=== PATIENT | male | born 1955 | race Caucasian/White ===

== ENCOUNTER 2017-01-26 15:15 | Inpatient (IN) ==
[2017-01-26] MEDS ORDERED: methylPREDNISolone 125 MG/2 ML VIAL IVP ONE (15:26)
[2017-01-26] MEDS ORDERED: Albuterol 2.5 MG/3 ML NEBULIZER IH ONE (15:26)
[2017-01-26] MEDS ORDERED: Vancomycin 1,000 MG in D5% in Water 250 ML IVPB ONE (15:39)
[2017-01-26] MEDS ORDERED: Cefepime HCl 2,000 MG in D5% in Water (Mini-Bag+) 100 ML IVPB ONE (15:39)
[2017-01-26 15:43] LABS: Basophils % 0.4 %; Hematocrit 33.3 % (37.5-50.1); Hemoglobin 10.7 g/dL (12.9-16.9); Immature Granulocytes % 3.5 % (0-4); Lymphocytes # 0.5 K/mcL (0.6-4.6); Lymphocytes % 6.2 %; Mean Corpuscular HGB Conc 32.1 g/dL (31.6-35.5); Mean Corpuscular Hemoglobin 31.8 pg (28.0-33.3); Mean Corpuscular Volume 99.1 fL (83.0-100.0); Mean Platelet Volume 9.4 fL (9.4-12.4); Monocytes # 0.5 K/mcL (0.0-1.3); Monocytes % 6.3 %; Neutrophils # 6.8 K/mcL (1.6-8.9); Nucleated Red Blood Cells 0.7 /100 WBC (0); Platelet Count 349 K/mcL (140-400); Red Blood Count 3.36 M/mcL (4.19-5.50); Segmented Neutrophils % 83.6 %
[2017-01-26 15:55] LABS: Calcium 8.7 mg/dL (8.6-10.8); Potassium 2.9 mEq/L (3.5-4.5)
[2017-01-26 16:42] LABS: VBG HCO3 36.1 mEq/L (21-27); VBG PH 7.41 pH Units (7.32-7.42)
[2017-01-26] MEDS ORDERED: Albuterol 2.5 MG/3 ML NEBULIZER IH PRN (21:30)
[2017-01-26] MEDS ORDERED: *HR* OxyCODONE Immed Rel 5 MG TABLET PO PRN (21:30)
[2017-01-26] MEDS ORDERED: *HR* Dextrose 50 % in Water (Syg) 50 ML SYRINGE IVP PRN (21:30)
[2017-01-26] MEDS ORDERED: Acetaminophen 325 MG TABLET PO PRN (21:30)
[2017-01-26] MEDS ORDERED: Dextrose Gel 15 GM PO PRN ×2 (21:30)
[2017-01-26] MEDS ORDERED: Ondansetron 4 MG/2 ML VIAL IVP PRN (21:30)
[2017-01-26] MEDS ORDERED: *HR* Morphine 2 MG/ML SYRINGE IVP PRN (21:30)
[2017-01-26] MEDS ORDERED: Naloxone 0.4 MG/ML INJ IVP PRN (21:30)
[2017-01-26] MEDS ORDERED: D5% in Water 1,000 ML IVC PRN (21:30)
[2017-01-26] MEDS ORDERED: Magic Mouthwash 10 ML UD Cup PO PRN (21:43)
[2017-01-26] MEDS ORDERED: NON-FORMULARY MEDICATION 1 EACH EACH (Oxygen [Oxygen] 3 L) SCH (21:45)
[2017-01-26] MEDS ORDERED: Potassium Chloride 20 MEQ, Lidocaine 1% 2 ML in D5% in Water 250 ML IVPB ONE (21:46)
[2017-01-26] MEDS ORDERED: Bumetanide 1 MG/4 ML VIAL IVP STA (21:50)
[2017-01-26] MEDS ORDERED: metOLazone 5 MG TABLET PO STA (21:50)
--- NOTE | 2017-01-26 21:55 | Internal Med History&Physical ---
Date of Encounter: 01/26/17 Time of Encounter: 21:00 Assessment and Plan (1) Acute and chronic respiratory failure ([id number]) Status: Acute . Qualifiers: Respiratory failure complication: hypoxia and hypercapnia Qualified Code(s) : J96.21 - Acute and chronic respiratory failure with hypoxia; J96.22 - Acute and chronic respiratory failure with hypercapnia (2) Acute exacerbation of chronic obstructive airways disease Status: Acute . (3) ESRD on hemodialysis Status: Chronic . (4) Elevated troponin Status: Acute . (5) HCAP (healthcare-associated pneumonia) Status: Acute . (6) History of coronary artery bypass graft Status: Chronic . (7) Lung cancer Status: Inactive . Qualifiers: Laterality: unspecified laterality Lung location: unspecified part of lung Qualified Code(s): C34.90 - Malignant neoplasm of unspecified part of unspecified bronchus or lung (8) CAD (coronary artery disease) Status: Chronic . Qualifiers: Coronary Disease-Associated Artery/Lesion type: bypass graft [place] vs. transplanted heart: [place] heart Associated angina: with unspecified angina Qualified Code(s): I25.709 - Atherosclerosis of coronary artery bypass graft(s) , unspecified, with unspecified angina pectoris (9) Diabetes mellitus, type 2 Status: Chronic . Qualifiers: Diabetes mellitus complication status: with unspecified complications Diabetes mellitus terminal operator insulin use: without terminal operator use Qualified Code( s): E11.8 - Type 2 diabetes mellitus with unspecified complications (10) HLD (hyperlipidemia) Status: Chronic . Qualifiers: Hyperlipidemia type: mixed hyperlipidemia Qualified Code(s): E78.2 - Mixed hyperlipidemia (11) HTN (hypertension) Status: Chronic . 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 (13) Post-radiation pneumonitis Status: Acute . Internal Medicine - H&P: HPI Chief complaint: Difficulty breathing Admitted From: Emergency Dept Plans for Post Hospital Care: Home History of present illness: Mr. Guardado is a 61 year old male admitted to [facility] emergency department when he presented with complaints of difficulty breathing. 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 The patient was sent to the ED for evaluation by his consult and oncology as he was undergoing evaluation for his ongoing cancer therapy. Because of his dyspnea and his generalized malaise and concerned for possible pneumonia. Patient had been undergoing outpatient management for community acquired infection without success since 01/20. Findings in the ED: Temperature 97. Pulse 70-107. Respirations 16-20. BP 145-167/82-99. O2 saturation by pulse oximetry 94-96% on 2 L per nasal cannula. WBC 8.1 hemoglobin 10.7 platelets 349,000. Differential normal. Metabolic panel normal except potassium 2.9 chloride 97. BUN 20 creatinine 1.62. GFR 44. Troponin 0.14 BNP 4784. Lactic acid 1.4. Venous blood gas pH 7.41 PCO2 57 PO2 22 bicarbonate 36. Chest x-ray noted unchanged ill-defined opacity in the right suprahilar region. Consistent with previously seen malignancy. Interstitial pulmonary edema. Suspected bilateral perihilar alveolar edema. Trace pericardial effusions. Mild cardiomegaly suggesting congestive heart failure. CT chest without contrast findings new centrilobular nodular opacities. Posterior certainly in the lingula concerning for infectious process. Decreased size of right perihilar mass. Adjacent airspace opacities in the right upper lobe. Decreased from prior exam. May represent resolving postobstructive pneumonia. Mild right perihilar groundglass opacities. Most prominent along the lung bases. Nonspecific. Postradiation pneumonitis. Asymmetric pulmonary edema or atypical infection. Small right pleural effusion. Mild mediastinal lymphadenopathy. Moderate to severe emphysema. Coronary atherosclerosis. Preliminary impression suggest acute on chronic hypoxic hypercapnic respiratory failure. Presentation is multifactorial. Patient presents in the setting of volume overload in a hemodialysis dependent end-stage renal disease. Demand ischemia with troponin elevation is noted. Modest metabolic and electrolyte derangements are apparent. Findings are suggestive of upper and lower respiratory tract infection without remedy. Tympanic inflammatory response syndrome criteria present at admission. The patient is acutely ill. Findings are suggestive of sepsis etiology/source to be clarified. Workup and treatments will proceed comprehensively. The patient was visited and interviewed and examined. Cumulative laboratory and radiographic data base will be considered and discussed. Pertinent ancillary medical records including ECW and PCI documentation when available was reviewed and considered. Given the patient's presenting concerns, past medical history, clinical findings and symptoms, he is admitted at this time will undergo further evaluation and disposition. Orders were written as per Computerized physician us customs and border officer system.......................................................................... .................... Consultative opinion will be sought as clinical circumstances justify. Initial consultation submitted to nephrology and dialysis team facilitate hemodialysis scheduling and disposition Pain management needs will be addressed. Laboratory/ radiographic data base will be updated as appropriate. Studies include: Cultures of blood urine sputum, UA, UDS, pt/inr, aptt, ddimer, cardiac injury panel, BNP, metabolic and hematologic panel, magnesium, phosphorus, ionized calcium, thyroid panel, lipid profile, A1c, C-peptide, CRP, sedimentation rate, respiratory infection profile, respiratory virus panel, blood gas, MRSAnasal swab, lactic acid, serologies, etc. Precautions: Aspiration, fall, delirium protocol/surveillance initiated. Telemetry with continuous hemodynamic monitoring and pulse oximetry initiated. Empiric antibiotic coverage (HCAP): Intravenous vancomycin, cefepime and Levaquin pending culture data. Special studies: CT/CTA chest, chest x-ray, telemetry, EKG. Pulmonary toilet: Incentive spirometry, aerosol bronchodilator, mucolytic, antitussive, supplemental oxygen. Corticosteroid therapy. CPAP/BiPAP supplemental oxygen delivery. Aerosol Mucomyst therapy. Fluid and electrolyte repletion efforts will proceed. Careful attention to fluid balance and renal recovery will be emphasized. Avoidance of nephrotoxic exposure and adverse drug drug interaction in the setting of impaired renal function will be monitored closely. Acute coronary syndrome protocol/surveillance initiated. Acute heart failure protocols/surveillance initiated. 1500-1800mls total fluid restriction per 234hrs. Gentle diuresis. Initiation of preload and afterload reduction therapies. Correction of metabolic and acid-base deficits and electrolyte repletion. DVT and PUD prophylaxis initiated: PPI therapy, intermittent pneumatic cuffs. Subcutaneous heparin. Early ambulation will be encouraged. Immunization updates recommended. Influenza and pneumococcal vaccinations as part of ongoing preventative healthcare recommendations strongly recommended. Smoking cessation counseling briefly addressed. Patient is a former smoker. Advanced care directive discussion briefly addressed. Patient does not declare any healthcare restrictions at this time. Cardiovascular risk appraisal and cardiovascular risk reduction efforts will be emphasized. Physical /occupational therapy may be counseled to evaluate patient's functional capacity and progressive mobility if circumstances justify. Sliding scale insulin coverage, ADA/RENAL dietary restraint and schedule an as- needed basis fingerstick glucose assessments were initiated. Nutrition/ diabetes education counseling may be considered as circumstances justify. Outpatient medication schedules will be reviewed, confirmed and facilitated as appropriate. Reconciliation of home treatments including adjustments, substitutions and reintroduction into the treatment regimen will address necessary maintenance therapies for chronic pre-existing medical conditions. Plan of care has been reviewed and discussed in detail with the patient. Questions addressed. Hospital course dictated by clinical findings, treatment response and potential consultative interventions. Patient is a risk for further acute clinical decline due to his presenting chief complaints and co-morbidities. Condition is serious. Prognosis is guarded. CODE STATUS is full. Past Med Surg Social Fam HX - Past Medical History Source: old records reviewed Medical history: arthritis, cancer, CHF, coronary artery disease, diabetes, dialysis, GERD, hyperlipidemia, hypertension, myocardial infarction, peripheral artery disease, renal disease Psychiatric history: anxiety, depression - Past Surgical History Surgical History: angioplasty/stent, carotid endarterectomy, coronary bypass ( CABG), orthopedic, other, other - Social History Smoking Status: Former smoker Smokeless Tobacco Status: No Alcohol use: none Drug use: none - Family History Brother Adopted: No Family Member Ethnicity: Non- Living Status: Hx Family Cardiac Disorders: Yes Hx Family Respiratory Disorders: Yes (dad black lung) Hx Family Cancer: Yes (mother) Hx Family GI Disorders: No Hx Family Endocrine Disorder: Yes (sister) Hx Family Neuromuscular Disorders: No Hx Family Neurologic Disorders: No Hx Family HEENT Disorders: No Hx Family Autoimmune Disorders: No Mother Adopted: No Living Status: Hx Family Cardiac Disorders: No Hx Family Respiratory Disorders: No Hx Family Cancer: Yes Hx Family GI Disorders: No Hx Family Endocrine Disorder: No Hx Family Neuromuscular Disorders: No Hx Family Neurologic Disorders: No Hx Family HEENT Disorders: No Hx Family Autoimmune Disorders: No Father Adopted: No Family Member Ethnicity: Non- Living Status: Hx Family Cardiac Disorders: No Hx Family Respiratory Disorders: Yes Hx Family Cancer: No Hx Family GI Disorders: No Hx Family Endocrine Disorder: No Hx Family Neuromuscular Disorders: No Hx Family Neurologic Disorders: No Hx Family HEENT Disorders: No Hx Family Autoimmune Disorders: No Internal Medicine - H&P: Meds Atorvastatin [Lipitor] 40 mg PO HS #30 tablet 07/03/15 [Rx] Famotidine [Pepcid] 10 mg PO BID #60 tablet 07/03/15 [Rx] Albuterol Sulfate [Albuterol Inhaler] 2 puff IH Q4HR 07/29/15 [History] Budesonide/Formoterol 160/4.5 [Symbicort] 2 puff IH BIDR 07/29/15 [History] Gabapentin [Neurontin] 100 mg PO TID 07/29/15 [History] Glimepiride [Amaryl] 2 mg PO DAILY 07/29/15 [History] Calcium Acetate [Phos-LO] 667 mg PO TIDWM #90 capsule 10/02/15 [Rx] Carvedilol [Coreg] 25 mg PO BID #60 tablet 10/02/15 [Rx] Furosemide [Lasix] 40 mg PO DAILY 08/31/16 [History] Oxygen 3 l .ROUTE AD 08/31/16 [History] Albuterol Neb [Proventil Neb] 2.5 mg IH Q4HR PRN #30 vial.neb 09/03/16 [Rx] Multivitamin [Multivitamins] 1 cap PO DAILY 11/03/16 [History] Magic Mouthwash [Magic Mouthwash BLM] 10 ml PO QID PRN #240 ml 12/18/16 [Rx] Chlorpromazine HCl 25 mg PO Q8HR PRN #14 tablet 01/18/17 [Rx] Oxycodone HCl [Roxicodone 30 MG Immed Release] 30 mg PO Q6HR PRN #90 tab [Rx] Sucralfate [Carafate] 1 gm PO QIDAC #120 tablet 01/24/17 [Rx] Blood Sugar Diagnostic [Glucose Test Strip] 1 each ACHS #100 strip 01/30/17 [ Rx] Lancets [Accu-Chek Safe-T-Pro] 1 each ACHS #100 each 01/30/17 [Rx] Levofloxacin [Levaquin] 750 mg PO Q48H #3 tablet 01/30/17 [Rx] Oseltamivir Phosphate [Tamiflu] 30 mg PO BID #6 capsule 01/30/17 [Rx] PredniSONE 40 mg PO DAILY #10 tablet 01/30/17 [Rx] Umeclidinium [place] [Incruse Ellipta] 62.5 mcg IH DAILY #1 blst.w.dev 01/30/17 [Rx] Allergies codeine Allergy (Verified 01/20/17 23:57) Itching pollen extracts Allergy (Verified 01/20/17 23:57) Itching shellfish derived Adverse Reaction (Verified 01/20/17 23:57) Nausea IVP DYE Allergy (Intermediate, Uncoded 01/20/17 23:57) Vomiting All Systems PM: A 10-system review of systems was performed and is negative for pertinent findings except as documented above in the HPI. Allergies Allergy/AdvReac Type Severity Reaction Status Date / Time codeine Allergy Itching Verified 01/20/17 23:57 pollen extracts Allergy Itching Verified 01/20/17 23:57 shellfish derived AdvReac Nausea Verified 01/20/17 23:57 IVP DYE Allergy Intermediate Vomiting Uncoded 01/20/17 23:57 Patient Problems (Last Updated 01/26/17 @ 21:59 by Yariel Gary MD) Acute and chronic respiratory failure (yriua-[id number]-lqxufsm) (Acute Medical) J96.20 Acute exacerbation of chronic obstructive airways disease (Acute Medical) J44.1 Elevated troponin (Acute Medical) R79.89 HCAP (healthcare-associated pneumonia) (Acute Medical) J18.9 Post-radiation pneumonitis (Acute Medical) J70.0 CAD (coronary artery disease) (Chronic Medical) I25.10 Diabetes mellitus, type 2 (Chronic Medical) E11.9 ESRD on hemodialysis (Chronic Medical) N18.6, Z99.2 HLD (hyperlipidemia) (Chronic Medical) E78.5 HTN (hypertension) (Chronic Medical) I10 History of coronary artery bypass graft (Chronic Surgical) Z95.1 Lung cancer (Chronic Medical) C34.90 Systolic heart failure secondary to coronary artery disease (Chronic Medical) I50.20, I25.10 Acute bronchitis (Acute Medical) J20.9 Rpezh-or-qbqwtiw kidney injury (Acute Medical) N17.9, N18.9 CKD (chronic kidney disease) (Acute Medical) N18.9 COPD exacerbation (Acute Medical) J44.1 Chronic renal disease (Acute Medical) N18.9 Community acquired pneumonia (Acute Medical) J18.9 DVT prophylaxis (Acute Medical) [id number] Dyspnea (Acute Medical) R06.00 Dyspnea (Acute Medical) R06.00 Elevated troponin (Acute Medical) R79.89 Hemoptysis (Acute Medical) R04.2 Hyperphosphatemia (Acute Medical) E83.39 Hypocalciuria (Acute Medical) E83.59 Hypomagnesemia (Acute Medical) E83.42 Hyponatremia (Acute Medical) E87.1 Hypoxia (Acute Medical) R09.02 Leukocytosis (Acute Medical) D72.829 NSTEMI (non-ST elevated myocardial infarction) (Acute Medical) I21.4 NSTEMI (non-ST elevated myocardial infarction) (Acute Medical) I21.4 Normocytic anemia (Acute Medical) D64.9 Pedal edema (Acute Medical) R60.0 Pneumonia (Acute Medical) J18.9 Pneumonia (Acute Medical) J18.9 Pneumonia due to Gram-negative bacteria (Acute Medical) J15.6 Renal failure (Acute Medical) N19 Right middle lobe pneumonia (Acute Medical) J18.9 Sepsis (Acute Medical) A41.9 Superficial injury of penis without infection (Acute Medical) S30.93XA Upper respiratory infection (Acute Medical) J06.9 Anemia (Chronic Medical) D64.9 Anemia in CKD (chronic kidney disease) (Chronic Medical) N18.9, D63.1 CHF (congestive heart failure) (Chronic Medical) I50.9 COPD (chronic obstructive pulmonary disease) (Chronic Medical) J44.9 Constipation (Chronic Medical) K59.00 Diabetes mellitus (Chronic Medical) E11.9 ESRD (end stage renal disease) (Chronic Medical) N18.6 ESRD (end stage renal disease) on dialysis (Chronic Medical) N18.6, Z99.2 GERD (gastroesophageal reflux disease) (Chronic Medical) K21.9 Mitral valve insufficiency (Chronic Medical) I34.0 Non-insulin dependent type 2 diabetes mellitus (Chronic Medical) E11.9 Solitary kidney (Chronic Medical) Q60.0 Tobacco abuse (Chronic Medical) Z72.0 Type 2 diabetes mellitus (Chronic Medical) E11.9 Acute exacerbation of chronic obstructive pulmonary disease (COPD) (Resolved Medical) J44.1 Acute kidney injury superimposed on chronic kidney disease (Resolved Medical) S37.009A, N18.9 DVT prophylaxis (Resolved Medical) [id number] Pneumonia (Resolved Medical) J18.9 Tachycardia (Resolved Medical) R00.0 CKD (chronic kidney disease) stage 4, GFR 15-29 ml/min (Inactive Medical) CKD (chronic kidney disease), stage IV (Inactive Medical) Chronic kidney disease (Inactive Medical) N18.9 Chronic renal failure (Inactive Medical) N18.9 Congestive heart failure (Inactive Medical) Diarrhea (Inactive Medical) R19.7 Dog bite (Inactive Medical) Epistaxis (Inactive Medical) R04.0 Epistaxis (Inactive Medical) R04.0 Epistaxis (Inactive Medical) R04.0 Epistaxis, recurrent (Inactive Medical) R04.0 Hemoptysis (Inactive Medical) R04.2 Hemoptysis (Inactive Medical) R04.2 Hypoglycemia (Inactive Medical) E16.2 Hypokalemia due to loss of potassium (Inactive Medical) E87.6 Intractable hiccups (Inactive Medical) R06.6 Laceration (Inactive Medical) Laceration of penis (Inactive Medical) Pneumonia (Inactive Medical) J18.9 Skin tear (Inactive Medical) Squamous cell lung cancer (Inactive Medical) C34.90 - Constitutional Constitutional: as per HPI, fatigue, malaise, weakness, no chills, no fever(s), no night sweats - EENT Eyes: as per HPI, no change in vision, no discharge, no pain, no photophobia Ears: as per HPI, no ear discharge, no ear pain, no tinnitus Nose, mouth and throat: as per HPI, no dysphagia, no nasal discharge, no neck pain, no sore throat - Cardiovascular Cardiovascular ROS IM: as per HPI, dyspnea, dyspnea on exertion, other, no chest pain, no diaphoresis, no lightheadedness, no palpitations, no syncope - Respiratory Respiratory: as per HPI, cough, dyspnea, dyspnea on exertion, wheezing, chest congestion, no excessive phlegm production - Gastrointestinal Gastrointestinal: as per HPI, no abdominal pain, no diarrhea, no hematemesis, no hematochezia, no melena, no nausea, no vomiting - Genitourinary Genitourinary ROS male: as per HPI, other - Musculoskeletal Musculoskeletal ROS IM: as per HPI, no numbness, no tingling - Integumentary Integumentary IM: as per HPI, no rash, no unusual bruising - Neurological Neurological ROS: as per HPI, no confusion, no convulsions, no focal weakness, no numbness, no tingling, no tremor(s) - Psychiatric Psychiatric: as per HPI - Endocrine Endocrine IM: as per HPI - Hematologic/Lymphatic Hematologic/Lymphatic: as per HPI, no easy bruising - Allergic/Immunologic Allergic/Immunologic: as per HPI - Constitutional Vitals: Temp Pulse Resp BP Pulse Ox 98.2 F 107 18 167/99 99 01/26/17 21:23 01/26/17 21:23 01/26/17 21:23 01/26/17 21:23 01/26/17 21:23 Vital Signs Temp Pulse Resp BP Pulse Ox 01/26/17 21:23 98.2 F 107 18 167/99 99 01/26/17 19:00 18 144/82 01/26/17 18:31 112 16 155/98 97 01/26/17 15:40 95 01/26/17 15:16 97.5 F L 70 16 145/82 94 Intake and Output 01/26/17 01/26/17 01/26/17 07:59 15:59 23:59 Intake Total 250 / 250 Balance 250 / 250 Intake: IV Fluids 250 / 250 Vancocin 1,000 MG In 250 / 250 Dextrose 5% 250 ML @ 167 mls/hr IVPB ONCE ONE Rx#: [id number] Other: Weight 65.317 kg 63.503 kg Patient Weight 01/26/17 23:59 Weight 63.503 kg General appearance: Present: cachectic, disheveled, mild distress, A&O X 3, answers questions appropriately - Head Head exam: Present: atraumatic, normocephalic - Eye Eye exam: Present: EOMI, PERRL, conjuntiva pink, sclera anicteric Pupils: Present: normal accommodation, PERRL - ENT ENT exam: Present: mucous membranes moist, normal oropharynx - Neck Neck exam general surgery: Present: supple, trachea midline. Absent: lymphadenopathy - Respiratory Respiratory exam: Present: decreased breath sounds, rhonchi, wheezes. Absent: accessory muscle use, CTAB, rales - Cardiovascular Cardiovascular exam: Present: distant heart sounds, RRR, +S1, +S2. Absent: diastolic murmur, gallop, rubs, systolic murmur - GI/Abdominal GI/Abdominal exam: Present: normal bowel sounds, soft, no peritoneal signs. Absent: distended, tenderness - Extremities Exam Extremities exam: Present: full ROM, warm, radial pulses palpable and symetrical. Absent: calf tenderness, cyanotic, pedal edema - Neurological Exam Neurological exam: Present: alert, CN II-XII intact, oriented X3, no focal deficits. Absent: pronater drift, facial droop, speech deficit - Psychiatric Psychiatric exam: Present: normal affect, normal mood - Skin Skin exam: Present: dry, intact Internal Med - H&P Results - Labs CBC & Chem 7: 01/30/17 06:43 01/30/17 06:43 Labs: Short CBC 01/26/17 Range/Units 15:33 WBC 8.1 D (4.3-11.1) K/mcL Hgb 10.7 L D (12.9-16.9) g/dL Hct 33.3 L (37.5-50.1) % Plt Count 349 D (140-400) K/mcL Neutrophils # 6.8 (1.6-8.9) K/mcL BMP 01/26/17 Range/Units 15:33 Sodium 139 (136-145) mEq/L Potassium 2.9 L (3.5-4.5) mEq/L Chloride 97 L (98-109) mEq/L Carbon Dioxide 29 (19-29) mEq/L BUN 20 (8-26) mg/dL Creatinine 1.62 H (0.72-1.25) mg/dL Glucose 77 (70-99) mg/dL Calcium 8.7 (8.6-10.8) mg/dL Cardiac Enzymes 01/26/17 Range/Units 15:33 Troponin I 0.14 H* (0-0.03) ng/mL Abnormal lab results RBC 3.36 M/mcL (4.19-5.50) L 01/26/17 15:33 Hgb 10.7 g/dL (12.9-16.9) L D 01/26/17 15:33 Hct 33.3 % (37.5-50.1) L 01/26/17 15:33 RDW 19.0 % (11.5-14.5) H 01/26/17 15:33 Lymphocytes # 0.5 K/mcL (0.6-4.6) L 01/26/17 15:33 Nucleated RBCs/100 WBC 0.7 /100 WBC (0) H 01/26/17 15:33 VBG pCO2 57 mmHg (41-51) H 01/26/17 16:26 VBG pO2 22 mmHg (25-40) L 01/26/17 16:26 VBG HCO3 36.1 mEq/L (21-27) H 01/26/17 16:26 Potassium 2.9 mEq/L (3.5-4.5) L 01/26/17 15:33 Chloride 97 mEq/L (98-109) L 01/26/17 15:33 Creatinine 1.62 mg/dL (0.72-1.25) H 01/26/17 15:33 Est GFR ( Amer) 53 (> 60) L 01/26/17 15:33 Est GFR (Non-Af Amer) 44 (> 60) L 01/26/17 15:33 Troponin I 0.14 ng/mL (0-0.03) H* 01/26/17 15:33 B-Natriuretic Peptide 4784 pg/mL (0-100) H 01/26/17 15:33 Laboratory Last Values WBC 8.1 K/mcL (4.3-11.1) D 01/26/17 15:33 RBC 3.36 M/mcL (4.19-5.50) L 01/26/17 15:33 Hgb 10.7 g/dL (12.9-16.9) L D 01/26/17 15:33 Hct 33.3 % (37.5-50.1) L 01/26/17 15:33 MCV 99.1 fL (83.0-100.0) 01/26/17 15:33 MCH 31.8 pg (28.0-33.3) 01/26/17 15:33 MCHC 32.1 g/dL (31.6-35.5) 01/26/17 15:33 RDW 19.0 % (11.5-14.5) H 01/26/17 15:33 Plt Count 349 K/mcL (140-400) D 01/26/17 15:33 MPV 9.4 fL (9.4-12.4) 01/26/17 15: Immature Gran % 3.5 % (0-4) 01/26/17 15:33 Seg Neutrophils % 83.6 % 01/26/17 15:33 Lymphocytes % 6.2 % 01/26/17 15:33 Monocytes % 6.3 % 01/26/17 15:33 Eosinophils % 0.0 % 01/26/17 15: Basophils % 0.4 % 01/26/17 15:33 Neutrophils # 6.8 K/mcL (1.6-8.9) 01/26/17 15: Lymphocytes # 0.5 K/mcL (0.6-4.6) L 01/26/17 15: Monocytes # 0.5 K/mcL (0.0-1.3) 01/26/17 15: Eosinophils # 0.0 K/mcL (0.0-0.6) 01/26/17 15: Basophils # 0.0 K/mcL (0.0-0.2) 01/26/17 15:33 Nucleated RBCs/100 WBC 0.7 /100 WBC (0) H 01/26/17 15:33 VBG pH 7.41 pH Units (7.32-7.42) 01/26/17 16:26 VBG pCO2 57 mmHg (41-51) H 01/26/17 16:26 VBG pO2 22 mmHg (25-40) L 01/26/17 16:26 VBG HCO3 36.1 mEq/L (21-27) H 01/26/17 16:26 Sodium 139 mEq/L (136-145) 01/26/17 15:33 Potassium 2.9 mEq/L (3.5-4.5) L 01/26/17 15:33 Chloride 97 mEq/L (98-109) L 01/26/17 15:33 Carbon Dioxide 29 mEq/L (19-29) 01/26/17 15:33 BUN 20 mg/dL (8-26) 01/26/17 15:33 Creatinine 1.62 mg/dL (0.72-1.25) H 01/26/17 15:33 Est GFR ( Amer) 53 (> 60) L 01/26/17 15:33 Est GFR (Non-Af Amer) 44 (> 60) L 01/26/17 15:33 BUN/Creatinine Ratio 12 (6-26) 01/26/17 15:33 Glucose 77 mg/dL (70-99) 01/26/17 15:33 Calculated Osmolality 289 (280-300) 01/26/17 15:33 Lactic Acid 1.4 mmol/L (0.5-2.2) 01/26/17 15:33 Calcium 8.7 mg/dL (8.6-10.8) 01/26/17 15:33 Magnesium 2.0 mg/dL (1.6-2.6) 01/26/17 15:33 Troponin I 0.14 ng/mL (0-0.03) H* 01/26/17 15:33 B-Natriuretic Peptide 4784 pg/mL (0-100) H 01/26/17 15:33 - Impressions Chest X-Ray 01/26/17 15:35 IMPRESSION: 1. Unchanged ill-defined opacity in the right suprahilar region consistent with previously seen malignancy. 2. Interstitial pulmonary edema, suspected bilateral perihilar alveolar edema, trace pericardial effusions, and mild cardiomegaly, suggesting congestive heart failure. D/ / Sabas Mg MD / Sabas Mg MD Interpreting Provider: Sabas Mg MD Chest CT 01/26/17 15:40 IMPRESSION: New centrilobular nodular opacities posteriorly in the lingula, concerning for an infectious process. Decreased size of right perihilar mass. Adjacent airspace opacities in the right upper lobe are also decreased from the prior exam, and may represent resolving postobstructive pneumonia. Mild right perihilar ground-glass opacities, most prominently along the lung bases. They are nonspecific and could be related to postradiation pneumonitis, asymmetric pulmonary edema, or atypical infection. Small right pleural effusion, new from prior exam. Mild mediastinal lymphadenopathy, slightly decreased from prior exam. Moderate to severe emphysema. Coronary atherosclerosis. D/ / 01/26/2017 17:56:57 Baldo Kearney MD / rupal Interpreting Provider: Baldo Kearney MD - Attending Attestation Allergies codeine Allergy (Verified 01/20/17 23:57) Itching pollen extracts Allergy (Verified 01/20/17 23:57) Itching shellfish derived Adverse Reaction (Verified 01/20/17 23:57) Nausea IVP DYE Allergy (Intermediate, Uncoded 01/20/17 23:57) Vomiting Home Medications Medication Instructions Recorded Confirmed Type Albuterol Sulfate [Albuterol 2 puff IH Q4HR 07/29/15 01/26/17 History Inhaler] Budesonide/Formoterol 160/4.5 2 puff IH BIDR 07/29/15 01/26/17 History [Symbicort] Gabapentin [Neurontin] 100 mg PO TID 07/29/15 01/26/17 History Glimepiride [Amaryl] 2 mg PO DAILY 07/29/15 01/26/17 History Furosemide [Lasix] 40 mg PO DAILY 08/31/16 01/26/17 History Oxygen 3 l .ROUTE AD 08/31/16 01/26/17 History Multivitamin [Multivitamins] 1 cap PO DAILY 11/03/16 01/26/17 History Tiotropium [Spiriva] 18 mcg IH DAILY 01/26/17 01/26/17 History I & O 01/23/17 01/24/17 01/25/17 01/26/17 23:59 23:59 23:59 23:59 Intake Total 250 / 250 Balance 250 / 250 Weight 63.503 kg Intake: IV Fluids 250 / 250 Vancocin 1,000 MG In 250 / 250 Dextrose 5% 250 ML @ 167 mls/hr IVPB ONCE ONE Rx#: [id number] Medications Acetaminophen (Tylenol) 650 mg PO Q6HR PRN PRN Reason: Mild Pain (1-3) Stop: 07/28/17 21:31 Albuterol Sulfate (Proventil Neb) 2.5 mg IH Q2H PRN PRN Reason: Shortness Of Breath/Wheezing Stop: 07/28/17 21:31 Albuterol/Ipratropium (Duoneb) 3 ml IH QIDR LIDA Stop: 07/28/17 23:01 Atorvastatin Calcium (Lipitor) 40 mg PO HS LIDA Stop: 07/29/17 21:01 Bumetanide (Bumex) 1 mg IVP ONCE STA Stop: 01/26/17 21:51 Calcium Acetate (Phos-Lo) 667 mg PO TIDWM LIDA Stop: 07/29/17 08:01 Carvedilol (Coreg) 25 mg PO BID LIDA PRN Reason: Protocol Stop: 07/29/17 09:01 Dextrose/Water (Dextrose 50% (Syg)) 25 ml IVP AD PRN PRN Reason: Hypoglycemia Stop: 07/28/17 21:31 Docusate Sodium (Colace) 100 mg PO BID LIDA Stop: 07/29/17 09:01 Famotidine (Pepcid) 10 mg PO BID LIDA PRN Reason: Protocol Stop: 07/29/17 09:01 Furosemide (Lasix) 40 mg PO DAILY [facility] Stop: 07/29/17 09:01 Gabapentin (Neurontin) 100 mg PO TID LIDA Stop: 07/29/17 09:01 Glucagon (Glucagen) 1 mg IM ONCE PRN PRN Reason: Hypoglycemia Stop: 07/28/17 21:31 Glucose (Gluctose) 15 gm PO ONCE PRN PRN Reason: Hypoglycemia Stop: 07/28/17 21:31 Glucose (Gluctose) 30 gm PO ONCE PRN PRN Reason: Hypoglycemia Stop: 07/28/17 21:31 Cefepime HCl 2,000 mg/ (Dextrose) 100 mls @ 200 mls/hr IVPB Q12HR [facility] Stop: 07/29/17 06:01 Levofloxacin/Dextrose (Levaquin 750mg/150 Ml) 750 mg in 150 mls @ 100 mls/hr IVPB DAILY [facility] PRN Reason: Protocol Stop: 07/29/17 09:01 Vancomycin HCl 1,000 mg/ (Dextrose) 250 mls @ 167 mls/hr IVPB RPHPROT LIDA PRN Reason: Protocol Stop: 07/28/17 22:01 Dextrose (Dextrose 5%) 1,000 mls @ 100 mls/hr IVC .Q10H PRN PRN Reason: HYPOGLYCEMIA Stop: 07/28/17 21:31 Potassium Chloride 20 meq/ (Lidocaine 2 ml/ Dextrose) 262 mls @ 131 mls/hr IVPB ONCE ONE Stop: 01/26/17 23:45 Insulin Detemir (Levemir) 10 unit 0.15 unit/kg (10 unit) SQ HS LIDA Stop: 07/29/17 21:01 Insulin Human Lispro (Humalog) 0 units SQ TIDAC LIDA PRN Reason: Protocol Stop: 07/29/17 07:31 Insulin Human Lispro (Humalog) 0 units SQ HS LIDA PRN Reason: Protocol Stop: 07/29/17 21:01 Metolazone (Zaroxolyn) 5 mg PO ONCE STA Stop: 01/26/17 21:51 Morphine Sulfate (Morphine Sulfate) 2 mg IVP Q2H PRN PRN Reason: Severe Pain (7-10) Stop: 07/28/17 21:31 Naloxone HCl (Narcan) 0.4 mg IVP Q2MIN PRN PRN Reason: Opioid Reversal Stop: 07/28/17 21:31 Non-Formulary Medication (Magic Mouthwash [Magic Mouthwash Blm]) 10 ml PO QID PRN PRN Reason: Mouth Sore Pain Non-Formulary Medication (Oxycodone Hcl [Roxicodone 30 Mg Immed Release]) 30 mg PO Q6HR PRN PRN Reason: Pain Non-Formulary Medication (Oxygen [Oxygen]) 3 l .ROUTE AD [facility] Stop: 07/28/17 21:46 Ondansetron HCl (Zofran) 4 mg IVP Q8HR PRN PRN Reason: Nausea And Vomiting Stop: 07/28/17 21:31 Prednisone (Prednisone) 40 mg PO DAILY [facility] Stop: 07/29/17 09:01 Sucralfate (Carafate) 1 gm PO QIDAC [facility] Stop: 07/28/17 22:01 Discontinued Medications Albuterol Sulfate (Proventil Neb) 2.5 mg IH ONCE ONE Stop: 01/26/17 15:27 Last Admin: 01/26/17 16:10 Dose: 2.5 mg Famotidine (Pepcid) 20 mg PO BID [facility] Stop: 07/29/17 09:01 Cefepime HCl 2,000 mg/ (Dextrose) 100 mls @ 200 mls/hr IVPB ONCE ONE Stop: 01/26/17 16:08 Last Admin: 01/26/17 18:29 Dose: 200 mls/hr Vancomycin HCl 1,000 mg/ (Dextrose) 250 mls @ 167 mls/hr IVPB ONCE ONE PRN Reason: Protocol Stop: 01/26/17 17:08 Last Infusion: 01/26/17 18:17 Dose: 0 mls/hr Methylprednisolone (Solu-Medrol) 125 mg IVP ONCE ONE Stop: 01/26/17 15:27 Last Admin: 01/26/17 16:35 Dose: 125 mg Oxycodone HCl (Roxicodone) 10 mg PO Q6HR PRN PRN Reason: Moderate Pain (4-6) Stop: 07/28/17 21:31 Potassium Chloride (Potassium Chloride) 20 meq PO ONCE ONE Stop: 01/26/17 16:18 Last Admin: 01/26/17 16:34 Dose: 20 meq Nursing Notes 01/26/17 18:20 Transport Report by Louise Dunn Date: 01/26/17 Transport Method: Stretcher codeine Allergy (Verified 01/20/17 23:57) Itching pollen extracts Allergy (Verified 01/20/17 23:57) Itching shellfish derived Adverse Reaction (Verified 01/20/17 23:57) Nausea IVP DYE Allergy (Intermediate, Uncoded 01/20/17 23:57) Vomiting Resuscitation Status 01/26/17 15:35 ECG 12 lead ECG [ECG] Stat Mode Of Transportation: Stretcher Reason For Exam: dyspnea Exam Performed At:: [facility] Oxygen: 3 Mental Status: Fall Risk: Isolation: Nurse Required for Transport: No ___ Yes Limb Restrictions: No ___ Yes Behavioral issue/Risk for Elopement: No ___ Yes Telemetry Room Notification: Destination: MRI XRAY STRESS ULTRASOUND CT DIALYSIS ENDO OTHER: Depart Time: Nurse: Transporter: Arrive Time: Received by: ___ Return Time: Nurse: Transporter: ] Initialized on 01/26/17 18:20 - END OF NOTE 01/26/17 15:43 Transport Report by Helen Alves Date: 01/26/17 Transport Method: Stretcher codeine Allergy (Verified 01/20/17 23:57) Itching pollen extracts Allergy (Verified 01/20/17 23:57) Itching shellfish derived Adverse Reaction (Verified 01/20/17 23:57) Nausea IVP DYE Allergy (Intermediate, Uncoded 01/20/17 23:57) Vomiting Resuscitation Status 01/26/17 15:35 XR chest 1V portable [XR] Stat Mode Of Transportation: Stretcher Reason For Exam: dyspnea Exam Performed At:: [facility] Additional Notes/Special Instructions: 26...[facility] ECG 12 lead ECG [ECG] Stat Mode Of Transportation: Stretcher Reason For Exam: dyspnea Exam Performed At:: [facility] 01/26/17 15:40 CT chest w/o contrast [CT chest wo con] [CT] Stat Mode Of Transportation: Stretcher Reason For Exam: dyspnea Order Doctor: Yeyo Garcia Exam Performed At:: [facility] Allergic to Contrast: No Oxygen: 3 Mental Status: Fall Risk: Isolation: Nurse Required for Transport: No ___ Yes Limb Restrictions: No ___ Yes Behavioral issue/Risk for Elopement: No ___ Yes Telemetry Room Notification: Destination: MRI XRAY STRESS ULTRASOUND CT DIALYSIS ENDO OTHER: Depart Time: Nurse: Transporter: Arrive Time: Received by: ___ Return Time: Nurse: Transporter: ] Initialized on 01/26/17 15:43 - END OF NOTE Orders 01/26/17 15:26 Albuterol Neb [Proventil Neb] 2.5 mg IH ONCE ONE MethylPREDNISolone [Solu-MEDROL] 125 mg IVP ONCE ONE 01/26/17 15:33 B-Type Natriuretic Peptide Stat Comment: Specimen: Send someone from the department to collect Basic Metabolic Panel Stat Comment: Specimen: Send someone from the department to collect Complete Blood Count [HEME] Stat Comment: Specimen: Send someone from the department to collect Culture,Blood [BC] Stat Comment: AGNES Source: Peripheral Venipuncture Quantity: 2 Specimen: Send someone from the department to collect Specimen Description: Lactic Acid ([facility] Only) Stat Comment: Specimen: Send someone from the department to collect Magnesium Stat Troponin I Stat Comment: Specimen: Send someone from the department to collect 01/26/17 15:35 12 lead ECG assessment [RC] NOW Cardiac monitoring [RC] .ONCE Saline lock [RC] .ONCE Supplemental oxygen titration [RC] .ONCE Physician Instructions: Vital Signs Assessment [RC] PROTOCOL XR chest 1V portable [XR] Stat Mode Of Transportation: Stretcher Reason For Exam: dyspnea Exam Performed At:: [facility] Additional Notes/Special Instructions: 26...[facility] ECG 12 lead ECG [ECG] Stat Mode Of Transportation: Stretcher Reason For Exam: dyspnea Exam Performed At:: [facility] 01/26/17 15:38 Culture,Sputum with Gram Stain [RM] Stat Comment: [facility] Source: Sputum Specimen: Send someone from the department to collect Specimen Description: 01/26/17 15:39 Cefepime HCl [Maxipime] 2,000 mg D5% in Water (Mini-Bag+) [Dextrose 5% ( Minibag+) 100 ML] 100 ml IVPB ONCE Vancomycin [Vancocin] 1,000 mg D5% in Water [Dextrose 5%] 250 ml IVPB ONCE 01/26/17 15:40 CT chest w/o contrast [CT chest wo con] [CT] Stat Mode Of Transportation: Stretcher Reason For Exam: dyspnea Order Doctor: Yeyo Garcia Exam Performed At:: [facility] Allergic to Contrast: No 01/26/17 16:17 Potassium Chloride 20 meq PO ONCE ONE 01/26/17 16:26 Culture,Blood,Additional [BC] Stat Comment: [facility] Source: Peripheral Venipuncture Quantity: 1 Specimen: Send someone from the department to collect Specimen Description: VBG [Venous Blood Gas] Stat Comment: Specimen: Send someone from the department to collect 01/26/17 18:[address] Stat Comment: Reason for Visit: pneumonia 01/26/17 21:14 Consult to Nutrition [CONS] Routine Comment: Consulting Provider: NUTRITION Reason for Dietary Consult: MST Score 01/26/17 21:26 Apply anti-embolic stockings [RC] .NOW Aspiration precautions [RC] .CONTINUOUS Falls precautions (Kory-Cartagena [RC] ONCE Incentive Spirometry [RC] .6 TIMES PER HR WHILE AWAKE Drug Screen, Urine [UCHEM] Stat Comment: Specimen: Pre-Collection Label Viral Culture,Respiratory [] Stat Comment: [facility] Source: Nasopharyngeal Specimen: Send someone from the department to collect Specimen Description: 01/26/17 21:30 Glucose, blood poc measurement [RC] ACHS Vital Signs Assessment [RC] Q4H Consult to Dry Wall Sprayer [CONS] Routine Comment: Arterial Blood Gas Stat Comment: Specimen: Send someone from the department to collect Legionella Antigen [] Stat Comment: [facility] Source: Urine,Clean Catch Specimen: Send someone from the department to collect Specimen Description: S. Pneumoniae Antigen [] Stat Comment: [facility] Source: Urine,Clean Catch Specimen: Send someone from the department to collect Specimen Description: Acetaminophen [Tylenol] 650 mg PO Q6HR PRN Albuterol Neb [Proventil Neb] 2.5 mg IH Q2H PRN D5% in Water [Dextrose 5%] 1,000 ml IVC 100 mls/hr Dextrose 50 % in Water (Syg) [Dextrose 50% (Syg)] 25 ml IVP AD PRN Dextrose Gel [Gluctose] 15 gm PO ONCE PRN Dextrose Gel [Gluctose] 30 gm PO ONCE PRN Glucagon, Human Recombinant [GlucaGen] 1 mg IM ONCE PRN Morphine [Morphine Sulfate] 2 mg IVP Q2H PRN Naloxone [Narcan] 0.4 mg IVP Q2MIN PRN Ondansetron [Zofran] 4 mg IVP Q8HR PRN OxyCODONE Immed Rel [Roxicodone] 10 mg PO Q6HR PRN Resuscitation Status: Active [RES] Routine Comment: Resuscitation Status: Full Code 01/26/17 21:31 COPD Discharge Checklist [RC] .atdischarge Cardiac monitoring [RC] .ONCE Head of bed elevation [RC] .ONCE Hypoglycemia Treatment Orders [RC] .once Notify provider [RC] once Physician Instructions: Peripheral IV [RC] CONT Consult to Nurse Navigator [CONS] Routine Comment: 01/26/17 21:32 Placement to Observation Routine Physician Instructions: Reason for Visit: Difficulty breathing Is VTE Prophylaxis Indicated?: Yes 01/26/17 21:33 Bed rest [RC] .CONT Physician Instructions: Bed rest w/bathroom privileges [RC] .PRN Cardiac Monitoring Med/Surg [RC] .CONT Telemetry Reason: Acute Heart Failure Continuous pulse oximetry [RC] CONT Comment: Measure intake and output [RC] QSHIFT Measure weight [RC] DAILY Oxygen via nasal cannula Nasal Cannula 2 lpm Comment: Titrate O2 to main O2 sat greater than: 92% RT has an order or consult [RC] NOW 01/26/17 21:41 Hgb A1C Routine Comment: Specimen: Send someone from the department to collect 01/26/17 21:43 Magic Mouthwash [Magic Mouthwash BLM] 10 ml PO QID PRN How will this medication be supplied?: Pharmacy to Subsitute Oxycodone HCl [Roxicodone 30 MG Immed Release] 30 mg PO Q6HR PRN How will this medication be supplied?: Pharmacy to Subsitute 01/26/17 21:45 Troponin I Q6H Comment: Specimen: Send someone from the department to collect Oxygen [Oxygen] 3 l .ROUTE AD How will this medication be supplied?: Pharmacy to Subsitute 01/26/17 21:46 Potassium Chloride [KCl] 20 meq Lidocaine 1% [Xylocaine] 2 ml D5% in Water [ Dextrose 5%] 250 ml IVPB ONCE 01/26/17 21:50 Bumetanide [Bumex] 1 mg IVP ONCE STA Metolazone [Zaroxolyn] 5 mg PO ONCE STA 01/26/17 22:00 Consult to Dialysis [CONS] ONCE Sucralfate [Carafate] 1 gm PO QIDAC Vancomycin [Vancocin (wt based)] 1,000 mg D5% in Water [Dextrose 5%] 250 ml IVPB RPHPROT 01/26/17 23:00 Ipratropium/Albuterol Neb [Duoneb] 3 ml IH QIDR 01/26/17 Breakfast Diabetic Diet Diet Modifications: 01/27/17 03:45 Troponin I Q6H Comment: Specimen: Send someone from the department to collect 01/27/17 04:00 Activated Partial Thrombo Time [COAG] AM 0400 Comment: Specimen: Send someone from the department to collect B-Type Natriuretic Peptide AM 0400 Comment: Specimen: Send someone from the department to collect C-Reactive Protein AM 0400 Comment: Specimen: Send someone from the department to collect Complete Blood Count [HEME] AM 0400 Comment: Specimen: Send someone from the department to collect Comprehensive Metabolic Panel AM 0400 Comment: Specimen: Send someone from the department to collect Erythrocyte Sedimentation Rate [HEME] AM 0400 Comment: Specimen: Send someone from the department to collect Lipid Panel AM 0400 Comment: Specimen: Send someone from the department to collect Magnesium AM 0400 Comment: Specimen: Send someone from the department to collect Phosphorous AM 0400 Comment: Specimen: Send someone from the department to collect Prothrombin Time INR [COAG] AM 0400 Comment: Specimen: Send someone from the department to collect Respiratory Infection Panel [MOLMIC] AM 0400 Specimen: Send someone from the department to collect 01/27/17 06:00 Cefepime HCl [Maxipime] 2,000 mg D5% in Water (Mini-Bag+) [Dextrose 5% ( Minibag+) 100 ML] 100 ml IVPB Q12HR 01/27/17 07:30 Insulin LISPRO [HumaLOG] See Protocol SQ TIDAC 01/27/17 08:00 Calcium Acetate [Phos-LO] 667 mg PO TIDWM 01/27/17 09:00 Carvedilol [Coreg] 25 mg PO BID Docusate [Colace] 100 mg PO BID Famotidine [Pepcid] 10 mg PO BID Famotidine [Pepcid] 20 mg PO BID Furosemide [Lasix] 40 mg PO DAILY Gabapentin [Neurontin] 100 mg PO TID Levofloxacin 750 MG/150 ML [Levaquin 750mg/150 mL] 750 mg in 150 ml IVPB DAILY PredniSONE 40 mg PO DAILY 01/27/17 09:45 Troponin I Q6H Comment: Specimen: Send someone from the department to collect 01/27/17 21:00 Atorvastatin [Lipitor] 40 mg PO HS Insulin DETEMIR [Levemir] 10 unit SQ HS Insulin LISPRO [HumaLOG] See Protocol SQ HS 01/27/17 Breakfast Renal Diet Diet Modifications: Vital Signs Temp Pulse Resp BP Pulse Ox 01/26/17 21:23 98.2 F 107 18 167/99 99 01/26/17 19:00 18 144/82 01/26/17 18:31 112 16 155/98 97 01/26/17 15:40 95 01/26/17 15:16 97.5 F L 70 16 145/82 94 Laboratory Results 01/26/17 01/26/17 01/26/17 Range/Units 15:33 15:33 15:33 WBC 8.1 D (4.3-11.1) K/mcL RBC 3.36 L (4.19-5.50) M/mcL Hgb 10.7 L D (12.9-16.9) g/dL Hct 33.3 L (37.5-50.1) % MCV 99.1 (83.0-100.0) fL MCH 31.8 (28.0-33.3) pg MCHC 32.1 (31.6-35.5) g/dL RDW 19.0 H (11.5-14.5) % Plt Count 349 D (140-400) K/mcL MPV 9.4 (9.4-12.4) fL Immature Gran % 3.5 (0-4) % Seg Neutrophils % 83.6 % Lymphocytes % 6.2 % Monocytes % 6.3 % Eosinophils % 0.0 % Basophils % 0.4 % Neutrophils # 6.8 (1.6-8.9) K/mcL Lymphocytes # 0.5 L (0.6-4.6) K/mcL Monocytes # 0.5 (0.0-1.3) K/mcL Eosinophils # 0.0 (0.0-0.6) K/mcL Basophils # 0.0 (0.0-0.2) K/mcL Nucleated RBCs/100 WBC 0.7 H (0) /100 WBC VBG pH (7.32-7.42) pH Units VBG pCO2 (41-51) mmHg VBG pO2 (25-40) mmHg VBG HCO3 (21-27) mEq/L Sodium 139 (136-145) mEq/L Potassium 2.9 L (3.5-4.5) mEq/L Chloride 97 L (98-109) mEq/L Carbon Dioxide 29 (19-29) mEq/L BUN 20 (8-26) mg/dL Creatinine 1.62 H (0.72-1.25) mg/dL Est GFR ( Amer) 53 L (> 60) Est GFR (Non-Af Amer) 44 L (> 60) BUN/Creatinine Ratio 12 (6-26) Glucose 77 (70-99) mg/dL Calculated Osmolality 289 (280-300) Lactic Acid (0.5-2.2) mmol/L Calcium 8.7 (8.6-10.8) mg/dL Magnesium 2.0 (1.6-2.6) mg/dL Troponin I 0.14 H* (0-0.03) ng/mL B-Natriuretic Peptide (0-100) pg/mL 01/26/17 01/26/17 01/26/17 Range/Units 15:33 15:33 16:26 WBC (4.3-11.1) K/mcL RBC (4.19-5.50) M/mcL Hgb (12.9-16.9) g/dL Hct (37.5-50.1) % MCV (83.0-100.0) fL MCH (28.0-33.3) pg MCHC (31.6-35.5) g/dL RDW (11.5-14.5) % Plt Count (140-400) K/mcL MPV (9.4-12.4) fL Immature Gran % (0-4) % Seg Neutrophils % % Lymphocytes % % Monocytes % % Eosinophils % % Basophils % % Neutrophils # (1.6-8.9) K/mcL Lymphocytes # (0.6-4.6) K/mcL Monocytes # (0.0-1.3) K/mcL Eosinophils # (0.0-0.6) K/mcL Basophils # (0.0-0.2) K/mcL Nucleated RBCs/100 WBC (0) /100 WBC VBG pH 7.41 (7.32-7.42) pH Units VBG pCO2 57 H (41-51) mmHg VBG pO2 22 L (25-40) mmHg VBG HCO3 36.1 H (21-27) mEq/L Sodium (136-145) mEq/L Potassium (3.5-4.5) mEq/L Chloride (98-109) mEq/L Carbon Dioxide (19-29) mEq/L BUN (8-26) mg/dL Creatinine (0.72-1.25) mg/dL Est GFR ( Amer) (> 60) Est GFR (Non-Af Amer) (> 60) BUN/Creatinine Ratio (6-26) Glucose (70-99) mg/dL Calculated Osmolality (280-300) Lactic Acid 1.4 (0.5-2.2) mmol/L Calcium (8.6-10.8) mg/dL Magnesium (1.6-2.6) mg/dL Troponin I (0-0.03) ng/mL B-Natriuretic Peptide 4784 H (0-100) pg/mL Assessments/Treatments 12 lead ECG assessment Start: 01/26/17 15: 15 Freq: Status: Active Document 01/26/17 15:37 NNN (Rec: 01/26/17 15:39 NNN [id number]) EKG Time EKG Completed 15:28 EKG performed by Kirsty JOHNSON EKG shown to and signed by Dr. Garcia Cardiac monitoring Start: 01/26/17 15: 15 Freq: Status: Active Document 01/26/17 15:37 NNN (Rec: 01/26/17 15:39 NNN [id number]) Cardiac Monitoring Heart Rate 92 Monitoring Method Telemetry Rhythm Sinus Rhythm Monitor Number [id number] Strip placed in Chart No Monitor History Reviewed Yes Memory Cleared Yes Critical Value Reporting Start: 01/26/17 16: 08 Freq: Status: Active Document 01/26/17 16:08 NNN (Rec: 01/26/17 16:08 NNN [id number]) Critical Values Reporting Test(s) and Results trop 0.14 Time Results Received 16:06 Lab Results Repeated Back Yes Provider Notified Yes Time Provider Contacted 16:[address] Garcia Time Provider Responded 16:06 Number of Attempts to Reach Provider 1 New Orders Received No ED Discharge Assessment Start: 01/26/17 15: 15 Freq: Status: Active Document 01/26/17 19:00 NNN (Rec: 01/26/17 19:02 NNN [id number]) ED Discharge Assessment ED Discharge Disposition Admitted ED Condition on Discharge Fair Med Rec/Patient Pharmacy Completed? Yes: med rec tech Admitted to 2A Bed assigned 2A33 Transported by manufacturing process technician Transported with oxygen Report given to Nurse Care transferred to (name/credentials) Audrey TEE Pain Scale 0 Pain Scale Used Standard (1-10) Blood Pressure 144/82 Heart rate 111 Respiratory Rate 18 Oxygen Delivery Nasal Cannula Oxygen Saturation 95 Critical Care Minutes 0 ED Pain Assessment Start: 01/26/17 15: 15 Freq: Status: Complete Document 01/26/17 15:37 NNN (Rec: 01/26/17 15:39 NNN [id number]) Pain Assessment Pain Present Reports No Pain ED Shortness of Breath Assessment Start: 01/26/17 15: 15 Freq: Status: Complete Document 01/26/17 15:37 NNN (Rec: 01/26/17 15:39 NNN [id number]) Shortness of Breath Sepsis Infection Criteria Present none Sepsis SIRS Criteria RR > 20 rpm Sepsis Screen No Definite Risk Sepsis Action Taken no action required Symptoms/Complaint Shortness of Breath Cough Onset 2 days Duration Constant Severity Mild Context Unknown Known History COPD Improves With Nothing Worsens With Nothing Associated Symptoms Cough Sputum Production Treatment Prior to Arrival None Respiratory Depth Normal Effort Normal for Patient Spontaneous Non-Labored Cough Description Involuntary Productive Frequency Intermittent Level Of Consciousness Awake Alert Appropriate Follows Commands Patient Orientation Person Place Time Patient Behavior Appropriate Cooperative Ability to Follow Directions Excellent Impaired Cognition No Skin Temperature Warm Skin Moisture Dry Skin Turgor Normal Initial Patient Assessment Start: 01/26/17 20: 51 Freq: .ONCE Status: Active Document 01/26/17 21:09 [id number] (Rec: 01/26/17 21:14 [id number]) General Questions Date of Arrival on Unit 01/26/17 Time of Arrival on Unit 19:40 Admitted From Emergency Dept Chief Complaint SOB Onset of Chief Complaint 01/25/17 History Provided By Patient Orientation To Call Light Bed Phone TV Bathroom Smoking Policy Visiting Hours Procedures ID Bracelet On Emergency Contact Name Radha Guardado Relationship to Patient Emergency Contact Bands applied ID band Patient Health Portal Patient was provided information on Yes accessing patient portal Patient Requests Portal Enrollment No Reason No Portal Enrollment Patient Declines Malnutrition Screening Tool (MST) Have You Recently Lost Weight Without Yes Trying If Yes, How Much Weight Have You Lost 2-13 Pounds Have You Been Eating Poorly Because of a Yes Decreased Appetite MST Score 2 Advance Directives Advance Directives No Advance Directives Information Provided No Reason Not Provided Patient declined Patient Rights Copy of Rights Given and Verbalizes Yes Understanding Tobacco Free [place]: Copy of S Yes Statement Given and Patient Verbalizes Understanding Communication Ability Primary Language Uzbek Preferred Language Uzbek Drapery Supervisor Required No Ability to Follow Directions Good Able to Read Yes Able to Write Yes Communication Tools None Caregiver Communication Skills No Impairment Impairment Learning Preferences Demonstration Discussion Hearing Ability Normal Visual Assistive Devices Glasses Pain Assessment Do You Have Any Ongoing (Chronic) Pain Yes Problems What treatment or medications are you oxycodone 30 receiving for pain management Educated on Pain Scale Yes Past Medical History Medical history arthritis cancer CHF coronary artery disease diabetes dialysis GERD hyperlipidemia hypertension myocardial infarction peripheral artery disease renal disease Additional surgical history nephrectomy Psychiatric history anxiety depression Smoking Status Former smoker Smokeless Tobacco Status No Alcohol use none Drug use none Occupational status retired Current living situation With Family Activity level Independent ambulation Recent Out of Country Travel Within the No Last 8 Weeks Exposure or Possible Exposure to Illness No During Travel Psychosocial Over Age 75 and Lives Alone or Over Age No 80 Developmentally Disabled or History of No Mental Health Problems Responsible for Care of Others Yes Financial Concerns Yes Suspected Abuse or Neglect No Functional Assessment Employment Status Retired Community Services Used Prior to Oxygen Therapy Admission Eating (Feeding) Ability Independent Bathing Ability Independent Upper Body Dressing Ability Independent Lower Body Dressing Ability Independent Ambulation Ability Independent Toileting Ability Independent Bladder Continent Bowel Continent Measure weight Start: 01/26/17 20: 51 Freq: Status: Active Document 01/26/17 21:23 BAW (Rec: 01/26/17 21:26 [facility] [id number]) Height and Weight Height 1.7 m Weight 63.503 kg Weight Measurement Method Built in [facility] Body Mass Index (BMI) 21.86 BMI Classification Normal Med Rec Tech Start: 01/26/17 19: 31 Freq: Status: Active Document 01/26/17 19:31 MRB (Rec: 01/26/17 19:31 [id number] [id number]) Pharmacy Med Rec Tech Home Medicatons Reconciled? Yes Was this to catch up from previous day No Does patient take 10 or more medications Yes ? Does patient request medication Yes education Do home meds include Coumadin, Xarelto, No Pradaxa, Eliquis Added Patient Preferred Pharmacy Yes Verified Allergies Yes Would Patient Like to use [facility] No Patient Pharmacy Patient Belongings Start: 01/26/17 20: 51 Freq: .ONCE Status: Active Document 01/26/17 21:09 [id number] (Rec: 01/26/17 21:14 [id number]) Patient Belongings Belongings With Patient on Admission Yes At Bedside Patient Belongings Baseball Cap Cell Phone Pants Shirt Shoes Patient Rounding Start: 01/26/17 20: 51 Freq: Q1H Status: Active Document 01/26/17 21:23 BAW (Rec: 01/26/17 21:26 BAW [id number]) Hourly Rounding Hourly Rounding Checked for Patient Positioning Patient Personal Items Placed Within Reach Hourly Rounding Completed Yes Patient Awake Is family present? No Equipment in Use Specialty Bed Safety Call Light Within Reach Bed Position Low Fall Precautions Phone Within Reach Side Rails Up X1 Are the Floors Free From Trip Hazards? Yes Is the Room Free From Clutter? 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 No Date of Insertion 01/26/17 Time of Insertion 15:39 Reason for IV Insertion Provide Access for IV Medication(s) IV Catheter Type Peripheral IV Gauge (gauge) 20 Site Observation Patent Dressing Applied Transparent Dressing Patient Tolerance Tolerated Well Supplemental oxygen titration Start: 01/26/17 15: 35 Freq: .ONCE Status: Complete Document 01/26/17 15:40 NNN (Rec: 01/26/17 15:41 NNN [id number]) Oxygen Adminstration Oxygen Saturation 95 Oxygen Delivery Method Nasal Cannula Flow Rate 3 Thrombosis Risk Factor Assessment Start: 01/26/17 20: 51 Freq: .ONCE Status: Active Document 01/26/17 21:09 [id number] (Rec: 01/26/17 21:14 [id number] [facility] [id number] Thrombosis Risk Factor Assessment Each Factor Represents 1 point Age 41 - 59 years Serious lung disease including pneumonia (< 1 month) Other Risk Factors No Total Risk Factor Score 2 Risk Level Moderate Risk Triage Start: 01/26/17 15: 15 Freq: Status: Complete Document 01/26/17 15:16 JBF (Rec: 01/26/17 15:18 JBF [id number]) Triage Chief Complaint triage ED Shortness of Breath/Dyspnea Patient Stated Complaint SOB/holding fluid HERMAN 3 Onset (ago) hour(s) Description of Symptoms started feeling bad last night , went to diaylsis and is still feeling bad. General Appearance alert Work Related Injury? No Mode of arrival wheelchair Source patient Limitations no limitations Ebola Risk: Travel/Contact With Anyone No From Affected Area/s Has Patient Experienced Ebola Symptoms No Temperature (97.6 F-99.6 F) 97.5 F L Temperature Source Oral Pulse Rate 70 Respiratory Rate 16 Blood Pressure 145/82 O2 Sat by Pulse Oximetry 94 Oxygen Delivery Nasal Cannula Height 1.7 m Weight 65.317 kg Weight Measurement Method Stated by Patient Pain Scale 4 Pain Scale Used Standard (1-10) Medical history arthritis cancer CHF coronary artery disease diabetes dialysis GERD hyperlipidemia hypertension myocardial infarction peripheral artery disease renal disease Male surgical history other Additional surgical history PMH nephrectomy Psychiatric history anxiety depression Smoking Status Former smoker Smokeless Tobacco Status No Alcohol Use none Drug Use none Patient resides with/at Spouse Safety Concerns Feels Safe At This Time Do you currently feel hopless, have No thoughts of self harm, or thoughts of harming others History of fall in last 14 days? No Coma Scale Eye Opening Spontaneous Coma Scale Motor Response Obeys Commands Coma Scale Verbal Response Oriented Coma Scale Total 15 Brother Adopted No Family Member Ethnicity Non- Family Member Living Status Hx Family Cardiac Disorders Yes Hx Family Respiratory Disorders Yes: dad black lung Hx Family Cancer Yes: mother Hx Family GI Disease No Hx Family Endocrine Disorder Yes: sister Hx Family Neuromuscular Dysfunction No Hx Family Neurologic Problems No Hx Family HEENT Problems No Hx Family Autoimmune Disease Problems No Father Adopted No Family Member Ethnicity Non- Family Member Living Status Hx Family Cardiac Disorders No Hx Family Respiratory Disorders Yes Hx Family Cancer No Hx Family GI Disease No Hx Family Endocrine Disorder No Hx Family Neuromuscular Dysfunction No Hx Family Neurologic Problems No Hx Family HEENT Problems No Hx Family Autoimmune Disease Problems No Mother Adopted No Family Member Living Status Hx Family Cardiac Disorders No Hx Family Respiratory Disorders No Hx Family Cancer Yes Hx Family GI Disease No Hx Family Endocrine Disorder No Hx Family Neuromuscular Dysfunction No Hx Family Neurologic Problems No Hx Family HEENT Problems No Hx Family Autoimmune Disease Problems No Vital Signs Assessment Start: 01/26/17 15: 35 Freq: PROTOCOL Status: Active Document 01/26/17 18:31 NNN (Rec: 01/26/17 18:32 NNN [id number]) ED Vital Signs Pain Reported No Pain Reported Pain Scale 0 Blood Pressure 155/98 Pulse Rate 112 Respiratory Rate 16 Pulse Oximetry 97 Oxygen Delivery Nasal Cannula Oxygen Flow Rate (LPM) 3 Vital Signs Assessment Start: 01/26/17 20: 51 Freq: Q4H Status: Active Document 01/26/17 21:23 BAW (Rec: 01/26/17 21:26 BAW [id number]) Vital Signs with MEWS Temperature (97.6 F-99.6 F) 98.2 F Temperature Source Oral Pulse Rate 107 Respiratory Rate 18 Pulse Oximetry 99 Oxygen Delivery Nasal Cannula Blood Pressure 167/99 Blood Pressure Location Left Arm Source Automatic Cuff Position Supine Neuro Status *recalled from last Alert documentation MEWS Score 2 Discharge Information ED Provider: Yeyo Garcia Status: Departed Time Seen by Provider: Condition: Triaged At: Emergency Discharge Date/Time: 01/26/17 19:50 Emergency Discharge Disposition: Admitted As Inpatient Clinical Impression Emergency Discharge Comment: Admit Intervention Last Done ED Shortness of Breath Assessment 01/26/17 15:37 Query Result Sepsis Infection Criteria Present none Sepsis SIRS Criteria RR > 20 rpm Sepsis Screen No Definite Risk Sepsis Action Taken no action required Shortness Of Breath Symptoms/Complaint Shortness of Breath Cough Shortness Of Breath Onset 2 days Shortness Of Breath Duration Constant Shortness Of Breath Severity Mild Shortness Of Breath Context Unknown Shortness Of Breath Known History COPD Shortness Of Breath Improves With Nothing Shortness Of Breath Worsens With Nothing Shortness Of Breath Associated Symptoms Cough Sputum Production Shortness Of Breath Treatments Prior to None Arrival Respiratory Depth Normal Respiratory Effort Normal for Patient Spontaneous Non-Labored Cough Description Involuntary Productive Cough Frequency Intermittent Level Of Consciousness Awake Alert Appropriate Follows Commands Patient Orientation Person Place Time Patient Behavior Appropriate Cooperative Ability to Follow Directions Excellent Impaired Cognition No Skin Temperature Warm Skin Moisture Dry Skin Turgor Normal ED Discharge Assessment 01/26/17 19:00 Query Result ED Discharge Disposition Admitted ED Condition on Discharge Fair Med Rec/Patient Phamracy completed? Yes: med rec tech ED Admit to 2A Bed assigned 2A33 Transported by manufacturing process technician Transported with oxygen Report given to Nurse Care transferred to Audrey RN Severity scale (1-10) 0 Pain Scale Used Standard (1-10) Blood Pressure 144/82 Heart rate 111 Respiratory Rate 18 Oxygen Delivery Nasal Cannula Pulse Oximetry Reading 95 Critical Care Minutes 0 Observation Discharge Date/Time: Observation Discharge Disposition: Observation Discharge Comment: Instructions: Stand-Alone Forms: ED Satisfaction Letter Prescriptions: Visit Report - Forms: - Referrals: NO,PCP (Primary Care Provider) Radiology Results Chest X-Ray 01/26/17 15:35 IMPRESSION: 1. Unchanged ill-defined opacity in the right suprahilar region consistent with previously seen malignancy. 2. Interstitial pulmonary edema, suspected bilateral perihilar alveolar edema, trace pericardial effusions, and mild cardiomegaly, suggesting congestive heart failure. D/ / Sabas Mg MD / Sabas Mg MD Interpreting Provider: Sabas Mg MD Chest CT 01/26/17 15:40 IMPRESSION: New centrilobular nodular opacities posteriorly in the lingula, concerning for an infectious process. Decreased size of right perihilar mass. Adjacent airspace opacities in the right upper lobe are also decreased from the prior exam, and may represent resolving postobstructive pneumonia. Mild right perihilar ground-glass opacities, most prominently along the lung bases. They are nonspecific and could be related to postradiation pneumonitis, asymmetric pulmonary edema, or atypical infection. Small right pleural effusion, new from prior exam. Mild mediastinal lymphadenopathy, slightly decreased from prior exam. Moderate to severe emphysema. Coronary atherosclerosis. D/ / 01/26/2017 17:56:57 Baldo Kearney MD / rupal Interpreting Provider: Baldo Kaerney MD
[2017-01-26] MEDS ORDERED: Vancomycin 1,000 MG in D5% in Water 250 ML IVPB SCH (22:00)
[2017-01-26] MEDS: Ipratropium/Albuterol Neb 3 ML IH SCH (22:49)
[2017-01-26 23:17] LABS: Hemoglobin A1C 5.5 %
[2017-01-26] MEDS: *HR* OxyCODONE Immed Rel 15 MG TABLET PO PRN (23:38)
[2017-01-26] MEDS: Sucralfate 1 GM TABLET PO SCH (23:39)
--- NOTE | 2017-01-27 00:14 | Emergency Department Note ---
Disposition Clinical Impression: Wheezing, Pneumonia Disposition: Admitted As Inpatient General Adult HPI - General Chief complaint: ED Shortness of Breath/Dyspnea Stated complaint: SOB Source: patient Limitations: no limitations Nursing Notes Reviewed: Yes Vital Signs Reviewed: Yes - History of Present Illness HPI Narrative: 61-year-old male who was diagnosed with lung cancer. Was sent from the oncology center with concern for dyspnea, possible pneumonia. He is a dialysis patient. He was dialyzed today. Apparently he said pneumonia, pneumonia has been treated on an outpatient basis but today he became more dyspneic. There is question will hypoxia. On arrival he was mildly tachycardic, hypoxic. He had minimal amount of bronchospasm on arrival. He denies small pieces, fever. He is currently being treated for lung cancer. Pain Scale: 0 - Related Data Home Medications Medication Instructions Recorded Confirmed Albuterol Sulfate [Albuterol 2 puff IH Q4HR 07/29/15 01/26/17 Inhaler] Budesonide/Formoterol 160/4.5 2 puff IH BIDR 07/29/15 01/26/17 [Symbicort] Gabapentin [Neurontin] 100 mg PO TID 07/29/15 01/26/17 Glimepiride [Amaryl] 2 mg PO DAILY 07/29/15 01/26/17 Furosemide [Lasix] 40 mg PO DAILY 08/31/16 01/26/17 Oxygen 3 l .ROUTE AD 08/31/16 01/26/17 Multivitamin [Multivitamins] 1 cap PO DAILY 11/03/16 01/26/17 Tiotropium [Spiriva] 18 mcg IH DAILY 01/26/17 01/26/17 Previous Rx's Medication Instructions Recorded Atorvastatin [Lipitor] 40 mg PO HS #30 tablet 07/03/15 Famotidine [Pepcid] 10 mg PO BID #60 tablet 07/03/15 Calcium Acetate [Phos-LO] 667 mg PO TIDWM #90 capsule 10/02/15 Carvedilol [Coreg] 25 mg PO BID #60 tablet 10/02/15 Albuterol Neb [Proventil Neb] 2.5 mg IH Q4HR PRN #30 vial.neb 09/03/16 Magic Mouthwash [Magic Mouthwash 10 ml PO QID PRN #240 ml 12/18/16 BLM] Chlorpromazine HCl 25 mg PO Q8HR PRN #14 tablet 01/18/17 Oxycodone HCl [Roxicodone 30 MG 30 mg PO Q6HR PRN #90 tab 01/22/17 Immed Release] Levofloxacin [Levaquin] 250 mg PO DAILY #10 tablet 01/23/17 Sucralfate [Carafate] 1 gm PO QIDAC #120 tablet 01/24/17 Allergies Allergy/AdvReac Type Severity Reaction Status Date / Time codeine Allergy Itching Verified 01/20/17 23:57 pollen extracts Allergy Itching Verified 01/20/17 23:57 shellfish derived AdvReac Nausea Verified 01/20/17 23:57 IVP DYE Allergy Intermediate Vomiting Uncoded 01/20/17 23:57 All systems ED: reviewed and negative except as stated. Past Medical History - Past Medical History Medical history: Reports: arthritis, cancer, CHF, coronary artery disease, diabetes, dialysis, GERD, hyperlipidemia, hypertension, myocardial infarction, peripheral artery disease, renal disease Surgical history: Reports: angioplasty/stent, carotid endarterectomy, coronary bypass (CABG), orthopedic, other, other Psychiatric history: Reports: anxiety, depression - Social History Smoking Status: Former smoker Smokeless Tobacco Status: No Alcohol use: Reports: none Drug use: Reports: none Physical Exam Dyspnea, tachypnea, rhonchi bilaterally with minimal wheezing apically - General Limitations: no limitations General appearance: alert - Eye Eye exam: Present: normal appearance - ENT ENT exam: normal exam, normal oropharynx - Neck Neck exam: Present: normal inspection, full ROM - Chest Chest inspection: Present: normal inspection - Respiratory Respiratory exam: Present: wheezes, accessory muscle use, other - Cardiovascular Cardiovascular exam: Present: tachycardia - Abdominal Exam Abdominal exam: Present: soft, Non-Tender - Extremities Exam Extremities exam: Present: normal inspection, full ROM - Expanded Lower Extremity Exam Hip/Pelvis exam: Present: normal inspection, full ROM Upper leg exam: Present: normal inspection, full ROM Knee exam: Present: normal inspection, full ROM Lower leg exam: Present: normal inspection, full ROM Ankle exam: Present: normal inspection, full ROM Foot/toe exam: Present: normal inspection, full ROM Neurovascular/Tendon exam: Present: normal capillary refill Gait: observed and normal - Back Exam Back exam: Present: normal inspection, full ROM - Neurological Exam Neurological exam: Present: alert, oriented X3, CN II-XII intact - Psychiatric Psychiatric exam: Present: normal affect, normal mood - Skin Skin exam: Present: warm, dry Course Vital Signs Temperature 97.5 F L 01/26/17 15:16 Pulse Rate 70 01/26/17 15:16 Respiratory Rate 16 01/26/17 15:16 Blood Pressure 145/82 01/26/17 15:16 O2 Sat by Pulse Oximetry 94 01/26/17 15:16 Temperature 98.2 F 01/26/17 21:23 Pulse Rate 107 01/26/17 21:23 Respiratory Rate 20 01/26/17 22:49 Blood Pressure 167/99 01/26/17 21:23 O2 Sat by Pulse Oximetry 96 01/26/17 22:49 Oxygen Delivery Oxygen Delivery Nasal Cannula Medical Decision Making - MDM Narrative Medical decision making narrative: Previously found pneumonia has improved. This is thought to be postobstructive in origin. There is areas of new possible infectious etiology. Given his tachycardia as well as tachypnea I did obtain blood cultures. I do not administer a 30 mL per kilo fluid bolus as the patient has underlying renal dysfunction, end-stage renal disease. He was given bronchodilators, steroids, broad-spectrum antibiotic therapy with vancomycin and cefepime covered possible Hcap infection. Pending cultures obtained. Lactate was actually normal. Respiratory status improved during departmental course. We will admit to the hospitalist team for treatment of pneumonia. - Medical Records Medical records reviewed: Yes I reviewed the patient's medical records. - Lab Data Lab results reviewed: Yes I reviewed the patient's lab results. Result diagrams: 01/26/17 15:33 01/26/17 15:33 Lab Results 01/26/17 01/26/17 01/26/17 Range/Units 15:33 15:33 15:33 WBC 8.1 D (4.3-11.1) K/mcL RBC 3.36 L (4.19-5.50) M/mcL Hgb 10.7 L D (12.9-16.9) g/dL Hct 33.3 L (37.5-50.1) % MCV 99.1 (83.0-100.0) fL MCH 31.8 (28.0-33.3) pg MCHC 32.1 (31.6-35.5) g/dL RDW 19.0 H (11.5-14.5) % Plt Count 349 D (140-400) K/mcL MPV 9.4 (9.4-12.4) fL Immature Gran % 3.5 (0-4) % Seg Neutrophils % 83.6 % Lymphocytes % 6.2 % Monocytes % 6.3 % Eosinophils % 0.0 % Basophils % 0.4 % Neutrophils # 6.8 (1.6-8.9) K/mcL Lymphocytes # 0.5 L (0.6-4.6) K/mcL Monocytes # 0.5 (0.0-1.3) K/mcL Eosinophils # 0.0 (0.0-0.6) K/mcL Basophils # 0.0 (0.0-0.2) K/mcL Nucleated RBCs/100 WBC 0.7 H (0) /100 WBC VBG pH (7.32-7.42) pH Units VBG pCO2 (41-51) mmHg VBG pO2 (25-40) mmHg VBG HCO3 (21-27) mEq/L Sodium 139 (136-145) mEq/L Potassium 2.9 L (3.5-4.5) mEq/L Chloride 97 L (98-109) mEq/L Carbon Dioxide 29 (19-29) mEq/L BUN 20 (8-26) mg/dL Creatinine 1.62 H (0.72-1.25) mg/dL Est GFR ( Amer) 53 L (> 60) Est GFR (Non-Af Amer) 44 L (> 60) BUN/Creatinine Ratio 12 (6-26) Glucose 77 (70-99) mg/dL Calculated Osmolality 289 (280-300) Lactic Acid (0.5-2.2) mmol/L Calcium 8.7 (8.6-10.8) mg/dL Magnesium 2.0 (1.6-2.6) mg/dL Troponin I 0.14 H* (0-0.03) ng/mL B-Natriuretic Peptide (0-100) pg/mL 01/26/17 01/26/17 01/26/17 Range/Units 15:33 15:33 16:26 WBC (4.3-11.1) K/mcL RBC (4.19-5.50) M/mcL Hgb (12.9-16.9) g/dL Hct (37.5-50.1) % MCV (83.0-100.0) fL MCH (28.0-33.3) pg MCHC (31.6-35.5) g/dL RDW (11.5-14.5) % Plt Count (140-400) K/mcL MPV (9.4-12.4) fL Immature Gran % (0-4) % Seg Neutrophils % % Lymphocytes % % Monocytes % % Eosinophils % % Basophils % % Neutrophils # (1.6-8.9) K/mcL Lymphocytes # (0.6-4.6) K/mcL Monocytes # (0.0-1.3) K/mcL Eosinophils # (0.0-0.6) K/mcL Basophils # (0.0-0.2) K/mcL Nucleated RBCs/100 WBC (0) /100 WBC VBG pH 7.41 (7.32-7.42) pH Units VBG pCO2 57 H (41-51) mmHg VBG pO2 22 L (25-40) mmHg VBG HCO3 36.1 H (21-27) mEq/L Sodium (136-145) mEq/L Potassium (3.5-4.5) mEq/L Chloride (98-109) mEq/L Carbon Dioxide (19-29) mEq/L BUN (8-26) mg/dL Creatinine (0.72-1.25) mg/dL Est GFR ( Amer) (> 60) Est GFR (Non-Af Amer) (> 60) BUN/Creatinine Ratio (6-26) Glucose (70-99) mg/dL Calculated Osmolality (280-300) Lactic Acid 1.4 (0.5-2.2) mmol/L Calcium (8.6-10.8) mg/dL Magnesium (1.6-2.6) mg/dL Troponin I (0-0.03) ng/mL B-Natriuretic Peptide 4784 H (0-100) pg/mL - Radiology Data Radiology results reviewed: Yes I reviewed the patient's radiology results. Critical Care Time Total Critical Care Time: 31 Attestation: A total of 31 minutes was performed actively resuscitating this gentleman with respiratory failure. He required multiple treatments and was found of pneumonia. He was admitted to the hospitalist team. Critical care time was excluding billable procedures.
[2017-01-27] MEDS: Ipratropium/Albuterol Neb 3 ML IH SCH ×4 (04:44→22:51)
[2017-01-27] MEDS ORDERED: Cefepime HCl 2,000 MG in D5% in Water (Mini-Bag+) 100 ML IVPB SCH (06:00)
[2017-01-27 06:20] LABS: Basophils % 0.2 %; Hematocrit 30.4 % (37.5-50.1); Hemoglobin 9.6 g/dL (12.9-16.9); Immature Granulocytes % 2.4 % (0-4); Lymphocytes # 0.4 K/mcL (0.6-4.6); Lymphocytes % 7.5 %; Mean Corpuscular HGB Conc 31.6 g/dL (31.6-35.5); Mean Corpuscular Hemoglobin 31.5 pg (28.0-33.3); Mean Corpuscular Volume 99.7 fL (83.0-100.0); Mean Platelet Volume 10.3 fL (9.4-12.4); Monocytes # 0.3 K/mcL (0.0-1.3); Monocytes % 4.6 %; Platelet Count 307 K/mcL (140-400); Red Blood Count 3.05 M/mcL (4.19-5.50); Segmented Neutrophils % 85.3 %
[2017-01-27 06:27] LABS: INR 1.2; Prothrombin Time 13.2 Seconds (9.4-12.1)
[2017-01-27 06:30] LABS: Activated Partial Thrombo Time 27.2 Seconds (26.0-36.0)
[2017-01-27] MEDS ORDERED: Vancomycin 1,250 MG in D5% in Water 250 ML IVPB SCH (06:30)
[2017-01-27 06:42] LABS: Albumin 2.5 g/dL (3.5-5.0); Albumin/Globulin Ratio 0.6 (1.1-2.2); Bilirubin,Total 0.5 mg/dL (0.2-1.2); Calcium 8.4 mg/dL (8.6-10.8); Chol/HDL Ratio 4.5 (0-4.9); Magnesium 1.9 mg/dL (1.6-2.6); Phosphorous 4.3 mg/dL (2.3-4.7); Total Protein 6.5 g/dL (6.0-8.3)
[2017-01-27 06:43] LABS: Potassium 4.8 mEq/L (3.5-4.5)
[2017-01-27] MEDS: predniSONE 20 MG TABLET PO SCH (08:53)
[2017-01-27] MEDS: Calcium Acetate 667 MG CAPSULE PO SCH ×3 (08:53→17:16)
[2017-01-27] MEDS: Furosemide 40 MG TABLET PO SCH (08:53)
[2017-01-27] MEDS: Sucralfate 1 GM TABLET PO SCH ×4 (08:53→20:39)
[2017-01-27] MEDS: Gabapentin 100 MG CAPSULE PO SCH ×3 (08:53→20:39)
[2017-01-27] MEDS: Famotidine 20 MG TABLET PO SCH ×2 (08:53→20:39)
[2017-01-27] MEDS: *HR* OxyCODONE Immed Rel 15 MG TABLET PO PRN ×3 (08:58→20:40)
[2017-01-27] MEDS: Insulin LISPRO 300 UNITS/3 ML VIAL SQ SCH ×3 (08:59→17:18)
[2017-01-27] MEDS ORDERED: Levofloxacin 750 MG/150 ML 750 MG/150 ML BAG IVPB SCH (09:00)
[2017-01-27] MEDS ORDERED: Famotidine 20 MG TABLET PO SCH (09:00)
[2017-01-27 10:18] LABS: Hepatitis B Surface Antigen Nonreactive (Nonreactive)
[2017-01-27 13:31] LABS: Adenovirus Not Detected (Not Detect); Bordetella Pertussis Not Detected (Not Detect); Chlamydophila pneumoniae Not Detected (Not Detect); Coronavirus 229E ***DETECTED*** (Not Detect); Coronavirus HKU1 Not Detected (Not Detect); Coronavirus NL63 Not Detected (Not Detect); Coronavirus OC43 Not Detected (Not Detect); Human Metapneumovirus ***DETECTED*** (Not Detect); Human Rhinovirus/Enterovirus Not Detected (Not Detect); Influenza A Subtype 2009 H1 Not Detected (Not Detect); Influenza A Untypeable Not Detected (Not Detect); Influenza B Not Detected (Not Detect); Mycoplasma pneumoniae Not Detected (Not Detect); Parainfluenza Virus 1 Not Detected (Not Detect); Parainfluenza Virus 2 Not Detected (Not Detect); Parainfluenza Virus 3 Not Detected (Not Detect); Parainfluenza Virus 4 Not Detected (Not Detect); Respiratory Syncytial Virus Not Detected (Not Detect)
[2017-01-27 14:30] LABS: Amphetamine Screen,Urine Negative ng/mL (Cutoff=1000); Barbiturate Screen,Urine Negative ng/mL (Cutoff=200); Benzodiazepines Screen,Urine Negative ng/mL (Cutoff=200); Cannabinoid Screen,Urine Negative ng/mL (Cutoff = 50); Cocaine Screen,Urine Negative ng/mL (Cutoff= 300); Opiate Screen,Urine Positive ng/mL (Cutoff=300); Phencyclidine Screen,Urine Negative ng/mL (Cutoff=25)
[2017-01-27] MEDS: Oseltamivir Phosphate 30 MG CAPSULE PO SCH ×2 (15:10→20:39)
--- NOTE | 2017-01-27 15:35 | Internal Med Progress Note ---
Date of Encounter: 01/27/17 Time of Encounter: 15:33 - Assessment and plan (1) Pneumonia Current Visit: No Status: Resolved Assessment and plan: started on IV zosyn and vanco. resp panel positive for coronavirus, influenza and metapneumovirus. CT chest shows new centrilobular nodular posteriorly in the lingula concerning for pneumonia. will treat as pneumonia and reassess clinically, currently on cefepime, vanco and levo given risk for pseudomonas and MRSA given recent chemo and radiation. will follow sputum cx results, de- escalate when able. Qualifiers: Pneumonia type: due to unspecified organism Laterality: right Lung location: upper lobe of lung Qualified Code(s): J18.1 - Lobar pneumonia, unspecified organism (2) History of coronary artery bypass graft Current Visit: Yes Status: Chronic (3) HTN (hypertension) Current Visit: Yes Status: Chronic Qualifiers: Hypertension type: renovascular hypertension Qualified Code(s): I15.0 - Renovascular hypertension (4) HLD (hyperlipidemia) Current Visit: Yes Status: Chronic Qualifiers: Hyperlipidemia type: mixed hyperlipidemia Qualified Code(s): E78.2 - Mixed hyperlipidemia (5) Diabetes mellitus Current Visit: No Status: Chronic Qualifiers: Diabetes mellitus type: type 2 Diabetes mellitus complication status: with kidney complications Diabetes mellitus complication detail: with chronic kidney disease Diabetes mellitus ad terminal makeup operator insulin use: without ad terminal makeup operator use Chronic kidney disease stage: stage 4 (severe) Qualified Code(s): E11.22 - Type 2 diabetes mellitus with diabetic chronic kidney disease; N18.4 - Chronic kidney disease, stage 4 (severe) (6) Elevated troponin Current Visit: Yes Status: Acute Assessment and plan: s/p [facility] in 2014, has severe three-vessel coronary artery disease with well- developed collaterals. Left ventricular is normal as mildly abnormal contractility LVEF 45%. Status post CABG 1of 3 patent bypass grafts. he denies any chest pain or sob at this time on trend, he always has elevated trop. possible demand ischemia 2/2 pneumonia and OMKAR> will monitor. (7) Iaegf-pw-zrewtyu kidney injury Current Visit: No Status: Acute Assessment and plan: has OMKAR on CKD. his baseline creatinine is variable. avoid nephrotoxins. will monitor (8) Lung cancer Current Visit: Yes Status: Acute Assessment and plan: lung cancer s/p recent chemo and radiation. CT chest shows shrinking of the lung mass. will f/u as OP with cancer center. Qualifiers: Laterality: right Lung location: hilum of lung Qualified Code(s): C34.01 - Malignant neoplasm of right main bronchus - Time Spent With Patient 25 - 35 minutes - Subjective Interval history: seen at the bedside, reports that he feels much better admitted for pneumonia. h/o lung cancer s/p chemo and radiation. - Constitutional Vitals: Temp Pulse Resp BP Pulse Ox 97.6 F 92 16 135/81 98 01/27/17 15:07 01/27/17 15:07 01/27/17 15:07 01/27/17 15:07 01/27/17 15:07 General appearance: Present: cachectic, disheveled, A&O X 3, no acute distress, answers questions appropriately Exam: - Head Head exam: Present: atraumatic, normocephalic - Eye Eye exam: Present: EOMI, PERRL, conjuntiva pink, sclera anicteric Pupils: Present: normal accommodation, PERRL - ENT ENT exam: Present: mucous membranes moist, normal oropharynx - Neck Neck exam general surgery: Present: supple, trachea midline. Absent: lymphadenopathy - Respiratory Respiratory exam: Present: decreased breath sounds, no wheezing Absent: accessory muscle use, CTAB, rales - Cardiovascular Cardiovascular exam: Present: distant heart sounds, RRR, +S1, +S2. Absent: diastolic murmur, gallop, rubs, systolic murmur - GI/Abdominal GI/Abdominal exam: Present: normal bowel sounds, soft, no peritoneal signs. Absent: distended, tenderness - Extremities Exam Extremities exam: Present: full ROM, warm, radial pulses palpable and symetrical. Absent: calf tenderness, cyanotic, pedal edema - Neurological Exam Neurological exam: Present: alert, CN II-XII intact, oriented X3, no focal deficits. Absent: pronater drift, facial droop, speech deficit - Psychiatric Psychiatric exam: Present: normal affect, normal mood - Skin Skin exam: Present: dry, intact Internal Medicine: Result - Labs CBC & Chem 7: 01/27/17 05:10 01/27/17 05:10 Labs: Short CBC 01/27/17 Range/Units 05:10 WBC 5.9 (4.3-11.1) K/mcL Hgb 9.6 L (12.9-16.9) g/dL Hct 30.4 L (37.5-50.1) % Plt Count 307 (140-400) K/mcL Neutrophils # 5.0 (1.6-8.9) K/mcL BMP 01/27/17 05:10 Sodium 134 L Potassium 4.8 H D Chloride 97 L Carbon Dioxide 21 BUN 39 H D Creatinine 2.55 H D Glucose 274 H Calcium 8.4 L Cardiac Enzymes 01/26/17 01/27/17 01/27/17 Range/Units 22:04 05:10 09:31 Troponin I 0.28 H* 0.36 H* 0.92 H* (0-0.03) ng/mL Liver Function 01/27/17 Range/Units 05:10 Total Bilirubin 0.5 (0.2-1.2) mg/dL AST 27 (5-34) Units/L ALT 23 (0-55) Units/L Alkaline Phosphatase 104 (38-126) Units/L Albumin 2.5 L (3.5-5.0) g/dL - ABG Interpretation ABG results: PT/INR, D-dimer PT 13.2 Seconds (9.4-12.1) H 01/27/17 05:10 - VTE Documentation of Mechanical Device: Graduated compression elastic hosiery Consult Discharge Plan - Plan Referrals: NO,PCP [Primary Care Provider] -
[2017-01-27] MEDS: Cefepime HCl 1,000 MG in D5% in Water (Mini-Bag+) 100 ML IVPB SCH (17:17)
[2017-01-28] MEDS: Melatonin 3 MG TABLET PO PRN ×2 (01:10→21:53)
[2017-01-28] MEDS: Insulin LISPRO 300 UNITS/3 ML VIAL SQ SCH ×5 (01:19→21:52)
[2017-01-28] MEDS: Insulin DETEMIR 100 UNIT/ML X5UNITS SQ SCH ×2 (01:20→21:53)
[2017-01-28] MEDS: Ipratropium/Albuterol Neb 3 ML IH SCH ×4 (04:37→23:15)
[2017-01-28] MEDS: *HR* OxyCODONE Immed Rel 15 MG TABLET PO PRN ×3 (04:42→19:22)
[2017-01-28] MEDS: Cefepime HCl 1,000 MG in D5% in Water (Mini-Bag+) 100 ML IVPB SCH (07:22)
[2017-01-28] MEDS: Sucralfate 1 GM TABLET PO SCH ×4 (07:23→21:53)
[2017-01-28] MEDS: Famotidine 20 MG TABLET PO SCH ×2 (08:22→21:53)
[2017-01-28] MEDS: Calcium Acetate 667 MG CAPSULE PO SCH ×3 (08:22→16:31)
[2017-01-28] MEDS: Furosemide 40 MG TABLET PO SCH (08:23)
[2017-01-28] MEDS: predniSONE 20 MG TABLET PO SCH (08:23)
[2017-01-28] MEDS: Gabapentin 100 MG CAPSULE PO SCH ×3 (08:23→21:54)
[2017-01-28] MEDS: Oseltamivir Phosphate 30 MG CAPSULE PO SCH ×2 (08:23→21:54)
[2017-01-28 08:41] LABS: Basophils % 0.1 %; Hematocrit 30.5 % (37.5-50.1); Hemoglobin 9.9 g/dL (12.9-16.9); Immature Granulocytes % 2.1 % (0-4); Lymphocytes # 0.4 K/mcL (0.6-4.6); Lymphocytes % 5.8 %; Mean Corpuscular HGB Conc 32.5 g/dL (31.6-35.5); Mean Corpuscular Hemoglobin 31.4 pg (28.0-33.3); Mean Corpuscular Volume 96.8 fL (83.0-100.0); Mean Platelet Volume 10.2 fL (9.4-12.4); Monocytes # 0.5 K/mcL (0.0-1.3); Monocytes % 6.2 %; Neutrophils # 6.6 K/mcL (1.6-8.9); Platelet Count 259 K/mcL (140-400); Red Blood Count 3.15 M/mcL (4.19-5.50); Red Cell Distribution Width 18.5 % (11.5-14.5); Segmented Neutrophils % 85.8 %
[2017-01-28 08:56] LABS: Calcium 9.1 mg/dL (8.6-10.8)
[2017-01-28 08:57] LABS: Potassium 3.6 mEq/L (3.5-4.5)
[2017-01-28] MEDS ORDERED: Vancomycin 1,000 MG in D5% in Water 250 ML IVPB SCH (09:00)
[2017-01-28] MEDS ORDERED: Aminoglycoside Consult 1 EACH MC ONE (10:00)
--- NOTE | 2017-01-28 10:04 | Electrocardiograph Report ---
[place] [id number] Test Date: 2017-01-26 Pat Name: Dario Guardado Department: 103 Room: 2A Gender: M Manager Utilities: JACIEL : 1955 Requested By: Yeyo Garcia Order Number: [id number] Reading MD: Bonifacio Esteban MD Measurements Intervals [place] Rate: 99 P: 70 ID: 145 QRS: 41 QRSD: 145 T: 42 QT: 418 QTc: 475 Interpretive Statements SINUS RHYTHM WITH OCCASIONAL SUPRAVENTRICULAR PREMATURE COMPLEXES INTRAVENTRICULAR CONDUCTION DELAY LEFT VENTRICULAR HYPERTROPHY WITH STRAIN PATTERN Electronically Signed On 01-28-2017 10:02:37 EDT by Bonifacio Esteban MD
[2017-01-28] MEDS: Nicotine 14 MG PATCH.TD24 TD SCH (12:07)
--- NOTE | 2017-01-28 12:40 | Internal Med Progress Note ---
Date of Encounter: 01/28/17 Time of Encounter: 12:21 - Assessment and plan (1) Pneumonia Current Visit: No Status: Resolved Assessment and plan: started on IV cefepime and vanco and levoflox. resp panel positive for coronavirus, influenza and metapneumovirus. CT chest shows new centrilobular nodular posteriorly in the lingula concerning for pneumonia. blood cx prelim negative, sputum for strep and Legionella antigen is negative. will stop vanco as the kidney fxn is worsening. will also stop cefepime and continue levoflox. Qualifiers: Pneumonia type: due to unspecified organism Laterality: right Lung location: upper lobe of lung Qualified Code(s): J18.1 - Lobar pneumonia, unspecified organism (2) History of coronary artery bypass graft Current Visit: Yes Status: Chronic (3) HTN (hypertension) Current Visit: Yes Status: Chronic Qualifiers: Hypertension type: renovascular hypertension Qualified Code(s): I15.0 - Renovascular hypertension (4) HLD (hyperlipidemia) Current Visit: Yes Status: Chronic Qualifiers: Hyperlipidemia type: mixed hyperlipidemia Qualified Code(s): E78.2 - Mixed hyperlipidemia (5) Diabetes mellitus Current Visit: No Status: Chronic Qualifiers: Diabetes mellitus type: type 2 Diabetes mellitus complication status: with kidney complications Diabetes mellitus complication detail: with chronic kidney disease Diabetes mellitus mcc insulin use: without mcc use Chronic kidney disease stage: stage 4 (severe) Qualified Code(s): E11.22 - Type 2 diabetes mellitus with diabetic chronic kidney disease; N18.4 - Chronic kidney disease, stage 4 (severe) (6) Elevated troponin Current Visit: Yes Status: Acute Assessment and plan: s/p [facility] in 2014, has severe three-vessel coronary artery disease with well- developed collaterals. Left ventricle is normal as mildly abnormal contractility LVEF 45%. Status post CABG 1of 3 patent bypass grafts. he denies any chest pain or sob at this time on trend, he always has elevated trop. possible demand ischemia 2/2 pneumonia and OMKAR> will monitor. (7) [id number]-fhdhjtg kidney injury Current Visit: No Status: Acute Assessment and plan: has OMKAR on CKD. his baseline creatinine is variable, but has been worsening now. will stop the vancomycin avoid nephrotoxins. will monitor (8) Lung cancer Current Visit: Yes Status: Acute Assessment and plan: lung cancer s/p recent chemo and radiation. CT chest shows shrinking of the lung mass. will f/u as OP with cancer center. Qualifiers: Laterality: right Lung location: hilum of lung Qualified Code(s): C34.01 - Malignant neoplasm of right main bronchus - Time Spent With Patient 25 - 35 minutes - Subjective Interval history: seen at the bedside, reports that he feels much better, admitted for pneumonia. h/o lung cancer s/p chemo and radiation. - Constitutional Vitals: Temp Pulse Resp BP Pulse Ox 97.7 F 89 20 133/80 97 01/28/17 11:16 01/28/17 11:16 01/28/17 11:16 01/28/17 07:04 01/28/17 11:16 General appearance: Present: cachectic, disheveled, A&O X 3, no acute distress, answers questions appropriately Exam: - Head Head exam: Present: atraumatic, normocephalic - Eye Eye exam: Present: EOMI, PERRL, conjuntiva pink, sclera anicteric Pupils: Present: normal accommodation, PERRL - ENT ENT exam: Present: mucous membranes moist, normal oropharynx - Neck Neck exam general surgery: Present: supple, trachea midline. Absent: lymphadenopathy - Respiratory Respiratory exam: Present: decreased breath sounds, no wheezing Absent: accessory muscle use, CTAB, rales - Cardiovascular Cardiovascular exam: Present: distant heart sounds, RRR, +S1, +S2. Absent: diastolic murmur, gallop, rubs, systolic murmur - GI/Abdominal GI/Abdominal exam: Present: normal bowel sounds, soft, no peritoneal signs. Absent: distended, tenderness - Extremities Exam Extremities exam: Present: full ROM, warm, radial pulses palpable and symetrical. Absent: calf tenderness, cyanotic, pedal edema - Neurological Exam Neurological exam: Present: alert, CN II-XII intact, oriented X3, no focal deficits. Absent: pronater drift, facial droop, speech deficit - Psychiatric Psychiatric exam: Present: normal affect, normal mood - Skin Skin exam: Present: dry, intact Internal Medicine: Result - Labs CBC & Chem 7: 01/28/17 08:21 01/28/17 08:21 Labs: Short CBC 01/28/17 Range/Units 08:21 WBC 7.6 (4.3-11.1) K/mcL Hgb 9.9 L (12.9-16.9) g/dL Hct 30.5 L (37.5-50.1) % Plt Count 259 (140-400) K/mcL Neutrophils # 6.6 (1.6-8.9) K/mcL BMP 01/28/17 08:21 Sodium 135 L Potassium 3.6 D Chloride 95 L Carbon Dioxide 27 BUN 66 H D Creatinine 3.16 H Glucose 145 H Calcium 9.1 - ABG Interpretation ABG results: PT/INR, D-dimer PT 13.2 Seconds (9.4-12.1) H 01/27/17 05:10 - VTE Documentation of Mechanical Device: Graduated compression elastic hosiery Consult Discharge Plan - Plan Referrals: NO,PCP [Primary Care Provider] -
[2017-01-28] MEDS: chlorproMAZINE 25 MG TABLET PO PRN (16:37)
[2017-01-29] MEDS: *HR* OxyCODONE Immed Rel 15 MG TABLET PO PRN ×3 (04:02→21:12)
[2017-01-29] MEDS: Ipratropium/Albuterol Neb 3 ML IH SCH ×4 (05:08→22:30)
[2017-01-29] MEDS: Nicotine 14 MG PATCH.TD24 TD SCH (06:29)
[2017-01-29] MEDS: Sucralfate 1 GM TABLET PO SCH ×4 (06:29→21:11)
[2017-01-29] MEDS: Gabapentin 100 MG CAPSULE PO SCH ×3 (06:29→21:11)
[2017-01-29] MEDS: Famotidine 20 MG TABLET PO SCH ×2 (06:30→21:11)
[2017-01-29] MEDS: predniSONE 20 MG TABLET PO SCH (06:30)
[2017-01-29] MEDS: Oseltamivir Phosphate 30 MG CAPSULE PO SCH ×2 (06:30→21:11)
[2017-01-29] MEDS: chlorproMAZINE 25 MG TABLET PO PRN (06:33)
[2017-01-29] MEDS: Calcium Acetate 667 MG CAPSULE PO SCH ×3 (07:29→17:17)
[2017-01-29] MEDS: Insulin LISPRO 300 UNITS/3 ML VIAL SQ SCH ×5 (07:30→21:16)
[2017-01-29] MEDS ORDERED: Vancomycin 750 MG in D5% in Water 250 ML IVPB SCH (08:00)
[2017-01-29 08:13] LABS: Basophils % 0.1 %; Eosinophils % 0.1 %; Hematocrit 32.4 % (37.5-50.1); Hemoglobin 10.7 g/dL (12.9-16.9); Immature Granulocytes % 1.1 % (0-4); Lymphocytes # 0.7 K/mcL (0.6-4.6); Mean Corpuscular Hemoglobin 31.9 pg (28.0-33.3); Mean Corpuscular Volume 96.7 fL (83.0-100.0); Mean Platelet Volume 10.4 fL (9.4-12.4); Monocytes # 0.7 K/mcL (0.0-1.3); Neutrophils # 9.9 K/mcL (1.6-8.9); Platelet Count 309 K/mcL (140-400); Red Blood Count 3.35 M/mcL (4.19-5.50); Red Cell Distribution Width 18.6 % (11.5-14.5); Segmented Neutrophils % 86.7 %
[2017-01-29 08:40] LABS: Calcium 9.3 mg/dL (8.6-10.8); Potassium 3.9 mEq/L (3.5-4.5)
[2017-01-29] MEDS ORDERED: Levofloxacin 750 MG/150 ML 750 MG/150 ML BAG IVPB SCH (09:00)
[2017-01-29] MEDS ORDERED: 0.9 % Sodium Chloride 250 ML IVC PRN (11:03)
[2017-01-29] MEDS ORDERED: Lidocaine -MPF 1% 2 ML VIAL INFILT ONE (11:27)
[2017-01-29 11:35] LABS: Hepatitis B Surface Antibody 1.57 mIU/mL
[2017-01-29] MEDS ORDERED: Sennosides/Docusate Sodium TABLET PO PRN (11:49)
--- NOTE | 2017-01-29 12:15 | Nephrology Consult Note ---
Date of Encounter: 01/29/17 Time of Encounter: 11:00 Assessment and Plan (1) ESRD (end stage renal disease) on dialysis Current Visit: Yes Status: Acute HD started for 3 hrs with UF goal of 2-3kg as tolerated 3k bath ordered Lidocaine for AV access cannulation ordered Next HD for sunday if still hospitalized (2) Lung cancer Current Visit: Yes Status: Acute Per oncology team Qualifiers: Laterality: right Lung location: hilum of lung Qualified Code(s): C34.01 - Malignant neoplasm of right main bronchus (3) Pneumonia Current Visit: Yes Status: Acute Supportive. Abx discontinued per primary team Qualifiers: Pneumonia type: due to unspecified organism Qualified Code(s): J18.9 - Pneumonia, unspecified organism History of Present Illness - Reason for Consult Consult date: 01/29/17 end stage renal disease Requesting physician: Tiff Quintanilla - History of Present Illness 61 yo male with PMH of HTN, CAD, COPD with lung cancer undergoing treatment and ESRD on HD admitted for SOB and was diagnosed with pneumonia with resp panel positive for several viruses. Last HD prior to admission was sunday. He seen and examined at HD units reporting feeling better with his SOB. No chest pain. No fevers or chills. No other complaints. Past Med Surg Social Fam HX - Past Medical History Medical history: arthritis, cancer, CHF, coronary artery disease, diabetes, dialysis, GERD, hyperlipidemia, hypertension, myocardial infarction, peripheral artery disease, renal disease Psychiatric history: anxiety, depression - Past Surgical History Surgical History: angioplasty/stent, carotid endarterectomy, coronary bypass ( CABG), orthopedic, other, other - Social History Smoking Status: Former smoker Smokeless Tobacco Status: No Alcohol use: none Drug use: none - Family History Brother Adopted: No Family Member Ethnicity: Non- Living Status: Hx Family Cardiac Disorders: Yes Hx Family Respiratory Disorders: Yes (dad black lung) Hx Family Cancer: Yes (mother) Hx Family GI Disorders: No Hx Family Endocrine Disorder: Yes (sister) Hx Family Neuromuscular Disorders: No Hx Family Neurologic Disorders: No Hx Family HEENT Disorders: No Hx Family Autoimmune Disorders: No Mother Adopted: No Living Status: Hx Family Cardiac Disorders: No Hx Family Respiratory Disorders: No Hx Family Cancer: Yes Hx Family GI Disorders: No Hx Family Endocrine Disorder: No Hx Family Neuromuscular Disorders: No Hx Family Neurologic Disorders: No Hx Family HEENT Disorders: No Hx Family Autoimmune Disorders: No Father Adopted: No Family Member Ethnicity: Non- Living Status: Hx Family Cardiac Disorders: No Hx Family Respiratory Disorders: Yes Hx Family Cancer: No Hx Family GI Disorders: No Hx Family Endocrine Disorder: No Hx Family Neuromuscular Disorders: No Hx Family Neurologic Disorders: No Hx Family HEENT Disorders: No Hx Family Autoimmune Disorders: No Medications and Allergies Atorvastatin [Lipitor] 40 mg PO HS #30 tablet 07/03/15 [Rx] Famotidine [Pepcid] 10 mg PO BID #60 tablet 07/03/15 [Rx] Albuterol Sulfate [Albuterol Inhaler] 2 puff IH Q4HR 07/29/15 [History] Budesonide/Formoterol 160/4.5 [Symbicort] 2 puff IH BIDR 07/29/15 [History] Gabapentin [Neurontin] 100 mg PO TID 07/29/15 [History] Glimepiride [Amaryl] 2 mg PO DAILY 07/29/15 [History] Calcium Acetate [Phos-LO] 667 mg PO TIDWM #90 capsule 10/02/15 [Rx] Carvedilol [Coreg] 25 mg PO BID #60 tablet 10/02/15 [Rx] Furosemide [Lasix] 40 mg PO DAILY 08/31/16 [History] Oxygen 3 l .ROUTE AD 08/31/16 [History] Albuterol Neb [Proventil Neb] 2.5 mg IH Q4HR PRN #30 vial.neb 09/03/16 [Rx] Multivitamin [Multivitamins] 1 cap PO DAILY 11/03/16 [History] Magic Mouthwash [Magic Mouthwash BLM] 10 ml PO QID PRN #240 ml 12/18/16 [Rx] Chlorpromazine HCl 25 mg PO Q8HR PRN #14 tablet 01/18/17 [Rx] Oxycodone HCl [Roxicodone 30 MG Immed Release] 30 mg PO Q6HR PRN #90 tab [Rx] Levofloxacin [Levaquin] 250 mg PO DAILY #10 tablet 01/23/17 [Rx] Sucralfate [Carafate] 1 gm PO QIDAC #120 tablet 01/24/17 [Rx] Tiotropium [Spiriva] 18 mcg IH DAILY 01/26/17 [History] Allergies codeine Allergy (Verified 01/20/17 23:57) Itching pollen extracts Allergy (Verified 01/20/17 23:57) Itching shellfish derived Adverse Reaction (Verified 01/20/17 23:57) Nausea IVP DYE Allergy (Intermediate, Uncoded 01/20/17 23:57) Vomiting Review of Systems All Systems: reviewed and no additional remarkable complaints except as stated ( ten systems reviewed) Exam - Vital Signs Vital signs: Initial Vital Signs Temp Pulse Resp BP Pulse Ox 97.5 F L 70 16 145/82 94 01/26/17 15:16 01/26/17 15:16 01/26/17 15:16 01/26/17 15:16 01/26/17 15:16 Vital Signs - Last 8 Hours Temp Pulse Resp BP Pulse Ox 01/29/17 08:08 97.4 F L 95 18 126/78 100 01/29/17 07:36 99 01/29/17 05:08 18 99 Intake and Output 01/28/17 01/29/17 01/29/17 23:59 07:59 15:59 Intake Total 240 / 240 700 / 700 360 / 360 Output Total 1250 / 1250 725 / 725 Balance -1010 / -1010 -25 / -25 360 / 360 Intake: Oral 240 / 240 700 / 700 360 / 360 Output: Urine 1250 / 1250 725 / 725 Other: Meal Dinner Breakfast Percent of Meal Consumed 45% 100% Weight 61.87 kg Blood Glucose* 206 181 Patient Weight 01/29/17 23:59 Weight 61.87 kg - General Appearance General appearance: chronically ill (NAD) EENT: ATNC, mucous membranes moist Neck: no JVD, supple Additional Comments: Good areation ant bilat Cardiology: no edema, normal S1, normal S2 - Dialysis Access Dialysis Vascular Access: Arteriovenous Fistula thrill: Yes bruit: Yes Gastrointestinal: no tenderness, no guarding Integumentary: warm and dry Neurologic: no focal deficit Musculoskeletal: no deformities Psychiatric: mood/affect appropriate Results - Lab Results 01/29/17 08:06 01/29/17 08:06 Most recent lab results Calcium 9.3 mg/dL (8.6-10.8) 01/29/17 08:06 Phosphorus 4.3 mg/dL (2.3-4.7) 01/27/17 05:10 Magnesium 1.9 mg/dL (1.6-2.6) 01/27/17 05:10 Consult Discharge Plan - Plan Referrals: Jeromy Wall MD [Partnered Physician] - 02/06/17 3:00 pm (Please follow up as schedule...)
--- NOTE | 2017-01-29 14:01 | Internal Med Progress Note ---
Date of Encounter: 01/29/17 Time of Encounter: 13:59 - Assessment and plan (1) Pneumonia Current Visit: No Status: Resolved Assessment and plan: clinically better resp panel positive for coronavirus, influenza and metapneumovirus. CT chest shows new centrilobular nodular posteriorly in the lingula concerning for pneumonia. blood cx prelim negative, sputum for strep and Legionella antigen is negative. continue levoflox. Qualifiers: Pneumonia type: due to unspecified organism Laterality: right Lung location: upper lobe of lung Qualified Code(s): J18.1 - Lobar pneumonia, unspecified organism (2) History of coronary artery bypass graft Current Visit: Yes Status: Chronic (3) HTN (hypertension) Current Visit: Yes Status: Chronic Qualifiers: Hypertension type: renovascular hypertension Qualified Code(s): I15.0 - Renovascular hypertension (4) HLD (hyperlipidemia) Current Visit: Yes Status: Chronic Qualifiers: Hyperlipidemia type: mixed hyperlipidemia Qualified Code(s): E78.2 - Mixed hyperlipidemia (5) Diabetes mellitus Current Visit: No Status: Chronic Qualifiers: Diabetes mellitus type: type 2 Diabetes mellitus complication status: with kidney complications Diabetes mellitus complication detail: with chronic kidney disease Diabetes mellitus cigarette packer insulin use: without jail use Chronic kidney disease stage: stage 4 (severe) Qualified Code(s): E11.22 - Type 2 diabetes mellitus with diabetic chronic kidney disease; N18.4 - Chronic kidney disease, stage 4 (severe) (6) Elevated troponin Current Visit: Yes Status: Acute Assessment and plan: s/p [facility] in 2014, has severe three-vessel coronary artery disease with well- developed collaterals. Left ventricle is normal as mildly abnormal contractility LVEF 45%. Status post CABG 1of 3 patent bypass grafts. he denies any chest pain or sob at this time on trend, he always has elevated trop. possible demand ischemia 2/2 pneumonia and OMKAR> will monitor. (7) Lung cancer Current Visit: Yes Status: Acute Assessment and plan: lung cancer s/p recent chemo and radiation. CT chest shows shrinking of the lung mass. will f/u as OP with cancer center. Qualifiers: Laterality: right Lung location: hilum of lung Qualified Code(s): C34.01 - Malignant neoplasm of right main bronchus (8) ESRD (end stage renal disease) on dialysis Current Visit: Yes Status: Acute Assessment and plan: planned for HD today, renal on board - Time Spent With Patient 25 - 35 minutes - Subjective Interval history: seen at the bedside, reports that he feels much better,but says he is not back to his baseline, admitted for pneumonia. h/o lung cancer s/p chemo and radiation. planned for HD today. - Constitutional Vitals: Temp Pulse Resp BP Pulse Ox 97.4 F L 95 18 95/59 100 01/29/17 08:08 01/29/17 08:08 01/29/17 08:08 01/29/17 13:40 01/29/17 08:08 General appearance: Present: cachectic, disheveled, A&O X 3, no acute distress, answers questions appropriately Exam: - Head Head exam: Present: atraumatic, normocephalic - Eye Eye exam: Present: EOMI, PERRL, conjuntiva pink, sclera anicteric Pupils: Present: normal accommodation, PERRL - ENT ENT exam: Present: mucous membranes moist, normal oropharynx - Neck Neck exam general surgery: Present: supple, trachea midline. Absent: lymphadenopathy - Respiratory Respiratory exam: Present: decreased breath sounds, no wheezing Absent: accessory muscle use, CTAB, rales - Cardiovascular Cardiovascular exam: Present: distant heart sounds, RRR, +S1, +S2. Absent: diastolic murmur, gallop, rubs, systolic murmur - GI/Abdominal GI/Abdominal exam: Present: normal bowel sounds, soft, no peritoneal signs. Absent: distended, tenderness - Extremities Exam Extremities exam: Present: full ROM, warm, radial pulses palpable and symetrical. Absent: calf tenderness, cyanotic, pedal edema - Neurological Exam Neurological exam: Present: alert, CN II-XII intact, oriented X3, no focal deficits. Absent: pronater drift, facial droop, speech deficit Internal Medicine: Result - Labs CBC & Chem 7: 01/29/17 08:06 01/29/17 08:06 Labs: Short CBC 01/29/17 Range/Units 08:06 WBC 11.4 H (4.3-11.1) K/mcL Hgb 10.7 L (12.9-16.9) g/dL Hct 32.4 L (37.5-50.1) % Plt Count 309 (140-400) K/mcL Neutrophils # 9.9 H (1.6-8.9) K/mcL BMP 01/29/17 08:06 Sodium 131 L Potassium 3.9 Chloride 92 L Carbon Dioxide 25 BUN 84 H D Creatinine 3.32 H Glucose 136 H Calcium 9.3 - ABG Interpretation ABG results: PT/INR, D-dimer PT 13.2 Seconds (9.4-12.1) H 01/27/17 05:10 - VTE Documentation of Mechanical Device: Graduated compression elastic hosiery Consult Discharge Plan - Plan Referrals: Jeromy Wall MD [Partnered Physician] - 02/06/17 3:00 pm (Please follow up as schedule...)
[2017-01-29] MEDS ORDERED: 0.9 % Sodium Chloride 2,000 ML ONE (14:49)
[2017-01-29] MEDS: Furosemide 40 MG TABLET PO SCH (16:01)
[2017-01-29] MEDS: *HR* Heparin 5,000 UNIT/ML VIAL SQ SCH (17:17)
[2017-01-29] MEDS: Melatonin 3 MG TABLET PO PRN (21:11)
[2017-01-29] MEDS: Insulin DETEMIR 100 UNIT/ML X5UNITS SQ SCH (21:18)
[2017-01-30] MEDS: Ipratropium/Albuterol Neb 3 ML IH SCH ×2 (04:18→10:35)
[2017-01-30] MEDS: *HR* OxyCODONE Immed Rel 15 MG TABLET PO PRN ×2 (06:13→11:56)
[2017-01-30] MEDS: *HR* Heparin 5,000 UNIT/ML VIAL SQ SCH (06:14)
[2017-01-30 07:03] LABS: Basophils % 0.2 %; Eosinophils % 0.3 %; Hematocrit 33.6 % (37.5-50.1); Hemoglobin 10.5 g/dL (12.9-16.9); Immature Granulocytes % 2.5 % (0-4); Lymphocytes # 0.7 K/mcL (0.6-4.6); Lymphocytes % 7.5 %; Mean Corpuscular HGB Conc 31.3 g/dL (31.6-35.5); Mean Corpuscular Hemoglobin 31.7 pg (28.0-33.3); Mean Corpuscular Volume 101.5 fL (83.0-100.0); Monocytes # 0.9 K/mcL (0.0-1.3); Monocytes % 9.8 %; Neutrophils # 7.7 K/mcL (1.6-8.9); Nucleated Red Blood Cells 0.2 /100 WBC (0); Platelet Count 244 K/mcL (140-400); Red Blood Count 3.31 M/mcL (4.19-5.50); Segmented Neutrophils % 79.7 %
[2017-01-30 07:28] LABS: Calcium 9.1 mg/dL (8.6-10.8)
[2017-01-30 07:56] LABS: Anisocytosis 1+ (Not Present); Poikilocytosis 1+ (Not Present); Polychromasia 1+ (Not Present)
[2017-01-30 07:57] LABS: Platelet Estimate Normal (Normal)
[2017-01-30 08:04] VITALS: BP 111/64
[2017-01-30] MEDS: Calcium Acetate 667 MG CAPSULE PO SCH ×2 (08:32→11:56)
[2017-01-30] MEDS: Gabapentin 100 MG CAPSULE PO SCH (08:33)
[2017-01-30] MEDS: Oseltamivir Phosphate 30 MG CAPSULE PO SCH (08:33)
[2017-01-30] MEDS: Sucralfate 1 GM TABLET PO SCH ×2 (08:33→11:55)
[2017-01-30] MEDS: Furosemide 40 MG TABLET PO SCH (08:33)
[2017-01-30] MEDS: Famotidine 20 MG TABLET PO SCH (08:33)
[2017-01-30] MEDS: Nicotine 14 MG PATCH.TD24 TD SCH (08:34)
[2017-01-30] MEDS: predniSONE 20 MG TABLET PO SCH (08:34)
[2017-01-30] MEDS: Insulin LISPRO 300 UNITS/3 ML VIAL SQ SCH ×2 (08:36→12:31)
--- NOTE | 2017-01-30 10:09 | Discharge Summary ---
Date of Encounter: 01/30/17 Time of Encounter: 10:07 - Discharge Diagnosis (1) Viral pneumonia Priority: Primary Status: Acute (2) Acute exacerbation of chronic obstructive airways disease Priority: Primary Status: Acute (3) Community acquired pneumonia Priority: Primary Status: Acute (4) HTN (hypertension) Priority: Secondary Status: Chronic Qualifiers: Hypertension type: essential hypertension Qualified Code(s): I10 - Essential (primary) hypertension (5) HLD (hyperlipidemia) Priority: Secondary Status: Chronic Qualifiers: Hyperlipidemia type: mixed hyperlipidemia Qualified Code(s): E78.2 - Mixed hyperlipidemia (6) Diabetes mellitus Priority: Secondary Status: Chronic Qualifiers: Diabetes mellitus type: type 2 Diabetes mellitus complication status: with kidney complications Diabetes mellitus complication detail: with chronic kidney disease Diabetes mellitus machine long goods helper insulin use: without group home use Chronic kidney disease stage: on chronic dialysis Qualified Code(s): E11.22 - Type 2 diabetes mellitus with diabetic chronic kidney disease; N18.6 - End stage renal disease; Z99.2 - Dependence on renal dialysis (7) Elevated troponin Priority: Primary Status: Acute (8) ESRD (end stage renal disease) on dialysis Priority: Secondary Status: Chronic (9) CAD (coronary artery disease) Priority: Secondary Status: Chronic Qualifiers: Coronary Disease-Associated Artery/Lesion type: bypass graft [place] vs. transplanted heart: [place] heart Associated angina: with unspecified angina Qualified Code(s): I25.709 - Atherosclerosis of coronary artery bypass graft(s) , unspecified, with unspecified angina pectoris (10) Lung cancer Priority: Secondary Status: Chronic Qualifiers: Laterality: right Lung location: hilum of lung Qualified Code(s): C34.01 - Malignant neoplasm of right main bronchus - Discharge Medications Prescriptions: Blood Sugar Diagnostic [Glucose Test Strip] 1 each ACHS #100 strip Lancets [Accu-Chek Safe-T-Pro] 1 each ACHS #100 each Levofloxacin [Levaquin] 750 mg PO Q48H #3 tablet Oseltamivir Phosphate [Tamiflu] 30 mg PO BID #6 capsule PredniSONE 40 mg PO DAILY #10 tablet Umeclidinium [place] [Incruse Ellipta] 62.5 mcg IH DAILY #1 blst.w.dev Home Medications: Atorvastatin [Lipitor] 40 mg PO HS #30 tablet 07/03/15 [Rx] Famotidine [Pepcid] 10 mg PO BID #60 tablet 07/03/15 [Rx] Albuterol Sulfate [Albuterol Inhaler] 2 puff IH Q4HR 07/29/15 [History] Budesonide/Formoterol 160/4.5 [Symbicort] 2 puff IH BIDR 07/29/15 [History] Gabapentin [Neurontin] 100 mg PO TID 07/29/15 [History] Glimepiride [Amaryl] 2 mg PO DAILY 07/29/15 [History] Calcium Acetate [Phos-LO] 667 mg PO TIDWM #90 capsule 10/02/15 [Rx] Carvedilol [Coreg] 25 mg PO BID #60 tablet 10/02/15 [Rx] Furosemide [Lasix] 40 mg PO DAILY 08/31/16 [History] Oxygen 3 l .ROUTE AD 08/31/16 [History] Albuterol Neb [Proventil Neb] 2.5 mg IH Q4HR PRN #30 vial.neb 09/03/16 [Rx] Multivitamin [Multivitamins] 1 cap PO DAILY 11/03/16 [History] Magic Mouthwash [Magic Mouthwash BLM] 10 ml PO QID PRN #240 ml 12/18/16 [Rx] Chlorpromazine HCl 25 mg PO Q8HR PRN #14 tablet 01/18/17 [Rx] Oxycodone HCl [Roxicodone 30 MG Immed Release] 30 mg PO Q6HR PRN #90 tab [Rx] Sucralfate [Carafate] 1 gm PO QIDAC #120 tablet 01/24/17 [Rx] Blood Sugar Diagnostic [Glucose Test Strip] 1 each ACHS #100 strip 01/30/17 [ Rx] Lancets [Accu-Chek Safe-T-Pro] 1 each ACHS #100 each 01/30/17 [Rx] Levofloxacin [Levaquin] 750 mg PO Q48H #3 tablet 01/30/17 [Rx] Oseltamivir Phosphate [Tamiflu] 30 mg PO BID #6 capsule 01/30/17 [Rx] PredniSONE 40 mg PO DAILY #10 tablet 01/30/17 [Rx] Umeclidinium [place] [Incruse Ellipta] 62.5 mcg IH DAILY #1 blst.w.dev 01/30/17 [Rx] Allergies/Adverse Reactions: Allergies codeine Allergy (Verified 01/20/17 23:57) Itching pollen extracts Allergy (Verified 01/20/17 23:57) Itching shellfish derived Adverse Reaction (Verified 01/20/17 23:57) Nausea IVP DYE Allergy (Intermediate, Uncoded 01/20/17 23:57) Vomiting Date of admission: 01/27/17 16:30 Primary care physician: PCP NO Consults: 01/29/17 08:37 Consult to Nephrology [CONS] Routine Consulting Provider: Kidney Leslie/TAN/ANA LILIA/FRANK Reason for Consult: please evaluate for maintenance HD. Thank you Call Completed: No Discharging clinician: Marilou Paredes Anticipated date of discharge: 01/30/17 - Patient Status Disposition: Home, Self-Care Condition: Fair Functional capacity at discharge: independent ambulation Overall status at discharge: patient is progressing back to baseline - Discharge Instructions Instructions: Acute Respiratory Distress Syndrome (DC), Diabetes Mellitus Type 2 in Adults (DC), Influenza (DC), Chronic Obstructive Pulmonary Disease (DC) Follow Up With: Jeromy Wall MD [Partnered Physician] - 02/06/17 3:00 pm (Please follow up as schedule...) Forms: ED Satisfaction Letter Additional Instructions: F/up with HD 3 times/week- MWF F/up with Oncology as scheduled - Diet and Activity Activity: resume usual activities as tolerated, wear oxygen at all times Diet: diabetic diet, low fat, low cholesterol, low salt diet, other (renal diet) Hospital course: Mr. Guardado is a 61 year old male with multiple medical problems, admitted with worsening shortness of breath and hypoxemia. He was noted to have possible pneumonia and was started on broad-spectrum IV antibiotics given his immunocompromise due to underlying malignancy and chemotherapy. Blood cultures remain negative. Urine for Legionella and strep anymore antigen negative. Viral serology was positive for influenza, metapneumovirus, coronavirus. Nephrology was consulted and patient received regular hemodialysis sessions while in the hospital. Patient's breathing status gradually improved and he is currently tolerating oral diet and is alert and oriented. He is medically stable for discharge. - Time Spent with Patient Total time spent providing and/or coordinating discharge services: Greater than 30 minutes (50 min) - Constitutional Vitals: Temp Pulse Resp BP Pulse Ox 97.8 F 97 16 111/64 100 01/30/17 08:03 01/30/17 08:03 01/30/17 08:03 01/30/17 08:03 01/30/17 08:43 General appearance: Present: cachectic, A&O X 3, answers questions appropriately - Respiratory Respiratory exam: Present: CTAB (B/L coarse breath sounds). Absent: accessory muscle use, rales, rhonchi, wheezes - Cardiovascular Cardiovascular exam: Present: RRR, +S1, +S2. Absent: diastolic murmur, gallop, rubs, systolic murmur - VTE Documentation of Mechanical Device: Graduated compression elastic hosiery
--- NOTE | 2017-01-30 15:30 | Physician Discharge Referral ---
Home Health/Hosp Referral Info Transfer to: Home Health Attending Provider: Marilou Paredes Provider in Charge Post Discharge: PCP - Diagnosis (1) Viral pneumonia Priority: Primary Status: Acute (2) Acute exacerbation of chronic obstructive airways disease Priority: Primary Status: Acute (3) Community acquired pneumonia Priority: Primary Status: Acute (4) HTN (hypertension) Priority: Secondary Status: Chronic (5) HLD (hyperlipidemia) Priority: Secondary Status: Chronic (6) Diabetes mellitus Priority: Secondary Status: Chronic (7) Elevated troponin Priority: Primary Status: Acute (8) ESRD (end stage renal disease) on dialysis Priority: Secondary Status: Chronic (9) CAD (coronary artery disease) Priority: Secondary Status: Chronic (10) Lung cancer Priority: Secondary Status: Chronic - Respiratory Orders Oxygen / L per min (2) Smoking Cessation: Smoking cessation has been advised. For more information, call the [place] Tobacco Quit Line at 7-108-YKVG-NOW. - Diet/Nutrition Diet/Nutrition Orders: No Added Salt (LUIS), Renal, Cardiac, No Concentrated Sweets (diabetic) - Activity Activity Orders: Ambulate - Services Needed Following services are medically necessary services: Nursing, Physical Therapy, Occupational Therapy - Transfer Medications Prescriptions: Blood Sugar Diagnostic [Glucose Test Strip] 1 each ACHS #100 strip Lancets [Accu-Chek Safe-T-Pro] 1 each ACHS #100 each Levofloxacin [Levaquin] 750 mg PO Q48H #3 tablet Oseltamivir Phosphate [Tamiflu] 30 mg PO BID #6 capsule PredniSONE 40 mg PO DAILY #10 tablet Umeclidinium [place] [Incruse Ellipta] 62.5 mcg IH DAILY #1 blst.w.dev Home Medications: Atorvastatin [Lipitor] 40 mg PO HS #30 tablet 07/03/15 [Rx] Famotidine [Pepcid] 10 mg PO BID #60 tablet 07/03/15 [Rx] Albuterol Sulfate [Albuterol Inhaler] 2 puff IH Q4HR 07/29/15 [History] Budesonide/Formoterol 160/4.5 [Symbicort] 2 puff IH BIDR 07/29/15 [History] Gabapentin [Neurontin] 100 mg PO TID 07/29/15 [History] Glimepiride [Amaryl] 2 mg PO DAILY 07/29/15 [History] Calcium Acetate [Phos-LO] 667 mg PO TIDWM #90 capsule 10/02/15 [Rx] Carvedilol [Coreg] 25 mg PO BID #60 tablet 10/02/15 [Rx] Furosemide [Lasix] 40 mg PO DAILY 08/31/16 [History] Oxygen 3 l .ROUTE AD 08/31/16 [History] Albuterol Neb [Proventil Neb] 2.5 mg IH Q4HR PRN #30 vial.neb 09/03/16 [Rx] Multivitamin [Multivitamins] 1 cap PO DAILY 11/03/16 [History] Magic Mouthwash [Magic Mouthwash BLM] 10 ml PO QID PRN #240 ml 12/18/16 [Rx] Chlorpromazine HCl 25 mg PO Q8HR PRN #14 tablet 01/18/17 [Rx] Oxycodone HCl [Roxicodone 30 MG Immed Release] 30 mg PO Q6HR PRN #90 tab [Rx] Sucralfate [Carafate] 1 gm PO QIDAC #120 tablet 01/24/17 [Rx] Blood Sugar Diagnostic [Glucose Test Strip] 1 each ACHS #100 strip 01/30/17 [ Rx] Lancets [Accu-Chek Safe-T-Pro] 1 each ACHS #100 each 01/30/17 [Rx] Levofloxacin [Levaquin] 750 mg PO Q48H #3 tablet 01/30/17 [Rx] Oseltamivir Phosphate [Tamiflu] 30 mg PO BID #6 capsule 01/30/17 [Rx] PredniSONE 40 mg PO DAILY #10 tablet 01/30/17 [Rx] Umeclidinium [place] [Incruse Ellipta] 62.5 mcg IH DAILY #1 blst.w.dev 01/30/17 [Rx] Allergies/Adverse Reactions: Allergies codeine Allergy (Verified 01/20/17 23:57) Itching pollen extracts Allergy (Verified 01/20/17 23:57) Itching shellfish derived Adverse Reaction (Verified 01/20/17 23:57) Nausea IVP DYE Allergy (Intermediate, Uncoded 01/20/17 23:57) Vomiting Certification: Further, I certify that my clinical findings support that this patient is homebound (i.e. absences from home require considerable and taxing effort and are for medical reasons or islam services or infrequently or short duration when for other reasons) because: Homebound Reason: Leaving home requires considerable and taxing effort due to condition Attestation: My signature below is to certify that this patient is under my care and that I, or nurse practitioner, or a physician's assistant spa director working with me, has a face-to -face encounter with this patient.
[2017-01-31] MEDS ORDERED: levoFLOXacin 500 MG TABLET PO SCH (07:00)
== END 2017-01-30 13:45 | disposition home or self-care (01) | DRG 193 ==
LOC: EMEROO 15:15 → 2ANU 15:15 → SUATTDRO 01-27 16:30
PROVIDERS: ADMIT Internal Medicine; ATTEND Internal Medicine

== ENCOUNTER 2017-02-06 11:48 | Observation (INO) ==
--- NOTE | 2017-02-06 13:21 | Emergency Department Note ---
Disposition Clinical Impression: Elevated troponin, Weakness Disposition: Admitted As Inpatient Condition: Good Time of Disposition: 13:51 SOB HPI - General Chief Complaint: ED Shortness of Breath/Dyspnea Stated Complaint: GENARO / Elevated HR From [facility] Time Seen by Provider: 02/06/17 11:57 Source: patient, family Limitations: no limitations Nursing Notes Reviewed: Yes Vital Signs Reviewed: Yes - History of Present Illness 61-year-old male presents with concerns of difficulty in breathing and tachycardia. Patient states that symptoms have been present for the past 24-48 hours. Patient is a poor historian and is unable to give a history case and presentation. Patient denies recent nausea, vomiting, diarrhea. He does report decreased by mouth intake due to a lack of appetite. Patient denies chest pain, diaphoresis, rash or fever. Patient is a dialysis patient with sessions on Sunday, Sunday, Sunday. He denies missing any of his dialysis sessions within the past week. - Related Data Home Medications Medication Instructions Recorded Confirmed Albuterol Sulfate [Albuterol 2 puff IH Q4HR 07/29/15 02/06/17 Inhaler] Budesonide/Formoterol 160/4.5 2 puff IH BIDR 07/29/15 02/06/17 [Symbicort] Gabapentin [Neurontin] 100 mg PO TID 07/29/15 02/06/17 Glimepiride [Amaryl] 2 mg PO DAILY 07/29/15 02/06/17 Furosemide [Lasix] 40 mg PO DAILY 08/31/16 02/06/17 Oxygen 3 l .ROUTE AD 08/31/16 02/06/17 Multivitamin [Multivitamins] 1 cap PO DAILY 11/03/16 02/06/17 Previous Rx's Medication Instructions Recorded Famotidine [Pepcid] 10 mg PO BID #60 tablet 07/03/15 Calcium Acetate [Phos-LO] 667 mg PO TIDWM #90 capsule 10/02/15 Carvedilol [Coreg] 25 mg PO BID #60 tablet 10/02/15 Albuterol Neb [Proventil Neb] 2.5 mg IH Q4HR PRN #30 vial.neb 09/03/16 Magic Mouthwash [Magic Mouthwash 10 ml PO QID PRN #240 ml 12/18/16 BLM] Chlorpromazine HCl 25 mg PO Q8HR PRN #14 tablet 01/18/17 Oxycodone HCl [Roxicodone 30 MG 30 mg PO Q6HR PRN #90 tab 01/22/17 Immed Release] Sucralfate [Carafate] 1 gm PO QIDAC #120 tablet 01/24/17 Blood Sugar Diagnostic [Glucose 1 each ACHS #100 strip 01/30/17 Test Strip] Umeclidinium [place] [Incruse 62.5 mcg IH DAILY #1 blst.w.dev 01/30/17 Ellipta] Allergies Allergy/AdvReac Type Severity Reaction Status Date / Time pollen extracts Allergy Itching Verified 02/06/17 11:54 shellfish derived AdvReac Nausea Verified 02/06/17 11:54 IVP DYE Allergy Intermediate Vomiting Uncoded 01/20/17 23:57 All systems ED: reviewed and negative except as stated. Constitutional: Reports: weakness. Denies: fever, chills Cardiovascular: Reports: palpitations, dyspnea on exertion. Denies: chest pain , orthopnea Respiratory: Reports: dyspnea. Denies: cough, wheezes, hemoptysis, stridor Gastrointestinal: Denies: abdominal pain, nausea, vomiting, diarrhea Musculoskeletal: Denies: back pain Integumentary: Denies: rash Neurological: Denies: headache, weakness, numbness, paresthesias Past Medical History - Past Medical History Attestation: Yes The following information was validated with the patient. Source: patient Medical history: Reports: arthritis, cancer, CHF, coronary artery disease, diabetes, dialysis, GERD, hyperlipidemia, hypertension, myocardial infarction, peripheral artery disease, renal disease Surgical history: Reports: angioplasty/stent, carotid endarterectomy, coronary bypass (CABG), orthopedic, other, other Psychiatric history: Reports: anxiety, depression - Social History Smoking Status: Former smoker Smokeless Tobacco Status: No Alcohol use: Reports: none Drug use: Reports: none Physical Exam General: Alert and in no acute distress Skin: Warm, dry, intact Head: Normocephalic and atraumatic Neck: Supple, trachea midline and no tenderness Cardiovascular: Tachycardia, no murmur, normal perfusion Respiratory: CTAB, no wheezing, cough, or respiratory distress Musculoskeletal: Normal strength, no tenderness, swelling or deformity GI: Soft, nontender, nondistended. Bowel sounds present Neuro: A&O to person, place, time and situation. No focal deficits noted on exam Psychiatric: cooperative and appropriate mood and affect. - General Limitations: no limitations General appearance: alert Course Vital Signs Temperature 97.6 F 02/06/17 11:49 Pulse Rate 105 02/06/17 11:49 Respiratory Rate 18 02/06/17 11:49 Blood Pressure 130/73 02/06/17 11:49 O2 Sat by Pulse Oximetry 97 02/06/17 11:49 Temperature 97.7 F 02/06/17 16:12 Pulse Rate 107 02/06/17 16:12 Respiratory Rate 18 02/06/17 16:12 Blood Pressure 144/87 02/06/17 16:12 O2 Sat by Pulse Oximetry 99 02/06/17 16:12 Oxygen Delivery Oxygen Delivery Nasal Cannula Shortness of Breath/Dyspnea - [facility] Narrative Medical decision making narrative: Patient has an elevated troponin of 0.24. Patient had a elevation of troponin last week however he does go to dialysis which should help that returned to a normal level. In combination with the patient's weakness he will be admitted to the hospital for further care and evaluation of elevated troponin and weakness to rule out ACS. Patient given aspirin in the emergency department. - Medical Records Medical records reviewed: Yes I reviewed the patient's medical records. - Lab Data Lab results reviewed: Yes I reviewed the patient's lab results. Result diagrams: 02/06/17 13:14 02/06/17 13:14 Lab Results 02/06/17 02/06/17 02/06/17 Range/Units 13:14 13:14 13:14 WBC 6.9 (4.3-11.1) K/mcL RBC 2.75 L (4.19-5.50) M/mcL Hgb 8.9 L (12.9-16.9) g/dL Hct 27.4 L (37.5-50.1) % MCV 99.6 (83.0-100.0) fL MCH 32.4 (28.0-33.3) pg MCHC 32.5 (31.6-35.5) g/dL RDW 18.6 H (11.5-14.5) % Plt Count 160 (140-400) K/mcL MPV 10.1 (9.4-12.4) fL Immature Gran % 0.7 (0-4) % Seg Neutrophils % 91.1 % Lymphocytes % 3.9 % Monocytes % 4.2 % Eosinophils % 0.0 % Basophils % 0.1 % Neutrophils # 6.3 (1.6-8.9) K/mcL Lymphocytes # 0.3 L (0.6-4.6) K/mcL Monocytes # 0.3 (0.0-1.3) K/mcL Eosinophils # 0.0 (0.0-0.6) K/mcL Basophils # 0.0 (0.0-0.2) K/mcL Sodium 138 (136-145) mEq/L Potassium 4.4 (3.5-4.5) mEq/L Chloride 99 (98-109) mEq/L Carbon Dioxide 27 (19-29) mEq/L BUN 44 H (8-26) mg/dL Creatinine 2.59 H (0.72-1.25) mg/dL Est GFR ( Amer) 31 L (> 60) Est GFR (Non-Af Amer) 26 L (> 60) BUN/Creatinine Ratio 17 (6-26) Glucose 76 (70-99) mg/dL Calculated Osmolality 296 (280-300) Calcium 8.7 (8.6-10.8) mg/dL Troponin I 0.24 H* (0-0.03) ng/mL B-Natriuretic Peptide (0-100) pg/mL 02/06/17 Range/Units 13:14 WBC (4.3-11.1) K/mcL RBC (4.19-5.50) M/mcL Hgb (12.9-16.9) g/dL Hct (37.5-50.1) % MCV (83.0-100.0) fL MCH (28.0-33.3) pg MCHC (31.6-35.5) g/dL RDW (11.5-14.5) % Plt Count (140-400) K/mcL MPV (9.4-12.4) fL Immature Gran % (0-4) % Seg Neutrophils % % Lymphocytes % % Monocytes % % Eosinophils % % Basophils % % Neutrophils # (1.6-8.9) K/mcL Lymphocytes # (0.6-4.6) K/mcL Monocytes # (0.0-1.3) K/mcL Eosinophils # (0.0-0.6) K/mcL Basophils # (0.0-0.2) K/mcL Sodium (136-145) mEq/L Potassium (3.5-4.5) mEq/L Chloride (98-109) mEq/L Carbon Dioxide (19-29) mEq/L BUN (8-26) mg/dL Creatinine (0.72-1.25) mg/dL Est GFR ( Amer) (> 60) Est GFR (Non-Af Amer) (> 60) BUN/Creatinine Ratio (6-26) Glucose (70-99) mg/dL Calculated Osmolality (280-300) Calcium (8.6-10.8) mg/dL Troponin I (0-0.03) ng/mL B-Natriuretic Peptide 2668 H (0-100) pg/mL - Radiology Data Radiology results reviewed: Yes I reviewed the patient's radiology results. - EKG Data EKG attestation: Yes I reviewed and interpreted this EKG. EKG results narrative: ECG - interpreted by ED physician. Rate 104 sinus tachycardia, no STEMI, WA, QT intervals, and QRS within normal limits
[2017-02-06 13:32] LABS: Basophils % 0.1 %; Hematocrit 27.4 % (37.5-50.1); Hemoglobin 8.9 g/dL (12.9-16.9); Immature Granulocytes % 0.7 % (0-4); Lymphocytes # 0.3 K/mcL (0.6-4.6); Lymphocytes % 3.9 %; Mean Corpuscular HGB Conc 32.5 g/dL (31.6-35.5); Mean Corpuscular Hemoglobin 32.4 pg (28.0-33.3); Mean Corpuscular Volume 99.6 fL (83.0-100.0); Mean Platelet Volume 10.1 fL (9.4-12.4); Monocytes # 0.3 K/mcL (0.0-1.3); Monocytes % 4.2 %; Neutrophils # 6.3 K/mcL (1.6-8.9); Platelet Count 160 K/mcL (140-400); Red Blood Count 2.75 M/mcL (4.19-5.50); Red Cell Distribution Width 18.6 % (11.5-14.5); Segmented Neutrophils % 91.1 %
[2017-02-06 13:41] LABS: Calcium 8.7 mg/dL (8.6-10.8); Potassium 4.4 mEq/L (3.5-4.5)
[2017-02-06] MEDS ORDERED: Aspirin 81 MG TAB.CHEW PO ONE (13:51)
[2017-02-06] MEDS ORDERED: 0.9 % Sodium Chloride 500 ML IVC ONE (14:14)
--- NOTE | 2017-02-06 16:24 | Internal Med History&Physical ---
Date of Encounter: 02/06/17 Time of Encounter: 16:21 Assessment and Plan (1) Elevated troponin Current visit: No Status: Acute Troponin eelvation, chronic, downtrending from prioir admission. No chest pain. (2) ESRD (end stage renal disease) on dialysis Current visit: No Status: Acute HD MWF, as per nephro, no need for emergent HD at this point. (3) CHF (congestive heart failure) Current visit: No Status: Chronic EF 45 %,resume home meds. Qualifiers: Congestive heart failure type: systolic Congestive heart failure chronicity : chronic Qualified Code(s): I50.22 - Chronic systolic (congestive) heart failure (4) Lung cancer Current visit: No Status: Chronic Treatment as per oncology. Qualifiers: Laterality: right Lung location: hilum of lung Qualified Code(s): C34.01 - Malignant neoplasm of right main bronchus (5) DVT prophylaxis Current visit: No Status: Acute Heparin sq. (6) Generalized weakness Current visit: Yes Status: Acute PT OT eval. Internal Medicine - H&P: HPI Chief complaint: tahycardia, low bp Admitted From: Emergency Dept Plans for Post Hospital Care: Home History of present illness: Mr. 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 The patient was sent to the ED for evaluation by his oncologist as he was undergoing evaluation for his ongoing cancer therapy. The patient was found to be tachycardic and hypotensive. He denies chest pain, fever, chills, changes in his chronic cough, diarrhea, skin rash, loss of consciousness. In the emergency department he was found to have elevated troponins, I reviewed his medical records, he has always had elevated troponins. He denies chest pain. The patient was seen and examined when he was already in the inpatient unit. He states that his breathing is essentially his baseline. He does not seem to be fluid overloaded. He had an echo done last year with an ejection fraction of 45% with Severe Pulmonary hypertension. His blood pressure in the inpatient unit is 145/89, his heart rate 105/m. Past Med Surg Social Fam HX - Past Medical History Medical history: arthritis, cancer, CHF, coronary artery disease, diabetes, dialysis, GERD, hyperlipidemia, hypertension, myocardial infarction, peripheral artery disease, renal disease Psychiatric history: anxiety, depression - Past Surgical History Surgical History: angioplasty/stent, carotid endarterectomy, coronary bypass ( CABG), orthopedic, other, other - Social History Smoking Status: Former smoker Smokeless Tobacco Status: No Alcohol use: none Drug use: none - Family History Brother Adopted: No Family Member Ethnicity: Non- Living Status: Hx Family Cardiac Disorders: Yes Hx Family Respiratory Disorders: Yes (dad black lung) Hx Family Cancer: Yes (mother) Hx Family GI Disorders: No Hx Family Endocrine Disorder: Yes (sister) Hx Family Neuromuscular Disorders: No Hx Family Neurologic Disorders: No Hx Family HEENT Disorders: No Hx Family Autoimmune Disorders: No Mother Adopted: No Living Status: Hx Family Cardiac Disorders: No Hx Family Respiratory Disorders: No Hx Family Cancer: Yes Hx Family GI Disorders: No Hx Family Endocrine Disorder: No Hx Family Neuromuscular Disorders: No Hx Family Neurologic Disorders: No Hx Family HEENT Disorders: No Hx Family Autoimmune Disorders: No Father Adopted: No Family Member Ethnicity: Non- Living Status: Hx Family Cardiac Disorders: No Hx Family Respiratory Disorders: Yes Hx Family Cancer: No Hx Family GI Disorders: No Hx Family Endocrine Disorder: No Hx Family Neuromuscular Disorders: No Hx Family Neurologic Disorders: No Hx Family HEENT Disorders: No Hx Family Autoimmune Disorders: No Internal Medicine - H&P: Meds Famotidine [Pepcid] 10 mg PO BID #60 tablet 07/03/15 [Rx] Albuterol Sulfate [Albuterol Inhaler] 2 puff IH Q4HR 07/29/15 [History] Budesonide/Formoterol 160/4.5 [Symbicort] 2 puff IH BIDR 07/29/15 [History] Gabapentin [Neurontin] 100 mg PO TID 07/29/15 [History] Glimepiride [Amaryl] 2 mg PO DAILY 07/29/15 [History] Calcium Acetate [Phos-LO] 667 mg PO TIDWM #90 capsule 10/02/15 [Rx] Carvedilol [Coreg] 25 mg PO BID #60 tablet 10/02/15 [Rx] Furosemide [Lasix] 40 mg PO DAILY 08/31/16 [History] Oxygen 3 l .ROUTE AD 08/31/16 [History] Albuterol Neb [Proventil Neb] 2.5 mg IH Q4HR PRN #30 vial.neb 09/03/16 [Rx] Multivitamin [Multivitamins] 1 cap PO DAILY 11/03/16 [History] Magic Mouthwash [Magic Mouthwash BLM] 10 ml PO QID PRN #240 ml 12/18/16 [Rx] Chlorpromazine HCl 25 mg PO Q8HR PRN #14 tablet 01/18/17 [Rx] Oxycodone HCl [Roxicodone 30 MG Immed Release] 30 mg PO Q6HR PRN #90 tab [Rx] Sucralfate [Carafate] 1 gm PO QIDAC #120 tablet 01/24/17 [Rx] Blood Sugar Diagnostic [Glucose Test Strip] 1 each ACHS #100 strip 01/30/17 [ Rx] Umeclidinium [place] [Incruse Ellipta] 62.5 mcg IH DAILY #1 blst.w.dev 01/30/17 [Rx] Allergies pollen extracts Allergy (Verified 02/06/17 11:54) Itching shellfish derived Adverse Reaction (Verified 02/06/17 11:54) Nausea IVP DYE Allergy (Intermediate, Uncoded 01/20/17 23:57) Vomiting All Systems PM: A 10-system review of systems was performed and is negative for pertinent findings except as documented above in the HPI. - Constitutional Constitutional: as per HPI, no chills, no fever(s), no night sweats - EENT Eyes: as per HPI, no change in vision, no discharge, no pain, no photophobia Ears: as per HPI, no ear discharge, no ear pain, no tinnitus Nose, mouth and throat: as per HPI, no dysphagia, no nasal discharge, no neck pain, no sore throat - Breasts Breasts: as per HPI - Cardiovascular Cardiovascular ROS IM: as per HPI, dyspnea, dyspnea on exertion, no chest pain, no diaphoresis, no lightheadedness, no palpitations, no syncope - Respiratory Respiratory: as per HPI, cough, dyspnea, dyspnea on exertion, no wheezing, no excessive phlegm production - Gastrointestinal Gastrointestinal: as per HPI, no abdominal pain, no diarrhea, no hematemesis, no hematochezia, no melena, no nausea, no vomiting - Genitourinary Genitourinary ROS male: as per HPI - Musculoskeletal Musculoskeletal ROS IM: as per HPI, no numbness, no tingling - Integumentary Integumentary IM: as per HPI, no rash, no unusual bruising - Neurological Neurological ROS: as per HPI, no confusion, no convulsions, no focal weakness, no numbness, no tingling, no tremor(s) - Psychiatric Psychiatric: as per HPI - Endocrine Endocrine IM: as per HPI - Hematologic/Lymphatic Hematologic/Lymphatic: as per HPI, no easy bruising - Allergic/Immunologic Allergic/Immunologic: as per HPI - Constitutional Vitals: Temp Pulse Resp BP Pulse Ox 97.7 F 107 18 144/87 99 02/06/17 16:12 02/06/17 16:12 02/06/17 16:12 02/06/17 16:12 02/06/17 16:12 General appearance: Present: A&O X 3, pleasant - Head Head exam: Present: atraumatic, normocephalic - Eye Eye exam: Present: PERRL, conjuntiva pink, sclera anicteric Pupils: Present: PERRL - Neck Neck exam general surgery: Present: supple, trachea midline. Absent: lymphadenopathy - Respiratory Respiratory exam: Present: decreased breath sounds. Absent: accessory muscle use, rales, rhonchi, wheezes - Cardiovascular Cardiovascular exam: Present: RRR, +S1, +S2. Absent: diastolic murmur, gallop, rubs, systolic murmur - GI/Abdominal GI/Abdominal exam: Present: normal bowel sounds, soft, no peritoneal signs. Absent: distended, tenderness - Extremities Exam Extremities exam: Present: warm, radial pulses palpable and symetrical. Absent : calf tenderness, cyanotic, pedal edema - Neurological Exam Neurological exam: Present: CN II-XII intact, oriented X3, no focal deficits. Absent: pronater drift, facial droop, speech deficit - Skin Skin exam: Present: dry, intact Internal Med - H&P Results - Labs CBC & Chem 7: 02/06/17 13:14 02/06/17 13:14
[2017-02-06] MEDS ORDERED: Ondansetron 4 MG/2 ML VIAL IVP PRN (16:30)
[2017-02-06] MEDS ORDERED: Acetaminophen 325 MG TABLET PO PRN (16:30)
[2017-02-06] MEDS ORDERED: Naloxone 0.4 MG/ML INJ IVP PRN (16:30)
[2017-02-06] MEDS ORDERED: Albuterol 2.5 MG/3 ML NEBULIZER IH PRN (16:33)
[2017-02-06] MEDS ORDERED: OXYCODONE HCL 30 MG PO PRN (16:33)
[2017-02-06] MEDS ORDERED: *HR* OxyCODONE Immed Rel 15 MG TABLET PO PRN (16:48)
[2017-02-06] MEDS: Calcium Acetate 667 MG CAPSULE PO SCH (17:19)
[2017-02-06] MEDS: *HR* Heparin 5,000 UNIT/ML VIAL SQ SCH (17:20)
[2017-02-06] MEDS: *HR* OxyCODONE Immed Rel 15 MG TABLET PO PRN ×2 (17:23→23:49)
--- NOTE | 2017-02-06 19:15 | Electrocardiograph Report ---
[place] [id number] Test Date: 2017-02-06 Pat Name: Dario Guardado Department: 103 Room: 2A Gender: M Open Winder: : 1955 Requested By: Jacob Rdz Order Number: [id number] Reading MD: Sabine Gonzalez Measurements Intervals [place] Rate: 104 P: -64 MD: 145 QRS: 65 QRSD: 99 T: 87 QT: 358 QTc: 419 Interpretive Statements ATRIAL TACHYCARDIA ST DEVIATION AND MODERATE T-WAVE ABNORMALITY, CONSIDER LATERAL ISCHEMIA Electronically Signed On 02-06-2017 19:13:47 EDT by Sabine Gonzalez
[2017-02-06] MEDS: Budesonide/Formoterol 160/4.5 MDI IH SCH (19:59)
[2017-02-06] MEDS: Magic Mouthwash 10 ML UD Cup PO SCH (23:49)
[2017-02-07 04:50] LABS: Basophils % 0.1 %; Eosinophils % 0.3 %; Hematocrit 28.3 % (37.5-50.1); Immature Granulocytes % 0.7 % (0-4); Lymphocytes # 0.4 K/mcL (0.6-4.6); Lymphocytes % 6.4 %; Mean Corpuscular HGB Conc 31.8 g/dL (31.6-35.5); Mean Corpuscular Hemoglobin 32.3 pg (28.0-33.3); Mean Corpuscular Volume 101.4 fL (83.0-100.0); Mean Platelet Volume 11.2 fL (9.4-12.4); Monocytes # 0.4 K/mcL (0.0-1.3); Neutrophils # 5.8 K/mcL (1.6-8.9); Platelet Count 159 K/mcL (140-400); Red Blood Count 2.79 M/mcL (4.19-5.50); Red Cell Distribution Width 18.3 % (11.5-14.5); Segmented Neutrophils % 86.5 %
[2017-02-07 05:10] LABS: Calcium 8.7 mg/dL (8.6-10.8); Potassium 4.7 mEq/L (3.5-4.5)
[2017-02-07] MEDS: *HR* Heparin 5,000 UNIT/ML VIAL SQ SCH ×2 (05:56→18:11)
[2017-02-07] MEDS: *HR* OxyCODONE Immed Rel 15 MG TABLET PO PRN ×2 (06:00→17:42)
[2017-02-07] MEDS: Calcium Acetate 667 MG CAPSULE PO SCH ×3 (07:21→17:42)
[2017-02-07] MEDS: Magic Mouthwash 10 ML UD Cup PO SCH ×3 (07:22→17:43)
[2017-02-07] MEDS: Budesonide/Formoterol 160/4.5 MDI IH SCH ×2 (07:36→20:13)
[2017-02-07] MEDS ORDERED: 0.9 % Sodium Chloride 250 ML IVC PRN (10:15)
[2017-02-07] MEDS ORDERED: 0.9 % Sodium Chloride 1,000 ML PRIME SCH (10:15)
--- NOTE | 2017-02-07 10:28 | Internal Med Progress Note ---
<Josh Rochessaram Mcclure - Last Filed: 02/07/17 10:52> Date of Encounter: 02/07/17 Time of Encounter: 10:25 - Assessment and plan (1) Tachycardia Current Visit: No Status: Acute Assessment and plan: Patient presented with to [facility] with tachycardia with hypotension (2) Elevated troponin Current Visit: Yes Status: Chronic Assessment and plan: Chronic troponin elevation in the setting of ESRD on dialysis and chronic respiratory failure Troponin trending down from previous hospitalization Plan for HD today (3) Generalized weakness Current Visit: Yes Status: Acute Assessment and plan: PT/OT eval Patient with Lung cancer, chronic respiratory failure (4) ESRD (end stage renal disease) on dialysis Current Visit: No Status: Chronic Assessment and plan: HD today Following with nephrology (5) CHF (congestive heart failure) Current Visit: No Status: Chronic Assessment and plan: ECHO demonstrated LVEF 45% Continue home medications Qualifiers: Congestive heart failure type: systolic Congestive heart failure chronicity : chronic Qualified Code(s): I50.22 - Chronic systolic (congestive) heart failure (6) Lung cancer Current Visit: No Status: Chronic Assessment and plan: Patient continues to complain of shortness of breath He has COPD and chronic respiratory failure at baseline Patient has known history of Squamous cell carcinoma of the lung and follows with oncology He is requiring 2L O2 during this hospital stay, however he uses 3L O2 at home Scheduled nebs, O2 supplementation, symbicort Qualifiers: Laterality: right Lung location: hilum of lung Qualified Code(s): C34.01 - Malignant neoplasm of right main bronchus (7) DVT prophylaxis Current Visit: No Status: Acute Assessment and plan: Heparin SQ - Time Spent With Patient 25 - 35 minutes (25 minutes including time with patient and coordinating care) - Subjective Interval history: Patient states that dyspnea is greater than his baseline. He is currently using 2L O2, but requires 3L O2 at home. Patient admits racing heart today. Denies chest pain, palpitations, pain with deep inspiration, peripheral edema. Denies abdominal pain, constipation, diarrhea. - Constitutional Vitals: Temp Pulse Resp BP Pulse Ox 98.2 F 105 18 134/83 100 02/07/17 07:05 02/07/17 07:05 02/07/17 07:05 02/07/17 07:05 02/07/17 07:27 General appearance: Present: A&O X 3, pleasant - Head Head exam: Present: atraumatic, normocephalic - Eye Eye exam: Present: PERRL, conjuntiva pink, sclera anicteric Pupils: Present: PERRL - Neck Neck exam general surgery: Present: supple, trachea midline. Absent: lymphadenopathy - Respiratory Respiratory exam: Present: decreased breath sounds, prolonged expiratory phase, respiratory distress (mild. patient exhales with pursed lips after minimal activity), wheezes (Diffuse wheezing in all lung hirsch). Absent: accessory muscle use, rales, rhonchi - Cardiovascular Cardiovascular exam: Present: +S2, systolic murmur (6/6 blowing holosysolic murmur at apex), tachycardia. Absent: diastolic murmur, gallop, rubs - GI/Abdominal GI/Abdominal exam: Present: normal bowel sounds, soft, no peritoneal signs. Absent: distended, tenderness - Extremities Exam Extremities exam: Present: warm, radial pulses palpable and symetrical. Absent : calf tenderness, cyanotic, pedal edema - Neurological Exam Neurological exam: Present: CN II-XII intact, oriented X3, no focal deficits. Absent: pronater drift, facial droop, speech deficit - Skin Skin exam: Present: dry, intact Internal Medicine: Result - Labs CBC & Chem 7: 02/07/17 03:54 02/07/17 03:54 Labs: Short CBC 02/07/17 Range/Units 03:54 WBC 6.7 (4.3-11.1) K/mcL Hgb 9.0 L (12.9-16.9) g/dL Hct 28.3 L (37.5-50.1) % Plt Count 159 (140-400) K/mcL Neutrophils # 5.8 (1.6-8.9) K/mcL BMP 02/07/17 03:54 Sodium 136 Potassium 4.7 H Chloride 99 Carbon Dioxide 24 BUN 51 H Creatinine 3.03 H Glucose 78 Calcium 8.7 - EKG Interpretation EKG Interpreted by Myself: Yes (tachycardia, T wave inversions in V5, V6) Rate: tachycardia - VTE Documentation of Mechanical Device: Graduated compression elastic hosiery Consult Discharge Plan - Plan Referrals: Jeromy Wall MD [Primary Care Provider] - <Ever Davidson - Last Filed: 02/07/17 18:15> Date of Encounter: 02/07/17 - Assessment and plan (1) Elevated troponin Current Visit: No Status: Acute (2) ESRD (end stage renal disease) on dialysis Current Visit: No Status: Chronic (3) CHF (congestive heart failure) Current Visit: No Status: Chronic Qualifiers: Congestive heart failure type: systolic Congestive heart failure chronicity : chronic Qualified Code(s): I50.22 - Chronic systolic (congestive) heart failure (4) Lung cancer Current Visit: No Status: Chronic Qualifiers: Laterality: right Lung location: hilum of lung Qualified Code(s): C34.01 - Malignant neoplasm of right main bronchus (5) DVT prophylaxis Current Visit: No Status: Acute (6) Generalized weakness Current Visit: Yes Status: Acute - Constitutional Vitals: Temp Pulse Resp BP Pulse Ox 97.6 F 98 18 122/70 96 02/07/17 11:32 02/07/17 11:32 02/07/17 11:32 02/07/17 11:32 02/07/17 11:32 Internal Medicine: Result - Labs CBC & Chem 7: 02/07/17 03:54 02/07/17 03:54 Labs: Short CBC 02/07/17 Range/Units 03:54 WBC 6.7 (4.3-11.1) K/mcL Hgb 9.0 L (12.9-16.9) g/dL Hct 28.3 L (37.5-50.1) % Plt Count 159 (140-400) K/mcL Neutrophils # 5.8 (1.6-8.9) K/mcL BMP 02/07/17 03:54 Sodium 136 Potassium 4.7 H Chloride 99 Carbon Dioxide 24 BUN 51 H Creatinine 3.03 H Glucose 78 Calcium 8.7 - Attending Attestation I examined this patient and my medical decision-making was reviewed with the KEG HEADER/PA/Advanced Practice Nurse/Resident Physician. I agree with the documented findings, disposition and treatment plan as described except to the extent set forth below. Follow PT OT eval, might need placement.
--- NOTE | 2017-02-07 10:59 | Nephrology Consult Note ---
Date of Encounter: 02/07/17 Time of Encounter: 10:59 Assessment and Plan (1) ESRD (end stage renal disease) on dialysis Current Visit: No Status: Chronic Will continue dialysis on a MWF schedule. Adjust medication for renal function. Renal diet. (2) Anemia in CKD (chronic kidney disease) Current Visit: No Status: Chronic Hemoglobin stable. Monitor for bleeding. (3) Tachycardia Current Visit: No Status: Acute Heart rate back to his normal per patient. Defer to primary team. Patient denies new chest pain or pressure at the time of my evaluation. He had dyspnea upon admission, but states this is improved. (4) Lung cancer Current Visit: No Status: Chronic per primary team. Qualifiers: Laterality: right Lung location: hilum of lung Qualified Code(s): C34.01 - Malignant neoplasm of right main bronchus History of Present Illness - Reason for Consult Consult date: 02/07/17 end stage renal disease - Chief Complaint ESRD - History of Present Illness Mr. Guardado is a 61 yo man with ESRD who is followed by Dr. Francois at the [facility] dialysis unit where he receives dialysis M, W, F. He presents for the evaluation of tachycardia and hypotension found during a visit with his oncologist. He is better at the time of my evaluation and is anticipating dialysis. He denies new chest pain and reports his breathing is at baseline. Past Med Surg Social Fam HX - Past Medical History Medical history: arthritis, cancer, CHF, coronary artery disease, diabetes, dialysis, GERD, hyperlipidemia, hypertension, myocardial infarction, peripheral artery disease, renal disease Psychiatric history: anxiety, depression - Past Surgical History Surgical History: angioplasty/stent, carotid endarterectomy, coronary bypass ( CABG), orthopedic, other, other - Social History Smoking Status: Former smoker Smokeless Tobacco Status: No Alcohol use: none Drug use: none - Family History Brother Adopted: No Family Member Ethnicity: Non- Living Status: Hx Family Cardiac Disorders: Yes Hx Family Respiratory Disorders: Yes (dad black lung) Hx Family Cancer: Yes (mother) Hx Family GI Disorders: No Hx Family Endocrine Disorder: Yes (sister) Hx Family Neuromuscular Disorders: No Hx Family Neurologic Disorders: No Hx Family HEENT Disorders: No Hx Family Autoimmune Disorders: No Mother Adopted: No Living Status: Hx Family Cardiac Disorders: No Hx Family Respiratory Disorders: No Hx Family Cancer: Yes Hx Family GI Disorders: No Hx Family Endocrine Disorder: No Hx Family Neuromuscular Disorders: No Hx Family Neurologic Disorders: No Hx Family HEENT Disorders: No Hx Family Autoimmune Disorders: No Father Adopted: No Family Member Ethnicity: Non- Living Status: Hx Family Cardiac Disorders: No Hx Family Respiratory Disorders: Yes Hx Family Cancer: No Hx Family GI Disorders: No Hx Family Endocrine Disorder: No Hx Family Neuromuscular Disorders: No Hx Family Neurologic Disorders: No Hx Family HEENT Disorders: No Hx Family Autoimmune Disorders: No Medications and Allergies Famotidine [Pepcid] 10 mg PO BID #60 tablet 07/03/15 [Rx] Albuterol Sulfate [Albuterol Inhaler] 2 puff IH Q4HR 07/29/15 [History] Budesonide/Formoterol 160/4.5 [Symbicort] 2 puff IH BIDR 07/29/15 [History] Gabapentin [Neurontin] 100 mg PO TID 07/29/15 [History] Glimepiride [Amaryl] 2 mg PO DAILY 07/29/15 [History] Calcium Acetate [Phos-LO] 667 mg PO TIDWM #90 capsule 10/02/15 [Rx] Carvedilol [Coreg] 25 mg PO BID #60 tablet 10/02/15 [Rx] Furosemide [Lasix] 40 mg PO DAILY 08/31/16 [History] Oxygen 3 l .ROUTE AD 08/31/16 [History] Albuterol Neb [Proventil Neb] 2.5 mg IH Q4HR PRN #30 vial.neb 09/03/16 [Rx] Multivitamin [Multivitamins] 1 cap PO DAILY 11/03/16 [History] Magic Mouthwash [Magic Mouthwash BLM] 10 ml PO QID PRN #240 ml 12/18/16 [Rx] Chlorpromazine HCl 25 mg PO Q8HR PRN #14 tablet 01/18/17 [Rx] Oxycodone HCl [Roxicodone 30 MG Immed Release] 30 mg PO Q6HR PRN #90 tab [Rx] Sucralfate [Carafate] 1 gm PO QIDAC #120 tablet 01/24/17 [Rx] Blood Sugar Diagnostic [Glucose Test Strip] 1 each ACHS #100 strip 01/30/17 [ Rx] Umeclidinium [place] [Incruse Ellipta] 62.5 mcg IH DAILY #1 blst.w.dev 01/30/17 [Rx] Allergies pollen extracts Allergy (Verified 02/06/17 11:54) Itching shellfish derived Adverse Reaction (Verified 02/06/17 11:54) Nausea IVP DYE Allergy (Intermediate, Uncoded 01/20/17 23:57) Vomiting Review of Systems All Systems: reviewed and no additional remarkable complaints except as stated ( as documented in the HPI) Exam - Vital Signs Vital signs: Initial Vital Signs Temp Pulse Resp BP Pulse Ox 97.6 F 105 18 130/73 97 02/06/17 11:49 02/06/17 11:49 02/06/17 11:49 02/06/17 11:49 02/06/17 11:49 Vital Signs - Last 8 Hours Temp Pulse Resp BP Pulse Ox 02/07/17 07:27 100 02/07/17 07:05 98.2 F 105 18 134/83 100 02/07/17 05:11 97.6 F 106 18 121/71 100 Intake and Output 02/06/17 02/07/17 02/07/17 23:59 07:59 15:59 Intake Total 0 / 0 120 / 120 Output Total 450 / 450 Balance 0 / 0 -330 / -330 Intake: Oral 0 / 0 120 / 120 Output: Urine 450 / 450 Other: Meal Breakfast Weight 62.505 kg Blood Glucose* 189 76 110 Patient Weight 02/07/17 23:59 Weight 62.505 kg - General Appearance General appearance: well-developed, well-nourished, chronically ill EENT: ATNC Neck: supple Additional Comments: bilateral rhonchi right>left. No wheezing scattered mild rales. Cardiology: no edema, regular rhythm Additional Comments: rapid rate - Dialysis Access Dialysis Vascular Access: Arteriovenous Fistula (right forearm) thrill: Yes bruit: Yes Gastrointestinal: normoactive bowel sounds, no tenderness Integumentary: warm and dry Neurologic: alert and oriented x3 Musculoskeletal: no erythema Psychiatric: mood/affect appropriate Results - Lab Results 02/07/17 03:54 02/07/17 03:54 Most recent lab results Calcium 8.7 mg/dL (8.6-10.8) 02/07/17 03:54 Consult Discharge Plan - Plan Referrals: Duke,Jeromy D, MD [Primary Care Provider] -
[2017-02-07] MEDS: Albuterol 2.5 MG/3 ML NEBULIZER IH SCH ×3 (11:07→20:13)
[2017-02-07] MEDS: Gabapentin 100 MG CAPSULE PO SCH ×2 (17:42→22:30)
[2017-02-07] MEDS: Sucralfate 1 GM TABLET PO SCH ×2 (18:10→22:33)
[2017-02-07] MEDS: Famotidine 20 MG TABLET PO SCH (22:30)
[2017-02-08] MEDS: Albuterol 2.5 MG/3 ML NEBULIZER IH SCH ×4 (00:05→11:17)
[2017-02-08] MEDS: *HR* OxyCODONE Immed Rel 15 MG TABLET PO PRN ×3 (00:13→12:29)
[2017-02-08] MEDS: *HR* Heparin 5,000 UNIT/ML VIAL SQ SCH (05:05)
[2017-02-08 06:35] LABS: Eosinophils % 0.7 %; Hematocrit 25.9 % (37.5-50.1); Hemoglobin 8.2 g/dL (12.9-16.9); Immature Granulocytes % 0.6 % (0-4); Lymphocytes # 0.4 K/mcL (0.6-4.6); Lymphocytes % 6.5 %; Mean Corpuscular HGB Conc 31.7 g/dL (31.6-35.5); Mean Corpuscular Volume 101.2 fL (83.0-100.0); Monocytes # 0.3 K/mcL (0.0-1.3); Monocytes % 5.9 %; Neutrophils # 4.7 K/mcL (1.6-8.9); Platelet Count 133 K/mcL (140-400); Red Blood Count 2.56 M/mcL (4.19-5.50); Red Cell Distribution Width 18.1 % (11.5-14.5); Segmented Neutrophils % 86.3 %
[2017-02-08 06:48] LABS: Calcium 8.3 mg/dL (8.6-10.8)
[2017-02-08 06:49] LABS: Potassium 3.6 mEq/L (3.5-4.5)
[2017-02-08] MEDS: Budesonide/Formoterol 160/4.5 MDI IH SCH (07:34)
[2017-02-08] MEDS: Sucralfate 1 GM TABLET PO SCH ×2 (07:39→12:03)
[2017-02-08] MEDS: Famotidine 20 MG TABLET PO SCH (07:39)
[2017-02-08] MEDS: Gabapentin 100 MG CAPSULE PO SCH (07:39)
[2017-02-08] MEDS: Calcium Acetate 667 MG CAPSULE PO SCH ×2 (07:39→12:03)
[2017-02-08] MEDS: Magic Mouthwash 10 ML UD Cup PO SCH ×2 (07:39→12:03)
--- NOTE | 2017-02-08 09:30 | Nephrology Progress Note ---
Date of Encounter: 02/08/17 Time of Encounter: 09:28 - Assessment and Plan (1) ESRD (end stage renal disease) on dialysis Current Visit: No Status: Chronic Plan for HD tomorrow Continue renal diet Continue strict I/Os Avoid nephrotoxins if possible (2) Tachycardia Current Visit: No Status: Acute Heart rate WNL at this time per primary team (3) Anemia in CKD (chronic kidney disease) Current Visit: No Status: Chronic Hgb down to 8.3 Goal hgb 10-11 Transfuse per parameters (4) Lung cancer Current Visit: No Status: Chronic per oncology/primary team Qualifiers: Laterality: right Lung location: hilum of lung Qualified Code(s): C34.01 - Malignant neoplasm of right main bronchus Subjective Principal diagnosis: ESRD on dialysis; tachycardia; lung cancer Interval history: Patient seen and examined. Sleeping at time of exam Objective - Vital Signs Vital signs: Vital Signs Temp Pulse Resp BP Pulse Ox 02/08/17 07:33 16 99 02/08/17 07:22 97.9 F 92 16 122/71 100 02/08/17 04:20 97.9 F 88 18 138/59 91 02/08/17 04:04 18 97 02/08/17 00:05 18 99 02/08/17 00:00 98.5 F 89 16 95/59 100 02/07/17 22:40 99 02/07/17 20:13 18 99 02/07/17 20:00 98.1 F 91 17 105/57 100 02/07/17 18:25 97.9 F 18 127/67 02/07/17 18:15 128/71 02/07/17 18:00 125/75 02/07/17 17:30 134/77 02/07/17 17:00 138/69 02/07/17 16:30 115/63 02/07/17 16:00 124/67 02/07/17 15:30 126/63 02/07/17 15:00 122/67 02/07/17 14:45 97.9 F 18 117/65 02/07/17 11:32 97.6 F 98 18 122/70 96 02/07/17 11:07 18 96 Intake and Output 02/07/17 02/08/17 02/08/17 23:59 07:59 15:59 Intake Total 200 / 200 420 / 420 Output Total 3600 / 3600 0 / 0 Balance -3400 / -3400 420 / 420 Intake: Oral 200 / 200 420 / 420 Output: Urine 0 / 0 0 / 0 Total Dialysis Output 3600 / 3600 Other: Blood Glucose* 204 84 Hemodialysis Net Fluid 3000 Removed (mL) - General Appearance General appearance: Present: well-developed EENT: Present: ATNC Neck: Present: supple Respiratory: Present: wheezing (right lung), course breath sounds (right lung) Cardiology: Present: no edema, normal S1, normal S2 Dialysis Vascular Access: Arteriovenous Fistula Gastrointestinal: Present: no tenderness, no guarding Integumentary: Present: warm and dry - Lab 02/08/17 06:06 02/08/17 06:06 Most recent lab results Calcium 8.3 mg/dL (8.6-10.8) L 02/08/17 06:06 - VTE Documentation of Mechanical Device: Graduated compression elastic hosiery Consult Discharge Plan - Plan Referrals: Jeromy Wall MD [Primary Care Provider] -
[2017-02-08 11:55] VITALS: BP 108/65
--- NOTE | 2017-02-08 13:42 | Discharge Summary ---
<MelchorTamara Morris Kami - Last Filed: 02/08/17 13:14> Date of Encounter: 02/08/17 Time of Encounter: 11:30 - Discharge Diagnosis (1) Tachycardia Priority: Primary Status: Acute Comments: -Upon arrival to the ED he was tachycardic at 105 - During the course of his admission, he remained slightly tachycardic (low 100s ) and was treated with Coreg 25mg PO BID. -For the past 24 hours, his pulse has been in the mid/low 90s (2) Elevated troponin Priority: Secondary Status: Chronic Comments: -It appears that he has a history of elevated troponins in the setting of ESRD on dialysis and chronic respiratory failure. - This elevated troponin of 0.24 was decreased since his prior admission on listed below: - 01/26: 0.28 -01/27: 0.36, 0.92 (3) Generalized weakness Priority: Secondary Status: Resolved Comments: - PT/OT consults were placed, however, consultation was unable to be completed due to his dialysis on Sunday. (4) ESRD (end stage renal disease) on dialysis Priority: Secondary Status: Chronic Comments: - Dialysis MWF, received dialysis here on Sunday. (5) CHF (congestive heart failure) Priority: Secondary Status: Chronic Qualifiers: Congestive heart failure type: systolic Congestive heart failure chronicity : chronic Qualified Code(s): I50.22 - Chronic systolic (congestive) heart failure (6) Lung cancer Priority: Secondary Status: Chronic Qualifiers: Laterality: right Lung location: hilum of lung Qualified Code(s): C34.01 - Malignant neoplasm of right main bronchus (7) DVT prophylaxis Priority: Secondary Status: Acute - Discharge Medications Prescriptions: Albuterol Neb [Proventil Neb] 2.5 mg IH Q4HR 30 Days Home Medications: Famotidine [Pepcid] 10 mg PO BID #60 tablet 07/03/15 [Rx] Albuterol Sulfate [Albuterol Inhaler] 2 puff IH Q4HR 07/29/15 [History] Budesonide/Formoterol 160/4.5 [Symbicort] 2 puff IH BIDR 07/29/15 [History] Gabapentin [Neurontin] 100 mg PO TID 07/29/15 [History] Glimepiride [Amaryl] 2 mg PO DAILY 07/29/15 [History] Calcium Acetate [Phos-LO] 667 mg PO TIDWM #90 capsule 10/02/15 [Rx] Carvedilol [Coreg] 25 mg PO BID #60 tablet 10/02/15 [Rx] Furosemide [Lasix] 40 mg PO DAILY 08/31/16 [History] Oxygen 3 l .ROUTE AD 08/31/16 [History] Albuterol Neb [Proventil Neb] 2.5 mg IH Q4HR PRN #30 vial.neb 09/03/16 [Rx] Multivitamin [Multivitamins] 1 cap PO DAILY 11/03/16 [History] Magic Mouthwash [Magic Mouthwash BLM] 10 ml PO QID PRN #240 ml 12/18/16 [Rx] Chlorpromazine HCl 25 mg PO Q8HR PRN #14 tablet 01/18/17 [Rx] Oxycodone HCl [Roxicodone 30 MG Immed Release] 30 mg PO Q6HR PRN #90 tab [Rx] Sucralfate [Carafate] 1 gm PO QIDAC #120 tablet 01/24/17 [Rx] Blood Sugar Diagnostic [Glucose Test Strip] 1 each ACHS #100 strip 01/30/17 [ Rx] Umeclidinium [place] [Incruse Ellipta] 62.5 mcg IH DAILY #1 blst.w.dev 01/30/17 [Rx] Albuterol Neb [Proventil Neb] 2.5 mg IH Q4HR 30 Days 02/08/17 [Rx] Allergies/Adverse Reactions: Allergies pollen extracts Allergy (Verified 02/06/17 11:54) Itching shellfish derived Adverse Reaction (Verified 02/06/17 11:54) Nausea IVP DYE Allergy (Intermediate, Uncoded 01/20/17 23:57) Vomiting Procedures/tests Complete & Pending: Procedures Performed prior 72 hours Category Date Time Status EKG [ECG 12 lead ECG] [ECG] Routine Y 02/07/17 10:06 Ordered Chest X-Ray 02/06/17 12:49 IMPRESSION: Improvement of mild interstitial opacities seen on prior examination suggesting improving pulmonary edema or atypical pneumonia. No acute focal process. D/ / Deion Velasco MD / Deion Velasco MD Interpreting Provider: Deion Velasco MD Date of admission: 02/06/17 14:23 Primary care physician: Jeromy Wall MD Consults: 02/06/17 16:32 Consult to Occupational Therapy [CONS] Routine Comment: Evaluate, develop and implement POC Consult to Physical Therapy [CONS] Routine Comment: Evaluate, develop and implement POC Consult to Toe Trimmer [CONS] Routine Reason for SW Consult: d/c planning 02/07/17 07:00 Consult to Nephrology [CONS] Routine Consulting Provider: Kidney Leslie/TAN/ANA LILIA/FRANK Reason for Consult: Continuity of HD Call Completed: No 02/07/17 10:30 Consult to Dialysis [CONS] ONCE Discharging clinician: Ever Davidson - Patient Status Disposition: Home Health Service Condition: Good Overall status at discharge: patient is progressing back to baseline - Discharge Instructions Instructions: Albuterol (By breathing), Chronic Obstructive Pulmonary Disease ( DC), Pneumonia (DC) Follow Up With: Jeromy Wall MD [Primary Care Provider] - 02/15/17 3:00 pm - Diet and Activity Activity: increase activity as tolerated Diet: advance to your usual diet Hospital course: Mr. Guardado is a 61 year old male admitted to [facility] on 02/06/2017 from his oncologist, Dr. Calero, with a PMHx of active squamous cell carcinoma of his right lung, COPD (on home 3L O2), CAD s/p CABG (2007), ischemic cariomyopathy, DMII, ESRD (Dialysis MWF), HTN, HLD and PAD. While undergoing evaluation at his oncologist, he was found to be hypotensive, tachycardic and dyspneic. He states that he was tachycardic (~120s) the day prior after his dialysis. He also admitted to generalized weakness of several days upon arrival. He denied any chest pain and any signs or symptoms of DVT/PE. Of note, he had been recently admitted to [facility] from 01/27-01/30 for worsening dyspnea and treated for possible pneumonia with Levaquin. During that admission and was found to be positive for Influenza A (not treated with Tamiflu). Upon arrival to the ED, he was tachycardic at 105, had a blood pressure of 130/ 73 and SpO2 of 97% (RA). Lab studies would reveal a chronically elevated troponin of 0.24, downtrending from his previous admission. EKG showed sinus tachycardia, without evidence ischemia when compared to previous EKG. He was admitted for generalized weakness and acute coronary syndrome rule out. During the course of his admission, he remained slightly tachycardic (low 100s) treated with Coreg 25mg PO BID. He was also treated with Symbicort and Proventil nebulizer throughout the course of his admission for his dyspnea. He received dialysis on Sunday. For the past 24 hours, his pulse has been in the mid/low 90s with blood pressures around 120-130/70-80. His breathing has much improved and is medically stable for discharge today. He is being discharged to home with Albuterol Nebulizers to use every 4 hours as needed. - Time Spent with Patient Total time spent providing and/or coordinating discharge services: - Constitutional Vitals: Temp Pulse Resp BP Pulse Ox 98.1 F 91 18 108/65 100 02/08/17 11:55 02/08/17 11:55 02/08/17 11:55 02/08/17 11:55 02/08/17 11:55 General appearance: Present: A&O X 3, pleasant - Head Head exam: Present: atraumatic, normal inspection, normocephalic - Eye Eye exam: Present: EOMI, PERRL - Neck Neck exam general surgery: Present: full ROM, trachea midline. Absent: lymphadenopathy, thyromegaly - Respiratory Respiratory exam: Present: prolonged expiratory phase, wheezes (bilaterally, worse at lung bases). Absent: chest wall tenderness, rales, respiratory distress, rhonchi, tachypnea - Cardiovascular Cardiovascular exam: Present: RRR, +S2, systolic murmur (systolic blowing murmur , most pronounced at the apex with radiation into the left axilla). Absent: diastolic murmur, irregular rhythm, rubs, tachycardia - GI/Abdominal GI/Abdominal exam: Present: normal bowel sounds, soft. Absent: tenderness, no peritoneal signs - Neurological Exam Neurological exam: Present: CN II-XII intact, oriented X3. Absent: facial droop , speech deficit - Skin Skin exam: Present: normal color. Absent: cyanosis Additional comments: Midline scar from previous lumbar spine surgery noted. - VTE Documentation of Mechanical Device: Graduated compression elastic hosiery <Ever Davidson - Last Filed: 02/08/17 18:04> Date of Encounter: 02/08/17 - Discharge Diagnosis (1) Elevated troponin Status: Acute (2) ESRD (end stage renal disease) on dialysis Status: Chronic (3) CHF (congestive heart failure) Status: Chronic Qualifiers: Congestive heart failure type: systolic Congestive heart failure chronicity : chronic Qualified Code(s): I50.22 - Chronic systolic (congestive) heart failure (4) Lung cancer Status: Chronic Qualifiers: Laterality: right Lung location: hilum of lung Qualified Code(s): C34.01 - Malignant neoplasm of right main bronchus (5) DVT prophylaxis Status: Acute (6) Generalized weakness Status: Resolved Procedures/tests Complete & Pending: Procedures Performed prior 72 hours Category Date Time Status EKG [ECG 12 lead ECG] [ECG] Routine Y 02/07/17 10:06 Ordered Date of admission: 02/06/17 14:23 Primary care physician: Jeromy Wall MD Consults: 02/06/17 16:32 Consult to Occupational Therapy [CONS] Routine Comment: Evaluate, develop and implement POC Consult to Physical Therapy [CONS] Routine Comment: Evaluate, develop and implement POC Consult to Toe Trimmer [CONS] Routine Reason for SW Consult: d/c planning 02/07/17 07:00 Consult to Nephrology [CONS] Routine Consulting Provider: Kidney Leslie/TAN/ANA LILIA/FRANK Reason for Consult: Continuity of HD Call Completed: No 02/07/17 10:30 Consult to Dialysis [CONS] ONCE Hospital course: Mr. Guardado is a 61 year old male - Time Spent with Patient Total time spent providing and/or coordinating discharge services: - Constitutional Vitals: Temp Pulse Resp BP Pulse Ox 98.1 F 91 18 108/65 100 02/08/17 11:55 02/08/17 11:55 02/08/17 11:55 02/08/17 11:55 02/08/17 11:55 - Attending Attestation I examined this patient and my medical decision-making was reviewed with the COCOA ROASTER/PA/Advanced Practice Nurse/Resident Physician. I agree with the documented findings, disposition and treatment plan as described except to the extent set forth below. Stable, patient at his baseline. D/W patient will discharge him today. PT tonio noted.
--- NOTE | 2017-02-08 14:03 | Physician Discharge Referral ---
Home Health/Hosp Referral Info Transfer to: Home Health Attending Provider: Ever Davidson MD Provider in Charge Post Discharge: PCP - Diagnosis (1) Tachycardia Priority: Primary Status: Acute (2) Elevated troponin Priority: Secondary Status: Chronic (3) Generalized weakness Priority: Secondary Status: Resolved (4) ESRD (end stage renal disease) on dialysis Priority: Secondary Status: Chronic (5) CHF (congestive heart failure) Priority: Secondary Status: Chronic (6) Lung cancer Priority: Secondary Status: Chronic (7) DVT prophylaxis Priority: Secondary Status: Acute - Respiratory Orders Oxygen / L per min (3L/min titrate to O2 sat greater than 95%) Smoking Cessation: Smoking cessation has been advised. For more information, call the [facility] [employer] Quit Line at 4-284-WBJG-NOW. - Diet/Nutrition Diet/Nutrition Orders: Regular - Activity Activity Orders: Up ad adiel - Services Needed Following services are medically necessary services: Nursing, Home Health Aide, Physical Therapy, Occupational Therapy - Transfer Medications Prescriptions: Albuterol Neb [Proventil Neb] 2.5 mg IH Q4HR 30 Days Home Medications: Famotidine [Pepcid] 10 mg PO BID #60 tablet 07/03/15 [Rx] Albuterol Sulfate [Albuterol Inhaler] 2 puff IH Q4HR 07/29/15 [History] Budesonide/Formoterol 160/4.5 [Symbicort] 2 puff IH BIDR 07/29/15 [History] Gabapentin [Neurontin] 100 mg PO TID 07/29/15 [History] Glimepiride [Amaryl] 2 mg PO DAILY 07/29/15 [History] Calcium Acetate [Phos-LO] 667 mg PO TIDWM #90 capsule 10/02/15 [Rx] Carvedilol [Coreg] 25 mg PO BID #60 tablet 10/02/15 [Rx] Furosemide [Lasix] 40 mg PO DAILY 08/31/16 [History] Oxygen 3 l .ROUTE AD 08/31/16 [History] Albuterol Neb [Proventil Neb] 2.5 mg IH Q4HR PRN #30 vial.neb 09/03/16 [Rx] Multivitamin [Multivitamins] 1 cap PO DAILY 11/03/16 [History] Magic Mouthwash [Magic Mouthwash BLM] 10 ml PO QID PRN #240 ml 02/20/17 [Rx] Chlorpromazine HCl 25 mg PO Q8HR PRN #14 tablet 01/18/17 [Rx] Oxycodone HCl [Roxicodone 30 MG Immed Release] 30 mg PO Q6HR PRN #90 tab [Rx] Sucralfate [Carafate] 1 gm PO QIDAC #120 tablet 01/24/17 [Rx] Blood Sugar Diagnostic [Glucose Test Strip] 1 each ACHS #100 strip 01/30/17 [ Rx] Umeclidinium [place] [Incruse Ellipta] 62.5 mcg IH DAILY #1 blst.w.dev 01/30/17 [Rx] Albuterol Neb [Proventil Neb] 2.5 mg IH Q4HR 30 Days 02/08/17 [Rx] Allergies/Adverse Reactions: Allergies pollen extracts Allergy (Verified 02/06/17 11:54) Itching shellfish derived Adverse Reaction (Verified 02/06/17 11:54) Nausea IVP DYE Allergy (Intermediate, Uncoded 01/20/17 23:57) Vomiting Certification: Further, I certify that my clinical findings support that this patient is homebound (i.e. absences from home require considerable and taxing effort and are for medical reasons or mormonism services or infrequently or short duration when for other reasons) because: Homebound Reason: Leaving home requires considerable and taxing effort due to condition Attestation: My signature below is to certify that this patient is under my care and that I, or nurse practitioner, or a physician's food trades assistants working with me, has a face-to -face encounter with this patient.
== END 2017-02-08 14:25 | disposition home health service (06) ==
LOC: 2ANU 11:48 → EMEROO 11:48 → 2ANU 15:55
PROVIDERS: ADMIT Internal Medicine Endocrinology, Diabetes & Metabolism; ATTEND Internal Medicine

== ENCOUNTER 2017-05-18 10:52 | Inpatient (IN) ==
--- NOTE | 2017-05-18 11:16 | Emergency Department Note ---
Disposition Clinical Impression: Shortness of breath Pneumonia Qualifiers: Pneumonia type: due to unspecified organism Laterality: bilateral Lung location : unspecified part of lung Qualified Code(s): J18.9 - Pneumonia, unspecified organism Pulmonary edema Qualifiers: Chronicity: acute Qualified Code(s): J81.0 - Acute pulmonary edema Acute on chronic renal failure Qualifiers: Acute renal failure type: unspecified Chronic kidney disease stage: on chronic dialysis Qualified Code(s): N17.9 - Acute kidney failure, unspecified; N18.9 - Chronic kidney disease, unspecified; Z99.2 - Dependence on renal dialysis Disposition: Admitted As Inpatient Condition: Undetermined Time of Disposition: 12:35 SOB HPI - General Chief Complaint: ED Shortness of Breath/Dyspnea Stated Complaint: short of breath Time Seen by Provider: 05/18/17 11:04 Source: patient, EMS Mode of arrival: EMS Limitations: no limitations Nursing Notes Reviewed: Yes Vital Signs Reviewed: Yes - History of Present Illness Patient is a 61-year-old male that presents the emergency department via EMS for shortness of breath. Patient states that he was at dialysis and came increase in the short of breath while in the waiting room. EMS states that he was 88% on room air when they arrived and they placed him on 2 L of oxygen with an albuterol nebulizer and his sats came up to 100%. Patient states that he has recently had a diagnosis of pneumonia. He says that he was put on Levaquin for about the past week. States he is still coughing up some brown stuff. Patient states he has had a fever with the shortness of breath. Patient denies any chest pain or hemoptysis. Patient normally dialyzes Sunday and Sunday. He was not able to start nor complete dialysis today the last complete dialysis session was on Sunday. - Related Data Home Medications Medication Instructions Recorded Confirmed Albuterol Sulfate [Albuterol 2 puff IH Q4HR 07/29/15 05/18/17 Inhaler] Budesonide/Formoterol 160/4.5 2 puff IH BIDR 07/29/15 05/18/17 [Symbicort] Gabapentin [Neurontin] 100 mg PO TID 07/29/15 05/18/17 Glimepiride [Amaryl] 2 mg PO DAILY 07/29/15 05/18/17 Furosemide [Lasix] 40 mg PO DAILY 08/31/16 05/18/17 Oxygen 2 l NS AD 08/31/16 05/18/17 Multivitamin [Multivitamins] 1 cap PO DAILY 11/03/16 05/18/17 levoFLOXacin [Levaquin] 250 mg PO Q48H 05/18/17 05/18/17 Previous Rx's Medication Instructions Recorded Famotidine [Pepcid] 10 mg PO BID #60 tablet 07/03/15 Calcium Acetate [Phos-LO] 667 mg PO TIDWM #90 capsule 10/02/15 Carvedilol [Coreg] 25 mg PO BID #60 tablet 10/02/15 Albuterol Neb [Proventil Neb] 2.5 mg IH Q4HR PRN #30 vial.neb 09/03/16 Magic Mouthwash [Magic Mouthwash 10 ml PO QID PRN #240 ml 12/18/16 BLM] Umeclidinium [place] [Incruse 62.5 mcg IH DAILY #1 blst.w.dev 01/30/17 Ellipta] Ondansetron [Zofran ODT] 8 mg SL Q4HR PRN #60 tab.rapdis 02/28/17 Docusate [Colace] 100 mg PO DAILY #20 capsule 03/02/17 Polyethylene Glycol 3350 [MiraLAX 1 scoop PO DAILY #510 gm 03/02/17 Powder Bulk 17.9 Oz] Dexamethasone 1 mg PO DAILY #14 tab 04/12/17 Megestrol Acetate [Megace] 800 mg PO DAILY #400 mls 04/12/17 Oxycodone HCl [Roxicodone 30 MG 30 mg PO Q6HR PRN #90 tab 05/14/17 Immed Release] Allergies Allergy/AdvReac Type Severity Reaction Status Date / Time pollen extracts Allergy Itching Verified 05/18/17 12:12 shellfish derived AdvReac Nausea Verified 05/18/17 12:12 IVP DYE Allergy Intermediate Vomiting Uncoded 01/20/17 23:57 All systems ED: reviewed and negative except as stated. Constitutional: Reports: fever Respiratory: Reports: dyspnea Past Medical History - Past Medical History Source: patient Medical history: Reports: arthritis, cancer, CHF, coronary artery disease, diabetes, dialysis, GERD, hyperlipidemia, hypertension, myocardial infarction, peripheral artery disease, renal disease, other Surgical history: Reports: angioplasty/stent, carotid endarterectomy, coronary bypass (CABG), orthopedic, other, other Psychiatric history: Reports: anxiety, depression - Social History Smoking Status: Former smoker Smokeless Tobacco Status: No (does not smoke) Alcohol use: Reports: none Drug use: Reports: none Physical Exam - General Limitations: no limitations General appearance: alert, in no apparent distress - Head Head exam: atraumatic, normocephalic - Neck Neck exam: Present: normal inspection, full ROM, trachea midline - Respiratory Respiratory exam: Present: wheezes (Bilateral wheezes), other. Absent: normal lung sounds bilaterally - Cardiovascular Cardiovascular exam: Present: normal rhythm, tachycardia, normal heart sounds, + S1, +S2 - Abdominal Exam Abdominal exam: Present: soft, Non-Tender, normal bowel sounds - Expanded Lower Extremity Exam Lower leg exam: Present: normal inspection, full ROM, swelling (Mild swelling) - Neurological Exam Neurological exam: Present: alert, oriented X3 - Psychiatric Psychiatric exam: Present: normal affect, normal mood - Skin Skin exam: Present: warm, dry, intact Course Vital Signs Temperature 97.6 F 05/18/17 10:53 Pulse Rate 135 05/18/17 10:53 Respiratory Rate 22 05/18/17 10:53 Blood Pressure 179/92 05/18/17 10:53 O2 Sat by Pulse Oximetry 100 05/18/17 10:53 Temperature 97.6 F 05/18/17 10:53 Pulse Rate 133 05/18/17 11:42 Respiratory Rate 20 05/18/17 12:13 Blood Pressure 139/62 05/18/17 11:42 O2 Sat by Pulse Oximetry 97 05/18/17 12:13 Oxygen Delivery Oxygen Delivery Nasal Cannula Shortness of Breath/Dyspnea - [facility] Narrative Medical decision making narrative: Patient is a 61-year-old male that presents to the emergency department via EMS for shortness of breath. Patient has known history of COPD and lung cancer. Due to the patient not being able to dialyze this morning and his current symptoms the patient will likely be admitted to the hospital. We have ordered imaging as well as laboratory tests. We will also give him a DuoNeb to help relieve his wrist breath. Patient's x-ray showed bilateral infiltrates. With the imaging findings patient's symptoms we will treat him with vancomycin and Zosyn and levofloxacin and admit the patient to the hospital. Patient had elevated troponin of 0.07 but upon reviewing the patient's previous laboratory results this is his baseline. When treating this to the patient's renal function and having to be on dialysis. Patient also has a BNP 2270. I spoke with Dr. Lyons and he has accepted him to his service. I also talked with Dr. Rubio the salesperson new cars and she will set up dialysis as an inpatient. - Medical Records Medical records reviewed: Yes I reviewed the patient's medical records. - Lab Data Lab results reviewed: Yes I reviewed the patient's lab results. Result diagrams: 05/18/17 11:28 05/18/17 11:28 Lab Results 05/18/17 05/18/17 05/18/17 Range/Units 11:28 11:28 11:28 WBC 10.6 (4.3-11.1) K/mcL RBC 3.08 L (4.19-5.50) M/mcL Hgb 8.5 L (12.9-16.9) g/dL Hct 28.6 L (37.5-50.1) % MCV 92.9 (83.0-100.0) fL MCH 27.6 L (28.0-33.3) pg MCHC 29.7 L (31.6-35.5) g/dL RDW 18.0 H (11.5-14.5) % Plt Count 275 (140-400) K/mcL MPV 9.6 (9.4-12.4) fL Immature Gran % 0.5 (0-4) % Seg Neutrophils % 85.9 % Lymphocytes % 6.9 % Monocytes % 5.3 % Eosinophils % 1.1 % Basophils % 0.3 % Neutrophils # 9.1 H (1.6-8.9) K/mcL Lymphocytes # 0.7 (0.6-4.6) K/mcL Monocytes # 0.6 (0.0-1.3) K/mcL Eosinophils # 0.1 (0.0-0.6) K/mcL Basophils # 0.0 (0.0-0.2) K/mcL Sodium 137 (136-145) mEq/L Potassium 3.6 (3.5-4.5) mEq/L Chloride 102 (98-109) mEq/L Carbon Dioxide 25 (19-29) mEq/L BUN 39 H (8-26) mg/dL Creatinine 3.65 H (0.72-1.25) mg/dL Est GFR ( Amer) 21 L (> 60) Est GFR (Non-Af Amer) 17 L (> 60) BUN/Creatinine Ratio 11 (6-26) Glucose 145 H (70-99) mg/dL Calculated Osmolality 296 (280-300) Lactic Acid (0.5-2.2) mmol/L Calcium 9.1 (8.6-10.8) mg/dL Troponin I 0.07 H* (0-0.03) ng/mL B-Natriuretic Peptide (0-100) pg/mL 05/18/17 05/18/17 Range/Units 11:28 12:05 WBC (4.3-11.1) K/mcL RBC (4.19-5.50) M/mcL Hgb (12.9-16.9) g/dL Hct (37.5-50.1) % MCV (83.0-100.0) fL MCH (28.0-33.3) pg MCHC (31.6-35.5) g/dL RDW (11.5-14.5) % Plt Count (140-400) K/mcL MPV (9.4-12.4) fL Immature Gran % (0-4) % Seg Neutrophils % % Lymphocytes % % Monocytes % % Eosinophils % % Basophils % % Neutrophils # (1.6-8.9) K/mcL Lymphocytes # (0.6-4.6) K/mcL Monocytes # (0.0-1.3) K/mcL Eosinophils # (0.0-0.6) K/mcL Basophils # (0.0-0.2) K/mcL Sodium (136-145) mEq/L Potassium (3.5-4.5) mEq/L Chloride (98-109) mEq/L Carbon Dioxide (19-29) mEq/L BUN (8-26) mg/dL Creatinine (0.72-1.25) mg/dL Est GFR ( Amer) (> 60) Est GFR (Non-Af Amer) (> 60) BUN/Creatinine Ratio (6-26) Glucose (70-99) mg/dL Calculated Osmolality (280-300) Lactic Acid 0.8 (0.5-2.2) mmol/L Calcium (8.6-10.8) mg/dL Troponin I (0-0.03) ng/mL B-Natriuretic Peptide 2270 H (0-100) pg/mL - Radiology Data Radiology results reviewed: Yes I reviewed the patient's radiology results. Chest X-Ray 05/18/17 11:10 IMPRESSION: 1. Bilateral interstitial lung infiltrates, likely related to pulmonary edema and less likely pneumonia. D/ / Adiel Cheng MD / Adiel Cheng MD Interpreting Provider: Adiel Cheng MD - EKG Data EKG attestation: Yes I reviewed and interpreted this EKG. EKG results narrative: EKG shows sinus tachycardia at a rate of 123 , VA interval 146, QRS duration 102 , QTC 397 with a normal axis. EKG was compared to previous on 02/06/17 there are no acute changes noted Attestation Statement - Attestation Attestation: I examined this patient and my medical decision-making was reviewed with the Resident Physician. I agree with the documented findings, disposition and treatment plan as described except to the extent set forth below. Patient emergency department with a chief complaint shortness of breath. Patient was sent from dialysis. He complained in the waiting room so they sent him here. He did not complete his dialysis. Does have a cough productive of sputum. He is recently been on Levaquin. On exam he is in no acute distress. He has diffuse rales, and wheezes worse on the right. Afebrile. Plan. Cardiac workup. He has bilateral infiltrates on his chest x-ray. Appears to be edema. It is asymmetric in the upper lobes. I believe he has an infiltrate on the right. Starting him on antibiotic. Will admit.
[2017-05-18 11:44] LABS: Basophils % 0.3 %; Eosinophils # 0.1 K/mcL (0.0-0.6); Eosinophils % 1.1 %; Hematocrit 28.6 % (37.5-50.1); Hemoglobin 8.5 g/dL (12.9-16.9); Immature Granulocytes % 0.5 % (0-4); Lymphocytes # 0.7 K/mcL (0.6-4.6); Lymphocytes % 6.9 %; Mean Corpuscular HGB Conc 29.7 g/dL (31.6-35.5); Mean Corpuscular Hemoglobin 27.6 pg (28.0-33.3); Mean Corpuscular Volume 92.9 fL (83.0-100.0); Mean Platelet Volume 9.6 fL (9.4-12.4); Monocytes # 0.6 K/mcL (0.0-1.3); Monocytes % 5.3 %; Neutrophils # 9.1 K/mcL (1.6-8.9); Platelet Count 275 K/mcL (140-400); Red Blood Count 3.08 M/mcL (4.19-5.50); Segmented Neutrophils % 85.9 %
[2017-05-18 11:58] LABS: Calcium 9.1 mg/dL (8.6-10.8); Potassium 3.6 mEq/L (3.5-4.5)
[2017-05-18] MEDS ORDERED: Ipratropium/Albuterol Neb 3 ML IH ONE (11:58)
[2017-05-18] MEDS ORDERED: Piperacillin/Tazobactam 3.375 GM in D5% in Water (Mini-Bag+) 100 ML IVPB ONE (12:01)
[2017-05-18] MEDS ORDERED: Levofloxacin 500 MG/100 ML 500 MG/100 ML BAG IVPB ONE (12:01)
[2017-05-18] MEDS ORDERED: Vancomycin (wt based) 1,000 MG VIAL IVPB ONE (12:01)
[2017-05-18] MEDS ORDERED: Vancomycin 750 MG in D5% in Water 250 ML IVPB ONE (12:11)
[2017-05-18] MEDS ORDERED: D5% in Water 1,000 ML IVC ONE (12:57)
--- NOTE | 2017-05-18 14:12 | Nephrology Consult Note ---
Date of Encounter: 05/18/17 Time of Encounter: 14:08 Assessment and Plan (1) End stage chronic kidney disease Current Visit: Yes Status: Chronic patient will undergo dialysis today. will improve volume overload. (2) Shortness of breath Current Visit: Yes Status: Acute tachycardic tacypneic cxr shows pulmonary edema and infiltrates outpatient treated with levaquin for pneumonia requiring 2L O2 likely septic ultrafiltration with goal of 3kg. plans as per primary. History of Present Illness - Reason for Consult Consult date: 05/18/17 end stage renal disease - Chief Complaint sob - History of Present Illness 61 M with PMH of lung cancer, COPD, recurrent PNAs and ESRD on HD M-W-F presenting to ED after being sent from dialysis unit where he initially presented for his routine HD. He was unable to have HD done as he became SOB. Per EMS, he was found to be hypoxic SPO2 88% put on 2L. He is followed by Dr. Veras. He is tachycardic, and tachypenic on presentation. CXR shows pulmonary edema and possible infiltrates. Pt seen and examined on arrival on the floor still somewhat SOB but able to speak in sentences. He denies any chest pain or diaphoresis. No fevers/ chills. Past Med Surg Social Fam HX - Past Medical History Medical history: arthritis, cancer, CHF, coronary artery disease, diabetes, dialysis, GERD, hyperlipidemia, hypertension, myocardial infarction, peripheral artery disease, renal disease, other Psychiatric history: anxiety, depression - Past Surgical History Surgical History: angioplasty/stent, carotid endarterectomy, coronary bypass ( CABG), orthopedic, other, other - Social History Smoking Status: Former smoker Smokeless Tobacco Status: No (does not smoke) Alcohol use: none Drug use: none - Family History Brother Adopted: No Family Member Ethnicity: Non- Living Status: Hx Family Cardiac Disorders: Yes Hx Family Respiratory Disorders: Yes (dad black lung) Hx Family Cancer: Yes (mother) Hx Family GI Disorders: No Hx Family Endocrine Disorder: Yes (sister) Hx Family Neuromuscular Disorders: No Hx Family Neurologic Disorders: No Hx Family HEENT Disorders: No Hx Family Autoimmune Disorders: No Mother Adopted: No Living Status: Hx Family Cardiac Disorders: No Hx Family Respiratory Disorders: No Hx Family Cancer: Yes Hx Family GI Disorders: No Hx Family Endocrine Disorder: No Hx Family Neuromuscular Disorders: No Hx Family Neurologic Disorders: No Hx Family HEENT Disorders: No Hx Family Autoimmune Disorders: No Father Adopted: No Family Member Ethnicity: Non- Living Status: Hx Family Cardiac Disorders: No Hx Family Respiratory Disorders: Yes Hx Family Cancer: No Hx Family GI Disorders: No Hx Family Endocrine Disorder: No Hx Family Neuromuscular Disorders: No Hx Family Neurologic Disorders: No Hx Family HEENT Disorders: No Hx Family Autoimmune Disorders: No Sister Race: Family Member Ethnicity: Non- Living Status: Still Living Hx Family Cardiac Disorders: Yes (HD) Hx Family Respiratory Disorders: Yes (COPD) Hx Family Endocrine Disorder: Yes (Thyroid disease) Medications and Allergies Famotidine [Pepcid] 10 mg PO BID #60 tablet 07/03/15 [Rx] Albuterol Sulfate [Albuterol Inhaler] 2 puff IH Q4HR 07/29/15 [History] Budesonide/Formoterol 160/4.5 [Symbicort] 2 puff IH BIDR 07/29/15 [History] Gabapentin [Neurontin] 100 mg PO TID 07/29/15 [History] Glimepiride [Amaryl] 2 mg PO DAILY 07/29/15 [History] Calcium Acetate [Phos-LO] 667 mg PO TIDWM #90 capsule 10/02/15 [Rx] Carvedilol [Coreg] 25 mg PO BID #60 tablet 10/02/15 [Rx] Furosemide [Lasix] 40 mg PO DAILY 08/31/16 [History] Oxygen 2 l NS AD 08/31/16 [History] Albuterol Neb [Proventil Neb] 2.5 mg IH Q4HR PRN #30 vial.neb 09/03/16 [Rx] Multivitamin [Multivitamins] 1 cap PO DAILY 11/03/16 [History] Magic Mouthwash [Magic Mouthwash BLM] 10 ml PO QID PRN #240 ml 12/18/16 [Rx] Umeclidinium [place] [Incruse Ellipta] 62.5 mcg IH DAILY #1 blst.w.dev 01/30/17 [Rx] Ondansetron [Zofran ODT] 8 mg SL Q4HR PRN #60 tab.rapdis 02/28/17 [Rx] Docusate [Colace] 100 mg PO DAILY #20 capsule 03/02/17 [Rx] Polyethylene Glycol 3350 [MiraLAX Powder Bulk 17.9 Oz] 1 scoop PO DAILY #510 gm 03/02/17 [Rx] Dexamethasone 1 mg PO DAILY #14 tab 04/12/17 [Rx] Megestrol Acetate [Megace] 800 mg PO DAILY #400 mls 04/12/17 [Rx] Oxycodone HCl [Roxicodone 30 MG Immed Release] 30 mg PO Q6HR PRN #90 tab [Rx] levoFLOXacin [Levaquin] 250 mg PO Q48H 05/18/17 [History] Allergies pollen extracts Allergy (Verified 05/18/17 12:12) Itching shellfish derived Adverse Reaction (Verified 05/18/17 12:12) Nausea IVP DYE Allergy (Intermediate, Uncoded 01/20/17 23:57) Vomiting Review of Systems All Systems: reviewed and no additional remarkable complaints except as stated Exam - Vital Signs Vital signs: Initial Vital Signs Temp Pulse Resp BP Pulse Ox 97.6 F 135 22 179/92 100 05/18/17 10:53 05/18/17 10:53 05/18/17 10:53 05/18/17 10:53 05/18/17 10:53 Vital Signs - Last 8 Hours Resp BP 05/18/17 13:41 20 123/69 - General Appearance General appearance: chronically ill, frail EENT: PERRL Neck: no JVD, supple Additional Comments: coarse breath sounds anteriorly Cardiology: no edema, rapid rhythm (sinus tachycardia) Gastrointestinal: normoactive bowel sounds, no tenderness, no guarding Integumentary: no rash, warm and dry Neurologic: alert and oriented x3 Musculoskeletal: no deformities, no erythema, no cyanosis Psychiatric: mood/affect appropriate, cooperative Results - Lab Results 05/18/17 11:28 05/18/17 11:28 Most recent lab results Calcium 9.1 mg/dL (8.6-10.8) 05/18/17 11:28 Consult Discharge Plan - Plan Referrals: Jeromy Wall MD [Primary Care Provider] -
[2017-05-18] MEDS ORDERED: *HR* Morphine 2 MG/ML SYRINGE IVP PRN (14:34)
[2017-05-18] MEDS ORDERED: Ondansetron 4 MG/2 ML VIAL IVP PRN (14:34)
[2017-05-18] MEDS ORDERED: *HR* HYDROcodone/Acet 5/325 mg TABLET PO PRN (14:34)
[2017-05-18] MEDS ORDERED: Acetaminophen 325 MG TABLET PO PRN (14:34)
[2017-05-18] MEDS ORDERED: Naloxone 0.4 MG/ML INJ IVP PRN (14:34)
[2017-05-18] MEDS ORDERED: *HR* Dextrose 50 % in Water (Syg) 50 ML SYRINGE IVP PRN (14:39)
[2017-05-18] MEDS ORDERED: Dextrose Gel 15 GM PO PRN ×2 (14:39)
[2017-05-18] MEDS ORDERED: D5% in Water 1,000 ML IVC PRN (14:39)
[2017-05-18] MEDS ORDERED: Magic Mouthwash 10 ML UD Cup PO PRN (14:46)
--- NOTE | 2017-05-18 14:57 | Internal Med History&Physical ---
<EnriquetaisrealrossyMilind stallings - Last Filed: 05/18/17 15:44> Date of Encounter: 05/18/17 Time of Encounter: 13:45 Assessment and Plan (1) Sepsis Current visit: Yes Status: Acute Patient presents with sepsis symptoms on admission to ED: HR is currently 127- 129, RR is 22, troponin was 0.07, lactic acid was 0.8, and patient has suspected infection related to symptoms and CXR so he meets sepsis criteria. Patient placed on continuous cardiac telemetry, supplemental O2 titration if SPO2 less than 92% as well as continuous SPO2 monitoring, timed lactic acids, CT of chest without contrast, continuation of IV antibiotics (vancomycin and pharmacy dosed, Zosyn 3.375 gm Q8, and Levaquin 750 mg Q24), sputum culture ordered. Follow-up labs ordered. Patient placed as falls precautions/up with assist/bed rest with bathroom privileges with assist only due to SOB. Patient to be monitored closely for signs of increased cardiac and/or respiratory distress. Qualifiers: Sepsis type: sepsis due to unspecified organism Qualified Code(s): A41.9 - Sepsis, unspecified organism (2) Pneumonia Current visit: Yes Status: Acute Patient presents with suspected pneumonia based on CXR today and history of previous pneumonia diagnosis and treatment with PO levaquin. Patient reports he doesn't feel that the levaquin was working. IV antibiotics ordered (vancomycin with pharmacy dosing, Zosyn 3.375 GM every 8, and Levaquin 750 MG daily). Sputum culture ordered as well as follow-up labs. Supplemental O2 and SpO2 monitoring ordered. Will monitor patient and vital signs. Qualifiers: Pneumonia type: due to unspecified organism Laterality: bilateral Lung location: unspecified part of lung Qualified Code(s): J18.9 - Pneumonia, unspecified organism (3) Shortness of breath Current visit: Yes Status: Acute Patient presents with SOB related to acute exacerbation of COPD and in conjunction with suspected pneumonia. Supplemental O2 with titration if SpO2 < 92% as well as continuous SpO2 monitoring. DuoNebs ordered Q4. (4) Acute exacerbation of chronic obstructive airways disease Current visit: Yes Status: Acute Patient presents with acute exacerbation of COPD in conjunction with suspected pneumonia. Supplemental O2 with titration if SpO2 < 92% as well as continuous SpO2 monitoring. DuoNebs ordered Q4. (5) Elevated troponin Current visit: Yes Status: Acute Patient presents with troponin level of 0.07 on first blood draw. Will trend tropnins x2. Patient placed on continuous cardiac telemetry and will be monitored closely. (6) End stage chronic kidney disease Current visit: Yes Status: Chronic Patient presents with chronic end stage renal disease requiring dialysis. Patient was supposed to be dialyzed today but became SOB prior to having his dialysis and came to ED. Nephrology consult placed to determine patient's dialysis while inpatient. Renal diet ordered with 1.5L daily fluid restriction. Monitor I&O and daily weight. (7) Diabetes mellitus Current visit: Yes Status: Chronic Patient presents with history of diabetes controlled with oral hyperglycemics. We will hold patient's oral medications and order low-dose correction insulin sliding scale and hypoglycemic protocol. Blood glucose monitoring before meals at bedtime. A1c ordered. Qualifiers: Diabetes mellitus type: type 2 Diabetes mellitus complication status: with kidney complications Diabetes mellitus complication detail: with chronic kidney disease Diabetes mellitus fdc insulin use: without moth exterminator use Chronic kidney disease stage: on chronic dialysis Qualified Code(s): E11.22 - Type 2 diabetes mellitus with diabetic chronic kidney disease; N18.6 - End stage renal disease; Z99.2 - Dependence on renal dialysis (8) GERD (gastroesophageal reflux disease) Current visit: Yes Status: Chronic Patient presents with chronic history of gastroesophageal reflux disease. PO Protonix 40 mg daily ordered as well as IV Zofran PRN. Qualifiers: Esophagitis presence: without esophagitis Qualified Code(s): K21.9 - Gastro -esophageal reflux disease without esophagitis (9) HLD (hyperlipidemia) Current visit: Yes Status: Chronic Patient presents with history of hyperlipidemia. Patient does not currently take a statin. Lipid panel ordered. Will consider adding Lipitor daily based in Lipid panel results. Qualifiers: Hyperlipidemia type: mixed hyperlipidemia Qualified Code(s): E78.2 - Mixed hyperlipidemia (10) HTN (hypertension) Current visit: Yes Status: Chronic Patient presents with history of chronic HTN. Will continue patient's Coreg once he is dialyzed due to his reporting that if he takes it prior to dialysis he becomes hypotensive. Qualifiers: Hypertension type: essential hypertension Qualified Code(s): I10 - Essential (primary) hypertension (11) DVT prophylaxis Current visit: Yes Status: Acute Patient was placed on DVT prophylaxis due to current admission protocol and bedrest status. Bilateral SCDs ordered for patient's LEs. Internal Medicine - H&P: HPI Chief complaint: SOB/Dyspnea Admitted From: Emergency Dept Plans for Post Hospital Care: Home History of present illness: Mr. Guardado is a 61 year old male who presents from the ED with chief complaint of shortness of breath and dyspnea for the past two weeks that he states became progressively worse. Patient reports that he was diagnosed with pneumonia within the past two weeks and placed on PO levaquin which he states he feels is not working. He reports he only has a few doses left to take. He states that he had a fever of 100.5 as well as chills, but denies vomiting, weakness, dizziness , pre-syncope, syncope, headache, or abdominal pain. CXR today shows bilateral interstitial lung infiltrates likely related to pulmonary edema and less likely pneumonia. Patient's medical history includes arthritis, cancer, CHF, CAD, diabetes controlled with oral hyperglycemics, CKG requiring dialysis, GERD, HLD , HTN, MD, and PAD. Patient was former smoker reporting he smoked 1/2-2 packs per day but quit one year ago. Patient denies any history of DVTs or PEs. Patient's HR is currently 127-129, RR is 22, troponin was 0.07, lactic acid was 0.8, and patient has suspected infection related to symptoms and CXR so he meets sepsis criteria. Patient placed on continuous cardiac telemetry, supplemental O2 titration if SPO2 less than 92% as well as continuous SPO2 monitoring, timed lactic acids, CT of chest without contrast, continuation of IV antibiotics (vancomycin and pharmacy dosed, Zosyn 3.375 gm Q8, and Levaquin 750 mg Q24), sputum culture ordered. Patient is due for dialysis today, so consult placed for nephrology to set up patient's dialysis. Patient placed on renal diet with fluid restriction of 1.5L daily. Will continue patient's lasix daily PO. PO Protonix 40 mg ordered for patient's GERD. Follow-up labs ordered and troponins to be trended. Patient is at high risk for infection and sepsis and will be placed as inpatient status. Patient to be monitored closely for signs of increased cardiac and/or respiratory distress. Time spent with patient > 40 minutes. Past Med Surg Social Fam HX - Past Medical History Source: patient Medical history: arthritis, cancer, CHF, coronary artery disease, diabetes, dialysis, GERD, hyperlipidemia, hypertension, myocardial infarction, peripheral artery disease, renal disease, other Psychiatric history: anxiety, depression - Past Surgical History Surgical History: angioplasty/stent, carotid endarterectomy (Bilateral), coronary bypass (CABG) (x6), orthopedic, other, other - Social History Smoking Status: Former smoker Packs per day: 1 1/2 - 2 PPD, reports quitting 1 year ago Smokeless Tobacco Status: No (does not smoke) Alcohol use: none Drug use: none Current living situation: Home Activity Level: Independent ambulation Recent Out of Country Travel Within the Last 8 Weeks: No Exposure or Possible Exposure to Illness During Travel: No - Family History Brother Adopted: No Race: Family Member Ethnicity: Non- Living Status: Still Living Hx Family Cardiac Disorders: Yes (HD) Mother Adopted: No Race: Family Member Ethnicity: Non- Living Status: Age at : 54 Cause of : Lung cancer Hx Family Cardiac Disorders: Yes (HTN) Hx Family Respiratory Disorders: Yes (Lung cancer) Hx Family Cancer: Yes (Lung) Hx Family Endocrine Disorder: Yes (Thyroid disease) Father Adopted: No Race: Family Member Ethnicity: Non- Living Status: Age at : 79 Cause of : Black lung Hx Family Cardiac Disorders: Yes (HD) Hx Family Respiratory Disorders: Yes (Black lung) Sister Race: Family Member Ethnicity: Non- Living Status: Still Living Hx Family Cardiac Disorders: Yes (HD) Hx Family Respiratory Disorders: Yes (COPD) Hx Family Endocrine Disorder: Yes (Thyroid disease) Internal Medicine - H&P: Meds Famotidine [Pepcid] 10 mg PO BID #60 tablet 07/03/15 [Rx] Albuterol Sulfate [Albuterol Inhaler] 2 puff IH Q4HR 07/29/15 [History] Budesonide/Formoterol 160/4.5 [Symbicort] 2 puff IH BIDR 07/29/15 [History] Gabapentin [Neurontin] 100 mg PO TID 07/29/15 [History] Glimepiride [Amaryl] 2 mg PO DAILY 07/29/15 [History] Calcium Acetate [Phos-LO] 667 mg PO TIDWM #90 capsule 10/02/15 [Rx] Carvedilol [Coreg] 25 mg PO BID #60 tablet 10/02/15 [Rx] Furosemide [Lasix] 40 mg PO DAILY 08/31/16 [History] Oxygen 2 l NS AD 08/31/16 [History] Albuterol Neb [Proventil Neb] 2.5 mg IH Q4HR PRN #30 vial.neb 09/03/16 [Rx] Multivitamin [Multivitamins] 1 cap PO DAILY 11/03/16 [History] Magic Mouthwash [Magic Mouthwash BLM] 10 ml PO QID PRN #240 ml 12/18/16 [Rx] Umeclidinium [place] [Incruse Ellipta] 62.5 mcg IH DAILY #1 blst.w.dev 01/30/17 [Rx] Ondansetron [Zofran ODT] 8 mg SL Q4HR PRN #60 tab.rapdis 02/28/17 [Rx] Docusate [Colace] 100 mg PO DAILY #20 capsule 03/02/17 [Rx] Polyethylene Glycol 3350 [MiraLAX Powder Bulk 17.9 Oz] 1 scoop PO DAILY #510 gm 03/02/17 [Rx] Dexamethasone 1 mg PO DAILY #14 tab 04/12/17 [Rx] Megestrol Acetate [Megace] 800 mg PO DAILY #400 mls 04/12/17 [Rx] Oxycodone HCl [Roxicodone 30 MG Immed Release] 30 mg PO Q6HR PRN #90 tab [Rx] levoFLOXacin [Levaquin] 250 mg PO Q48H 05/18/17 [History] Allergies pollen extracts Allergy (Verified 05/18/17 12:12) Itching shellfish derived Adverse Reaction (Verified 05/18/17 12:12) Nausea IVP DYE Allergy (Intermediate, Uncoded 01/20/17 23:57) Vomiting All Systems PM: A 10-system review of systems was performed and is negative for pertinent findings except as documented above in the HPI. - Constitutional Constitutional: as per HPI, chills, fever(s), no night sweats - EENT Eyes: no change in vision, no discharge, no pain, no photophobia Ears: no ear discharge, no ear pain, no tinnitus Nose, mouth and throat: no dysphagia, no nasal discharge, no neck pain, no sore throat - Breasts Breasts: as per HPI - Cardiovascular Cardiovascular ROS IM: as per HPI, dyspnea - Respiratory Respiratory: as per HPI, dyspnea - Gastrointestinal Gastrointestinal: as per HPI, nausea, no abdominal pain, no diarrhea, no hematemesis, no hematochezia, no melena, no vomiting - Genitourinary Genitourinary ROS male: as per HPI - Musculoskeletal Musculoskeletal ROS IM: no numbness, no tingling - Integumentary Integumentary IM: no rash, no unusual bruising - Neurological Neurological ROS: no confusion, no convulsions, no focal weakness, no numbness, no tingling, no tremor(s) - Psychiatric Psychiatric: as per HPI - Endocrine Endocrine IM: as per HPI - Hematologic/Lymphatic Hematologic/Lymphatic: no easy bruising - Allergic/Immunologic Allergic/Immunologic: as per HPI - Constitutional Vitals: Temp Pulse Resp BP Pulse Ox 97.8 F 127 18 146/87 96 05/18/17 13:55 05/18/17 13:55 05/18/17 13:55 05/18/17 13:55 05/18/17 13:55 Internal Med - H&P Results - Labs CBC & Chem 7: 05/18/17 11:28 05/18/17 11:28 - EKG Data EKG shows normal: sinus rhythm Rate: tachycardia - EKG Data Prior EKG available for review: yes EKG comments: 05/18/17 15:18 EKG dated 02/06/17 shows atrial tachycardia with ST deviation and moderate T- wave abnormality. Consider lateral ischemia. EKG dated 05/18/17 shows sinus tachycardia with incomplete right bundle branch block, minimal voltage criteria for LVH (consider normal variant), Minimal ST depression. - Diagnostic Studies Chest x-ray Additional comments: Impressions Chest X-Ray 05/18/17 11:10 IMPRESSION: 1. Bilateral interstitial lung infiltrates, likely related to pulmonary edema and less likely pneumonia. D/ / Adiel Cheng MD / Adiel Cheng MD Interpreting Provider: Adiel Cheng MD <Alexander Lopez - Last Filed: 05/18/17 15:46> Date of Encounter: 05/18/17 Internal Medicine - H&P: HPI History of present illness: Mr. Guardado is a 61 year old male All Systems PM: A 10-system review of systems was performed and is negative for pertinent findings except as documented above in the HPI. - Constitutional Vitals: Temp Pulse Resp BP Pulse Ox 97.8 F 127 18 146/87 96 05/18/17 13:55 05/18/17 13:55 05/18/17 13:55 05/18/17 13:55 05/18/17 13:55 Internal Med - H&P Results - Labs CBC & Chem 7: 05/18/17 11:28 05/18/17 11:28 - Attending Attestation I have independently seen, and examined this patient. I reviewed electronic medical record. I have discussed the plan of care with the patient and EXPLOSIVES DETONATOR 61-year-old male with past medical history of coronary artery disease status post CABG, end-stage renal disease on hemodialysis 3 times a week, squamous cell lung cancer, diabetes mellitus, depression and anxiety, peripheral artery disease. Patient presented to the ER with complaints of shortness of breath during hemodialysis today. 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 He reports he continues to have shortness of breath and cough productive of brownish phlegm. He denies fever or chills. He denies ankle swelling, orthopnea or PND. He has no abdominal or genitourinary symptoms. On examination he is afebrile but tachycardic heart rate in the 120s not in any form of distress, able to speak full sentences. Chest exam is significant for bilateral diffuse transmitted breath sounds. No significant crackles or rhonchi heard. Abdomen is benign and no pedal edema on lower extremities. Labs and imaging reviewed hemoglobin and creatinine at baseline, BNP elevated creatinine 2000 chronic lactate is normal elevated troponin is chronic. Chest x -ray shows bilateral interstitial infiltrates which could be pulmonary edema or pneumonia. Patient will be admitted and managed for sepsis (he meets sepsis criteria with tachycardia, tachypnea, and the suspected source. In reviewing dual Pseudomonas coverage and vancomycin, obtain chest CT due to history of malignancy and radiation therapy, send sputum culture, and follow blood culture. Continue home medications. 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
[2017-05-18] MEDS ORDERED: Vancomycin 750 MG in D5% in Water 250 ML IVPB SCH (15:00)
[2017-05-18] MEDS: Ipratropium/Albuterol Neb 3 ML IH SCH ×3 (15:38→23:12)
[2017-05-18 16:00] LABS: Hepatitis B Surface Antibody 11.28 mIU/mL; Hepatitis B Surface Antigen Nonreactive (Nonreactive)
--- NOTE | 2017-05-18 16:00 | Electrocardiograph Report ---
[place] [id number] Test Date: 2017-05-18 Pat Name: Dario Guardado Department: [id number] Room: 2A Gender: M [employer] Supervisor: ODETTE : 1955 Requested By: Barbara See Order Number: [id number] Reading MD: Ligia Grant Measurements Intervals [place] Rate: 123 P: 56 IN: 146 QRS: 57 QRSD: 102 T: 58 QT: 324 QTc: 397 Interpretive Statements SINUS TACHYCARDIA INCOMPLETE RIGHT BUNDLE BRANCH BLOCK MINIMAL VOLTAGE CRITERIA FOR LVH MINIMAL ST DEPRESSION ABNORMAL RHYTHM ECG Electronically Signed On 05-18-2017 15:58:47 EDT by Ligia Grant
[2017-05-18] MEDS: *HR* OxyCODONE Immed Rel 15 MG TABLET PO PRN ×2 (16:15→22:32)
[2017-05-18] MEDS: Gabapentin 100 MG CAPSULE PO SCH ×2 (16:15→21:16)
[2017-05-18] MEDS ORDERED: 0.9 % Sodium Chloride 250 ML IVC PRN (16:38)
[2017-05-18] MEDS ORDERED: 0.9 % Sodium Chloride 1,000 ML PRIME SCH (16:45)
[2017-05-18] MEDS: Insulin LISPRO 300 UNITS/3 ML VIAL SQ SCH ×2 (18:20→22:33)
[2017-05-18] MEDS: Calcium Acetate 667 MG CAPSULE PO SCH (18:21)
[2017-05-19] MEDS ORDERED: Mag Hydrox/Al Hydrox/Simeth 30 ML UDC PO PRN (00:04)
[2017-05-19] MEDS: Piperacillin/Tazobactam 3.375 GM in D5% in Water (Mini-Bag+) 100 ML IVPB SCH ×4 (00:06→23:49)
[2017-05-19 01:37] LABS: Basophils % 0.3 %; Eosinophils # 0.2 K/mcL (0.0-0.6); Eosinophils % 1.7 %; Hematocrit 29.3 % (37.5-50.1); Hemoglobin 8.8 g/dL (12.9-16.9); Immature Granulocytes % 0.5 % (0-4); Lymphocytes # 0.6 K/mcL (0.6-4.6); Mean Corpuscular Hemoglobin 28.2 pg (28.0-33.3); Mean Corpuscular Volume 93.9 fL (83.0-100.0); Mean Platelet Volume 11.4 fL (9.4-12.4); Monocytes # 0.6 K/mcL (0.0-1.3); Monocytes % 6.2 %; Neutrophils # 7.5 K/mcL (1.6-8.9); Platelet Count 218 K/mcL (140-400); Red Blood Count 3.12 M/mcL (4.19-5.50); Red Cell Distribution Width 18.3 % (11.5-14.5); Segmented Neutrophils % 84.3 %
[2017-05-19 01:47] LABS: INR 1.5; Prothrombin Time 16.4 Seconds (9.4-12.1)
[2017-05-19 01:49] LABS: Activated Partial Thrombo Time 29.3 Seconds (26.0-36.0)
[2017-05-19 01:54] LABS: Hemoglobin A1C 4.8 %
[2017-05-19 02:26] LABS: Calcium 9.6 mg/dL (8.6-10.8); Chol/HDL Ratio 2.6 (0-4.9); Magnesium 1.9 mg/dL (1.6-2.6)
[2017-05-19 02:29] LABS: Potassium 4.7 mEq/L (3.5-4.5)
[2017-05-19] MEDS: Ipratropium/Albuterol Neb 3 ML IH SCH ×6 (04:11→23:27)
[2017-05-19] MEDS: *HR* OxyCODONE Immed Rel 15 MG TABLET PO PRN ×3 (05:31→17:45)
[2017-05-19] MEDS: Insulin LISPRO 300 UNITS/3 ML VIAL SQ SCH ×4 (08:47→21:29)
[2017-05-19] MEDS: Megestrol Acetate 400 MG/10 ML UDC PO SCH (08:47)
[2017-05-19] MEDS: Multivit/Ca/Min/Fe/FA 1 TAB TABLET PO SCH (08:47)
[2017-05-19] MEDS: Gabapentin 100 MG CAPSULE PO SCH ×3 (08:47→21:29)
[2017-05-19] MEDS: Calcium Acetate 667 MG CAPSULE PO SCH ×3 (08:47→16:51)
[2017-05-19] MEDS ORDERED: Levalbuterol Neb 1.25 MG/3 ML IH PRN (08:48)
[2017-05-19] MEDS ORDERED: Furosemide 40 MG TABLET PO SCH (09:00)
[2017-05-19] MEDS ORDERED: Polyethylene Glycol 3350 255 GM POWDER PO SCH (09:00)
--- NOTE | 2017-05-19 09:21 | Internal Med Progress Note ---
Date of Encounter: 05/19/17 Time of Encounter: 09:19 - Assessment and plan (1) COPD exacerbation Current Visit: No Status: Acute Assessment and plan: Acute COPD exacerbation secondary to sepsis due to healthcare associated pneumonia present upon admission/possible right lung postobstructive pneumonia related to malignancy Currently hypotensive Continue Levaquin and Zosyn day 2 May discontinue vancomycin if blood pressure improves Stop Lasix, start IV fluids Discontinue dexamethasone, start Solu-Medrol, continue oxygen therapy (2) Lung cancer Current Visit: No Status: Chronic Assessment and plan: 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 Qualifiers: Laterality: right Lung location: hilum of lung Qualified Code(s): C34.01 - Malignant neoplasm of right main bronchus (3) ESRD (end stage renal disease) on dialysis Current Visit: No Status: Chronic Assessment and plan: Continue hemodialysis (4) Elevated troponin Current Visit: No Status: Chronic Assessment and plan: The patient has chronically elevated troponins likely related to end-stage renal disease, no active typical chest pain (5) Pneumonia Current Visit: Yes Status: Acute Qualifiers: Pneumonia type: due to unspecified organism Laterality: bilateral Lung location: unspecified part of lung Qualified Code(s): J18.9 - Pneumonia, unspecified organism (6) Type 2 diabetes mellitus Current Visit: No Status: Chronic Assessment and plan: Continue insulin sliding scale Qualifiers: Diabetes mellitus complication status: with circulatory complication Diabetes mellitus complication detail: with other circulatory complications Qualified Code(s): E11.59 - Type 2 diabetes mellitus with other circulatory complications - Subjective Interval history: The patient is feeling less short of breath but is still bringing up yellowish phlegm. Complains of right pleuritic-type of pain, had fevers at home, denies any abdominal pain, no diarrhea - Constitutional Vitals: Temp Pulse Resp BP Pulse Ox 98.7 F 90 18 74/56 97 05/19/17 07:54 05/19/17 07:54 05/19/17 07:54 05/19/17 08:54 05/19/17 07:54 General appearance: Present: A&O X 3 - Head Head exam: Present: atraumatic, normocephalic - Eye Eye exam: Present: PERRL, conjuntiva pink, sclera anicteric Pupils: Present: PERRL - Neck Neck exam general surgery: Present: supple, trachea midline. Absent: lymphadenopathy - Respiratory Respiratory exam: Present: CTAB, rales, wheezes (Diffuse wheezing and crackles mostly on the right upper lung field). Absent: accessory muscle use, rhonchi - Cardiovascular Cardiovascular exam: Present: RRR, +S1, +S2. Absent: diastolic murmur, gallop, rubs, systolic murmur - GI/Abdominal GI/Abdominal exam: Present: normal bowel sounds, soft, no peritoneal signs. Absent: distended, tenderness - Extremities Exam Extremities exam: Present: warm, radial pulses palpable and symetrical. Absent : calf tenderness, cyanotic, pedal edema - Neurological Exam Neurological exam: Present: CN II-XII intact, oriented X3, no focal deficits. Absent: pronater drift, facial droop, speech deficit - Skin Skin exam: Present: dry, intact Additional comments: Right upper extremity AV fistula with good thrill Internal Medicine: Result - Labs CBC & Chem 7: 05/19/17 00:49 05/19/17 00:49 Labs: Short CBC 05/19/17 Range/Units 00:49 WBC 8.9 (4.3-11.1) K/mcL Hgb 8.8 L (12.9-16.9) g/dL Hct 29.3 L (37.5-50.1) % Plt Count 218 (140-400) K/mcL Neutrophils # 7.5 (1.6-8.9) K/mcL BMP 05/19/17 00:49 Sodium 139 Potassium 4.7 H D Chloride 100 Carbon Dioxide 26 BUN 19 D Creatinine 2.49 H Glucose 51 L Calcium 9.6 Cardiac Enzymes 05/19/17 Range/Units 00:49 Troponin I 0.21 H* (0-0.03) ng/mL - ABG Interpretation ABG results: PT/INR, D-dimer PT 16.4 Seconds (9.4-12.1) H 05/19/17 00:49 - Impressions Impressions Chest CT 05/18/17 15:30 IMPRESSION: 1. Persistent right perihilar opacity, likely the site of the patient's primary tumor, with interval progression of reticulonodular and ground-glass opacity throughout the right upper lobe, which while could represent postobstructive pneumonia, is concerning for lymphangitic spread of tumor. 2. New 10 mm subpleural nodule within the anterior right upper lobe is concerning for intra pulmonary metastatic disease. 3. New small bilateral pleural effusions, right greater than left, with new reticulonodular ground-glass opacity throughout the right middle lobe and right lower lobe, which while could represent a combination of pulmonary edema and superimposed pneumonia, the possibility of lymphangitic spread of tumor is raised. 4. Stable mild mediastinal lymphadenopathy. RECOMMENDATIONS: Suggest appropriate clinical treatment, and continued chest CT imaging follow-up as per oncologic protocol. D/ / 05/18/2017 16:16:15 Jessee Rockwell MD / bcarter Interpreting Provider: Jessee Rockwell MD Consult Discharge Plan - Plan Referrals: Jeromy Wall MD [Primary Care Provider] -
[2017-05-19] MEDS ORDERED: 0.9 % Sodium Chloride 1,000 ML IVC SCH (09:30)
--- NOTE | 2017-05-19 13:17 | Nephrology Progress Note ---
Date of Encounter: 05/19/17 Time of Encounter: 11:00 - Assessment and Plan (1) End stage chronic kidney disease Current Visit: Yes Status: Chronic s/p HD yesterday with none planned till sunday Careful and gentle volume repletion while hypotensive advised (2) Acute exacerbation of chronic obstructive airways disease Current Visit: Yes Status: Acute steroids, abx and nebs per primary team (3) Anemia Current Visit: No Status: Chronic Hgb low but stable at 8.8, will monitor no aranesp for now given lung cancer history Qualifiers: Other causes of anemia: chronic disease, kidney Qualified Code(s): N18.9 - Chronic kidney disease, unspecified; D63.1 - Anemia in chronic kidney disease Subjective Interval history: Pt seen and examined receiving neb treatment with no SOB at present. s/p HD yesterday with goal UF of 2-3kg which he tolerated but having hypotensive episodes today with IVF started by primary team. Objective - Vital Signs Vital signs: Vital Signs Temp Pulse Resp BP Pulse Ox 05/19/17 11:08 97.8 F 83 15 72/52 95 05/19/17 09:57 72/58 05/19/17 08:55 97 05/19/17 08:54 74/56 05/19/17 08:17 74/52 05/19/17 07:54 98.7 F 90 18 76/38 97 05/19/17 04:11 16 96 05/19/17 03:25 98 F 100 18 90/65 93 05/18/17 23:12 18 98 05/18/17 21:53 98.3 F 130 24 101/62 99 05/18/17 20:40 98.5 F 18 132/72 05/18/17 20:30 116/52 05/18/17 20:15 119/47 05/18/17 20:00 109/61 05/18/17 19:45 108/64 05/18/17 19:30 117/57 05/18/17 19:15 123/74 05/18/17 19:00 123/67 05/18/17 18:45 131/70 05/18/17 18:30 120/59 05/18/17 18:15 123/81 05/18/17 18:00 148/79 05/18/17 17:45 143/75 05/18/17 17:30 98.5 F 20 133/78 05/18/17 16:18 97.7 F 127 20 126/80 98 05/18/17 15:38 16 97 Intake and Output 05/18/17 05/19/17 05/19/17 23:59 07:59 15:59 Intake Total 600 / 600 100 / 100 290 / 290 Output Total 3950 / 3950 300 / 300 0 / 0 Balance -3350 / -3350 -200 / -200 290 / 290 Intake: IV Fluids 100 / 100 Zosyn 3.375 GM In 100 / 100 Dextrose 5% (Minibag+) 100 ML 100 ML @ 25 mls/hr IVPB Q8H [facility] Rx#: [id number] Oral 0 / 0 290 / 290 Intake, Rinseback and 600 / 600 Flushes Output: Urine 350 / 350 300 / 300 0 / 0 Total Dialysis (HD) 3600 / 3600 Output Other: Meal Breakfast Percent of Meal Consumed 100% Weight 64.4 kg Blood Glucose* 190 123 176 Hemodialysis Net Fluid 3000 Removed (mL) Patient Weight 05/19/17 23:59 Weight 64.4 kg - General Appearance General appearance: Present: chronically ill (NAD) EENT: Present: ATNC, mucous membranes moist Neck: Present: no JVD, supple Respiratory: Present: course breath sounds Cardiology: Present: no edema, normal S1, normal S2 Dialysis Vascular Access: Arteriovenous Fistula thrill: Yes bruit: Yes Gastrointestinal: Present: no tenderness, no guarding Integumentary: Present: warm and dry Neurologic: Present: no focal deficit Musculoskeletal: Present: no deformities Psychiatric: Present: mood/affect appropriate, cooperative - Lab 05/19/17 00:49 05/19/17 00:49 Most recent lab results Calcium 9.6 mg/dL (8.6-10.8) 05/19/17 00:49 Magnesium 1.9 mg/dL (1.6-2.6) 05/19/17 00:49 Consult Discharge Plan - Plan Referrals: Jeromy Wall MD [Primary Care Provider] -
[2017-05-19] MEDS ORDERED: Levofloxacin 500 MG/100 ML 500 MG/100 ML BAG IVPB SCH (15:00)
[2017-05-19] MEDS: MethylPREDNISolone 40 MG/ML VIAL IVP SCH (15:21)
[2017-05-19] MEDS ORDERED: Vancomycin 500 MG in D5% in Water (Mini-Bag+) 100 ML IVPB ONE (18:00)
[2017-05-19] MEDS: Furosemide 40 MG TABLET PO SCH (18:59)
[2017-05-20] MEDS: MethylPREDNISolone 40 MG/ML VIAL IVP SCH ×3 (00:39→16:05)
[2017-05-20 01:23] LABS: Hematocrit 24.8 % (37.5-50.1); Hemoglobin 7.6 g/dL (12.9-16.9); Mean Corpuscular HGB Conc 30.6 g/dL (31.6-35.5); Mean Corpuscular Volume 91.5 fL (83.0-100.0); Mean Platelet Volume 9.8 fL (9.4-12.4); Platelet Count 252 K/mcL (140-400); Red Blood Count 2.71 M/mcL (4.19-5.50); Red Cell Distribution Width 17.8 % (11.5-14.5)
[2017-05-20 01:36] LABS: Calcium 9.2 mg/dL (8.6-10.8); Potassium 5.2 mEq/L (3.5-4.5)
[2017-05-20] MEDS: Ipratropium/Albuterol Neb 3 ML IH SCH ×6 (04:08→23:37)
[2017-05-20] MEDS: Calcium Acetate 667 MG CAPSULE PO SCH ×3 (07:26→16:51)
[2017-05-20] MEDS: Piperacillin/Tazobactam 3.375 GM in D5% in Water (Mini-Bag+) 100 ML IVPB SCH (07:26)
[2017-05-20] MEDS: *HR* OxyCODONE Immed Rel 15 MG TABLET PO PRN ×3 (07:26→20:15)
[2017-05-20] MEDS: Insulin LISPRO 300 UNITS/3 ML VIAL SQ SCH ×3 (07:46→16:51)
[2017-05-20] MEDS: Gabapentin 100 MG CAPSULE PO SCH ×3 (09:12→20:15)
[2017-05-20] MEDS: Megestrol Acetate 400 MG/10 ML UDC PO SCH (09:13)
[2017-05-20] MEDS: Multivit/Ca/Min/Fe/FA 1 TAB TABLET PO SCH (09:13)
[2017-05-20] MEDS: Furosemide 40 MG TABLET PO SCH (09:13)
--- NOTE | 2017-05-20 09:34 | Internal Med Progress Note ---
Date of Encounter: 05/20/17 Time of Encounter: 09:31 - Assessment and plan (1) COPD exacerbation Current Visit: No Status: Acute Assessment and plan: Acute COPD exacerbation secondary to sepsis due to possible right lung postobstructive pneumonia related to malignancy/possible gram-negative pneumonia Unlikely healthcare associated pneumonia Hypotension has improved considerably Continue Levaquin day 3 Discontinue Zosyn and vancomycin at day 3 May resume Lasix, discontinue IV fluids Discontinued dexamethasone, continue Solu-Medrol, continue oxygen therapy (2) Lung cancer Current Visit: No Status: Chronic Assessment and plan: 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 Qualifiers: Laterality: right Lung location: hilum of lung Qualified Code(s): C34.01 - Malignant neoplasm of right main bronchus (3) ESRD (end stage renal disease) on dialysis Current Visit: No Status: Chronic Assessment and plan: Continue hemodialysis (4) Elevated troponin Current Visit: No Status: Chronic Assessment and plan: The patient has chronically elevated troponins likely related to end-stage renal disease, no active typical chest pain (5) Pneumonia Current Visit: Yes Status: Acute Qualifiers: Pneumonia type: due to unspecified organism Laterality: bilateral Lung location: unspecified part of lung Qualified Code(s): J18.9 - Pneumonia, unspecified organism (6) Type 2 diabetes mellitus Current Visit: No Status: Chronic Assessment and plan: Continue insulin sliding scale Qualifiers: Diabetes mellitus complication status: with circulatory complication Diabetes mellitus complication detail: with other circulatory complications Qualified Code(s): E11.59 - Type 2 diabetes mellitus with other circulatory complications (7) Hyperkalemia Current Visit: Yes Status: Acute Assessment and plan: Give Kayexalate (8) Anemia Current Visit: No Status: Chronic Assessment and plan: Likely secondary to end-stage renal disease/chronic No evidence of bleeding, the patient has not had any bowel movements Order Hemoccult, continue omeprazole, monitor CBC Qualifiers: Other causes of anemia: chronic disease, other Qualified Code(s): D63.8 - Anemia in other chronic diseases classified elsewhere - Subjective Interval history: The patient is feeling a little better, less short of breath, bringing up less yellowish phlegm. Complains of right pleuritic-type of pain at times only, had fevers at home, denies any abdominal pain, no diarrhea - Constitutional Vitals: Temp Pulse Resp BP Pulse Ox 97.7 F 97 19 107/60 96 05/20/17 07:17 05/20/17 07:17 05/20/17 08:04 05/20/17 07:17 05/20/17 08:04 General appearance: Present: A&O X 3 Exam: - Head Head exam: Present: atraumatic, normocephalic - Eye Eye exam: Present: PERRL, conjuntiva pink, sclera anicteric Pupils: Present: PERRL - Neck Neck exam general surgery: Present: supple, trachea midline. Absent: lymphadenopathy - Respiratory Respiratory exam: Present: CTAB, rales, wheezes (Diffuse wheezing and crackles mostly on the right upper lung field). Absent: accessory muscle use, rhonchi - Cardiovascular Cardiovascular exam: Present: RRR, +S1, +S2. Absent: diastolic murmur, gallop, rubs, systolic murmur - GI/Abdominal GI/Abdominal exam: Present: normal bowel sounds, soft, no peritoneal signs. Absent: distended, tenderness - Extremities Exam Extremities exam: Present: warm, radial pulses palpable and symetrical. Absent : calf tenderness, cyanotic, pedal edema - Neurological Exam Neurological exam: Present: CN II-XII intact, oriented X3, no focal deficits. Absent: pronater drift, facial droop, speech deficit - Skin Skin exam: Present: dry, intact Additional comments: Right upper extremity AV fistula with good thrill Internal Medicine: Result - Labs CBC & Chem 7: 05/20/17 01:13 05/20/17 01:13 Labs: Short CBC 05/20/17 Range/Units 01:13 WBC 6.2 (4.3-11.1) K/mcL Hgb 7.6 L (12.9-16.9) g/dL Hct 24.8 L (37.5-50.1) % Plt Count 252 (140-400) K/mcL BMP 05/20/17 01:13 Sodium 132 L D Potassium 5.2 H Chloride 96 L Carbon Dioxide 28 BUN 54 H D Creatinine 4.69 H D Glucose 297 H Calcium 9.2 - ABG Interpretation ABG results: PT/INR, D-dimer PT 16.4 Seconds (9.4-12.1) H 05/19/17 00:49 - Impressions Impressions Chest CT 05/18/17 15:30 IMPRESSION: 1. Persistent right perihilar opacity, likely the site of the patient's primary tumor, with interval progression of reticulonodular and ground-glass opacity throughout the right upper lobe, which while could represent postobstructive pneumonia, is concerning for lymphangitic spread of tumor. 2. New 10 mm subpleural nodule within the anterior right upper lobe is concerning for intrapulmonary metastatic disease. 3. New small bilateral pleural effusions, right greater than left, with new reticulonodular and ground-glass opacity throughout the right middle lobe and right lower lobe, which while could represent a combination of pulmonary edema and superimposed pneumonia, the possibility of lymphangitic spread of tumor is raised. 4. Stable mild mediastinal lymphadenopathy. RECOMMENDATIONS: Suggest appropriate clinical treatment, and continued chest CT imaging follow-up as per oncologic protocol. D/ / 05/18/2017 16:16:15 Jessee Rockwell MD / lindsay Interpreting Provider: Jessee Rockwell MD Consult Discharge Plan - Plan Referrals: Jeromy Wall MD [Primary Care Provider] -
[2017-05-20] MEDS ORDERED: Levofloxacin 500 MG/100 ML 500 MG/100 ML BAG IVPB SCH (12:00)
--- NOTE | 2017-05-20 14:53 | Nephrology Progress Note ---
Date of Encounter: 05/20/17 Time of Encounter: 13:00 - Assessment and Plan (1) End stage chronic kidney disease Current Visit: Yes Status: Chronic s/p HD sunday with next HD in the am now off IVF and positive 1.2liters afterwards, will monitor (2) Acute exacerbation of chronic obstructive airways disease Current Visit: Yes Status: Acute steroids, abx and nebs per primary team (3) Anemia Current Visit: No Status: Chronic Hgb trending down, may need transfusion during HD tomorrow if lower no aranesp for now given lung cancer history Qualifiers: Other causes of anemia: chronic disease, other Qualified Code(s): D63.8 - Anemia in other chronic diseases classified elsewhere Subjective Interval history: Pt seen and examined feeling a little better but still with SOB Objective - Vital Signs Vital signs: Vital Signs Temp Pulse Resp BP Pulse Ox 05/20/17 11:45 19 99 05/20/17 11:38 97.6 F 105 15 120/71 98 05/20/17 09:56 122/56 05/20/17 08:04 19 96 05/20/17 07:33 98 05/20/17 07:17 97.7 F 97 20 107/60 98 05/20/17 04:08 16 98 05/20/17 03:22 97.8 F 90 16 96/55 98 05/19/17 23:42 98.1 F 101 16 93/57 96 05/19/17 23:27 18 99 05/19/17 20:08 18 97 05/19/17 19:37 97.7 F 97 18 117/68 97 05/19/17 18:25 118/82 05/19/17 16:21 24 100 05/19/17 15:45 97.4 F L 87 15 92/51 98 Intake and Output 05/19/17 05/20/17 05/20/17 23:59 07:59 15:59 Intake Total 720 / 720 100 / 100 720 / 720 Output Total 120 / 120 175 / 175 Balance 600 / 600 -75 / -75 720 / 720 Intake: IV Fluids 600 / 600 100 / 100 0.9 % Sodium Chloride 1, 500 / 500 000 ML @ 75 mls/hr IVC . [id number] [facility] Rx#: [id number] Zosyn 3.375 GM In 100 / 100 100 / 100 Dextrose 5% (Minibag+) 100 ML 100 ML @ 25 mls/hr IVPB Q8H [facility] Rx#: [id number] Oral 120 / 120 0 / 0 720 / 720 Output: Urine 120 / 120 175 / 175 Other: Meal Dinner Lunch Percent of Meal Consumed 100% 100% Stool Size Large Stool Consistency formed Stool Color Black # Bowel Movements 1 Weight 65.6 kg Blood Glucose* 221 264 148 Patient Weight 05/20/17 23:59 Weight 65.6 kg - Lab 05/20/17 01:13 05/20/17 01:13 Most recent lab results Calcium 9.2 mg/dL (8.6-10.8) 05/20/17 01:13 Magnesium 1.9 mg/dL (1.6-2.6) 05/19/17 00:49 Consult Discharge Plan - Plan Referrals: Jeromy Wall MD [Primary Care Provider] -
[2017-05-21] MEDS: Insulin LISPRO 300 UNITS/3 ML VIAL SQ SCH ×5 (00:15→21:08)
[2017-05-21] MEDS: MethylPREDNISolone 40 MG/ML VIAL IVP SCH ×4 (00:18→23:50)
[2017-05-21] MEDS: Ipratropium/Albuterol Neb 3 ML IH SCH ×6 (04:16→23:07)
[2017-05-21 04:40] LABS: Hematocrit 25.7 % (37.5-50.1); Hemoglobin 7.6 g/dL (12.9-16.9); Mean Corpuscular HGB Conc 29.6 g/dL (31.6-35.5); Mean Corpuscular Hemoglobin 27.3 pg (28.0-33.3); Mean Corpuscular Volume 92.4 fL (83.0-100.0); Mean Platelet Volume 10.1 fL (9.4-12.4); Platelet Count 278 K/mcL (140-400); Red Blood Count 2.78 M/mcL (4.19-5.50); Red Cell Distribution Width 17.9 % (11.5-14.5)
[2017-05-21 04:53] LABS: Calcium 9.2 mg/dL (8.6-10.8)
[2017-05-21 05:29] LABS: Potassium 4.7 mEq/L (3.5-4.5)
[2017-05-21] MEDS ORDERED: *HR* Morphine 2 MG/ML SYRINGE IVP PRN ×2 (07:41→14:24)
[2017-05-21] MEDS: Calcium Acetate 667 MG CAPSULE PO SCH ×3 (08:47→16:56)
[2017-05-21] MEDS: Megestrol Acetate 400 MG/10 ML UDC PO SCH (08:53)
[2017-05-21] MEDS: Furosemide 40 MG TABLET PO SCH (08:53)
[2017-05-21] MEDS: Multivit/Ca/Min/Fe/FA 1 TAB TABLET PO SCH (08:54)
[2017-05-21] MEDS: Gabapentin 100 MG CAPSULE PO SCH ×3 (08:54→21:08)
[2017-05-21] MEDS ORDERED: 0.9 % Sodium Chloride 250 ML IVC PRN (09:32)
[2017-05-21] MEDS ORDERED: Aminoglycoside Consult 1 EACH MC ONE (09:45)
--- NOTE | 2017-05-21 09:54 | Internal Med Progress Note ---
<Nando Sumner - Last Filed: 05/21/17 09:51> Date of Encounter: 05/21/17 Time of Encounter: 09:30 - Assessment and plan (1) Acute exacerbation of chronic obstructive airways disease Current Visit: Yes Status: Acute Assessment and plan: Acute COPD exacerbation secondary to sepsis due to possible right lung postobstructive pneumonia related to malignancy/possible gram-negative pneumonia Unlikely healthcare associated pneumonia Hypotension has improved considerably Continue Levaquin day 3 Discontinue Zosyn and vancomycin at day 3 May resume Lasix, discontinue IV fluids Discontinued dexamethasone, continue Solu-Medrol, continue oxygen therapy (2) Aspiration into airway Current Visit: Yes Status: Acute Assessment and plan: Patient coughed up several blueberries this morning. He stated that he ate the blueberries on . -Pulmonology has been consulted. -Patient may need bronchoscopy. (3) Anemia Current Visit: No Status: Chronic Assessment and plan: Likely secondary to end-stage renal disease/chronic. -No evidence of bleeding, the patient has not had any bowel movements. -Order Hemoccult, continue omeprazole, monitor CBC. 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 He states that this morning, he coughed up several blueberries that he had eaten last . Several whole blueberries are examined in a cup at bedside. Patient denies having any issues swallowing, abdominal pain, distention, GI distress, or tenderness to palpation in his abdomen. Patient states that his cough and shortness of breath has improved since he first arrived in the hospital. The only complaint that he has this morning is feeling somewhat fatigued. Patient denies having any productive cough, shortness of breath at the moment, fever, chills, nausea, or vomiting. He has no other complaints at this time. - Constitutional Vitals: Temp Pulse Resp BP Pulse Ox 98.0 F 110 18 110/66 98 05/21/17 06:57 05/21/17 06:57 05/21/17 06:57 05/21/17 06:57 05/21/17 08:59 General appearance: Present: A&O X 3 - Head Head exam: Present: atraumatic, normocephalic - Neck Neck exam general surgery: Present: supple, trachea midline - Respiratory Respiratory exam: Present: rales, rhonchi, wheezes. Absent: accessory muscle use, CTAB Additional comments: Expiratory wheezes are heard bilaterally. - Cardiovascular Cardiovascular exam: Present: +S1, +S2, tachycardia. Absent: diastolic murmur, gallop, rubs, systolic murmur Additional comments: Patient was tachycardic this morning. Heart rate was 110. - GI/Abdominal GI/Abdominal exam: Present: normal bowel sounds, soft, no peritoneal signs. Absent: distended, tenderness - Extremities Exam Extremities exam: Present: warm, radial pulses palpable and symetrical. Absent : calf tenderness, cyanotic, pedal edema - Skin Skin exam: Present: dry, intact Internal Medicine: Result - Labs CBC & Chem 7: 05/21/17 04:10 05/21/17 04:10 Labs: Short CBC 05/21/17 Range/Units 04:10 WBC 11.5 H D (4.3-11.1) K/mcL Hgb 7.6 L (12.9-16.9) g/dL Hct 25.7 L (37.5-50.1) % Plt Count 278 (140-400) K/mcL BMP 05/21/17 04:10 Sodium 138 Potassium 4.7 H Chloride 99 Carbon Dioxide 24 BUN 83 H D Creatinine 5.82 H Glucose 200 H Calcium 9.2 - ABG Interpretation ABG results: PT/INR, D-dimer PT 16.4 Seconds (9.4-12.1) H 05/19/17 00:49 - Impressions Impressions Chest X-Ray 05/20/17 23:41 IMPRESSION: Progressive airspace disease in the mid right lung could represent pneumonia or aspiration. D/ / Didier Carvajal MD / Didier Carvajal MD Interpreting Provider: Didier Carvajal MD - VTE Documentation of Mechanical Device: Intermittent pneumatic compression device Consult Discharge Plan - Plan Referrals: Jeromy Wall MD [Primary Care Provider] - (Web requested 05-19-17) <Chente Burton H - Last Filed: 05/21/17 10:10> Date of Encounter: 05/21/17 - Assessment and plan (1) COPD exacerbation Current Visit: No Status: Acute (2) Lung cancer Current Visit: No Status: Chronic Qualifiers: Laterality: right Lung location: hilum of lung Qualified Code(s): C34.01 - Malignant neoplasm of right main bronchus (3) ESRD (end stage renal disease) on dialysis Current Visit: No Status: Chronic (4) Elevated troponin Current Visit: No Status: Chronic (5) Pneumonia Current Visit: Yes Status: Acute Qualifiers: Pneumonia type: due to unspecified organism Laterality: bilateral Lung location: unspecified part of lung Qualified Code(s): J18.9 - Pneumonia, unspecified organism (6) Type 2 diabetes mellitus Current Visit: No Status: Chronic Qualifiers: Diabetes mellitus complication status: with circulatory complication Diabetes mellitus complication detail: with other circulatory complications Qualified Code(s): E11.59 - Type 2 diabetes mellitus with other circulatory complications (7) Hyperkalemia Current Visit: Yes Status: Acute (8) Anemia Current Visit: No Status: Chronic Qualifiers: Other causes of anemia: chronic disease, other Qualified Code(s): D63.8 - Anemia in other chronic diseases classified elsewhere - Constitutional Vitals: Temp Pulse Resp BP Pulse Ox 98.0 F 110 18 110/66 98 05/21/17 06:57 05/21/17 06:57 05/21/17 06:57 05/21/17 06:57 05/21/17 08:59 Internal Medicine: Result - Labs CBC & Chem 7: 05/21/17 04:10 05/21/17 04:10 Labs: Short CBC 05/21/17 Range/Units 04:10 WBC 11.5 H D (4.3-11.1) K/mcL Hgb 7.6 L (12.9-16.9) g/dL Hct 25.7 L (37.5-50.1) % Plt Count 278 (140-400) K/mcL BMP 05/21/17 04:10 Sodium 138 Potassium 4.7 H Chloride 99 Carbon Dioxide 24 BUN 83 H D Creatinine 5.82 H Glucose 200 H Calcium 9.2 - ABG Interpretation ABG results: PT/INR, D-dimer PT 16.4 Seconds (9.4-12.1) H 05/19/17 00:49 - Impressions Impressions Chest X-Ray 05/20/17 23:41 IMPRESSION: Progressive airspace disease in the mid right lung could represent pneumonia or aspiration. D/ / Didier Carvajal MD / Didier Carvajal MD Interpreting Provider: Didier Carvajal MD - Attending Attestation The patient had a CT scan already, and otherwise has not needed a bronchoscopy will be performed later today by Dr. Perla I examined this patient and my medical decision-making was reviewed with the Resident Physician. I agree with the documented findings, disposition and treatment plan as described except to the extent set forth below.
--- NOTE | 2017-05-21 11:07 | Pulmonology Consult Note ---
Date of Encounter: 05/21/17 Time of Encounter: 11:07 Assessment and Plan (1) Aspiration of food Current Visit: Yes Status: Acute This is a 61-year-old gentleman with past medical history of lung cancer status post debulking for an endobronchial lesion with history of recurrent pneumonia. Appears to have presented with acute pneumonia and has been treated with antimicrobial therapy noted to have expectoration of food including blueberries which may have been aspirated in the previous 48-72 hours. Although no clear indication on CT imaging that there is endobronchial obstruction I think it would be prudent to proceed with bronchoscopy to verify that there is no further residual obstructing organic matter that could be removed. In addition this will allow us to perform bronchoalveolar lavage in the right upper lobe and to further characterize airway anatomy which may have both prognostic as well as potential therapeutic implications down the line I agree with the use of empiric steroids I do not feel that the degree of COPD exacerbation warrant IV formulation and patient should be transitioned to by mouth prednisone 40 mg to complete at least 5 days Continue bronchodilators every 4-6 hours Agree with empiric antimicrobial coverage although Levaquin is not an ideal agent for aspiration pneumonia would considered transitioning to UniSyn or Zosyn or possibly even oral Augmentin to complete 7 days based upon clinical course CT scan is notable for possible worsening of underlying squamous cell carcinoma differential including lymphangitic spread versus pulmonary edema versus pneumonia. Patient is end-stage renal dialysis patient and will need dialysis visit feel overall a bit volume overloaded given he had fluids over the last 48 hours I will defer the management of his underlying heart failure due to [facility] however I have rechecked troponin as it was elevated but never trended to make sure that the troponin actually during trended down and that this was more relationship of stress ischemia as opposed to true obstructing coronary lesion which is seemingly less likely and patient has not been complaining of any chest pain I would continue chemical DVT prophylaxis to prevent DVTs A bronchoscopy is recommended. The procedure , risks, benefits, complications, and expected outcomes have been reviewed. Benefits of diagnosis, as well as risks to include bleeding, infection, pneumothorax which may require surgical intervention, and in a small population. The patient is aware that sometimes test is nondiagnostic. Discussed with patient and agrees to proceed. Qualifiers: Encounter type: initial encounter Qualified Code(s): T17.890A - Other foreign object in other parts of respiratory tract causing asphyxiation, initial encounter (2) Acute exacerbation of chronic obstructive airways disease Current Visit: Yes Status: Acute (3) Pulmonary edema Current Visit: Yes Status: Acute Qualifiers: Chronicity: chronic Qualified Code(s): J81.1 - Chronic pulmonary edema (4) Systolic heart failure secondary to coronary artery disease Current Visit: No Status: Chronic (5) DVT prophylaxis Current Visit: No Status: Resolved History of Present Illness Consult date: 05/21/17 Requesting physician: Chente Burton Reason for consult: pneumonia Chief complaint: Shortness of breath. History of present illness: Mr. Guardado is a very pleasant 61-year-old gentleman with a past medical history of heart failure with reduced ejection fraction former smoker with COPD peripheral vascular disease history of coronary artery disease, ESRD and squamous cell carcinoma diagnosed of this year status post endobronchial debulking of the right upper lobe for recurrent pneumonia (postobstructive). He is undergoing concurrent, and it grindstone based chemotherapy and radiation therapy. He presented with worsening shortness of breath tachycardia and increased oxygen requirement with CT scan notable for possible right upper lobe pneumonia versus lymphangitic spread of carcinoma.Begin the patient he states that he was eating blueberries and had choked on the blueberries and had swallowed inappropriately U as noted to ask a cough some of these blueberries up over the last 24 hours and there is sitting in a specimen cup next to the bed. He has been treated with antimicrobials including Levaquin and he has been given IV formulation of steroid. Currently saturating in the 90s with baseline oxygen requirement of 2-3 L. Past Med Surg Social Fam HX - Past Medical History Medical history: arthritis, cancer, CHF, coronary artery disease, diabetes, dialysis, GERD, hyperlipidemia, hypertension, myocardial infarction, peripheral artery disease, renal disease, other Psychiatric history: anxiety, depression - Past Surgical History Surgical History: angioplasty/stent, carotid endarterectomy, coronary bypass ( CABG), orthopedic, other, other - Social History Smoking Status: Former smoker Packs per day: 1 1/2 - 2 PPD, reports quitting 1 year ago Smokeless Tobacco Status: No (does not smoke) Alcohol use: none Drug use: none - Family History Brother Adopted: No Race: Family Member Ethnicity: Non- Living Status: Hx Family Cardiac Disorders: Yes Hx Family Respiratory Disorders: Yes (dad black lung) Hx Family Cancer: Yes (mother) Hx Family GI Disorders: No Hx Family Endocrine Disorder: Yes (sister) Hx Family Neuromuscular Disorders: No Hx Family Neurologic Disorders: No Hx Family HEENT Disorders: No Hx Family Autoimmune Disorders: No Sister Race: Family Member Ethnicity: Non- Living Status: Still Living Hx Family Cardiac Disorders: Yes (HD) Hx Family Respiratory Disorders: Yes (COPD) Hx Family Endocrine Disorder: Yes (Thyroid disease) Mother Adopted: No Race: Family Member Ethnicity: Non- Living Status: Age at : 54 Cause of : Lung cancer Hx Family Cardiac Disorders: No Hx Family Respiratory Disorders: No Hx Family Cancer: Yes Hx Family GI Disorders: No Hx Family Endocrine Disorder: No Hx Family Neuromuscular Disorders: No Hx Family Neurologic Disorders: No Hx Family HEENT Disorders: No Hx Family Autoimmune Disorders: No Father Adopted: No Race: Family Member Ethnicity: Non- Living Status: Age at : 79 Cause of : Black lung Hx Family Cardiac Disorders: No Hx Family Respiratory Disorders: Yes Hx Family Cancer: No Hx Family GI Disorders: No Hx Family Endocrine Disorder: No Hx Family Neuromuscular Disorders: No Hx Family Neurologic Disorders: No Hx Family HEENT Disorders: No Hx Family Autoimmune Disorders: No Medications and Allergies Famotidine [Pepcid] 10 mg PO BID #60 tablet 07/03/15 [Rx] Albuterol Sulfate [Albuterol Inhaler] 2 puff IH Q4HR 07/29/15 [History] Budesonide/Formoterol 160/4.5 [Symbicort] 2 puff IH BIDR 07/29/15 [History] Gabapentin [Neurontin] 100 mg PO TID 07/29/15 [History] Glimepiride [Amaryl] 2 mg PO DAILY 07/29/15 [History] Calcium Acetate [Phos-LO] 667 mg PO TIDWM #90 capsule 10/02/15 [Rx] Carvedilol [Coreg] 25 mg PO BID #60 tablet 10/02/15 [Rx] Furosemide [Lasix] 40 mg PO DAILY 08/31/16 [History] Oxygen 2 l NS AD 08/31/16 [History] Albuterol Neb [Proventil Neb] 2.5 mg IH Q4HR PRN #30 vial.neb 09/03/16 [Rx] Multivitamin [Multivitamins] 1 cap PO DAILY 11/03/16 [History] Magic Mouthwash [Magic Mouthwash BLM] 10 ml PO QID PRN #240 ml 12/18/16 [Rx] Umeclidinium [place] [Incruse Ellipta] 62.5 mcg IH DAILY #1 blst.w.dev 01/30/17 [Rx] Ondansetron [Zofran ODT] 8 mg SL Q4HR PRN #60 tab.rapdis 02/28/17 [Rx] Docusate [Colace] 100 mg PO DAILY #20 capsule 03/02/17 [Rx] Polyethylene Glycol 3350 [MiraLAX Powder Bulk 17.9 Oz] 1 scoop PO DAILY #510 gm 03/02/17 [Rx] Dexamethasone 1 mg PO DAILY #14 tab 04/12/17 [Rx] Megestrol Acetate [Megace] 800 mg PO DAILY #400 mls 04/12/17 [Rx] Oxycodone HCl [Roxicodone 30 MG Immed Release] 30 mg PO Q6HR PRN #90 tab [Rx] levoFLOXacin [Levaquin] 250 mg PO Q48H 05/18/17 [History] Allergies pollen extracts Allergy (Verified 05/18/17 12:12) Itching shellfish derived Adverse Reaction (Verified 05/18/17 12:12) Nausea IVP DYE Allergy (Intermediate, Uncoded 01/20/17 23:57) Vomiting All Systems: A 10-system review of systems was performed and is negative for pertinent findings except as documented above in the HPI. Physical Examination Vital Signs: Vital Signs, Last 4 Hours Temp Pulse Resp BP Pulse Ox 05/21/17 10:47 97.8 F 113 18 120/73 98 05/21/17 08:59 98 05/21/17 08:27 20 96 General appearance: no acute distress Eyes: nonicteric ENT: oropharynx moist Neck: supple, no lymphadenopathy Effort: normal Auscultation: bilateral: diminished breath sounds, wheezes (Faint expiratory wheeze), rales Cardiovascular: regular rate and rhythm Gastrointestinal: normoactive bowel sounds, soft, non-tender Extremities: no edema, pink and warm, no ischemia or petechiae normal mental status, non-focal exam mood appropriate Results - Laboratory Findings CBC and BMP: 05/21/17 04:10 05/21/17 04:10 PT/INR, D-dimer PT 16.4 Seconds (9.4-12.1) H 05/19/17 00:49 Abnormal lab findings: Abnormal lab results WBC 11.5 K/mcL (4.3-11.1) H D 05/21/17 04:10 RBC 2.78 M/mcL (4.19-5.50) L 05/21/17 04:10 Hgb 7.6 g/dL (12.9-16.9) L 05/21/17 04:10 Hct 25.7 % (37.5-50.1) L 05/21/17 04:10 MCH 27.3 pg (28.0-33.3) L 05/21/17 04:10 MCHC 29.6 g/dL (31.6-35.5) L 05/21/17 04:10 RDW 17.9 % (11.5-14.5) H 05/21/17 04:10 PT 16.4 Seconds (9.4-12.1) H 05/19/17 00:49 Potassium 4.7 mEq/L (3.5-4.5) H 05/21/17 04:10 BUN 83 mg/dL (8-26) H D 05/21/17 04:10 Creatinine 5.82 mg/dL (0.72-1.25) H 05/21/17 04:10 Est GFR ( Amer) 12 (> 60) L 05/21/17 04:10 Est GFR (Non-Af Amer) 10 (> 60) L 05/21/17 04:10 Glucose 200 mg/dL (70-99) H 05/21/17 04:10 POC Glucose 154 (58-89) H 05/21/17 07:01 Calculated Osmolality 317 (280-300) H 05/21/17 04:10 Troponin I 0.21 ng/mL (0-0.03) H* 05/19/17 00:49 B-Natriuretic Peptide 2270 pg/mL (0-100) H 05/18/17 11:28 Stool Occult Blood Positive (Negative) A 05/20/17 11:35 Vancomycin Trough 7.5 mcg/mL (10-20) L 05/19/17 15:09 - Diagnostic Findings Chest x-ray: report reviewed, image reviewed CT scan - chest: report reviewed, image reviewed - Clinical Findings Intake & Output: Intake & Output 05/20/17 05/21/17 05/21/17 23:59 07:59 15:59 Intake Total 740 / 740 0 / 0 Output Total 0 / 0 Balance 740 / 740 0 / 0 Weight 66.8 kg Consult Discharge Plan - Plan Referrals: Jeromy Wall MD [Primary Care Provider] - 05/29/17 2:00 pm (Web requested )
[2017-05-21] MEDS ORDERED: *HR* Midazolam HCl 5 MG/5 ML VIAL IVP ONE (11:22)
[2017-05-21] MEDS ORDERED: *HR* FentaNYL (PF) 100 MCG/2 ML VIAL ONE (11:23)
[2017-05-21] MEDS ORDERED: *HR* Midazolam HCl 5 MG/5 ML VIAL IVP PRN (11:25)
[2017-05-21] MEDS ORDERED: *HR* EPINEPHrine 1 MG/10 ML SYRINGE INTRATRACH PRN (11:25)
[2017-05-21] MEDS ORDERED: Tetracaine/Benzocaine/Butamben 200MG/SPRAY (100SPY/BOT) MM ONE (11:25)
--- NOTE | 2017-05-21 11:25 | Pre-Sedation Evaluation ---
Pre-sedation evaluation - Pre-sedation checklist Date of procedure: 05/21/17 Procedure: Bronchoscopy Recent Vitals: Last Vital Signs Temp 97.8 F 05/21/17 10:47 Pulse 113 05/21/17 10:47 Resp 18 05/21/17 10:47 BP 120/73 05/21/17 10:47 Pulse Ox 98 05/21/17 10:47 H&P (including ROS) documented in medical record: Yes Previous reaction to sedatives/anesthetics: No Dietary Status: NPO after Midnight Airway Assessment: Patient can open mouth completely, TMJ function normal Dentition: poor dentition, dentures removed Possible difficult airway: No ASA Classification *see protocol: CLASS IV-Severe systemic disease/constant threat to pt's life Plan of Care: Pt appropriate candidate for procedure/moderate/conscious sedation , Risks/benefits of procedure/sedation discussed w/ patient/family
[2017-05-21] MEDS ORDERED: 0.9 % Sodium Chloride 1,000 ML IVC SCH (11:30)
[2017-05-21] MEDS: *HR* FentaNYL (PF) 100 MCG/2 ML VIAL IVP PRN ×2 (11:45→11:48)
[2017-05-21] MEDS ORDERED: *HR* Labetalol 20 MG/4 ML SYRINGE IVP ONE ×2 (11:52→11:55)
--- NOTE | 2017-05-21 13:06 | Electrocardiograph Report ---
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
--- NOTE | 2017-05-21 13:52 | Nephrology Progress Note ---
Date of Encounter: 05/21/17 Time of Encounter: 13:51 - Assessment and Plan (1) End stage chronic kidney disease Current Visit: Yes Status: Chronic Plan will be to start regular dialysis schedule MWF Fluid balance +: on IVF Dialysis today monitor strict I/O high risk for fluid overload and worsening respiratory failure. (2) Acute exacerbation of chronic obstructive airways disease Current Visit: Yes Status: Acute ON abx. steroids, bronchodialators found to have aspirated blue berries: will undergo bronchoscopy. management as per primary (3) Anemia Current Visit: Yes Status: Chronic hgb stable. seen to have large black stool. recommend work up for GI bleed. Qualifiers: Other causes of anemia: chronic disease, other Qualified Code(s): D63.8 - Anemia in other chronic diseases classified elsewhere Subjective Principal diagnosis: Acute on chornic COPD Interval history: Patient coughed up blue berries he had eaten last week. Will under go bronchoscopy today. Denies N/V/D. Resume regular dialysis schedule today. Objective - Vital Signs Vital signs: Vital Signs Temp Pulse Resp BP Pulse Ox 05/21/17 12:05 101 20 123/77 96 05/21/17 11:50 125 24 160/96 99 05/21/17 11:45 125 24 160/96 99 05/21/17 11:30 97.8 F 122 20 155/93 97 05/21/17 10:47 97.8 F 113 18 120/73 98 05/21/17 08:59 98 05/21/17 08:27 20 96 05/21/17 06:57 98.0 F 110 18 110/66 94 05/21/17 04:43 98 F 103 18 102/59 98 05/21/17 04:16 18 95 05/20/17 23:17 20 98 05/20/17 23:12 98.2 F 109 16 101/62 93 05/20/17 19:45 18 98 05/20/17 19:43 97.9 F 111 18 116/67 96 05/20/17 16:21 19 97 05/20/17 16:12 97.9 F 100 16 97/54 97 Intake and Output 05/20/17 05/21/17 05/21/17 23:59 07:59 15:59 Intake Total 740 / 740 200 / 200 Output Total 0 / 0 Balance 740 / 740 200 / 200 Intake: IV Fluids 200 / 200 0.9 % Sodium Chloride 1, 200 / 200 000 ML @ 50 mls/hr IVC . Q20H [facility] Rx#:[id number] Oral 500 / 500 0 / 0 Free Water 240 / 240 Output: Urine 0 / 0 Other: Meal Dinner NPO Percent of Meal Consumed 100% 0% Weight 66.8 kg Blood Glucose* 130 154 156 Patient Weight 05/21/17 23:59 Weight 66.8 kg - General Appearance General appearance: Present: chronically ill, frail EENT: Present: mucous membranes moist Neck: Present: no JVD, supple Respiratory: Present: course breath sounds Additional Comments: tachypenic, Cardiology: Present: no edema, rapid rhythm, normal S1, normal S2 Additional Comments: mild edema b/l LE Gastrointestinal: Present: normoactive bowel sounds, no tenderness Integumentary: Present: no rash, warm and dry Neurologic: Present: no focal deficit, alert and oriented x3 Musculoskeletal: Present: no deformities, no erythema, no cyanosis, no clubbing Psychiatric: Present: mood/affect appropriate, cooperative - Lab 05/21/17 04:10 05/21/17 04:10 Most recent lab results Calcium 9.2 mg/dL (8.6-10.8) 05/21/17 04:10 Magnesium 1.9 mg/dL (1.6-2.6) 05/19/17 00:49 - VTE Documentation of Mechanical Device: Intermittent pneumatic compression device Consult Discharge Plan - Plan Referrals: Jeromy Wall MD [Primary Care Provider] - 05/29/17 2:00 pm (Web requested )
[2017-05-21] MEDS ORDERED: Albuterol 2.5 MG/3 ML NEBULIZER IH PRN (14:23)
[2017-05-21] MEDS: *HR* OxyCODONE Immed Rel 15 MG TABLET PO PRN ×2 (14:45→21:08)
[2017-05-21] MEDS: Ampicillin/Sulbactam 1,500 MG in 0.9 % Sodium Chloride Mini Bag 100 ML IVPB SCH (15:09)
[2017-05-21] MEDS: Pantoprazole 40 MG VIAL IVP SCH (16:57)
--- NOTE | 2017-05-21 18:04 | Gastroenterology Consult Note ---
Date of Encounter: 05/21/17 Time of Encounter: 18:00 - Assessment and plan (1) Anemia Current Visit: Yes Status: Chronic Assessment and plan: Patient with anemia and slight drop in his hemoglobin from 8.5-7.6 in the last 3 -4 days since the admission. No overt GI bleeding and rectal examination is negative for any black stool. Patient does has mild tachycardia but the tachycardia is multifactorial including pulmonary/cardiovascular. This follow recommended we just watch patient hemoglobin and there is no acute indication to do an EGD especially because of his underlying respiratory status. If he continues to drop his hemoglobin or has overt GI bleeding then will consider doing scopes Qualifiers: Anemia type: due to chronic kidney disease Chronic kidney disease stage: on chronic dialysis Qualified Code(s): N18.6 - End stage renal disease; D63.1 - Anemia in chronic kidney disease; Z99.2 - Dependence on renal dialysis - Time Spent With Patient Total time spent is greater than 50% in coordination of care (as documented) at patient's floor/unit and/or counseling patient: GI History of Present Illness - Data of Consult Consult date: 05/21/17 Requesting Physician: Chente Burton - Consult Narrative Reason for consult: Tacycardia and anemia History of present illness: Mr. Guardado is a 61 year old male with multiple medical problems including end- stage renal disease on hemodialysis who was admitted because of shortness of breath and is currently being treated for COPD exacerbation along with CHF. Asked to see the patient because of him being anemic with a hemoglobin down to 7.6 from 8.5 since admission and with a questionable dark-colored stool. PerThe patient stool is dark yellow in color. Denies any blood in his stool. No abdominal pain. Per The patient his last colonoscopy was couple of years ago. Pt also with past medical history of lung cancer status post debulking for an endobronchial lesion with history of recurrent pneumonia. Had a bronchoscopy done by pulmonary today because of the concern the patient may have aspirated some food but apparently the bronchoscopy was unremarkable. Past Med Surg Social Fam HX - Past Medical History Medical history: arthritis, cancer, CHF, coronary artery disease, diabetes, dialysis, GERD, hyperlipidemia, hypertension, myocardial infarction, peripheral artery disease, renal disease, other Psychiatric history: anxiety, depression - Past Surgical History Surgical History: angioplasty/stent, carotid endarterectomy, coronary bypass ( CABG), orthopedic, other, other - Social History Smoking Status: Former smoker Packs per day: 1 1/2 - 2 PPD, reports quitting 1 year ago Smokeless Tobacco Status: No (does not smoke) Alcohol use: none Drug use: none - Family History Brother Adopted: No Race: Family Member Ethnicity: Non- Living Status: Hx Family Cardiac Disorders: Yes Hx Family Respiratory Disorders: Yes (dad black lung) Hx Family Cancer: Yes (mother) Hx Family GI Disorders: No Hx Family Endocrine Disorder: Yes (sister) Hx Family Neuromuscular Disorders: No Hx Family Neurologic Disorders: No Hx Family HEENT Disorders: No Hx Family Autoimmune Disorders: No Sister Race: Family Member Ethnicity: Non- Living Status: Still Living Hx Family Cardiac Disorders: Yes (HD) Hx Family Respiratory Disorders: Yes (COPD) Hx Family Endocrine Disorder: Yes (Thyroid disease) Mother Adopted: No Race: Family Member Ethnicity: Non- Living Status: Age at : 54 Cause of : Lung cancer Hx Family Cardiac Disorders: No Hx Family Respiratory Disorders: No Hx Family Cancer: Yes Hx Family GI Disorders: No Hx Family Endocrine Disorder: No Hx Family Neuromuscular Disorders: No Hx Family Neurologic Disorders: No Hx Family HEENT Disorders: No Hx Family Autoimmune Disorders: No Father Adopted: No Race: Family Member Ethnicity: Non- Living Status: Age at : 79 Cause of : Black lung Hx Family Cardiac Disorders: No Hx Family Respiratory Disorders: Yes Hx Family Cancer: No Hx Family GI Disorders: No Hx Family Endocrine Disorder: No Hx Family Neuromuscular Disorders: No Hx Family Neurologic Disorders: No Hx Family HEENT Disorders: No Hx Family Autoimmune Disorders: No Review of Systems: GI: as per [facility] EYES: denies yellow discoloration ENT: denies pain with swallowing or difficulty swallowing CARDIO: denies chest pain, palpitations RESP: has shortness of breath but per the patient it is due to the fluid and once he has a dialysis then this will get better : denies change in color of urine NEURO: denies any weakness MS: denies joint pain, joint swelling or back pain. DERM: denies rash or itching PSYCH: denies history of: depression or anxiety - Constitutional Vitals: Temp Pulse Resp BP Pulse Ox 97.8 F 101 20 123/77 96 05/21/17 11:30 05/21/17 12:05 05/21/17 12:05 05/21/17 12:05 05/21/17 12:05 - Head Head exam: Present: atraumatic - Eye Eye exam: Present: sclera anicteric - Neck Neck exam general surgery: Present: supple - Respiratory Additional comments: Does has crackles on the left side - Cardiovascular Additional comments: Patient is tachycardic and there is a central chest scar of previous CABG - GI/Abdominal Additional comments: Abdomen soft and the nonfocal - Rectal Additional comments: No palpable mass. Stool was dark brown in color - Extremities Exam Additional comments: Right upper extremity does has AV fistula - Neurological Exam Neurological exam: Present: oriented X3 - Skin Skin exam: Present: dry, warm Results - Labs CBC & Chem 7: 05/21/17 04:10 05/21/17 04:10 Labs: Last Result Calcium 9.2 mg/dL (8.6-10.8) 05/21/17 04:10 Troponin I 0.08 ng/mL (0-0.03) H* 05/21/17 04:27 Triglycerides 56 mg/dL (< 150) 05/19/17 00:49 Stool Occult Blood Positive (Negative) A 05/20/17 11:35 Entire Visit Hgb 7.6 g/dL (12.9-16.9) L 05/21/17 04:10 Hct 25.7 % (37.5-50.1) L 05/21/17 04:10 PT 16.4 Seconds (9.4-12.1) H 05/19/17 00:49 - ABG ABG results: PT/INR, D-dimer PT 16.4 Seconds (9.4-12.1) H 05/19/17 00:49 - Impressions Impressions Chest X-Ray 05/20/17 23:41 IMPRESSION: Progressive airspace disease in the mid right lung could represent pneumonia or aspiration. D/ / Didier Carvajal MD / Didier Carvajal MD Interpreting Provider: Didier Carvajal MD Consult Discharge Plan - Plan Referrals: Jeromy Wall MD [Primary Care Provider] - 05/29/17 2:00 pm (Web requested )
[2017-05-22] MEDS: Ipratropium/Albuterol Neb 3 ML IH SCH ×6 (04:37→23:32)
[2017-05-22] MEDS: *HR* OxyCODONE Immed Rel 15 MG TABLET PO PRN ×3 (04:46→17:31)
[2017-05-22] MEDS: Pantoprazole 40 MG VIAL IVP SCH ×2 (05:54→17:26)
[2017-05-22] MEDS: Ampicillin/Sulbactam 1,500 MG in 0.9 % Sodium Chloride Mini Bag 100 ML IVPB SCH ×2 (05:54→17:24)
[2017-05-22 06:10] LABS: Hematocrit 27.8 % (37.5-50.1); Hemoglobin 8.2 g/dL (12.9-16.9); Immature Granulocytes % 0.4 % (0-4); Lymphocytes # 0.3 K/mcL (0.6-4.6); Mean Corpuscular HGB Conc 29.5 g/dL (31.6-35.5); Mean Corpuscular Hemoglobin 27.2 pg (28.0-33.3); Mean Corpuscular Volume 92.4 fL (83.0-100.0); Mean Platelet Volume 10.3 fL (9.4-12.4); Monocytes # 0.3 K/mcL (0.0-1.3); Monocytes % 2.8 %; Neutrophils # 8.4 K/mcL (1.6-8.9); Platelet Count 283 K/mcL (140-400); Red Blood Count 3.01 M/mcL (4.19-5.50); Red Cell Distribution Width 18.2 % (11.5-14.5); Segmented Neutrophils % 93.8 %
[2017-05-22 06:14] LABS: INR 1.2; Prothrombin Time 13.5 Seconds (9.4-12.1)
[2017-05-22 06:24] LABS: Calcium 9.2 mg/dL (8.6-10.8); Potassium 4.3 mEq/L (3.5-4.5)
--- NOTE | 2017-05-22 08:30 | Pulmonology Progress Note ---
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 Status post bronchoscopy yesterday which did not show any retained organic matter. I did note extensive mucoid secretions throughout the tracheobronchial tree although this was worse in the right lobe and specifically right upper lobe. There were no other obstructing lesions that were noted from this bronchoscopy. Cultures were sent yesterday although I do not see that they have resulted as of yet I will follow-up on this otherwise would continue antimicrobial therapy as mentioned in yesterday's note it may be prudent to cover for aspiration with a [id number] strategy although I will defer to the primary medicine service if they want to implement this recommendation or not. Following up cultures and deescalating based upon micro s/s and based upon clinical course I would treat the patient for 7 days. From standpoint of COPD would continue his bronchodilator regimen and he can be transitioned to by mouth steroids to complete a two-week taper Continue chemical DVT prophylaxis unless felt that acute anemia represents active gastrointestinal hemorrhage which does not appear to be the case from review of GI consult note Please call with questions Qualifiers: Qualified Code(s): T17.890A - Other foreign object in other parts of respiratory tract causing asphyxiation, initial encounter (2) Acute exacerbation of chronic obstructive airways disease Current Visit: Yes Status: Acute (3) Pulmonary edema Current Visit: Yes Status: Acute Qualifiers: Qualified Code(s): J81.1 - Chronic pulmonary edema (4) Systolic heart failure secondary to coronary artery disease Current Visit: No Status: Chronic (5) DVT prophylaxis Current Visit: No Status: Resolved Subjective Principal diagnosis: Acute on chornic COPD Interval history: No untoward effects status post bronchoscopy. Breathing a little bit easier today denies other complaint Objective PUL Vital signs: Last Vital Signs Temp 98.2 F 05/22/17 06:47 Pulse 102 05/22/17 06:47 Resp 17 05/22/17 06:47 BP 126/73 05/22/17 06:47 Pulse Ox 96 05/22/17 06:47 General appearance: no acute distress ENT: oropharynx moist Auscultation: bilateral: rhonchi (Right greater than left) Cardiovascular: regular rate and rhythm Gastrointestinal: normoactive bowel sounds Extremities: no cyanosis, no clubbing normal mental status, non-focal exam Results - Laboratory Findings CBC and BMP: 05/22/17 04:34 05/22/17 04:34 PT/INR, D-dimer PT 13.5 Seconds (9.4-12.1) H 05/22/17 04:34 Abnormal lab findings: Abnormal lab results RBC 3.01 M/mcL (4.19-5.50) L 05/22/17 04:34 Hgb 8.2 g/dL (12.9-16.9) L 05/22/17 04:34 Hct 27.8 % (37.5-50.1) L 05/22/17 04:34 MCH 27.2 pg (28.0-33.3) L 05/22/17 04:34 MCHC 29.5 g/dL (31.6-35.5) L 05/22/17 04:34 RDW 18.2 % (11.5-14.5) H 05/22/17 04:34 Lymphocytes # 0.3 K/mcL (0.6-4.6) L 05/22/17 04:34 PT 13.5 Seconds (9.4-12.1) H 05/22/17 04:34 BUN 47 mg/dL (8-26) H D 05/22/17 04:34 Creatinine 3.39 mg/dL (0.72-1.25) H 05/22/17 04:34 Est GFR ( Amer) 23 (> 60) L 05/22/17 04:34 Est GFR (Non-Af Amer) 19 (> 60) L 05/22/17 04:34 Glucose 144 mg/dL (70-99) H 05/22/17 04:34 POC Glucose 154 (58-89) H 05/21/17 07:01 Calculated Osmolality 301 (280-300) H 05/22/17 04:34 Troponin I 0.08 ng/mL (0-0.03) H* 05/21/17 04:27 B-Natriuretic Peptide 2270 pg/mL (0-100) H 05/18/17 11:28 Stool Occult Blood Positive (Negative) A 05/20/17 11:35 Vancomycin Trough 7.5 mcg/mL (10-20) L 05/19/17 15:09 - Clinical Findings Intake & Output: Intake & Output 05/21/17 05/22/17 05/22/17 23:59 07:59 15:59 Intake Total 100 / 100 Output Total 2600 / 2600 Balance -2500 / -2500 Weight 66.8 kg 64.127 kg - VTE Documentation of Mechanical Device: Intermittent pneumatic compression device Consult Discharge Plan - Plan Referrals: Jeromy Wall MD [Primary Care Provider] - 05/29/17 2:00 pm (Web requested )
--- NOTE | 2017-05-22 08:30 | Nephrology Progress Note ---
Date of Encounter: 05/22/17 Time of Encounter: 08:25 - Assessment and Plan (1) End stage chronic kidney disease Current Visit: Yes Status: Chronic continue MWF dialysis 2.5 kg removed yesterday monitor strict I/O stable (2) Acute exacerbation of chronic obstructive airways disease Current Visit: Yes Status: Acute ON abx. steroids, bronchodialators management as per primary (3) Anemia Current Visit: Yes Status: Chronic hgb stable. seen to have large black stool. and positive FBOT GI consulted Qualifiers: Anemia type: other cause Other causes of anemia: chronic disease, other Qualified Code(s): D63.8 - Anemia in other chronic diseases classified elsewhere Subjective Principal diagnosis: Acute on chornic COPD Interval history: states sob is improved slightly. Denies N/V/D, chest pain. alert and conversing. Objective - Vital Signs Vital signs: Vital Signs Temp Pulse Resp BP Pulse Ox 05/22/17 06:47 98.2 F 102 17 126/73 96 05/22/17 05:30 98.3 F 108 16 123/81 98 05/22/17 04:37 18 97 05/21/17 23:51 98.1 F 110 16 122/67 96 05/21/17 23:07 16 94 05/21/17 19:49 17 97 05/21/17 19:36 97.8 F 112 16 114/70 96 05/21/17 19:00 97.7 F 16 131/82 05/21/17 18:50 136/69 05/21/17 18:35 118/83 05/21/17 18:20 129/87 05/21/17 18:05 124/86 05/21/17 17:50 138/78 05/21/17 17:35 139/89 05/21/17 17:20 125/87 05/21/17 17:05 116/75 05/21/17 16:50 115/64 05/21/17 16:35 118/69 05/21/17 16:20 124/78 05/21/17 16:05 120/76 05/21/17 15:50 97.7 F 16 114/71 05/21/17 12:05 101 20 123/77 96 05/21/17 11:50 125 24 160/96 99 05/21/17 11:45 125 24 160/96 99 05/21/17 11:30 97.8 F 122 20 155/93 97 05/21/17 10:47 97.8 F 113 18 120/73 98 05/21/17 08:59 98 05/21/17 08:27 20 96 Intake and Output 05/21/17 05/22/17 05/22/17 23:59 07:59 15:59 Intake Total 100 / 100 Output Total 2600 / 2600 Balance -2500 / -2500 Intake: IV Fluids 100 / 100 Unasyn 1,500 mg In 0.9 % 100 / 100 Sodium Chloride (Mini-Bag +) 100 ML @ 200 mls/hr IVPB Q12HR [facility] Rx#: [id number] Output: Urine 0 / 0 Total Dialysis (HD) 2600 / 2600 Output Other: Weight 66.8 kg 64.127 kg Blood Glucose* 139 Hemodialysis Net Fluid 2000 Removed (mL) Patient Weight 05/22/17 23:59 Weight 64.127 kg - General Appearance General appearance: Present: frail EENT: Present: PERRL, mucous membranes moist Neck: Present: no JVD Additional Comments: b/l basilar crackles and inspiratory wheezing. Cardiology: Present: no edema, regular rate, regular rhythm Gastrointestinal: Present: normoactive bowel sounds, no tenderness Integumentary: Present: no rash, warm and dry Neurologic: Present: no focal deficit, no asterixis, alert and oriented x3 Musculoskeletal: Present: no deformities, no erythema, no cyanosis, no clubbing Psychiatric: Present: mood/affect appropriate, cooperative - Lab 05/22/17 04:34 05/22/17 04:34 Most recent lab results Calcium 9.2 mg/dL (8.6-10.8) 05/22/17 04:34 Magnesium 1.9 mg/dL (1.6-2.6) 05/19/17 00:49 - VTE Documentation of Mechanical Device: Intermittent pneumatic compression device Consult Discharge Plan - Plan Referrals: Jeromy Wall MD [Primary Care Provider] - 05/29/17 2:00 pm (Web requested )
[2017-05-22] MEDS: Calcium Acetate 667 MG CAPSULE PO SCH ×3 (09:23→16:34)
[2017-05-22] MEDS: Multivit/Ca/Min/Fe/FA 1 TAB TABLET PO SCH (09:23)
[2017-05-22] MEDS: Gabapentin 100 MG CAPSULE PO SCH ×3 (09:23→20:49)
[2017-05-22] MEDS: Furosemide 40 MG TABLET PO SCH (09:23)
[2017-05-22] MEDS: Megestrol Acetate 400 MG/10 ML UDC PO SCH (09:24)
[2017-05-22] MEDS: MethylPREDNISolone 40 MG/ML VIAL IVP SCH ×2 (09:25→15:38)
[2017-05-22 10:47] LABS: Appearance of Body Fluid Cloudy (Clear); Volume of Body Fluid 18 mL
[2017-05-22] MEDS ORDERED: Saline Nasal Spray 44 ML BOTTLE NS PRN (10:52)
[2017-05-22] MEDS: Insulin LISPRO 300 UNITS/3 ML VIAL SQ SCH ×4 (11:59→20:46)
[2017-05-22] MEDS: levoFLOXacin 500 MG TABLET PO SCH (12:02)
--- NOTE | 2017-05-22 14:17 | Internal Med Progress Note ---
<Nando Sumner - Last Filed: 05/22/17 14:14> Date of Encounter: 05/22/17 Time of Encounter: 10:45 - Assessment and plan (1) Acute exacerbation of chronic obstructive airways disease Current Visit: Yes Status: Acute Assessment and plan: Acute COPD exacerbation secondary to sepsis due to possible right lung postobstructive pneumonia related to malignancy/possible gram-negative pneumonia Unlikely healthcare associated pneumonia Hypotension has improved considerably Continue Levaquin May resume Lasix, discontinue IV fluids Discontinued dexamethasone, continue Solu-Medrol, continue oxygen therapy (2) Aspiration into airway Current Visit: Yes Status: Acute Assessment and plan: Patient coughed up several blueberries this morning. He stated that he ate the blueberries on . -Pulmonology has been consulted. -bronchoscopy performed, showed RUL aspiration pneumonia. -cultures pending. Qualifiers: Qualified Code(s): T17.908A - Unspecified foreign body in respiratory tract, part unspecified causing other injury, initial encounter (3) Anemia Current Visit: Yes Status: Chronic Assessment and plan: Likely secondary to end-stage renal disease/chronic. -No evidence of bleeding, the patient has not had any bowel movements. -Order Hemoccult, continue omeprazole, monitor CBC. -GI consulted, will scope if Hb rapidly drops. 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 He states that is feeling well this morning. He has not coughed up any food since yesterday. Patient denies having any productive cough, shortness of breath at the moment, fever, chills, nausea, or vomiting. He has no other complaints at this time. - Constitutional Vitals: Temp Pulse Resp BP Pulse Ox 97.5 F L 102 17 115/72 98 05/22/17 11:21 05/22/17 11:21 05/22/17 11:21 05/22/17 11:21 05/22/17 11:21 General appearance: Present: A&O X 3 - Head Head exam: Present: atraumatic, normocephalic - Neck Neck exam general surgery: Present: supple, trachea midline. Absent: lymphadenopathy - Respiratory Respiratory exam: Present: rhonchi, wheezes. Absent: accessory muscle use, CTAB , rales - Cardiovascular Cardiovascular exam: Present: +S1, +S2, tachycardia. Absent: diastolic murmur, gallop, rubs, systolic murmur - GI/Abdominal GI/Abdominal exam: Present: normal bowel sounds, soft, no peritoneal signs. Absent: distended - Extremities Exam Extremities exam: Present: warm, radial pulses palpable and symetrical. Absent : calf tenderness, cyanotic, pedal edema - Skin Skin exam: Present: dry, intact Internal Medicine: Result - Labs CBC & Chem 7: 05/22/17 04:34 05/22/17 04:34 Labs: Short CBC 05/22/17 Range/Units 04:34 WBC 8.9 (4.3-11.1) K/mcL Hgb 8.2 L (12.9-16.9) g/dL Hct 27.8 L (37.5-50.1) % Plt Count 283 (140-400) K/mcL Neutrophils # 8.4 (1.6-8.9) K/mcL BMP 05/22/17 04:34 Sodium 138 Potassium 4.3 Chloride 98 Carbon Dioxide 28 BUN 47 H D Creatinine 3.39 H Glucose 144 H Calcium 9.2 - ABG Interpretation ABG results: PT/INR, D-dimer PT 13.5 Seconds (9.4-12.1) H 05/22/17 04:34 - VTE Documentation of Mechanical Device: Intermittent pneumatic compression device Consult Discharge Plan - Plan Referrals: Jeormy Wall MD [Primary Care Provider] - 05/29/17 2:00 pm (Web requested ) <Nehemiah Doyle - Last Filed: 05/22/17 18:55> Date of Encounter: 05/22/17 - Assessment and plan (1) Acute and chronic respiratory failure ([id number]) Current Visit: Yes Status: Acute Qualifiers: Respiratory failure complication: hypoxia Qualified Code(s): J96.21 - Acute and chronic respiratory failure with hypoxia (2) Acute exacerbation of chronic obstructive airways disease Current Visit: Yes Status: Acute (3) Aspiration into airway Current Visit: Yes Status: Acute Qualifiers: Encounter type: subsequent encounter Qualified Code(s): T17.908D - Unspecified foreign body in respiratory tract, part unspecified causing other injury, subsequent encounter (4) Type 2 diabetes mellitus Current Visit: No Status: Chronic Qualifiers: Diabetes mellitus complication status: with circulatory complication Diabetes mellitus complication detail: with other circulatory complications Diabetes mellitus exterminator helper termite insulin use: without exterminator helper termite use Qualified Code( s): E11.59 - Type 2 diabetes mellitus with other circulatory complications (5) Lung cancer Current Visit: No Status: Chronic Qualifiers: Laterality: right Lung location: hilum of lung Qualified Code(s): C34.01 - Malignant neoplasm of right main bronchus - Constitutional Vitals: Temp Pulse Resp BP Pulse Ox 98.2 F 101 18 107/64 94 05/22/17 16:07 05/22/17 16:07 05/22/17 16:15 05/22/17 16:07 05/22/17 16:15 Internal Medicine: Result - Labs CBC & Chem 7: 05/22/17 04:34 05/22/17 04:34 Labs: Short CBC 05/22/17 Range/Units 04:34 WBC 8.9 (4.3-11.1) K/mcL Hgb 8.2 L (12.9-16.9) g/dL Hct 27.8 L (37.5-50.1) % Plt Count 283 (140-400) K/mcL Neutrophils # 8.4 (1.6-8.9) K/mcL BMP 05/22/17 04:34 Sodium 138 Potassium 4.3 Chloride 98 Carbon Dioxide 28 BUN 47 H D Creatinine 3.39 H Glucose 144 H Calcium 9.2 - ABG Interpretation ABG results: PT/INR, D-dimer PT 13.5 Seconds (9.4-12.1) H 05/22/17 04:34 - Attending Attestation I examined this patient and my medical decision-making was reviewed with the Resident Physician on 05/22/17. I agree with the documented findings, disposition and treatment plan as described except to the extent set forth below. Mr. Guardado is currently admitted for acute pneumonia and presumed aspiration. He remains moderate to high risk due to potential for worsening respiratory status. Mr. Guardado is doing OK. Denies dyspnea. No CP. No fever or chills. Bronch cultures are pending. No GI symptoms. Exam Alert. Comfortable Mucus membranes moist Heart reg No wheeze Abd soft No edema I/P 1. Acute hypoxic resp failure 2. Aspiration 3. COPD exac Further diagnoses and plan as above.
[2017-05-23] MEDS: *HR* OxyCODONE Immed Rel 15 MG TABLET PO PRN ×4 (00:01→20:27)
[2017-05-23] MEDS: Ipratropium/Albuterol Neb 3 ML IH SCH ×6 (03:54→23:33)
[2017-05-23] MEDS: Ampicillin/Sulbactam 1,500 MG in 0.9 % Sodium Chloride Mini Bag 100 ML IVPB SCH ×2 (05:43→17:35)
[2017-05-23] MEDS: MethylPREDNISolone 40 MG/ML VIAL IVP SCH (05:43)
[2017-05-23] MEDS: Pantoprazole 40 MG VIAL IVP SCH ×2 (05:43→17:35)
[2017-05-23 07:21] LABS: Hematocrit 23.3 % (37.5-50.1); Hemoglobin 7.1 g/dL (12.9-16.9); Immature Granulocytes % 0.5 % (0-4); Lymphocytes # 0.5 K/mcL (0.6-4.6); Lymphocytes % 7.3 %; Mean Corpuscular HGB Conc 30.5 g/dL (31.6-35.5); Mean Corpuscular Hemoglobin 27.8 pg (28.0-33.3); Mean Corpuscular Volume 91.4 fL (83.0-100.0); Mean Platelet Volume 10.8 fL (9.4-12.4); Monocytes # 0.6 K/mcL (0.0-1.3); Monocytes % 9.1 %; Neutrophils # 5.2 K/mcL (1.6-8.9); Platelet Count 223 K/mcL (140-400); Red Blood Count 2.55 M/mcL (4.19-5.50); Red Cell Distribution Width 18.2 % (11.5-14.5); Segmented Neutrophils % 83.1 %
[2017-05-23 07:34] LABS: Calcium 7.9 mg/dL (8.6-10.8); Potassium 4.2 mEq/L (3.5-4.5)
[2017-05-23] MEDS: Megestrol Acetate 400 MG/10 ML UDC PO SCH (08:47)
[2017-05-23] MEDS: Multivit/Ca/Min/Fe/FA 1 TAB TABLET PO SCH (08:48)
[2017-05-23] MEDS: Calcium Acetate 667 MG CAPSULE PO SCH ×3 (08:48→17:35)
[2017-05-23] MEDS: Gabapentin 100 MG CAPSULE PO SCH ×3 (08:48→20:27)
[2017-05-23] MEDS: Furosemide 40 MG TABLET PO SCH (08:48)
[2017-05-23] MEDS: Insulin LISPRO 300 UNITS/3 ML VIAL SQ SCH ×4 (08:49→20:07)
--- NOTE | 2017-05-23 08:50 | Nephrology Progress Note ---
Date of Encounter: 05/23/17 Time of Encounter: 08:47 - Assessment and Plan (1) End stage chronic kidney disease Current Visit: Yes Status: Chronic continue MWF dialysis monitor strict I/O stable (2) Acute exacerbation of chronic obstructive airways disease Current Visit: Yes Status: Acute ON abx. steroids, bronchodialators management as per primary (3) Anemia Current Visit: Yes Status: Chronic hgb dropped this morning from 8.2 to 7.1 burning epigastric pain this morning Primary team notified and will notify GI. Qualifiers: Anemia type: other cause Other causes of anemia: chronic disease, other Qualified Code(s): D63.8 - Anemia in other chronic diseases classified elsewhere Subjective Principal diagnosis: Acute on chornic COPD Interval history: Complains of sob with exertion. Had epigastric pain this morning after urinating. Lasted 10-15 min. [place] like indigestion. Denies BM, melena, hematochezia, N/V. Objective - Vital Signs Vital signs: Vital Signs Temp Pulse Resp BP Pulse Ox 05/23/17 08:00 97.6 F 101 18 124/78 96 05/23/17 07:53 18 98 05/23/17 04:52 98.1 F 91 16 110/65 97 05/23/17 03:55 18 96 05/23/17 00:21 97.7 F 103 16 109/66 96 05/22/17 23:34 18 99 05/22/17 20:13 18 97 05/22/17 19:21 97.8 F 106 17 126/80 99 05/22/17 16:15 18 94 05/22/17 16:07 98.2 F 101 18 107/64 96 05/22/17 11:21 97.5 F L 102 17 115/72 98 05/22/17 11:09 18 97 Intake and Output 05/22/17 05/23/17 05/23/17 23:59 07:59 15:59 Intake Total 0 / 0 0 / 0 Output Total 300 / 300 Balance 0 / 0 -300 / -300 Intake: IV Fluids 0 / 0 Unasyn 1,500 mg In 0.9 % 0 / 0 Sodium Chloride (Mini-Bag +) 100 ML @ 200 mls/hr IVPB Q12HR [facility] Rx#: [id number] Oral 0 / 0 Output: Urine 300 / 300 Other: Blood Glucose* 155 209 - General Appearance General appearance: Present: frail EENT: Present: mucous membranes moist Neck: Present: no JVD Respiratory: Present: no kyphosis, no scoliosis Cardiology: Present: no edema, rapid rhythm (sinus tachycardia) Gastrointestinal: Present: normoactive bowel sounds, no tenderness Integumentary: Present: no rash, warm and dry Neurologic: Present: alert and oriented x3 Musculoskeletal: Present: no erythema, no cyanosis, no clubbing Psychiatric: Present: mood/affect appropriate - Lab 05/23/17 06:05 05/23/17 06:05 Most recent lab results Calcium 7.9 mg/dL (8.6-10.8) L 05/23/17 06:05 Magnesium 1.9 mg/dL (1.6-2.6) 05/19/17 00:49 - VTE Documentation of Mechanical Device: Intermittent pneumatic compression device Consult Discharge Plan - Plan Referrals: Jeromy Wall MD [Primary Care Provider] - 05/29/17 2:00 pm (Web requested )
[2017-05-23] MEDS ORDERED: 0.9 % Sodium Chloride 250 ML IVC PRN (09:12)
[2017-05-23] MEDS: levoFLOXacin 500 MG TABLET PO SCH ×2 (12:06→13:04)
--- NOTE | 2017-05-23 13:00 | Internal Med Progress Note ---
<Nando Sumner - Last Filed: 05/23/17 12:58> Date of Encounter: 05/23/17 Time of Encounter: 11:30 - Assessment and plan (1) Acute exacerbation of chronic obstructive airways disease Current Visit: Yes Status: Acute Assessment and plan: Acute COPD exacerbation secondary to sepsis due to possible right lung postobstructive pneumonia related to malignancy/possible gram-negative pneumonia Unlikely healthcare associated pneumonia Hypotension has improved considerably Continue Levaquin May resume Lasix, discontinue IV fluids Discontinued dexamethasone, continue Solu-Medrol, continue oxygen therapy (2) Aspiration into airway Current Visit: Yes Status: Acute Assessment and plan: Patient coughed up several blueberries this morning. He stated that he ate the blueberries on . -Pulmonology has been consulted. -bronchoscopy performed, showed RUL aspiration pneumonia. -cultures pending. Qualifiers: Encounter type: subsequent encounter Qualified Code(s): T17.908D - Unspecified foreign body in respiratory tract, part unspecified causing other injury, subsequent encounter (3) Anemia Current Visit: Yes Status: Chronic Assessment and plan: Likely secondary to end-stage renal disease/chronic. -No evidence of bleeding, the patient has not had any bowel movements. -Order Hemoccult, continue omeprazole, monitor CBC. -GI consulted, will scope if Hb rapidly drops. -Patient's hemoglobin this morning was 7.1. Qualifiers: Anemia type: other cause Other causes of anemia: chronic disease, other Qualified Code(s): D63.8 - Anemia in other chronic diseases classified elsewhere (4) ESRD (end stage renal disease) Current Visit: No Status: Chronic Assessment and plan: Continue hemodialysis. Patient's creatinine this morning was 4.01. 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 Qualifiers: Laterality: right Lung location: hilum of lung Qualified Code(s): C34.01 - Malignant neoplasm of right main bronchus (6) Type 2 diabetes mellitus Current Visit: No Status: Chronic Assessment and plan: Continue insulin sliding scale Qualifiers: Diabetes mellitus complication status: with circulatory complication Diabetes mellitus complication detail: with other circulatory complications Diabetes mellitus half-way insulin use: without half-way use Qualified Code( s): E11.59 - Type 2 diabetes mellitus with other circulatory complications - Subjective Interval history: Patient was seen and examined at bedside this morning. Patient states that his breathing has improved from yesterday. He states that this morning when he went to the bathroom, he experienced some lower abdominal pain. This pain was located primarily in the left lower quadrant. He describes this pain as a vague , cramp-like discomfort. Patient not having a bowel movement this morning was only able to urinate. Patient denies having this abdominal pain at the present time. He denies having any nausea, vomiting, or any other GI distress. He states that he feels like his breathing has improved, and is no longer short of breath. Patient was able to eat well this morning. He has no other complaints at this time. - Constitutional Vitals: Temp Pulse Resp BP Pulse Ox 97.9 F 93 16 110/65 97 05/23/17 12:01 05/23/17 12:01 05/23/17 12:01 05/23/17 12:01 05/23/17 12:01 General appearance: Present: A&O X 3 - Head Head exam: Present: atraumatic, normocephalic - Neck Neck exam general surgery: Present: supple, trachea midline. Absent: lymphadenopathy - Respiratory Respiratory exam: Present: CTAB. Absent: accessory muscle use, rales, rhonchi, wheezes - Cardiovascular Cardiovascular exam: Present: +S1, +S2, tachycardia. Absent: diastolic murmur, gallop, RRR, rubs, systolic murmur Additional comments: Patient is still tachycardic. Heart rate this morning was 101. Patient's home Coreg has been resumed. Heart rate has decreased since admission. - GI/Abdominal GI/Abdominal exam: Present: normal bowel sounds, soft, no peritoneal signs. Absent: distended, tenderness Additional comments: The pain that the patient had a left lower quadrant is not reproducible by palpation. - Skin Skin exam: Present: dry, intact Internal Medicine: Result - Labs CBC & Chem 7: 05/23/17 06:05 05/23/17 06:05 Labs: Short CBC 05/23/17 Range/Units 06:05 WBC 6.3 (4.3-11.1) K/mcL Hgb 7.1 L (12.9-16.9) g/dL Hct 23.3 L (37.5-50.1) % Plt Count 223 (140-400) K/mcL Neutrophils # 5.2 (1.6-8.9) K/mcL BMP 05/23/17 06:05 Sodium 140 Potassium 4.2 Chloride 100 Carbon Dioxide 28 BUN 78 H D Creatinine 4.01 H Glucose 135 H Calcium 7.9 L - ABG Interpretation ABG results: PT/INR, D-dimer PT 13.5 Seconds (9.4-12.1) H 05/22/17 04:34 - VTE Documentation of Mechanical Device: Intermittent pneumatic compression device Consult Discharge Plan - Plan Referrals: Jeromy Wall MD [Primary Care Provider] - 05/29/17 2:00 pm (Web requested ) <Nehemiah Doyle - Last Filed: 05/23/17 19:13> Date of Encounter: 05/23/17 - Assessment and plan (1) Acute and chronic respiratory failure ([id number]) Current Visit: Yes Status: Acute Qualifiers: Respiratory failure complication: hypoxia Qualified Code(s): J96.21 - Acute and chronic respiratory failure with hypoxia (2) Acute exacerbation of chronic obstructive airways disease Current Visit: Yes Status: Acute (3) Aspiration into airway Current Visit: Yes Status: Acute Qualifiers: Encounter type: subsequent encounter Qualified Code(s): T17.908D - Unspecified foreign body in respiratory tract, part unspecified causing other injury, subsequent encounter (4) Type 2 diabetes mellitus Current Visit: No Status: Chronic Qualifiers: Diabetes mellitus complication status: with circulatory complication Diabetes mellitus complication detail: with other circulatory complications Diabetes mellitus half-way insulin use: without boulevard glassware replacer use Qualified Code( s): E11.59 - Type 2 diabetes mellitus with other circulatory complications (5) Lung cancer Current Visit: No Status: Chronic Qualifiers: Laterality: right Lung location: hilum of lung Qualified Code(s): C34.01 - Malignant neoplasm of right main bronchus (6) Anemia Current Visit: Yes Status: Chronic Qualifiers: Anemia type: other cause Other causes of anemia: chronic disease, other Qualified Code(s): D63.8 - Anemia in other chronic diseases classified elsewhere - Constitutional Vitals: Temp Pulse Resp BP Pulse Ox 97.7 F 75 18 131/85 97 05/23/17 17:40 05/23/17 17:40 05/23/17 17:40 05/23/17 18:25 05/23/17 12:01 Internal Medicine: Result - Labs CBC & Chem 7: 05/23/17 06:05 05/23/17 06:05 Labs: Short CBC 05/23/17 Range/Units 06:05 WBC 6.3 (4.3-11.1) K/mcL Hgb 7.1 L (12.9-16.9) g/dL Hct 23.3 L (37.5-50.1) % Plt Count 223 (140-400) K/mcL Neutrophils # 5.2 (1.6-8.9) K/mcL BMP 05/23/17 06:05 Sodium 140 Potassium 4.2 Chloride 100 Carbon Dioxide 28 BUN 78 H D Creatinine 4.01 H Glucose 135 H Calcium 7.9 L - ABG Interpretation ABG results: PT/INR, D-dimer PT 13.5 Seconds (9.4-12.1) H 05/22/17 04:34 - Attending Attestation I examined this patient and my medical decision-making was reviewed with the Resident Physician on 05/23/17. I agree with the documented findings, disposition and treatment plan as described except to the extent set forth below. Mr. Guardado is currently hospitalized for hypoxia and pneumonia. He remains moderate to high risk due to potential for worsening respiratory status. Mr. Guardado feels OK but has had some epigastric discomfort. Hemoglobin lower today. No fever or chills. Bronch cultures pending. Exam Alert. Comfortable Mucus membranes moist Heart reg Rhonchi on R. Abd soft I/P 1. Pneumonia 2. Anemia for EGD in AM Further diagnoses and plan as above.
[2017-05-23] MEDS: predniSONE 20 MG TABLET PO SCH (17:35)
[2017-05-24] MEDS: *HR* OxyCODONE Immed Rel 15 MG TABLET PO PRN ×4 (02:28→22:31)
[2017-05-24] MEDS: Ipratropium/Albuterol Neb 3 ML IH SCH ×5 (04:55→19:51)
[2017-05-24 05:43] LABS: Eosinophils % 0.1 %; Hematocrit 31.5 % (37.5-50.1); Lymphocytes # 0.5 K/mcL (0.6-4.6); Lymphocytes % 7.1 %; Mean Corpuscular HGB Conc 31.7 g/dL (31.6-35.5); Mean Corpuscular Hemoglobin 28.1 pg (28.0-33.3); Mean Corpuscular Volume 88.5 fL (83.0-100.0); Monocytes # 0.8 K/mcL (0.0-1.3); Monocytes % 10.8 %; Neutrophils # 5.8 K/mcL (1.6-8.9); Platelet Count 247 K/mcL (140-400); Red Blood Count 3.56 M/mcL (4.19-5.50); Red Cell Distribution Width 17.4 % (11.5-14.5)
[2017-05-24 05:54] LABS: Calcium 8.6 mg/dL (8.6-10.8); Potassium 3.9 mEq/L (3.5-4.5)
[2017-05-24] MEDS: Pantoprazole 40 MG VIAL IVP SCH ×2 (06:30→18:42)
[2017-05-24] MEDS: Ampicillin/Sulbactam 1,500 MG in 0.9 % Sodium Chloride Mini Bag 100 ML IVPB SCH (06:30)
[2017-05-24] MEDS: Insulin LISPRO 300 UNITS/3 ML VIAL SQ SCH ×4 (08:19→20:06)
[2017-05-24] MEDS: Megestrol Acetate 400 MG/10 ML UDC PO SCH ×2 (08:19→08:25)
[2017-05-24] MEDS: predniSONE 20 MG TABLET PO SCH (08:20)
[2017-05-24] MEDS: Gabapentin 100 MG CAPSULE PO SCH ×3 (08:20→20:05)
[2017-05-24] MEDS: Furosemide 40 MG TABLET PO SCH (08:20)
[2017-05-24] MEDS: Multivit/Ca/Min/Fe/FA 1 TAB TABLET PO SCH (08:21)
[2017-05-24] MEDS: Calcium Acetate 667 MG CAPSULE PO SCH ×3 (08:22→16:16)
--- NOTE | 2017-05-24 08:40 | Nephrology Progress Note ---
Date of Encounter: 05/24/17 Time of Encounter: 08:37 - Assessment and Plan (1) End stage chronic kidney disease Current Visit: Yes Status: Chronic continue MWF dialysis monitor strict I/O stable (2) Acute exacerbation of chronic obstructive airways disease Current Visit: Yes Status: Acute ON abx. steroids, bronchodialators management as per primary (3) Anemia Current Visit: Yes Status: Chronic Status post ERCP transfusion EGD planned for today Hemoglobin stable at 10.0 Qualifiers: Anemia type: other cause Other causes of anemia: chronic disease, other Qualified Code(s): D63.8 - Anemia in other chronic diseases classified elsewhere Subjective Principal diagnosis: Acute on chornic COPD Interval history: States exertional sob improved. Denies epigastric pain, N/V/D. Underwent dialysis yesterday and 2PBRC replaced. Objective - Vital Signs Vital signs: Vital Signs Temp Pulse Resp BP Pulse Ox 05/24/17 08:00 16 99 05/24/17 04:57 16 99 05/24/17 04:52 98.1 F 96 16 106/61 97 05/24/17 00:13 98.1 F 99 16 117/68 98 05/23/17 19:48 97.6 F 112 16 157/95 95 05/23/17 19:20 97.4 F L 18 141/78 05/23/17 18:55 125/90 05/23/17 18:40 147/86 05/23/17 18:25 131/85 05/23/17 18:10 131/86 05/23/17 17:55 136/76 05/23/17 17:40 97.7 F 75 18 135/75 05/23/17 17:25 136/99 05/23/17 17:21 97.4 F L 84 18 135/70 05/23/17 17:20 135/70 05/23/17 17:10 147/89 05/23/17 17:06 97.4 F L 81 18 135/74 05/23/17 17:05 135/74 05/23/17 16:55 124/78 05/23/17 16:40 90 18 120/71 05/23/17 16:25 83/52 05/23/17 16:20 97.4 F L 93 18 122/78 05/23/17 16:10 98/60 05/23/17 16:05 97 F L 94 18 112/69 05/23/17 15:55 109/69 05/23/17 15:40 130/72 05/23/17 15:25 95 F L 18 109/79 05/23/17 12:01 97.9 F 93 16 110/65 97 05/23/17 11:18 18 96 05/23/17 09:01 96 Intake and Output 05/23/17 05/24/17 05/24/17 23:59 07:59 15:59 Intake Total 1400 / 1400 Output Total 4300 / 4300 Balance -2900 / -2900 Intake: Blood Product 1400 / 1400 Rbcs Leuko Poor As-3 2nd 700 / 700 Unit [id number] Rbcs Leuko Poor As-3 Ph 700 / 700 Unit [id number] Output: Urine 0 / 0 Total Dialysis (HD) 4300 / 4300 Output Other: Weight 64 kg Blood Glucose* 125 127 Hemodialysis Net Fluid 3000 Removed (mL) Patient Weight 05/24/17 23:59 Weight 64 kg - General Appearance General appearance: Present: well-nourished EENT: Present: PERRL, mucous membranes moist Neck: Present: JVD, supple Additional Comments: Coarse breath sounds bilaterally. Diminished. Additional Comments: Regular rate rhythm Additional Comments: Soft nontender nondistended positive bowel sounds Integumentary: Present: warm and dry Neurologic: Present: alert and oriented x3 Musculoskeletal: Present: no erythema, no cyanosis, no clubbing Psychiatric: Present: mood/affect appropriate - Lab 05/24/17 05:23 05/24/17 05:23 Most recent lab results Calcium 8.6 mg/dL (8.6-10.8) 05/24/17 05:23 Magnesium 1.9 mg/dL (1.6-2.6) 05/19/17 00:49 - VTE Documentation of Mechanical Device: Intermittent pneumatic compression device Consult Discharge Plan - Plan Referrals: Jeromy Wall MD [Primary Care Provider] - 05/29/17 2:00 pm (Web requested )
--- NOTE | 2017-05-24 09:41 | Internal Med Progress Note ---
<Nando Sumner - Last Filed: 05/24/17 09:39> Date of Encounter: 05/24/17 Time of Encounter: 09:30 - Assessment and plan (1) Acute exacerbation of chronic obstructive airways disease Current Visit: Yes Status: Acute Assessment and plan: Acute COPD exacerbation secondary to sepsis due to possible right lung postobstructive pneumonia related to malignancy/possible gram-negative pneumonia Unlikely healthcare associated pneumonia Hypotension has improved considerably Continue Levaquin May resume Lasix, discontinue IV fluids Discontinued dexamethasone, continue Solu-Medrol, continue oxygen therapy (2) Aspiration into airway Current Visit: Yes Status: Acute Assessment and plan: Patient coughed up several blueberries this morning. He stated that he ate the blueberries on . -Pulmonology has been consulted. -bronchoscopy performed, showed RUL aspiration pneumonia. -cultures have grown yeast. -Continue antibiotics. Qualifiers: Encounter type: subsequent encounter Qualified Code(s): T17.908D - Unspecified foreign body in respiratory tract, part unspecified causing other injury, subsequent encounter (3) Anemia Current Visit: Yes Status: Chronic Assessment and plan: Likely secondary to end-stage renal disease/chronic. -No evidence of bleeding, the patient has not had any bowel movements. -Order Hemoccult, continue omeprazole, monitor CBC. -GI consulted, will scope if Hb rapidly drops. -Patient's hemoglobin this morning was 10.0. Qualifiers: Anemia type: other cause Other causes of anemia: chronic disease, other Qualified Code(s): D63.8 - Anemia in other chronic diseases classified elsewhere (4) ESRD (end stage renal disease) Current Visit: No Status: Chronic Assessment and plan: Continue hemodialysis. Patient's creatinine this morning was 3.05. Patient's creatinine has been decreasing over the last 24 hours. 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 Qualifiers: Laterality: right Lung location: hilum of lung Qualified Code(s): C34.01 - Malignant neoplasm of right main bronchus (6) Type 2 diabetes mellitus Current Visit: No Status: Chronic Assessment and plan: Continue insulin sliding scale Qualifiers: Diabetes mellitus complication status: with circulatory complication Diabetes mellitus complication detail: with other circulatory complications Diabetes mellitus long term care pharmacist insulin use: without long term care pharmacist use Qualified Code( s): E11.59 - Type 2 diabetes mellitus with other circulatory complications - Subjective Interval history: Patient was seen and examined at bedside this morning. Patient states that his breathing has improved from yesterday. He states that the abdominal pain that he was having in his lower abdomen has subsided. Patient denies having any more bouts of diarrhea. He states that his breathing is gradually improving, although he does still have a cough. He denies fever, chills, nausea, vomiting , or GI distress. - Constitutional Vitals: Temp Pulse Resp BP Pulse Ox 97.8 F 88 15 117/63 100 05/24/17 08:47 05/24/17 08:47 05/24/17 08:47 05/24/17 08:47 05/24/17 08:47 General appearance: Present: A&O X 3 - ENT ENT exam: Present: mucous membranes moist - Neck Neck exam general surgery: Present: supple, trachea midline. Absent: lymphadenopathy - Respiratory Respiratory exam: Present: rhonchi, stridor, wheezes Additional comments: Patient has crackles and both inspiratory and expiratory wheezing in the right lung. - Cardiovascular Cardiovascular exam: Present: RRR, +S1, +S2. Absent: diastolic murmur, gallop, rubs, systolic murmur - Psychiatric Psychiatric exam: Present: normal affect, normal mood - Skin Skin exam: Present: dry, intact Internal Medicine: Result - Labs CBC & Chem 7: 05/24/17 05:23 05/24/17 05:23 Labs: Short CBC 05/24/17 Range/Units 05:23 WBC 7.1 (4.3-11.1) K/mcL Hgb 10.0 L D (12.9-16.9) g/dL Hct 31.5 L (37.5-50.1) % Plt Count 247 (140-400) K/mcL Neutrophils # 5.8 (1.6-8.9) K/mcL BMP 05/24/17 05:23 Sodium 137 Potassium 3.9 Chloride 96 L Carbon Dioxide 35 H BUN 49 H D Creatinine 3.05 H Glucose 109 H Calcium 8.6 - ABG Interpretation ABG results: PT/INR, D-dimer PT 13.5 Seconds (9.4-12.1) H 05/22/17 04:34 - VTE Documentation of Mechanical Device: Intermittent pneumatic compression device Consult Discharge Plan - Plan Referrals: Jeromy Wall MD [Primary Care Provider] - 05/29/17 2:00 pm (Web requested ) <Nehemiah Doyle - Last Filed: 05/24/17 18:50> Date of Encounter: 05/24/17 - Assessment and plan (1) Acute and chronic respiratory failure ([id number]) Current Visit: Yes Status: Acute Qualifiers: Respiratory failure complication: hypoxia Qualified Code(s): J96.21 - Acute and chronic respiratory failure with hypoxia (2) Acute exacerbation of chronic obstructive airways disease Current Visit: Yes Status: Acute (3) Aspiration into airway Current Visit: Yes Status: Acute Qualifiers: Encounter type: subsequent encounter Qualified Code(s): T17.908D - Unspecified foreign body in respiratory tract, part unspecified causing other injury, subsequent encounter (4) Type 2 diabetes mellitus Current Visit: No Status: Chronic Qualifiers: Diabetes mellitus complication status: with circulatory complication Diabetes mellitus complication detail: with other circulatory complications Diabetes mellitus long term care pharmacist insulin use: without senior care use Qualified Code( s): E11.59 - Type 2 diabetes mellitus with other circulatory complications (5) Lung cancer Current Visit: No Status: Chronic Qualifiers: Laterality: right Lung location: hilum of lung Qualified Code(s): C34.01 - Malignant neoplasm of right main bronchus (6) Anemia Current Visit: Yes Status: Chronic Qualifiers: Anemia type: other cause Other causes of anemia: chronic disease, other Qualified Code(s): D63.8 - Anemia in other chronic diseases classified elsewhere - Constitutional Vitals: Temp Pulse Resp BP Pulse Ox 97.7 F 92 18 130/76 100 05/24/17 15:51 05/24/17 15:51 05/24/17 16:14 05/24/17 15:51 05/24/17 16:14 Internal Medicine: Result - Labs CBC & Chem 7: 05/24/17 05:23 05/24/17 05:23 Labs: Short CBC 05/24/17 Range/Units 05:23 WBC 7.1 (4.3-11.1) K/mcL Hgb 10.0 L D (12.9-16.9) g/dL Hct 31.5 L (37.5-50.1) % Plt Count 247 (140-400) K/mcL Neutrophils # 5.8 (1.6-8.9) K/mcL BMP 05/24/17 05:23 Sodium 137 Potassium 3.9 Chloride 96 L Carbon Dioxide 35 H BUN 49 H D Creatinine 3.05 H Glucose 109 H Calcium 8.6 - ABG Interpretation ABG results: PT/INR, D-dimer PT 13.5 Seconds (9.4-12.1) H 05/22/17 04:34 - Attending Attestation I examined this patient and my medical decision-making was reviewed with the Resident Physician on 05/24/17. I agree with the documented findings, disposition and treatment plan as described except to the extent set forth below. Mr. Guardado is currently admitted for resp failure and anemia. He remains moderate risk due to anemia and risk for further pulmonary issues. Mr Guardado feels OK today. Awaiting EGD. No fever or chills. No bleeding noted. No GI issues. Exam Alert. Comfortable Mucus membranes dry Heart reg Rhonchi present Abd soft No edema I/P 1 Resp failure 2. COPD 3. Anemia Further diagnoses and plan as above.
--- NOTE | 2017-05-24 11:34 | Anesthesia Evaluation PreOp ---
Date of Encounter: 05/24/17 Time of Encounter: 11:32 - Past History Planned Operation: EGD Cardiac History: [facility] (Troponin = 0.07 on admission. Likely demand ischemia w/ Sepsis & Anemia), CHF (Acute on Chronic systolic dysfx. BNP >2200 - maintained on Lasix. LVEF 45-50%, Atypical septal motion c/w post-op status), HTN ( maintained on Coreg), Hyperlipidemia, Cardiac Surgery (CABG x 6v), Other (CAD/ PVDz. ECHO03/09/2017 -) Pulmonary History: Former smoker (2ppd x 40yrs. "Quit" 2015), COPD ( maintained on Symbicort, Proventil, Albuterol, Incruse Ellipta, Decadron, Home O2), Other (Squamous Cell Lung Ca.) DIRECTOR OF INTELLIGENCE History: Other (Anxiety/Depression. Chronic Pain maintained on Gabapentin, Oxycodone,) Other Medical History: Renal (ESRD w/MWF dialysis), Diabetes Type II ( maintained on Glimepiride,), GERD (maintained on Pepcid), Other (Admitted w/ Sepsis 05/18/2017. Hx of Cancer) Anesthesia History: No Prior Anesthetic Complications, Past Anesthesia ( Angioplasty/Stent placment, B-CEA, CABG x 6v, orthopedic surgeries) Alcohol Use: none Drug use: none Medications and Allergies Famotidine [Pepcid] 10 mg PO BID #60 tablet 07/03/15 [Rx] Albuterol Sulfate [Albuterol Inhaler] 2 puff IH Q4HR 07/29/15 [History] Budesonide/Formoterol 160/4.5 [Symbicort] 2 puff IH BIDR 07/29/15 [History] Gabapentin [Neurontin] 100 mg PO TID 07/29/15 [History] Glimepiride [Amaryl] 2 mg PO DAILY 07/29/15 [History] Calcium Acetate [Phos-LO] 667 mg PO TIDWM #90 capsule 10/02/15 [Rx] Carvedilol [Coreg] 25 mg PO BID #60 tablet 10/02/15 [Rx] Furosemide [Lasix] 40 mg PO DAILY 08/31/16 [History] Oxygen 2 l NS AD 08/31/16 [History] Albuterol Neb [Proventil Neb] 2.5 mg IH Q4HR PRN #30 vial.neb 09/03/16 [Rx] Multivitamin [Multivitamins] 1 cap PO DAILY 11/03/16 [History] Magic Mouthwash [Magic Mouthwash BLM] 10 ml PO QID PRN #240 ml 12/18/16 [Rx] Umeclidinium [place] [Incruse Ellipta] 62.5 mcg IH DAILY #1 blst.w.dev 01/30/17 [Rx] Ondansetron [Zofran ODT] 8 mg SL Q4HR PRN #60 tab.rapdis 02/28/17 [Rx] Docusate [Colace] 100 mg PO DAILY #20 capsule 03/02/17 [Rx] Polyethylene Glycol 3350 [MiraLAX Powder Bulk 17.9 Oz] 1 scoop PO DAILY #510 gm 03/02/17 [Rx] Dexamethasone 1 mg PO DAILY #14 tab 04/12/17 [Rx] Megestrol Acetate [Megace] 800 mg PO DAILY #400 mls 04/12/17 [Rx] Oxycodone HCl [Roxicodone 30 MG Immed Release] 30 mg PO Q6HR PRN #90 tab [Rx] levoFLOXacin [Levaquin] 250 mg PO Q48H 05/18/17 [History] Allergies pollen extracts Allergy (Verified 05/18/17 12:12) Itching shellfish derived Adverse Reaction (Verified 05/18/17 12:12) Nausea IVP DYE Allergy (Intermediate, Uncoded 01/20/17 23:57) Vomiting - Meds/Allergy Pre-op Review Medications Reviewed: Yes Allergies Reviewed: Yes Beta Blockers on Current Med List: Yes (CArvedilol) If Beta Blockers taken, Date/Time (Last Dose taken): 05/24/17 @ 0819 Anesthesia Results - Labs 05/24/17 05:23 05/24/17 05:23 Laboratory Tests 05/18/17 05/19/17 05/19/17 11:28 00:49 00:49 PT INR APTT 29.3 Est GFR (Non-Af Amer) Glucose POC Glucose Est Mean Plasma Glucose 91 Hemoglobin A1c 4.8 B-Natriuretic Peptide 2270 H 05/22/17 05/24/17 05/24/17 04:34 05:23 08:03 PT 13.5 H INR 1.2 APTT Est GFR (Non-Af Amer) 21 L Glucose 109 H POC Glucose 127 H Est Mean Plasma Glucose Hemoglobin A1c B-Natriuretic Peptide Laboratory Results Impressions Chest CT 05/18/17 15:30 IMPRESSION: 1. Persistent right perihilar opacity, likely the site of the patient's primary tumor, with interval progression of reticulonodular and ground-glass opacity throughout the right upper lobe, which while could represent postobstructive pneumonia, is concerning for lymphangitic spread of tumor. 2. New 10 mm subpleural nodule within the anterior right upper lobe is concerning for intrapulmonary metastatic disease. 3. New small bilateral pleural effusions, right greater than left, with new reticulonodular and ground-glass opacity throughout the right middle lobe and right lower lobe, which while could represent a combination of pulmonary edema and superimposed pneumonia, the possibility of lymphangitic spread of tumor is raised. 4. Stable mild mediastinal lymphadenopathy. RECOMMENDATIONS: Suggest appropriate clinical treatment, and continued chest CT imaging follow-up as per oncologic protocol. D/ / 05/18/2017 16:16:15 Jessee Rockwell MD / bcarter Interpreting Provider: Jessee Rockwell MD Chest X-Ray 05/20/17 23:41 IMPRESSION: Progressive airspace disease in the mid right lung could represent pneumonia or aspiration. D/ / Didier Carvajal MD / Didier Carvajal MD Interpreting Provider: Didier Carvajal MD Anesthesia Exam Vital Signs Temp Pulse Resp BP Pulse Ox 05/24/17 11:26 16 96 05/24/17 08:47 97.8 F 88 15 117/63 100 05/24/17 08:32 99 05/24/17 08:00 16 99 05/24/17 04:57 16 99 05/24/17 04:52 98.1 F 96 16 106/61 97 05/24/17 00:13 98.1 F 99 16 117/68 98 05/23/17 19:48 97.6 F 112 16 157/95 95 05/23/17 19:20 97.4 F L 18 141/78 05/23/17 18:55 125/90 05/23/17 18:40 147/86 05/23/17 18:25 131/85 05/23/17 18:10 131/86 05/23/17 17:55 136/76 05/23/17 17:40 97.7 F 75 18 135/75 05/23/17 17:25 136/99 05/23/17 17:21 97.4 F L 84 18 135/70 05/23/17 17:20 135/70 05/23/17 17:10 147/89 05/23/17 17:06 97.4 F L 81 18 135/74 05/23/17 17:05 135/74 05/23/17 16:55 124/78 05/23/17 16:40 90 18 120/71 05/23/17 16:25 83/52 05/23/17 16:20 97.4 F L 93 18 122/78 05/23/17 16:10 98/60 05/23/17 16:05 97 F L 94 18 112/69 05/23/17 15:55 109/69 05/23/17 15:40 130/72 05/23/17 15:25 95 F L 18 109/79 05/23/17 12:01 97.9 F 93 16 110/65 97 Intake and Output 05/23/17 05/24/17 05/24/17 23:59 07:59 15:59 Intake Total 1400 / 1400 20 / 20 Output Total 4300 / 4300 0 / 0 Balance -2900 / -2900 20 / 20 Intake: Oral 20 / 20 Blood Product 1400 / 1400 Rbcs Leuko Poor As-3 2nd 700 / 700 Unit [id number] Rbcs Leuko Poor As-3 Ph 700 / 700 Unit [id number] Output: Urine 0 / 0 0 / 0 Total Dialysis (HD) 4300 / 4300 Output Other: Weight 64 kg Blood Glucose* 125 127 Hemodialysis Net Fluid 3000 Removed (mL) Patient Weight 05/24/17 23:59 Weight 64 kg Height: 5'7" Weight: 141 NPO (# of Hours): MNOc - HEENT Pupil (Motor): Pupils equal, EOMI Mallampati: II Teeth: Normal Oral Opening: Greater than 3 - DIRECTOR OF INTELLIGENCE LOC: Oriented DIRECTOR OF INTELLIGENCE Motor: Normal RUE, Normal LUE, Normal RLE, Normal LLE, Normal Face DIRECTOR OF INTELLIGENCE Sensory: Normal: RUE, LUE, RLE, LLE, Face - Cardiac Rhythm: Regular Murmur: Systolic JVD: No - Pulmonary Breath Sounds: bilateral Rales, bilateral Rhonchi Respiratory Effort: Symmetrical Anesthesia Assess/Plan ASA Score: 4 (COPD, Squamous cell Lung CA, ESRD/Dialysis MWF, CAD, HTN, Chol, CAD/PVDz) Modified [place] Scale for Level of Consciousness: Cooperative, oriented, and tranquil Anesthetic Plan: General, MAC Monitoring Plan: Standard Monitors Recovery Plan: PACU Anes Supervising Prov Stmt: Pt seen/evaluated, R&B discussed, questions answered and consent obtained. Sakina Larkin MD
[2017-05-24] MEDS: levoFLOXacin 500 MG TABLET PO SCH (12:21)
[2017-05-24] MEDS ORDERED: Albuterol 2.5 MG/3 ML NEBULIZER ONE (13:38)
[2017-05-24] MEDS: Amoxicillin/Clavulanate 500 MG TABLET PO SCH (16:16)
[2017-05-25] MEDS: Ipratropium/Albuterol Neb 3 ML IH SCH ×5 (00:24→16:29)
[2017-05-25 04:17] LABS: Hematocrit 31.7 % (37.5-50.1); Hemoglobin 9.8 g/dL (12.9-16.9); Lymphocytes # 0.5 K/mcL (0.6-4.6); Lymphocytes % 6.5 %; Mean Corpuscular HGB Conc 30.9 g/dL (31.6-35.5); Mean Corpuscular Hemoglobin 27.9 pg (28.0-33.3); Mean Corpuscular Volume 90.3 fL (83.0-100.0); Mean Platelet Volume 10.4 fL (9.4-12.4); Monocytes # 0.5 K/mcL (0.0-1.3); Monocytes % 6.6 %; Neutrophils # 6.1 K/mcL (1.6-8.9); Platelet Count 253 K/mcL (140-400); Red Blood Count 3.51 M/mcL (4.19-5.50); Red Cell Distribution Width 17.1 % (11.5-14.5); Segmented Neutrophils % 85.9 %
[2017-05-25 04:40] LABS: Calcium 8.3 mg/dL (8.6-10.8); Potassium 4.6 mEq/L (3.5-4.5)
[2017-05-25] MEDS: *HR* OxyCODONE Immed Rel 15 MG TABLET PO PRN ×2 (04:54→12:12)
[2017-05-25] MEDS: Pantoprazole 40 MG VIAL IVP SCH (06:08)
[2017-05-25] MEDS ORDERED: 0.9 % Sodium Chloride 250 ML IVC PRN (07:54)
[2017-05-25] MEDS: Gabapentin 100 MG CAPSULE PO SCH ×2 (10:03→15:27)
[2017-05-25] MEDS: Calcium Acetate 667 MG CAPSULE PO SCH ×2 (10:03→12:14)
[2017-05-25] MEDS: Megestrol Acetate 400 MG/10 ML UDC PO SCH (10:03)
[2017-05-25] MEDS: predniSONE 20 MG TABLET PO SCH (10:03)
[2017-05-25] MEDS: Multivit/Ca/Min/Fe/FA 1 TAB TABLET PO SCH (10:03)
[2017-05-25] MEDS: Furosemide 40 MG TABLET PO SCH (10:04)
[2017-05-25] MEDS: Amoxicillin/Clavulanate 500 MG TABLET PO SCH ×2 (10:04→15:27)
[2017-05-25] MEDS: Insulin LISPRO 300 UNITS/3 ML VIAL SQ SCH ×2 (10:05→12:14)
--- NOTE | 2017-05-25 11:26 | Discharge Summary ---
<Alexander Lopez T - Last Filed: 05/25/17 17:04> Date of Encounter: 05/25/17 - Discharge Medications Prescriptions: Amoxicillin/Clavulanate [Augmentin] 250 mg PO BIDWM #6 tablet Home Medications: Famotidine [Pepcid] 10 mg PO BID #60 tablet 07/03/15 [Rx] Albuterol Sulfate [Albuterol Inhaler] 2 puff IH Q4HR 07/29/15 [History] Budesonide/Formoterol 160/4.5 [Symbicort] 2 puff IH BIDR 07/29/15 [History] Gabapentin [Neurontin] 100 mg PO TID 07/29/15 [History] Glimepiride [Amaryl] 2 mg PO DAILY 07/29/15 [History] Calcium Acetate [Phos-LO] 667 mg PO TIDWM #90 capsule 10/02/15 [Rx] Carvedilol [Coreg] 25 mg PO BID #60 tablet 10/02/15 [Rx] Furosemide [Lasix] 40 mg PO DAILY 08/31/16 [History] Oxygen 2 l NS AD 08/31/16 [History] Albuterol Neb [Proventil Neb] 2.5 mg IH Q4HR PRN #30 vial.neb 09/03/16 [Rx] Multivitamin [Multivitamins] 1 cap PO DAILY 11/03/16 [History] Magic Mouthwash [Magic Mouthwash BLM] 10 ml PO QID PRN #240 ml 12/18/16 [Rx] Umeclidinium [place] [Incruse Ellipta] 62.5 mcg IH DAILY #1 blst.w.dev 01/30/17 [Rx] Ondansetron [Zofran ODT] 8 mg SL Q4HR PRN #60 tab.rapdis 02/28/17 [Rx] Docusate [Colace] 100 mg PO DAILY #20 capsule 03/02/17 [Rx] Polyethylene Glycol 3350 [MiraLAX Powder Bulk 17.9 Oz] 1 scoop PO DAILY #510 gm 03/02/17 [Rx] Dexamethasone 1 mg PO DAILY #14 tab 04/12/17 [Rx] Megestrol Acetate [Megace] 800 mg PO DAILY #400 mls 04/12/17 [Rx] Oxycodone HCl [Roxicodone 30 MG Immed Release] 30 mg PO Q6HR PRN #90 tab [Rx] levoFLOXacin [Levaquin] 250 mg PO Q48H 05/18/17 [History] Amoxicillin/Clavulanate [Augmentin] 250 mg PO BIDWM #6 tablet 05/25/17 [Rx] Allergies/Adverse Reactions: Allergies pollen extracts Allergy (Verified 05/18/17 12:12) Itching shellfish derived Adverse Reaction (Verified 05/18/17 12:12) Nausea IVP DYE Allergy (Intermediate, Uncoded 01/20/17 23:57) Vomiting Date of admission: 05/18/17 14:34 Primary care physician: Jeromy Wall MD Consults: 05/18/17 14:49 Consult to Nutrition [CONS] Routine Comment: Consulting Provider: NUTRITION Reason for Dietary Consult: Diet Education 05/18/17 16:45 Consult to Dialysis [CONS] ONCE 05/21/17 07:40 Consult to Speech Therapy [CONS] Routine Comment: Evaluate, develop and implement POC Reason for Consult: coughing up food Time Notified: 07:41 Call Completed: Yes 05/21/17 09:45 Consult to Dialysis [CONS] ONCE 05/21/17 10:01 Consult to Pulmonology [CONS] Routine Consulting Provider: Pulm Crit Care & Sleep [place] Reason for Consult: H/o lung CA. Admitted for PNA, possible post- obstructive. Now coughing up blueberry from 4 days ago. Appreciate further evaluation such as possible bronchoscopy. Call Completed: Yes 05/23/17 09:15 Consult to Dialysis [CONS] ONCE 05/25/17 08:00 Consult to Dialysis [CONS] ONCE - Patient Status Disposition: Home, Self-Care Condition: Good - Discharge Instructions Instructions: Chronic Obstructive Pulmonary Disease (DC), Anemia (GEN) Follow Up With: Jeromy Wall MD [Primary Care Provider] - 05/29/17 2:00 pm (Web requested ) Hospital course: Mr. Guardado is a 61 year old male - Time Spent with Patient Total time spent providing and/or coordinating discharge services: - Constitutional Vitals: Temp Pulse Resp BP Pulse Ox 98.2 F 89 18 133/75 98 05/25/17 13:40 05/25/17 07:38 05/25/17 16:29 05/25/17 13:40 05/25/17 16:29 - Attending Attestation I examined this patient and my medical decision-making was reviewed with the Resident Physician on 05/25/17. I agree with the documented findings, disposition and treatment plan as described except to the extent set forth below. 61 Y/O M with ESRD on HD, Lung CA, COPD, Chronic anemia, Chronic resp failure on home O2, admitted and managed for aspiration pneumonia, and COPDE. He has no new complains, is no longer aspirating and has made significant improvement Physical exam is significant for RLL rhonchi, otherwise unremarkable, VSS Chem and CBC are at baseline He is clinically stable to be discharged home on Augmentin and Levoflox to complete 10 days. Follow up with PCP Resume other home meds Rest of deatils as in resident physician's documentation <Nando Sumner - Last Filed: 05/25/17 20:13> Date of Encounter: 05/25/17 Time of Encounter: 10:30 - Discharge Diagnosis (1) Pneumonia Priority: Primary Status: Resolved Comments: Patient initially presented to the hospital with shortness of breath. Patient was being treated previously in the hospital for pneumonia, for which she was on Levaquin. -Chest x-ray and CT scan showed several areas suggestive of pneumonia. -IV antibiotics ordered (vancomycin with pharmacy dosing, Zosyn 3.375 GM every 8 , and Levaquin 750 MG daily). -After patient coughed up several blueberries, pulmonology was consulted and bronchoscopy was performed. -Bronchoscopy revealed consolidation in the right upper lung, possibly suggestive of an aspiration pneumonia. -Patient was discharged on 3 days of Augmentin 250 mg by mouth twice a day. Qualifiers: Pneumonia type: due to unspecified organism Laterality: right Lung location: upper lobe of lung Qualified Code(s): J18.1 - Lobar pneumonia, unspecified organism (2) Acute exacerbation of chronic obstructive airways disease Priority: Secondary Status: Acute Comments: Acute COPD exacerbation secondary to sepsis due to possible right lung post- obstructive pneumonia related to malignancy/possible gram-negative pneumonia -Patient's O2 saturation on date of discharge is 99. -Patient's breathing has also improved considerably. When patient was first seen, diminished breath sounds, wheezing, and fine crackles were appreciated in all lung hirsch. -Subsequent physical examinations showed an improvement in patient's physical exam findings. (3) Aspiration into airway Priority: Secondary Status: Acute Comments: Patient coughed up several blueberries this morning. He stated that he ate the blueberries on . -Pulmonology has been consulted. -Bronchoscopy performed, showed RUL aspiration pneumonia. -Upper endoscopy was performed, showed no abnormalities in the esophagus, stomach, or duodenum. Qualifiers: Encounter type: subsequent encounter Qualified Code(s): T17.908D - Unspecified foreign body in respiratory tract, part unspecified causing other injury, subsequent encounter (4) Anemia Priority: Secondary Status: Chronic Comments: Likely secondary to end-stage renal disease/chronic. -Patient had a slight drop in his hemoglobin during admission. -GI was consulted. GI reported no overt GI bleeding, rectal exam was negative for black stool. GI stated that there was no acute indication to do an EGD. -Patient's hemoglobin on date of discharge was 9.8. Qualifiers: Anemia type: other cause Other causes of anemia: chronic disease, other Qualified Code(s): D63.8 - Anemia in other chronic diseases classified elsewhere (5) ESRD (end stage renal disease) Priority: Secondary Status: Chronic Comments: Patient receives dialysis on date of discharge. (6) Lung cancer Priority: Secondary Status: Chronic Qualifiers: Laterality: right Lung location: hilum of lung Qualified Code(s): C34.01 - Malignant neoplasm of right main bronchus (7) Type 2 diabetes mellitus Priority: Secondary Status: Chronic Qualifiers: Diabetes mellitus complication status: with circulatory complication Diabetes mellitus complication detail: with other circulatory complications Diabetes mellitus detention insulin use: without lobsterman use Qualified Code( s): E11.59 - Type 2 diabetes mellitus with other circulatory complications Date of admission: 05/18/17 14:34 Primary care physician: Jeromy Wall MD Consults: 05/18/17 14:49 Consult to Nutrition [CONS] Routine Comment: Consulting Provider: NUTRITION Reason for Dietary Consult: Diet Education 05/18/17 16:45 Consult to Dialysis [CONS] ONCE 05/21/17 07:40 Consult to Speech Therapy [CONS] Routine Comment: Evaluate, develop and implement POC Reason for Consult: coughing up food Time Notified: 07:41 Call Completed: Yes 05/21/17 09:45 Consult to Dialysis [CONS] ONCE 05/21/17 10:01 Consult to Pulmonology [CONS] Routine Consulting Provider: Pulm Crit Care & Sleep [place] Reason for Consult: H/o lung CA. Admitted for PNA, possible post- obstructive. Now coughing up blueberry from 4 days ago. Appreciate further evaluation such as possible bronchoscopy. Call Completed: Yes 05/23/17 09:15 Consult to Dialysis [CONS] ONCE 05/25/17 08:00 Consult to Dialysis [CONS] ONCE Discharging clinician: Nando Sumner Anticipated date of discharge: 05/25/17 - Patient Status Overall status at discharge: patient is progressing back to baseline - Diet and Activity Activity: increase activity as tolerated Diet: advance to your usual diet Hospital course: Mr. Guardado is a 61 year old male who presented to ED with chief complaint of shortness of breath and dyspnea of two weeks duration that he states became progressively worse. He states that he was at dialysis and became short of breath while in the waiting room. EMS stated that on the date of admission, patient was 88% on room air when they arrived. EMS placed him on 2 L of oxygen with an albuterol nebulizer and his stats came up to 100%. Patient reported that he had been previously diagnosed with pneumonia 2 weeks prior and was placed on PO levaquin. On admission, patient stated that he did not believe that antibiotics were working. He reported coughing up "brown stuff," fever and chills, but denied vomiting, weakness, dizziness, pre-syncope, syncope, headache, or abdominal pain. CXR demonstrated bilateral interstitial lung infiltrates likely related to pulmonary edema and less likely pneumonia. Patient 's medical history includes arthritis, cancer, CHF, CAD, diabetes controlled with oral hyperglycemics, CKG requiring dialysis, GERD, HLD, HTN, FL, and PAD. Patient was former smoker reporting he smoked 1/2-2 packs per day but quit one year ago. Patient denied any history of DVTs or PEs. On admission, patient's temperature was 97.6, pulse rate 135, respiratory rate 22, blood pressure 179/92 , troponin was 0.07, lactic acid was 0.8, and patient has suspected infection related to symptoms and CXR so he met sepsis criteria. Patient was placed on continuous cardiac telemetry, supplemental O2 titration if SPO2 less than 92% as well as continuous SPO2 monitoring, timed lactic acids, CT of chest without contrast, continuation of IV antibiotics (vancomycin and pharmacy dosed, Zosyn 3.375 gm Q8, and Levaquin 750 mg Q24). Patient was due for dialysis. Nephrology was consulted to continue his dialysis. He was placed on renal diet with fluid restriction of 1.5L daily. Patient's Lasix was continued daily by mouth. He was given PO Protonix 40 mg for GERD. During patient's stay in the hospital, she was repeatedly observed to be tachycardic. Patient normally takes Coreg. Coreg was resumed, and over the next several days, patient's heart rate began to decrease. On the date of discharge, patient's pulse was 89. Patient's hemoglobin while in the hospital was also observed to be low. This is most likely secondary to his chronic renal disease. There was an initial concern about the possibility of GI bleed because patient had a dark colored bowel movement. GI was consulted, and saw the patient. GI recommended to closely monitor patient's hemoglobin and hematocrit. They did not recommend the use of endoscopy, because there was no evidence of an acute bleed, and because of the patient's respiratory status. Patient's hemoglobin was continuously monitored throughout his stay. On admission, patient's hemoglobin was 8.5. His hemoglobin dropped to a low of 7.1. 2 units of blood were ordered and patient was transfused. After transfusion, patient's hemoglobin daja to 10.0 at time of discharge, patient's hemoglobin is 9.8. On 05/21/17, patient was examined at bedside. Several whole blueberries were observed in a cup at bedside. Patient stated that that morning she had coughed up several full blueberries that he had eaten the previous . At the time, patient denied having any issues swallowing or abdominal pain, distention , GI distress, or tenderness to palpation in his abdomen. There was a concern of possible aspiration. Pulmonology was consulted, and bronchoscopy was performed. Bronchoscopy did not show any blueberries and patient's lungs, but did show a consolidation in the right upper lung suggestive of pneumonia. Patient was continued on antibiotics. Endoscopy was also performed, both which showed no signs of esophageal, stomach, or duodenal abnormalities. During his stay in the hospital, patient's condition gradually improved. In the final days leading up to his discharge, patient's breathing had improved significantly. Patient will be discharged on 3 days worth of Augmentin 250 mg by mouth for the treatment of aspiration pneumonia. - Time Spent with Patient Total time spent providing and/or coordinating discharge services: Greater than 30 minutes (41 minutes) - Constitutional Vitals: Temp Pulse Resp BP Pulse Ox 98.1 F 89 18 133/76 99 05/25/17 07:38 05/25/17 07:38 05/25/17 08:14 05/25/17 07:38 05/25/17 08:14 - VTE Documentation of Mechanical Device: Intermittent pneumatic compression device
--- NOTE | 2017-05-25 11:47 | Nephrology Progress Note ---
Date of Encounter: 05/25/17 Time of Encounter: 11:46 - Assessment and Plan (1) End stage chronic kidney disease Current Visit: Yes Status: Chronic continue MWF dialysis will be discharged after dialysis today monitor strict I/O stable (2) Acute exacerbation of chronic obstructive airways disease Current Visit: Yes Status: Acute ON abx. steroids, bronchodialators management as per primary (3) Anemia Current Visit: Yes Status: Chronic Status post ERCP transfusion EGD showed no signs of bleeding Hemoglobin stable Qualifiers: Anemia type: other cause Other causes of anemia: chronic disease, other Qualified Code(s): D63.8 - Anemia in other chronic diseases classified elsewhere Subjective Principal diagnosis: Acute on chornic COPD Interval history: States exertional sob improved. Denies epigastric pain, N/V/D. Underwent dialysis yesterday and 2PBRC replaced. hgb stable. Objective - Vital Signs Vital signs: Vital Signs Temp Pulse Resp BP Pulse Ox 05/25/17 08:14 18 99 05/25/17 07:38 98.1 F 89 17 133/76 100 05/25/17 05:10 98 F 84 16 124/66 100 05/25/17 04:36 18 91 05/25/17 00:24 18 98 05/24/17 23:50 98.1 F 80 15 95/58 100 05/24/17 19:51 16 91 05/24/17 19:15 98.1 F 73 16 109/53 99 05/24/17 16:14 18 100 05/24/17 15:51 97.7 F 92 19 130/76 100 05/24/17 13:41 97.6 F 87 16 133/73 99 05/24/17 12:15 97.6 F 87 16 107/59 99 Intake and Output 05/24/17 05/25/17 05/25/17 23:59 07:59 15:59 Intake Total 360 / 360 Output Total 725 / 725 550 / 550 Balance -365 / -365 -550 / -550 Intake: Oral 360 / 360 Output: Urine 725 / 725 550 / 550 Other: Meal Dinner Percent of Meal Consumed 100% # Voids 2 Weight 64 kg Blood Glucose* 291 172 Patient Weight 05/25/17 23:59 Weight 64 kg - General Appearance General appearance: Present: frail EENT: Present: PERRL, mucous membranes moist Neck: Present: no JVD, supple Additional Comments: diminished and coarse b/l Cardiology: Present: regular rate, regular rhythm Gastrointestinal: Present: normoactive bowel sounds, no tenderness Integumentary: Present: no rash, warm and dry Neurologic: Present: alert and oriented x3 Musculoskeletal: Present: no deformities, no erythema, no cyanosis Psychiatric: Present: mood/affect appropriate - Lab 05/25/17 03:34 05/25/17 03:34 Most recent lab results Calcium 8.3 mg/dL (8.6-10.8) L 05/25/17 03:34 Magnesium 1.9 mg/dL (1.6-2.6) 05/19/17 00:49 - VTE Documentation of Mechanical Device: Intermittent pneumatic compression device Consult Discharge Plan - Plan Instructions: Chronic Obstructive Pulmonary Disease (DC) Referrals: Jeromy Wall MD [Primary Care Provider] - 05/29/17 2:00 pm (Web requested )
[2017-05-25] MEDS: levoFLOXacin 500 MG TABLET PO SCH ×2 (12:13→15:27)
[2017-05-25] MEDS ORDERED: *HR* Propofol 200 MG/20 ML VIAL IVP ONE (14:12)
[2017-05-25 14:26] VITALS: BP 133/75
[2017-05-27 08:14] LABS: Ethylene Glycol <5 mg/dL
== END 2017-05-25 16:42 | disposition home or self-care (01) | DRG 853 ==
LOC: EMEROO 10:52 → 2ANU 10:52 → SUATTDRO 14:34
PROVIDERS: ADMIT Internal Medicine; ATTEND Internal Medicine

== ENCOUNTER 2017-08-29 15:22 | Inpatient (IN) ==
--- NOTE | 2017-08-29 15:28 | Emergency Department Note ---
Disposition Clinical Impression: Atrial flutter Qualifiers: Atrial flutter type: typical Qualified Code(s): I48.3 - Typical atrial flutter Disposition: Admitted As Inpatient Condition: Serious Referrals: Jeromy Wall MD [Primary Care Provider] - Forms: ED Satisfaction Letter Time of Disposition: 17:06 Arrhythmia/Palpitations HPI - General Chief Complaint: ED Arrhythmia/Palpitations Stated Complaint: Tachycardia Time Seen by Provider: 08/29/17 15:26 Source: patient, EMS Mode of arrival: EMS Limitations: no limitations Nursing Notes Reviewed: Yes Vital Signs Reviewed: Yes - History of Present Illness HPI Narrative: 61-year-old male with a history renal failure was at dialysis and was noted to have a heart rate in the 140s 150s his entire time on dialysis. Squad indicates that the has atrial fib/flutter which is new for him. 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 Denies: chest pain - Related Data Home Medications Medication Instructions Recorded Confirmed Albuterol Sulfate [Albuterol 2 puff IH Q4HR 07/29/15 07/12/17 Inhaler] Budesonide/Formoterol 160/4.5 2 puff IH BIDR 07/29/15 07/12/17 [Symbicort] Gabapentin [Neurontin] 100 mg PO TID 07/29/15 07/12/17 Glimepiride [Amaryl] 2 mg PO DAILY 07/29/15 07/12/17 Furosemide [Lasix] 40 mg PO DAILY 08/31/16 07/12/17 Oxygen 2 l NS AD 08/31/16 07/12/17 Multivitamin [Multivitamins] 1 cap PO DAILY 11/03/16 07/12/17 Previous Rx's Medication Instructions Recorded Famotidine [Pepcid] 10 mg PO BID #60 tablet 07/03/15 Calcium Acetate [Phos-LO] 667 mg PO TIDWM #90 capsule 10/02/15 Carvedilol [Coreg] 25 mg PO BID #60 tablet 10/02/15 Albuterol Neb [Proventil Neb] 2.5 mg IH Q4HR PRN #30 vial.neb 09/03/16 Magic Mouthwash [Magic Mouthwash 10 ml PO QID PRN #240 ml 12/18/16 BLM] Ondansetron [Zofran ODT] 8 mg SL Q4HR PRN #60 tab.rapdis 02/28/17 Docusate [Colace] 100 mg PO DAILY #20 capsule 03/02/17 Polyethylene Glycol 3350 [MiraLAX 1 scoop PO DAILY #510 gm 03/02/17 Powder Bulk 17.9 Oz] Megestrol Acetate [Megace] 800 mg PO DAILY #400 mls 04/12/17 Cephalexin [Keflex] 500 mg PO TID #21 capsule 07/30/17 Oxycodone HCl [Roxicodone 30 MG 30 mg PO Q8H PRN #90 tab 08/16/17 Immed Release] Allergies Allergy/AdvReac Type Severity Reaction Status Date / Time pollen extracts Allergy Itching Verified 05/18/17 12:12 shellfish derived AdvReac Nausea Verified 05/18/17 12:12 IVP DYE Allergy Intermediate Vomiting Uncoded 01/20/17 23:57 All systems ED: reviewed and negative except as stated. Constitutional: Denies: fever, chills, weakness, weight change Eyes: Denies: eye pain, eye discharge, vision change ENT ED: Denies: ear pain, throat pain, dental pain, hearing loss, epistaxis, congestion, dysphagia Cardiovascular: Reports: palpitations. Denies: chest pain, dyspnea on exertion , edema, syncope Respiratory: Denies: cough, dyspnea, wheezes, hemoptysis, stridor Gastrointestinal: Denies: abdominal pain, nausea, vomiting, diarrhea, constipation, hematemesis, melena, hematochezia Genitourinary: Denies: urgency, dysuria, frequency, hematuria Musculoskeletal: Denies: back pain, neck pain, arthralgia, myalgia Integumentary: Denies: rash, abrasion, lesions Neurological: Denies: headache, weakness, numbness, paresthesias, confusion, abnormal gait, vertigo Psychiatric: Denies: anxiety, depression, suicidal thoughts, homicidal thoughts , auditory hallucinations, visual hallucinations Endocrine: Denies: fatigue Hematological/Lymphatic: Denies: easy bleeding, easy bruising Allergic/Immunologic: Denies: facial swelling, urticaria Past Medical History - Past Medical History Medical history: Reports: arthritis, cancer, CHF, coronary artery disease, diabetes, dialysis, GERD, hyperlipidemia, hypertension, myocardial infarction, peripheral artery disease, renal disease, other Surgical history: Reports: angioplasty/stent, carotid endarterectomy, coronary bypass (CABG), orthopedic, other, other Psychiatric history: Reports: anxiety, depression - Social History Smoking Status: Former smoker Smokeless Tobacco Status: No (does not smoke) Alcohol use: Reports: none Drug use: Reports: none Physical Exam - General Limitations: no limitations General appearance: alert, in no apparent distress - Head Head exam: atraumatic, normocephalic, normal inspection - Eye Eye exam: Present: normal appearance, PERRL, EOMI - ENT ENT exam: normal exam, normal oropharynx, mucous membranes moist - Neck Neck exam: Present: normal inspection, full ROM, trachea midline - Chest Chest inspection: Present: normal inspection, symmetric chest wall rise - Respiratory Respiratory exam: Present: normal lung sounds bilaterally - Cardiovascular Cardiovascular exam: Present: tachycardia, irregular rhythm - Abdominal Exam Abdominal exam: Present: soft, Non-Tender. Absent: tenderness, distention, guarding, rebound, rigidity - Extremities Exam Extremities exam: Present: normal inspection, full ROM. Absent: tenderness, pedal edema - Expanded Lower Extremity Exam Neurovascular/Tendon exam: Absent: motor deficit, sensory deficit, tendon deficit Gait: not tested/not observed - Back Exam Back exam: Present: normal inspection, full ROM. Absent: tenderness - Neurological Exam Neurological exam: Present: alert, oriented X3. Absent: motor sensory deficit - Psychiatric Psychiatric exam: Present: normal affect, normal mood - Skin Skin exam: Present: warm, dry, intact, normal color Course - Reevaluation(s) Reevaluation #1: Echocardiogram done 03/2017 shows an EF of 45%. Time: 15:34 - Consultations Consultation #1: Discussed with Dr. Benítez. He requested we give the patient an additional 10 mg diltiazem IV and increased the drip to 10. He also request a heparin drip. Time: 16:45 Consultation #2: Discussed with Dr. Estrada, admit Time: 17:07 Vital Signs Temperature 97.6 F 08/29/17 15:23 Pulse Rate 156 08/29/17 15:23 Respiratory Rate 18 08/29/17 15:23 Blood Pressure 140/104 08/29/17 15:23 O2 Sat by Pulse Oximetry 100 08/29/17 15:23 Temperature 97.6 F 08/29/17 15:23 Pulse Rate 155 08/29/17 16:33 Respiratory Rate 16 08/29/17 16:33 Blood Pressure 136/88 08/29/17 16:33 O2 Sat by Pulse Oximetry 98 08/29/17 16:33 Oxygen Delivery Oxygen Delivery Nasal Cannula Arrhythmia/Palpitations - Lab Data Lab results reviewed: Yes I reviewed the patient's lab results. Result diagrams: 08/29/17 15:44 08/29/17 15:44 Lab Results 08/29/17 08/29/17 08/29/17 Range/Units 15:44 15:44 15:44 WBC 8.1 (4.3-11.1) K/mcL RBC 4.04 L (4.19-5.50) M/mcL Hgb 11.1 L (12.9-16.9) g/dL Hct 37.0 L (37.5-50.1) % MCV 91.6 (83.0-100.0) fL MCH 27.5 L (28.0-33.3) pg MCHC 30.0 L (31.6-35.5) g/dL RDW 17.2 H (11.5-14.5) % Plt Count 264 (140-400) K/mcL MPV 10.0 (9.4-12.4) fL Immature Gran % 0.5 (0-4) % Seg Neutrophils % 82.3 % Lymphocytes % 8.7 % Monocytes % 8.0 % Eosinophils % 0.1 % Basophils % 0.4 % Neutrophils # 6.7 (1.6-8.9) K/mcL Lymphocytes # 0.7 (0.6-4.6) K/mcL Monocytes # 0.7 (0.0-1.3) K/mcL Eosinophils # 0.0 (0.0-0.6) K/mcL Basophils # 0.0 (0.0-0.2) K/mcL Platelet Estimate Normal (Normal) PT 13.3 H (9.4-12.1) Seconds INR 1.2 APTT 30.1 (26.0-36.0) Seconds Sodium 137 (136-145) mEq/L Potassium 3.8 (3.5-4.5) mEq/L Chloride 99 (98-109) mEq/L Carbon Dioxide 27 (19-29) mEq/L BUN 19 (8-26) mg/dL Creatinine 1.70 H (0.72-1.25) mg/dL Est GFR ( Amer) 50 L (> 60) Est GFR (Non-Af Amer) 41 L (> 60) BUN/Creatinine Ratio 11 (6-26) Glucose 151 H (70-99) mg/dL Calculated Osmolality 289 (280-300) Calcium 8.3 L (8.6-10.8) mg/dL Magnesium 1.6 (1.6-2.6) mg/dL Troponin I (0-0.03) ng/mL TSH 1.478 (0.350-4.840) mcIU/mL 08/29/17 Range/Units 15:44 WBC (4.3-11.1) K/mcL RBC (4.19-5.50) M/mcL Hgb (12.9-16.9) g/dL Hct (37.5-50.1) % MCV (83.0-100.0) fL MCH (28.0-33.3) pg MCHC (31.6-35.5) g/dL RDW (11.5-14.5) % Plt Count (140-400) K/mcL MPV (9.4-12.4) fL Immature Gran % (0-4) % Seg Neutrophils % % Lymphocytes % % Monocytes % % Eosinophils % % Basophils % % Neutrophils # (1.6-8.9) K/mcL Lymphocytes # (0.6-4.6) K/mcL Monocytes # (0.0-1.3) K/mcL Eosinophils # (0.0-0.6) K/mcL Basophils # (0.0-0.2) K/mcL Platelet Estimate (Normal) PT (9.4-12.1) Seconds INR APTT (26.0-36.0) Seconds Sodium (136-145) mEq/L Potassium (3.5-4.5) mEq/L Chloride (98-109) mEq/L Carbon Dioxide (19-29) mEq/L BUN (8-26) mg/dL Creatinine (0.72-1.25) mg/dL Est GFR ( Amer) (> 60) Est GFR (Non-Af Amer) (> 60) BUN/Creatinine Ratio (6-26) Glucose (70-99) mg/dL Calculated Osmolality (280-300) Calcium (8.6-10.8) mg/dL Magnesium (1.6-2.6) mg/dL Troponin I 0.12 H* (0-0.03) ng/mL TSH (0.350-4.840) mcIU/mL - Radiology Data Radiology results reviewed: Yes I reviewed the patient's radiology results. - EKG Data EKG attestation: Yes I reviewed and interpreted this EKG. Rate: tachycardia Rhythm: A. flutter Interpretation: other (New-onset atrial flutter) Critical Care Time Critical Care Time: Yes Total Critical Care Time: 75 Attestation: The high probability of a clinically significant, sudden or life threatening deterioration of the [cardiovascular] system(s) required my full and direct attention, intervention and personal management. The aggregate critical care time was [75] minutes. This time is in addition to time spent performing reported procedures but includes the following: [x] Data Review and interpretation [x] Patient assessment and monitoring of vital signs [x] Documentation [x] Medication orders and management
[2017-08-29 15:50] LABS: Basophils % 0.4 %; Eosinophils % 0.1 %; Red Cell Distribution Width 17.2 % (11.5-14.5)
[2017-08-29 15:52] LABS: Hemoglobin 11.1 g/dL (12.9-16.9); Immature Granulocytes % 0.5 % (0-4); Lymphocytes # 0.7 K/mcL (0.6-4.6); Lymphocytes % 8.7 %; Mean Corpuscular Hemoglobin 27.5 pg (28.0-33.3); Mean Corpuscular Volume 91.6 fL (83.0-100.0); Monocytes # 0.7 K/mcL (0.0-1.3); Neutrophils # 6.7 K/mcL (1.6-8.9); Platelet Count 264 K/mcL (140-400); Red Blood Count 4.04 M/mcL (4.19-5.50); Segmented Neutrophils % 82.3 %
[2017-08-29 15:56] LABS: INR 1.2; Prothrombin Time 13.3 Seconds (9.4-12.1)
[2017-08-29 15:59] LABS: Activated Partial Thrombo Time 30.1 Seconds (26.0-36.0)
[2017-08-29 16:02] LABS: Calcium 8.3 mg/dL (8.6-10.8); Potassium 3.8 mEq/L (3.5-4.5)
[2017-08-29 16:08] LABS: Platelet Estimate Normal (Normal)
[2017-08-29 16:29] LABS: Thyroid Stimulating Hormone 1.478 mcIU/mL (0.350-4.840)
[2017-08-29] MEDS ORDERED: *HR* Heparin 5,000 UNIT/ML VIAL IVP ONE (16:45)
[2017-08-29] MEDS ORDERED: *HR* Heparin 5,000 UNIT/ML VIAL IVP PRN (16:45)
[2017-08-29 17:01] LABS: Magnesium 1.6 mg/dL (1.6-2.6)
[2017-08-29] MEDS: Heparin 25,000 UNIT/500 ML D5W 25,000 UNIT/500 ML MLS IVC SCH (17:34)
[2017-08-29] MEDS ORDERED: Ipratropium/Albuterol Neb 3 ML IH PRN (21:38)
[2017-08-29] MEDS ORDERED: *HR* Morphine 2 MG/ML SYRINGE IVP PRN (21:39)
[2017-08-29] MEDS ORDERED: Naloxone 0.4 MG/ML INJ IVP PRN (21:39)
[2017-08-29] MEDS ORDERED: NON-FORMULARY MEDICATION 1 EACH EACH (Oxygen [Oxygen] 2 L) NS SCH (21:45)
--- NOTE | 2017-08-29 21:47 | Internal Med History&Physical ---
Date of Encounter: 08/29/17 Time of Encounter: 21:45 Assessment and Plan (1) Atrial flutter Current visit: Yes Status: Acute A. fib flutter - ED discussed case with cardiology who recommended heparin drip , Cardizem drip Check thyroid function Check Mg and K Troponemia appears chronic in the setting of ESRD, CAD. This likely represents demand. Treatment with rate control Qualifiers: Atrial flutter type: typical Qualified Code(s): I48.3 - Typical atrial flutter (2) Acute exacerbation of chronic obstructive airways disease Current visit: No Status: Acute IV steroids, duonebs, IV antibiotics (3) History of coronary artery bypass graft Current visit: No Status: Chronic Medical management for now (4) HTN (hypertension) Current visit: No Status: Chronic Continue meds Qualifiers: Hypertension type: essential hypertension Qualified Code(s): I10 - Essential (primary) hypertension (5) Diabetes mellitus, type 2 Current visit: No Status: Chronic continue home med. add ISS with steroids Qualifiers: Diabetes mellitus complication status: with unspecified complications Diabetes mellitus superintendent container terminal insulin use: without jail use Qualified Code( s): E11.8 - Type 2 diabetes mellitus with unspecified complications (6) ESRD (end stage renal disease) on dialysis Current visit: Yes Status: Acute consult neph . [facility] Internal Medicine - H&P: HPI Chief complaint: Burning sensation in chest History of present illness: Mr. Guardado is a 61 year old male with a history of CAD, CABG in 2007, COPD, end- stage renal disease on Sunday and Fridays dialysis who presents with AFib rvr and COPD flare He was at dialysis today and every Sunday was in Fridays when his heart rate was noted to be elevated above 100. He was subsequently evaluated and found to be in A. fib RVR. In terms of symptoms she reported burning sensation across her chest and but denies palpitations. On examination he is has significant wheezing and this was corroborated with his history of COPD and therefore was diagnosed with COPD exacerbation as well. Shortness of breath worse on ambulation, improve her rest. EKG personally reviewed with rate of 155, A. fib XR/XR chest 1V portable IMPRESSION: Stable infiltrate within the right upper lobe likely representing scarring. There remains prominence of the interstitial markings compatible with chronic lung disease. No evidence of acute abnormality. Past Med Surg Social Fam HX - Past Medical History Medical history: arthritis, cancer, CHF, coronary artery disease, diabetes, dialysis, GERD, hyperlipidemia, hypertension, myocardial infarction, peripheral artery disease, renal disease, other Psychiatric history: anxiety, depression - Past Surgical History Surgical History: angioplasty/stent, carotid endarterectomy, coronary bypass ( CABG), orthopedic, other, other - Social History Smoking Status: Former smoker Smokeless Tobacco Status: No (does not smoke) Alcohol use: none Drug use: none - Family History Brother Adopted: No Family Member Ethnicity: Non- Living Status: Hx Family Cardiac Disorders: Yes Hx Family Respiratory Disorders: Yes (dad black lung) Hx Family Cancer: Yes (mother) Hx Family GI Disorders: No Hx Family Endocrine Disorder: Yes (sister) Hx Family Neuromuscular Disorders: No Hx Family Neurologic Disorders: No Hx Family HEENT Disorders: No Hx Family Autoimmune Disorders: No Sister Family Member Ethnicity: Non- Living Status: Still Living Hx Family Cardiac Disorders: Yes (HD) Hx Family Respiratory Disorders: Yes (COPD) Hx Family Endocrine Disorder: Yes (Thyroid disease) Mother Adopted: No Family Member Ethnicity: Non- Living Status: Hx Family Cardiac Disorders: No Hx Family Respiratory Disorders: No Hx Family Cancer: Yes Hx Family GI Disorders: No Hx Family Endocrine Disorder: No Hx Family Neuromuscular Disorders: No Hx Family Neurologic Disorders: No Hx Family HEENT Disorders: No Hx Family Autoimmune Disorders: No Father Adopted: No Family Member Ethnicity: Non- Living Status: Hx Family Cardiac Disorders: No Hx Family Respiratory Disorders: Yes Hx Family Cancer: No Hx Family GI Disorders: No Hx Family Endocrine Disorder: No Hx Family Neuromuscular Disorders: No Hx Family Neurologic Disorders: No Hx Family HEENT Disorders: No Hx Family Autoimmune Disorders: No Internal Medicine - H&P: Meds Famotidine [Pepcid] 10 mg PO BID #60 tablet 07/03/15 [Rx] Albuterol Sulfate [Albuterol Inhaler] 2 puff IH Q4HR 07/29/15 [History] Budesonide/Formoterol 160/4.5 [Symbicort] 2 puff IH BIDR 07/29/15 [History] Gabapentin [Neurontin] 100 mg PO TID 07/29/15 [History] Glimepiride [Amaryl] 2 mg PO DAILY 07/29/15 [History] Calcium Acetate [Phos-LO] 667 mg PO TIDWM #90 capsule 10/02/15 [Rx] Carvedilol [Coreg] 25 mg PO BID #60 tablet 10/02/15 [Rx] Furosemide [Lasix] 40 mg PO DAILY 08/31/16 [History] Oxygen 2 l NS AD 08/31/16 [History] Albuterol Neb [Proventil Neb] 2.5 mg IH Q4HR PRN #30 vial.neb 09/03/16 [Rx] Multivitamin [Multivitamins] 1 cap PO DAILY 11/03/16 [History] Magic Mouthwash [Magic Mouthwash BLM] 10 ml PO QID PRN #240 ml 12/18/16 [Rx] Ondansetron [Zofran ODT] 8 mg SL Q4HR PRN #60 tab.rapdis 02/28/17 [Rx] Docusate [Colace] 100 mg PO DAILY #20 capsule 03/02/17 [Rx] Megestrol Acetate [Megace] 800 mg PO DAILY #400 mls 04/12/17 [Rx] Oxycodone HCl [Roxicodone 30 MG Immed Release] 30 mg PO Q8H PRN #90 tab [Rx] 3 Allergy/AdvReac Type Severity Reaction Status Date / Time pollen extracts Allergy Itching Verified 05/18/17 12:12 shellfish derived AdvReac Nausea Verified 05/18/17 12:12 IVP DYE Allergy Intermediate Vomiting Uncoded 01/20/17 23:57 All Systems PM: A 10-system review of systems was performed and is negative for pertinent findings except as documented above in the HPI. Review of systems: ROS 14 point review of systems reviewed as best as possible given presentation. Pertinent positive or negative as per HPI or otherwise reviewed as negative - Constitutional Vitals: Temp Pulse Resp BP Pulse Ox 97.6 F 134 18 109/59 99 08/29/17 19:38 08/29/17 19:38 08/29/17 19:38 08/29/17 19:38 08/29/17 19:38 Exam: General - AAO x 3 Psych - Appropriate affect/speech. No agitation Eyes - BETTY. Eye lids intact. No scleral icterus Heart - irregularly, irregular . S1 and S2 present. No added HS/murmurs appreciated. No elevated JVD appreciated. Lung - Adequate air entry b/l, diffuse wheezes appreciated, no crackles GI - Soft, non-tender. No hepatosplenomegaly/ascites. BS+ - No CVA/suprapubic tenderness or palpable bladder distension Skin - Intact. No rash/petechiae/ecchymosis. Warm extremities Internal Med - H&P Results - Labs CBC & Chem 7: 08/29/17 15:44 08/29/17 15:44
[2017-08-29] MEDS ORDERED: D5% in Water 1,000 ML IVC PRN (21:50)
[2017-08-29] MEDS ORDERED: Dextrose Gel 15 GM PO PRN ×2 (21:50)
[2017-08-29] MEDS ORDERED: *HR* Dextrose 50 % in Water (Syg) 50 ML SYRINGE IVP PRN (21:50)
[2017-08-29] MEDS: Ipratropium/Albuterol Neb 3 ML IH SCH (22:42)
[2017-08-29] MEDS: Budesonide/Formoterol 160/4.5 MDI IH SCH (22:42)
[2017-08-29] MEDS: *HR* OxyCODONE Immed Rel 15 MG TABLET PO PRN (23:05)
[2017-08-29] MEDS: MethylPREDNISolone 40 MG/ML VIAL IVP SCH (23:06)
[2017-08-29] MEDS: Azithromycin 250 MG in D5% in Water 250 ML IVPB SCH (23:37)
[2017-08-30 00:54] LABS: Magnesium 1.4 mg/dL (1.6-2.6); Potassium 3.6 mEq/L (3.5-4.5)
[2017-08-30 01:08] LABS: Basophils % 0.5 %; Eosinophils # 0.1 K/mcL (0.0-0.6); Eosinophils % 1.6 %; Hematocrit 31.9 % (37.5-50.1); Immature Granulocytes % 0.3 % (0-4); Lymphocytes # 0.9 K/mcL (0.6-4.6); Lymphocytes % 14.1 %; Mean Corpuscular HGB Conc 29.5 g/dL (31.6-35.5); Mean Corpuscular Hemoglobin 27.4 pg (28.0-33.3); Mean Platelet Volume 10.4 fL (9.4-12.4); Monocytes # 0.4 K/mcL (0.0-1.3); Monocytes % 5.9 %; Neutrophils # 4.9 K/mcL (1.6-8.9); Platelet Count 230 K/mcL (140-400); Red Blood Count 3.43 M/mcL (4.19-5.50); Red Cell Distribution Width 17.5 % (11.5-14.5); Segmented Neutrophils % 77.6 %
[2017-08-30 01:09] LABS: Hemoglobin 9.4 g/dL (12.9-16.9)
[2017-08-30 01:19] LABS: Thyroid Stimulating Hormone 1.218 mcIU/mL (0.350-4.840)
[2017-08-30] MEDS: *HR* Heparin 5,000 UNIT/ML VIAL IVP PRN ×2 (02:40→11:00)
[2017-08-30] MEDS: Ipratropium/Albuterol Neb 3 ML IH SCH ×4 (04:02→23:02)
[2017-08-30] MEDS: MethylPREDNISolone 40 MG/ML VIAL IVP SCH ×4 (05:52→22:33)
[2017-08-30] MEDS ORDERED: Magnesium Sulfate 2 GM in D5% in Water 100 ML IVPB ONE (07:11)
--- NOTE | 2017-08-30 07:12 | Internal Med Progress Note ---
<Gerber Louis - Last Filed: 08/30/17 14:36> Date of Encounter: 08/30/17 Time of Encounter: 07:12 - Assessment and plan (1) Atrial flutter Current Visit: Yes Status: Acute Assessment and plan: A. fib flutter - ED physician discussed case with cardiology who recommended starting Cardizem drip and Heparin drip TSH 1.218, free T4 1.04 CHADS-VASc Score 4, patient reports stopping anticoagulation due to chemo induced hemoptysis Patient will need anticoagulation due to increased risk for CVA. Recommends bridging to Coumadin therapy. He would not be an ideal candidate for a novel agent due to end-stage renal disease and valvular disease. Cardiology consulted and signed off, recommended titrating off Cardizem drip, then transition to Cardizem 120mg PO daily. Follow-up with cardiology/Dr. Esteban as outpatient Qualifiers: Atrial flutter type: typical Qualified Code(s): I48.3 - Typical atrial flutter (2) Hypomagnesemia Current Visit: No Status: Acute Assessment and plan: Mg 1.4 Supplement Mag Continue to monitor (3) Elevated troponin Current Visit: Yes Status: Chronic Assessment and plan: Serial troponin 0.12 --> 0.26 Troponemia appears chronic in the setting of A-fib RVR, ESRD, CAD. This likely represents demand ischemia. Treatment with rate control Discontinue Heparin drip once serial troponins are downtrending Cardiology signed off (4) ESRD (end stage renal disease) on dialysis Current Visit: Yes Status: Acute Assessment and plan: Known ESRD, s/p left nephrectomy On HD MWF, resume HD tomorrow Avoid nephrotoxins Nephrology following. (5) Acute and chronic respiratory failure ([id number]) Current Visit: Yes Status: Acute Assessment and plan: Patient wears 2.5 L home O2 at baseline Desaturation on RA Qualifiers: Respiratory failure complication: hypoxia Qualified Code(s): J96.21 - Acute and chronic respiratory failure with hypoxia (6) Acute exacerbation of chronic obstructive airways disease Current Visit: Yes Status: Acute Assessment and plan: IV steroids, duonebs, IV antibiotics (7) History of lung cancer Current Visit: No Status: Chronic Assessment and plan: History of squamous cell carcinomas, Follows with [facility]. Patient reports has finished chemo and radiation. He underwent last chemoradiation April 2017 Bronchoscopy 05/21/17 revealed extensive mucoid secretions throughout the tracheobronchial tree worse in the right upper lobe. There were no other obstructing lesions Continue to monitor (8) Diabetes mellitus, type 2 Current Visit: No Status: Chronic Assessment and plan: HGB a1c 4.8 on 05/19/17 Continue accuchecks and SSI Qualifiers: Diabetes mellitus complication status: with unspecified complications Diabetes mellitus middle or intermediate school principal insulin use: without care home use Qualified Code( s): E11.8 - Type 2 diabetes mellitus with unspecified complications (9) CAD (coronary artery disease) Current Visit: No Status: Chronic Assessment and plan: Continue current management per cardiology recommendations Qualifiers: Coronary Disease-Associated Artery/Lesion type: bypass graft [place] vs. transplanted heart: [place] heart Associated angina: without angina Qualified Code(s): I25.810 - Atherosclerosis of coronary artery bypass graft(s) without angina pectoris (10) HTN (hypertension) Current Visit: No Status: Chronic Assessment and plan: Coreg Qualifiers: Hypertension type: essential hypertension Qualified Code(s): I10 - Essential (primary) hypertension (11) HLD (hyperlipidemia) Current Visit: No Status: Chronic Assessment and plan: Continue statin Qualifiers: Hyperlipidemia type: mixed hyperlipidemia Qualified Code(s): E78.2 - Mixed hyperlipidemia (12) GERD (gastroesophageal reflux disease) Current Visit: No Status: Chronic Assessment and plan: Continue to monitor Qualifiers: Esophagitis presence: without esophagitis Qualified Code(s): K21.9 - Gastro -esophageal reflux disease without esophagitis (13) DVT prophylaxis Current Visit: No Status: Acute Assessment and plan: Heparin ggt, bridge to Coumadin - Subjective Interval history: Patient sen and examined. Patient reports palpitations and is currently on Cardizem and Heparin drip. Patient denies fever, chills, CP, SOB, abd pain, N/V/ D, hemoptysis, melena, bleeding, or leg edema. His SpO2 is 96% today at his baseline 2.5L O2 requirement. - Constitutional Vitals: Temp Pulse Resp BP Pulse Ox 97.9 F 104 18 102/71 95 08/30/17 05:47 08/30/17 05:47 08/30/17 05:47 08/30/17 05:47 08/30/17 05:47 General appearance: Present: cooperative, A&O X 3, pleasant, no acute distress, answers questions appropriately - Head Head exam: Present: atraumatic, normal inspection, normocephalic - Eye Eye exam: Present: EOMI, PERRL - ENT ENT exam: Present: mucous membranes moist, normal oropharynx - Neck Neck exam general surgery: Present: normal inspection, supple, trachea midline. Absent: tenderness - Respiratory Respiratory exam: Present: decreased breath sounds, wheezes (expiratory). Absent: accessory muscle use, respiratory distress Additional comments: on O2 via NC - Cardiovascular Cardiovascular exam: Present: irregular rhythm, +S1, +S2, tachycardia - GI/Abdominal GI/Abdominal exam: Present: normal bowel sounds, soft. Absent: distended, guarding, rebound, tenderness - Extremities Exam Extremities exam: Present: normal inspection, warm, radial pulses palpable and symmetrical. Absent: pedal edema - Back Exam Back exam: Present: normal inspection. Absent: paraspinal tenderness, tenderness - Neurological Exam Neurological exam: Present: alert, oriented X3, no focal deficits. Absent: altered, speech deficit - Psychiatric Psychiatric exam: Present: normal affect, normal mood - Skin Skin exam: Present: dry, normal color, warm Internal Medicine: Result - Labs CBC & Chem 7: 08/30/17 00:25 08/30/17 00:25 Labs: Short CBC 08/30/17 Range/Units 00:25 WBC 6.3 (4.3-11.1) K/mcL Hgb 9.4 L D (12.9-16.9) g/dL Hct 31.9 L (37.5-50.1) % Plt Count 230 (140-400) K/mcL Neutrophils # 4.9 (1.6-8.9) K/mcL BMP 08/30/17 00:25 Sodium 136 Potassium 3.6 Chloride 100 Carbon Dioxide 24 BUN 22 Creatinine 2.28 H Glucose 308 H Calcium 8.0 L - ABG Interpretation ABG results: PT/INR, D-dimer PT 13.3 Seconds (9.4-12.1) H 08/29/17 15:44 - Pulse Oximetry Interpretation Digit-Finger Pulse Oximetry Readin (2.5L O2 via NC) Actions taken: none - EKG Interpretation EKG Interpreted by Myself: Yes Rate: tachycardia (A-fib RVR, LVH, ST deviation and moderate T-wave abnormality) - Prior EKG Data Prior EKG available for review: yes When compared to previous EKG: there is no significant change Consult Discharge Plan - Plan Referrals: Jeromy Wall MD [Primary Care Provider] - 09/07/17 2:00 pm <Nehemiah Doyle - Last Filed: 08/30/17 18:21> Date of Encounter: 08/30/17 - Assessment and plan (1) Atrial fibrillation Current Visit: Yes Status: Acute Qualifiers: Atrial fibrillation type: persistent Qualified Code(s): I48.1 - Persistent atrial fibrillation (2) Anemia in CKD (chronic kidney disease) Current Visit: No Status: Chronic Qualifiers: Chronic kidney disease stage: on chronic dialysis Qualified Code(s): N18.6 - End stage renal disease; D63.1 - Anemia in chronic kidney disease; D63.1 - Anemia in chronic kidney disease; Z99.2 - Dependence on renal dialysis; Z99.2 - Dependence on renal dialysis; Z99.2 - Dependence on renal dialysis; Z99.2 - Dependence on renal dialysis (3) CAD (coronary artery disease) Current Visit: No Status: Chronic Qualifiers: Coronary Disease-Associated Artery/Lesion type: bypass graft [place] vs. transplanted heart: [place] heart Associated angina: without angina Qualified Code(s): I25.810 - Atherosclerosis of coronary artery bypass graft(s) without angina pectoris (4) CHF (congestive heart failure) Current Visit: No Status: Chronic Qualifiers: Congestive heart failure type: systolic Congestive heart failure chronicity : chronic Qualified Code(s): I50.22 - Chronic systolic (congestive) heart failure (5) COPD (chronic obstructive pulmonary disease) Current Visit: No Status: Chronic Qualifiers: COPD type: unspecified COPD Qualified Code(s): J44.9 - Chronic obstructive pulmonary disease, unspecified (6) Diabetes mellitus Current Visit: No Status: Chronic Qualifiers: Diabetes mellitus type: type 2 Diabetes mellitus complication status: with kidney complications Diabetes mellitus complication detail: with chronic kidney disease Diabetes mellitus care home insulin use: without middle or intermediate school principal use Chronic kidney disease stage: on chronic dialysis Qualified Code(s): E11.22 - Type 2 diabetes mellitus with diabetic chronic kidney disease; N18.6 - End stage renal disease; Z99.2 - Dependence on renal dialysis (7) HTN (hypertension) Current Visit: No Status: Chronic Qualifiers: Hypertension type: essential hypertension Qualified Code(s): I10 - Essential (primary) hypertension - Constitutional Vitals: Temp Pulse Resp BP Pulse Ox 97.6 F 91 18 107/94 97 08/30/17 07:20 08/30/17 16:00 08/30/17 16:00 08/30/17 16:00 08/30/17 16:00 Internal Medicine: Result - Labs CBC & Chem 7: 08/30/17 00:25 08/30/17 00:25 Labs: Short CBC 08/30/17 Range/Units 00:25 WBC 6.3 (4.3-11.1) K/mcL Hgb 9.4 L D (12.9-16.9) g/dL Hct 31.9 L (37.5-50.1) % Plt Count 230 (140-400) K/mcL Neutrophils # 4.9 (1.6-8.9) K/mcL BMP 08/30/17 00:25 Sodium 136 Potassium 3.6 Chloride 100 Carbon Dioxide 24 BUN 22 Creatinine 2.28 H Glucose 308 H Calcium 8.0 L Cardiac Enzymes 08/30/17 08/30/17 Range/Units 08:15 14:27 Troponin I 0.26 H* 0.25 H* (0-0.03) ng/mL - ABG Interpretation ABG results: PT/INR, D-dimer PT 13.3 Seconds (9.4-12.1) H 08/29/17 15:44 - Attending Attestation I examined this patient and my medical decision-making was reviewed with the Resident Physician on 08/30/17. I agree with the documented findings, disposition and treatment plan as described except to the extent set forth below. Mr Guardado is currently admitted for atrial fib with RVR. He is ESRD. He remains moderate to high risk due to potential for worsening cardiac symptoms. Mr Guardado feels OK. No CP. No fever or chills. Heart rate controlled on card drip. Transitioning to coumadin. Exam Alert. Comfortable Heart irreg - not tachy Lungs diminished Abd soft I/P 1. Atrial fib 2. ESRD Further diagnoses and plan as above.
[2017-08-30] MEDS: Furosemide 40 MG TABLET PO SCH (08:19)
[2017-08-30] MEDS: Gabapentin 100 MG CAPSULE PO SCH ×3 (08:19→20:02)
[2017-08-30] MEDS: Calcium Acetate 667 MG CAPSULE PO SCH ×3 (08:20→20:06)
[2017-08-30] MEDS: *HR* Glimepiride 4 MG TABLET PO SCH (08:21)
[2017-08-30] MEDS: *HR* OxyCODONE Immed Rel 15 MG TABLET PO PRN (08:22)
[2017-08-30] MEDS: Famotidine 20 MG TABLET PO SCH ×2 (08:23→20:02)
--- NOTE | 2017-08-30 08:55 | Nephrology Consult Note ---
Date of Encounter: 08/30/17 Time of Encounter: 08:52 Assessment and Plan (1) ESRD (end stage renal disease) on dialysis Current Visit: Yes Status: Acute Plan for HD tomorrow Strict I/Os Renal diet Avoid nephrotoxins if possible (2) Atrial flutter Current Visit: Yes Status: Acute per cardiology team Qualifiers: Atrial flutter type: typical Qualified Code(s): I48.3 - Typical atrial flutter (3) COPD exacerbation Current Visit: No Status: Acute per primary team (4) Hypomagnesemia Current Visit: No Status: Acute Mg 1.4-being replaced now. History of Present Illness - Reason for Consult Consult date: 08/30/17 - Chief Complaint COPD excerbation, ESRD on dialysis, A-fib - History of Present Illness Mr. Guardado is a 61 year old male well known to our practice with a history of CAD , CABG in 2007, DM, COPD, end-stage renal disease on Sunday and Fridays dialysis, GERD, HTN, GA, cancer, and anxiety who presents with AFib rvr and COPD excerbation. While at dialysis yesterday his heart rate was noted to be 135 but he stated he felt fine other than some shortness of breath and cough. Patient was advised to go to ED for eval after his HD treatment. He did receive his entire dialysis treatment yesterday. Past Med Surg Social Fam HX - Past Medical History Medical history: arthritis, cancer, CHF, coronary artery disease, diabetes, dialysis, GERD, hyperlipidemia, hypertension, myocardial infarction, peripheral artery disease, renal disease, other Psychiatric history: anxiety, depression - Past Surgical History Surgical History: angioplasty/stent, carotid endarterectomy, coronary bypass ( CABG), orthopedic, other, other - Social History Smoking Status: Former smoker Smokeless Tobacco Status: No (does not smoke) Alcohol use: none Drug use: none - Family History Brother Adopted: No Family Member Ethnicity: Non- Living Status: Hx Family Cardiac Disorders: Yes Hx Family Respiratory Disorders: Yes (dad black lung) Hx Family Cancer: Yes (mother) Hx Family GI Disorders: No Hx Family Endocrine Disorder: Yes (sister) Hx Family Neuromuscular Disorders: No Hx Family Neurologic Disorders: No Hx Family HEENT Disorders: No Hx Family Autoimmune Disorders: No Sister Family Member Ethnicity: Non- Living Status: Still Living Hx Family Cardiac Disorders: Yes (HD) Hx Family Respiratory Disorders: Yes (COPD) Hx Family Endocrine Disorder: Yes (Thyroid disease) Mother Adopted: No Family Member Ethnicity: Non- Living Status: Hx Family Cardiac Disorders: No Hx Family Respiratory Disorders: No Hx Family Cancer: Yes Hx Family GI Disorders: No Hx Family Endocrine Disorder: No Hx Family Neuromuscular Disorders: No Hx Family Neurologic Disorders: No Hx Family HEENT Disorders: No Hx Family Autoimmune Disorders: No Father Adopted: No Family Member Ethnicity: Non- Living Status: Hx Family Cardiac Disorders: No Hx Family Respiratory Disorders: Yes Hx Family Cancer: No Hx Family GI Disorders: No Hx Family Endocrine Disorder: No Hx Family Neuromuscular Disorders: No Hx Family Neurologic Disorders: No Hx Family HEENT Disorders: No Hx Family Autoimmune Disorders: No Medications and Allergies Famotidine [Pepcid] 10 mg PO BID #60 tablet 07/03/15 [Rx] Albuterol Sulfate [Albuterol Inhaler] 2 puff IH Q4HR 07/29/15 [History] Budesonide/Formoterol 160/4.5 [Symbicort] 2 puff IH BIDR 07/29/15 [History] Gabapentin [Neurontin] 100 mg PO TID 07/29/15 [History] Glimepiride [Amaryl] 2 mg PO DAILY 07/29/15 [History] Calcium Acetate [Phos-LO] 667 mg PO TIDWM #90 capsule 10/02/15 [Rx] Carvedilol [Coreg] 25 mg PO BID #60 tablet 10/02/15 [Rx] Furosemide [Lasix] 40 mg PO DAILY 08/31/16 [History] Oxygen 2 l NS AD 08/31/16 [History] Albuterol Neb [Proventil Neb] 2.5 mg IH Q4HR PRN #30 vial.neb 09/03/16 [Rx] Multivitamin [Multivitamins] 1 cap PO DAILY 11/03/16 [History] Magic Mouthwash [Magic Mouthwash BLM] 10 ml PO QID PRN #240 ml 12/18/16 [Rx] Ondansetron [Zofran ODT] 8 mg SL Q4HR PRN #60 tab.rapdis 02/28/17 [Rx] Docusate [Colace] 100 mg PO DAILY #20 capsule 03/02/17 [Rx] Megestrol Acetate [Megace] 800 mg PO DAILY #400 mls 04/12/17 [Rx] Oxycodone HCl [Roxicodone 30 MG Immed Release] 30 mg PO Q8H PRN #90 tab [Rx] 3 Allergy/AdvReac Type Severity Reaction Status Date / Time pollen extracts Allergy Itching Verified 05/18/17 12:12 shellfish derived AdvReac Nausea Verified 05/18/17 12:12 IVP DYE Allergy Intermediate Vomiting Uncoded 01/20/17 23:57 Review of Systems All Systems: reviewed and no additional remarkable complaints except as stated Constitutional: no anorexia, no chills, no fever(s), no malaise Cardiovascular: dyspnea, dyspnea on exertion, no chest pain Respiratory: cough, dyspnea Gastrointestinal: no nausea, no vomiting Neurological: no behavioral changes Exam - Vital Signs Vital signs: Initial Vital Signs Temp Pulse Resp BP Pulse Ox 97.6 F 156 18 140/104 100 08/29/17 15:23 08/29/17 15:23 08/29/17 15:23 08/29/17 15:23 08/29/17 15:23 Vital Signs - Last 8 Hours Temp Pulse Resp BP Pulse Ox 08/30/17 07:20 97.6 F 105 16 121/84 96 08/30/17 05:47 97.9 F 104 18 102/71 95 08/30/17 04:02 18 94 Intake and Output 08/29/17 08/30/17 08/30/17 23:59 07:59 15:59 Intake Total 67.6 / 193.0 372 / 372 Balance 67.6 / 193.0 372 / 372 Intake: IV Fluids 67.6 / 73.0 252 / 252 Cardizem 125 MG In Dextrose 5% 67.6 / 73.0 52 / 52 100 ML @ 5 MG/HR 5 mls/hr IVC . Q24H [facility] Rx#:[id number] Heparin 25,000 UNIT/500 ML D5W 200 / 200 25,000 unit In 500 ml @ 14 UNIT /KG/HR 18.035 mls/hr IVC .Q24H [facility] Rx#:[id number] Oral 120 / 120 Other: # Voids 1 Weight 60.1 kg Blood Glucose* 183 Patient Weight 08/30/17 23:59 Weight 60.1 kg Results - Lab Results 08/30/17 00:25 08/30/17 00:25 Most recent lab results Calcium 8.0 mg/dL (8.6-10.8) L 08/30/17 00:25 Magnesium 1.4 mg/dL (1.6-2.6) L 08/30/17 00:25 Consult Discharge Plan - Plan Referrals: Jeromy Wall MD [Primary Care Provider] - 09/07/17 2:00 pm
[2017-08-30] MEDS: Insulin LISPRO 300 UNITS/3 ML VIAL SQ SCH ×4 (09:44→22:39)
--- NOTE | 2017-08-30 09:55 | Electrocardiograph Report ---
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
--- NOTE | 2017-08-30 10:46 | Cardiology Consult Note ---
Date of Encounter: 08/30/17 Time of Encounter: 09:00 Assessment and Plan (1) Atrial flutter Current Visit: Yes Status: Acute Per cardiology: -Admitted with high HR noted at dialysis. -ECG with atrial flutter with RVR, HR 155. -On cardizem drip at 10mg/hour. On beta corina. -Average HR previous 12 hours 102. -[id number] score 4 (HTN, CHF, vascular disease, DM). Currently on heparin drip for anticoagulation. Patient has known severe MR, recommend coumadin for penitentiary anticoagulation. -Of note, patient is unsure regarding starting coumadin and would like to discuss with family prior to starting coumadin. Patient educated on increased risk of CVA or embolic event without penitentiary anticoagulation. Patient states understanding. -K and TSH within normal limits. -Mg 1.4-replaced per primary service. -Recommend titrating cardizem drip in order to keep average HR less than 100. -Continue heparin drip for now. -Will continue to monitor. Qualifiers: Atrial flutter type: typical Qualified Code(s): I48.3 - Typical atrial flutter (2) Severe mitral regurgitation Current Visit: Yes Status: Chronic Per cardiology: -RUBENS 04/17/17 with tethering of anterior and posterior mitral valve leaflets. Severe MR. -Patient was referred to [facility] for evaluation for valvular intervention, however has not been seen by [facility]. Patient states has not heard from [facility] regarding appointment. -Will continue to monitor. (3) Elevated troponin Current Visit: Yes Status: Chronic Per cardiology: -Troponin 0.12, 0.26. IN the setting of atrial flutter with RVR. -Per review of records, typically has mildly elevated troponins. -Denies chest pain. -ECG with atrial flutter. -Currently on heparin drip. -Do not suspect NSTEMI, suspect demand ischemia related to atrial flutter with RVR. No cardiac rehab warranted at this time. (4) ESRD (end stage renal disease) on dialysis Current Visit: No Status: Chronic Per cardiology: -Known ESRD. -ON HD. -Nephrology following. -Management per primary and nephrology services. (5) Hypomagnesemia Current Visit: No Status: Acute Per cardiology: -Magnesium 1.4- replaced per primary service. -Management per primary service. (6) History of lung cancer Current Visit: No Status: Chronic Per cardiology: -Patient has lung cancer. -Follows with [facility]. -Patient reports has finished chemo and radiation. -Management per primary service. (7) Cardiomyopathy Current Visit: Yes Status: Chronic Per cardiology: -RUBENS 03/2017 with LVEF 45%. -Euvolemic on exam. -On beta corina and joelle inhibitor. On lasix po daily. -CHF educated reinforced with patient. Qualifiers: Cardiomyopathy type: unspecified Qualified Code(s): I42.9 - Cardiomyopathy , unspecified (8) CAD (coronary artery disease) Current Visit: No Status: Chronic Per cardiology: -Known CAD s/p CABG 2008. -[facility] 2014 with 70% proximal LAD stenosis. 100% mid LAD. The lesion had collateraks which feed from left to right and right to left. 100% proximal circumflex. Distribution supplied by collaterals from FLORES mid LAD and RCA. 100 % proximal RCA. The lesions has mature collaterals which feed from right to right and right to left feeding the circumflex. FLORES to LAD patent and provides collaterals to OM1. SVG to PDA occluded. SVG to OM 1 occluded. -On beta corina. -Will restart patient's statin and asa 81mg. Qualifiers: Coronary Disease-Associated Artery/Lesion type: bypass graft [place] vs. transplanted heart: [place] heart Associated angina: without angina Qualified Code(s): I25.810 - Atherosclerosis of coronary artery bypass graft(s) without angina pectoris Discussion w patient/family: The assessment and plan as outlined above was discussed with the patient and/or family members who expressed understanding and agreement. All questions were answered. Thank you for involving us in the care of your patient. Please call with any questions. Discussed and reviewed with . History of Present Illness Consult date: 08/29/17 Requesting physician: Sonu Addison Consult reason: atrial flutter Chief complaint: high HR History of present illness: Mr. Guardado is a 61 year old male with a relevant past medical history of DM, HTN , hyperlipidemia, ESRD on HD, CAD s/p CABG 2008, depression, anxiety, carotid stenosis s/p CEA 2001, PAD s/p intervention, tobacco abuse, severe MR, left nephrectomy. Patient was sent to [facility] from dialysis due to high heart rates. Patient denies palpitations or fluttering. Patient states he felt "different" and "just didn't feel right." Patient stated he was more short of breath and felt more tired than usual starting yesterday morning. Patient denies chest pain. Past Med Surg Social Fam HX - Past Medical History Attestation: Yes The following information was validated with the patient. Source: patient, old records reviewed, obtained from family Medical history: arthritis, cancer, CHF, coronary artery disease, diabetes, dialysis, GERD, hyperlipidemia, hypertension, myocardial infarction, peripheral artery disease, renal disease, other Psychiatric history: anxiety, depression - Past Surgical History Surgical History: angioplasty/stent, carotid endarterectomy, coronary bypass ( CABG), orthopedic, other, other - Social History Smoking Status: Former smoker Smokeless Tobacco Status: No (does not smoke) Alcohol use: none Drug use: none - Family History Brother Adopted: No Family Member Ethnicity: Non- Living Status: Hx Family Cardiac Disorders: Yes Hx Family Respiratory Disorders: Yes (dad black lung) Hx Family Cancer: Yes (mother) Hx Family GI Disorders: No Hx Family Endocrine Disorder: Yes (sister) Hx Family Neuromuscular Disorders: No Hx Family Neurologic Disorders: No Hx Family HEENT Disorders: No Hx Family Autoimmune Disorders: No Sister Family Member Ethnicity: Non- Living Status: Still Living Hx Family Cardiac Disorders: Yes (HD) Hx Family Respiratory Disorders: Yes (COPD) Hx Family Endocrine Disorder: Yes (Thyroid disease) Mother Adopted: No Family Member Ethnicity: Non- Living Status: Hx Family Cardiac Disorders: No Hx Family Respiratory Disorders: No Hx Family Cancer: Yes Hx Family GI Disorders: No Hx Family Endocrine Disorder: No Hx Family Neuromuscular Disorders: No Hx Family Neurologic Disorders: No Hx Family HEENT Disorders: No Hx Family Autoimmune Disorders: No Father Adopted: No Family Member Ethnicity: Non- Living Status: Hx Family Cardiac Disorders: No Hx Family Respiratory Disorders: Yes Hx Family Cancer: No Hx Family GI Disorders: No Hx Family Endocrine Disorder: No Hx Family Neuromuscular Disorders: No Hx Family Neurologic Disorders: No Hx Family HEENT Disorders: No Hx Family Autoimmune Disorders: No Medications and Allergies Famotidine [Pepcid] 10 mg PO BID #60 tablet 07/03/15 [Rx] Albuterol Sulfate [Albuterol Inhaler] 2 puff IH Q4HR 07/29/15 [History] Budesonide/Formoterol 160/4.5 [Symbicort] 2 puff IH BIDR 07/29/15 [History] Gabapentin [Neurontin] 100 mg PO TID 07/29/15 [History] Glimepiride [Amaryl] 2 mg PO DAILY 07/29/15 [History] Calcium Acetate [Phos-LO] 667 mg PO TIDWM #90 capsule 10/02/15 [Rx] Carvedilol [Coreg] 25 mg PO BID #60 tablet 10/02/15 [Rx] Furosemide [Lasix] 40 mg PO DAILY 08/31/16 [History] Oxygen 2 l NS AD 08/31/16 [History] Albuterol Neb [Proventil Neb] 2.5 mg IH Q4HR PRN #30 vial.neb 09/03/16 [Rx] Multivitamin [Multivitamins] 1 cap PO DAILY 11/03/16 [History] Magic Mouthwash [Magic Mouthwash BLM] 10 ml PO QID PRN #240 ml 12/18/16 [Rx] Ondansetron [Zofran ODT] 8 mg SL Q4HR PRN #60 tab.rapdis 02/28/17 [Rx] Docusate [Colace] 100 mg PO DAILY #20 capsule 03/02/17 [Rx] Megestrol Acetate [Megace] 800 mg PO DAILY #400 mls 04/12/17 [Rx] Oxycodone HCl [Roxicodone 30 MG Immed Release] 30 mg PO Q8H PRN #90 tab [Rx] 3 Allergy/AdvReac Type Severity Reaction Status Date / Time pollen extracts Allergy Itching Verified 05/18/17 12:12 shellfish derived AdvReac Nausea Verified 05/18/17 12:12 IVP DYE Allergy Intermediate Vomiting Uncoded 01/20/17 23:57 All Systems Review: A 10-system review of systems was performed and is negative for pertinent findings except as documented above in the HPI. - Constitutional Constitutional: fatigue - Cardiovascular Cardiovascular: as per HPI, dyspnea on exertion, rapid heart rate Physical Examination Vital Signs, Last 4 Hours Temp Pulse Resp BP Pulse Ox 08/30/17 07:20 97.6 F 105 16 121/84 96 General: Conversant, No Apparent Distress HEENT: Atraumatic, Normocephaly, Mucus Membranes Moist Neck: No JVD, Normal carotid pulses Cardiac: Other (Irregularly irregular. Systolic murmur noted. ) Lungs: Normal Breath Sounds, No Wheeze, Rales, Rhonchi Neuro: Alert and responsive, No focal deficits noted Abdomen: Soft, Non-Tender Skin: No rashes noted on visualized skin Musculoskeletal: No Chest Wall Tenderness, Other (Right arm fistula noted. ) Extremities: No Clubbing, No Cyanosis, No Edema, Normal Pulses Results 08/30/17 00:25 08/30/17 00:25 Lab Results Impressions Chest X-Ray 08/29/17 15:26 IMPRESSION: Stable infiltrate within the right upper lobe likely representing scarring. There remains prominence of the interstitial markings compatible with chronic lung disease. No evidence of acute abnormality. D/ / 08/29/2017 15:59:36 Evangelist Payne MD / [email or web address] Interpreting Provider: Evangelist Payne MD Active Medications Albuterol/Ipratropium (Duoneb) 3 ml IH [id number] PRN PRN Reason: Shortness Of Breath/Wheezing Stop: 02/28/18 21:39 Albuterol/Ipratropium (Duoneb) 3 ml IH [id number] LIDA Stop: 02/28/18 22:01 Last Admin: 08/30/17 04:02 Dose: 3 ml Budesonide/Formoterol Fumarate (Symbicort) 2 puff IH BIDR LIDA PRN Reason: Protocol Stop: 02/28/18 22:01 Last Admin: 08/29/17 22:42 Dose: 2 puff Calcium Acetate (Phos-Lo) 667 mg PO TIDWM LIDA Stop: 03/01/18 08:01 Last Admin: 08/30/17 08:20 Dose: 667 mg Carvedilol (Coreg) 25 mg PO BIDWM LIAD PRN Reason: Protocol Stop: 03/01/18 08:01 Last Admin: 08/30/17 08:20 Dose: 25 mg Dextrose/Water (Dextrose 50% (Syg)) 25 ml IVP AD PRN PRN Reason: Hypoglycemia Stop: 02/28/18 21:51 Docusate Sodium (Colace) 100 mg PO DAILY [facility] PRN Reason: Protocol Stop: 03/01/18 09:01 Last Admin: 08/30/17 08:20 Dose: 100 mg Famotidine (Pepcid) 10 mg PO BIDAC LIDA PRN Reason: Protocol Stop: 03/01/18 07:31 Last Admin: 08/30/17 08:23 Dose: 10 mg Furosemide (Lasix) 40 mg PO DAILY LIDA Stop: 03/01/18 09:01 Last Admin: 08/30/17 08:19 Dose: 40 mg Gabapentin (Neurontin) 100 mg PO TID [facility] Stop: 03/01/18 09:01 Last Admin: 08/30/17 08:19 Dose: 100 mg Glimepiride (Amaryl) 2 mg PO DAILY [facility] Stop: 03/01/18 09:01 Last Admin: 08/30/17 08:21 Dose: 2 mg Glucagon (Glucagen) 1 mg IM ONCE PRN PRN Reason: Hypoglycemia Stop: 02/28/18 21:51 Glucose (Gluctose) 15 gm PO ONCE PRN PRN Reason: Hypoglycemia Stop: 02/28/18 21:51 Glucose (Gluctose) 30 gm PO ONCE PRN PRN Reason: Hypoglycemia Stop: 02/28/18 21:51 Heparin Sodium (Porcine) (Heparin) 4,500 unit 70 unit/kg (4500 unit) IVP Q6HR PRN PRN Reason: SEE COMMENTS Stop: 02/28/18 16:46 Last Admin: 08/30/17 02:40 Dose: 4,200 unit Heparin Sodium (Porcine) (Heparin) 2,300 unit 35 unit/kg (2300 unit) IVP Q6H PRN PRN Reason: SEE COMMENTS Stop: 02/28/18 16:46 Diltiazem HCl 125 mg/ Dextrose 125 mls @ 5 mls/hr IVC .Q24H LIDA; 5 MG/HR PRN Reason: Protocol Stop: 02/28/18 15:46 Last Admin: 08/30/17 08:25 Dose: 10 mg/hr, 10 mls/hr Heparin Sodium/Dextrose (Heparin 25,000 Unit/500 Ml D5w) 25,000 unit in 500 mls @ 18.035 mls/hr IVC .Q24H LIDA; 14 UNIT/KG/HR PRN Reason: Protocol Stop: 02/28/18 16:46 Last Titration: 08/30/17 02:11 Dose: 17.85 unit/kg/hr, 23 mls/hr Azithromycin 250 mg/ Dextrose 250 mls @ 252 mls/hr IVPB Q24H LIDA Stop: 02/28/18 22:01 Last Admin: 08/29/17 23:37 Dose: 252 mls/hr Dextrose (Dextrose 5%) 1,000 mls @ 100 mls/hr IVC .Q10H PRN PRN Reason: HYPOGLYCEMIA Stop: 02/28/18 21:51 Insulin Human Lispro (Humalog) 0 units SQ TIDAC LIDA PRN Reason: Protocol Stop: 03/01/18 07:31 Last Admin: 08/30/17 09:44 Dose: 6 units Insulin Human Lispro (Humalog) 0 units SQ HS LIDA PRN Reason: Protocol Stop: 03/01/18 21:01 Methylprednisolone (Solu-Medrol) 40 mg IVP Q6HR [facility] Stop: 03/01/18 00:01 Last Admin: 08/30/17 05:52 Dose: 40 mg Morphine Sulfate (Morphine Sulfate) 4 mg IVP Q4HR PRN PRN Reason: Severe Pain (7-10) Stop: 02/28/18 21:40 Naloxone HCl (Narcan) 0.4 mg IVP Q2MIN PRN PRN Reason: Opioid Reversal Stop: 02/28/18 21:40 Ondansetron HCl (Zofran Odt) 8 mg SL Q4HR PRN PRN Reason: Nausea Oxycodone HCl (Roxicodone) 30 mg PO Q8H PRN PRN Reason: Pain Last Admin: 08/30/17 08:22 Dose: 30 mg Laboratory Tests 08/29/17 08/30/17 08/30/17 15:44 00:25 00:25 Hgb 9.4 L D Creatinine 2.28 H Magnesium 1.4 L Troponin I 0.12 H* 08/30/17 08:15 Hgb Creatinine Magnesium Troponin I 0.26 H* - Imaging and Cardiology Chest Xray: report reviewed Echo: report reviewed Cardiac cath: report reviewed - EKG Interpretation EKG results cardiology: personally reviewed (ECG with atrial flutter with RVR, HR 155.), other (Telemetry reviewed with average HR previous 12 hours noted to be 102, atrial flutter. PVCs noted. Longest pause 1.9 seconds.) Consult Discharge Plan - Plan Referrals: Jeromy Wall MD [Primary Care Provider] - 09/07/17 2:00 pm
[2017-08-30] MEDS: Budesonide/Formoterol 160/4.5 MDI IH SCH ×2 (10:51→23:02)
[2017-08-30] MEDS: Diltiazem CD (24hr) 120 MG CAPSULE PO SCH (14:44)
[2017-08-30] MEDS: Heparin 25,000 UNIT/500 ML D5W 25,000 UNIT/500 ML MLS IVC SCH (16:28)
[2017-08-30] MEDS ORDERED: *HR* Warfarin 7.5 MG TABLET PO ONE (18:00)
[2017-08-30] MEDS: Azithromycin 250 MG in D5% in Water 250 ML IVPB SCH (22:32)
[2017-08-31] MEDS: *HR* OxyCODONE Immed Rel 15 MG TABLET PO PRN ×3 (00:20→16:33)
[2017-08-31] MEDS: Ipratropium/Albuterol Neb 3 ML IH SCH ×4 (03:41→22:14)
[2017-08-31 05:05] LABS: Hematocrit 32.8 % (37.5-50.1); Hemoglobin 9.9 g/dL (12.9-16.9); Immature Granulocytes % 0.5 % (0-4); Lymphocytes # 0.4 K/mcL (0.6-4.6); Lymphocytes % 4.9 %; Mean Corpuscular HGB Conc 30.2 g/dL (31.6-35.5); Mean Corpuscular Hemoglobin 27.7 pg (28.0-33.3); Mean Corpuscular Volume 91.9 fL (83.0-100.0); Mean Platelet Volume 10.7 fL (9.4-12.4); Monocytes # 0.1 K/mcL (0.0-1.3); Monocytes % 1.2 %; Platelet Count 266 K/mcL (140-400); Red Blood Count 3.57 M/mcL (4.19-5.50); Red Cell Distribution Width 17.4 % (11.5-14.5); Segmented Neutrophils % 93.4 %
[2017-08-31 05:13] LABS: INR 1.2; Prothrombin Time 13.1 Seconds (9.4-12.1)
[2017-08-31 05:23] LABS: Calcium 8.9 mg/dL (8.6-10.8); Magnesium 2.2 mg/dL (1.6-2.6); Potassium 4.1 mEq/L (3.5-4.5)
[2017-08-31] MEDS: MethylPREDNISolone 40 MG/ML VIAL IVP SCH ×3 (05:29→16:26)
--- NOTE | 2017-08-31 07:11 | Internal Med Progress Note ---
<Gerber Louis - Last Filed: 08/31/17 15:00> Date of Encounter: 08/31/17 Time of Encounter: 07:10 - Assessment and plan (1) Atrial flutter Current Visit: Yes Status: Acute Assessment and plan: A. fib flutter, rate controlled now off Cardizem drip Continue Cardizem 120mg PO daily. TSH 1.218, free T4 1.04 CHADS-VASc Score 4, patient reports stopping anticoagulation due to chemo induced hemoptysis Patient will need anticoagulation due to increased risk for CVA. Cardiology recommends bridging to Coumadin therapy. He would not be an ideal candidate for a novel agent due to end-stage renal disease and valvular disease. Case discussed with patient's dust box worker Dr. Calero on 08/30/17 who agreed with starting anticoagulation at this time as long as he is not bleeding Patient inquiring if his life science technical officer will be able to monitor his INR levels during dialysis. Cardiology consulted and signed off Follow-up with cardiology/Dr. Esteban as outpatient Qualifiers: Atrial flutter type: typical Qualified Code(s): I48.3 - Typical atrial flutter (2) Hypomagnesemia Current Visit: No Status: Resolved Assessment and plan: Mag 1.4 --> 2.2 Supplement Mag Continue to monitor (3) Elevated troponin Current Visit: Yes Status: Chronic Assessment and plan: Serial troponin 0.12 --> 0.26 --> 0.25 Chronic troponemia in the setting of A-fib RVR, ESRD, CAD. This likely represents demand ischemia. Treatment with rate control Discontinue Heparin drip once coumadin therapeutic Cardiology signed off (4) ESRD (end stage renal disease) on dialysis Current Visit: Yes Status: Acute Assessment and plan: Known ESRD, s/p left nephrectomy On HD MWF, Continue HD as scheduled Avoid nephrotoxins Nephrology following. (5) Acute and chronic respiratory failure ([id number]) Current Visit: Yes Status: Acute Assessment and plan: Patient wears 2.5 L home O2 at baseline Desaturation on RA prior to admission Qualifiers: Respiratory failure complication: hypoxia Qualified Code(s): J96.21 - Acute and chronic respiratory failure with hypoxia (6) Acute exacerbation of chronic obstructive airways disease Current Visit: Yes Status: Acute Assessment and plan: IV steroids, duonebs, IV antibiotics (7) History of lung cancer Current Visit: No Status: Chronic Assessment and plan: History of squamous cell carcinomas, Follows with [facility]. Patient reports has finished chemo and radiation. He underwent last chemoradiation April 2017 Bronchoscopy 05/21/17 revealed extensive mucoid secretions throughout the tracheobronchial tree worse in the right upper lobe. There were no other obstructing lesions Continue to monitor (8) Diabetes mellitus, type 2 Current Visit: No Status: Chronic Assessment and plan: HGB a1c 4.8 on 05/19/17 Continue accuchecks and SSI Qualifiers: Diabetes mellitus complication status: with unspecified complications Diabetes mellitus mcc insulin use: without terminologist use Qualified Code( s): E11.8 - Type 2 diabetes mellitus with unspecified complications (9) CAD (coronary artery disease) Current Visit: No Status: Chronic Assessment and plan: Continue current management Qualifiers: Coronary Disease-Associated Artery/Lesion type: bypass graft [place] vs. transplanted heart: [place] heart Associated angina: without angina Qualified Code(s): I25.810 - Atherosclerosis of coronary artery bypass graft(s) without angina pectoris (10) HTN (hypertension) Current Visit: No Status: Chronic Assessment and plan: Coreg Qualifiers: Hypertension type: essential hypertension Qualified Code(s): I10 - Essential (primary) hypertension (11) HLD (hyperlipidemia) Current Visit: No Status: Chronic Assessment and plan: Continue statin Qualifiers: Hyperlipidemia type: mixed hyperlipidemia Qualified Code(s): E78.2 - Mixed hyperlipidemia (12) GERD (gastroesophageal reflux disease) Current Visit: No Status: Chronic Assessment and plan: Continue to monitor Qualifiers: Esophagitis presence: without esophagitis Qualified Code(s): K21.9 - Gastro -esophageal reflux disease without esophagitis (13) DVT prophylaxis Current Visit: No Status: Acute Assessment and plan: Heparin ggt, bridge to Coumadin Of note, patient inquiring if his life science technical officer will be able to monitor his INR level during dialysis. - Subjective Interval history: Patient seen and examined. Patient reports palpitations and is currently on Cardizem PO and Heparin drip. He reports minimal oozing of blood at HD graft site this AM since stating Warfarin last PM. He also reports mild throat irritation from bronchodilators. Patient denies fever, chills, CP, SOB, abd pain , N/V/D, hemoptysis, melena, or leg edema. His SpO2 is 95% today at 2L O2 via NC. Of note, patient inquiring if his life science technical officer will be able to monitor his INR level during dialysis. - Constitutional Vitals: Temp Pulse Resp BP Pulse Ox 98.3 F 108 16 115/94 89 08/31/17 04:00 08/31/17 04:00 08/31/17 04:00 08/31/17 04:00 08/31/17 04:00 General appearance: Present: cooperative, A&O X 3, pleasant, no acute distress, answers questions appropriately - Head Head exam: Present: atraumatic, normal inspection, normocephalic - Eye Eye exam: Present: EOMI, PERRL - ENT ENT exam: Present: mucous membranes moist, normal oropharynx - Neck Neck exam general surgery: Present: normal inspection, supple. Absent: tenderness - Respiratory Respiratory exam: Present: decreased breath sounds (imprved air movement B/L), wheezes (mild). Absent: accessory muscle use, respiratory distress - Cardiovascular Cardiovascular exam: Present: irregular rhythm, +S1, +S2 - GI/Abdominal GI/Abdominal exam: Present: normal bowel sounds, soft. Absent: distended, guarding, tenderness - Extremities Exam Extremities exam: Present: full ROM, normal inspection, warm. Absent: tenderness Additional comments: right arm HD graft in place with 1cm area of blood on dressing, no active hemorrhage. - Back Exam Back exam: Present: normal inspection. Absent: paraspinal tenderness, tenderness - Neurological Exam Neurological exam: Present: alert, oriented X3, no focal deficits. Absent: speech deficit - Psychiatric Psychiatric exam: Present: normal affect, normal mood - Skin Skin exam: Present: dry, normal color, warm Internal Medicine: Result - Labs CBC & Chem 7: 08/31/17 04:34 08/31/17 04:34 Labs: Short CBC 08/31/17 Range/Units 04:34 WBC 8.5 (4.3-11.1) K/mcL Hgb 9.9 L (12.9-16.9) g/dL Hct 32.8 L (37.5-50.1) % Plt Count 266 (140-400) K/mcL Neutrophils # 8.0 (1.6-8.9) K/mcL BMP 08/31/17 04:34 Sodium 135 L Potassium 4.1 Chloride 96 L Carbon Dioxide 26 BUN 56 H D Creatinine 3.77 H D Glucose 145 H Calcium 8.9 Cardiac Enzymes 08/30/17 08/30/17 Range/Units 08:15 14:27 Troponin I 0.26 H* 0.25 H* (0-0.03) ng/mL - ABG Interpretation ABG results: PT/INR, D-dimer PT 13.1 Seconds (9.4-12.1) H 08/31/17 04:34 - Pulse Oximetry Interpretation Digit-Finger Pulse Oximetry Readin (on L O2 via NC) Actions taken: none Consult Discharge Plan - Plan Instructions: Heart Failure (DC), Atrial Flutter (DC), Pacemaker (DC), Hemodialysis (DC), Hemodialysis (GEN), Diabetes Mellitus Type 2 in Adults (DC), Chronic Obstructive Pulmonary Disease (DC), Chronic Hypertension (DC), Anemia ( GEN), Cigarette Smoking and Your Health, [employer] (GEN) Referrals: Jeromy Wall MD [Primary Care Provider] - 09/07/17 2:00 pm <Nehemiah Doyle - Last Filed: 08/31/17 17:35> Date of Encounter: 08/31/17 - Assessment and plan (1) Atrial fibrillation Current Visit: Yes Status: Acute Qualifiers: Atrial fibrillation type: persistent Qualified Code(s): I48.1 - Persistent atrial fibrillation (2) Anemia in CKD (chronic kidney disease) Current Visit: No Status: Chronic Qualifiers: Chronic kidney disease stage: on chronic dialysis Qualified Code(s): N18.6 - End stage renal disease; D63.1 - Anemia in chronic kidney disease; D63.1 - Anemia in chronic kidney disease; Z99.2 - Dependence on renal dialysis; Z99.2 - Dependence on renal dialysis; Z99.2 - Dependence on renal dialysis; Z99.2 - Dependence on renal dialysis (3) CAD (coronary artery disease) Current Visit: No Status: Chronic Qualifiers: Coronary Disease-Associated Artery/Lesion type: bypass graft [place] vs. transplanted heart: [place] heart Associated angina: without angina Qualified Code(s): I25.810 - Atherosclerosis of coronary artery bypass graft(s) without angina pectoris (4) CHF (congestive heart failure) Current Visit: No Status: Chronic Qualifiers: Congestive heart failure type: systolic Congestive heart failure chronicity : chronic Qualified Code(s): I50.22 - Chronic systolic (congestive) heart failure (5) COPD (chronic obstructive pulmonary disease) Current Visit: No Status: Chronic Qualifiers: COPD type: unspecified COPD Qualified Code(s): J44.9 - Chronic obstructive pulmonary disease, unspecified (6) Diabetes mellitus Current Visit: No Status: Chronic Qualifiers: Diabetes mellitus type: type 2 Diabetes mellitus complication status: with kidney complications Diabetes mellitus complication detail: with chronic kidney disease Diabetes mellitus terminologist insulin use: without mcc use Chronic kidney disease stage: on chronic dialysis Qualified Code(s): E11.22 - Type 2 diabetes mellitus with diabetic chronic kidney disease; N18.6 - End stage renal disease; Z99.2 - Dependence on renal dialysis (7) HTN (hypertension) Current Visit: No Status: Chronic Qualifiers: Hypertension type: essential hypertension Qualified Code(s): I10 - Essential (primary) hypertension - Constitutional Vitals: Temp Pulse Resp BP Pulse Ox 98.1 F 102 17 106/84 95 08/31/17 15:00 08/31/17 15:00 08/31/17 16:23 08/31/17 15:00 08/31/17 16:23 Internal Medicine: Result - Labs CBC & Chem 7: 08/31/17 04:34 08/31/17 04:34 Labs: Short CBC 08/31/17 Range/Units 04:34 WBC 8.5 (4.3-11.1) K/mcL Hgb 9.9 L (12.9-16.9) g/dL Hct 32.8 L (37.5-50.1) % Plt Count 266 (140-400) K/mcL Neutrophils # 8.0 (1.6-8.9) K/mcL BMP 08/31/17 04:34 Sodium 135 L Potassium 4.1 Chloride 96 L Carbon Dioxide 26 BUN 56 H D Creatinine 3.77 H D Glucose 145 H Calcium 8.9 - ABG Interpretation ABG results: PT/INR, D-dimer PT 13.1 Seconds (9.4-12.1) H 08/31/17 04:34 - Impressions Impressions Echocardiogram 08/30/17 14:24 Impressions: LVEF 45%. Global and segmental LV systolic dysfunction. Indeterminate diastolic function. Mildly dilated left ventricle. Atypical septal motion. Normal right ventricular structure and function. Moderate to severe eccentric mitral regurgitation posteriorly directed. Moderate pulmonary hypertension. Left Ventricular Wall Motion: Rest Echo Findings The apex, apical inferior, mid inferior, basal inferior, apical anterior, mid anterior, basal anterior, apical septal, mid inferior septal, basal inferior septal, apical lateral, mid anterior lateral, basal anterior lateral, mid anterior septal, mid inferior lateral, basal anterior septal and basal inferior lateral amin were hypokinetic. Findings: Study Quality * Technically adequate exam. ECG Findings * Atrial fibrillation. Left Ventricle * Indeterminate diastolic function. * Mildly dilated left ventricle. * Atypical septal motion. * Possible mild increase in LV wall thickness. * LVEF 45%. Right Ventricle * Normal right ventricular structure and function. Left Atrium * Moderately dilated left atrium. Right Atrium * Normal right atrial size. Aortic Valve * No aortic regurgitation. * Aortic valve not well visualized. * Small gradient across the AV by Doppler (PV 2m/s, MG 9 mmHg) - LVOT was not well interrogated for assessment of stenosis. Mitral Valve * Moderate to severe eccentric mitral regurgitation posteriorly directed. * Apically displaced mitral leaflets. * Mildly thickened mitral valve leaflets. * No mitral stenosis. Tricuspid Valve * Tricuspid valve not well visualized. * Trace tricuspid regurgitation. * Estimated RA pressure is 8 mmHg. * Estimated RVSP is 56 mmHg. * Moderate pulmonary hypertension. Pulmonic Valve * Pulmonic valve is not well visualized. * No pulmonic stenosis. * No pulmonic regurgitation. Pulmonary Artery * Pulmonary artery not well visualized. Aorta * Normally sized aortic root. Pericardium * There is no pericardial effusion present. Interatrial Septum * No evidence of PFO by color Doppler. IVC * The IVC is not dilated. * < 50% respiratory change. - Attending Attestation I examined this patient and my medical decision-making was reviewed with the Resident Physician on 08/31/17. I agree with the documented findings, disposition and treatment plan as described except to the extent set forth below. Mr Guardado is currently admitted for acute rapid a fib - new onset. He is currently transitioning to coumadin and remains on heparin drip. He remains moderate to high risk due to potential for worsening cardiac status. Mr Guardado feels OK. He is eating lunch. He is now off cardizem drip. Rate is essentially controlled at this time. No fever or chills. No CP or SOB. Had dialysis today. Exam Alert. Comfortable Heart irreg Lungs no wheeze No edema I/P 1. A fib - persistent 2. ESRD Transitioning to coumadin. Requires heparin drip due to ESRD Further diagnoses and plan as above.
[2017-08-31] MEDS: Calcium Acetate 667 MG CAPSULE PO SCH ×3 (08:31→16:26)
[2017-08-31] MEDS: Famotidine 20 MG TABLET PO SCH ×2 (08:32→16:26)
[2017-08-31] MEDS ORDERED: 0.9 % Sodium Chloride 250 ML IVC PRN (09:02)
[2017-08-31] MEDS ORDERED: 0.9 % Sodium Chloride 1,000 ML PRIME SCH (09:15)
[2017-08-31] MEDS: Budesonide/Formoterol 160/4.5 MDI IH SCH ×2 (10:36→22:14)
[2017-08-31] MEDS: Heparin 25,000 UNIT/500 ML D5W 25,000 UNIT/500 ML MLS IVC SCH (11:09)
--- NOTE | 2017-08-31 11:54 | Nephrology Progress Note ---
Date of Encounter: 08/31/17 Time of Encounter: 11:51 - Assessment and Plan (1) Atrial fibrillation Current Visit: Yes Status: Acute Afib/aflutter - per cardiology and primary team. Patient will need coumadin with therapeutic INR. Qualifiers: Atrial fibrillation type: persistent Qualified Code(s): I48.1 - Persistent atrial fibrillation (2) ESRD (end stage renal disease) on dialysis Current Visit: Yes Status: Acute HD MWF Renal diet Renal dose medications. Patient tolerating dialysis today. (3) Cardiomyopathy Current Visit: Yes Status: Chronic Per cardiology. Patient is euvolemic. Qualifiers: Cardiomyopathy type: unspecified Qualified Code(s): I42.9 - Cardiomyopathy , unspecified (4) Anemia Current Visit: No Status: Chronic Monitor hemoglobin. No active bleeding. Qualifiers: Anemia type: other cause Other causes of anemia: chronic disease, other Qualified Code(s): D63.8 - Anemia in other chronic diseases classified elsewhere Subjective Principal diagnosis: ESRD Interval history: Patient seen on dialysis. No new complaint. He feels much better. Objective - Vital Signs Vital signs: Vital Signs Temp Pulse Resp BP Pulse Ox 08/31/17 11:35 117/72 08/31/17 11:20 121/57 08/31/17 11:05 114/65 08/31/17 10:50 126/77 08/31/17 10:35 101/64 08/31/17 10:20 120/66 08/31/17 10:05 129/71 08/31/17 07:00 97.9 F 120 18 96/73 95 08/31/17 04:00 98.3 F 108 16 115/94 89 08/31/17 03:41 17 94 08/30/17 23:02 18 93 08/30/17 20:00 97.5 F L 101 17 117/91 97 08/30/17 16:50 16 97 08/30/17 16:00 91 18 107/94 97 Intake and Output 08/30/17 08/31/17 08/31/17 23:59 07:59 15:59 Intake Total 1201 / 1201 762 / 762 500 / 500 Output Total 200 / 200 100 / 100 Balance 1001 / 1001 662 / 662 500 / 500 Intake: IV Fluids 221 / 221 525 / 525 140 / 140 Heparin 25,000 UNIT/500 ML D5W 221 / 221 275 / 275 140 / 140 25,000 unit In 500 ml @ 14 UNIT /KG/HR 18.035 mls/hr IVC .Q24H [facility] Rx#:[id number] Zithromax 250 mg In Dextrose 5% 250 / 250 250 ML @ 252 mls/hr IVPB Q24H [facility] Rx#:[id number] Oral 980 / 980 237 / 237 360 / 360 Output: Urine 200 / 200 100 / 100 Other: Meal Dinner Breakfast Percent of Meal Consumed 100% 100% Blood Glucose* 260 221 Hemodialysis Net Fluid Removed 2102 (mL) - General Appearance General appearance: Present: well-developed, well-nourished, frail EENT: Present: ATNC Neck: Present: supple Cardiology: Present: no edema Additional Comments: tachycardic and irregular on telemetry improved by the time he was on dialysis. Neurologic: Present: alert and oriented x3 Psychiatric: Present: mood/affect appropriate - Lab 08/31/17 04:34 08/31/17 04:34 Most recent lab results Calcium 8.9 mg/dL (8.6-10.8) 08/31/17 04:34 Magnesium 2.2 mg/dL (1.6-2.6) 08/31/17 04:34 Consult Discharge Plan - Plan Referrals: Jeromy Wall MD [Primary Care Provider] - 09/07/17 2:00 pm
[2017-08-31 12:36] LABS: Hepatitis B Surface Antibody 0.71 mIU/mL; Hepatitis B Surface Antigen Nonreactive (Nonreactive)
[2017-08-31] MEDS: Insulin LISPRO 300 UNITS/3 ML VIAL SQ SCH ×4 (13:55→20:19)
[2017-08-31] MEDS: Chloraseptic Spray 177 ML BOTTLE MM SCH ×4 (14:07→20:21)
[2017-08-31] MEDS: Gabapentin 100 MG CAPSULE PO SCH ×3 (14:07→20:20)
[2017-08-31] MEDS: *HR* Glimepiride 4 MG TABLET PO SCH (14:39)
[2017-08-31] MEDS: Diltiazem CD (24hr) 120 MG CAPSULE PO SCH (14:40)
[2017-08-31] MEDS: Furosemide 40 MG TABLET PO SCH (14:40)
[2017-08-31] MEDS: *HR* Warfarin 5 MG TABLET PO SCH (16:27)
[2017-08-31] MEDS ORDERED: 0.9 % Sodium Chloride 2,000 ML ONE (17:12)
[2017-08-31] MEDS ORDERED: Warfarin perPT PO PRN (18:00)
[2017-08-31] MEDS ORDERED: Mag Hydrox/Al Hydrox/Simeth 30 ML UDC PO SCH (21:00)
[2017-08-31] MEDS: Mag Hydrox/Al Hydrox/Simeth 30 ML UDC PO PRN (21:25)
[2017-08-31] MEDS: Azithromycin 250 MG in D5% in Water 250 ML IVPB SCH (22:27)
[2017-09-01] MEDS: *HR* OxyCODONE Immed Rel 15 MG TABLET PO PRN ×3 (00:32→17:19)
[2017-09-01] MEDS: Ipratropium/Albuterol Neb 3 ML IH SCH ×4 (03:47→21:40)
[2017-09-01] MEDS: Heparin 25,000 UNIT/500 ML D5W 25,000 UNIT/500 ML MLS IVC SCH (04:53)
[2017-09-01 06:24] LABS: Hematocrit 33.2 % (37.5-50.1); Hemoglobin 9.7 g/dL (12.9-16.9); Immature Granulocytes % 0.6 % (0-4); Lymphocytes # 0.3 K/mcL (0.6-4.6); Lymphocytes % 3.3 %; Mean Corpuscular HGB Conc 29.2 g/dL (31.6-35.5); Mean Corpuscular Hemoglobin 27.5 pg (28.0-33.3); Mean Corpuscular Volume 94.1 fL (83.0-100.0); Mean Platelet Volume 10.3 fL (9.4-12.4); Monocytes # 0.4 K/mcL (0.0-1.3); Monocytes % 3.5 %; Neutrophils # 9.5 K/mcL (1.6-8.9); Platelet Count 213 K/mcL (140-400); Red Blood Count 3.53 M/mcL (4.19-5.50); Segmented Neutrophils % 92.6 %
[2017-09-01 06:33] LABS: Prothrombin Time 21.8 Seconds (9.4-12.1)
[2017-09-01 06:38] LABS: Calcium 8.7 mg/dL (8.6-10.8); Magnesium 2.2 mg/dL (1.6-2.6); Potassium 3.9 mEq/L (3.5-4.5)
[2017-09-01] MEDS: Furosemide 40 MG TABLET PO SCH (08:10)
[2017-09-01] MEDS: *HR* Glimepiride 4 MG TABLET PO SCH (08:10)
[2017-09-01] MEDS: Gabapentin 100 MG CAPSULE PO SCH ×3 (08:11→21:15)
[2017-09-01] MEDS: Diltiazem CD (24hr) 120 MG CAPSULE PO SCH (08:11)
[2017-09-01] MEDS: Calcium Acetate 667 MG CAPSULE PO SCH ×3 (08:11→17:21)
[2017-09-01] MEDS: Famotidine 20 MG TABLET PO SCH ×2 (08:13→17:20)
[2017-09-01] MEDS: Insulin LISPRO 300 UNITS/3 ML VIAL SQ SCH ×4 (08:13→21:12)
[2017-09-01] MEDS: Chloraseptic Spray 177 ML BOTTLE MM SCH ×4 (08:14→21:15)
[2017-09-01] MEDS ORDERED: predniSONE 20 MG TABLET PO SCH (09:00)
--- NOTE | 2017-09-01 10:30 | Nephrology Progress Note ---
Date of Encounter: 09/01/17 Time of Encounter: 10:27 - Assessment and Plan (1) Atrial fibrillation Current Visit: Yes Status: Acute Afib/aflutter - per cardiology and primary team. Patient will need coumadin with therapeutic INR. INR 2.0 today. Qualifiers: Atrial fibrillation type: persistent Qualified Code(s): I48.1 - Persistent atrial fibrillation (2) ESRD (end stage renal disease) on dialysis Current Visit: Yes Status: Acute HD MWF Renal diet Renal dose medications. Patient dyspnea likely bronchospasm, but if he does not improve with bronchodilators will consider UF. (3) Cardiomyopathy Current Visit: Yes Status: Chronic Per cardiology. Patient is euvolemic. Qualifiers: Cardiomyopathy type: unspecified Qualified Code(s): I42.9 - Cardiomyopathy , unspecified (4) Anemia Current Visit: No Status: Chronic Monitor hemoglobin. No active bleeding. Qualifiers: Anemia type: other cause Other causes of anemia: chronic disease, other Qualified Code(s): D63.8 - Anemia in other chronic diseases classified elsewhere (5) Dyspnea Current Visit: No Status: Acute Patient with dyspnea and wheezing on exam. Faint rales. I suspect bronchospasm, but if no improvement after dialysis will have to consider UF. Qualifiers: Dyspnea type: shortness of breath Qualified Code(s): R06.02 - Shortness of breath Subjective Principal diagnosis: ESRD Interval history: Patient seen. He is sitting in a chair. He complains of dyspnea, but no chest pain. Objective - Vital Signs Vital signs: Vital Signs Temp Pulse Resp BP Pulse Ox 09/01/17 08:24 95 09/01/17 07:28 97.8 F 80 16 138/79 95 09/01/17 04:37 97.7 F 93 19 132/102 98 09/01/17 03:47 18 97 09/01/17 00:40 97 15 134/91 08/31/17 22:14 18 98 08/31/17 19:49 97.9 F 83 17 109/78 96 08/31/17 16:23 17 95 08/31/17 15:00 98.1 F 102 17 106/84 95 08/31/17 13:05 97.8 F 18 138/67 08/31/17 12:50 131/68 08/31/17 12:45 120/61 11/03/17 12:20 123/53 08/31/17 12:05 101/61 08/31/17 11:50 107/53 08/31/17 11:35 117/72 08/31/17 11:20 121/57 08/31/17 11:05 114/65 08/31/17 10:50 126/77 08/31/17 10:35 101/64 Intake and Output 08/31/17 09/01/17 09/01/17 23:59 07:59 15:59 Intake Total 424 / 424 716 / 716 360 / 360 Output Total 180 / 180 0 / 0 Balance 244 / 244 716 / 716 360 / 360 Intake: IV Fluids 184 / 184 316 / 316 Heparin 25,000 UNIT/500 ML D5W 184 / 184 316 / 316 25,000 unit In 500 ml @ 14 UNIT /KG/HR 18.035 mls/hr IVC .Q24H [facility] Rx#:[id number] Oral 240 / 240 400 / 400 360 / 360 Output: Urine 180 / 180 0 / 0 Other: Meal Dinner Breakfast Percent of Meal Consumed 50% 100% Weight 63.8 kg Blood Glucose* 149 182 Patient Weight 09/01/17 23:59 Weight 63.8 kg - General Appearance General appearance: Present: well-developed, well-nourished, chronically ill EENT: Present: ATNC Neck: Present: supple Respiratory: Present: wheezing, rales, course breath sounds Cardiology: Present: no edema, regular rate Integumentary: Present: warm and dry Neurologic: Present: alert and oriented x3 Musculoskeletal: Present: no cyanosis Psychiatric: Present: mood/affect appropriate - Lab 09/01/17 05:44 09/01/17 05:44 Most recent lab results Calcium 8.7 mg/dL (8.6-10.8) 09/01/17 05:44 Magnesium 2.2 mg/dL (1.6-2.6) 09/01/17 05:44 - VTE Documentation of Mechanical Device: Intermittent pneumatic compression device Consult Discharge Plan - Plan Instructions: Heart Failure (DC), Atrial Flutter (DC), Pacemaker (DC), Hemodialysis (DC), Hemodialysis (GEN), Diabetes Mellitus Type 2 in Adults (DC), Chronic Obstructive Pulmonary Disease (DC), Chronic Hypertension (DC), Anemia ( GEN), Cigarette Smoking and Your Health, Full Stack [employer] (GEN) Referrals: Jeromy Wall MD [Primary Care Provider] - 09/07/17 2:00 pm
[2017-09-01] MEDS: Budesonide/Formoterol 160/4.5 MDI IH SCH ×2 (10:44→21:40)
--- NOTE | 2017-09-01 10:51 | Internal Med Progress Note ---
<Fahad Link - Last Filed: 09/01/17 14:29> Date of Encounter: 09/01/17 Time of Encounter: 08:45 - Assessment and plan (1) Atrial flutter Current Visit: Yes Status: Acute Assessment and plan: - A-fib/flutter, currently rate-controlled - Continue Coreg and Cardizem. - CHADS-VASc Score 4. Per patient, anticoagulation was stopped due to chemo induced hemoptysis - Cardiology recommends bridging to Coumadin therapy. Not an ideal candidate for NOAC due to end-stage renal disease and valvular disease. - Case was discussed with patient's grinder and plater Dr. Calero on 08/30/17 who agreed with starting anticoagulation at this time as long as he is not bleeding. - INR 2.0 today. Continue Coumadin and discontinue heparin drip. Will recheck PT /INR tomorrow. - Case was discussed with suspect artist supervisor Dr. Gallagher. The goal is to make an arrangement so that patient can have his INR levels checked during dialysis. - Patient will need outpatient follow-up with cardiology Dr. Esteban. Qualifiers: Atrial flutter type: typical Qualified Code(s): I48.3 - Typical atrial flutter (2) ESRD (end stage renal disease) Current Visit: No Status: Chronic Assessment and plan: - ESRD on HD MWF. - S/p left nephectomy. - Avoid nephrotoxin. - Last HD on 08/31/17. - Appreciate nephrology following regarding patient's dialysis need. (3) Anemia in CKD (chronic kidney disease) Current Visit: No Status: Chronic Assessment and plan: - Hgb stable at 9.7 today. - Continue to monitor. Qualifiers: Chronic kidney disease stage: on chronic dialysis Qualified Code(s): N18.6 - End stage renal disease; D63.1 - Anemia in chronic kidney disease; D63.1 - Anemia in chronic kidney disease; Z99.2 - Dependence on renal dialysis; Z99.2 - Dependence on renal dialysis; Z99.2 - Dependence on renal dialysis; Z99.2 - Dependence on renal dialysis (4) CHF (congestive heart failure) Current Visit: No Status: Chronic Assessment and plan: - Echocardiogram on 08/30/17 found LVEF 45% with global & segmental LV systolic dysfunction. Indeterminate diastolic dysfunction. - Continue Lasix. - Continue strict I/O and daily weight. Qualifiers: Congestive heart failure type: systolic Congestive heart failure chronicity : chronic Qualified Code(s): I50.22 - Chronic systolic (congestive) heart failure (5) COPD (chronic obstructive pulmonary disease) Current Visit: No Status: Chronic Assessment and plan: - Continue bronchodilators, Symbicort, steroid, supplemental oxygen. Qualifiers: COPD type: unspecified COPD Qualified Code(s): J44.9 - Chronic obstructive pulmonary disease, unspecified (6) Diabetes mellitus Current Visit: No Status: Chronic Assessment and plan: - Insulin sliding scale and glucose monitoring. Qualifiers: Diabetes mellitus type: type 2 Diabetes mellitus complication status: with kidney complications Diabetes mellitus complication detail: with chronic kidney disease Diabetes mellitus senior care insulin use: without supervisor intermediates use Chronic kidney disease stage: on chronic dialysis Qualified Code(s): E11.22 - Type 2 diabetes mellitus with diabetic chronic kidney disease; N18.6 - End stage renal disease; Z99.2 - Dependence on renal dialysis (7) HTN (hypertension) Current Visit: No Status: Chronic Assessment and plan: - BP within normal range. - Continue current antihypertensive regimen. Qualifiers: Hypertension type: essential hypertension Qualified Code(s): I10 - Essential (primary) hypertension - Subjective Interval history: Patient was seen and examined this morning. Patient reports doing well and denies any palpitation, chest pain, diaphoresis, shortness of breath, fever, chills. Patient has concern about his INR level and likes to have that check tomorrow morning before being discharged home. - Constitutional Vitals: Temp Pulse Resp BP Pulse Ox 97.8 F 80 16 138/79 95 09/01/17 07:28 09/01/17 07:28 09/01/17 07:28 09/01/17 07:28 09/01/17 08:24 General appearance: Present: cooperative, A&O X 3, pleasant, no acute distress, answers questions appropriately - Head Head exam: Present: atraumatic, normocephalic - Eye Eye exam: Present: EOMI, conjuntiva pink, sclera anicteric - Neck Neck exam general surgery: Present: supple, trachea midline. Absent: lymphadenopathy - Respiratory Respiratory exam: Present: CTAB. Absent: accessory muscle use, rales, rhonchi, wheezes - Cardiovascular Cardiovascular exam: Present: RRR, +S1, +S2. Absent: diastolic murmur, gallop, rubs, systolic murmur - GI/Abdominal GI/Abdominal exam: Present: normal bowel sounds, soft, no peritoneal signs. Absent: distended, tenderness - Extremities Exam Extremities exam: Present: warm. Absent: calf tenderness, cyanotic, pedal edema - Neurological Exam Neurological exam: Present: oriented X3, no focal deficits. Absent: facial droop, speech deficit - Skin Skin exam: Present: dry, intact, warm Internal Medicine: Result - Labs CBC & Chem 7: 09/01/17 05:44 09/01/17 05:44 Labs: Short CBC 09/01/17 Range/Units 05:44 WBC 10.3 (4.3-11.1) K/mcL Hgb 9.7 L (12.9-16.9) g/dL Hct 33.2 L (37.5-50.1) % Plt Count 213 (140-400) K/mcL Neutrophils # 9.5 H (1.6-8.9) K/mcL BMP 09/01/17 05:44 Sodium 139 Potassium 3.9 Chloride 96 L Carbon Dioxide 31 H BUN 56 H Creatinine 3.78 H Glucose 171 H Calcium 8.7 - ABG Interpretation ABG results: PT/INR, D-dimer PT 21.8 Seconds (9.4-12.1) H D 09/01/17 05:44 - VTE Documentation of Mechanical Device: Intermittent pneumatic compression device Consult Discharge Plan - Plan Instructions: Heart Failure (DC), Atrial Flutter (DC), Pacemaker (DC), Hemodialysis (DC), Hemodialysis (GEN), Diabetes Mellitus Type 2 in Adults (DC), Chronic Obstructive Pulmonary Disease (DC), Chronic Hypertension (DC), Anemia ( GEN), Cigarette Smoking and Your Health, Loan Administrator (GEN) Referrals: Jeromy Wall MD [Primary Care Provider] - 09/07/17 2:00 pm <Nehemiah Doyle - Last Filed: 09/01/17 17:22> Date of Encounter: 09/01/17 - Assessment and plan (1) Acute and chronic respiratory failure ([id number]) Current Visit: Yes Status: Acute Qualifiers: Respiratory failure complication: hypoxia Qualified Code(s): J96.21 - Acute and chronic respiratory failure with hypoxia (2) COPD (chronic obstructive pulmonary disease) Current Visit: No Status: Chronic Qualifiers: COPD type: COPD with acute exacerbation Qualified Code(s): J44.1 - Chronic obstructive pulmonary disease with (acute) exacerbation (3) Atrial fibrillation Current Visit: Yes Status: Acute Qualifiers: Atrial fibrillation type: persistent Qualified Code(s): I48.1 - Persistent atrial fibrillation (4) Anemia in CKD (chronic kidney disease) Current Visit: No Status: Chronic Qualifiers: Chronic kidney disease stage: on chronic dialysis Qualified Code(s): N18.6 - End stage renal disease; D63.1 - Anemia in chronic kidney disease; D63.1 - Anemia in chronic kidney disease; Z99.2 - Dependence on renal dialysis; Z99.2 - Dependence on renal dialysis; Z99.2 - Dependence on renal dialysis; Z99.2 - Dependence on renal dialysis (5) CAD (coronary artery disease) Current Visit: No Status: Chronic Qualifiers: Coronary Disease-Associated Artery/Lesion type: bypass graft [place] vs. transplanted heart: [place] heart Associated angina: without angina Qualified Code(s): I25.810 - Atherosclerosis of coronary artery bypass graft(s) without angina pectoris (6) CHF (congestive heart failure) Current Visit: No Status: Chronic Qualifiers: Congestive heart failure type: systolic Congestive heart failure chronicity : chronic Qualified Code(s): I50.22 - Chronic systolic (congestive) heart failure (7) Diabetes mellitus Current Visit: No Status: Chronic Qualifiers: Diabetes mellitus type: type 2 Diabetes mellitus complication status: with kidney complications Diabetes mellitus complication detail: with chronic kidney disease Diabetes mellitus senior care insulin use: without supervisor intermediates use Chronic kidney disease stage: on chronic dialysis Qualified Code(s): E11.22 - Type 2 diabetes mellitus with diabetic chronic kidney disease; N18.6 - End stage renal disease; Z99.2 - Dependence on renal dialysis (8) HTN (hypertension) Current Visit: No Status: Chronic Qualifiers: Hypertension type: essential hypertension Qualified Code(s): I10 - Essential (primary) hypertension - Constitutional Vitals: Temp Pulse Resp BP Pulse Ox 97.8 F 79 24 97/72 100 09/01/17 11:08 09/01/17 11:08 09/01/17 15:11 09/01/17 15:11 09/01/17 15:11 Internal Medicine: Result - Labs CBC & Chem 7: 09/01/17 05:44 09/01/17 05:44 Labs: Short CBC 09/01/17 Range/Units 05:44 WBC 10.3 (4.3-11.1) K/mcL Hgb 9.7 L (12.9-16.9) g/dL Hct 33.2 L (37.5-50.1) % Plt Count 213 (140-400) K/mcL Neutrophils # 9.5 H (1.6-8.9) K/mcL BMP 09/01/17 05:44 Sodium 139 Potassium 3.9 Chloride 96 L Carbon Dioxide 31 H BUN 56 H Creatinine 3.78 H Glucose 171 H Calcium 8.7 - ABG Interpretation ABG results: PT/INR, D-dimer PT 21.8 Seconds (9.4-12.1) H D 09/01/17 05:44 - Impressions Impressions Chest X-Ray 09/01/17 15:11 IMPRESSION: Stable appearance of the chest. Opacity in the right upper lobe may represent an area of scarring. Interstitial markings may represent chronic lung changes. D/ / Lion Del Valle MD / Lion Del Valle MD Interpreting Provider: Lion Del Valle MD - Attending Attestation I examined this patient and my medical decision-making was reviewed with the Resident Physician on 09/01/17. I agree with the documented findings, disposition and treatment plan as described except to the extent set forth below. Mr Guardado is currently admitted for new atrial fib. He is bridging heparin to coumadin. He remains moderate to high risk due to potential for worsening respiratory and cardiac issues. Mr Guardado is having some difficulty breathing today. No CP. Has been wheezing. INR now 2.0. Heparin stopped. No fever or chills. No GI issues. Exam Alert Comfortable at this time Mucus membranes dry Heart irreg - not tachy Lungs with scattered wheeze Abd soft I/P 1. A fib 2. COPD 3. CHF Further diagnoses and plan as above.
--- NOTE | 2017-09-01 11:28 | Electrocardiograph Report ---
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
[2017-09-01] MEDS: Mag Hydrox/Al Hydrox/Simeth 30 ML UDC PO PRN (13:49)
[2017-09-01] MEDS: Ondansetron ODT 4 MG TAB.RAPDIS SL PRN ×2 (17:18→21:13)
[2017-09-01] MEDS: *HR* Warfarin 5 MG TABLET PO SCH (17:20)
[2017-09-01] MEDS: MethylPREDNISolone 40 MG/ML VIAL IVP SCH ×2 (17:21→23:32)
[2017-09-01] MEDS: Azithromycin 250 MG in D5% in Water 250 ML IVPB SCH (23:31)
--- NOTE | 2017-09-02 01:30 | Event Note ---
Date of Encounter: 09/02/17 Time of Encounter: 01:29 Called by RN earlier for concerns of worsening breath sounds per RN. Pt also was refusing to wear BiPap. CXR ordered showing results of possible pneumonia. I ordered blood cultures and Added Vancomycin and Zosyn to his antibiotics. Will also request ABG.
[2017-09-02] MEDS ORDERED: Furosemide 40 MG/4 ML VIAL IVP ONE (01:31)
[2017-09-02] MEDS ORDERED: Vancomycin 1,000 MG in D5% in Water 250 ML IVPB SCH (02:00)
[2017-09-02] MEDS ORDERED: Vancomycin 1,000 MG in D5% in Water 250 ML IVPB ONE (02:00)
[2017-09-02 02:45] LABS: Hemoglobin 8.5 g/dL (12.9-16.9)
[2017-09-02 02:46] LABS: Hematocrit 29.7 % (37.5-50.1); Mean Corpuscular HGB Conc 28.6 g/dL (31.6-35.5); Mean Corpuscular Hemoglobin 27.8 pg (28.0-33.3); Mean Corpuscular Volume 97.1 fL (83.0-100.0); Platelet Count 185 K/mcL (140-400); Red Blood Count 3.06 M/mcL (4.19-5.50); Red Cell Distribution Width 18.5 % (11.5-14.5)
[2017-09-02 02:50] LABS: Prothrombin Time 32.7 Seconds (9.4-12.1)
[2017-09-02 04:08] LABS: ABG Base Excess 2 mEq/L (-2 to 3); ABG HCO3 28 mEq/L (21-27); ABG Oxygen Saturation 96 % (95-98); ABG PCO2 48 mmHg (35-45); ABG PH 7.37 pH Units (7.32-7.45); ABG PO2 88 mmHg (85-104); ABG TCO2 29 mEq/L (20-26)
[2017-09-02] MEDS: Ipratropium/Albuterol Neb 3 ML IH SCH ×5 (04:14→19:43)
[2017-09-02] MEDS ORDERED: Piperacillin/Tazobactam 3.375 GM in D5% in Water 50 ML IVPB SCH (06:00)
[2017-09-02 06:33] LABS: Calcium 8.6 mg/dL (8.6-10.8); Potassium 4.6 mEq/L (3.5-4.5)
[2017-09-02] MEDS: Budesonide/Formoterol 160/4.5 MDI IH SCH ×2 (08:04→19:43)
[2017-09-02] MEDS ORDERED: Albuterol 2.5 MG/3 ML NEBULIZER IH PRN (08:04)
[2017-09-02] MEDS: *HR* Glimepiride 4 MG TABLET PO SCH (08:21)
[2017-09-02] MEDS: Furosemide 40 MG TABLET PO SCH (08:22)
[2017-09-02] MEDS: Gabapentin 100 MG CAPSULE PO SCH ×3 (08:22→22:13)
[2017-09-02] MEDS: Diltiazem CD (24hr) 120 MG CAPSULE PO SCH (08:22)
[2017-09-02] MEDS: *HR* OxyCODONE Immed Rel 15 MG TABLET PO PRN ×2 (08:22→18:38)
[2017-09-02] MEDS: Famotidine 20 MG TABLET PO SCH ×2 (08:22→15:49)
[2017-09-02] MEDS: Insulin LISPRO 300 UNITS/3 ML VIAL SQ SCH ×4 (08:23→22:14)
[2017-09-02] MEDS: MethylPREDNISolone 40 MG/ML VIAL IVP SCH ×2 (08:23→15:49)
[2017-09-02] MEDS: Calcium Acetate 667 MG CAPSULE PO SCH ×3 (08:23→15:49)
[2017-09-02] MEDS: Chloraseptic Spray 177 ML BOTTLE MM SCH ×4 (08:24→22:14)
[2017-09-02] MEDS: Mag Hydrox/Al Hydrox/Simeth 30 ML UDC PO PRN (09:02)
--- NOTE | 2017-09-02 09:52 | Internal Med Progress Note ---
<Fahad Link - Last Filed: 09/02/17 12:43> Date of Encounter: 09/02/17 Time of Encounter: 07:30 - Assessment and plan (1) Acute and chronic respiratory failure ([id number]) Current Visit: Yes Status: Acute Assessment and plan: - With desaturation on room air prior to admission. Was on 2.5 L home O2 at baseline - Episodes of acute respiratory distress yesterday afternoon and at midnight. - ABG earlier this morning showed mildly elevated pCO2 but normal pH and pO2. - Currently stable with O2 sat 96% or higher on 3L NC. - CXRs were reviewed personally. Feel it's more likely secondary to COPD exacerbation and viral respiratory infection (positive rhinovirus PCR on respiratory infection panel) rather than multifocal bacterial pneumonia - Continue bronchodilators, Symbicort and supplemental oxygen. Continue Solu- Medrol 40 mg IV q8H for now and will taper slowly later. - Okay to continue vancomycin and Zosyn for now but may consider discontinuation if patient's respiratory status improves. Blood culture pending. Qualifiers: Respiratory failure complication: hypoxia Qualified Code(s): J96.21 - Acute and chronic respiratory failure with hypoxia (2) COPD (chronic obstructive pulmonary disease) Current Visit: No Status: Chronic Assessment and plan: - Continue bronchodilators, Symbicort, Solu-Medrol and supplemental oxygen. Qualifiers: COPD type: COPD with acute exacerbation Qualified Code(s): J44.1 - Chronic obstructive pulmonary disease with (acute) exacerbation (3) Atrial flutter Current Visit: Yes Status: Acute Assessment and plan: - A-fib/flutter, currently rate-controlled - Continue Coreg and Cardizem. - CHADS-VASc Score 4. Per patient, anticoagulation was stopped due to chemo induced hemoptysis - Cardiology recommends bridging to Coumadin therapy. Not an ideal candidate for NOAC due to end-stage renal disease and valvular disease. 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 Calero on 08/30/17 who agreed with starting anticoagulation at this time as long as he is not bleeding. - INR 3.0 today. Continue Coumadin dosing per pharmacy. Will recheck PT/INR tomorrow. - Case was discussed with clerical support Dr. Gallagher. The goal is to make an arrangement so that patient can have his INR levels checked during dialysis. - Patient will need outpatient follow-up with cardiology Dr. Esteban. Qualifiers: Atrial flutter type: typical Qualified Code(s): I48.3 - Typical atrial flutter (4) ESRD (end stage renal disease) Current Visit: No Status: Chronic Assessment and plan: - ESRD on HD MWF. - S/p left nephectomy. - Avoid nephrotoxin. - Last HD on 08/31/17. - Appreciate nephrology following regarding patient's dialysis need. (5) Anemia in CKD (chronic kidney disease) Current Visit: No Status: Chronic Assessment and plan: - Hgb 8.5 today. - Continue to monitor. Qualifiers: Chronic kidney disease stage: on chronic dialysis Qualified Code(s): N18.6 - End stage renal disease; D63.1 - Anemia in chronic kidney disease; D63.1 - Anemia in chronic kidney disease; Z99.2 - Dependence on renal dialysis; Z99.2 - Dependence on renal dialysis; Z99.2 - Dependence on renal dialysis; Z99.2 - Dependence on renal dialysis (6) CHF (congestive heart failure) Current Visit: No Status: Chronic Assessment and plan: - Echocardiogram on 08/30/17 found LVEF 45% with global & segmental LV systolic dysfunction. Indeterminate diastolic dysfunction. - Continue Lasix. - Continue strict I/O and daily weight. Qualifiers: Congestive heart failure type: systolic Congestive heart failure chronicity : chronic Qualified Code(s): I50.22 - Chronic systolic (congestive) heart failure (7) Diabetes mellitus Current Visit: No Status: Chronic Assessment and plan: - Insulin sliding scale and glucose monitoring. Qualifiers: Diabetes mellitus type: type 2 Diabetes mellitus complication status: with kidney complications Diabetes mellitus complication detail: with chronic kidney disease Diabetes mellitus terminal gauger insulin use: without residential use Chronic kidney disease stage: on chronic dialysis Qualified Code(s): E11.22 - Type 2 diabetes mellitus with diabetic chronic kidney disease; N18.6 - End stage renal disease; N18.6 - End stage renal disease; N18.6 - End stage renal disease; N18.6 - End stage renal disease; Z99.2 - Dependence on renal dialysis; Z99.2 - Dependence on renal dialysis; Z99.2 - Dependence on renal dialysis; Z99.2 - Dependence on renal dialysis (8) HTN (hypertension) Current Visit: No Status: Chronic Assessment and plan: - BP within normal range. - Continue current antihypertensive regimen. Qualifiers: Hypertension type: essential hypertension Qualified Code(s): I10 - Essential (primary) hypertension - Subjective Interval history: Patient was noted to have respiratory distress overnight and vancomycin and Zosyn were started after repeated CXR suspicious for multifocal pneumonia. Patient was seen and examined this morning. Patient still has some shortness of breath but states it's better compared to last night. Patient reports cough continues to improve and denies palpitation, chest pain, diaphoresis, fever, chills. - Constitutional Vitals: Temp Pulse Resp BP Pulse Ox 97.6 F 83 22 136/87 99 09/02/17 07:30 09/02/17 07:30 09/02/17 08:05 09/02/17 07:30 09/02/17 08:05 General appearance: Present: cooperative, A&O X 3, pleasant, no acute distress, answers questions appropriately - Head Head exam: Present: atraumatic, normocephalic - Eye Eye exam: Present: EOMI, conjuntiva pink, sclera anicteric - ENT ENT exam: Present: mucous membranes dry - Neck Neck exam general surgery: Present: supple, trachea midline. Absent: lymphadenopathy - Respiratory Respiratory exam: Present: wheezes (Diffuse). Absent: accessory muscle use, rales, respiratory distress, rhonchi - Cardiovascular Cardiovascular exam: Present: irregular rhythm, +S1, +S2 - GI/Abdominal GI/Abdominal exam: Present: normal bowel sounds, soft, no peritoneal signs. Absent: distended, tenderness - Extremities Exam Extremities exam: Present: radial pulses palpable and symmetrical. Absent: cyanotic, pedal edema - Neurological Exam Neurological exam: Present: oriented X3, no focal deficits. Absent: facial droop, speech deficit - Skin Skin exam: Present: dry, intact, warm Internal Medicine: Result - Labs CBC & Chem 7: 09/02/17 02:37 09/02/17 04:45 Labs: Short CBC 09/02/17 Range/Units 02:37 WBC 11.3 H (4.3-11.1) K/mcL Hgb 8.5 L (12.9-16.9) g/dL Hct 29.7 L (37.5-50.1) % Plt Count 185 (140-400) K/mcL BMP 09/02/17 04:45 Sodium 132 L D Potassium 4.6 H Chloride 93 L Carbon Dioxide 25 BUN 89 H D Creatinine 4.63 H Glucose 297 H Calcium 8.6 - ABG Interpretation ABG results: ABG ABG pH 7.37 pH Units (7.32-7.45) 09/02/17 04:02 ABG pCO2 48 mmHg (35-45) H 09/02/17 04:02 ABG pO2 88 mmHg (85-104) 09/02/17 04:02 ABG O2 Saturation 96 % (95-98) 09/02/17 04:02 PT/INR, D-dimer PT 32.7 Seconds (9.4-12.1) H 09/02/17 02:37 - Impressions Impressions Chest X-Ray 09/01/17 15:11 IMPRESSION: Stable appearance of the chest. Opacity in the right upper lobe may represent an area of scarring. Interstitial markings may represent chronic lung changes. D/ / Lion Del Valle MD / Lion Del Valle MD Interpreting Provider: Lion Del Valle MD Chest X-Ray 09/02/17 01:30 EST IMPRESSION: No substantial change in appearance of the lungs. Scattered airspace opacities concerning for multifocal pneumonia. D/ / Vivian Humphrey MD / Vivian Humphrey MD Interpreting Provider: Vivian Humphrey MD Chest X-Ray 09/02/17 07:48 IMPRESSION: 1. Cardiomegaly with pulmonary vascular congestion. Bilateral thickened interlobular septa suspicious for interstitial pulmonary edema. However, this appears to be chronic on the right which may indicate chronic lymphatic obstruction or lymphangitic tumor. 2. Right perihilar treatment related changes D/ / Jason Lawson MD / Jason Lawson MD Interpreting Provider: Jason Lawson MD - VTE Documentation of Mechanical Device: Intermittent pneumatic compression device Consult Discharge Plan - Plan Instructions: Heart Failure (DC), Atrial Flutter (DC), Pacemaker (DC), Hemodialysis (DC), Hemodialysis (GEN), Diabetes Mellitus Type 2 in Adults (DC), Chronic Obstructive Pulmonary Disease (DC), Chronic Hypertension (DC), Anemia ( GEN), Cigarette Smoking and Your Health, Stem Dryer Maintainer (GEN) Referrals: Jeromy Wall MD [Primary Care Provider] - 09/07/17 2:00 pm <Nehemiah Doyle - Last Filed: 09/02/17 14:46> Date of Encounter: 09/02/17 - Assessment and plan (1) Acute and chronic respiratory failure ([id number]) Current Visit: Yes Status: Acute Qualifiers: Respiratory failure complication: hypoxia Qualified Code(s): J96.21 - Acute and chronic respiratory failure with hypoxia (2) COPD (chronic obstructive pulmonary disease) Current Visit: No Status: Chronic Qualifiers: COPD type: COPD with acute exacerbation Qualified Code(s): J44.1 - Chronic obstructive pulmonary disease with (acute) exacerbation (3) Atrial fibrillation Current Visit: Yes Status: Acute Qualifiers: Atrial fibrillation type: persistent Qualified Code(s): I48.1 - Persistent atrial fibrillation (4) Anemia in CKD (chronic kidney disease) Current Visit: No Status: Chronic Qualifiers: Chronic kidney disease stage: on chronic dialysis Qualified Code(s): N18.6 - End stage renal disease; D63.1 - Anemia in chronic kidney disease; D63.1 - Anemia in chronic kidney disease; Z99.2 - Dependence on renal dialysis; Z99.2 - Dependence on renal dialysis; Z99.2 - Dependence on renal dialysis; Z99.2 - Dependence on renal dialysis (5) CAD (coronary artery disease) Current Visit: No Status: Chronic Qualifiers: Coronary Disease-Associated Artery/Lesion type: bypass graft [place] vs. transplanted heart: [place] heart Associated angina: without angina Qualified Code(s): I25.810 - Atherosclerosis of coronary artery bypass graft(s) without angina pectoris (6) CHF (congestive heart failure) Current Visit: No Status: Chronic Qualifiers: Congestive heart failure type: systolic Congestive heart failure chronicity : chronic Qualified Code(s): I50.22 - Chronic systolic (congestive) heart failure (7) Diabetes mellitus Current Visit: No Status: Chronic Qualifiers: Diabetes mellitus type: type 2 Diabetes mellitus complication status: with kidney complications Diabetes mellitus complication detail: with chronic kidney disease Diabetes mellitus terminal gauger insulin use: without residential use Chronic kidney disease stage: on chronic dialysis Qualified Code(s): E11.22 - Type 2 diabetes mellitus with diabetic chronic kidney disease; N18.6 - End stage renal disease; N18.6 - End stage renal disease; N18.6 - End stage renal disease; N18.6 - End stage renal disease; Z99.2 - Dependence on renal dialysis; Z99.2 - Dependence on renal dialysis; Z99.2 - Dependence on renal dialysis; Z99.2 - Dependence on renal dialysis (8) HTN (hypertension) Current Visit: No Status: Chronic Qualifiers: Hypertension type: essential hypertension Qualified Code(s): I10 - Essential (primary) hypertension - Constitutional Vitals: Temp Pulse Resp BP Pulse Ox 97.5 F L 72 16 104/60 96 09/02/17 11:37 09/02/17 11:37 09/02/17 11:37 09/02/17 11:37 09/02/17 11:37 Internal Medicine: Result - Labs CBC & Chem 7: 09/02/17 02:37 09/02/17 04:45 Labs: Short CBC 09/02/17 Range/Units 02:37 WBC 11.3 H (4.3-11.1) K/mcL Hgb 8.5 L (12.9-16.9) g/dL Hct 29.7 L (37.5-50.1) % Plt Count 185 (140-400) K/mcL BMP 09/02/17 04:45 Sodium 132 L D Potassium 4.6 H Chloride 93 L Carbon Dioxide 25 BUN 89 H D Creatinine 4.63 H Glucose 297 H Calcium 8.6 - ABG Interpretation ABG results: ABG ABG pH 7.37 pH Units (7.32-7.45) 09/02/17 04:02 ABG pCO2 48 mmHg (35-45) H 09/02/17 04:02 ABG pO2 88 mmHg (85-104) 09/02/17 04:02 ABG O2 Saturation 96 % (95-98) 09/02/17 04:02 PT/INR, D-dimer PT 32.7 Seconds (9.4-12.1) H 09/02/17 02:37 - Impressions Impressions Chest X-Ray 09/01/17 15:11 IMPRESSION: Stable appearance of the chest. Opacity in the right upper lobe may represent an area of scarring. Interstitial markings may represent chronic lung changes. D/ / Lion Del Valle MD / Lion Del Valle MD Interpreting Provider: Lion Del Valle MD Chest X-Ray 09/02/17 01:30 EST IMPRESSION: No substantial change in appearance of the lungs. Scattered airspace opacities concerning for multifocal pneumonia. D/ / Vivian Humphrey MD / Vivian Humphrey MD Interpreting Provider: Vivian Humphrey MD Chest X-Ray 09/02/17 07:48 IMPRESSION: 1. Cardiomegaly with pulmonary vascular congestion. Bilateral thickened interlobular septa suspicious for interstitial pulmonary edema. However, this appears to be chronic on the right which may indicate chronic lymphatic obstruction or lymphangitic tumor. 2. Right perihilar treatment related changes D/ / Jason Lawson MD / Jason Lawson MD Interpreting Provider: Jason Lawson MD - Attending Attestation I examined this patient and my medical decision-making was reviewed with the Resident Physician on 09/02/17. I agree with the documented findings, disposition and treatment plan as described except to the extent set forth below. Mr Guardado is currently admitted for atrial fib, COPD and probable pneumonia. He remains moderate to high risk due to potential for worsening respiratory status. Mr Guardado has had more congestion and coughing. CXR has concern for pneumonia. Resp panel positive for rhinovirus. No fever or chills. No CP. Exam Alert. Comfortable at rest. Mucus membranes dry Heart irreg - distant Lungs with congestion Abd soft Edema present I/P 1. Probable pneumonia 2. ESRD 3. A fib Further diagnoses and plan as above.
[2017-09-02 09:58] LABS: Adenovirus Not Detected (Not Detect); Coronavirus 229E Not Detected (Not Detect); Coronavirus HKU1 Not Detected (Not Detect); Coronavirus NL63 Not Detected (Not Detect)
[2017-09-02 09:59] LABS: Bordetella Pertussis Not Detected (Not Detect); Chlamydophila pneumoniae Not Detected (Not Detect); Coronavirus OC43 Not Detected (Not Detect); Human Metapneumovirus Not Detected (Not Detect); Human Rhinovirus/Enterovirus ***DETECTED*** (Not Detect); Influenza A Subtype 2009 H1 Not Detected (Not Detect); Influenza A Untypeable Not Detected (Not Detect); Influenza B Not Detected (Not Detect); Mycoplasma pneumoniae Not Detected (Not Detect); Parainfluenza Virus 1 Not Detected (Not Detect); Parainfluenza Virus 2 Not Detected (Not Detect); Parainfluenza Virus 3 Not Detected (Not Detect); Parainfluenza Virus 4 Not Detected (Not Detect); Respiratory Syncytial Virus Not Detected (Not Detect)
--- NOTE | 2017-09-02 10:32 | Nephrology Progress Note ---
Date of Encounter: 09/02/17 Time of Encounter: 10:30 - Assessment and Plan (1) Atrial fibrillation Current Visit: Yes Status: Acute Afib/aflutter - per cardiology and primary team. Patient will need coumadin with therapeutic INR. INR 3.0 today. Rate is controlled. Qualifiers: Atrial fibrillation type: persistent Qualified Code(s): I48.1 - Persistent atrial fibrillation (2) ESRD (end stage renal disease) on dialysis Current Visit: Yes Status: Acute HD MWF Renal diet Renal dose medications. (3) Cardiomyopathy Current Visit: Yes Status: Chronic Per cardiology. Patient is euvolemic. Qualifiers: Cardiomyopathy type: unspecified Qualified Code(s): I42.9 - Cardiomyopathy , unspecified (4) Anemia Current Visit: No Status: Chronic Monitor hemoglobin. No active bleeding. Qualifiers: Anemia type: other cause Other causes of anemia: chronic disease, other Qualified Code(s): D63.8 - Anemia in other chronic diseases classified elsewhere (5) Pneumonia Current Visit: No Status: Acute The patient respiratory symptoms seem to be secondary to pneumonia. Agree with current management. He is feeling better today with scheduled and as needed dilators along with antibiotics. Qualifiers: Pneumonia type: due to unspecified organism Laterality: right Lung location: upper lobe of lung Qualified Code(s): J18.9 - Pneumonia, unspecified organism Subjective Principal diagnosis: ESRD Interval history: Patient seen. He is sitting in a chair. He feels less dyspneic today. He denies chest pain. His appetite is good.. Objective - Vital Signs Vital signs: Vital Signs Temp Pulse Resp BP Pulse Ox 09/02/17 08:05 22 99 09/02/17 07:30 97.6 F 83 16 136/87 97 09/02/17 05:00 98.2 F 86 20 131/83 98 09/02/17 01:11 EST 97.6 F 76 94 138/70 09/01/17 22:04 36 100 09/01/17 21:42 15 99 09/01/17 20:53 97.7 F 78 18 106/70 97 09/01/17 17:08 81 82 113/61 98 09/01/17 17:00 99 09/01/17 15:14 16 99 09/01/17 15:11 24 97/72 100 Intake and Output 09/02/17 09/02/17 09/02/17 00:59 07:59 15:59 Intake Total Output Total 300 / 300 Balance -300 / -300 Intake: Oral Output: Urine 300 / 300 Other: Meal Percent of Meal Consumed # Voids Weight 71.9 kg Blood Glucose* 274 Patient Weight 09/02/17 22:59 Weight 71.9 kg - General Appearance General appearance: Present: well-developed, well-nourished EENT: Present: ATNC Neck: Present: supple Respiratory: Present: course breath sounds, rhonchi Cardiology: Present: regular rate Integumentary: Present: warm and dry Neurologic: Present: alert and oriented x3 Musculoskeletal: Present: no cyanosis Psychiatric: Present: mood/affect appropriate - Lab 09/02/17 02:37 09/02/17 04:45 Most recent lab results ABG pH 7.37 pH Units (7.32-7.45) 09/02/17 04:02 ABG pCO2 48 mmHg (35-45) H 09/02/17 04:02 ABG pO2 88 mmHg (85-104) 09/02/17 04:02 ABG HCO3 28 mEq/L (21-27) H 09/02/17 04:02 ABG O2 Saturation 96 % (95-98) 09/02/17 04:02 Calcium 8.6 mg/dL (8.6-10.8) 09/02/17 04:45 Magnesium 2.2 mg/dL (1.6-2.6) 09/01/17 05:44 - VTE Documentation of Mechanical Device: Intermittent pneumatic compression device Consult Discharge Plan - Plan Instructions: Heart Failure (DC), Atrial Flutter (DC), Pacemaker (DC), Hemodialysis (DC), Hemodialysis (GEN), Diabetes Mellitus Type 2 in Adults (DC), Chronic Obstructive Pulmonary Disease (DC), Chronic Hypertension (DC), Anemia ( GEN), Cigarette Smoking and Your Health, Director Career Services (GEN) Referrals: Jeromy Wall MD [Primary Care Provider] - 09/07/17 2:00 pm
[2017-09-02] MEDS: Ondansetron ODT 4 MG TAB.RAPDIS SL PRN (13:29)
[2017-09-02] MEDS: Magic Mouthwash 10 ML UD Cup PO SCH ×2 (15:47→18:36)
[2017-09-02] MEDS: Azithromycin 250 MG in D5% in Water 250 ML IVPB SCH (22:14)
[2017-09-03] MEDS: MethylPREDNISolone 40 MG/ML VIAL IVP SCH ×3 (01:11→20:06)
[2017-09-03] MEDS: Ipratropium/Albuterol Neb 3 ML IH SCH ×7 (03:30→23:11)
[2017-09-03] MEDS: *HR* OxyCODONE Immed Rel 15 MG TABLET PO PRN ×3 (04:28→20:57)
[2017-09-03 05:05] LABS: Hematocrit 33.7 % (37.5-50.1); Hemoglobin 9.9 g/dL (12.9-16.9); Mean Corpuscular HGB Conc 29.4 g/dL (31.6-35.5); Mean Corpuscular Hemoglobin 27.7 pg (28.0-33.3); Mean Corpuscular Volume 94.4 fL (83.0-100.0); Mean Platelet Volume 11.3 fL (9.4-12.4); Platelet Count 193 K/mcL (140-400); Red Blood Count 3.57 M/mcL (4.19-5.50); Red Cell Distribution Width 18.2 % (11.5-14.5)
[2017-09-03 05:08] LABS: INR 3.6; Prothrombin Time 40.3 Seconds (9.4-12.1)
[2017-09-03 05:19] LABS: Calcium 8.8 mg/dL (8.6-10.8)
[2017-09-03 05:25] LABS: Potassium 5.3 mEq/L (3.5-4.5)
[2017-09-03] MEDS: Magic Mouthwash 10 ML UD Cup PO SCH ×3 (06:31→20:06)
[2017-09-03] MEDS: Budesonide/Formoterol 160/4.5 MDI IH SCH ×2 (08:39→20:29)
[2017-09-03] MEDS ORDERED: Aminoglycoside Consult 1 EACH MC ONE (08:39)
--- NOTE | 2017-09-03 08:39 | Internal Med Progress Note ---
<Gerber Louis - Last Filed: 09/03/17 10:06> Date of Encounter: 09/03/17 Time of Encounter: 08:39 - Assessment and plan (1) Acute and chronic respiratory failure ([id number]) Current Visit: Yes Status: Acute Assessment and plan: Patient with desaturation on room air prior to admission. Was on 2.5 L home O2 at baseline Episodes of acute respiratory distress ABG showed mildly elevated pCO2 but normal pH and pO2. Blood culture show no growth to date Currently stable with O2 sat 100% or higher on 4.5L NC. Wean down O2 to baseline 2.5L O2 requirement CXRs were reviewed personally. Feel it's more likely secondary to COPD exacerbation and viral respiratory infection (positive rhinovirus PCR on respiratory infection panel) rather than multifocal bacterial pneumonia Continue bronchodilators, Symbicort and supplemental oxygen. Decrease frequency of Solu-Medrol 40 mg IV to q12H for now and switch to Prednisone tomorrow. Discontinue Vancomycin and Zosyn Qualifiers: Respiratory failure complication: hypoxia Qualified Code(s): J96.21 - Acute and chronic respiratory failure with hypoxia (2) Acute exacerbation of chronic obstructive airways disease Current Visit: Yes Status: Acute Assessment and plan: Continue bronchodilators, Symbicort, and supplemental oxygen. Completed 5 day course of Azithromycin IV (3) Atrial flutter Current Visit: Yes Status: Acute Assessment and plan: A-fib/flutter, currently rate-controlled Continue Coreg and Cardizem. CHADS-VASc Score 4. Per patient, anticoagulation was stopped due to chemo induced hemoptysis Cardiology recommends bridging to Coumadin therapy. Not an ideal candidate for NOAC due to end-stage renal disease and valvular disease. Case was discussed with patient's embedded engineer Dr. Calero on 08/30/17 who agreed with starting anticoagulation at this time as long as he is not bleeding. INR 3.6 today (patient recently given antibiotics). Continue Coumadin dosing per pharmacy. Will recheck PT/INR tomorrow. Case was discussed with brush machine setter Dr. Gallagher. The goal is to make an arrangement so that patient can have his INR levels checked during dialysis. Patient will need outpatient follow-up with cardiology Dr. Esteban. Qualifiers: Atrial flutter type: typical Qualified Code(s): I48.3 - Typical atrial flutter (4) ESRD (end stage renal disease) on dialysis Current Visit: Yes Status: Acute Assessment and plan: Known ESRD, s/p left nephrectomy On HD MWF, Continue HD as scheduled The goal is to make an arrangement so that patient can have his INR levels checked during dialysis Avoid nephrotoxins Nephrology following. (5) Elevated troponin Current Visit: Yes Status: Chronic Assessment and plan: Serial troponin 0.12 --> 0.26 --> 0.25 Chronic troponemia in the setting of A-fib RVR, ESRD, CAD. This likely represents demand ischemia. Treatment with rate control Discontinued Heparin drip once coumadin therapeutic Cardiology signed off (6) History of lung cancer Current Visit: No Status: Chronic Assessment and plan: History of squamous cell carcinomas, Follows with [facility]. Patient reports has finished chemo and radiation. He underwent last chemoradiation April 2017 Bronchoscopy 05/21/17 revealed extensive mucoid secretions throughout the tracheobronchial tree worse in the right upper lobe. There were no other obstructing lesions Continue to monitor (7) Diabetes mellitus, type 2 Current Visit: No Status: Chronic Assessment and plan: HGB a1c 4.8 on 05/19/17 Continue accuchecks and SSI Qualifiers: Diabetes mellitus complication status: with unspecified complications Diabetes mellitus prison insulin use: without prison use Qualified Code( s): E11.8 - Type 2 diabetes mellitus with unspecified complications (8) CAD (coronary artery disease) Current Visit: No Status: Chronic Assessment and plan: Continue current management Qualifiers: Coronary Disease-Associated Artery/Lesion type: bypass graft [place] vs. transplanted heart: [place] heart Associated angina: without angina Qualified Code(s): I25.810 - Atherosclerosis of coronary artery bypass graft(s) without angina pectoris (9) HTN (hypertension) Current Visit: No Status: Chronic Assessment and plan: BP within normal range. Continue current antihypertensive regimen. Qualifiers: Hypertension type: essential hypertension Qualified Code(s): I10 - Essential (primary) hypertension (10) HLD (hyperlipidemia) Current Visit: No Status: Chronic Assessment and plan: Continue statin Qualifiers: Hyperlipidemia type: mixed hyperlipidemia Qualified Code(s): E78.2 - Mixed hyperlipidemia (11) GERD (gastroesophageal reflux disease) Current Visit: No Status: Chronic Assessment and plan: Continue to monitor Qualifiers: Esophagitis presence: without esophagitis Qualified Code(s): K21.9 - Gastro -esophageal reflux disease without esophagitis (12) DVT prophylaxis Current Visit: No Status: Acute Assessment and plan: Now off Heparin ggt, bridged to Coumadin The goal is to make an arrangement so that patient can have his INR levels checked during dialysis - Subjective Interval history: Patient seen and examined. He reports SOB this AM upon awaking which imprived after bronchodilators. Patient denies fever, chills, CP, SOB, abd pain, N/V/D, bleeding, hemoptysis, melena, or leg edema. His SpO2 is 100% today at 4.5L O2 via NC. - Constitutional Vitals: Temp Pulse Resp BP Pulse Ox 98.2 F 113 18 136/78 98 09/03/17 07:00 09/03/17 07:00 09/03/17 07:00 09/03/17 07:00 09/03/17 07:00 General appearance: Present: cooperative, A&O X 3, pleasant, no acute distress, answers questions appropriately - Head Head exam: Present: atraumatic, normal inspection, normocephalic - Eye Eye exam: Present: EOMI, PERRL, conjuntiva pink, sclera anicteric - ENT ENT exam: Present: mucous membranes moist, normal oropharynx - Neck Neck exam general surgery: Present: supple, trachea midline. Absent: tenderness , thyromegaly - Respiratory Respiratory exam: Present: CTAB. Absent: accessory muscle use, decreased breath sounds, rales, respiratory distress, rhonchi - Cardiovascular Cardiovascular exam: Present: irregular rhythm, +S1, +S2 - GI/Abdominal GI/Abdominal exam: Present: normal bowel sounds, soft. Absent: distended, guarding - Extremities Exam Extremities exam: Present: full ROM, normal inspection, warm - Back Exam Back exam: Present: normal inspection. Absent: paraspinal tenderness, tenderness - Neurological Exam Neurological exam: Present: alert, oriented X3, no focal deficits. Absent: speech deficit - Psychiatric Psychiatric exam: Present: normal affect, normal mood - Skin Skin exam: Present: dry, normal color, warm Internal Medicine: Result - Labs CBC & Chem 7: 09/03/17 04:23 09/03/17 04:23 Labs: Short CBC 09/03/17 Range/Units 04:23 WBC 7.8 (4.3-11.1) K/mcL Hgb 9.9 L (12.9-16.9) g/dL Hct 33.7 L (37.5-50.1) % Plt Count 193 (140-400) K/mcL BMP 09/03/17 04:23 Sodium 132 L Potassium 5.3 H Chloride 95 L Carbon Dioxide 22 BUN 112 H D Creatinine 4.91 H Glucose 258 H Calcium 8.8 - ABG Interpretation ABG results: ABG ABG pH 7.37 pH Units (7.32-7.45) 09/02/17 04:02 ABG pCO2 48 mmHg (35-45) H 09/02/17 04:02 ABG pO2 88 mmHg (85-104) 09/02/17 04:02 ABG O2 Saturation 96 % (95-98) 09/02/17 04:02 PT/INR, D-dimer PT 40.3 Seconds (9.4-12.1) H 09/03/17 04:23 - Pulse Oximetry Interpretation Digit-Finger Pulse Oximetry Readin (on 4.5L O2 via NC) Actions taken: other (decreased O2 flow to 2.5L) - Impressions Impressions Chest X-Ray 09/02/17 07:48 IMPRESSION: 1. Cardiomegaly with pulmonary vascular congestion. Bilateral thickened interlobular septa suspicious for interstitial pulmonary edema. However, this appears to be chronic on the right which may indicate chronic lymphatic obstruction or lymphangitic tumor. 2. Right perihilar treatment related changes D/ / Jason Lawson MD / Jason Lawson MD Interpreting Provider: Jason Lawson MD - VTE Documentation of Mechanical Device: Intermittent pneumatic compression device Consult Discharge Plan - Plan Instructions: Heart Failure (DC), Atrial Flutter (DC), Pacemaker (DC), Hemodialysis (DC), Hemodialysis (GEN), Diabetes Mellitus Type 2 in Adults (DC), Chronic Obstructive Pulmonary Disease (DC), Chronic Hypertension (DC), Anemia ( GEN), Cigarette Smoking and Your Health, Internal Audit Consultant (GEN) Referrals: Jeromy Wall MD [Primary Care Provider] - 09/07/17 2:00 pm <Nehemiah Doyle Last Filed: 09/03/17 15:54> Date of Encounter: 09/03/17 - Assessment and plan (1) Acute and chronic respiratory failure ([id number]) Current Visit: Yes Status: Acute Qualifiers: Respiratory failure complication: hypoxia Qualified Code(s): J96.21 - Acute and chronic respiratory failure with hypoxia (2) COPD (chronic obstructive pulmonary disease) Current Visit: No Status: Chronic Qualifiers: COPD type: COPD with acute exacerbation Qualified Code(s): J44.1 - Chronic obstructive pulmonary disease with (acute) exacerbation (3) Acute bronchitis due to Rhinovirus Current Visit: Yes Status: Acute (4) Atrial fibrillation Current Visit: Yes Status: Acute Qualifiers: Atrial fibrillation type: persistent Qualified Code(s): I48.1 - Persistent atrial fibrillation (5) Anemia in CKD (chronic kidney disease) Current Visit: No Status: Chronic Qualifiers: Chronic kidney disease stage: on chronic dialysis Qualified Code(s): N18.6 - End stage renal disease; D63.1 - Anemia in chronic kidney disease; D63.1 - Anemia in chronic kidney disease; Z99.2 - Dependence on renal dialysis; Z99.2 - Dependence on renal dialysis; Z99.2 - Dependence on renal dialysis; Z99.2 - Dependence on renal dialysis (6) CAD (coronary artery disease) Current Visit: No Status: Chronic Qualifiers: Coronary Disease-Associated Artery/Lesion type: bypass graft [place] vs. transplanted heart: [place] heart Associated angina: without angina Qualified Code(s): I25.810 - Atherosclerosis of coronary artery bypass graft(s) without angina pectoris (7) CHF (congestive heart failure) Current Visit: No Status: Chronic Qualifiers: Congestive heart failure type: systolic Congestive heart failure chronicity : chronic Qualified Code(s): I50.22 - Chronic systolic (congestive) heart failure (8) Diabetes mellitus Current Visit: No Status: Chronic Qualifiers: Diabetes mellitus type: type 2 Diabetes mellitus complication status: with kidney complications Diabetes mellitus complication detail: with chronic kidney disease Diabetes mellitus rodent exterminator insulin use: without prison use Chronic kidney disease stage: on chronic dialysis Qualified Code(s): E11.22 - Type 2 diabetes mellitus with diabetic chronic kidney disease; N18.6 - End stage renal disease; N18.6 - End stage renal disease; N18.6 - End stage renal disease; N18.6 - End stage renal disease; Z99.2 - Dependence on renal dialysis; Z99.2 - Dependence on renal dialysis; Z99.2 - Dependence on renal dialysis; Z99.2 - Dependence on renal dialysis (9) HTN (hypertension) Current Visit: No Status: Chronic Qualifiers: Hypertension type: essential hypertension Qualified Code(s): I10 - Essential (primary) hypertension - Constitutional Vitals: Temp Pulse Resp BP Pulse Ox 98.2 F 88 18 129/99 98 09/03/17 07:00 09/03/17 15:00 09/03/17 15:00 09/03/17 15:00 09/03/17 15:00 Internal Medicine: Result - Labs CBC & Chem 7: 09/03/17 04:23 09/03/17 04:23 Labs: Short CBC 09/03/17 Range/Units 04:23 WBC 7.8 (4.3-11.1) K/mcL Hgb 9.9 L (12.9-16.9) g/dL Hct 33.7 L (37.5-50.1) % Plt Count 193 (140-400) K/mcL BMP 09/03/17 04:23 Sodium 132 L Potassium 5.3 H Chloride 95 L Carbon Dioxide 22 BUN 112 H D Creatinine 4.91 H Glucose 258 H Calcium 8.8 - ABG Interpretation ABG results: ABG ABG pH 7.37 pH Units (7.32-7.45) 09/02/17 04:02 ABG pCO2 48 mmHg (35-45) H 09/02/17 04:02 ABG pO2 88 mmHg (85-104) 09/02/17 04:02 ABG O2 Saturation 96 % (95-98) 09/02/17 04:02 PT/INR, D-dimer PT 40.3 Seconds (9.4-12.1) H 09/03/17 04:23 - Attending Attestation I examined this patient and my medical decision-making was reviewed with the Resident Physician on 09/03/17. I agree with the documented findings, disposition and treatment plan as described except to the extent set forth below. Mr Guardado is currently admitted for acute hypoxic resp failure from COPD and CHF. He remains moderate to high risk due to potential for worsening respiratory status. Mr Guardado feels OK this AM. His breathing is somewhat better. No fever or chills. Less cough. To have dialysis today. Exam Alert. Comfortable Heart reg Less rhonchi today Abd soft I/P 1. Hypoxia 2. Viral bronchitis/pneumonia 3. COPD Further diagnoses and plan as above.
[2017-09-03] MEDS: Insulin LISPRO 300 UNITS/3 ML VIAL SQ SCH ×4 (09:12→20:10)
[2017-09-03] MEDS: Famotidine 20 MG TABLET PO SCH ×2 (09:14→20:05)
[2017-09-03] MEDS: Chloraseptic Spray 177 ML BOTTLE MM SCH ×4 (09:15→20:11)
[2017-09-03] MEDS: Calcium Acetate 667 MG CAPSULE PO SCH ×3 (09:15→20:05)
[2017-09-03] MEDS: *HR* Glimepiride 4 MG TABLET PO SCH (09:15)
[2017-09-03] MEDS: Gabapentin 100 MG CAPSULE PO SCH ×3 (09:16→20:05)
[2017-09-03] MEDS ORDERED: Piperacillin/Tazobactam 3.375 GM in D5% in Water 50 ML IVPB SCH (10:00)
[2017-09-03] MEDS ORDERED: 0.9 % Sodium Chloride 250 ML IVC PRN (10:10)
[2017-09-03] MEDS ORDERED: 0.9 % Sodium Chloride 1,000 ML PRIME SCH (10:15)
--- NOTE | 2017-09-03 12:17 | Nephrology Progress Note ---
Date of Encounter: 09/03/17 Time of Encounter: 12:15 - Assessment and Plan (1) ESRD (end stage renal disease) on dialysis Current Visit: Yes Status: Acute (2) Hyperkalemia Current Visit: No Status: Acute Subjective Principal diagnosis: ESRD Interval history: Interim noted, pt seen and examined Objective - Vital Signs Vital signs: Vital Signs Temp Pulse Resp BP Pulse Ox 09/03/17 11:12 16 99 09/03/17 10:58 69 149/74 09/03/17 08:40 16 93 09/03/17 07:00 98.2 F 113 18 136/78 98 09/03/17 05:00 98 F 81 20 149/94 96 09/03/17 03:30 14 100 09/03/17 00:00 15 100 09/02/17 19:44 14 100 09/02/17 19:00 98.4 F 75 20 143/78 100 09/02/17 15:56 100 09/02/17 15:22 97.9 F 72 16 127/73 100 09/02/17 15:01 20 95 Intake and Output 09/02/17 09/03/17 09/03/17 23:59 07:59 15:59 Intake Total 240 / 240 120 / 120 240 / 240 Balance 240 / 240 120 / 120 240 / 240 Intake: Oral 240 / 240 120 / 120 240 / 240 Other: Meal Breakfast Percent of Meal Consumed 100% # Voids 1 1 Weight 72.3 kg Blood Glucose* 274 277 191 Patient Weight 09/03/17 23:59 Weight 72.3 kg - Lab 09/03/17 04:23 09/03/17 04:23 Most recent lab results ABG pH 7.37 pH Units (7.32-7.45) 09/02/17 04:02 ABG pCO2 48 mmHg (35-45) H 09/02/17 04:02 ABG pO2 88 mmHg (85-104) 09/02/17 04:02 ABG HCO3 28 mEq/L (21-27) H 09/02/17 04:02 ABG O2 Saturation 96 % (95-98) 09/02/17 04:02 Calcium 8.8 mg/dL (8.6-10.8) 09/03/17 04:23 Magnesium 2.2 mg/dL (1.6-2.6) 09/01/17 05:44 - VTE Documentation of Mechanical Device: Intermittent pneumatic compression device Consult Discharge Plan - Plan Instructions: Heart Failure (DC), Atrial Flutter (DC), Pacemaker (DC), Hemodialysis (DC), Hemodialysis (GEN), Diabetes Mellitus Type 2 in Adults (DC), Chronic Obstructive Pulmonary Disease (DC), Chronic Hypertension (DC), Anemia ( GEN), Cigarette Smoking and Your Health, Fish And Wildlife Biologist (GEN) Referrals: Jeromy Wall MD [Primary Care Provider] - 09/07/17 2:00 pm
[2017-09-03] MEDS: Ondansetron ODT 4 MG TAB.RAPDIS SL PRN (15:07)
[2017-09-03] MEDS: Diltiazem CD (24hr) 120 MG CAPSULE PO SCH (20:05)
[2017-09-03] MEDS: Furosemide 40 MG TABLET PO SCH (20:05)
[2017-09-04] MEDS: Ipratropium/Albuterol Neb 3 ML IH SCH ×6 (03:49→23:34)
[2017-09-04] MEDS: *HR* OxyCODONE Immed Rel 15 MG TABLET PO PRN ×3 (04:21→20:30)
[2017-09-04 05:58] LABS: Hematocrit 33.6 % (37.5-50.1); Hemoglobin 10.1 g/dL (12.9-16.9); Mean Corpuscular HGB Conc 30.1 g/dL (31.6-35.5); Mean Corpuscular Hemoglobin 28.1 pg (28.0-33.3); Mean Corpuscular Volume 93.6 fL (83.0-100.0); Mean Platelet Volume 10.9 fL (9.4-12.4); Platelet Count 190 K/mcL (140-400); Red Blood Count 3.59 M/mcL (4.19-5.50); Red Cell Distribution Width 18.1 % (11.5-14.5)
[2017-09-04 06:18] LABS: Calcium 8.3 mg/dL (8.6-10.8); INR 2.5; Potassium 4.6 mEq/L (3.5-4.5)
[2017-09-04] MEDS: Budesonide/Formoterol 160/4.5 MDI IH SCH ×2 (07:32→20:02)
[2017-09-04] MEDS: Furosemide 40 MG TABLET PO SCH (09:26)
[2017-09-04] MEDS: Gabapentin 100 MG CAPSULE PO SCH ×3 (09:26→20:31)
[2017-09-04] MEDS: Famotidine 20 MG TABLET PO SCH ×2 (09:26→17:26)
[2017-09-04] MEDS: MethylPREDNISolone 40 MG/ML VIAL IVP SCH ×2 (09:27→20:31)
[2017-09-04] MEDS: Chloraseptic Spray 177 ML BOTTLE MM SCH ×4 (09:27→20:31)
[2017-09-04] MEDS: Calcium Acetate 667 MG CAPSULE PO SCH ×3 (09:27→17:31)
[2017-09-04] MEDS: Magic Mouthwash 10 ML UD Cup PO SCH ×3 (09:27→17:27)
[2017-09-04] MEDS: Diltiazem CD (24hr) 120 MG CAPSULE PO SCH (09:27)
[2017-09-04] MEDS: Insulin LISPRO 300 UNITS/3 ML VIAL SQ SCH ×4 (09:27→20:31)
[2017-09-04] MEDS: *HR* Glimepiride 4 MG TABLET PO SCH (09:27)
--- NOTE | 2017-09-04 13:30 | Internal Med Progress Note ---
<Gerber Louis - Last Filed: 09/04/17 14:43> Date of Encounter: 09/04/17 Time of Encounter: 08:15 - Assessment and plan (1) Acute and chronic respiratory failure ([id number]) Current Visit: Yes Status: Acute Assessment and plan: Patient with desaturation on room air prior to admission. Was on 2.5 L home O2 at baseline Episodes of acute respiratory distress daily in AM ABG showed mildly elevated pCO2 but normal pH and pO2. Blood culture show no growth to date Currently stable with O2 sat 100% or higher on 4.5L NC. Wean down O2 to baseline 2.5L O2 requirement CXRs were reviewed personally. Feel it's more likely secondary to COPD exacerbation and viral respiratory infection (positive rhinovirus PCR on respiratory infection panel) rather than multifocal bacterial pneumonia Patient commpleted 5 days of Azithromycin Discontinued Vancomycin and Zosyn Continue bronchodilators, Symbicort and supplemental oxygen. Stop Solu-Medrol and switch to Prednisone taper. Started Mucinex and Mucomyst Pulmonology following Qualifiers: Respiratory failure complication: hypoxia Qualified Code(s): J96.21 - Acute and chronic respiratory failure with hypoxia (2) Acute exacerbation of chronic obstructive airways disease Current Visit: Yes Status: Acute Assessment and plan: Continue bronchodilators, Symbicort, and supplemental oxygen. Completed 5 day course of Azithromycin IV Prednisone 40 mg tapered over 2-3 weeks Started Mucinex and Mucomyst Pulmonary following Follow up with Pulm/ Dr. Gautam within 4 weeks after discharge (3) History of lung cancer Current Visit: No Status: Chronic Assessment and plan: History of squamous cell carcinomas, Follows with [facility]. Patient reports has finished chemo and radiation. He underwent last chemoradiation April 2017 Bronchoscopy 05/21/17 revealed extensive mucoid secretions throughout the tracheobronchial tree worse in the right upper lobe. There were no other obstructing lesions Continue to monitor with CT imaging surveillance as per oncologic protocol (4) Atrial flutter Current Visit: Yes Status: Acute Assessment and plan: A-fib/flutter, currently rate-controlled Continue Coreg and Cardizem. CHADS-VASc Score 4. Per patient, anticoagulation was stopped due to chemo induced hemoptysis Cardiology recommends bridging to Coumadin therapy. Not an ideal candidate for NOAC due to end-stage renal disease and valvular disease. Case was discussed with patient's oil spreader operator Dr. Calero on 08/30/17 who agreed with starting anticoagulation at this time as long as he is not bleeding. INR 2.5 today (patient recently given antibiotics). Continue Coumadin dosing per pharmacy. Will recheck PT/INR tomorrow. Case was discussed with lumber sticker Dr. Gallagher. The goal is to make an arrangement so that patient can have his INR levels checked during dialysis. Patient will need outpatient follow-up with cardiology Dr. Esteban. Qualifiers: Atrial flutter type: typical Qualified Code(s): I48.3 - Typical atrial flutter (5) ESRD (end stage renal disease) on dialysis Current Visit: Yes Status: Acute Assessment and plan: Known ESRD, s/p left nephrectomy On HD MWF, Continue HD as scheduled The goal is to make an arrangement so that patient can have his INR levels checked during dialysis Avoid nephrotoxins Nephrology following. (6) Elevated troponin Current Visit: Yes Status: Chronic Assessment and plan: Serial troponin 0.12 --> 0.26 --> 0.25 Chronic troponemia in the setting of A-fib RVR, ESRD, CAD. This likely represents demand ischemia. Treatment with rate control Discontinued Heparin drip once coumadin therapeutic Cardiology signed off (7) Diabetes mellitus, type 2 Current Visit: No Status: Chronic Assessment and plan: HGB a1c 4.8 on 05/19/17 Continue accuchecks and SSI Qualifiers: Diabetes mellitus complication status: with unspecified complications Diabetes mellitus watermelon harvesting supervisor insulin use: without detention use Qualified Code( s): E11.8 - Type 2 diabetes mellitus with unspecified complications (8) CAD (coronary artery disease) Current Visit: No Status: Chronic Assessment and plan: Continue current management Qualifiers: Coronary Disease-Associated Artery/Lesion type: bypass graft [place] vs. transplanted heart: [place] heart Associated angina: without angina Qualified Code(s): I25.810 - Atherosclerosis of coronary artery bypass graft(s) without angina pectoris (9) HTN (hypertension) Current Visit: No Status: Chronic Assessment and plan: BP within normal range. Continue current antihypertensive regimen. Qualifiers: Hypertension type: essential hypertension Qualified Code(s): I10 - Essential (primary) hypertension (10) HLD (hyperlipidemia) Current Visit: No Status: Chronic Assessment and plan: Continue statin Qualifiers: Hyperlipidemia type: mixed hyperlipidemia Qualified Code(s): E78.2 - Mixed hyperlipidemia (11) GERD (gastroesophageal reflux disease) Current Visit: No Status: Chronic Assessment and plan: Continue to monitor Qualifiers: Esophagitis presence: without esophagitis Qualified Code(s): K21.9 - Gastro -esophageal reflux disease without esophagitis (12) DVT prophylaxis Current Visit: No Status: Acute Assessment and plan: Now off Heparin ggt, bridged to Coumadin The goal is to make an arrangement so that patient can have his INR levels checked during dialysis - Subjective Interval history: Patient seen and examined. He reports recurrent SOB this AM upon awaking which improved after bronchodilators. Patient denies fever, chills, CP, SOB, abd pain , N/V/D, bleeding, hemoptysis, melena, or leg edema. His SpO2 is 98% today at 3L O2 via NC. - Constitutional Vitals: Temp Pulse Resp BP Pulse Ox 97.7 F 94 20 137/83 98 09/04/17 07:00 09/04/17 07:00 09/04/17 12:02 09/04/17 07:00 09/04/17 12:02 General appearance: Present: cooperative, A&O X 3, pleasant, no acute distress, answers questions appropriately - Head Head exam: Present: atraumatic, normal inspection, normocephalic - Eye Eye exam: Present: EOMI, conjuntiva pink, sclera anicteric - ENT ENT exam: Present: mucous membranes moist, normal oropharynx - Neck Neck exam general surgery: Present: normal inspection, supple, trachea midline. Absent: thyromegaly - Respiratory Respiratory exam: Present: rales (bibasilar), rhonchi. Absent: accessory muscle use, respiratory distress - Cardiovascular Cardiovascular exam: Present: RRR, +S1, +S2 - GI/Abdominal GI/Abdominal exam: Present: soft. Absent: distended, guarding, tenderness - Extremities Exam Extremities exam: Present: normal inspection, warm. Absent: pedal edema - Back Exam Back exam: Present: normal inspection. Absent: paraspinal tenderness, tenderness - Neurological Exam Neurological exam: Present: alert, oriented X3, no focal deficits. Absent: facial droop, speech deficit - Psychiatric Psychiatric exam: Present: normal affect, normal mood - Skin Skin exam: Present: dry, normal color, warm Internal Medicine: Result - Labs CBC & Chem 7: 09/04/17 05:16 09/04/17 05:16 Labs: Short CBC 09/04/17 Range/Units 05:16 WBC 8.8 (4.3-11.1) K/mcL Hgb 10.1 L (12.9-16.9) g/dL Hct 33.6 L (37.5-50.1) % Plt Count 190 (140-400) K/mcL BMP 09/04/17 05:16 Sodium 132 L Potassium 4.6 H Chloride 92 L Carbon Dioxide 29 BUN 56 H D Creatinine 3.16 H Glucose 181 H Calcium 8.3 L - ABG Interpretation ABG results: ABG ABG pH 7.37 pH Units (7.32-7.45) 09/02/17 04:02 ABG pCO2 48 mmHg (35-45) H 09/02/17 04:02 ABG pO2 88 mmHg (85-104) 09/02/17 04:02 ABG O2 Saturation 96 % (95-98) 09/02/17 04:02 PT/INR, D-dimer PT 28.0 Seconds (9.4-12.1) H 09/04/17 05:16 - Pulse Oximetry Interpretation Digit-Finger Pulse Oximetry Readin (on 3L O2 via NC) - VTE Documentation of Mechanical Device: Intermittent pneumatic compression device Consult Discharge Plan - Plan Instructions: Heart Failure (DC), Atrial Flutter (DC), Pacemaker (DC), Hemodialysis (DC), Hemodialysis (GEN), Diabetes Mellitus Type 2 in Adults (DC), Chronic Obstructive Pulmonary Disease (DC), Chronic Hypertension (DC), Anemia ( GEN), Cigarette Smoking and Your Health, Turnaround Engineer (GEN) Referrals: Jeromy Wall MD [Primary Care Provider] - 09/07/17 2:00 pm <Paradise Lyons - Last Filed: 09/04/17 16:49> Date of Encounter: 09/04/17 - Constitutional Vitals: Temp Pulse Resp BP Pulse Ox 98 F 75 17 124/75 96 09/04/17 16:00 09/04/17 16:00 09/04/17 16:00 09/04/17 16:00 09/04/17 16:00 Internal Medicine: Result - Labs CBC & Chem 7: 09/04/17 05:16 09/04/17 05:16 Labs: Short CBC 09/04/17 Range/Units 05:16 WBC 8.8 (4.3-11.1) K/mcL Hgb 10.1 L (12.9-16.9) g/dL Hct 33.6 L (37.5-50.1) % Plt Count 190 (140-400) K/mcL BMP 09/04/17 05:16 Sodium 132 L Potassium 4.6 H Chloride 92 L Carbon Dioxide 29 BUN 56 H D Creatinine 3.16 H Glucose 181 H Calcium 8.3 L - ABG Interpretation ABG results: ABG ABG pH 7.37 pH Units (7.32-7.45) 09/02/17 04:02 ABG pCO2 48 mmHg (35-45) H 09/02/17 04:02 ABG pO2 88 mmHg (85-104) 09/02/17 04:02 ABG O2 Saturation 96 % (95-98) 09/02/17 04:02 PT/INR, D-dimer PT 28.0 Seconds (9.4-12.1) H 09/04/17 05:16 - Attending Attestation I have seen and examined the patient independently. I have discussed with resident physician Dr Louis regarding the management plan. Agree with the documentation. Patient has slow improvement of his shortness of breath. Pulmonology consult appreciated. Recommendation will be followed. Continue steroid and bronchodilator. Continue Coumadin for A. fib. Continue symptomatic and supportive treatment.
--- NOTE | 2017-09-04 13:37 | Pulmonology Consult Note ---
Date of Encounter: 09/04/17 Time of Encounter: 13:30 Assessment and Plan (1) Acute and chronic respiratory failure ([id number]) Current Visit: Yes Status: Acute Impression This is a very pleasant 61-year-old woman presented with shortness of breath related supraventricular tachyarrhythmia likely precipitating heart failure in the context of severe mitral regurgitation with underlying advanced COPD lung cancer and end-stage renal disease. Although the patient's oxygen saturation are back to his baseline. He remains dyspneic which is clearly multifactorial related all the features listed above in addition to acute exacerbation of COPD likely secondary to rhinovirus. He is now anticoagulated for atrial fibrillation. Symptomatically improvement with ongoing treatment for underlying obstructive airways disease continued aggressive volume removal with dialysis and rate control is anticipated. It is possible that some of dyspnea is related to progressive lung cancer however I feel that acutely we have enough antecedents to would not necessarily implicate an alternative diagnosis that little can be done about at least in the short-term (such as lymphangitic spread of his cancer ). Recs: -Continue to wean FiO2 to keep saturation greater than 80% to around 92%. Incentive spirometry out of the chair ambulation as tolerated with monitoring and supple oxygen to this and a PT/OT consult would be useful if not already done -For COPD exacerbation and recommend a continuation of prednisone 40 mg this can be tapered over 2-3 weeks continuation of bronchodilators including scheduled duo nebs every 6 hours with albuterol treatments every hour needed. Continuation of home Symbicort outpatient pulmonary follow-up and to 4 weeks of his time of discharge he follows with Dr. Gautam -I recommend a five-day course of azithromycin to help with airway inflammation 500 mg first day followed by 250 mg thereafter to complete a 5 day course. If QTC prolongation is an issue than this could be substituted with doxycycline 100mg BID x 5 days. -Start guaifenesin 600 mg twice a day -Start N-acetylcysteine 600 mg twice a day (oral) -Continued volume removal for dialysis I will do further rate control and further evaluation for mitral regurgitation of the cardiology service -We will need to monitor for hemoptysis with restarting anticoagulation -Consider low-dose long-acting narcotic for symptomatic management of dyspnea and possible palliative care consult as long-term prognosis given multiple medical comorbidities and they are advanced state and advanced lung cancer portends a poor prognosis -Continued CT imaging surveillance as per oncologic protocol thank you for the consult we will continue to follow Qualifiers: Respiratory failure complication: hypoxia Qualified Code(s): J96.21 - Acute and chronic respiratory failure with hypoxia (2) Acute exacerbation of chronic obstructive airways disease Current Visit: Yes Status: Acute (3) Atrial fibrillation Current Visit: Yes Status: Acute Qualifiers: Atrial fibrillation type: persistent Qualified Code(s): I48.1 - Persistent atrial fibrillation (4) ESRD (end stage renal disease) on dialysis Current Visit: Yes Status: Acute (5) Dyspnea Current Visit: No Status: Acute Qualifiers: Dyspnea type: shortness of breath Qualified Code(s): R06.02 - Shortness of breath (6) Lung cancer Current Visit: No Status: Chronic Qualifiers: Laterality: right Lung location: hilum of lung Qualified Code(s): C34.01 - Malignant neoplasm of right main bronchus (7) Systolic heart failure secondary to coronary artery disease Current Visit: No Status: Chronic History of Present Illness Consult date: 09/04/17 Requesting physician: Gerber Louis Reason for consult: dyspnea Chief complaint: Shortness of Breath History of present illness: This very pleasant 61-year-old gentleman who is well-known to the pulmonary service. He was diagnosed with non-small cell lung cancer earlier in the year with a sentinel event being hemoptysis.. Since then he is undergone chemoradiation. He presented from dialysis because of elevated heart rate noted to be A. fib with RVR cardiology has been consulted for that and he has been rate controlled over the last couple of days despite aggressive volume removal with dialysis for suspected decompensated heart failure with reduced ejection fraction he remains dyspneic he was also noted to have a possible COPD exacerbation and given steroids bronchodilators with a respiratory infectious panel positive for entero/rhinovirus. In conversation today what appears to be bothering him the most is a "rattling and my chest" and inability to cough up phlegm. He denies chest pain or hemoptysis no fever chills or night sweats at present. On this admission notably he was restarted on long-term anticoagulation for atrial fibrillation per Cardiology recs. He is concerned about the frequent monitoring this will entail. 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 Past Med Surg Social Fam HX - Past Medical History Medical history: arthritis, cancer, CHF, coronary artery disease, diabetes, dialysis, GERD, hyperlipidemia, hypertension, myocardial infarction, peripheral artery disease, renal disease, other Psychiatric history: anxiety, depression - Past Surgical History Surgical History: angioplasty/stent, carotid endarterectomy, coronary bypass ( CABG), orthopedic, other, other - Social History Smoking Status: Former smoker Smokeless Tobacco Status: No (does not smoke) Alcohol use: none Drug use: none - Family History Brother Adopted: No Family Member Ethnicity: Non- Living Status: Hx Family Cardiac Disorders: Yes Hx Family Respiratory Disorders: Yes (dad black lung) Hx Family Cancer: Yes (mother) Hx Family GI Disorders: No Hx Family Endocrine Disorder: Yes (sister) Hx Family Neuromuscular Disorders: No Hx Family Neurologic Disorders: No Hx Family HEENT Disorders: No Hx Family Autoimmune Disorders: No Sister Family Member Ethnicity: Non- Living Status: Still Living Hx Family Cardiac Disorders: Yes (HD) Hx Family Respiratory Disorders: Yes (COPD) Hx Family Endocrine Disorder: Yes (Thyroid disease) Mother Adopted: No Family Member Ethnicity: Non- Living Status: Hx Family Cardiac Disorders: No Hx Family Respiratory Disorders: No Hx Family Cancer: Yes Hx Family GI Disorders: No Hx Family Endocrine Disorder: No Hx Family Neuromuscular Disorders: No Hx Family Neurologic Disorders: No Hx Family HEENT Disorders: No Hx Family Autoimmune Disorders: No Father Adopted: No Family Member Ethnicity: Non- Living Status: Hx Family Cardiac Disorders: No Hx Family Respiratory Disorders: Yes Hx Family Cancer: No Hx Family GI Disorders: No Hx Family Endocrine Disorder: No Hx Family Neuromuscular Disorders: No Hx Family Neurologic Disorders: No Hx Family HEENT Disorders: No Hx Family Autoimmune Disorders: No Medications and Allergies Famotidine [Pepcid] 10 mg PO BID #60 tablet 07/03/15 [Rx] Albuterol Sulfate [Albuterol Inhaler] 2 puff IH Q4HR 07/29/15 [History] Budesonide/Formoterol 160/4.5 [Symbicort] 2 puff IH BIDR 07/29/15 [History] Gabapentin [Neurontin] 100 mg PO TID 07/29/15 [History] Glimepiride [Amaryl] 2 mg PO DAILY 07/29/15 [History] Calcium Acetate [Phos-LO] 667 mg PO TIDWM #90 capsule 10/02/15 [Rx] Carvedilol [Coreg] 25 mg PO BID #60 tablet 10/02/15 [Rx] Furosemide [Lasix] 40 mg PO DAILY 08/31/16 [History] Oxygen 2 l NS AD 08/31/16 [History] Albuterol Neb [Proventil Neb] 2.5 mg IH Q4HR PRN #30 vial.neb 09/03/16 [Rx] Multivitamin [Multivitamins] 1 cap PO DAILY 11/03/16 [History] Magic Mouthwash [Magic Mouthwash BLM] 10 ml PO QID PRN #240 ml 12/18/16 [Rx] Ondansetron [Zofran ODT] 8 mg SL Q4HR PRN #60 tab.rapdis 02/28/17 [Rx] Docusate [Colace] 100 mg PO DAILY #20 capsule 03/02/17 [Rx] Megestrol Acetate [Megace] 800 mg PO DAILY #400 mls 04/12/17 [Rx] Oxycodone HCl [Roxicodone 30 MG Immed Release] 30 mg PO Q8H PRN #90 tab [Rx] 3 Allergy/AdvReac Type Severity Reaction Status Date / Time pollen extracts Allergy Itching Verified 05/18/17 12:12 shellfish derived AdvReac Nausea Verified 05/18/17 12:12 IVP DYE Allergy Intermediate Vomiting Uncoded 01/20/17 23:57 All Systems: A 10-system review of systems was performed and is negative for pertinent findings except as documented above in the HPI. Physical Examination Vital Signs: Vital Signs, Last 4 Hours Resp Pulse Ox 09/04/17 12:02 20 98 General appearance: no acute distress Eyes: nonicteric ENT: oropharynx moist Neck: supple, no lymphadenopathy Effort: normal Auscultation: bilateral: rales (In lung bases), rhonchi (No wheezes appreciated) Cardiovascular: irregular rhythm Gastrointestinal: normoactive bowel sounds, soft, non-tender Integumentary: normal Extremities: no cyanosis, no edema, no clubbing Musculoskeletal: no deformities normal mental status, non-focal exam mood appropriate Results - Laboratory Findings CBC and BMP: 09/04/17 05:16 09/04/17 05:16 ABG ABG pH 7.37 pH Units (7.32-7.45) 09/02/17 04:02 ABG pCO2 48 mmHg (35-45) H 09/02/17 04:02 ABG pO2 88 mmHg (85-104) 09/02/17 04:02 ABG O2 Saturation 96 % (95-98) 09/02/17 04:02 PT/INR, D-dimer PT 28.0 Seconds (9.4-12.1) H 09/04/17 05:16 Abnormal lab findings: Abnormal lab results RBC 3.59 M/mcL (4.19-5.50) L 09/04/17 05:16 Hgb 10.1 g/dL (12.9-16.9) L 09/04/17 05:16 Hct 33.6 % (37.5-50.1) L 09/04/17 05:16 MCHC 30.1 g/dL (31.6-35.5) L 09/04/17 05:16 RDW 18.1 % (11.5-14.5) H 09/04/17 05:16 Neutrophils # 9.5 K/mcL (1.6-8.9) H 09/01/17 05:44 Lymphocytes # 0.3 K/mcL (0.6-4.6) L 09/01/17 05:44 PT 28.0 Seconds (9.4-12.1) H 09/04/17 05:16 APTT 76.6 Seconds (26.0-36.0) H 08/31/17 17:24 ABG pCO2 48 mmHg (35-45) H 09/02/17 04:02 ABG HCO3 28 mEq/L (21-27) H 09/02/17 04:02 ABG Total CO2 29 mEq/L (20-26) H 09/02/17 04:02 Sodium 132 mEq/L (136-145) L 09/04/17 05:16 Potassium 4.6 mEq/L (3.5-4.5) H 09/04/17 05:16 Chloride 92 mEq/L (98-109) L 09/04/17 05:16 BUN 56 mg/dL (8-26) H D 09/04/17 05:16 Creatinine 3.16 mg/dL (0.72-1.25) H 09/04/17 05:16 Est GFR ( Amer) 25 (> 60) L 09/04/17 05:16 Est GFR (Non-Af Amer) 20 (> 60) L 09/04/17 05:16 Glucose 181 mg/dL (70-99) H 09/04/17 05:16 POC Glucose 260 (58-89) H 09/04/17 11:16 Calcium 8.3 mg/dL (8.6-10.8) L 09/04/17 05:16 Troponin I 0.25 ng/mL (0-0.03) H* 08/30/17 14:27 Entero/Rhino (PCR) DETECTED (Not Detect) A 09/02/17 08:04 - Microbiology Findings Microbiology Findings: Microbiology, Last 48 Hours 09/02/17 22:38 Sputum Culture - Preliminary Sputum 09/02/17 02:36 Blood Culture - Preliminary Peripheral Venipuncture No growth. 09/02/17 02:26 Blood Culture - Preliminary Peripheral Venipuncture No growth. 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
[2017-09-04] MEDS: Ondansetron ODT 4 MG TAB.RAPDIS SL PRN (17:32)
[2017-09-04] MEDS ORDERED: *HR* Warfarin 2.5 MG TABLET PO ONE (18:00)
[2017-09-04] MEDS: *HR* Acetylcysteine 20% 600 MG/3 ML ORAL SYRINGE PO SCH (21:51)
--- NOTE | 2017-09-04 23:23 | Nephrology Progress Note ---
Date of Encounter: 09/04/17 Time of Encounter: 11:00 - Assessment and Plan (1) ESRD (end stage renal disease) on dialysis Current Visit: Yes Status: Acute Next HD planned tomorrow with aggressive UF as tolerated SOB does not appear to be fluid overload, not extra UF needed today Pt does not appear with any visible signs of fluid at this time Agree with CT chest with contrast if needed (2) Hyperkalemia Current Visit: No Status: Acute Potassium improved after HD, will monitor on renal diet (3) Acute and chronic respiratory failure ([id number]) Current Visit: Yes Status: Acute Agree with CT chest, SOB likely multifactorial Continue antibiotics per primary team Qualifiers: Respiratory failure complication: hypoxia Qualified Code(s): J96.21 - Acute and chronic respiratory failure with hypoxia Subjective Principal diagnosis: ESRD Interval history: Interim noted, pt seen and examined with continued SOb despite HD yesterday with 3600cc fluid removal Objective - Vital Signs Vital signs: Vital Signs Temp Pulse Resp BP Pulse Ox 09/04/17 20:02 20 97 09/04/17 19:17 98.4 F 69 22 140/82 96 09/04/17 16:00 98 F 75 17 124/75 96 09/04/17 12:02 20 98 09/04/17 07:35 18 98 09/04/17 07:00 97.7 F 94 18 137/83 98 09/04/17 05:00 97.7 F 80 20 129/73 96 09/04/17 03:49 18 97 09/03/17 23:50 98.4 F 88 22 134/79 100 Intake and Output 09/04/17 09/04/17 09/04/17 07:59 15:59 23:59 Intake Total 0 / 0 240 / 240 120 / 120 Balance 0 / 0 240 / 240 120 / 120 Intake: Oral 0 / 0 240 / 240 120 / 120 Other: Meal Breakfast Lunch Percent of Meal Consumed 100% 90% # Voids 1 Weight 63.7 kg 63.7 kg Blood Glucose* 271 260 180 Patient Weight 09/04/17 23:59 Weight 63.7 kg - General Appearance General appearance: Present: moderate distress (due to SOB), chronically ill EENT: Present: ATNC, mucous membranes moist Neck: Present: supple Respiratory: Present: course breath sounds Cardiology: Present: no edema, normal S1, normal S2 Dialysis Vascular Access: Arteriovenous Fistula thrill: Yes bruit: Yes Gastrointestinal: Present: no tenderness, no guarding Integumentary: Present: warm and dry Neurologic: Present: no focal deficit Musculoskeletal: Present: no deformities Psychiatric: Present: mood/affect appropriate, cooperative - Lab 09/04/17 05:16 09/04/17 05:16 Most recent lab results ABG pH 7.37 pH Units (7.32-7.45) 09/02/17 04:02 ABG pCO2 48 mmHg (35-45) H 09/02/17 04:02 ABG pO2 88 mmHg (85-104) 09/02/17 04:02 ABG HCO3 28 mEq/L (21-27) H 09/02/17 04:02 ABG O2 Saturation 96 % (95-98) 09/02/17 04:02 Calcium 8.3 mg/dL (8.6-10.8) L 09/04/17 05:16 Magnesium 2.2 mg/dL (1.6-2.6) 09/01/17 05:44 - VTE Documentation of Mechanical Device: Intermittent pneumatic compression device Consult Discharge Plan - Plan Instructions: Heart Failure (DC), Atrial Flutter (DC), Pacemaker (DC), Hemodialysis (DC), Hemodialysis (GEN), Diabetes Mellitus Type 2 in Adults (DC), Chronic Obstructive Pulmonary Disease (DC), Chronic Hypertension (DC), Anemia ( GEN), Cigarette Smoking and 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
[2017-09-05] MEDS: Ipratropium/Albuterol Neb 3 ML IH SCH ×6 (04:22→23:04)
[2017-09-05 04:36] LABS: INR 1.7; Prothrombin Time 18.2 Seconds (9.4-12.1)
[2017-09-05 04:44] LABS: Hematocrit 35.5 % (37.5-50.1); Hemoglobin 10.8 g/dL (12.9-16.9); Mean Corpuscular HGB Conc 30.4 g/dL (31.6-35.5); Mean Corpuscular Hemoglobin 28.6 pg (28.0-33.3); Mean Corpuscular Volume 94.2 fL (83.0-100.0); Mean Platelet Volume 11.2 fL (9.4-12.4); Platelet Count 219 K/mcL (140-400); Red Blood Count 3.77 M/mcL (4.19-5.50)
[2017-09-05 04:46] LABS: Calcium 8.4 mg/dL (8.6-10.8); Potassium 4.9 mEq/L (3.5-4.5)
[2017-09-05] MEDS: *HR* OxyCODONE Immed Rel 15 MG TABLET PO PRN ×3 (05:14→18:19)
[2017-09-05] MEDS: Budesonide/Formoterol 160/4.5 MDI IH SCH ×2 (07:35→19:56)
[2017-09-05] MEDS: Magic Mouthwash 10 ML UD Cup PO SCH ×3 (07:45→16:49)
[2017-09-05] MEDS: Chloraseptic Spray 177 ML BOTTLE MM SCH ×4 (07:50→22:46)
[2017-09-05] MEDS ORDERED: Vancomycin 1,000 MG in D5% in Water 250 ML IVPB ONE (08:00)
[2017-09-05] MEDS: Famotidine 20 MG TABLET PO SCH ×2 (08:10→15:19)
[2017-09-05] MEDS: Calcium Acetate 667 MG CAPSULE PO SCH ×3 (08:10→18:19)
[2017-09-05] MEDS: Ondansetron ODT 4 MG TAB.RAPDIS SL PRN (08:10)
[2017-09-05] MEDS: Gabapentin 100 MG CAPSULE PO SCH ×3 (08:18→22:42)
[2017-09-05] MEDS: predniSONE 20 MG TABLET PO SCH (08:18)
[2017-09-05] MEDS: Insulin LISPRO 300 UNITS/3 ML VIAL SQ SCH ×4 (08:19→22:46)
--- NOTE | 2017-09-05 08:19 | Internal Med Progress Note ---
<Gerber Louis - Last Filed: 09/05/17 14:54> Date of Encounter: 09/05/17 Time of Encounter: 08:17 - Assessment and plan (1) MRSA (methicillin resistant staphylococcus aureus) pneumonia Current Visit: Yes Status: Suspected Assessment and plan: CXRs revealed scattered airspace opacities concerning for multifocal pneumonia. Patient has presumptive MRSA positive sputum cultures. Blood cultures show no growth to date. Suspect MRSA tracheobronchitis vs PNA in the setting of prior chemotherapy and poor functional reserve. Treat 7 days with linezolid by mouth Follow up with Pulmonology in 1-2 weeks Qualifiers: Laterality: unspecified laterality Lung location: unspecified part of lung Qualified Code(s): J15.212 - Pneumonia due to Methicillin resistant Staphylococcus aureus (2) Acute and chronic respiratory failure ([id number]) Current Visit: Yes Status: Acute Assessment and plan: Patient with desaturation on room air prior to admission. Was on 2.5 L home O2 at baseline Episodes of acute respiratory distress daily in AM ABG showed mildly elevated pCO2 but normal pH and pO2. Patient commpleted 5 days of Azithromycin Discontinued Vancomycin and Zosyn Continue bronchodilators, Symbicort and supplemental oxygen. Stop Solu-Medrol and switch to Prednisone taper. Continue Mucinex and Mucomyst Pulmonology following Qualifiers: Respiratory failure complication: hypoxia Qualified Code(s): J96.21 - Acute and chronic respiratory failure with hypoxia (3) Acute exacerbation of chronic obstructive airways disease Current Visit: Yes Status: Acute Assessment and plan: Continue bronchodilators, Symbicort, and supplemental oxygen. Completed 5 day course of Azithromycin IV Prednisone 40 mg tapered over 2-3 weeks Continue Mucinex and Mucomyst Pulmonary following Follow up with Pulm within 1-2 weeks after discharge (4) History of lung cancer Current Visit: No Status: Chronic Assessment and plan: History of squamous cell carcinomas, Follows with [facility]. Patient reports has finished chemo and radiation. He underwent last chemoradiation April 2017 Bronchoscopy 05/21/17 revealed extensive mucoid secretions throughout the tracheobronchial tree worse in the right upper lobe. There were no other obstructing lesions Continue to monitor with CT imaging surveillance as per oncologic protocol (5) Atrial flutter Current Visit: Yes Status: Acute Assessment and plan: A-fib/flutter, currently rate-controlled Continue Coreg and Cardizem. CHADS-VASc Score 4. Per patient, anticoagulation was stopped due to chemo induced hemoptysis Cardiology recommends bridging to Coumadin therapy. Not an ideal candidate for NOAC due to end-stage renal disease and valvular disease. Case was discussed with patient's producer assistant Dr. Calero on 08/30/17 who agreed with starting anticoagulation at this time as long as he is not bleeding. INR 1.7 today (patient recently given antibiotics). Continue Coumadin dosing per pharmacy. Will recheck PT/INR tomorrow. Case was discussed with quality assurance qa lab analyst Dr. Gallagher. The goal is to make an arrangement so that patient can have his INR levels checked during dialysis. Patient will need outpatient follow-up with cardiology Dr. Esteban. Qualifiers: Atrial flutter type: typical Qualified Code(s): I48.3 - Typical atrial flutter (6) ESRD (end stage renal disease) on dialysis Current Visit: Yes Status: Acute Assessment and plan: Known ESRD, s/p left nephrectomy On HD MWF, Continue HD as scheduled The goal is to make an arrangement so that patient can have his INR levels checked during dialysis Avoid nephrotoxins Nephrology following. (7) Elevated troponin Current Visit: Yes Status: Chronic Assessment and plan: Serial troponin 0.12 --> 0.26 --> 0.25 Chronic troponemia in the setting of A-fib RVR, ESRD, CAD. This likely represents demand ischemia. Treatment with rate control Discontinued Heparin drip once coumadin therapeutic Cardiology signed off (8) Diabetes mellitus, type 2 Current Visit: No Status: Chronic Assessment and plan: HGB a1c 4.8 on 05/19/17 Continue accuchecks and SSI Qualifiers: Diabetes mellitus complication status: with unspecified complications Diabetes mellitus longterm insulin use: without longterm use Qualified Code( s): E11.8 - Type 2 diabetes mellitus with unspecified complications (9) CAD (coronary artery disease) Current Visit: No Status: Chronic Assessment and plan: Continue current management Qualifiers: Coronary Disease-Associated Artery/Lesion type: bypass graft [place] vs. transplanted heart: [place] heart Associated angina: without angina Qualified Code(s): I25.810 - Atherosclerosis of coronary artery bypass graft(s) without angina pectoris (10) HTN (hypertension) Current Visit: No Status: Chronic Assessment and plan: BP within normal range. Continue current antihypertensive regimen. Qualifiers: Hypertension type: essential hypertension Qualified Code(s): I10 - Essential (primary) hypertension (11) HLD (hyperlipidemia) Current Visit: No Status: Chronic Assessment and plan: Continue statin Qualifiers: Hyperlipidemia type: mixed hyperlipidemia Qualified Code(s): E78.2 - Mixed hyperlipidemia (12) GERD (gastroesophageal reflux disease) Current Visit: No Status: Chronic Assessment and plan: Continue to monitor Qualifiers: Esophagitis presence: without esophagitis Qualified Code(s): K21.9 - Gastro -esophageal reflux disease without esophagitis (13) DVT prophylaxis Current Visit: No Status: Acute Assessment and plan: Now off Heparin ggt, bridged to Coumadin The goal is to make an arrangement so that patient can have his INR levels checked during dialysis - Subjective Interval history: Patient seen and examined. Patient has presumptive MRSA positive sputum cultures. Patient denies fever, chills, CP, SOB, abd pain, N/V/D, bleeding, hemoptysis, melena, or leg edema. His SpO2 is 93% today at 3L O2 via NC. - Constitutional Vitals: Temp Pulse Resp BP Pulse Ox 97.8 F 81 16 126/67 93 09/05/17 07:51 09/05/17 07:51 09/05/17 07:51 09/05/17 07:51 09/05/17 07:51 General appearance: Present: cooperative, A&O X 3, pleasant, no acute distress, answers questions appropriately - Head Head exam: Present: atraumatic, normal inspection, normocephalic - Eye Eye exam: Present: EOMI, conjuntiva pink, sclera anicteric - ENT ENT exam: Present: mucous membranes moist, normal oropharynx - Neck Neck exam general surgery: Present: normal inspection, supple. Absent: tenderness - Respiratory Respiratory exam: Present: wheezes (bilateral). Absent: accessory muscle use, respiratory distress - Cardiovascular Cardiovascular exam: Present: RRR, +S1, +S2 - GI/Abdominal GI/Abdominal exam: Present: normal bowel sounds, soft. Absent: distended, guarding, tenderness - Additional comments: no smith - Extremities Exam Extremities exam: Present: normal inspection. Absent: pedal edema, tenderness - Back Exam Back exam: Present: normal inspection. Absent: paraspinal tenderness, tenderness - Neurological Exam Neurological exam: Present: alert, oriented X3, no focal deficits. Absent: speech deficit - Psychiatric Psychiatric exam: Present: normal affect, normal mood - Skin Skin exam: Present: dry, normal color, warm Internal Medicine: Result - Labs CBC & Chem 7: 09/05/17 03:50 09/05/17 03:50 Labs: Short CBC 09/05/17 Range/Units 03:50 WBC 9.7 (4.3-11.1) K/mcL Hgb 10.8 L (12.9-16.9) g/dL Hct 35.5 L (37.5-50.1) % Plt Count 219 (140-400) K/mcL BMP 09/05/17 03:50 Sodium 133 L Potassium 4.9 H Chloride 94 L Carbon Dioxide 28 BUN 82 H D Creatinine 3.96 H Glucose 297 H Calcium 8.4 L - ABG Interpretation ABG results: ABG ABG pH 7.37 pH Units (7.32-7.45) 09/02/17 04:02 ABG pCO2 48 mmHg (35-45) H 09/02/17 04:02 ABG pO2 88 mmHg (85-104) 09/02/17 04:02 ABG O2 Saturation 96 % (95-98) 09/02/17 04:02 PT/INR, D-dimer PT 18.2 Seconds (9.4-12.1) H 09/05/17 03:50 - Pulse Oximetry Interpretation Digit-Finger Pulse Oximetry Readin (on 2.5 L O2 via NC) Actions taken: none - VTE Documentation of Mechanical Device: Intermittent pneumatic compression device Consult Discharge Plan - Plan Instructions: Heart Failure (DC), Atrial Flutter (DC), Pacemaker (DC), Hemodialysis (DC), Hemodialysis (GEN), Diabetes Mellitus Type 2 in Adults (DC), Chronic Obstructive Pulmonary Disease (DC), Chronic Hypertension (DC), Anemia ( GEN), Cigarette Smoking and Your Health, District Manager Major Accounts Sales (GEN) Referrals: Jeromy Wall MD [Primary Care Provider] - 09/07/17 2:00 pm <Paradise Lyons - Last Filed: 09/05/17 15:29> Date of Encounter: 09/05/17 - Constitutional Vitals: Temp Pulse Resp BP Pulse Ox 97.8 F 81 17 143/78 93 09/05/17 10:10 09/05/17 07:51 09/05/17 10:10 09/05/17 10:10 09/05/17 07:51 Internal Medicine: Result - Labs CBC & Chem 7: 09/05/17 03:50 09/05/17 03:50 Labs: Short CBC 09/05/17 Range/Units 03:50 WBC 9.7 (4.3-11.1) K/mcL Hgb 10.8 L (12.9-16.9) g/dL Hct 35.5 L (37.5-50.1) % Plt Count 219 (140-400) K/mcL BMP 09/05/17 03:50 Sodium 133 L Potassium 4.9 H Chloride 94 L Carbon Dioxide 28 BUN 82 H D Creatinine 3.96 H Glucose 297 H Calcium 8.4 L - ABG Interpretation ABG results: ABG ABG pH 7.37 pH Units (7.32-7.45) 09/02/17 04:02 ABG pCO2 48 mmHg (35-45) H 09/02/17 04:02 ABG pO2 88 mmHg (85-104) 09/02/17 04:02 ABG O2 Saturation 96 % (95-98) 09/02/17 04:02 PT/INR, D-dimer PT 18.2 Seconds (9.4-12.1) H 09/05/17 03:50 - Attending Attestation I have seen and examined the patient independently. I have discussed with resident physician Dr Louis regarding the management plan. Agree with the documentation. Patient said less shortness of breath. Vital signs stable. Sputum culture shows probably MRSA, will start Linezolid po to finish 7 days course. Plan to discharge patient in tomorrow a.m. if condition remains stable.
[2017-09-05] MEDS ORDERED: 0.9 % Sodium Chloride 250 ML IVC PRN (08:32)
--- NOTE | 2017-09-05 09:33 | Pulmonology Progress Note ---
Date of Encounter: 09/05/17 Time of Encounter: 09:32 Assessment and Plan (1) Acute and chronic respiratory failure ([id number]) Current Visit: Yes Status: Acute This is a 61-year-old gentleman with non-small cell lung cancer ESRD heart failure with reduced ejection fraction atrial fibrillation end-stage renal disease advanced COPD oxygen dependent who was admitted with supraventricular tachyarrhythmia and increased dyspnea which is multifactorial in nature including heart failure and COPD exacerbation now with MRSA tracheobronchitis. Clinically patient is improving on more conservative therapy he has been treated with antimicrobials but no sputum culture was positive for presumptive MRSA. This is fairly heavy colonization and I think this is a reflection of tracheobronchitis as opposed to acute pneumonia given clinical stability. The question of whether to treat this finding of likely colonization or not is debatable on balance given ongoing chemotherapy and poor functional reserve at baseline it is reasonable to treat for 7 days with linezolid by mouth. I would continue guaifenesin and N-acetylcysteine by mouth at time of discharge along with bronchodilators and steroid taper over 2 weeks. He should have pulmonary follow-up within 2-4 weeks Cardiology and nephrology following for ongoing chronic management of heart disease and end-stage renal disease dialysis dependent. Pulmonary will sign off please call with any questions Qualifiers: Respiratory failure complication: hypoxia Qualified Code(s): J96.21 - Acute and chronic respiratory failure with hypoxia (2) Acute exacerbation of chronic obstructive airways disease Current Visit: Yes Status: Acute (3) Atrial fibrillation Current Visit: Yes Status: Acute Qualifiers: Atrial fibrillation type: persistent Qualified Code(s): I48.1 - Persistent atrial fibrillation (4) ESRD (end stage renal disease) on dialysis Current Visit: Yes Status: Acute (5) Dyspnea Current Visit: No Status: Acute Qualifiers: Dyspnea type: shortness of breath Qualified Code(s): R06.02 - Shortness of breath (6) Lung cancer Current Visit: No Status: Chronic Qualifiers: Laterality: right Lung location: hilum of lung Qualified Code(s): C34.01 - Malignant neoplasm of right main bronchus (7) Systolic heart failure secondary to coronary artery disease Current Visit: No Status: Chronic (8) Tracheobronchitis Current Visit: Yes Status: Acute Subjective Principal diagnosis: ESRD Interval history: Mr. Guardado appears to be doing much better today he says that cough has improved and his shortness of breath is also resolving. He feels that he is near his baseline and ready to go home Objective PUL Vital signs: Last Vital Signs Temp 97.8 F 09/05/17 07:51 Pulse 81 09/05/17 07:51 Resp 16 09/05/17 07:51 BP 126/67 09/05/17 07:51 Pulse Ox 93 09/05/17 07:51 General appearance: no acute distress Auscultation: bilateral: rhonchi Cardiovascular: irregular rhythm Gastrointestinal: normoactive bowel sounds Extremities: no edema Results - Laboratory Findings CBC and BMP: 09/05/17 03:50 09/05/17 03:50 ABG ABG pH 7.37 pH Units (7.32-7.45) 09/02/17 04:02 ABG pCO2 48 mmHg (35-45) H 09/02/17 04:02 ABG pO2 88 mmHg (85-104) 09/02/17 04:02 ABG O2 Saturation 96 % (95-98) 09/02/17 04:02 PT/INR, D-dimer PT 18.2 Seconds (9.4-12.1) H 09/05/17 03:50 Abnormal lab findings: Abnormal lab results RBC 3.77 M/mcL (4.19-5.50) L 09/05/17 03:50 Hgb 10.8 g/dL (12.9-16.9) L 09/05/17 03:50 Hct 35.5 % (37.5-50.1) L 09/05/17 03:50 MCHC 30.4 g/dL (31.6-35.5) L 09/05/17 03:50 RDW 18.0 % (11.5-14.5) H 09/05/17 03:50 Neutrophils # 9.5 K/mcL (1.6-8.9) H 09/01/17 05:44 Lymphocytes # 0.3 K/mcL (0.6-4.6) L 09/01/17 05:44 PT 18.2 Seconds (9.4-12.1) H 09/05/17 03:50 APTT 76.6 Seconds (26.0-36.0) H 08/31/17 17:24 ABG pCO2 48 mmHg (35-45) H 09/02/17 04:02 ABG HCO3 28 mEq/L (21-27) H 09/02/17 04:02 ABG Total CO2 29 mEq/L (20-26) H 09/02/17 04:02 Sodium 133 mEq/L (136-145) L 09/05/17 03:50 Potassium 4.9 mEq/L (3.5-4.5) H 09/05/17 03:50 Chloride 94 mEq/L (98-109) L 09/05/17 03:50 BUN 82 mg/dL (8-26) H D 09/05/17 03:50 Creatinine 3.96 mg/dL (0.72-1.25) H 09/05/17 03:50 Est GFR ( Amer) 19 (> 60) L 09/05/17 03:50 Est GFR (Non-Af Amer) 16 (> 60) L 09/05/17 03:50 Glucose 297 mg/dL (70-99) H 09/05/17 03:50 POC Glucose 180 (58-89) H 09/04/17 20:01 Calculated Osmolality 312 (280-300) H 09/05/17 03:50 Calcium 8.4 mg/dL (8.6-10.8) L 09/05/17 03:50 Troponin I 0.25 ng/mL (0-0.03) H* 08/30/17 14:27 Entero/Rhino (PCR) DETECTED (Not Detect) A 09/02/17 08:04 - Microbiology Findings Microbiology Findings: Microbiology, Last 48 Hours 09/02/17 22:38 Sputum Culture - Preliminary Sputum Staphylococcus aureus 09/02/17 02:36 Blood Culture - Preliminary Peripheral Venipuncture No growth. 09/02/17 02:26 Blood Culture - Preliminary Peripheral Venipuncture No growth. - Clinical Findings Intake & Output: Intake & Output 09/04/17 09/05/17 09/05/17 23:59 07:59 15:59 Intake Total 120 / 120 Balance 120 / 120 Weight 63.3 kg - VTE Documentation of Mechanical Device: Intermittent pneumatic compression device Consult Discharge Plan - Plan Instructions: Heart Failure (DC), Atrial Flutter (DC), Pacemaker (DC), Hemodialysis (DC), Hemodialysis (GEN), Diabetes Mellitus Type 2 in Adults (DC), Chronic Obstructive Pulmonary Disease (DC), Chronic Hypertension (DC), Anemia ( GEN), Cigarette Smoking and Your Health, Entry Level Electrician (GEN) Referrals: Jeromy Wall MD [Primary Care Provider] - 09/07/17 2:00 pm
[2017-09-05] MEDS ORDERED: Aminoglycoside Consult 1 EACH MC ONE (10:11)
[2017-09-05] MEDS ORDERED: 0.9 % Sodium Chloride 2,000 ML ONE (11:18)
--- NOTE | 2017-09-05 11:26 | Nephrology Progress Note ---
Date of Encounter: 09/05/17 Time of Encounter: 11:24 - Assessment and Plan (1) ESRD (end stage renal disease) on dialysis Current Visit: Yes Status: Acute HD today Avoid nephrotoxins if possible (2) COPD exacerbation Current Visit: No Status: Acute per pulmonary team (3) Hyperkalemia Current Visit: No Status: Acute K+ stable at 4.9 Continue renal diet Subjective Principal diagnosis: ESRD Interval history: Patient seen and examined during dialysis. States he is feeling much better since started on new antibiotic. Objective - Vital Signs Vital signs: Vital Signs Temp Pulse Resp BP Pulse Ox 09/05/17 07:51 97.8 F 81 16 126/67 93 09/05/17 07:39 18 94 09/05/17 04:22 23 97 09/05/17 04:11 98.6 F 82 19 154/92 96 09/04/17 23:34 21 96 09/04/17 20:02 20 97 09/04/17 19:17 98.4 F 69 22 140/82 96 09/04/17 16:00 98 F 75 17 124/75 96 09/04/17 12:02 20 98 Intake and Output 09/04/17 09/05/17 09/05/17 23:59 07:59 15:59 Intake Total 120 / 120 Balance 120 / 120 Intake: Oral 120 / 120 Other: Meal Lunch Percent of Meal Consumed 90% Weight 63.3 kg Blood Glucose* 180 268 Patient Weight 09/05/17 23:59 Weight 63.3 kg - General Appearance General appearance: Present: chronically ill, frail EENT: Present: ATNC, mucous membranes moist, hearing intact, vision intact Neck: Present: supple Respiratory: Present: rhonchi Cardiology: Present: no edema, normal S1, normal S2 Dialysis Vascular Access: Arteriovenous Fistula Gastrointestinal: Present: no tenderness, no guarding Integumentary: Present: warm and dry Neurologic: Present: alert and oriented x3 Psychiatric: Present: mood/affect appropriate, cooperative - Lab 09/05/17 03:50 09/05/17 03:50 Most recent lab results ABG pH 7.37 pH Units (7.32-7.45) 09/02/17 04:02 ABG pCO2 48 mmHg (35-45) H 09/02/17 04:02 ABG pO2 88 mmHg (85-104) 09/02/17 04:02 ABG HCO3 28 mEq/L (21-27) H 09/02/17 04:02 ABG O2 Saturation 96 % (95-98) 09/02/17 04:02 Calcium 8.4 mg/dL (8.6-10.8) L 09/05/17 03:50 Magnesium 2.2 mg/dL (1.6-2.6) 09/01/17 05:44 - VTE Documentation of Mechanical Device: Intermittent pneumatic compression device Consult Discharge Plan - Plan Instructions: Heart Failure (DC), Atrial Flutter (DC), Pacemaker (DC), Hemodialysis (DC), Hemodialysis (GEN), Diabetes Mellitus Type 2 in Adults (DC), Chronic Obstructive Pulmonary Disease (DC), Chronic Hypertension (DC), Anemia ( GEN), Cigarette Smoking and Your Health, Wwe Wrestler (GEN) Referrals: Jeromy Wall MD [Primary Care Provider] - 09/07/17 2:00 pm
[2017-09-05] MEDS: Diltiazem CD (24hr) 120 MG CAPSULE PO SCH (15:20)
[2017-09-05] MEDS: Linezolid 600 MG TABLET PO SCH ×2 (15:20→22:42)
[2017-09-05] MEDS: Furosemide 40 MG TABLET PO SCH (15:20)
[2017-09-05] MEDS: *HR* Glimepiride 4 MG TABLET PO SCH (15:20)
[2017-09-05] MEDS: *HR* Acetylcysteine 20% 600 MG/3 ML ORAL SYRINGE PO SCH ×2 (16:40→22:43)
[2017-09-05] MEDS ORDERED: *HR* Warfarin 2.5 MG TABLET PO ONE (18:00)
[2017-09-06] MEDS: *HR* OxyCODONE Immed Rel 15 MG TABLET PO PRN ×4 (00:32→18:21)
[2017-09-06] MEDS: Ipratropium/Albuterol Neb 3 ML IH SCH ×2 (04:10→07:41)
[2017-09-06 05:38] LABS: Basophils % 0.1 %; Hematocrit 35.1 % (37.5-50.1); Hemoglobin 10.7 g/dL (12.9-16.9); Immature Granulocytes % 0.6 % (0-4); Lymphocytes # 0.6 K/mcL (0.6-4.6); Lymphocytes % 5.5 %; Mean Corpuscular HGB Conc 30.5 g/dL (31.6-35.5); Mean Corpuscular Hemoglobin 28.5 pg (28.0-33.3); Mean Corpuscular Volume 93.6 fL (83.0-100.0); Mean Platelet Volume 10.8 fL (9.4-12.4); Monocytes # 0.9 K/mcL (0.0-1.3); Monocytes % 9.1 %; Neutrophils # 8.8 K/mcL (1.6-8.9); Platelet Count 181 K/mcL (140-400); Red Blood Count 3.75 M/mcL (4.19-5.50); Red Cell Distribution Width 17.7 % (11.5-14.5); Segmented Neutrophils % 84.7 %
[2017-09-06 05:42] LABS: INR 1.6; Prothrombin Time 17.6 Seconds (9.4-12.1)
[2017-09-06 05:58] LABS: Calcium 8.1 mg/dL (8.6-10.8); Potassium 5.1 mEq/L (3.5-4.5)
--- NOTE | 2017-09-06 07:28 | Discharge Summary ---
Date of Encounter: 09/06/17 Time of Encounter: 07:28 - Discharge Diagnosis (1) MRSA (methicillin resistant staphylococcus aureus) pneumonia Status: Suspected Qualifiers: Laterality: unspecified laterality Lung location: unspecified part of lung Qualified Code(s): J15.212 - Pneumonia due to Methicillin resistant Staphylococcus aureus (2) Acute and chronic respiratory failure ([id number]) Status: Acute Qualifiers: Respiratory failure complication: hypoxia Qualified Code(s): J96.21 - Acute and chronic respiratory failure with hypoxia (3) Acute exacerbation of chronic obstructive airways disease Status: Acute (4) History of lung cancer Status: Chronic (5) Atrial flutter Status: Acute Qualifiers: Atrial flutter type: typical Qualified Code(s): I48.3 - Typical atrial flutter (6) ESRD (end stage renal disease) on dialysis Status: Acute (7) Elevated troponin Status: Chronic (8) Diabetes mellitus, type 2 Status: Chronic Qualifiers: Diabetes mellitus complication status: with unspecified complications Diabetes mellitus senior living insulin use: without terminal clerk use Qualified Code( s): E11.8 - Type 2 diabetes mellitus with unspecified complications (9) CAD (coronary artery disease) Status: Chronic Qualifiers: Coronary Disease-Associated Artery/Lesion type: bypass graft [place] vs. transplanted heart: [place] heart Associated angina: without angina Qualified Code(s): I25.810 - Atherosclerosis of coronary artery bypass graft(s) without angina pectoris (10) HTN (hypertension) Status: Chronic Qualifiers: Hypertension type: essential hypertension Qualified Code(s): I10 - Essential (primary) hypertension (11) HLD (hyperlipidemia) Status: Chronic Qualifiers: Hyperlipidemia type: mixed hyperlipidemia Qualified Code(s): E78.2 - Mixed hyperlipidemia (12) GERD (gastroesophageal reflux disease) Status: Chronic Qualifiers: Esophagitis presence: without esophagitis Qualified Code(s): K21.9 - Gastro -esophageal reflux disease without esophagitis (13) DVT prophylaxis Status: Acute - Discharge Medications Home Medications: Famotidine [Pepcid] 10 mg PO BID #60 tablet 07/03/15 [Rx] Albuterol Sulfate [Albuterol Inhaler] 2 puff IH Q4HR 07/29/15 [History] Budesonide/Formoterol 160/4.5 [Symbicort] 2 puff IH BIDR 07/29/15 [History] Gabapentin [Neurontin] 100 mg PO TID 07/29/15 [History] Glimepiride [Amaryl] 2 mg PO DAILY 07/29/15 [History] Calcium Acetate [Phos-LO] 667 mg PO TIDWM #90 capsule 10/02/15 [Rx] Carvedilol [Coreg] 25 mg PO BID #60 tablet 10/02/15 [Rx] Furosemide [Lasix] 40 mg PO DAILY 08/31/16 [History] Oxygen 2 l NS AD 08/31/16 [History] Albuterol Neb [Proventil Neb] 2.5 mg IH Q4HR PRN #30 vial.neb 09/03/16 [Rx] Multivitamin [Multivitamins] 1 cap PO DAILY 11/03/16 [History] Magic Mouthwash [Magic Mouthwash BLM] 10 ml PO QID PRN #240 ml 12/18/16 [Rx] Ondansetron [Zofran ODT] 8 mg SL Q4HR PRN #60 tab.rapdis 02/28/17 [Rx] Docusate [Colace] 100 mg PO DAILY #20 capsule 03/02/17 [Rx] Megestrol Acetate [Megace] 800 mg PO DAILY #400 mls 04/12/17 [Rx] Oxycodone HCl [Roxicodone 30 MG Immed Release] 30 mg PO Q8H PRN #90 tab [Rx] Allergies/Adverse Reactions: 3 Allergy/AdvReac Type Severity Reaction Status Date / Time pollen extracts Allergy Itching Verified 05/18/17 12:12 shellfish derived AdvReac Nausea Verified 05/18/17 12:12 IVP DYE Allergy Intermediate Vomiting Uncoded 01/20/17 23:57 Date of admission: 08/29/17 22:49 Primary care physician: Jeromy Wall MD Consults: 08/31/17 09:15 Consult to Dialysis [CONS] ONCE 09/03/17 10:15 Consult to Dialysis [CONS] ONCE 09/04/17 13:20 Consult to Pulmonology [CONS] Routine Consulting Provider: [facility] Reason for Consult: acute on chronic respiratory failure, COPD, remote lung cancer Time Notified: 13:21 Call Completed: Yes 09/04/17 14:35 Consult to Physical Therapy [CONS] Routine Comment: Evaluate, develop and implement POC Reason for Consult: weakness OT [Consult to Occupational Therapy] [CONS] Routine Comment: Evaluate, develop and implement POC Reason for Consult: weakness 09/05/17 08:45 Consult to Dialysis [CONS] ONCE - Patient Status Condition: Serious - Discharge Instructions Instructions: Heart Failure (DC), Atrial Flutter (DC), Pacemaker (DC), Hemodialysis (DC), Hemodialysis (GEN), Diabetes Mellitus Type 2 in Adults (DC), Chronic Obstructive Pulmonary Disease (DC), Chronic Hypertension (DC), Anemia ( GEN), Cigarette Smoking and Your Health, Facing Baster (GEN) Follow Up With: Jeromy Wall MD [Primary Care Provider] - 09/07/17 2:00 pm Hospital course: Mr. Guardado is a 61 year old male - Time Spent with Patient Total time spent providing and/or coordinating discharge services: - Constitutional Vitals: Temp Pulse Resp BP Pulse Ox 98.0 F 98 16 139/91 99 09/05/17 20:50 09/06/17 05:13 09/06/17 05:13 09/06/17 05:13 09/06/17 05:13 General appearance: Present: cooperative, A&O X 3, pleasant, no acute distress, answers questions appropriately - VTE Documentation of Mechanical Device: Intermittent pneumatic compression device
[2017-09-06] MEDS: Budesonide/Formoterol 160/4.5 MDI IH SCH ×2 (07:41→20:07)
[2017-09-06] MEDS ORDERED: Diltiazem CD (24hr) 180 MG CAPSULE PO SCH (09:00)
[2017-09-06] MEDS: Linezolid 600 MG TABLET PO SCH ×2 (09:23→21:47)
[2017-09-06] MEDS: Gabapentin 100 MG CAPSULE PO SCH ×3 (09:23→21:47)
[2017-09-06] MEDS: Furosemide 40 MG TABLET PO SCH (09:23)
[2017-09-06] MEDS: Calcium Acetate 667 MG CAPSULE PO SCH ×3 (09:23→16:36)
[2017-09-06] MEDS: predniSONE 20 MG TABLET PO SCH (09:24)
[2017-09-06] MEDS: Famotidine 20 MG TABLET PO SCH ×2 (09:24→16:36)
[2017-09-06] MEDS: *HR* Glimepiride 4 MG TABLET PO SCH (09:24)
[2017-09-06] MEDS: Insulin LISPRO 300 UNITS/3 ML VIAL SQ SCH ×4 (09:25→21:48)
[2017-09-06] MEDS: Magic Mouthwash 10 ML UD Cup PO SCH ×3 (09:25→16:36)
[2017-09-06] MEDS: Mag Hydrox/Al Hydrox/Simeth 30 ML UDC PO PRN (09:34)
[2017-09-06] MEDS: Ondansetron ODT 4 MG TAB.RAPDIS SL PRN ×2 (09:35→19:42)
[2017-09-06] MEDS: Chloraseptic Spray 177 ML BOTTLE MM SCH ×4 (09:36→21:48)
[2017-09-06] MEDS: Levalbuterol Neb 1.25 MG/3 ML IH SCH ×3 (11:07→23:17)
[2017-09-06] MEDS: Ipratropium Neb 0.5 MG NEBULIZER IH SCH ×4 (11:07→23:17)
[2017-09-06] MEDS: *HR* Acetylcysteine 20% 600 MG/3 ML ORAL SYRINGE PO SCH ×2 (11:51→21:48)
--- NOTE | 2017-09-06 12:01 | Nephrology Progress Note ---
Date of Encounter: 09/06/17 Time of Encounter: 11:59 - Assessment and Plan (1) ESRD (end stage renal disease) on dialysis Current Visit: Yes Status: Acute Plan for HD tomorrow Avoid nephrotoxins if possible (2) COPD exacerbation Current Visit: No Status: Acute per pulmonary team (3) Hyperkalemia Current Visit: No Status: Acute K+ stable 5.1 Continue renal diet Subjective Principal diagnosis: ESRD Interval history: Patient seen and examined during dialysis. States he is feeling well. To be discharged this evening or tomorrow. Objective - Vital Signs Vital signs: Vital Signs Temp Pulse Resp BP Pulse Ox 09/06/17 11:07 18 96 09/06/17 07:41 18 98 09/06/17 07:34 97.9 F 94 16 119/87 98 09/06/17 05:13 98 16 139/91 99 09/06/17 04:10 16 98 09/05/17 23:04 16 96 09/05/17 20:50 98.0 F 117 18 127/91 95 09/05/17 19:56 18 98 09/05/17 16:21 16 174/106 99 09/05/17 15:56 97.8 F 98 16 174/106 99 09/05/17 14:30 97.5 F L 17 132/90 09/05/17 14:10 156/94 09/05/17 13:40 144/96 09/05/17 13:10 135/99 09/05/17 12:40 186/93 09/05/17 12:10 162/100 Intake and Output 09/05/17 09/06/17 09/06/17 23:59 07:59 15:59 Output Total 900 / 900 Balance -900 / -900 Output: Urine 900 / 900 Other: Blood Glucose* 178 141 - General Appearance General appearance: Present: well-developed, well-nourished EENT: Present: ATNC, mucous membranes moist, hearing intact, vision intact Neck: Present: supple Respiratory: Present: rhonchi Cardiology: Present: no edema, normal S1, normal S2 Dialysis Vascular Access: Arteriovenous Fistula Gastrointestinal: Present: no tenderness, no guarding Integumentary: Present: warm and dry Neurologic: Present: alert and oriented x3 Psychiatric: Present: mood/affect appropriate, cooperative - Lab 09/06/17 05:08 09/06/17 05:08 Most recent lab results ABG pH 7.37 pH Units (7.32-7.45) 09/02/17 04:02 ABG pCO2 48 mmHg (35-45) H 09/02/17 04:02 ABG pO2 88 mmHg (85-104) 09/02/17 04:02 ABG HCO3 28 mEq/L (21-27) H 09/02/17 04:02 ABG O2 Saturation 96 % (95-98) 09/02/17 04:02 Calcium 8.1 mg/dL (8.6-10.8) L 09/06/17 05:08 Magnesium 2.2 mg/dL (1.6-2.6) 09/01/17 05:44 - VTE Documentation of Mechanical Device: Intermittent pneumatic compression device Consult Discharge Plan - Plan Instructions: Heart Failure (DC), Atrial Flutter (DC), Pacemaker (DC), Hemodialysis (DC), Hemodialysis (GEN), Diabetes Mellitus Type 2 in Adults (DC), Chronic Obstructive Pulmonary Disease (DC), Chronic Hypertension (DC), Anemia ( GEN), Cigarette Smoking and Your Health, 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
--- NOTE | 2017-09-06 13:00 | Internal Med Progress Note ---
<Gerber Louis - Last Filed: 09/06/17 12:57> Date of Encounter: 09/06/17 Time of Encounter: 09:10 - Assessment and plan (1) MRSA (methicillin resistant staphylococcus aureus) pneumonia Current Visit: Yes Status: Suspected Assessment and plan: CXRs revealed scattered airspace opacities concerning for multifocal pneumonia. Patient has MRSA positive sputum cultures. Blood cultures show no growth to date. Suspect MRSA tracheobronchitis vs PNA in the setting of prior chemotherapy and poor functional reserve. Treat 7 days with linezolid by mouth (Day 2 of 7) Follow up with Pulmonology in 1-2 weeks Qualifiers: Laterality: unspecified laterality Lung location: unspecified part of lung Qualified Code(s): J15.212 - Pneumonia due to Methicillin resistant Staphylococcus aureus (2) Acute and chronic respiratory failure ([id number]) Current Visit: Yes Status: Acute Assessment and plan: Patient with desaturation on room air prior to admission. Was on 2.5 L home O2 at baseline Episodes of acute respiratory distress daily in AM ABG showed mildly elevated pCO2 but normal pH and pO2. Patient commpleted 5 days of Azithromycin Discontinued Vancomycin and Zosyn Continue bronchodilators, Symbicort and supplemental oxygen. Stop Solu-Medrol and switch to Prednisone taper. Continue Mucinex and Mucomyst Pulmonology following Overnight Bipap qualification study pending Qualifiers: Respiratory failure complication: hypoxia Qualified Code(s): J96.21 - Acute and chronic respiratory failure with hypoxia (3) Acute exacerbation of chronic obstructive airways disease Current Visit: Yes Status: Acute Assessment and plan: Continue bronchodilators, Symbicort, and supplemental oxygen. Completed 5 day course of Azithromycin IV Prednisone 40 mg tapered over 2-3 weeks Continue Mucinex and Mucomyst Pulmonary following Follow up with Pulm within 1-2 weeks after discharge (4) History of lung cancer Current Visit: No Status: Chronic Assessment and plan: History of squamous cell carcinomas, Follows with [facility]. Patient reports has finished chemo and radiation. He underwent last chemoradiation April 2017 Bronchoscopy 05/21/17 revealed extensive mucoid secretions throughout the tracheobronchial tree worse in the right upper lobe. There were no other obstructing lesions Continue to monitor with CT imaging surveillance as per oncologic protocol (5) Atrial flutter Current Visit: Yes Status: Acute Assessment and plan: A-fib/flutter, currently HR between 110-130, increased Cardizem PO dose Continue Coreg CHADS-VASc Score 4. Per patient, anticoagulation was stopped due to chemo induced hemoptysis Cardiology recommends bridging to Coumadin therapy. Not an ideal candidate for NOAC due to end-stage renal disease and valvular disease. Case was discussed with patient's water softener servicer Dr. Calero on 08/30/17 who agreed with starting anticoagulation at this time as long as he is not bleeding. INR 1.6 today (patient recently given antibiotics). Continue Coumadin dosing per pharmacy. Will recheck PT/INR tomorrow. Case was discussed with reliability engineer Dr. Gallagher. The goal is to make an arrangement so that patient can have his INR levels checked during dialysis. Patient will need outpatient follow-up with cardiology Dr. Esteban. Qualifiers: Atrial flutter type: typical Qualified Code(s): I48.3 - Typical atrial flutter (6) ESRD (end stage renal disease) on dialysis Current Visit: Yes Status: Acute Assessment and plan: Known ESRD, s/p left nephrectomy On HD MWF, Continue HD as scheduled The goal is to make an arrangement so that patient can have his INR levels drawn during dialysis and PCP follow INR levels Avoid nephrotoxins Nephrology following. (7) Elevated troponin Current Visit: Yes Status: Chronic Assessment and plan: Serial troponin 0.12 --> 0.26 --> 0.25 Chronic troponemia in the setting of A-fib RVR, ESRD, CAD. This likely represents demand ischemia. Treatment with rate control Discontinued Heparin drip once coumadin therapeutic Cardiology signed off (8) Diabetes mellitus, type 2 Current Visit: No Status: Chronic Assessment and plan: HGB a1c 4.8 on 05/19/17 Continue accuchecks and SSI Qualifiers: Diabetes mellitus complication status: with unspecified complications Diabetes mellitus alf insulin use: without termite control servicer use Qualified Code( s): E11.8 - Type 2 diabetes mellitus with unspecified complications (9) CAD (coronary artery disease) Current Visit: No Status: Chronic Assessment and plan: Continue current management Qualifiers: Coronary Disease-Associated Artery/Lesion type: bypass graft [place] vs. transplanted heart: [place] heart Associated angina: without angina Qualified Code(s): I25.810 - Atherosclerosis of coronary artery bypass graft(s) without angina pectoris (10) HTN (hypertension) Current Visit: No Status: Chronic Assessment and plan: BP within normal range. Continue current antihypertensive regimen. Qualifiers: Hypertension type: essential hypertension Qualified Code(s): I10 - Essential (primary) hypertension (11) HLD (hyperlipidemia) Current Visit: No Status: Chronic Assessment and plan: Continue statin Qualifiers: Hyperlipidemia type: mixed hyperlipidemia Qualified Code(s): E78.2 - Mixed hyperlipidemia (12) GERD (gastroesophageal reflux disease) Current Visit: No Status: Chronic Assessment and plan: Continue to monitor Qualifiers: Esophagitis presence: without esophagitis Qualified Code(s): K21.9 - Gastro -esophageal reflux disease without esophagitis (13) DVT prophylaxis Current Visit: No Status: Acute Assessment and plan: Now off Heparin ggt, bridged to Coumadin The goal is to make an arrangement so that patient can have his INR levels drawn during dialysis and PCP follow INR levels - Subjective Interval history: Patient seen and examined. Patient MRSA positive sputum cultures and has been taking Zyvox. Patient denies fever, chills, CP, SOB, abd pain, N/V/D, bleeding, hemoptysis, melena, or leg edema. His SpO2 is 96% today at 3L O2 via NC. Patient reports improvement with Bipap use at night. - Constitutional Vitals: Temp Pulse Resp BP Pulse Ox 97.9 F 94 18 119/87 96 09/06/17 07:34 09/06/17 07:34 09/06/17 11:07 09/06/17 07:34 09/06/17 11:07 General appearance: Present: cooperative, A&O X 3, pleasant, no acute distress, answers questions appropriately - Head Head exam: Present: atraumatic, normal inspection, normocephalic - Eye Eye exam: Present: EOMI, conjuntiva pink, sclera anicteric - ENT ENT exam: Present: mucous membranes moist, normal oropharynx - Neck Neck exam general surgery: Present: normal inspection, supple - Respiratory Respiratory exam: Present: wheezes (diffuse). Absent: accessory muscle use, CTAB, respiratory distress, rhonchi - GI/Abdominal GI/Abdominal exam: Present: normal bowel sounds, soft. Absent: guarding, tenderness - Additional comments: no smith - Back Exam Back exam: Present: normal inspection. Absent: paraspinal tenderness, tenderness, vertebral tenderness - Neurological Exam Neurological exam: Present: alert, oriented X3, no focal deficits. Absent: speech deficit - Psychiatric Psychiatric exam: Present: normal affect, normal mood - Skin Skin exam: Present: dry, intact, normal color, warm. Absent: erythema Internal Medicine: Result - Labs CBC & Chem 7: 09/06/17 05:08 09/06/17 05:08 Labs: Short CBC 09/06/17 Range/Units 05:08 WBC 10.3 (4.3-11.1) K/mcL Hgb 10.7 L (12.9-16.9) g/dL Hct 35.1 L (37.5-50.1) % Plt Count 181 (140-400) K/mcL Neutrophils # 8.8 (1.6-8.9) K/mcL BMP 09/06/17 05:08 Sodium 136 Potassium 5.1 H Chloride 96 L Carbon Dioxide 31 H BUN 67 H Creatinine 2.81 H Glucose 145 H Calcium 8.1 L - ABG Interpretation ABG results: ABG ABG pH 7.37 pH Units (7.32-7.45) 09/02/17 04:02 ABG pCO2 48 mmHg (35-45) H 09/02/17 04:02 ABG pO2 88 mmHg (85-104) 09/02/17 04:02 ABG O2 Saturation 96 % (95-98) 09/02/17 04:02 PT/INR, D-dimer PT 17.6 Seconds (9.4-12.1) H 09/06/17 05:08 - Pulse Oximetry Interpretation Digit-Finger Pulse Oximetry Readin (on 3L on via NC) - VTE Documentation of Mechanical Device: Intermittent pneumatic compression device Consult Discharge Plan - Plan Instructions: Heart Failure (DC), Atrial Flutter (DC), Pacemaker (DC), Hemodialysis (DC), Hemodialysis (GEN), Diabetes Mellitus Type 2 in Adults (DC), Chronic Obstructive Pulmonary Disease (DC), Chronic Hypertension (DC), Anemia ( GEN), Cigarette Smoking and Your Health, Live [employer] (GEN) Referrals: Jeromy Wall MD [Primary Care Provider] - 09/11/17 2:30 pm Prescriptions: Linezolid [Zyvox] 600 mg PO BID #11 tablet <Paradise Lyons - Last Filed: 09/06/17 16:47> Date of Encounter: 09/06/17 - Constitutional Vitals: Temp Pulse Resp BP Pulse Ox 97.7 F 116 18 134/92 100 09/06/17 16:00 09/06/17 16:00 09/06/17 16:00 09/06/17 16:00 09/06/17 16:00 Internal Medicine: Result - Labs CBC & Chem 7: 09/06/17 05:08 09/06/17 05:08 Labs: Short CBC 09/06/17 Range/Units 05:08 WBC 10.3 (4.3-11.1) K/mcL Hgb 10.7 L (12.9-16.9) g/dL Hct 35.1 L (37.5-50.1) % Plt Count 181 (140-400) K/mcL Neutrophils # 8.8 (1.6-8.9) K/mcL BMP 09/06/17 05:08 Sodium 136 Potassium 5.1 H Chloride 96 L Carbon Dioxide 31 H BUN 67 H Creatinine 2.81 H Glucose 145 H Calcium 8.1 L - ABG Interpretation ABG results: ABG ABG pH 7.37 pH Units (7.32-7.45) 09/02/17 04:02 ABG pCO2 48 mmHg (35-45) H 09/02/17 04:02 ABG pO2 88 mmHg (85-104) 09/02/17 04:02 ABG O2 Saturation 96 % (95-98) 09/02/17 04:02 PT/INR, D-dimer PT 17.6 Seconds (9.4-12.1) H 09/06/17 05:08 - Attending Attestation I have seen and examined patient independently. I have discussed with the resident physician Dr. Louis regarding the management plan. Agree with the documentation. Pt is supposed to discharge home today. His SOB has improved. However, his HR is intermittently high to 130s. Will increase Cardizem CD dose to 180mg po daily. Also switch duoneb to xapnex. Hold D/C today and cont closely monitor pt.
[2017-09-06] MEDS ORDERED: *HR* Warfarin 2.5 MG TABLET PO ONE (18:00)
[2017-09-07] MEDS: Ipratropium Neb 0.5 MG NEBULIZER IH SCH ×4 (04:21→15:37)
[2017-09-07] MEDS: Levalbuterol Neb 1.25 MG/3 ML IH SCH ×3 (04:21→15:37)
[2017-09-07] MEDS: *HR* OxyCODONE Immed Rel 15 MG TABLET PO PRN ×2 (05:19→13:18)
[2017-09-07 05:45] LABS: Hematocrit 35.5 % (37.5-50.1); Hemoglobin 10.5 g/dL (12.9-16.9); Mean Corpuscular HGB Conc 29.6 g/dL (31.6-35.5); Mean Corpuscular Hemoglobin 27.8 pg (28.0-33.3); Mean Corpuscular Volume 93.9 fL (83.0-100.0); Mean Platelet Volume 10.9 fL (9.4-12.4); Platelet Count 182 K/mcL (140-400); Red Blood Count 3.78 M/mcL (4.19-5.50)
[2017-09-07 05:55] LABS: INR 1.5; Prothrombin Time 16.7 Seconds (9.4-12.1)
[2017-09-07 06:02] LABS: Calcium 8.3 mg/dL (8.6-10.8); Potassium 5.5 mEq/L (3.5-4.5)
--- NOTE | 2017-09-07 07:13 | Discharge Summary ---
<Gerber Louis - Last Filed: 09/07/17 10:57> Date of Encounter: 09/07/17 Time of Encounter: 07:13 - Discharge Diagnosis (1) MRSA (methicillin resistant staphylococcus aureus) pneumonia Priority: Primary Status: Suspected Comments: CXRs revealed scattered airspace opacities concerning for multifocal pneumonia. Patient has MRSA positive sputum cultures. Blood cultures show no growth to date. Suspect MRSA tracheobronchitis vs PNA in the setting of prior chemotherapy and poor functional reserve. Treat 7 days with linezolid by mouth (Day 3 of 7) Follow up with Pulmonology in 1-2 weeks Qualifiers: Laterality: unspecified laterality Lung location: unspecified part of lung Qualified Code(s): J15.212 - Pneumonia due to Methicillin resistant Staphylococcus aureus (2) Acute and chronic respiratory failure ([id number]) Priority: Primary Status: Acute Comments: Patient with desaturation on room air prior to admission. On 2.5 L home O2 at baseline Episodes of acute respiratory distress ABG showed mildly elevated pCO2 but normal pH and pO2. Patient commpleted 5 days of Azithromycin Discontinued Vancomycin and Zosyn Continue bronchodilators, Symbicort and supplemental oxygen. Stop Solu-Medrol and switch to Prednisone taper. Continue Mucinex and Mucomyst Pulmonology following Patient did not qualification for Bipap Qualifiers: Respiratory failure complication: hypoxia Qualified Code(s): J96.21 - Acute and chronic respiratory failure with hypoxia (3) Acute exacerbation of chronic obstructive airways disease Priority: Primary Status: Acute Comments: Continue bronchodilators, Symbicort, and supplemental oxygen. Switched duoneb to xopenex. Completed 5 day course of Azithromycin IV Prednisone 40 mg tapered over 2-3 weeks Continue Mucinex and Mucomyst Pulmonary following Follow up with Pulm within 1-2 weeks after discharge (4) History of lung cancer Priority: Secondary Status: Chronic Comments: History of squamous cell carcinomas, Follows with [facility]. Patient reports has finished chemo and radiation. He underwent last chemoradiation April 2017 Bronchoscopy 05/21/17 revealed extensive mucoid secretions throughout the tracheobronchial tree worse in the right upper lobe. There were no other obstructing lesions Continue to monitor with CT imaging surveillance as per oncologic protocol (5) Atrial flutter Priority: Primary Status: Acute Comments: A-fib/flutter, currently HR between 110-130, increased Cardizem PO dose. Switched Duoneb to Xopenex Continue Coreg CHADS-VASc Score 4. Per patient, anticoagulation was stopped due to chemo induced hemoptysis Cardiology recommends bridging to Coumadin therapy. Not an ideal candidate for NOAC due to end-stage renal disease and valvular disease. Case was discussed with patient's long wall mining machine helper Dr. Calero on 08/30/17 who agreed with starting anticoagulation at this time as long as he is not bleeding. INR 1.5 today (patient recently given antibiotics). Continue Coumadin dosing per pharmacy. Will recheck PT/INR outpatient. Patient will need outpatient follow-up with cardiology Dr. Esteban. Qualifiers: Atrial flutter type: typical Qualified Code(s): I48.3 - Typical atrial flutter (6) ESRD (end stage renal disease) on dialysis Priority: Secondary Status: Acute Comments: Known ESRD, s/p left nephrectomy On HD MWF, Continue HD as scheduled The goal is to make an arrangement so that patient can have his INR levels drawn during dialysis and PCP follow INR levels Avoid nephrotoxins Nephrology following. (7) Elevated troponin Priority: Secondary Status: Chronic Comments: Serial troponin 0.12 --> 0.26 --> 0.25 Chronic troponemia in the setting of A-fib RVR, ESRD, CAD. This likely represents demand ischemia. Treatment with rate control Discontinued Heparin drip once coumadin therapeutic Cardiology signed off (8) Diabetes mellitus, type 2 Priority: Secondary Status: Chronic Comments: HGB a1c 4.8 on 05/19/17 Continue accuchecks and SSI Qualifiers: Diabetes mellitus complication status: with unspecified complications Diabetes mellitus olericulturist insulin use: without olericulturist use Qualified Code( s): E11.8 - Type 2 diabetes mellitus with unspecified complications (9) CAD (coronary artery disease) Priority: Secondary Status: Chronic Comments: Continue current management Qualifiers: Coronary Disease-Associated Artery/Lesion type: bypass graft [place] vs. transplanted heart: [place] heart Associated angina: without angina Qualified Code(s): I25.810 - Atherosclerosis of coronary artery bypass graft(s) without angina pectoris (10) HTN (hypertension) Priority: Secondary Status: Chronic Comments: BP within normal range. Continue current antihypertensive regimen. Qualifiers: Hypertension type: essential hypertension Qualified Code(s): I10 - Essential (primary) hypertension (11) HLD (hyperlipidemia) Priority: Secondary Status: Chronic Comments: Continue statin Qualifiers: Hyperlipidemia type: mixed hyperlipidemia Qualified Code(s): E78.2 - Mixed hyperlipidemia (12) GERD (gastroesophageal reflux disease) Priority: Secondary Status: Chronic Comments: Continue to monitor Qualifiers: Esophagitis presence: without esophagitis Qualified Code(s): K21.9 - Gastro -esophageal reflux disease without esophagitis (13) DVT prophylaxis Priority: Primary Status: Acute Comments: Now off Heparin ggt, bridged to Coumadin Nephrology arranging INR levels drawn prior to dialysis and PCP will monitor INR levels - Discharge Medications Prescriptions: Ondansetron [Zofran ODT] 8 mg SL Q4HR PRN #60 tab.rapdis PRN Reason: Nausea Acetylcysteine 20% 600 mg PO BID #60 syringe Atorvastatin [Lipitor] 40 mg PO HS #30 tablet Diltiazem CD (24hr) [Cardizem CD] 240 mg PO DAILY #30 cap.er.24h GuaiFENesin ER [Mucinex] 600 mg PO BID #60 tbbp.12hr Levalbuterol Neb [Xopenex Neb] 1.25 mg IH Q6H PRN #60 vial.neb PRN Reason: Bronchospasm Linezolid [Zyvox] 600 mg PO BID #11 tablet predniSONE [PredniSONE] See Taper PO DAILY #16 tablet Warfarin [Coumadin] 2.5 mg PO 1800 #5 tablet Home Medications: Famotidine [Pepcid] 10 mg PO BID #60 tablet 07/03/15 [Rx] Albuterol Sulfate [Albuterol Inhaler] 2 puff IH Q4HR 07/29/15 [History] Budesonide/Formoterol 160/4.5 [Symbicort] 2 puff IH BIDR 07/29/15 [History] Gabapentin [Neurontin] 100 mg PO TID 07/29/15 [History] Glimepiride [Amaryl] 2 mg PO DAILY 07/29/15 [History] Calcium Acetate [Phos-LO] 667 mg PO TIDWM #90 capsule 10/02/15 [Rx] Carvedilol [Coreg] 25 mg PO BID #60 tablet 10/02/15 [Rx] Furosemide [Lasix] 40 mg PO DAILY 08/31/16 [History] Oxygen 2 l NS AD 11/03/16 [History] Albuterol Neb [Proventil Neb] 2.5 mg IH Q4HR PRN #30 vial.neb 09/03/16 [Rx] Multivitamin [Multivitamins] 1 cap PO DAILY 11/03/16 [History] Magic Mouthwash [Magic Mouthwash BLM] 10 ml PO QID PRN #240 ml 12/18/16 [Rx] Docusate [Colace] 100 mg PO DAILY #20 capsule 03/02/17 [Rx] Megestrol Acetate [Megace] 800 mg PO DAILY #400 mls 04/12/17 [Rx] Linezolid [Zyvox] 600 mg PO BID #11 tablet 09/06/17 [Rx] Acetylcysteine 20% 600 mg PO BID #60 syringe 09/07/17 [Rx] Atorvastatin [Lipitor] 40 mg PO HS #30 tablet 09/07/17 [Rx] Diltiazem CD (24hr) [Cardizem CD] 240 mg PO DAILY #30 cap.er.24h 09/07/17 [Rx] GuaiFENesin ER [Mucinex] 600 mg PO BID #60 tbbp.12hr 09/07/17 [Rx] Levalbuterol Neb [Xopenex Neb] 1.25 mg IH Q6H PRN #60 vial.neb 09/07/17 [Rx] Lidocaine/Prilocaine CREAM [Emla] 1 gm TP DAILY PRN tube 09/07/17 [Rx] Linezolid [Zyvox] 600 mg PO BID tablet 09/07/17 [Rx] Ondansetron [Zofran ODT] 8 mg SL Q4HR PRN #60 tab.rapdis 09/07/17 [Rx] Oxycodone HCl [Roxicodone 30 MG Immed Release] 15 mg PO Q8H PRN #90 tab [Rx] Warfarin [Coumadin] 2.5 mg PO 1800 #5 tablet 09/07/17 [Rx] predniSONE [PredniSONE] See Taper PO DAILY #16 tablet 09/07/17 [Rx] Allergies/Adverse Reactions: 3 Allergy/AdvReac Type Severity Reaction Status Date / Time pollen extracts Allergy Itching Verified 05/18/17 12:12 shellfish derived AdvReac Nausea Verified 05/18/17 12:12 IVP DYE Allergy Intermediate Vomiting Uncoded 01/20/17 23:57 Date of admission: 08/29/17 22:49 Primary care physician: Jeromy Wall MD Consults: 08/31/17 09:15 Consult to Dialysis [CONS] ONCE 09/03/17 10:15 Consult to Dialysis [CONS] ONCE 09/04/17 13:20 Consult to Pulmonology [CONS] Routine Consulting Provider: [facility] Reason for Consult: acute on chronic respiratory failure, COPD, remote lung cancer Time Notified: 13:21 Call Completed: Yes 09/04/17 14:35 Consult to Physical Therapy [CONS] Routine Comment: Evaluate, develop and implement POC Reason for Consult: weakness OT [Consult to Occupational Therapy] [CONS] Routine Comment: Evaluate, develop and implement POC Reason for Consult: weakness 09/05/17 08:45 Consult to Dialysis [CONS] ONCE Discharging clinician: Gerber Louis Anticipated date of discharge: 09/07/17 - Patient Status Disposition: Home, Self-Care Condition: Good Functional capacity at discharge: independent ambulation Overall status at discharge: patient is back to baseline - Discharge Instructions Instructions: Heart Failure (DC), Atrial Flutter (DC), Pacemaker (DC), Hemodialysis (DC), Hemodialysis (GEN), Diabetes Mellitus Type 2 in Adults (DC), Chronic Obstructive Pulmonary Disease (DC), Chronic Hypertension (DC), Anemia ( GEN), Cigarette Smoking and Your Health, Sponge Clipper (GEN) Follow Up With: Jeromy Wall MD [Primary Care Provider] - 09/11/17 2:30 pm Bonifacio Esteban MD [Partnered Physician] - (office will call patient at [facility] with appointment date and time) Ezequiel Perla MD [Partnered Physician] - (office will call patient at home with appointment date and time) Additional Instructions: Get INR level checked before dialysis on Sunday09/10/17 (HD unit notified by Dr. Veras to perform INR checks to forward to his PCP as follows: weekly x4 weeks and then every month thereafter) Follow up appointment with PCP on 09/11/17 for INR level results and Coumadin level adjustment Continue 2 week Prednisone taper, Mucinex, Mucomyst, and Xopenex nebulizer Continue Zyvox and follow up with Horse Breeder in 2 weeks Continue Cardizem and follow up with Cardiology/ Dr. Esteban in 1-2 weeks - Diet and Activity Activity: increase activity as tolerated, wear oxygen at all times Diet: diabetic diet, low salt diet, other (renal diet) Hospital course: Mr. Guardado is a 61 year old male with a history of CAD, CABG in 2007, oxygen dependent COPD, remote lung cancer, end-stage renal disease on dialysis Sunday and Fridays who presented from dialysis after his heart rate was noted to be elevated above 100. He was found to be in A. fib RVR and started on Cardizem drip and Heparin ggt. On examination he had significant wheezing. CXR revealed scattered airspace opacities concerning for multifocal pneumonia. Blood cultures revealed no growth to date. Patient had MRSA positive sputum cultures. Suspect MRSA tracheobronchitis vs PNA in the setting of prior chemotherapy and poor functional reserve. Pulmonology was consulted and recommended continuing bronchodilators, Mucinex, Mucomyst, Symbicort, supplemental oxygen, and two week Prednisone taper. He was started on 7 days of linezolid by mouth and instructed to follow up with Pulmonology in 1-2 weeks. Patient continued to be in A-fib/flutter, after weaned off Cardizem drip and his Cardizem PO dose was increased. His CHADS-VASc Score was 4. Cardiology recommended bridging to Coumadin therapy. Not an ideal candidate for NOAC due to end-stage renal disease and valvular disease. Case was discussed with patient 's long wall mining machine helper Dr. Calero on 08/30/17 who agreed with starting anticoagulation at this time as long as he is not bleeding. Case was discussed with training administrator who arranged patient to have his INR levels checked before dialysis and INR results managed by PCP. Patient instructed to follow-up with cardiology, Pulmonology, nephrology, and PCP. - Time Spent with Patient Total time spent providing and/or coordinating discharge services: - Constitutional Vitals: Temp Pulse Resp BP Pulse Ox 97.7 F 112 18 112/94 93 09/07/17 04:53 09/07/17 04:53 09/07/17 04:53 09/07/17 04:53 09/07/17 04:53 General appearance: Present: cooperative, A&O X 3, pleasant, no acute distress, answers questions appropriately Exam: - Head Head exam: Present: atraumatic, normal inspection, normocephalic - Eye Eye exam: Present: EOMI, conjuntiva pink, sclera anicteric - ENT ENT exam: Present: mucous membranes moist, normal oropharynx - Neck Neck exam general surgery: Present: normal inspection, supple - Cardiovascular Cardiovascular exam: Present: Irregular rhythm, tachycardia. Absent: M/R/G - Respiratory Respiratory exam: Present: mild wheezes (diffuse). Absent: accessory muscle use , CTAB, respiratory distress, rhonchi - GI/Abdominal GI/Abdominal exam: Present: normal bowel sounds, soft. Absent: guarding, tenderness - Additional comments: no smith - Back Exam Back exam: Present: normal inspection. Absent: paraspinal tenderness, tenderness, vertebral tenderness - Neurological Exam Neurological exam: Present: alert, oriented X3, no focal deficits. Absent: speech deficit - Psychiatric Psychiatric exam: Present: normal affect, normal mood - Skin Skin exam: Present: dry, intact, normal color, warm. Absent: erythema - VTE Documentation of Mechanical Device: Intermittent pneumatic compression device <Paradise Lyons - Last Filed: 09/07/17 11:59> Date of Encounter: 09/07/17 Date of admission: 08/29/17 22:49 Primary care physician: Jeromy Wall MD Consults: 08/31/17 09:15 Consult to Dialysis [CONS] ONCE 09/03/17 10:15 Consult to Dialysis [CONS] ONCE 09/04/17 13:20 Consult to Pulmonology [CONS] Routine Consulting Provider: [facility] [place] Reason for Consult: acute on chronic respiratory failure, COPD, remote lung cancer Time Notified: 13:21 Call Completed: Yes 09/04/17 14:35 Consult to Physical Therapy [CONS] Routine Comment: Evaluate, develop and implement POC Reason for Consult: weakness OT [Consult to Occupational Therapy] [CONS] Routine Comment: Evaluate, develop and implement POC Reason for Consult: weakness 09/05/17 08:45 Consult to Dialysis [CONS] ONCE 09/07/17 08:00 Consult to Dialysis [CONS] ONCE Hospital course: Mr. Guardado is a 61 year old male - Time Spent with Patient Total time spent providing and/or coordinating discharge services: - Constitutional Vitals: Temp Pulse Resp BP Pulse Ox 97.9 F 110 16 144/95 100 09/07/17 07:00 09/07/17 07:00 09/07/17 07:48 09/07/17 07:00 09/07/17 07:48 - Attending Attestation I have seen and examined pt independently, I have discussed with Resident physician Dr Louis regarding the management plan. Agree with the documentation. Pt is stable. HR get down to around 100 (A Fib, 90-110). Further increase cardizem CD to 240mg po daily upon discharge. Pt will discharge home after HD today. PCP to dose coumadin per PT/INR. Pt will finish 7 days of po zyvox for MRSA positive sputum culture.
[2017-09-07] MEDS: Insulin LISPRO 300 UNITS/3 ML VIAL SQ SCH (07:30)
[2017-09-07] MEDS: Budesonide/Formoterol 160/4.5 MDI IH SCH (07:43)
[2017-09-07] MEDS ORDERED: 0.9 % Sodium Chloride 250 ML IVC PRN (07:46)
[2017-09-07] MEDS: *HR* Acetylcysteine 20% 600 MG/3 ML ORAL SYRINGE PO SCH (08:45)
[2017-09-07] MEDS: *HR* Glimepiride 4 MG TABLET PO SCH (08:46)
[2017-09-07] MEDS: Calcium Acetate 667 MG CAPSULE PO SCH (08:46)
[2017-09-07] MEDS: Linezolid 600 MG TABLET PO SCH (08:46)
[2017-09-07] MEDS: Gabapentin 100 MG CAPSULE PO SCH (08:46)
[2017-09-07] MEDS: Famotidine 20 MG TABLET PO SCH (08:46)
[2017-09-07] MEDS: Magic Mouthwash 10 ML UD Cup PO SCH (08:47)
[2017-09-07] MEDS: predniSONE 20 MG TABLET PO SCH (08:47)
[2017-09-07] MEDS: Ondansetron ODT 4 MG TAB.RAPDIS SL PRN (08:47)
[2017-09-07] MEDS ORDERED: Diltiazem CD (24hr) 240 MG CAPSULE PO SCH (09:00)
--- NOTE | 2017-09-07 09:25 | Nephrology Progress Note ---
Date of Encounter: 09/07/17 Time of Encounter: 08:30 - Assessment and Plan (1) ESRD (end stage renal disease) on dialysis Current Visit: No Status: Chronic HD today and I called the HD unit to help verbally order INR checks to forward to his PCP as follows: weekly x4 weeks and then every month thereafter. (2) Anemia in chronic illness Current Visit: Yes Status: Chronic Goal Hgb is 10-11. He is at goal. (3) Hyperkalemia Current Visit: Yes Status: Acute Noted today, so he will need HD today for clearance. Renal diet with K+ restriction is recommended. (4) Atrial fibrillation Current Visit: Yes Status: Acute Appreciate the primary team. He is now being placed on A/C and see above regarding: INR. Qualifiers: Atrial fibrillation type: persistent Qualified Code(s): I48.1 - Persistent atrial fibrillation (5) COPD (chronic obstructive pulmonary disease) Current Visit: No Status: Chronic Chronic, improved. Appreciate primary. Qualifiers: COPD type: COPD with acute exacerbation Qualified Code(s): J44.1 - Chronic obstructive pulmonary disease with (acute) exacerbation (6) HTN (hypertension) Current Visit: No Status: Chronic Roughly stable. Hold antihypertensive meds till after HD on //. Qualifiers: Hypertension type: essential hypertension Qualified Code(s): I10 - Essential (primary) hypertension (7) Solitary kidney Current Visit: No Status: Chronic Hx of, and chronic. Subjective Principal diagnosis: ESRD Interval history: Pt was s/e this AM on the 2NE floor. He voiced feeling better and did not affirm N/V/D or CP. He asked to have the Lidocaine cream for his AVF before HD. Objective - Vital Signs Vital signs: Vital Signs Temp Pulse Resp BP Pulse Ox 09/07/17 07:48 16 100 09/07/17 07:00 97.9 F 110 19 144/95 100 09/07/17 04:53 97.7 F 112 18 112/94 93 09/07/17 04:22 18 97 09/06/17 23:18 18 99 09/06/17 22:06 100 09/06/17 21:09 98.4 F 113 18 137/92 95 09/06/17 20:28 16 99 09/06/17 16:15 16 100 09/06/17 16:00 97.7 F 116 18 134/92 100 09/06/17 11:07 18 96 Intake and Output 09/06/17 09/07/17 09/07/17 23:59 07:59 15:59 Intake Total 240 / 240 360 / 360 Balance 240 / 240 360 / 360 Intake: Oral 240 / 240 360 / 360 Other: Meal Dinner Breakfast Percent of Meal Consumed 85% 90% Blood Glucose* 207 115 - General Appearance General appearance: Present: well-developed, well-nourished, appears started age EENT: Present: ATNC, PERRL, mucous membranes moist Neck: Present: supple Respiratory: Present: wheezing (minimial and at his chronic level) Cardiology: Present: no edema, irregular rhythm, normal S1, normal S2 Dialysis Vascular Access: Arteriovenous Fistula (Right Forearm AVF) thrill: Yes bruit: Yes Gastrointestinal: Present: normoactive bowel sounds, no tenderness, no guarding Integumentary: Present: no rash, warm and dry, ecchymotic Neurologic: Present: no focal deficit, no asterixis Musculoskeletal: Present: no erythema, no cyanosis, no clubbing Psychiatric: Present: mood/affect appropriate, cooperative - Lab 09/07/17 05:09 09/07/17 05:09 Most recent lab results ABG pH 7.37 pH Units (7.32-7.45) 09/02/17 04:02 ABG pCO2 48 mmHg (35-45) H 09/02/17 04:02 ABG pO2 88 mmHg (85-104) 09/02/17 04:02 ABG HCO3 28 mEq/L (21-27) H 09/02/17 04:02 ABG O2 Saturation 96 % (95-98) 09/02/17 04:02 Calcium 8.3 mg/dL (8.6-10.8) L 09/07/17 05:09 Magnesium 2.2 mg/dL (1.6-2.6) 09/01/17 05:44 - VTE Documentation of Mechanical Device: Intermittent pneumatic compression device Consult Discharge Plan - Plan Instructions: Heart Failure (DC), Atrial Flutter (DC), Pacemaker (DC), Hemodialysis (DC), Hemodialysis (GEN), Diabetes Mellitus Type 2 in Adults (DC), Chronic Obstructive Pulmonary Disease (DC), Chronic Hypertension (DC), Anemia ( GEN), Cigarette Smoking and Your Health, Enrolled Agent (GEN) Additional Instructions: Get INR level checked before dialysis on Sunday09/10/17 Follow up appointment with PCP on 09/11/17 for INR level results and Coumadin level adjustment Continue 2 week Prednisone taper, Mucinex, Mucomyst, and Xopenex nebulizer Continue Zyvox and follow up with Neon Light Installer in 2 weeks Continue Cardizem and follow up with Cardiology/ Dr. Esteban in 1-2 weeks Referrals: Jeromy Wall MD [Primary Care Provider] - 09/11/17 2:30 pm Bonifacio Esteban MD [Partnered Physician] - (office will call patient at [place] with appointment date and time) Ezequiel Perla MD [Partnered Physician] - (office will call patient at home with appointment date and time) Prescriptions: Ondansetron [Zofran ODT] 8 mg SL Q4HR PRN #60 tab.rapdis PRN Reason: Nausea Acetylcysteine 20% 600 mg PO BID #60 syringe Atorvastatin [Lipitor] 40 mg PO HS #30 tablet Diltiazem CD (24hr) [Cardizem CD] 240 mg PO DAILY #30 cap.er.24h GuaiFENesin ER [Mucinex] 600 mg PO BID #60 tbbp.12hr Levalbuterol Neb [Xopenex Neb] 1.25 mg IH Q6H PRN #60 vial.neb PRN Reason: Bronchospasm Linezolid [Zyvox] 600 mg PO BID #11 tablet predniSONE [PredniSONE] See Taper PO DAILY #16 tablet Warfarin [Coumadin] 2.5 mg PO 1800 #5 tablet
[2017-09-07 13:45] VITALS: BP 101/69
[2017-09-07] MEDS ORDERED: *HR* Warfarin 4 MG TABLET PO ONE (18:00)
== END 2017-09-07 17:00 | disposition home or self-care (01) | DRG 177 ==
LOC: 2NENU 15:22 → EMEROO 15:22 → 2NENU 18:21 → SUATTDRO 22:49
PROVIDERS: ADMIT Hospitalist; ATTEND Internal Medicine

== ENCOUNTER 2017-10-08 09:24 | Observation (INO) ==
[2017-10-08] MEDS ORDERED: 0.9 % Sodium Chloride 250 ML IVC PRN (15:32)
[2017-10-08] MEDS ORDERED: 0.9 % Sodium Chloride 1,000 ML PRIME SCH (15:45)
[2017-10-08] MEDS ORDERED: Furosemide 40 MG/4 ML VIAL ONE (16:37)
[2017-10-08] MEDS ORDERED: Furosemide 40 MG/4 ML VIAL IVP ONE (16:45)
[2017-10-08 16:55] LABS: VBG HCO3 26 mEq/L (21-27); VBG PCO2 45 mmHg (41-51); VBG PH 7.37 pH Units (7.32-7.42); VBG PO2 21 mmHg (25-50)
[2017-10-08] MEDS ORDERED: *HR* Metoprolol 5 MG/5 ML VIAL IVP ONE ×2 (17:06→20:11)
[2017-10-08 17:07] LABS: Eosinophils % 0.4 %; Mean Platelet Volume 10.2 fL (9.4-12.4); Platelet Count 207 K/mcL (140-400)
[2017-10-08] MEDS ORDERED: *HR* Dextrose 50 % in Water (Syg) 50 ML SYRINGE ONE (17:07)
[2017-10-08] MEDS ORDERED: D10% in Water 500 ML IVC ONE (17:07)
[2017-10-08 17:08] LABS: Basophils % 0.3 %; Hematocrit 31.3 % (37.5-50.1); Hemoglobin 9.4 g/dL (12.9-16.9); Immature Granulocytes % 0.5 % (0-4); Lymphocytes # 0.9 K/mcL (0.6-4.6); Lymphocytes % 8.5 %; Mean Corpuscular Hemoglobin 29.2 pg (28.0-33.3); Mean Corpuscular Volume 97.2 fL (83.0-100.0); Monocytes # 0.7 K/mcL (0.0-1.3); Red Blood Count 3.22 M/mcL (4.19-5.50); Red Cell Distribution Width 19.2 % (11.5-14.5); Segmented Neutrophils % 84.3 %
[2017-10-08 17:11] LABS: Neutrophils # 9.4 K/mcL (1.6-8.9)
[2017-10-08] MEDS ORDERED: Naloxone 0.4 MG/ML INJ IVP PRN (17:23)
[2017-10-08 17:30] LABS: Anisocytosis 1+ (Not Present); Platelet Estimate Normal (Normal)
--- NOTE | 2017-10-08 17:49 | Internal Med History&Physical ---
Date of Encounter: 10/08/17 Time of Encounter: 16:00 Assessment and Plan (1) Acute and chronic respiratory failure ([id number]) Current visit: No Status: Acute -Suspect secondary to volume overload due to missing hemodialysis for end-stage renal disease. -Patient experienced respiratory distress on the floor and was given IV Lasix and placed on BiPAP which improved his symptoms. Qualifiers: Respiratory failure complication: hypoxia Qualified Code(s): J96.21 - Acute and chronic respiratory failure with hypoxia (2) Acute on chronic renal failure Current visit: No Status: Acute -Secondary to missing hemodialysis appointment. -Discussed with nephrology who has been consulted and patient will go for hemodialysis today. Qualifiers: Acute renal failure type: unspecified Chronic kidney disease stage: on chronic dialysis Qualified Code(s): N17.9 - Acute kidney failure, unspecified ; N18.9 - Chronic kidney disease, unspecified; N18.9 - Chronic kidney disease, unspecified; Z99.2 - Dependence on renal dialysis; Z99.2 - Dependence on renal dialysis; Z99.2 - Dependence on renal dialysis; Z99.2 - Dependence on renal dialysis (3) Atrial fibrillation with RVR Current visit: Yes Status: Acute -Suspect secondary to not taking his Cardizem today in addition to respiratory distress due to volume overload from missing hemodialysis. -Patient was given a Cardizem bolus in addition to IV Lopressor. -We will continue to monitor on telemetry. (4) GERD (gastroesophageal reflux disease) Current visit: No Status: Chronic -Continue home medications. Qualifiers: Esophagitis presence: without esophagitis Qualified Code(s): K21.9 - Gastro -esophageal reflux disease without esophagitis (5) HTN (hypertension) Current visit: No Status: Chronic -Continue home medications. Qualifiers: Hypertension type: essential hypertension Qualified Code(s): I10 - Essential (primary) hypertension (6) HLD (hyperlipidemia) Current visit: No Status: Chronic -Continue home medications. Qualifiers: Hyperlipidemia type: mixed hyperlipidemia Qualified Code(s): E78.2 - Mixed hyperlipidemia (7) Non-insulin dependent type 2 diabetes mellitus Current visit: No Status: Chronic -Patient was hypoglycemic and had to be given IV dextrose. -Hold diabetic medications at this time and monitor blood glucose. (8) DVT prophylaxis Current visit: No Status: Resolved -Subcutaneous heparin Internal Medicine - H&P: HPI Chief complaint: Short of breath Admitted From: Home Plans for Post Hospital Care: Home History of present illness: Patient is a 61-year-old male with past medical history significant for end- stage renal disease on dialysis, anemia of chronic disease, atrial fibrillation , COPD and hypertension who presents as a direct admit from [facility] due to shortness of breath secondary to missing dialysis treatment. Patient reports that he was recently ill and missed his last dialysis treatment. Patient reports now of a 1 day onset of shortness of breath and decreased by mouth intake so he decided to go to the ER for evaluation. Patient is accepted as a direct admit from [facility] to the medical surgical floor for management of end-stage renal disease on hemodialysis. Past Med Surg Social Fam HX - Past Medical History Medical history: arthritis, cancer, CHF, coronary artery disease, diabetes, dialysis, GERD, hyperlipidemia, hypertension, myocardial infarction, peripheral artery disease, renal disease, other Psychiatric history: anxiety, depression - Past Surgical History Surgical History: angioplasty/stent, carotid endarterectomy, coronary bypass ( CABG), orthopedic, other, other - Social History Smoking Status: Former smoker Smokeless Tobacco Status: No (does not smoke) Alcohol use: none Drug use: none - Family History Brother Adopted: No Family Member Ethnicity: Non- Living Status: Hx Family Cardiac Disorders: Yes Hx Family Respiratory Disorders: Yes (dad black lung) Hx Family Cancer: Yes (mother) Hx Family GI Disorders: No Hx Family Endocrine Disorder: Yes (sister) Hx Family Neuromuscular Disorders: No Hx Family Neurologic Disorders: No Hx Family HEENT Disorders: No Hx Family Autoimmune Disorders: No Sister Family Member Ethnicity: Non- Living Status: Still Living Hx Family Cardiac Disorders: Yes (HD) Hx Family Respiratory Disorders: Yes (COPD) Hx Family Endocrine Disorder: Yes (Thyroid disease) Mother Adopted: No Family Member Ethnicity: Non- Living Status: Hx Family Cardiac Disorders: No Hx Family Respiratory Disorders: No Hx Family Cancer: Yes Hx Family GI Disorders: No Hx Family Endocrine Disorder: No Hx Family Neuromuscular Disorders: No Hx Family Neurologic Disorders: No Hx Family HEENT Disorders: No Hx Family Autoimmune Disorders: No Father Adopted: No Family Member Ethnicity: Non- Living Status: Hx Family Cardiac Disorders: No Hx Family Respiratory Disorders: Yes Hx Family Cancer: No Hx Family GI Disorders: No Hx Family Endocrine Disorder: No Hx Family Neuromuscular Disorders: No Hx Family Neurologic Disorders: No Hx Family HEENT Disorders: No Hx Family Autoimmune Disorders: No Internal Medicine - H&P: Meds Famotidine [Pepcid] 10 mg PO BID #60 tablet 07/03/15 [Rx] Albuterol Sulfate [Albuterol Inhaler] 2 puff IH Q4HR 07/29/15 [History] Budesonide/Formoterol 160/4.5 [Symbicort] 2 puff IH BIDR 07/29/15 [History] Gabapentin [Neurontin] 100 mg PO TID 07/29/15 [History] Glimepiride [Amaryl] 2 mg PO DAILY 07/29/15 [History] Calcium Acetate [Phos-LO] 667 mg PO TIDWM #90 capsule 10/02/15 [Rx] Carvedilol [Coreg] 25 mg PO BID #60 tablet 10/02/15 [Rx] Furosemide [Lasix] 40 mg PO DAILY 08/31/16 [History] Oxygen 2 l NS AD 08/31/16 [History] Albuterol Neb [Proventil Neb] 2.5 mg IH Q4HR PRN #30 vial.neb 09/03/16 [Rx] Multivitamin [Multivitamins] 1 cap PO DAILY 11/03/16 [History] Magic Mouthwash [Magic Mouthwash BLM] 10 ml PO QID PRN #240 ml 12/18/16 [Rx] Docusate [Colace] 100 mg PO DAILY #20 capsule 03/02/17 [Rx] Megestrol Acetate [Megace] 800 mg PO DAILY #400 mls 04/12/17 [Rx] Linezolid [Zyvox] 600 mg PO BID #11 tablet 09/06/17 [Rx] Acetylcysteine 20% 600 mg PO BID #60 syringe 09/07/17 [Rx] Atorvastatin [Lipitor] 40 mg PO HS #30 tablet 09/07/17 [Rx] Diltiazem CD (24hr) [Cardizem CD] 240 mg PO DAILY #30 cap.er.24h 09/07/17 [Rx] GuaiFENesin ER [Mucinex] 600 mg PO BID #60 tbbp.12hr 09/07/17 [Rx] Levalbuterol Neb [Xopenex Neb] 1.25 mg IH Q6H PRN #60 vial.neb 09/07/17 [Rx] Lidocaine/Prilocaine CREAM [Emla] 1 gm TP DAILY PRN tube 09/07/17 [Rx] Linezolid [Zyvox] 600 mg PO BID tablet 09/07/17 [Rx] Ondansetron [Zofran ODT] 8 mg SL Q4HR PRN #60 tab.rapdis 09/07/17 [Rx] Oxycodone HCl [Roxicodone 30 MG Immed Release] 15 mg PO Q8H PRN #90 tab [Rx] Warfarin [Coumadin] 2.5 mg PO 1800 #5 tablet 09/07/17 [Rx] predniSONE [PredniSONE] See Taper PO DAILY #16 tablet 09/07/17 [Rx] OxyCODONE Immed Rel [Roxicodone 15 MG] 15 mg PO Q8HR PRN #90 tablet 09/24/17 [Rx ] 3 Allergy/AdvReac Type Severity Reaction Status Date / Time pollen extracts Allergy Itching Verified 05/18/17 12:12 shellfish derived AdvReac Nausea Verified 05/18/17 12:12 IVP DYE Allergy Intermediate Vomiting Uncoded 01/20/17 23:57 All Systems PM: A 10-system review of systems was performed and is negative for pertinent findings except as documented above in the HPI. - Constitutional Vitals: Temp Pulse Resp BP Pulse Ox 98.2 F 125 18 152/85 98 10/08/17 16:17 10/08/17 16:17 10/08/17 16:45 10/08/17 16:17 10/08/17 16:45 General appearance: Present: mild distress, A&O X 3 - Head Head exam: Present: normocephalic - Eye Eye exam: Present: normal appearance - ENT ENT exam: Present: mucous membranes dry - Respiratory Respiratory exam: Present: CTAB. Absent: accessory muscle use, rales, rhonchi, wheezes - Cardiovascular Cardiovascular exam: Present: RRR, +S1, +S2. Absent: diastolic murmur, gallop, rubs, systolic murmur - GI/Abdominal GI/Abdominal exam: Present: normal bowel sounds, soft, no peritoneal signs. Absent: distended, tenderness - Neurological Exam Neurological exam: Present: oriented X3 - Psychiatric Psychiatric exam: Present: normal mood - Skin Skin exam: Present: normal color Internal Med - H&P Results - Labs CBC & Chem 7: 10/08/17 15:50 Labs: Short CBC 10/08/17 Range/Units 15:50 WBC 11.1 (4.3-11.1) K/mcL Hgb 9.4 L (12.9-16.9) g/dL Hct 31.3 L (37.5-50.1) % Plt Count 207 (140-400) K/mcL Neutrophils # 9.4 H (1.6-8.9) K/mcL - ABG Interpretation ABG results: 10/08/17 16:49 VBG pH 7.37 VBG pCO2 45 VBG pO2 21 L VBG HCO3 26
--- NOTE | 2017-10-08 18:08 | Nephrology Consult Note ---
Date of Encounter: 10/08/17 Time of Encounter: 17:45 Assessment and Plan (1) Shortness of breath Status: Acute likely multifactorial with possible volume overload, history of COPD, mallory cancer and recurrent PNAs in the past HD should resolved volume component (2) ESRD (end stage renal disease) on dialysis Status: Chronic Urgent HD planned today, Pt seen at HD unit UF planned with goal of 3-4kg as tolerated Fluid restriction advised Strict I/Os (3) Anemia Status: Acute Noted, likely chronic due to ESRD. EPO if needed Qualifiers: Anemia type: due to chronic kidney disease Chronic kidney disease stage: on chronic dialysis Qualified Code(s): N18.6 - End stage renal disease; D63.1 - Anemia in chronic kidney disease; D63.1 - Anemia in chronic kidney disease; Z99.2 - Dependence on renal dialysis; Z99.2 - Dependence on renal dialysis; Z99.2 - Dependence on renal dialysis; Z99.2 - Dependence on renal dialysis (4) Hyperkalemia Status: Acute Likely from dietary consumption with ESRD. should improve after HD with reduced potassium bath Renal diet advised History of Present Illness - Reason for Consult Consult date: 10/08/17 end stage renal disease Requesting physician: Bradley Sanchez Jennifer - History of Present Illness 61 y o male with PMH of ESRD on HD M-W-F, COPD, recurrent PNA, lung Ca admitted as a transfer from [facility] where he presented feeling "sick". He reports missing HD on sunday due to being "sick". He was noted in afib requiring cardizem and metoprolol prior to coming to HD unit. He was also hypoglycemic per nurse and received 3 cups of OJ and a sandwich. Pt seen and examined at HD unit with complaint of SOB and LE edema. No chest pain. No wheezes Past Med Surg Social Fam HX - Past Medical History Medical history: arthritis, cancer, CHF, coronary artery disease, diabetes, dialysis, GERD, hyperlipidemia, hypertension, myocardial infarction, peripheral artery disease, renal disease, other Psychiatric history: anxiety, depression - Past Surgical History Surgical History: angioplasty/stent, carotid endarterectomy, coronary bypass ( CABG), orthopedic, other, other - Social History Smoking Status: Former smoker Smokeless Tobacco Status: No (does not smoke) Alcohol use: none Drug use: none - Family History Brother Adopted: No Family Member Ethnicity: Non- Living Status: Hx Family Cardiac Disorders: Yes Hx Family Respiratory Disorders: Yes (dad black lung) Hx Family Cancer: Yes (mother) Hx Family GI Disorders: No Hx Family Endocrine Disorder: Yes (sister) Hx Family Neuromuscular Disorders: No Hx Family Neurologic Disorders: No Hx Family HEENT Disorders: No Hx Family Autoimmune Disorders: No Sister Family Member Ethnicity: Non- Living Status: Still Living Hx Family Cardiac Disorders: Yes (HD) Hx Family Respiratory Disorders: Yes (COPD) Hx Family Endocrine Disorder: Yes (Thyroid disease) Mother Adopted: No Family Member Ethnicity: Non- Living Status: Hx Family Cardiac Disorders: No Hx Family Respiratory Disorders: No Hx Family Cancer: Yes Hx Family GI Disorders: No Hx Family Endocrine Disorder: No Hx Family Neuromuscular Disorders: No Hx Family Neurologic Disorders: No Hx Family HEENT Disorders: No Hx Family Autoimmune Disorders: No Father Adopted: No Family Member Ethnicity: Non- Living Status: Hx Family Cardiac Disorders: No Hx Family Respiratory Disorders: Yes Hx Family Cancer: No Hx Family GI Disorders: No Hx Family Endocrine Disorder: No Hx Family Neuromuscular Disorders: No Hx Family Neurologic Disorders: No Hx Family HEENT Disorders: No Hx Family Autoimmune Disorders: No Medications and Allergies Famotidine [Pepcid] 10 mg PO BID #60 tablet 07/03/15 [Rx] Albuterol Sulfate [Albuterol Inhaler] 2 puff IH Q4HR 07/29/15 [History] Budesonide/Formoterol 160/4.5 [Symbicort] 2 puff IH BIDR 07/29/15 [History] Gabapentin [Neurontin] 100 mg PO TID 07/29/15 [History] Calcium Acetate [Phos-LO] 667 mg PO TIDWM #90 capsule 10/02/15 [Rx] Furosemide [Lasix] 40 mg PO DAILY 08/31/16 [History] Oxygen 2.5 l NS AD 08/31/16 [History] Albuterol Neb [Proventil Neb] 2.5 mg IH Q4HR PRN #30 vial.neb 09/03/16 [Rx] Multivitamin [Multivitamins] 1 cap PO DAILY 11/03/16 [History] Magic Mouthwash [Magic Mouthwash BLM] 10 ml PO QID PRN #240 ml 12/18/16 [Rx] Docusate [Colace] 100 mg PO DAILY #20 capsule 03/02/17 [Rx] Megestrol Acetate [Megace] 800 mg PO DAILY #400 mls 04/12/17 [Rx] Acetylcysteine 20% 600 mg PO BID #60 syringe 09/07/17 [Rx] Atorvastatin [Lipitor] 40 mg PO HS #30 tablet 09/07/17 [Rx] Levalbuterol Neb [Xopenex Neb] 1.25 mg IH Q6H PRN #60 vial.neb 09/07/17 [Rx] Lidocaine/Prilocaine CREAM [Emla] 1 gm TP DAILY PRN tube 09/07/17 [Rx] Ondansetron [Zofran ODT] 8 mg SL Q4HR PRN #60 tab.rapdis 09/07/17 [Rx] Warfarin [Coumadin] 2.5 mg PO 1800 #5 tablet 09/07/17 [Rx] OxyCODONE Immed Rel [Roxicodone 15 MG] 15 mg PO Q8HR PRN #90 tablet 09/24/17 [Rx ] Budesonide/Formoterol 160/4.5 [Symbicort 160/4.5] 1 puff IH BIDR #1 hfa.aer.ad 10/10/17 [Rx] Doxycycline 100 mg PO BID #14 capsule 10/11/17 [Rx] 3 Allergy/AdvReac Type Severity Reaction Status Date / Time pollen extracts Allergy Itching Verified 10/11/17 13:38 shellfish derived AdvReac Nausea Verified 10/11/17 13:38 IVP DYE Allergy Intermediate Vomiting Uncoded 10/11/17 13:38 Review of Systems All Systems: reviewed and no additional remarkable complaints except as stated ( 10 system reviewed) Exam - Vital Signs Vital signs: Initial Vital Signs Temp Pulse Resp BP Pulse Ox 97.5 F L 106 17 94/58 93 10/08/17 13:29 10/08/17 13:29 10/08/17 13:29 10/08/17 13:29 10/08/17 13:29 Vital Signs - Last 8 Hours Temp Pulse Resp BP Pulse Ox 10/08/17 16:45 18 98 10/08/17 16:17 98.2 F 125 17 152/85 91 10/08/17 13:29 97.5 F L 106 17 94/58 93 Intake and Output 12/11/17 12/11/17 12/11/17 07:59 15:59 23:59 Other: Weight 63.248 kg Blood Glucose* 88 62 Patient Weight 10/08/17 23:59 Weight 63.248 kg - General Appearance General appearance: chronically ill, frail EENT: ATNC, mucous membranes moist Neck: no JVD, supple Cardiology: edema (LE bilat), irregular rhythm, normal S1, normal S2 - Dialysis Access Dialysis Vascular Access: Arteriovenous Fistula thrill: Yes bruit: Yes Gastrointestinal: no tenderness, no guarding Integumentary: warm and dry Neurologic: no focal deficit Musculoskeletal: no deformities Psychiatric: mood/affect appropriate, cooperative Results - Lab Results 10/10/17 04:40 10/10/17 04:40 Consult Discharge Plan - Plan Instructions: Atrial Fibrillation (DC), Diabetes Mellitus Type 2 in Adults (DC) , Anemia (GEN) Referrals: Jeromy Wall MD [Primary Care Provider] - 10/16/17 3:00 pm (Please follow up as schedule...) Prescriptions: Budesonide/Formoterol 160/4.5 [Symbicort 160/4.5] 1 puff IH BIDR #1 hfa.aer.ad
[2017-10-08] MEDS ORDERED: Albumin 25% 25gram/100mL 25 GM/100 ML IV.SOLN IVPB ONE (18:36)
[2017-10-08] MEDS ORDERED: Albumin 25% 12.5gm/50mL 25.0 GM/100 ML IV.SOLN ONE (18:41)
[2017-10-08 18:55] LABS: Calcium 8.7 mg/dL (8.6-10.8); Potassium 5.1 mEq/L (3.5-4.5)
[2017-10-08 19:03] LABS: Hepatitis B Surface Antibody 0.33 mIU/mL; Hepatitis B Surface Antigen Nonreactive (Nonreactive)
[2017-10-08] MEDS ORDERED: 0.9 % Sodium Chloride 2,000 ML ONE (19:53)
[2017-10-08] MEDS ORDERED: Diltiazem CD (24hr) 240 MG CAPSULE PO ONE (23:55)
[2017-10-09] MEDS ORDERED: *HR* HYDROcodone/Acet 5/325 mg TABLET PO PRN (00:15)
[2017-10-09 03:33] LABS: Hematocrit 28.4 % (37.5-50.1); Hemoglobin 8.7 g/dL (12.9-16.9); Mean Corpuscular HGB Conc 30.6 g/dL (31.6-35.5); Mean Corpuscular Hemoglobin 29.2 pg (28.0-33.3); Mean Corpuscular Volume 95.3 fL (83.0-100.0); Mean Platelet Volume 9.6 fL (9.4-12.4); Platelet Count 172 K/mcL (140-400); Red Blood Count 2.98 M/mcL (4.19-5.50); Red Cell Distribution Width 18.9 % (11.5-14.5)
[2017-10-09 03:48] LABS: Calcium 8.8 mg/dL (8.6-10.8); Potassium 5.5 mEq/L (3.5-4.5)
[2017-10-09] MEDS: *HR* Heparin 5,000 UNIT/ML VIAL SQ SCH ×2 (05:13→16:46)
--- NOTE | 2017-10-09 07:57 | Internal Med Progress Note ---
<Nando Sumner - Last Filed: 10/09/17 07:39> Date of Encounter: 10/09/17 Time of Encounter: 07:15 - Assessment and plan (1) Shortness of breath Current Visit: Yes Status: Acute Assessment and plan: Patient presented with SOB, possibly due to volume overload due to missing HD. CXR on 10/08/17: Demonstrated chronic ILD with progressive L mid lung edema versus PNA. Placed on BiPAP, given IV Lasix 40 mg IV; patient's symptoms improved. Patient denies having any respiratory distress or shortness of breath this morning; currently on O2 via NC. Patient is 3 L of oxygen at home. Plan: -Nephrology has been consulted; patient scheduled for HD today. -O2 via NC. -Continuous telemetry -Vital sign assessment Q4. (2) Acute on chronic renal failure Current Visit: No Status: Acute Assessment and plan: Patient developed acute on chronic renal failure. Likely due to missing HD treatment Creatinine on presentation was 4.43. Has since decreased to 2.3. Plan: -Nephrology on board; HD today. -Renal diet. -IV fluids. Qualifiers: Acute renal failure type: unspecified Chronic kidney disease stage: on chronic dialysis Qualified Code(s): N17.9 - Acute kidney failure, unspecified ; N18.9 - Chronic kidney disease, unspecified; N18.9 - Chronic kidney disease, unspecified; Z99.2 - Dependence on renal dialysis; Z99.2 - Dependence on renal dialysis; Z99.2 - Dependence on renal dialysis; Z99.2 - Dependence on renal dialysis (3) Atrial fibrillation with RVR Current Visit: Yes Status: Acute Assessment and plan: On presentation, patient was noted to be in atrial fibrillation with RVR Possibly due to not taking his Cardizem in addition to his respiratory distress. Heart rate on presentation was 106. Patient was given Cardizem bolus of 10 mg IV and Lopressor IV 5 mg. Heart rate this morning was 78 bpm. Plan: -Continuous telemetry. (4) Non-insulin dependent type 2 diabetes mellitus Current Visit: No Status: Chronic Assessment and plan: Glucose morning was 110. Glucose measurements Q6. (5) DVT prophylaxis Current Visit: No Status: Acute Assessment and plan: Heparin 5000 subcutaneous every 12. - Subjective Interval history: Mr. Guardado is a 61-year-old male who presented on 10/08/17 as a direct admit from [place] [facility] with chief complaint of SOB. Patient reported that he had recently been ill and missed his last dialysis treatment on Sunday. Patient is normally a M-W-F HD patient. Patient had SOB x 1 day with decreased oral intake. Presented in respiratory distress. CXR on 10/08/17 demonstrated chronic ILD with progressive L mid lung edema vs PNA. Patient was admitted for acute on chronic respiratory failure, likely secondary to volume overload due to missing hemodialysis. Was placed on BiPAP and given IV Lasix 40 mg IV, both of which improved his symptoms. Patient also developed acute on chronic renal failure, secondary to missing his hemodialysis treatment. Creatinine on presentation was 4.43. On 10/09/17, patient's creatinine is 2.3. Nephrology has been consulted; patient will go in for hemodialysis today. Patient was also noted to be in atrial fibrillation with RVR; this was possibly due to not taking his Cardizem in addition to his respiratory distress. Heart rate on presentation was 106. Patient was given a Cardizem bolus of 10 mg IV and IV Lopressor 5 mg. He is kept on continuous telemetry. On presentation, patient was hypoglycemic and had to be given IV dextrose. He also received 3 cups of orange juice and a sandwich. Glucose on 10/08/17 was 39. Patient's glucose on 10/09/17 was 110. Patient's past medical history includes ESRD on dialysis, anemia of chronic disease, atrial fibrillation, COPD, and hypertension. Patient was seen and examined at bedside this morning. He is resting comfortably in bed without respiratory distress. He reports feeling better than when he initially came into the hospital. He admits to having a cough, but no fever, chills, shortness of breath, or chest pain. He is currently on oxygen via nasal cannula. - Constitutional Vitals: Temp Pulse Resp BP Pulse Ox 97.8 F 78 16 100/61 98 10/09/17 05:16 10/09/17 05:16 10/09/17 05:16 10/09/17 05:16 10/09/17 05:16 General appearance: Present: mild distress, A&O X 3 - Head Head exam: Present: atraumatic, normocephalic - Eye Eye exam: Present: PERRL, conjuntiva pink, sclera anicteric Pupils: Present: PERRL - Neck Neck exam general surgery: Present: supple, trachea midline. Absent: lymphadenopathy - Respiratory Respiratory exam: Present: decreased breath sounds, prolonged expiratory phase. Absent: accessory muscle use, rales, rhonchi, wheezes - Cardiovascular Cardiovascular exam: Present: +S1, +S2. Absent: gallop, JVD, rubs - GI/Abdominal GI/Abdominal exam: Present: normal bowel sounds, soft, no peritoneal signs. Absent: distended, tenderness - Extremities Exam Extremities exam: Present: warm, radial pulses palpable and symmetrical. Absent : calf tenderness, cyanotic, pedal edema - Skin Skin exam: Present: dry, intact Internal Medicine: Result - Labs CBC & Chem 7: 10/09/17 03:24 10/09/17 03:24 Labs: Short CBC 10/08/17 10/09/17 Range/Units 15:50 03:24 WBC 11.1 10.6 (4.3-11.1) K/mcL Hgb 9.4 L 8.7 L (12.9-16.9) g/dL Hct 31.3 L 28.4 L (37.5-50.1) % Plt Count 207 172 (140-400) K/mcL Neutrophils # 9.4 H (1.6-8.9) K/mcL BMP 10/08/17 10/09/17 15:50 03:24 Sodium 139 137 Potassium 5.1 H D 5.5 H Chloride 101 100 Carbon Dioxide 25 24 BUN 64 H 33 H D Creatinine 4.43 H 2.83 H Glucose 39 L* 110 H Calcium 8.7 8.8 - Impressions Impressions Chest X-Ray 10/08/17 17:20 IMPRESSION: Chronic interstitial lung disease with progressive left midlung edema versus pneumonia. D/ / Abdi Ramirez MD / Abdi Ramirez MD Interpreting Provider: Abdi Ramirez MD Consult Discharge Plan - Plan Referrals: Jeromy Wall MD [Primary Care Provider] - 10/16/17 3:00 pm (Please follow up as schedule...) <Chente Burton H - Last Filed: 10/09/17 13:22> Date of Encounter: 10/09/17 - Constitutional Vitals: Temp Pulse Resp BP Pulse Ox 97.4 F L 77 16 102/52 97 10/09/17 12:10 10/09/17 12:10 10/09/17 12:24 10/09/17 12:10 10/09/17 12:24 Internal Medicine: Result - Labs CBC & Chem 7: 10/09/17 03:24 10/09/17 03:24 Labs: Short CBC 10/08/17 10/09/17 Range/Units 15:50 03:24 WBC 11.1 10.6 (4.3-11.1) K/mcL Hgb 9.4 L 8.7 L (12.9-16.9) g/dL Hct 31.3 L 28.4 L (37.5-50.1) % Plt Count 207 172 (140-400) K/mcL Neutrophils # 9.4 H (1.6-8.9) K/mcL BMP 10/08/17 10/09/17 15:50 03:24 Sodium 139 137 Potassium 5.1 H D 5.5 H Chloride 101 100 Carbon Dioxide 25 24 BUN 64 H 33 H D Creatinine 4.43 H 2.83 H Glucose 39 L* 110 H Calcium 8.7 8.8 - Impressions Impressions Chest X-Ray 10/08/17 17:20 IMPRESSION: Chronic interstitial lung disease with progressive left midlung edema versus pneumonia. D/ / Abdi Ramirez MD / Abdi Ramirez MD Interpreting Provider: Abdi Ramirez MD - Attending Attestation acute hypoxic resp failure secondary to volume overload/ noncompliance with dialysis HD tomorrow Hyperkalemia kayaxelate hypoglycemia, discontinue glimepiride permanently I examined this patient and my medical decision-making was reviewed with the Resident Physician. I agree with the documented findings, disposition and treatment plan as described except to the extent set forth below.
[2017-10-09] MEDS ORDERED: Diltiazem CD (24hr) 240 MG CAPSULE PO SCH ×2 (09:15→17:00)
[2017-10-09] MEDS ORDERED: Dextrose Gel 15 GM PO PRN ×2 (09:26)
[2017-10-09] MEDS ORDERED: *HR* Dextrose 50 % in Water (Syg) 50 ML SYRINGE IVP PRN (09:26)
[2017-10-09] MEDS ORDERED: D5% in Water 1,000 ML IVC PRN (09:26)
--- NOTE | 2017-10-09 11:43 | Electrocardiograph Report ---
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
[2017-10-09] MEDS: Calcium Acetate 667 MG CAPSULE PO SCH ×2 (12:16→16:39)
[2017-10-09] MEDS: Insulin LISPRO 300 UNITS/3 ML VIAL SQ SCH ×2 (12:16→16:40)
--- NOTE | 2017-10-09 12:17 | Nephrology Progress Note ---
Date of Encounter: 10/09/17 Time of Encounter: 10:30 - Assessment and Plan (1) ESRD (end stage renal disease) on dialysis Current Visit: No Status: Acute s/p HD yesterday with significant UF of 4kg Next HD planned tomorrow Renal diet advised (2) Hyperkalemia Current Visit: No Status: Acute Potassium noted at 5.5 likely due to orange juice given by nursing staff for hypoglycemia! Renal diet advised once more Subjective Interval history: Pt seen and examined sitting in bed with complaint of SOB, awaiting nebs. s/p HD yesterday evening with 4kg fluids removed Objective - Vital Signs Vital signs: Vital Signs Temp Pulse Resp BP Pulse Ox 10/09/17 08:35 98 10/09/17 08:07 98.0 F 74 16 113/62 98 10/09/17 05:16 97.8 F 78 16 100/61 98 10/09/17 01:18 98.3 F 110 16 99/67 97 10/08/17 22:03 98 10/08/17 21:10 98.2 F 17 114/52 10/08/17 21:00 107/53 10/08/17 20:30 99/57 10/08/17 20:00 116/51 10/08/17 19:30 119/68 10/08/17 19:00 104/66 10/08/17 18:30 90/45 10/08/17 18:00 98.2 F 22 106/54 10/08/17 16:45 18 98 10/08/17 16:17 98.2 F 125 17 152/85 91 10/08/17 13:29 97.5 F L 106 17 94/58 93 Intake and Output 10/08/17 10/09/17 10/09/17 23:59 07:59 15:59 Intake Total 600 / 600 Output Total 4775 / 4775 150 / 150 Balance -4175 / -4175 -150 / -150 Intake: Oral 0 / 0 Intake, Rinseback and Flushes 600 / 600 Output: Urine 175 / 175 150 / 150 Total Dialysis (HD) Output 4600 / 4600 Other: Blood Glucose* 121 84 Hemodialysis Net Fluid Removed 4000 (mL) - General Appearance General appearance: Present: chronically ill, frail EENT: Present: ATNC, mucous membranes moist Neck: Present: no JVD, supple Additional Comments: good areation bilat Cardiology: Present: no edema, normal S1, normal S2 Dialysis Vascular Access: Arteriovenous Fistula thrill: Yes bruit: Yes Gastrointestinal: Present: no guarding Integumentary: Present: warm and dry Neurologic: Present: no focal deficit Musculoskeletal: Present: no deformities Psychiatric: Present: mood/affect appropriate, cooperative - Lab 10/09/17 03:24 10/09/17 03:24 Most recent lab results Calcium 8.8 mg/dL (8.6-10.8) 10/09/17 03:24 Consult Discharge Plan - Plan Referrals: Jeromy Wall MD [Primary Care Provider] - 10/16/17 3:00 pm (Please follow up as schedule...)
[2017-10-09] MEDS: Levalbuterol Neb 1.25 MG/3 ML IH PRN ×2 (12:19→23:09)
[2017-10-09 14:21] LABS: INR 1.7; Prothrombin Time 18.8 Seconds (9.4-12.1)
[2017-10-09] MEDS: *HR* OxyCODONE Immed Rel 15 MG TABLET PO PRN ×2 (14:27→23:59)
[2017-10-09] MEDS ORDERED: Warfarin perPT PO PRN (18:00)
[2017-10-09] MEDS ORDERED: *HR* Warfarin 2.5 MG TABLET PO ONE (18:00)
[2017-10-09] MEDS ORDERED: Insulin LISPRO 300 UNITS/3 ML VIAL SQ SCH (21:00)
[2017-10-09] MEDS: Budesonide/Formoterol 160/4.5 MDI IH SCH (23:09)
[2017-10-09] MEDS ORDERED: Diltiazem CD (24hr) 240 MG CAPSULE PO ONE (23:17)
[2017-10-10 05:12] LABS: Hemoglobin 8.4 g/dL (12.9-16.9); Mean Corpuscular Hemoglobin 28.8 pg (28.0-33.3); Mean Corpuscular Volume 95.9 fL (83.0-100.0); Mean Platelet Volume 10.6 fL (9.4-12.4); Platelet Count 200 K/mcL (140-400); Red Blood Count 2.92 M/mcL (4.19-5.50); Red Cell Distribution Width 18.7 % (11.5-14.5)
[2017-10-10] MEDS: *HR* Heparin 5,000 UNIT/ML VIAL SQ SCH (05:15)
[2017-10-10 05:23] LABS: INR 1.5; Prothrombin Time 15.9 Seconds (9.4-12.1)
[2017-10-10 05:28] LABS: Calcium 8.3 mg/dL (8.6-10.8)
[2017-10-10 05:29] LABS: Potassium 4.1 mEq/L (3.5-4.5)
[2017-10-10] MEDS ORDERED: 0.9 % Sodium Chloride 250 ML IVC PRN (07:34)
[2017-10-10] MEDS: Calcium Acetate 667 MG CAPSULE PO SCH ×2 (07:47→12:32)
[2017-10-10] MEDS: *HR* OxyCODONE Immed Rel 15 MG TABLET PO PRN (07:48)
[2017-10-10] MEDS ORDERED: predniSONE 20 MG TABLET PO SCH (09:00)
[2017-10-10] MEDS ORDERED: Furosemide 40 MG TABLET PO SCH (09:00)
[2017-10-10] MEDS: Budesonide/Formoterol 160/4.5 MDI IH SCH (10:21)
--- NOTE | 2017-10-10 11:23 | Internal Med Progress Note ---
Date of Encounter: 10/10/17 Time of Encounter: 11:30 - Assessment and plan (1) Shortness of breath Current Visit: Yes Status: Acute Assessment and plan: Patient presented with SOB, possibly due to volume overload due to missing HD. CXR on 10/08/17: Demonstrated chronic ILD with progressive L mid lung edema versus PNA. Placed on BiPAP, given IV Lasix 40 mg IV; patient's symptoms improved. Patient denies having any respiratory distress or shortness of breath this morning; currently on O2 via NC. Patient is 3 L of oxygen at home. Plan: -Nephrology has been consulted; received dialysis today -O2 via NC. -Continuous telemetry -Vital sign assessment Q4. (2) Acute on chronic renal failure Current Visit: No Status: Acute Assessment and plan: Patient developed acute on chronic renal failure. Likely due to missing HD treatment Creatinine on presentation was 4.43. Has since decreased to 4.07. Plan: -Nephrology on board; received dialysis today. -Renal diet. -IV fluids. Qualifiers: Acute renal failure type: unspecified Chronic kidney disease stage: on chronic dialysis Qualified Code(s): N17.9 - Acute kidney failure, unspecified ; N18.9 - Chronic kidney disease, unspecified; N18.9 - Chronic kidney disease, unspecified; Z99.2 - Dependence on renal dialysis; Z99.2 - Dependence on renal dialysis; Z99.2 - Dependence on renal dialysis; Z99.2 - Dependence on renal dialysis (3) Atrial fibrillation with RVR Current Visit: Yes Status: Acute Assessment and plan: On presentation, patient was noted to be in atrial fibrillation with RVR Possibly due to not taking his Cardizem in addition to his respiratory distress. Heart rate on presentation was 106. Patient was given Cardizem bolus of 10 mg IV and Lopressor IV 5 mg. Heart rate this morning was 85 bpm. Plan: -Continuous telemetry. (4) Non-insulin dependent type 2 diabetes mellitus Current Visit: No Status: Chronic Assessment and plan: Glucose this morning was 121. Glucose measurements Q6. (5) DVT prophylaxis Current Visit: No Status: Acute Assessment and plan: Heparin 5000 subcutaneous every 12. - Subjective Interval history: Patient seen and examined in dialysis this morning. Patient had just finished dialysis without compression. He states that his breathing has improved. Currently on oxygen via nasal cannula. Denies wheezing, cough, shortness of breath, fever, chills, or chest pain. He is resting in bed comfortably with no complaints at this time. - Constitutional Vitals: Temp Pulse Resp BP Pulse Ox 98.4 F 85 15 131/65 92 10/10/17 08:15 10/10/17 03:30 10/10/17 08:15 10/10/17 10:30 10/10/17 03:30 General appearance: Present: mild distress, A&O X 3 - Head Head exam: Present: atraumatic, normocephalic - Eye Eye exam: Present: PERRL, conjuntiva pink, sclera anicteric Pupils: Present: PERRL - Neck Neck exam general surgery: Present: supple, trachea midline. Absent: lymphadenopathy - Respiratory Respiratory exam: Present: CTAB. Absent: accessory muscle use, rales, rhonchi, wheezes - Cardiovascular Cardiovascular exam: Present: +S1, +S2. Absent: diastolic murmur, gallop, rubs , systolic murmur - Extremities Exam Extremities exam: Present: warm, radial pulses palpable and symmetrical. Absent : calf tenderness, cyanotic, pedal edema - Skin Skin exam: Present: dry, intact Internal Medicine: Result - Labs CBC & Chem 7: 10/10/17 04:40 10/10/17 04:40 Labs: Short CBC 10/10/17 Range/Units 04:40 WBC 6.7 (4.3-11.1) K/mcL Hgb 8.4 L (12.9-16.9) g/dL Hct 28.0 L (37.5-50.1) % Plt Count 200 (140-400) K/mcL [facility] 10/10/17 04:40 Sodium 136 Potassium 4.1 D Chloride 97 L Carbon Dioxide 28 BUN 58 H D Creatinine 4.07 H Glucose 121 H Calcium 8.3 L - ABG Interpretation ABG results: PT/INR, D-dimer PT 15.9 Seconds (9.4-12.1) H 10/10/17 04:40 Consult Discharge Plan - Plan Referrals: Jeromy Wall MD [Primary Care Provider] - 10/16/17 3:00 pm (Please follow up as schedule...)
[2017-10-10] MEDS: Insulin LISPRO 300 UNITS/3 ML VIAL SQ SCH ×2 (11:31→12:32)
[2017-10-10 11:35] VITALS: BP 130/65
[2017-10-10] MEDS ORDERED: 0.9 % Sodium Chloride 2,000 ML ONE (11:54)
--- NOTE | 2017-10-10 12:44 | Nephrology Progress Note ---
Date of Encounter: 10/10/17 Time of Encounter: 11:00 - Assessment and Plan (1) ESRD (end stage renal disease) on dialysis Current Visit: No Status: Acute Continue HD with UF as tolerated Continue renal diet (2) Hyperkalemia Current Visit: No Status: Acute Potassium normalized Continue renal diet (3) Anemia Current Visit: Yes Status: Acute Hgb noted at 8.4, will monitor EPO as needed Qualifiers: Anemia type: due to chronic kidney disease Chronic kidney disease stage: on chronic dialysis Qualified Code(s): N18.6 - End stage renal disease; D63.1 - Anemia in chronic kidney disease; D63.1 - Anemia in chronic kidney disease; Z99.2 - Dependence on renal dialysis; Z99.2 - Dependence on renal dialysis; Z99.2 - Dependence on renal dialysis; Z99.2 - Dependence on renal dialysis Subjective Interval history: Pt seen and examined on HD feeling better. Objective - Vital Signs Vital signs: Vital Signs Temp Pulse Resp BP Pulse Ox 10/10/17 11:25 98.0 F 14 130/65 10/10/17 11:15 107/67 10/10/17 11:00 137/65 10/10/17 10:45 128/67 10/10/17 10:30 131/65 10/10/17 10:15 107/66 10/10/17 10:00 117/72 10/10/17 09:45 111/81 10/10/17 09:30 102/64 10/10/17 09:15 109/60 10/10/17 09:00 116/68 10/10/17 08:45 127/72 10/10/17 08:30 119/71 10/10/17 08:15 98.4 F 15 106/70 10/10/17 03:30 98.4 F 85 16 94/59 92 10/09/17 23:09 18 94 10/09/17 23:01 97.8 F 78 17 86/49 94 10/09/17 20:44 97 10/09/17 18:52 97.5 F L 72 17 93/46 99 10/09/17 15:09 97.4 F L 64 16 94/49 100 Intake and Output 10/09/17 10/10/17 10/10/17 23:59 07:59 15:59 Intake Total 240 / 240 0 / 0 600 / 600 Output Total 0 / 0 3600 / 3600 Balance 240 / 240 0 / 0 -3000 / -3000 Intake: Oral 240 / 240 0 / 0 0 / 0 Intake, Rinseback and Flushes 600 / 600 Output: Urine 0 / 0 0 / 0 Total Dialysis (HD) Output 3600 / 3600 Other: Weight 60.146 kg Blood Glucose* 85 218 Hemodialysis Net Fluid Removed 3000 (mL) Patient Weight 10/10/17 23:59 Weight 60.146 kg - General Appearance General appearance: Present: chronically ill, frail EENT: Present: ATNC, mucous membranes moist Neck: Present: no JVD, supple Additional Comments: good areation ant bilat Cardiology: Present: no edema, normal S1, normal S2 Gastrointestinal: Present: no tenderness, no guarding Integumentary: Present: warm and dry Neurologic: Present: no focal deficit Musculoskeletal: Present: no deformities Psychiatric: Present: mood/affect appropriate, cooperative - Lab 10/10/17 04:40 10/10/17 04:40 Most recent lab results Calcium 8.3 mg/dL (8.6-10.8) L 10/10/17 04:40 Consult Discharge Plan - Plan Referrals: Jeromy Wall MD [Primary Care Provider] - 10/16/17 3:00 pm (Please follow up as schedule...)
[2017-10-10] MEDS: Levalbuterol Neb 1.25 MG/3 ML IH PRN (13:56)
--- NOTE | 2017-10-10 14:39 | Discharge Summary ---
<Nando Sumner - Last Filed: 10/10/17 14:41> Date of Encounter: 10/10/17 Time of Encounter: 11:30 - Discharge Diagnosis (1) Pulmonary edema with congestive heart failure with reduced left ventricular function Priority: Primary Status: Acute (2) Acute on chronic renal failure Priority: Secondary Status: Acute Qualifiers: Acute renal failure type: unspecified Chronic kidney disease stage: on chronic dialysis Qualified Code(s): N17.9 - Acute kidney failure, unspecified ; N18.9 - Chronic kidney disease, unspecified; N18.9 - Chronic kidney disease, unspecified; Z99.2 - Dependence on renal dialysis; Z99.2 - Dependence on renal dialysis; Z99.2 - Dependence on renal dialysis; Z99.2 - Dependence on renal dialysis (3) Atrial fibrillation with RVR Priority: Secondary Status: Acute (4) Non-insulin dependent type 2 diabetes mellitus Priority: Secondary Status: Chronic (5) DVT prophylaxis Priority: Secondary Status: Acute - Discharge Medications Home Medications: Famotidine [Pepcid] 10 mg PO BID #60 tablet 07/03/15 [Rx] Albuterol Sulfate [Albuterol Inhaler] 2 puff IH Q4HR 07/29/15 [History] Budesonide/Formoterol 160/4.5 [Symbicort] 2 puff IH BIDR 07/29/15 [History] Gabapentin [Neurontin] 100 mg PO TID 07/29/15 [History] Calcium Acetate [Phos-LO] 667 mg PO TIDWM #90 capsule 10/02/15 [Rx] Carvedilol [Coreg] 25 mg PO BID #60 tablet 10/02/15 [Rx] Furosemide [Lasix] 40 mg PO DAILY 08/31/16 [History] Oxygen 2 l NS AD 08/31/16 [History] Albuterol Neb [Proventil Neb] 2.5 mg IH Q4HR PRN #30 vial.neb 09/03/16 [Rx] Multivitamin [Multivitamins] 1 cap PO DAILY 11/03/16 [History] Magic Mouthwash [Magic Mouthwash BLM] 10 ml PO QID PRN #240 ml 12/18/16 [Rx] Docusate [Colace] 100 mg PO DAILY #20 capsule 03/02/17 [Rx] Megestrol Acetate [Megace] 800 mg PO DAILY #400 mls 04/12/17 [Rx] Acetylcysteine 20% 600 mg PO BID #60 syringe 09/07/17 [Rx] Atorvastatin [Lipitor] 40 mg PO HS #30 tablet 09/07/17 [Rx] Diltiazem CD (24hr) [Cardizem CD] 240 mg PO DAILY #30 cap.er.24h 09/07/17 [Rx] GuaiFENesin ER [Mucinex] 600 mg PO BID #60 tbbp.12hr 09/07/17 [Rx] Levalbuterol Neb [Xopenex Neb] 1.25 mg IH Q6H PRN #60 vial.neb 09/07/17 [Rx] Lidocaine/Prilocaine CREAM [Emla] 1 gm TP DAILY PRN tube 09/07/17 [Rx] Ondansetron [Zofran ODT] 8 mg SL Q4HR PRN #60 tab.rapdis 09/07/17 [Rx] Warfarin [Coumadin] 2.5 mg PO 1800 #5 tablet 09/07/17 [Rx] predniSONE [PredniSONE] See Taper PO DAILY #16 tablet 09/07/17 [Rx] OxyCODONE Immed Rel [Roxicodone 15 MG] 15 mg PO Q8HR PRN #90 tablet 09/24/17 [Rx ] Allergies/Adverse Reactions: 3 Allergy/AdvReac Type Severity Reaction Status Date / Time pollen extracts Allergy Itching Verified 05/18/17 12:12 shellfish derived AdvReac Nausea Verified 05/18/17 12:12 IVP DYE Allergy Intermediate Vomiting Uncoded 01/20/17 23:57 Procedures/tests Complete & Pending: Procedures Performed prior 72 hours Category Date Time Status EKG [ECG 12 lead ECG] [ECG] Stat Y 10/08/17 17:22 Completed Date of admission: 10/08/17 12:58 Primary care physician: Jeromy Wall MD Consults: 10/08/17 15:45 Consult to Dialysis [CONS] ONCE 10/10/17 07:45 Consult to Dialysis [CONS] ONCE Discharging clinician: Nando Sumner Anticipated date of discharge: 10/10/17 - Patient Status Disposition: Home, Self-Care Condition: Good Overall status at discharge: patient is progressing back to baseline - Discharge Instructions Follow Up With: Jeromy Wall MD [Primary Care Provider] - 10/16/17 3:00 pm (Please follow up as schedule...) - Diet and Activity Activity: increase activity as tolerated Diet: advance to your usual diet Hospital course: Mr. Guardado is a 61-year-old male with a past medical history of past medical history includes ESRD on dialysis, anemia of chronic disease, atrial fibrillation, COPD, and hypertension who presented on 10/08/17 as a direct admit from [place] ED with chief complaint of SOB. Patient reported that he had recently been ill and missed his last dialysis treatment on Sunday. Patient is normally a M-W-F HD patient. Patient had SOB x 1 day with decreased oral intake. Presented in respiratory distress. CXR on 10/08/17 demonstrated chronic ILD with progressive L mid lung edema vs PNA. Patient was admitted for acute on chronic respiratory failure, likely secondary to volume overload due to missing hemodialysis. Was placed on BiPAP and given IV Lasix 40 mg IV, both of which improved his symptoms. Patient also developed acute on chronic renal failure, secondary to missing his hemodialysis treatment. Creatinine on presentation was 4.43. Nephrology was consulted; patient went in for hemodialysis. Patient was also noted to be in atrial fibrillation with RVR; this was possibly due to not taking his Cardizem in addition to his respiratory distress. Heart rate on presentation was 106. Patient was given a Cardizem bolus of 10 mg IV and IV Lopressor 5 mg. He is kept on continuous telemetry. On presentation, patient was hypoglycemic and had to be given IV dextrose. He also received 3 cups of orange juice and a sandwich. Glucose on 10/08/17 was 39. Glucose on date of discharge is 121. Patient was seen and examined at bedside this morning. He is resting comfortably in bed without respiratory distress. He reports feeling better than when he initially came into the hospital. Denies fever, chills, shortness of breath, or chest pain. He is currently on oxygen via nasal cannula, in no respiratory distress. On date of discharge, patient was advised to never skip dialysis, even if he is not feeling well. - Time Spent with Patient Total time spent providing and/or coordinating discharge services: Greater than 30 minutes (41 minutes) - Constitutional Vitals: Temp Pulse Resp BP Pulse Ox 98.0 F 85 14 130/65 92 10/10/17 11:25 10/10/17 03:30 10/10/17 13:56 10/10/17 11:25 10/10/17 13:56 General appearance: Present: mild distress, A&O X 3 - Head Head exam: Present: atraumatic, normocephalic - Eye Eye exam: Present: PERRL, conjuntiva pink, sclera anicteric Pupils: Present: PERRL - Neck Neck exam general surgery: Present: supple, trachea midline. Absent: lymphadenopathy - Respiratory Respiratory exam: Present: CTAB. Absent: accessory muscle use, rales, rhonchi, wheezes - Cardiovascular Cardiovascular exam: Present: +S1, +S2. Absent: diastolic murmur, gallop, rubs , systolic murmur - Skin Skin exam: Present: dry, intact <Chente Burton - Last Filed: 10/10/17 14:44> Date of Encounter: 10/10/17 Procedures/tests Complete & Pending: Procedures Performed prior 72 hours Category Date Time Status EKG [ECG 12 lead ECG] [ECG] Stat Y 10/08/17 17:22 Completed Date of admission: 10/08/17 12:58 Primary care physician: Jeromy Wall MD Consults: 10/08/17 15:45 Consult to Dialysis [CONS] ONCE 10/10/17 07:45 Consult to Dialysis [CONS] ONCE Hospital course: Mr. Guardado is a 61 year old male - Time Spent with Patient Total time spent providing and/or coordinating discharge services: - Constitutional Vitals: Temp Pulse Resp BP Pulse Ox 98.0 F 85 14 130/65 92 10/10/17 11:25 10/10/17 03:30 10/10/17 13:56 10/10/17 11:25 10/10/17 13:56 - Attending Attestation continue lasix at home I examined this patient and my medical decision-making was reviewed with the Resident Physician. I agree with the documented findings, disposition and treatment plan as described except to the extent set forth below.
[2017-10-10] MEDS ORDERED: *HR* Warfarin 1 MG TABLET PO ONE (18:00)
== END 2017-10-10 15:57 | disposition home or self-care (01) ==
LOC: 2ANU → SUATTDRO 12:58
PROVIDERS: ADMIT Hospitalist; ATTEND Internal Medicine

== ENCOUNTER 2017-11-09 18:07 | Inpatient (IN) ==
[2017-11-09] MEDS ORDERED: 0.9 % Sodium Chloride 250 ML IVC ONE (18:41)
--- NOTE | 2017-11-09 18:41 | Emergency Department Note ---
Disposition Clinical Impression: Palpitations Dyspnea Qualifiers: Dyspnea type: unspecified Qualified Code(s): R06.00 - Dyspnea, unspecified Disposition: Still a Patient Condition: Undetermined Forms: ED Satisfaction Letter General Adult HPI - General Chief complaint: ED Arrhythmia/Palpitations Stated complaint: Tachy and dyspnea after dialysis Time Seen by Provider: 11/09/17 18:14 Source: EMS Limitations: no limitations Nursing Notes Reviewed: Yes Vital Signs Reviewed: Yes - History of Present Illness HPI Narrative: 61-year-old male with a past medical history of Afib, CKD on dialysis. He has dialysis MWF. His supervisor cooler service is Dr. Hartley. He reports he had dialysis today and after dialysis he began to experience shortness of breath and palpitations. He is on Coumadin and Cardizem for his chronic A. fib. He also has COPD and congestive heart failure and is on 2 L of oxygen at all times. He does smoke. He denies having chest pain. No new lower extremity edema. No abdominal pain. Pain Scale: 0 Improves with: nothing Worsens with: nothing Associated symptoms: Reports: denies other symptoms Treatments Prior to Arrival: none - Related Data Home Medications Medication Instructions Recorded Confirmed Albuterol Sulfate [Albuterol 2 puff IH Q4HR 07/29/15 10/11/17 Inhaler] Budesonide/Formoterol 160/4.5 2 puff IH BIDR 07/29/15 10/11/17 [Symbicort] Gabapentin [Neurontin] 100 mg PO TID 07/29/15 10/11/17 Furosemide [Lasix] 40 mg PO DAILY 08/31/16 10/11/17 Oxygen 2.5 l NS AD 08/31/16 10/11/17 Multivitamin [Multivitamins] 1 cap PO DAILY 11/03/16 10/11/17 Previous Rx's Medication Instructions Recorded Famotidine [Pepcid] 10 mg PO BID #60 tablet 07/03/15 Calcium Acetate [Phos-LO] 667 mg PO TIDWM #90 capsule 10/02/15 Albuterol Neb [Proventil Neb] 2.5 mg IH Q4HR PRN #30 vial.neb 09/03/16 Magic Mouthwash [Magic Mouthwash 10 ml PO QID PRN #240 ml 12/18/16 BLM] Docusate [Colace] 100 mg PO DAILY #20 capsule 03/02/17 Megestrol Acetate [Megace] 800 mg PO DAILY #400 mls 04/12/17 Acetylcysteine 20% 600 mg PO BID #60 syringe 09/07/17 Atorvastatin [Lipitor] 40 mg PO HS #30 tablet 09/07/17 Levalbuterol Neb [Xopenex Neb] 1.25 mg IH Q6H PRN #60 vial.neb 09/07/17 Lidocaine/Prilocaine CREAM [Emla] 1 gm TP DAILY PRN tube 09/07/17 Ondansetron [Zofran ODT] 8 mg SL Q4HR PRN #60 tab.rapdis 09/07/17 Warfarin [Coumadin] 2.5 mg PO 1800 #5 tablet 09/07/17 OxyCODONE Immed Rel [Roxicodone 15 15 mg PO Q8HR PRN #90 tablet 09/24/17 MG] Budesonide/Formoterol 160/4.5 1 puff IH BIDR #1 hfa.aer.ad 10/10/17 [Symbicort 160/4.5] Doxycycline 100 mg PO BID #14 capsule 10/11/17 Allergies Allergy/AdvReac Type Severity Reaction Status Date / Time pollen extracts Allergy Itching Verified 10/11/17 13:38 shellfish derived AdvReac Nausea Verified 10/11/17 13:38 IVP DYE Allergy Intermediate Vomiting Uncoded 10/11/17 13:38 All systems ED: reviewed and negative except as stated. Constitutional: Denies: fever ENT ED: Denies: throat pain Cardiovascular: Reports: palpitations. Denies: chest pain Respiratory: Reports: dyspnea. Denies: cough Gastrointestinal: Denies: abdominal pain Integumentary: Denies: rash Past Medical History - Past Medical History Medical history: Reports: arthritis, cancer, CHF, coronary artery disease, diabetes, dialysis, GERD, hyperlipidemia, hypertension, myocardial infarction, peripheral artery disease, renal disease, other Surgical history: Reports: angioplasty/stent, carotid endarterectomy, coronary bypass (CABG), orthopedic, other, other Psychiatric history: Reports: anxiety, depression - Social History Smoking Status: Former smoker Smokeless Tobacco Status: No (does not smoke) Alcohol use: Reports: none Drug use: Reports: none Physical Exam - General Limitations: no limitations General appearance: alert, in no apparent distress - Head Head exam: atraumatic - Eye Eye exam: Present: normal appearance, PERRL - ENT ENT exam: normal exam - Neck Neck exam: Present: normal inspection - Chest Chest inspection: Present: normal inspection - Respiratory Respiratory exam: Present: wheezes (mild wheezes). Absent: respiratory distress - Cardiovascular Cardiovascular exam: Present: normal rhythm, tachycardia - Abdominal Exam Abdominal exam: Present: soft, Non-Tender - Extremities Exam Extremities exam: Present: normal inspection - Neurological Exam Neurological exam: Present: alert, oriented X3 - Skin Skin exam: Present: warm, dry Course Course Narrative: His EKG is showing likely atrial flutter. His blood pressure is 100/75. I will give him a 250 mL bolus and do a trial of Cardizem to see if his blood pressure will handle it. This patient has been signed out to the night team to follow up on labwork and response to treatment. Vital Signs Temperature 98.3 F 11/09/17 18:11 Pulse Rate 144 11/09/17 18:11 Respiratory Rate 16 11/09/17 18:11 Blood Pressure 96/75 11/09/17 18:11 O2 Sat by Pulse Oximetry 95 11/09/17 18:11 Temperature 98.3 F 11/09/17 18:11 Pulse Rate 144 11/09/17 18:11 Respiratory Rate 16 11/09/17 18:11 Blood Pressure 96/75 11/09/17 18:11 O2 Sat by Pulse Oximetry 95 11/09/17 18:11 Oxygen Delivery Oxygen Delivery Room Air Medical Decision Making - EKG Data EKG #1 EKG attestation: Yes I reviewed and interpreted this EKG. Rate: tachycardia Rhythm: A. flutter [place]/QRS: normal Interpretation: other (Atrial flutter with RVR. HR 142)
[2017-11-09 18:44] LABS: Basophils # 0.1 K/mcL (0.0-0.2); Basophils % 0.8 %; Eosinophils # 0.3 K/mcL (0.0-0.6); Eosinophils % 3.3 %; Hematocrit 35.4 % (37.5-50.1); Hemoglobin 10.3 g/dL (12.9-16.9); Immature Granulocytes % 0.3 % (0-4); Lymphocytes # 0.7 K/mcL (0.6-4.6); Lymphocytes % 9.3 %; Mean Corpuscular HGB Conc 29.1 g/dL (31.6-35.5); Mean Corpuscular Hemoglobin 29.1 pg (28.0-33.3); Mean Platelet Volume 9.2 fL (9.4-12.4); Monocytes # 0.6 K/mcL (0.0-1.3); Monocytes % 7.7 %; Neutrophils # 5.9 K/mcL (1.6-8.9); Platelet Count 193 K/mcL (140-400); Red Blood Count 3.54 M/mcL (4.19-5.50); Red Cell Distribution Width 19.2 % (11.5-14.5); Segmented Neutrophils % 78.6 %
[2017-11-09 18:49] LABS: INR 1.7; Prothrombin Time 18.6 Seconds (9.4-12.1)
[2017-11-09 18:51] LABS: Activated Partial Thrombo Time 29.7 Seconds (26.0-36.0)
[2017-11-09 18:59] LABS: Magnesium 1.8 mg/dL (1.6-2.6); Potassium 3.2 mEq/L (3.5-5.1)
[2017-11-09 19:16] LABS: Thyroid Stimulating Hormone 3.361 mcIU/mL (0.340-5.600)
[2017-11-09] MEDS ORDERED: 0.9 % Sodium Chloride 1,000 ML ONE (19:23)
--- NOTE | 2017-11-09 19:26 | Emergency Department Note ---
Disposition Clinical Impression: Atrial flutter with rapid ventricular response, Bronchitis Dyspnea Qualifiers: Dyspnea type: unspecified Qualified Code(s): R06.00 - Dyspnea, unspecified Disposition: Admitted As Inpatient Condition: Fair General Adult HPI - General Chief complaint: ED Arrhythmia/Palpitations Stated complaint: Tachy and dyspnea after dialysis Time Seen by Provider: 11/09/17 18:14 Source: EMS Limitations: no limitations Nursing Notes Reviewed: Yes Vital Signs Reviewed: Yes - History of Present Illness Pain Scale: 0 Improves with: nothing Worsens with: nothing Associated symptoms: Reports: denies other symptoms Treatments Prior to Arrival: none - Related Data Home Medications Medication Instructions Recorded Confirmed Albuterol Sulfate [Albuterol 2 puff IH Q4HR 07/29/15 10/11/17 Inhaler] Budesonide/Formoterol 160/4.5 2 puff IH BIDR 07/29/15 10/11/17 [Symbicort] Gabapentin [Neurontin] 100 mg PO TID 07/29/15 10/11/17 Furosemide [Lasix] 40 mg PO DAILY 08/31/16 10/11/17 Oxygen 2.5 l NS AD 08/31/16 10/11/17 Multivitamin [Multivitamins] 1 cap PO DAILY 11/03/16 10/11/17 Previous Rx's Medication Instructions Recorded Famotidine [Pepcid] 10 mg PO BID #60 tablet 07/03/15 Calcium Acetate [Phos-LO] 667 mg PO TIDWM #90 capsule 10/02/15 Albuterol Neb [Proventil Neb] 2.5 mg IH Q4HR PRN #30 vial.neb 09/03/16 Magic Mouthwash [Magic Mouthwash 10 ml PO QID PRN #240 ml 12/18/16 BLM] Docusate [Colace] 100 mg PO DAILY #20 capsule 03/02/17 Megestrol Acetate [Megace] 800 mg PO DAILY #400 mls 04/12/17 Acetylcysteine 20% 600 mg PO BID #60 syringe 09/07/17 Atorvastatin [Lipitor] 40 mg PO HS #30 tablet 09/07/17 Levalbuterol Neb [Xopenex Neb] 1.25 mg IH Q6H PRN #60 vial.neb 09/07/17 Lidocaine/Prilocaine CREAM [Emla] 1 gm TP DAILY PRN tube 09/07/17 Ondansetron [Zofran ODT] 8 mg SL Q4HR PRN #60 tab.rapdis 09/07/17 Warfarin [Coumadin] 2.5 mg PO 1800 #5 tablet 09/07/17 OxyCODONE Immed Rel [Roxicodone 15 15 mg PO Q8HR PRN #90 tablet 09/24/17 MG] Budesonide/Formoterol 160/4.5 1 puff IH BIDR #1 hfa.aer.ad 10/10/17 [Symbicort 160/4.5] Doxycycline 100 mg PO BID #14 capsule 10/11/17 Allergies Allergy/AdvReac Type Severity Reaction Status Date / Time pollen extracts Allergy Itching Verified 10/11/17 13:38 shellfish derived AdvReac Nausea Verified 10/11/17 13:38 IVP DYE Allergy Intermediate Vomiting Uncoded 10/11/17 13:38 Constitutional: Denies: fever ENT ED: Denies: throat pain Cardiovascular: Reports: palpitations. Denies: chest pain Respiratory: Reports: dyspnea. Denies: cough Gastrointestinal: Denies: abdominal pain Integumentary: Denies: rash Past Medical History - Past Medical History Medical history: Reports: arthritis, cancer, CHF, coronary artery disease, diabetes, dialysis, GERD, hyperlipidemia, hypertension, myocardial infarction, peripheral artery disease, renal disease, other Surgical history: Reports: angioplasty/stent, carotid endarterectomy, coronary bypass (CABG), orthopedic, other, other Psychiatric history: Reports: anxiety, depression - Social History Smoking Status: Former smoker Smokeless Tobacco Status: No (does not smoke) Alcohol use: Reports: none Drug use: Reports: none Physical Exam - General Limitations: no limitations General appearance: alert, in no apparent distress Course Course Narrative: Patient taken over at signout from Dr. Young. Patient developed symptoms shortly after dialysis. Symptoms include dyspnea. Patient was found to be in atrial flutter with a rate of approximately 150. Blood pressure systolically 90. Patient has received a small fluid bolus as well as Cardizem. Labs are pending. Continue to follow. After personal examination. Patient has diffuse wheezing. Patient states he does have COPD but does not usually have underlying wheezing or dyspnea. Symptoms been going on for the last couple days in regards to fatigue and generalized malaise. No chest pain or headache no myalgias. Cough has been going on for approximately one month. X-ray does not show pneumonia but concern for COPD exacerbation and bronchitis. Due to his heart rate he has not been given albuterol but steroids have been given along with antibiotics. - Consultations Consultation #1: Case was discussed with Dr. Salcedo. Patient has received a small fluid bolus as well as Cardizem. Patient's heart rate has not improved in the emergency department. His blood pressure has been stable. At this point patient's blood work does show a slightly elevated troponin however this is relatively normal for him during his underlying kidney disease. Patient will continue to be monitored closely in the emergency department. Patient accepted for admission. Vital Signs Temperature 98.3 F 11/09/17 18:11 Pulse Rate 144 11/09/17 18:11 Respiratory Rate 16 11/09/17 18:11 Blood Pressure 96/75 11/09/17 18:11 O2 Sat by Pulse Oximetry 95 11/09/17 18:11 Temperature 98.3 F 11/09/17 18:11 Pulse Rate 140 11/09/17 20:32 Respiratory Rate 16 11/09/17 20:32 Blood Pressure 103/70 11/09/17 20:32 O2 Sat by Pulse Oximetry 98 11/09/17 20:32 Oxygen Delivery Oxygen Delivery Nasal Cannula Medical Decision Making - Lab Data Result diagrams: 11/09/17 18:36 11/09/17 18:36 Lab Results 11/09/17 11/09/17 11/09/17 Range/Units 18:36 18:36 18:36 WBC 7.5 (4.3-11.1) K/mcL RBC 3.54 L (4.19-5.50) M/mcL Hgb 10.3 L (12.9-16.9) g/dL Hct 35.4 L (37.5-50.1) % MCV 100.0 (83.0-100.0) fL MCH 29.1 (28.0-33.3) pg MCHC 29.1 L (31.6-35.5) g/dL RDW 19.2 H (11.5-14.5) % Plt Count 193 (140-400) K/mcL MPV 9.2 L (9.4-12.4) fL Immature Gran % 0.3 (0-4) % Seg Neutrophils % 78.6 % Lymphocytes % 9.3 % Monocytes % 7.7 % Eosinophils % 3.3 % Basophils % 0.8 % Neutrophils # 5.9 (1.6-8.9) K/mcL Lymphocytes # 0.7 (0.6-4.6) K/mcL Monocytes # 0.6 (0.0-1.3) K/mcL Eosinophils # 0.3 (0.0-0.6) K/mcL Basophils # 0.1 (0.0-0.2) K/mcL PT 18.6 H (9.4-12.1) Seconds INR 1.7 APTT 29.7 (26.0-36.0) Seconds Sodium 138 (136-145) mEq/L Potassium 3.2 L (3.5-5.1) mEq/L Chloride 97 L (98-107) mEq/L Carbon Dioxide 32 H (23-29) mEq/L BUN 36 H (6-20) mg/dL Creatinine 2.91 H (0.70-1.30) mg/dL Est GFR ( Amer) 27 L (> 60) Est GFR (Non-Af Amer) 22 L (> 60) BUN/Creatinine Ratio 12 (6-26) Glucose 123 H (70-105) mg/dL Calculated Osmolality 296 (280-300) Calcium 8.0 L (8.6-10.3) mg/dL Magnesium 1.8 (1.6-2.6) mg/dL Troponin I (< 0.04) ng/mL TSH 3.361 (0.340-5.600) mcIU/mL 11/09/17 Range/Units 18:36 WBC (4.3-11.1) K/mcL RBC (4.19-5.50) M/mcL Hgb (12.9-16.9) g/dL Hct (37.5-50.1) % MCV (83.0-100.0) fL MCH (28.0-33.3) pg MCHC (31.6-35.5) g/dL RDW (11.5-14.5) % Plt Count (140-400) K/mcL MPV (9.4-12.4) fL Immature Gran % (0-4) % Seg Neutrophils % % Lymphocytes % % Monocytes % % Eosinophils % % Basophils % % Neutrophils # (1.6-8.9) K/mcL Lymphocytes # (0.6-4.6) K/mcL Monocytes # (0.0-1.3) K/mcL Eosinophils # (0.0-0.6) K/mcL Basophils # (0.0-0.2) K/mcL PT (9.4-12.1) Seconds INR APTT (26.0-36.0) Seconds Sodium (136-145) mEq/L Potassium (3.5-5.1) mEq/L Chloride (98-107) mEq/L Carbon Dioxide (23-29) mEq/L BUN (6-20) mg/dL Creatinine (0.70-1.30) mg/dL Est GFR ( Amer) (> 60) Est GFR (Non-Af Amer) (> 60) BUN/Creatinine Ratio (6-26) Glucose (70-105) mg/dL Calculated Osmolality (280-300) Calcium (8.6-10.3) mg/dL Magnesium (1.6-2.6) mg/dL Troponin I 0.07 H* (< 0.04) ng/mL TSH (0.340-5.600) mcIU/mL Attestation Statement - Attestation Attestation: I examined this patient and my medical decision-making was reviewed with the Resident Physician. I agree with the documented findings, disposition and treatment plan as described except to the extent set forth below. Patient with history of A. fib, currently anticoagulated with Coumadin. He does have baseline soft blood pressure. Plan to start Cardizem infusion. Suspect a flutter with 2-1 conduction ratio. Patient will be started on Cardizem, will admit to the hospitalist team for further evaluation. Mild improvement of heart rate at time of admission. Recommend titration of Cardizem drip. I spent greater than 35 minutes of critical care time assessed in this acutely ill patient suffering from tachycardia requiring Cardizem infusion. This was excluding billable procedures.
[2017-11-09] MEDS ORDERED: methylPREDNISolone 125 MG/2 ML VIAL IVP ONE (19:34)
[2017-11-09] MEDS ORDERED: Levofloxacin 750 MG/150 ML 750 MG/150 ML BAG IVPB ONE (20:36)
[2017-11-10] MEDS ORDERED: Naloxone 0.4 MG/ML INJ IVP PRN (00:46)
[2017-11-10] MEDS ORDERED: Ondansetron 4 MG/2 ML VIAL IVP PRN (00:46)
[2017-11-10] MEDS ORDERED: Albuterol 2.5 MG/3 ML NEBULIZER IH PRN (01:41)
--- NOTE | 2017-11-10 01:59 | Internal Med History&Physical ---
Date of Encounter: 11/10/17 Time of Encounter: 00:35 Assessment and Plan (1) Acute exacerbation of chronic obstructive airways disease Current visit: No Status: Acute Will continue systemic steroids (IV solumedrol 40mg q8h) Xopenx INH O2 supplementation (reports of using 3L at home) IV abx monitor O2 sat, goal O2 sat: 88-92% will closely monitor respiratory status (2) Atrial flutter Current visit: No Status: Acute restarted home dose of Coreg and Cardizem PO titrate off cardizem gtt for a goal HR<100 Please call cardiology evaluation in am anticoagulated with coumadin however reports of not taking today's coumadin dose , will resume coumadin in am continue tele monitoring Qualifiers: Atrial flutter type: typical Qualified Code(s): I48.3 - Typical atrial flutter (3) CAD (coronary artery disease) Current visit: No Status: Chronic no signs of angina present continue asa, bb, statin Qualifiers: Coronary Disease-Associated Artery/Lesion type: bypass graft [place] vs. 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 Chawla Nephro consultation requested (please call in am) (6) HLD (hyperlipidemia) Current visit: No Status: Chronic continue statin therapy Qualifiers: Hyperlipidemia type: mixed hyperlipidemia Qualified Code(s): E78.2 - Mixed hyperlipidemia (7) HTN (hypertension) Current visit: No Status: Chronic BP within acceptable range continue home meds Pt was noted to be hypotensive upon arrival to the ER and received 250cc NS bolus to which he responded appropriately will continue to closely monitor hold antihypertensive medications for SBP<100 Qualifiers: Hypertension type: essential hypertension Qualified Code(s): I10 - Essential (primary) hypertension (8) Lung cancer Current visit: No Status: Chronic pt currently undergoing chemotherapy outpatient follow up with oncology Qualifiers: Laterality: right Lung location: hilum of lung Qualified Code(s): C34.01 - Malignant neoplasm of right main bronchus (9) Hypokalemia Current visit: Yes Status: Acute K supplemented by the ER physician continue to monitor electrolytes and replace as needed Internal Medicine - H&P: HPI Chief complaint: shortness of breath, aflutter Admitted From: Home Plans for Post Hospital Care: Home History of present illness: Mr. Guardado is a 61 year old male with PMH of ESRD on HD, lung ca, COPD on LTOT, Afib on Coumadin, HTN who was sent to the ER for dialysis for shortness of breath and palpitations. In the ER pt was reported to be dyspneic and in Aflutter with rate in 150s. Pt noted to have diffuse wheezing, was given IV steroids and started on cardizem gtt. Albuterol was not given due to tachycardia. Pt reports of not taking his home medications prior to dialysis including Cardizem, Coreg, and Coumadin. He reports of improvement in his breathing after receiving IV steroids. His rate is better controlled and currently denies any chest pain. He reports of chronic back pain and requests his home medications. Denies any cough, fever, or chills. Social Hx: Former smoker Past Med Surg Social Fam HX - Past Medical History Medical history: arthritis, cancer, CHF, coronary artery disease, diabetes, dialysis, GERD, hyperlipidemia, hypertension, myocardial infarction, peripheral artery disease, renal disease, other Psychiatric history: anxiety, depression - Past Surgical History Surgical History: angioplasty/stent, carotid endarterectomy, coronary bypass ( CABG), orthopedic, other, other - Social History Smoking Status: Former smoker Smokeless Tobacco Status: No (does not smoke) Alcohol use: none Drug use: none - Family History Brother Adopted: No Family Member Ethnicity: Non- Living Status: Hx Family Cardiac Disorders: Yes Hx Family Respiratory Disorders: Yes (dad black lung) Hx Family Cancer: Yes (mother) Hx Family GI Disorders: No Hx Family Endocrine Disorder: Yes (sister) Hx Family Neuromuscular Disorders: No Hx Family Neurologic Disorders: No Hx Family HEENT Disorders: No Hx Family Autoimmune Disorders: No Sister Family Member Ethnicity: Non- Living Status: Still Living Hx Family Cardiac Disorders: Yes (HD) Hx Family Respiratory Disorders: Yes (COPD) Hx Family Endocrine Disorder: Yes (Thyroid disease) Mother Adopted: No Family Member Ethnicity: Non- Living Status: Hx Family Cardiac Disorders: No Hx Family Respiratory Disorders: No Hx Family Cancer: Yes (bone) Hx Family GI Disorders: No Hx Family Endocrine Disorder: No Hx Family Neuromuscular Disorders: No Hx Family Neurologic Disorders: No Hx Family HEENT Disorders: No Hx Family Autoimmune Disorders: No Father Adopted: No Family Member Ethnicity: Non- Living Status: Age at : 70 Hx Family Cardiac Disorders: No Hx Family Respiratory Disorders: Yes Hx Family Cancer: No Hx Family GI Disorders: No Hx Family Endocrine Disorder: No Hx Family Neuromuscular Disorders: No Hx Family Neurologic Disorders: No Hx Family HEENT Disorders: No Hx Family Autoimmune Disorders: No Internal Medicine - H&P: Meds Famotidine [Pepcid] 10 mg PO BID #60 tablet 07/03/15 [Rx] Albuterol Sulfate [Albuterol Inhaler] 2 puff IH Q4HR 07/29/15 [History] Budesonide/Formoterol 160/4.5 [Symbicort] 2 puff IH BIDR 07/29/15 [History] Gabapentin [Neurontin] 100 mg PO TID 07/29/15 [History] Calcium Acetate [Phos-LO] 667 mg PO TIDWM #90 capsule 10/02/15 [Rx] Furosemide [Lasix] 40 mg PO DAILY 08/31/16 [History] Oxygen 2.5 l NS AD 08/31/16 [History] Albuterol Neb [Proventil Neb] 2.5 mg IH Q4HR PRN #30 vial.neb 09/03/16 [Rx] Multivitamin [Multivitamins] 1 cap PO DAILY 11/03/16 [History] Magic Mouthwash [Magic Mouthwash BLM] 10 ml PO QID PRN #240 ml 12/18/16 [Rx] Docusate [Colace] 100 mg PO DAILY #20 capsule 03/02/17 [Rx] Megestrol Acetate [Megace] 800 mg PO DAILY #400 mls 04/12/17 [Rx] Acetylcysteine 20% 600 mg PO BID #60 syringe 09/07/17 [Rx] Atorvastatin [Lipitor] 40 mg PO HS #30 tablet 09/07/17 [Rx] Levalbuterol Neb [Xopenex Neb] 1.25 mg IH Q6H PRN #60 vial.neb 09/07/17 [Rx] Lidocaine/Prilocaine CREAM [Emla] 1 gm TP DAILY PRN tube 09/07/17 [Rx] Ondansetron [Zofran ODT] 8 mg SL Q4HR PRN #60 tab.rapdis 09/07/17 [Rx] Warfarin [Coumadin] 2.5 mg PO 1800 #5 tablet 09/07/17 [Rx] OxyCODONE Immed Rel [Roxicodone 15 MG] 15 mg PO Q8HR PRN #90 tablet 09/24/17 [Rx ] Budesonide/Formoterol 160/4.5 [Symbicort 160/4.5] 1 puff IH BIDR #1 hfa.aer.ad 10/10/17 [Rx] Doxycycline 100 mg PO BID #14 capsule 10/11/17 [Rx] Coreg 1 tab PO BID 11/10/17 [History] Diltiazem 1 cap PO DAILY 11/10/17 [History] Guaifenesin 1 tab PO BID 11/10/17 [History] Phos-LO 1 cap PO TID 11/10/17 [History] 3 Allergy/AdvReac Type Severity Reaction Status Date / Time pollen extracts Allergy Itching Verified 10/11/17 13:38 shellfish derived AdvReac Nausea Verified 10/11/17 13:38 IVP DYE Allergy Intermediate Vomiting Uncoded 10/11/17 13:38 All Systems PM: A 10-system review of systems was performed and is negative for pertinent findings except as documented above in the HPI. - Constitutional Constitutional: as per HPI - Constitutional Vitals: Temp Pulse Resp BP Pulse Ox 97.8 F 125 18 125/75 99 11/10/17 00:06 11/10/17 00:20 11/10/17 00:06 11/10/17 00:20 11/10/17 00:06 General appearance: Present: A&O X 3, no acute distress, answers questions appropriately - Head Head exam: Present: atraumatic, normocephalic - Eye Eye exam: Present: conjuntiva pink, sclera anicteric - Respiratory Respiratory exam: Present: wheezes (diffuse expiratory wheezing). Absent: accessory muscle use, rales, respiratory distress - Cardiovascular Cardiovascular exam: Present: irregular rhythm, +S1, +S2. Absent: diastolic murmur, systolic murmur - GI/Abdominal GI/Abdominal exam: Present: normal bowel sounds, soft, no peritoneal signs. Absent: distended, tenderness - Extremities Exam Extremities exam: Present: warm, radial pulses palpable and symmetrical. Absent : calf tenderness, cyanotic, pedal edema - Neurological Exam Neurological exam: Present: alert, oriented X3 - Psychiatric Psychiatric exam: Present: normal affect, normal mood Internal Med - H&P Results - Labs CBC & Chem 7: 11/09/17 18:36 11/09/17 18:36
[2017-11-10] MEDS ORDERED: 0.9 % Sodium Chloride 250 ML IVC ONE (02:11)
[2017-11-10] MEDS: *HR* OxyCODONE Immed Rel 15 MG TABLET PO PRN ×3 (02:31→18:56)
[2017-11-10] MEDS: Levalbuterol Neb 1.25 MG/3 ML IH SCH ×4 (03:27→21:09)
[2017-11-10] MEDS: MethylPREDNISolone 40 MG/ML VIAL IVP SCH ×3 (03:34→20:01)
[2017-11-10] MEDS ORDERED: 0.9 % Sodium Chloride 1,000 ML ONE (03:46)
[2017-11-10] MEDS ORDERED: 0.9 % Sodium Chloride 250 ML IV ONE (04:30)
[2017-11-10] MEDS: Diltiazem CD (24hr) 240 MG CAPSULE PO SCH (05:27)
[2017-11-10 05:41] LABS: Adenovirus Not Detected (Not Detect); Bordetella Pertussis Not Detected (Not Detect); Chlamydophila pneumoniae Not Detected (Not Detect); Coronavirus 229E Not Detected (Not Detect); Coronavirus HKU1 Not Detected (Not Detect); Coronavirus NL63 Not Detected (Not Detect); Coronavirus OC43 Not Detected (Not Detect); Human Metapneumovirus Not Detected (Not Detect); Human Rhinovirus/Enterovirus ***DETECTED*** (Not Detect); Influenza A Subtype 2009 H1 Not Detected (Not Detect); Influenza A Untypeable Not Detected (Not Detect); Influenza B Not Detected (Not Detect); Mycoplasma pneumoniae Not Detected (Not Detect); Parainfluenza Virus 1 Not Detected (Not Detect); Parainfluenza Virus 2 Not Detected (Not Detect); Parainfluenza Virus 3 Not Detected (Not Detect); Parainfluenza Virus 4 Not Detected (Not Detect); Respiratory Syncytial Virus Not Detected (Not Detect)
[2017-11-10 06:02] LABS: INR 1.7
[2017-11-10 06:10] LABS: Calcium 8.3 mg/dL (8.6-10.3); Magnesium 1.8 mg/dL (1.6-2.6); Phosphorous 3.6 mg/dL (2.7-4.5); Potassium 4.6 mEq/L (3.5-5.1)
[2017-11-10] MEDS ORDERED: Warfarin perPT PO PRN (08:00)
[2017-11-10 08:16] LABS: Hematocrit 34.5 % (37.5-50.1); Hemoglobin 10.2 g/dL (12.9-16.9); Immature Granulocytes % 0.3 % (0-4); Lymphocytes # 0.3 K/mcL (0.6-4.6); Lymphocytes % 10.3 %; Mean Corpuscular HGB Conc 29.6 g/dL (31.6-35.5); Mean Corpuscular Hemoglobin 29.4 pg (28.0-33.3); Mean Corpuscular Volume 99.4 fL (83.0-100.0); Mean Platelet Volume 10.7 fL (9.4-12.4); Monocytes % 1.3 %; Neutrophils # 2.6 K/mcL (1.6-8.9); Platelet Count 179 K/mcL (140-400); Red Blood Count 3.47 M/mcL (4.19-5.50); Red Cell Distribution Width 19.2 % (11.5-14.5); Segmented Neutrophils % 88.1 %
[2017-11-10] MEDS: Famotidine 20 MG TABLET PO SCH ×2 (08:45→18:07)
[2017-11-10] MEDS: Megestrol Acetate 400 MG/10 ML UDC PO SCH (08:45)
[2017-11-10] MEDS: Gabapentin 100 MG CAPSULE PO SCH ×3 (08:45→20:01)
[2017-11-10] MEDS: Calcium Acetate 667 MG CAPSULE PO SCH ×3 (08:45→18:07)
[2017-11-10] MEDS: *HR* Acetylcysteine 20% 600 MG/3 ML ORAL SYRINGE PO SCH ×2 (08:46→20:02)
[2017-11-10] MEDS ORDERED: Furosemide 40 MG TABLET PO SCH (09:00)
[2017-11-10] MEDS ORDERED: PHOS LO PO SCH (09:00)
[2017-11-10] MEDS: Budesonide/Formoterol 160/4.5 MDI IH SCH ×2 (09:12→21:09)
[2017-11-10] MEDS ORDERED: 0.9 % Sodium Chloride 2,000 ML ONE (09:59)
[2017-11-10] MEDS ORDERED: 0.9 % Sodium Chloride 250 ML IVC PRN (10:08)
[2017-11-10] MEDS ORDERED: 0.9 % Sodium Chloride 1,000 ML PRIME SCH (10:15)
--- NOTE | 2017-11-10 10:19 | Internal Med Progress Note ---
Date of Encounter: 11/10/17 Time of Encounter: 10:17 - Assessment and plan (1) Atrial flutter with rapid ventricular response Current Visit: Yes Status: Acute Assessment and plan: Triggered by acute COPD exacerbation/viral infection Continue Cardizem drip, carvedilol and oral diltiazem cardiology recommendations appreciated Resume warfarin, INR is not therapeutic, no history of CVA, no need for bridging (2) Acute exacerbation of chronic obstructive airways disease Current Visit: No Status: Acute Assessment and plan: Acute on chronic hypoxic respiratory failure secondary to acute COPD exacerbation due to rhinovirus/enterovirus bronchitis in combination with acute systolic CHF exacerbation Continue Solu-Medrol, duo nebs May discontinue Levaquin day #1 The patient still makes urine, use Lasix IV 80 mg twice a day, strict I's and O' s and daily weight Echocardiogram from August 2017 showed ejection fraction of 45%, moderate to severe eccentric mitral regurgitation and moderate pulmonary hypertension (3) Hypoxia Current Visit: No Status: Acute (4) History of coronary artery bypass graft Current Visit: No Status: Chronic (5) HTN (hypertension) Current Visit: No Status: Chronic Qualifiers: Hypertension type: essential hypertension Qualified Code(s): I10 - Essential (primary) hypertension (6) HLD (hyperlipidemia) Current Visit: No Status: Chronic Qualifiers: Hyperlipidemia type: mixed hyperlipidemia Qualified Code(s): E78.2 - Mixed hyperlipidemia (7) Acute and chronic respiratory failure ([id number]) Current Visit: No Status: Acute Qualifiers: Respiratory failure complication: hypoxia Qualified Code(s): J96.21 - Acute and chronic respiratory failure with hypoxia (8) Type 2 diabetes mellitus Current Visit: No Status: Chronic Assessment and plan: Insulin sliding scale Qualifiers: Diabetes mellitus complication status: with circulatory complication Diabetes mellitus complication detail: with other circulatory complications Diabetes mellitus prison insulin use: without lobsterman use Qualified Code( s): E11.59 - Type 2 diabetes mellitus with other circulatory complications (9) ESRD (end stage renal disease) on dialysis Current Visit: No Status: Chronic Assessment and plan: Follows with Dr. Veras (10) Acute bronchitis due to Rhinovirus Current Visit: No Status: Acute (11) Squamous cell carcinoma of right lung Current Visit: Yes Status: Acute Assessment and plan: He underwent bronch debulking of endobronchial lesions, cryotherapy 12/15 for hemoptysis Started RT and wk 1 taxol (12/18/16) to control symptoms and as definitive Rx Carbo held due to CKD/dialysis. Consolidation Taxol in February 2017. - Constitutional Vitals: Temp Pulse Resp BP Pulse Ox 97.1 F L 111 14 118/71 90 11/10/17 08:08 11/10/17 08:08 11/10/17 09:13 11/10/17 08:08 11/10/17 09:13 General appearance: Present: A&O X 3, no acute distress, answers questions appropriately - Head Head exam: Present: atraumatic, normocephalic - Eye Eye exam: Present: PERRL, conjuntiva pink, sclera anicteric Pupils: Present: PERRL - Neck Neck exam general surgery: Present: supple, trachea midline. Absent: lymphadenopathy - Respiratory Respiratory exam: Present: CTAB, rales (Diffuse crackles and wheezing), wheezes. Absent: accessory muscle use, rhonchi - Cardiovascular Cardiovascular exam: Present: RRR, +S1, +S2. Absent: diastolic murmur, gallop, rubs, systolic murmur - GI/Abdominal GI/Abdominal exam: Present: normal bowel sounds, soft, no peritoneal signs. Absent: distended, tenderness - Extremities Exam Extremities exam: Present: warm, radial pulses palpable and symmetrical. Absent : calf tenderness, cyanotic, pedal edema - Neurological Exam Neurological exam: Present: CN II-XII intact, oriented X3, no focal deficits. Absent: pronater drift, facial droop, speech deficit - Skin Skin exam: Present: dry, intact Internal Medicine: Result - Labs CBC & Chem 7: 11/10/17 07:31 11/10/17 05:25 Labs: Short CBC 11/10/17 Range/Units 07:31 WBC 3.0 L D (4.3-11.1) K/mcL Hgb 10.2 L (12.9-16.9) g/dL Hct 34.5 L (37.5-50.1) % Plt Count 179 (140-400) K/mcL Neutrophils # 2.6 (1.6-8.9) K/mcL BMP 11/10/17 05:25 Sodium 132 L Potassium 4.6 D Chloride 97 L Carbon Dioxide 25 BUN 54 H Creatinine 3.88 H Glucose 401 H Calcium 8.3 L - ABG Interpretation ABG results: PT/INR, D-dimer PT 18.0 Seconds (9.4-12.1) H 11/10/17 05:25 - VTE Documentation of Mechanical Device: Graduated compression elastic hosiery Consult Discharge Plan - Plan Referrals: Jeromy Wall MD [Primary Care Provider] -
[2017-11-10] MEDS: Furosemide 40 MG/4 ML VIAL IVP SCH ×2 (10:28→20:01)
[2017-11-10] MEDS ORDERED: Albumin 25% 12.5gm/50mL 25.0 GM/100 ML IV.SOLN ONE (11:04)
[2017-11-10] MEDS ORDERED: Albumin 25% 25gram/100mL 25 GM/100 ML IV.SOLN IVPB ONE (11:09)
--- NOTE | 2017-11-10 11:14 | Nephrology Consult Note ---
Date of Encounter: 11/10/17 Time of Encounter: 11:09 Assessment and Plan (1) ESRD (end stage renal disease) on dialysis Current Visit: No Status: Acute HD MWF. Renal vitamins. Renal dose medications. Renal diet. Additional dialysis and ultrafiltration as needed. Will perform uF today secondary to patient's dyspnea and edema suggesting a volume overload state. He was seen while on dialysis and his UF goal was adjusted secondary to hypotension. (2) Atrial flutter with rapid ventricular response Current Visit: Yes Status: Acute Per cardiology and primary team. (3) Dyspnea Current Visit: Yes Status: Acute Patient will need UF for dyspnea and volume overload state. Qualifiers: Dyspnea type: unspecified Qualified Code(s): R06.00 - Dyspnea, unspecified (4) Anemia Current Visit: No Status: Acute Monitor hemoglobin. Hemoglobin seems to be stable. No acute bleeding. Qualifiers: Anemia type: due to chronic kidney disease Chronic kidney disease stage: on chronic dialysis Qualified Code(s): N18.6 - End stage renal disease; D63.1 - Anemia in chronic kidney disease; D63.1 - Anemia in chronic kidney disease; Z99.2 - Dependence on renal dialysis; Z99.2 - Dependence on renal dialysis; Z99.2 - Dependence on renal dialysis; Z99.2 - Dependence on renal dialysis (5) Hypertension Current Visit: Yes Status: Acute Currently hypotensive. Difficulty removing fluid, but necessary secondary to dyspnea Qualifiers: Qualified Code(s): I10 - Essential (primary) hypertension (6) COPD exacerbation Current Visit: No Status: Acute Per the primary team. A few rhonchi, but no wheezing appreciated during my evaluation. History of Present Illness - Reason for Consult Consult date: 11/10/17 end stage renal disease - Chief Complaint dyspnea - History of Present Illness Mr. Guardado is a 61 yo man with a history of ESRD on dialysis MWF who presents after feeling ill after dialysis on Sunday. He was found to have atrial flutter with RVR. He was admited to the hospitalist service and [facility] were consulted for ongoing dialysis needs. He is complaining of dyspnea after receiving fluid for hypotension during his work-up. He denies chest pain. Past Med Surg Social Fam HX - Past Medical History Medical history: arthritis, cancer, CHF, coronary artery disease, diabetes, dialysis, GERD, hyperlipidemia, hypertension, myocardial infarction, peripheral artery disease, renal disease, other Psychiatric history: anxiety, depression - Past Surgical History Surgical History: angioplasty/stent, carotid endarterectomy, coronary bypass ( CABG), orthopedic, other, other - Social History Smoking Status: Former smoker Smokeless Tobacco Status: No (does not smoke) Alcohol use: none Drug use: none - Family History Brother Adopted: No Family Member Ethnicity: Non- Living Status: Hx Family Cardiac Disorders: Yes Hx Family Respiratory Disorders: Yes (dad black lung) Hx Family Cancer: Yes (mother) Hx Family GI Disorders: No Hx Family Endocrine Disorder: Yes (sister) Hx Family Neuromuscular Disorders: No Hx Family Neurologic Disorders: No Hx Family HEENT Disorders: No Hx Family Autoimmune Disorders: No Sister Family Member Ethnicity: Non- Living Status: Still Living Hx Family Cardiac Disorders: Yes (HD) Hx Family Respiratory Disorders: Yes (COPD) Hx Family Endocrine Disorder: Yes (Thyroid disease) Mother Adopted: No Family Member Ethnicity: Non- Living Status: Hx Family Cardiac Disorders: No Hx Family Respiratory Disorders: No Hx Family Cancer: Yes (bone) Hx Family GI Disorders: No Hx Family Endocrine Disorder: No Hx Family Neuromuscular Disorders: No Hx Family Neurologic Disorders: No Hx Family HEENT Disorders: No Hx Family Autoimmune Disorders: No Father Adopted: No Family Member Ethnicity: Non- Living Status: Age at : 70 Hx Family Cardiac Disorders: No Hx Family Respiratory Disorders: Yes Hx Family Cancer: No Hx Family GI Disorders: No Hx Family Endocrine Disorder: No Hx Family Neuromuscular Disorders: No Hx Family Neurologic Disorders: No Hx Family HEENT Disorders: No Hx Family Autoimmune Disorders: No Medications and Allergies Famotidine [Pepcid] 10 mg PO BID #60 tablet 07/03/15 [Rx] Albuterol Sulfate [Albuterol Inhaler] 2 puff IH Q4HR 07/29/15 [History] Budesonide/Formoterol 160/4.5 [Symbicort] 2 puff IH BIDR 07/29/15 [History] Gabapentin [Neurontin] 100 mg PO TID 07/29/15 [History] Calcium Acetate [Phos-LO] 667 mg PO TIDWM #90 capsule 10/02/15 [Rx] Furosemide [Lasix] 40 mg PO DAILY 08/31/16 [History] Oxygen 2.5 l NS AD 08/31/16 [History] Albuterol Neb [Proventil Neb] 2.5 mg IH Q4HR PRN #30 vial.neb 09/03/16 [Rx] Multivitamin [Multivitamins] 1 cap PO DAILY 11/03/16 [History] Magic Mouthwash [Magic Mouthwash BLM] 10 ml PO QID PRN #240 ml 12/18/16 [Rx] Docusate [Colace] 100 mg PO DAILY #20 capsule 03/02/17 [Rx] Megestrol Acetate [Megace] 800 mg PO DAILY #400 mls 04/12/17 [Rx] Acetylcysteine 20% 600 mg PO BID #60 syringe 09/07/17 [Rx] Atorvastatin [Lipitor] 40 mg PO HS #30 tablet 09/07/17 [Rx] Levalbuterol Neb [Xopenex Neb] 1.25 mg IH Q6H PRN #60 vial.neb 09/07/17 [Rx] Lidocaine/Prilocaine CREAM [Emla] 1 gm TP DAILY PRN tube 09/07/17 [Rx] Ondansetron [Zofran ODT] 8 mg SL Q4HR PRN #60 tab.rapdis 09/07/17 [Rx] Warfarin [Coumadin] 2.5 mg PO 1800 #5 tablet 09/07/17 [Rx] OxyCODONE Immed Rel [Roxicodone 15 MG] 15 mg PO Q8HR PRN #90 tablet 09/24/17 [Rx ] Budesonide/Formoterol 160/4.5 [Symbicort 160/4.5] 1 puff IH BIDR #1 hfa.aer.ad 10/10/17 [Rx] Doxycycline 100 mg PO BID #14 capsule 10/11/17 [Rx] Coreg 25 mg PO BID 11/10/17 [History] Diltiazem 240 mg PO DAILY 11/10/17 [History] Guaifenesin 600 mg PO BID 11/10/17 [History] Phos-LO 667 mg PO TID 11/10/17 [History] 3 Allergy/AdvReac Type Severity Reaction Status Date / Time pollen extracts Allergy Itching Verified 10/11/17 13:38 shellfish derived AdvReac Nausea Verified 10/11/17 13:38 IVP DYE Allergy Intermediate Vomiting Uncoded 10/11/17 13:38 Review of Systems All Systems: reviewed and no additional remarkable complaints except as stated ( as per hpi) Exam - Vital Signs Vital signs: Initial Vital Signs Temp Pulse Resp BP Pulse Ox 98.3 F 144 16 96/75 95 11/09/17 18:11 11/09/17 18:11 11/09/17 18:11 11/09/17 18:11 11/09/17 18:11 Vital Signs - Last 8 Hours Temp Pulse Resp BP Pulse Ox 11/10/17 09:13 14 90 11/10/17 08:08 97.1 F L 111 14 118/71 90 11/10/17 04:53 97.6 F 128 16 123/83 99 11/10/17 03:39 90/60 11/10/17 03:30 18 100 Intake and Output 11/09/17 11/10/17 11/10/17 23:59 07:59 15:59 Intake Total 82 / 332 293 / 293 65.0 / 65.0 Balance 82 / 332 293 / 293 65.0 / 65.0 Intake: IV Fluids 82 / 82 293 / 293 65.0 / 65.0 0.9 % Sodium Chloride 250 ML @ 250 / 250 937.5 mls/hr IVC .Q16M ONE Rx#: [id number] Cardizem 125 MG In 0.9 % Sodium 82 / 82 43 / 43 65.0 / 65.0 Chloride 100 ML @ 5 MG/HR 5 mls/hr IVC .Q24H [facility] Rx#: [id number] Other: Weight 60.781 kg Patient Weight 11/10/17 23:59 Weight 60.781 kg - General Appearance General appearance: well-developed, well-nourished EENT: ATNC Neck: supple Respiratory: course breath sounds Cardiology: edema, regular rate Additional Comments: Frequent missed beats Gastrointestinal: no tenderness Integumentary: warm and dry Neurologic: alert and oriented x3 Musculoskeletal: no cyanosis Psychiatric: mood/affect appropriate Results - Lab Results 11/10/17 07:31 11/10/17 05:25 Most recent lab results Calcium 8.3 mg/dL (8.6-10.3) L 11/10/17 05:25 Phosphorus 3.6 mg/dL (2.7-4.5) 11/10/17 05:25 Magnesium 1.8 mg/dL (1.6-2.6) 11/10/17 05:25 Consult Discharge Plan - Plan Referrals: Jeromy Wall MD [Primary Care Provider] -
[2017-11-10 11:51] LABS: Hepatitis B Surface Antigen Reactive (Nonreactive)
[2017-11-10] MEDS ORDERED: *HR* OxyCODONE Immed Rel 15 MG TABLET PO ONE (14:47)
--- NOTE | 2017-11-10 15:12 | Cardiology Consult Note ---
<Dennise Matthews - Last Filed: 11/10/17 15:57> Date of Encounter: 11/10/17 Time of Encounter: 15:00 Assessment and Plan (1) Acute exacerbation of chronic obstructive airways disease Current Visit: No Status: Acute Per cardiology: -Admitted with COPD exacerbation. -Rhino virus positive . -Management per primary service. (2) Atrial flutter Current Visit: No Status: Chronic Per cardiology: -KNown a.flutter, RVR on admission. -Currently on coreg 25mg BID and cardizem CD 240mg daily. -ON amiodarone at home. -On coumadin for anticoagulation. -Average HR previous 12 hours noted to be 99, atrial flutter. -Will resume amiodarone 200mg daily. -Cardiology will sign off and will follow in outpatient setting. FOllow up set. Qualifiers: Atrial flutter type: typical Qualified Code(s): I48.3 - Typical atrial flutter (3) Cardiomyopathy Current Visit: No Status: Chronic Per cardiology: -Known cardiomyopathy with RUBENS 03/2017 with LVEF 45%. -ON beta blcoker. Had been on joelle inhibitor outpatient. Now held due to hypotension. -1+ bilateral lower extremity pitting edema noted. S/p HD today. -Chest x-ray with no overt CHF noted. -Patient is at his baseline weight. -ON lasix. -Currently net negative 1400ml. Qualifiers: Cardiomyopathy type: unspecified Qualified Code(s): I42.9 - Cardiomyopathy , unspecified (4) Elevated troponin Current Visit: No Status: Chronic Per cardiology: -Troponin 0.07 in the setting of CKD, COPD -Has chronically elevated troponins. -Denies chest pain. -ECG with ST segment depression in lateral leads (unchanged from previous ECG when in a.flutter RVR). -KNown history of CAD with [facility] 2014 with * Left Main Coronary Artery The LMCA is angiographically free of disease. * Left Anterior Descending There is a 70% stenosis in the Proximal LAD. The lesion has severely calcification noted. There is a 100% stenosis in the Mid LAD. The lesion has collaterals which feed from left to right and right to left * Circumflex There is a 100% stenosis in the Proximal Circumflex. Distribution supplied by collaterals from FLORES mid LAD and RCA. * Right Coronary Artery There is a 100% stenosis in the Proximal RCA. The lesion has mature collaterals which feed from right to right and right to left feeding the Circumflex. Additional Findings: Grafts * The left internal mammary graft to the Mid LAD is patent. Provides collateralls to OM1 * The saphenous vein graft to the Right PDA is occluded. * The saphenous vein graft to the 1st Marginal is occluded. -On asa, statin, beta corina. -DO not suspect NSTEMI. suspect demand ischemia related to above. No cardaic rehab warranted. (5) CKD (chronic kidney disease) Current Visit: No Status: Chronic Per cardiology: -Known CKD, on HD. -Management per primary and nephrology services. Qualifiers: Chronic kidney disease stage: unspecified stage Qualified Code(s): N18.9 - Chronic kidney disease, unspecified (6) Lung cancer Current Visit: No Status: Chronic Per cardiology: -KNown lung CA. -Management per primary service. Qualifiers: Laterality: right Lung location: hilum of lung Qualified Code(s): C34.01 - Malignant neoplasm of right main bronchus (7) Severe mitral regurgitation Current Visit: No Status: Chronic Per cardiology: -Known severe MR per RUB[facility] 03/2017 -Patient has been referred to [place] for evaluation. Discussion w patient/family: The assessment and plan as outlined above was discussed with the patient who expressed understanding and agreement. All questions were answered. Thank you for involving us in the care of your patient. Please call with any questions. Discussed and reviewed with . History of Present Illness Consult date: 11/10/17 Requesting physician: Angelique Collins Consult reason: a.flutter RVR Chief complaint: shortness of breath History of present illness: Mr. Guardado is a 61 year old male with a relevant past medical history of DM, HTN , hyperlipidemia, ESRD on HD, CAD s/p CABG 2008, carotid stenosis s/p CEA, PAD, tobacco abuse, [place]. Patient presented to [facility] with complaints of increased shortness of breath. Patient also reports increased edema. Denies chest pain. Denies palpitations or fluttering. Patient states he underwent dialysis this morning and states breathing is much improved now. Past Med Surg Social Fam HX - Past Medical History Attestation: Yes The following information was validated with the patient. Source: patient, old records reviewed Medical history: arthritis, cancer, CHF, coronary artery disease, diabetes, dialysis, GERD, hyperlipidemia, hypertension, myocardial infarction, peripheral artery disease, renal disease, other Psychiatric history: anxiety, depression - Past Surgical History Surgical History: angioplasty/stent, carotid endarterectomy, coronary bypass ( CABG), orthopedic, other, other - Social History Smoking Status: Former smoker Smokeless Tobacco Status: No (does not smoke) Alcohol use: none Drug use: none - Family History Brother Adopted: No Family Member Ethnicity: Non- Living Status: Hx Family Cardiac Disorders: Yes Hx Family Respiratory Disorders: Yes (dad black lung) Hx Family Cancer: Yes (mother) Hx Family GI Disorders: No Hx Family Endocrine Disorder: Yes (sister) Hx Family Neuromuscular Disorders: No Hx Family Neurologic Disorders: No Hx Family HEENT Disorders: No Hx Family Autoimmune Disorders: No Sister Family Member Ethnicity: Non- Living Status: Still Living Hx Family Cardiac Disorders: Yes (HD) Hx Family Respiratory Disorders: Yes (COPD) Hx Family Endocrine Disorder: Yes (Thyroid disease) Mother Adopted: No Family Member Ethnicity: Non- Living Status: Hx Family Cardiac Disorders: No Hx Family Respiratory Disorders: No Hx Family Cancer: Yes (bone) Hx Family GI Disorders: No Hx Family Endocrine Disorder: No Hx Family Neuromuscular Disorders: No Hx Family Neurologic Disorders: No Hx Family HEENT Disorders: No Hx Family Autoimmune Disorders: No Father Adopted: No Family Member Ethnicity: Non- Living Status: Age at : 70 Hx Family Cardiac Disorders: No Hx Family Respiratory Disorders: Yes Hx Family Cancer: No Hx Family GI Disorders: No Hx Family Endocrine Disorder: No Hx Family Neuromuscular Disorders: No Hx Family Neurologic Disorders: No Hx Family HEENT Disorders: No Hx Family Autoimmune Disorders: No Medications and Allergies Famotidine [Pepcid] 10 mg PO BID #60 tablet 07/03/15 [Rx] Albuterol Sulfate [Albuterol Inhaler] 2 puff IH Q4HR 07/29/15 [History] Budesonide/Formoterol 160/4.5 [Symbicort] 2 puff IH BIDR 07/29/15 [History] Gabapentin [Neurontin] 100 mg PO TID 07/29/15 [History] Calcium Acetate [Phos-LO] 667 mg PO TIDWM #90 capsule 10/02/15 [Rx] Furosemide [Lasix] 40 mg PO DAILY 08/31/16 [History] Oxygen 2.5 l NS AD 08/31/16 [History] Albuterol Neb [Proventil Neb] 2.5 mg IH Q4HR PRN #30 vial.neb 09/03/16 [Rx] Multivitamin [Multivitamins] 1 cap PO DAILY 11/03/16 [History] Magic Mouthwash [Magic Mouthwash BLM] 10 ml PO QID PRN #240 ml 12/18/16 [Rx] Docusate [Colace] 100 mg PO DAILY #20 capsule 03/02/17 [Rx] Megestrol Acetate [Megace] 800 mg PO DAILY #400 mls 04/12/17 [Rx] Acetylcysteine 20% 600 mg PO BID #60 syringe 09/07/17 [Rx] Atorvastatin [Lipitor] 40 mg PO HS #30 tablet 09/07/17 [Rx] Levalbuterol Neb [Xopenex Neb] 1.25 mg IH Q6H PRN #60 vial.neb 09/07/17 [Rx] Lidocaine/Prilocaine CREAM [Emla] 1 gm TP DAILY PRN tube 09/07/17 [Rx] Ondansetron [Zofran ODT] 8 mg SL Q4HR PRN #60 tab.rapdis 09/07/17 [Rx] Warfarin [Coumadin] 2.5 mg PO 1800 #5 tablet 09/07/17 [Rx] OxyCODONE Immed Rel [Roxicodone 15 MG] 15 mg PO Q8HR PRN #90 tablet 09/24/17 [Rx ] Budesonide/Formoterol 160/4.5 [Symbicort 160/4.5] 1 puff IH BIDR #1 hfa.aer.ad 10/10/17 [Rx] Doxycycline 100 mg PO BID #14 capsule 10/11/17 [Rx] Coreg 25 mg PO BID 11/10/17 [History] Diltiazem 240 mg PO DAILY 11/10/17 [History] Guaifenesin 600 mg PO BID 11/10/17 [History] Phos-LO 667 mg PO TID 11/10/17 [History] 3 Allergy/AdvReac Type Severity Reaction Status Date / Time pollen extracts Allergy Itching Verified 10/11/17 13:38 shellfish derived AdvReac Nausea Verified 10/11/17 13:38 IVP DYE Allergy Intermediate Vomiting Uncoded 10/11/17 13:38 All Systems Review: A 10-system review of systems was performed and is negative for pertinent findings except as documented above in the HPI. - Cardiovascular Cardiovascular: as per HPI, dyspnea at rest, dyspnea on exertion, leg edema Physical Examination Vital Signs, Last 4 Hours Temp Pulse Resp BP 11/10/17 15:02 89 11/10/17 13:05 97.2 F L 14 120/60 11/10/17 12:55 99/66 11/10/17 12:40 114/90 11/10/17 12:25 90/47 General: Conversant, No Apparent Distress HEENT: Atraumatic, Normocephaly, Mucus Membranes Moist Neck: No JVD, Normal carotid pulses Cardiac: Other (Irregularly irregular, Systolic murmur noted. ) Lungs: Normal Breath Sounds, No Wheeze, Rales, Rhonchi Neuro: Alert and responsive, No focal deficits noted Abdomen: Soft, Non-Tender Skin: No rashes noted on visualized skin Musculoskeletal: No Chest Wall Tenderness Extremities: No Clubbing, No Cyanosis, Normal Pulses, Other (1+ bilateral lower extremity pitting edema noted. ) Results 11/10/17 07:31 11/10/17 05:25 Impressions Chest X-Ray 11/09/17 18:29 IMPRESSION: 1. Stable chronic scarring/opacity in the right mid and upper lung zone. 2. Nearly resolved airspace opacities elsewhere in the bilateral lung zones. 3. No new cardiopulmonary disease. D/ / 11/09/2017 19:31:56 Ag[facility] Interpreting Provider: Agnes Garcia MD Active Medications Acetylcysteine (Acetylcysteine 20%) 600 mg PO BID [facility] Stop: 05/12/18 09:01 Last Admin: 11/10/17 08:46 Dose: 600 mg Albuterol Sulfate (Proventil Neb) 2.5 mg IH Q4HR PRN; Protocol PRN Reason: Wheezing Stop: 05/12/18 01:42 Amiodarone HCl (Cordarone) 200 mg PO DAILY [facility] Stop: 05/12/18 15:31 Last Admin: 11/10/17 15:29 Dose: 200 mg Atorvastatin Calcium (Lipitor) 40 mg PO HS [facility] Stop: 05/12/18 21:01 Budesonide/Formoterol Fumarate (Symbicort) 2 puff IH BIDR [facility] PRN Reason: Protocol Stop: 05/12/18 10:01 Last Admin: 11/10/17 09:12 Dose: 2 puff Calcium Acetate (Phos-Lo) 667 mg PO TIDWM [facility] Stop: 05/12/18 08:01 Last Admin: 11/10/17 13:33 Dose: 667 mg Carvedilol (Coreg) 25 mg PO BIDWM [facility] Stop: 05/12/18 01:46 Last Admin: 11/10/17 08:39 Dose: Not Given Diltiazem HCl (Cardizem Cd) 240 mg PO DAILY [facility] Stop: 05/12/18 01:45 Last Admin: 11/10/17 05:27 Dose: 240 mg Docusate Sodium (Colace) 100 mg PO DAILY [facility] PRN Reason: Protocol Stop: 05/12/18 09:01 Last Admin: 11/10/17 08:45 Dose: 100 mg Famotidine (Pepcid) 10 mg PO BIDAC [facility] PRN Reason: Protocol Stop: 05/12/18 07:31 Last Admin: 11/10/17 08:45 Dose: 10 mg Furosemide (Lasix) 80 mg IVP BID [facility] Stop: 05/12/18 10:31 Last Admin: 11/10/17 10:28 Dose: Not Given Gabapentin (Neurontin) 100 mg PO TID [facility] Stop: 05/12/18 09:01 Last Admin: 11/10/17 14:45 Dose: 100 mg Guaifenesin (Mucinex) 600 mg PO BID [facility] Stop: 05/12/18 09:01 Last Admin: 11/10/17 08:45 Dose: 600 mg Sodium Chloride (0.9 % Sodium Chloride) 250 mls @ 937.5 mls/hr IVC .Q16M PRN PRN Reason: Hypotension Stop: 05/12/18 10:09 Sodium Chloride (0.9 % Sodium Chloride) 1,000 mls @ 0 mls/hr PRIME .Q0M [facility] PRN Reason: As Directed Stop: 05/12/18 10:16 Levofloxacin/Dextrose (Levaquin Premix 250 Mg/50 Ml) 250 mg in 50 mls @ 50 mls/ hr IVPB Q48H [facility] PRN Reason: Protocol Stop: 05/13/18 23:01 Levalbuterol HCl (Xopenex) 1.25 mg IH [id number] [facility] Stop: 05/12/18 04:01 Last Admin: 11/10/17 09:07 Dose: 1.25 mg Megestrol Acetate (Megace) 800 mg PO DAILY [facility] PRN Reason: Protocol Stop: 05/12/18 09:01 Last Admin: 11/10/17 08:45 Dose: 800 mg Methylprednisolone (Solu-Medrol) 40 mg IVP Q8H [facility] Stop: 05/12/18 04:01 Last Admin: 11/10/17 12:36 Dose: 40 mg Naloxone HCl (Narcan) 0.4 mg IVP Q2MIN PRN PRN Reason: Opioid Reversal Stop: 05/12/18 00:47 Ondansetron HCl (Zofran) 4 mg IVP Q6HR PRN PRN Reason: Nausea And Vomiting Stop: 05/12/18 00:47 Oxycodone HCl (Roxicodone) 15 mg PO Q8HR PRN PRN Reason: Pain Stop: 05/12/18 01:42 Last Admin: 11/10/17 10:39 Dose: 15 mg Warfarin Sodium (Coumadin Perpt) 1 each PO DAILY@1800 PRN PRN Reason: SEE COMMENTS Stop: 05/12/18 08:01 Warfarin Sodium (Coumadin) 3 mg PO 1800 ONE Stop: 11/10/17 18:01 Laboratory Tests 11/09/17 11/09/17 11/10/17 18:36 18:36 05:25 Hgb Potassium 3.2 L 4.6 D Creatinine 3.88 H Magnesium 1.8 Troponin I 0.07 H* TSH 3.361 11/10/17 07:31 Hgb 10.2 L Potassium Creatinine Magnesium Troponin I TSH - Imaging and Cardiology Chest Xray: report reviewed Echo: report reviewed Cardiac cath: report reviewed - EKG Interpretation EKG results cardiology: personally reviewed (ECG with a.flutter with RVR.), other (Telemetry reviewed with average HR previous 12 hours noted to be 99, atrial flutter. PVCS noted.) Consult Discharge Plan - Plan Referrals: Jeromy Wall MD [Primary Care Provider] - <Lew Cannon - Last Filed: 11/10/17 19:24> Date of Encounter: 11/10/17 - Attending Attestation I have personally performed a face to face evaluation on this patient. I have reviewed and agree with the care plan. History and Exam by me shows: 61 YOM with h/o CABG [facility] 08/12 patent FLORES and occluded vein grafts to RPDA and OM1 presents with Aflutter and RVR in the setting of COPD exacerbation. Patient euvolemic on exam and on appropriate meds for ICM (EF 45%). For his aflutter he is on rate controlling meds (CCB/BB) and amiodarone. Continue flutter CCB/BB/amiodarone and follow up with cardiology as an OP possible consider Flutter ablation. Euvolemic in regards to ICM and EF 45%, no further changes CAD as described above continue medical management COPD management by primary team Assessment and Plan Discussion w patient/family: The assessment and plan as outlined above was discussed with the patient and/or family members who expressed understanding and agreement. All questions were answered. Thank you for involving us in the care of your patient. Please call with any questions. History of Present Illness History of present illness: Mr. Guardado is a 61 year old male All Systems Review: A 10-system review of systems was performed and is negative for pertinent findings except as documented above in the HPI. Physical Examination Vital Signs, Last 4 Hours Resp Pulse Ox 11/10/17 16:14 16 95 Results 11/10/17 07:31 11/10/17 05:25
[2017-11-10] MEDS: *HR* Amiodarone 200 MG TABLET PO SCH (15:29)
[2017-11-10] MEDS ORDERED: *HR* Warfarin 3 MG TABLET PO ONE (18:00)
[2017-11-10] MEDS ORDERED: Levofloxacin 500 MG/100 ML 500 MG/100 ML BAG IVPB SCH (23:00)
[2017-11-11] MEDS: MethylPREDNISolone 40 MG/ML VIAL IVP SCH ×3 (03:38→20:34)
[2017-11-11] MEDS: Levalbuterol Neb 1.25 MG/3 ML IH SCH ×4 (04:31→21:42)
[2017-11-11 05:22] LABS: INR 1.7; Prothrombin Time 18.4 Seconds (9.4-12.1)
[2017-11-11] MEDS: Famotidine 20 MG TABLET PO SCH ×2 (08:38→17:05)
[2017-11-11] MEDS: Gabapentin 100 MG CAPSULE PO SCH ×3 (08:38→20:34)
[2017-11-11] MEDS: Diltiazem CD (24hr) 240 MG CAPSULE PO SCH (08:38)
[2017-11-11] MEDS: *HR* Amiodarone 200 MG TABLET PO SCH (08:38)
[2017-11-11] MEDS: Calcium Acetate 667 MG CAPSULE PO SCH ×3 (08:38→17:05)
[2017-11-11] MEDS: Megestrol Acetate 400 MG/10 ML UDC PO SCH (08:39)
[2017-11-11] MEDS: *HR* Acetylcysteine 20% 600 MG/3 ML ORAL SYRINGE PO SCH ×2 (08:39→20:34)
[2017-11-11] MEDS: Aspirin Enteric Coated 81 MG Tablet PO SCH (08:39)
[2017-11-11] MEDS: Furosemide 40 MG/4 ML VIAL IVP SCH ×2 (08:58→20:28)
[2017-11-11] MEDS: *HR* OxyCODONE Immed Rel 15 MG TABLET PO PRN ×2 (08:58→17:56)
--- NOTE | 2017-11-11 09:10 | Nephrology Progress Note ---
Date of Encounter: 11/11/17 Time of Encounter: 09:08 - Assessment and Plan (1) ESRD (end stage renal disease) on dialysis Current Visit: No Status: Acute HD MWF. Renal vitamins. Renal dose medications. Renal diet. Additional dialysis and ultrafiltration as needed. (2) Atrial flutter with rapid ventricular response Current Visit: Yes Status: Acute Cardiology following rate is controlled. (3) Dyspnea Current Visit: Yes Status: Acute Improved. Qualifiers: Dyspnea type: unspecified Qualified Code(s): R06.00 - Dyspnea, unspecified (4) Anemia Current Visit: No Status: Acute Hemoglobin stable. No acute bleeding. Qualifiers: Anemia type: due to chronic kidney disease Chronic kidney disease stage: on chronic dialysis Qualified Code(s): N18.6 - End stage renal disease; D63.1 - Anemia in chronic kidney disease; D63.1 - Anemia in chronic kidney disease; Z99.2 - Dependence on renal dialysis; Z99.2 - Dependence on renal dialysis; Z99.2 - Dependence on renal dialysis; Z99.2 - Dependence on renal dialysis (5) Hypertension Current Visit: Yes Status: Acute Impression better. He is asymptomatic. Titrate antihypertensive medication as needed. Qualifiers: Qualified Code(s): I10 - Essential (primary) hypertension (6) COPD exacerbation Current Visit: No Status: Acute No active wheezing. This seems to be improved compared to yesterday. Subjective Principal diagnosis: ESRD Interval history: Patient seen. No new complaint. His breathing is better. Objective - Vital Signs Vital signs: Vital Signs Temp Pulse Resp BP Pulse Ox 11/11/17 06:57 98.1 F 88 16 100/63 100 11/11/17 04:34 97.9 F 98 18 101/69 100 11/11/17 04:31 18 100 11/11/17 00:46 97.6 F 102 16 90/50 100 11/10/17 21:09 18 100 11/10/17 19:26 97.6 F 80 16 94/53 97 11/10/17 16:14 16 95 11/10/17 15:19 98.3 F 108 16 128/66 100 11/10/17 15:02 89 11/10/17 13:05 97.2 F L 14 120/60 11/10/17 12:55 99/66 01/13/18 12:40 114/90 11/10/17 12:25 90/47 Intake and Output 11/10/17 11/11/17 11/11/17 23:59 07:59 15:59 Intake Total 480 / 480 Balance 480 / 480 Intake: Oral 480 / 480 Other: Percent of Meal Consumed 60% Weight 59.33 kg Patient Weight 11/11/17 23:59 Weight 59.33 kg - General Appearance General appearance: Present: well-developed, well-nourished EENT: Present: ATNC Respiratory: Present: clear Cardiology: Present: edema (Improved from yesterday. Trace edema bilateral lower extremities. ), regular rate Integumentary: Present: warm and dry Neurologic: Present: alert and oriented x3 Psychiatric: Present: mood/affect appropriate - Lab 11/10/17 07:31 11/10/17 05:25 Most recent lab results Calcium 8.3 mg/dL (8.6-10.3) L 11/10/17 05:25 Phosphorus 3.6 mg/dL (2.7-4.5) 11/10/17 05:25 Magnesium 1.8 mg/dL (1.6-2.6) 11/10/17 05:25 - VTE Documentation of Mechanical Device: Graduated compression elastic hosiery Consult Discharge Plan - Plan Referrals: Jeromy Wall MD [Primary Care Provider] -
[2017-11-11] MEDS: Budesonide/Formoterol 160/4.5 MDI IH SCH ×2 (09:48→21:42)
[2017-11-11] MEDS ORDERED: D5% in Water 1,000 ML IVC PRN (11:14)
[2017-11-11] MEDS ORDERED: *HR* Dextrose 50 % in Water (Syg) 50 ML SYRINGE IVP PRN (11:14)
[2017-11-11] MEDS ORDERED: Dextrose Gel 15 GM/37.5 ML TUBE PO PRN ×2 (11:14)
--- NOTE | 2017-11-11 11:15 | Internal Med Progress Note ---
Date of Encounter: 11/11/17 Time of Encounter: 11:13 - Assessment and plan (1) Atrial flutter with rapid ventricular response Current Visit: Yes Status: Acute Assessment and plan: Triggered by acute COPD exacerbation/viral infection Discontinued Cardizem drip, currently on oral carvedilol and oral diltiazem amiodarone cardiology recommendations appreciated Resumed warfarin, INR is not therapeutic, no history of CVA, no need for bridging (2) Acute exacerbation of chronic obstructive airways disease Current Visit: No Status: Acute Assessment and plan: Acute on chronic hypoxic respiratory failure secondary to acute COPD exacerbation due to rhinovirus/enterovirus bronchitis in combination with acute systolic CHF exacerbation Continue Solu-Medrol, duo nebs May discontinue Levaquin day #2 The patient still makes urine, currently on Lasix IV 80 mg twice a day, strict I 's and O's and daily weight Echocardiogram from August 2017 showed ejection fraction of 45%, moderate to severe eccentric mitral regurgitation and moderate pulmonary hypertension (3) Hypoxia Current Visit: No Status: Acute (4) History of coronary artery bypass graft Current Visit: No Status: Chronic (5) HTN (hypertension) Current Visit: No Status: Chronic Qualifiers: Hypertension type: essential hypertension Qualified Code(s): I10 - Essential (primary) hypertension (6) HLD (hyperlipidemia) Current Visit: No Status: Chronic Qualifiers: Hyperlipidemia type: mixed hyperlipidemia Qualified Code(s): E78.2 - Mixed hyperlipidemia (7) Acute and chronic respiratory failure ([id number]) Current Visit: No Status: Acute Qualifiers: Respiratory failure complication: hypoxia Qualified Code(s): J96.21 - Acute and chronic respiratory failure with hypoxia (8) Type 2 diabetes mellitus Current Visit: No Status: Chronic Assessment and plan: Insulin sliding scale Qualifiers: Diabetes mellitus complication status: with circulatory complication Diabetes mellitus complication detail: with other circulatory complications Diabetes mellitus intermediate insulin use: without intermediate use Qualified Code( s): E11.59 - Type 2 diabetes mellitus with other circulatory complications (9) ESRD (end stage renal disease) on dialysis Current Visit: No Status: Chronic Assessment and plan: Follows with Dr. Veras (10) Acute bronchitis due to Rhinovirus Current Visit: No Status: Acute (11) Squamous cell carcinoma of right lung Current Visit: Yes Status: Acute Assessment and plan: He underwent bronch debulking of endobronchial lesions, cryotherapy 2/17 for hemoptysis Started RT and wk 1 taxol (12/18/16) to control symptoms and as definitive Rx Carbo held due to CKD/dialysis. Consolidation Taxol in February 2017. (12) Hypotension Current Visit: Yes Status: Acute Assessment and plan: recenlty treated for PNA last month, Order ABG for lethargy and CT of the chest, may escalate antibiotc therapy if needed. Qualifiers: Qualified Code(s): I95.9 - Hypotension, unspecified - Subjective Interval history: SOB, hypotensive in the 80s, somnolent, denies CP, no abdominal pain , fever or dysuria ( still makes urine) - Constitutional Vitals: Temp Pulse Resp BP Pulse Ox 97.7 F 98 17 84/45 93 11/11/17 10:51 11/11/17 10:51 11/11/17 10:51 11/11/17 10:51 11/11/17 10:51 General appearance: Present: A&O X 3, no acute distress, answers questions appropriately - Head Head exam: Present: atraumatic, normocephalic - Eye Eye exam: Present: PERRL, conjuntiva pink, sclera anicteric Pupils: Present: PERRL - Neck Neck exam general surgery: Present: supple, trachea midline. Absent: lymphadenopathy - Respiratory Respiratory exam: Present: CTAB, rales (diffuse crackles). Absent: accessory muscle use, rhonchi, wheezes - Cardiovascular Cardiovascular exam: Present: RRR, +S1, +S2. Absent: diastolic murmur, gallop, rubs, systolic murmur - GI/Abdominal GI/Abdominal exam: Present: normal bowel sounds, soft, no peritoneal signs. Absent: distended, tenderness - Extremities Exam Extremities exam: Present: warm, radial pulses palpable and symmetrical. Absent : calf tenderness, cyanotic, pedal edema Additional comments: right upper extremity AVFistula - Neurological Exam Neurological exam: Present: CN II-XII intact, oriented X3, no focal deficits. Absent: pronater drift, facial droop, speech deficit - Skin Skin exam: Present: dry, intact Internal Medicine: Result - Labs CBC & Chem 7: 11/10/17 07:31 11/10/17 05:25 - ABG Interpretation ABG results: PT/INR, D-dimer PT 18.4 Seconds (9.4-12.1) H 11/11/17 05:07 - VTE Documentation of Mechanical Device: Graduated compression elastic hosiery Consult Discharge Plan - Plan Referrals: Jeromy Wall MD [Primary Care Provider] -
[2017-11-11 11:21] LABS: ABG Base Excess -2 mEq/L (-2 to 3); ABG HCO3 22 mEq/L (21-27); ABG Oxygen Saturation 98 % (95-98); ABG PCO2 37 mmHg (35-45); ABG PH 7.38 pH Units (7.32-7.45); ABG PO2 111 mmHg (85-104); ABG TCO2 24 mEq/L (20-26)
[2017-11-11] MEDS: Insulin LISPRO 300 UNITS/3 ML VIAL SQ SCH ×3 (11:50→20:35)
[2017-11-11 12:14] LABS: Hemoglobin 9.9 g/dL (12.9-16.9); Mean Corpuscular HGB Conc 29.1 g/dL (31.6-35.5); Mean Corpuscular Hemoglobin 29.3 pg (28.0-33.3); Mean Corpuscular Volume 100.6 fL (83.0-100.0); Mean Platelet Volume 11.1 fL (9.4-12.4); Platelet Count 156 K/mcL (140-400); Red Blood Count 3.38 M/mcL (4.19-5.50); Red Cell Distribution Width 18.9 % (11.5-14.5)
[2017-11-11 12:47] LABS: Calcium 9.2 mg/dL (8.6-10.3)
[2017-11-11] MEDS ORDERED: 0.9 % Sodium Chloride 1,000 ML IVC ONE (13:45)
[2017-11-11] MEDS ORDERED: Cefepime HCl 500 MG in D5% in Water 100 ML IVPB SCH (14:00)
[2017-11-11] MEDS: Azithromycin 500 MG in D5% in Water 250 ML IVPB SCH (15:22)
[2017-11-11] MEDS ORDERED: *HR* Warfarin 3 MG TABLET PO ONE (18:00)
[2017-11-11] MEDS ORDERED: 0.9 % Sodium Chloride 250 ML IVC ONE ×2 (18:15→19:57)
[2017-11-11 18:28] LABS: ABG Base Excess -11 mEq/L (-2 to 3); ABG HCO3 16 mEq/L (21-27); ABG Oxygen Saturation 80 % (95-98); ABG PCO2 39 mmHg (35-45); ABG PH 7.23 pH Units (7.32-7.45); ABG PO2 53 mmHg (85-104); ABG TCO2 17 mEq/L (20-26)
--- NOTE | 2017-11-11 18:33 | Event Note ---
<SummerDonald J - Last Filed: 11/11/17 18:27> Date of Encounter: 11/11/17 Time of Encounter: 18:28 A rapid response was called and I was the first provider on the scene. The primary nurse reported the patient is here for atrial fibrillation with rapid ventricular response. She reports that he began having difficulty using his right arm and right leg and had a change in LOC. Nurse reports the patient had just been given a PO narcotic approximately 5 minutes ago. Upon my assessment the patient was unable to follow commands, unable to move his right upper or lower extremity to painful stimulus. When compared to left extremity the patient was able to move left upper and left lower extremity with painful stimulus. Her blood glucose was obtained and although I do not remember the numbers exactly was greater than 100. Vital signs are obtained and his blood pressure was found to be 60s/40s a 500 mL normal saline fluid bolus was ordered. I have ordered a stat CT of the head to rule out CVA. I will continue to follow the patient. <Geronimo Pantoja P - Last Filed: 11/11/17 19:38> Date of Encounter: 11/11/17 I examined this patient and my medical decision-making was reviewed with the Resident Physician/RIVET BUCKER. I agree with the documented findings, disposition and treatment plan as described except to the extent set forth below. Care passed onto the night team.
[2017-11-11 18:52] LABS: Calcium 8.7 mg/dL (8.6-10.3); Magnesium 2.2 mg/dL (1.6-2.6); Potassium 5.6 mEq/L (3.5-5.1)
[2017-11-11 19:08] LABS: Hematocrit 33.5 % (37.5-50.1); Immature Granulocytes % 0.5 % (0-4); Immature Platelets 4.9 % (1.1-6.1); Lymphocytes # 0.5 K/mcL (0.6-4.6); Lymphocytes % 4.8 %; Mean Corpuscular HGB Conc 29.6 g/dL (31.6-35.5); Mean Corpuscular Hemoglobin 29.7 pg (28.0-33.3); Mean Corpuscular Volume 100.6 fL (83.0-100.0); Mean Platelet Volume 11.5 fL (9.4-12.4); Monocytes # 0.3 K/mcL (0.0-1.3); Monocytes % 2.9 %; Neutrophils # 8.5 K/mcL (1.6-8.9); Platelet Count 170 K/mcL (140-400); Red Blood Count 3.33 M/mcL (4.19-5.50); Red Cell Distribution Width 18.8 % (11.5-14.5); Segmented Neutrophils % 91.8 %
[2017-11-11 19:11] LABS: Hemoglobin 9.9 g/dL (12.9-16.9)
[2017-11-11] MEDS ORDERED: Vancomycin 750 MG in D5% in Water 250 ML IVPB SCH (20:00)
[2017-11-11] MEDS: Fluticasone Propionate Nasal 50 MCG/SPRAY BOTTLE NS SCH (20:35)
[2017-11-11] MEDS ORDERED: Vancomycin 1,000 MG in D5% in Water 250 ML IVPB ONE (21:00)
[2017-11-11] MEDS ORDERED: Levofloxacin 250 MG/50 ML 250 MG/50 ML BAG IVPB SCH (23:00)
[2017-11-12] MEDS: MethylPREDNISolone 40 MG/ML VIAL IVP SCH ×3 (03:49→21:13)
[2017-11-12] MEDS: *HR* OxyCODONE Immed Rel 15 MG TABLET PO PRN ×2 (03:50→17:36)
[2017-11-12] MEDS: Levalbuterol Neb 1.25 MG/3 ML IH SCH ×4 (04:04→23:13)
[2017-11-12 04:38] LABS: Hematocrit 31.8 % (37.5-50.1); Hemoglobin 9.6 g/dL (12.9-16.9); Immature Granulocytes % 0.3 % (0-4); Lymphocytes # 0.3 K/mcL (0.6-4.6); Lymphocytes % 3.4 %; Mean Corpuscular HGB Conc 30.2 g/dL (31.6-35.5); Mean Corpuscular Hemoglobin 29.7 pg (28.0-33.3); Mean Corpuscular Volume 98.5 fL (83.0-100.0); Mean Platelet Volume 10.7 fL (9.4-12.4); Monocytes # 0.2 K/mcL (0.0-1.3); Monocytes % 2.8 %; Neutrophils # 8.1 K/mcL (1.6-8.9); Platelet Count 155 K/mcL (140-400); Red Blood Count 3.23 M/mcL (4.19-5.50); Red Cell Distribution Width 18.8 % (11.5-14.5); Segmented Neutrophils % 93.5 %
[2017-11-12 04:43] LABS: INR 2.2; Prothrombin Time 24.3 Seconds (9.4-12.1)
[2017-11-12 04:57] LABS: Hepatitis B Surface Antibody 0.71 mIU/mL
[2017-11-12 05:13] LABS: Calcium 8.5 mg/dL (8.6-10.3); Potassium 4.7 mEq/L (3.5-5.1)
[2017-11-12] MEDS ORDERED: 0.9 % Sodium Chloride 1,000 ML IVC SCH (07:45)
--- NOTE | 2017-11-12 07:48 | Internal Med Progress Note ---
Date of Encounter: 11/12/17 Time of Encounter: 07:46 - Assessment and plan (1) Atrial flutter with rapid ventricular response Current Visit: Yes Status: Acute Assessment and plan: Triggered by acute COPD exacerbation/viral infection/positive for entero- rhinovirus and possible pneumonia with hypotension Discontinued Cardizem drip, currently on oral carvedilol and oral diltiazem ( may be given a blood pressure allows) Continue amiodarone cardiology recommendations appreciated Start IV fluids Consider pressors if not responding Resumed warfarin, INR is therapeutic, no history of CVA Continue cefepime, azithromycin and vancomycin day #2, May de-escalate antibiotics if the patient improves CT scan of the chest showed: Moderate severe emphysema. Architectural distortion and increased density in the right perihilar and posterior right upper lung which is very similar to the prior study 07/10/2017 likely related to prior neoplasm status post radiation treatment. Mild patchy ground-glass opacity within the left lower lobe and lingula, likely infectious pneumonitis. (2) Acute exacerbation of chronic obstructive airways disease Current Visit: No Status: Acute Assessment and plan: Acute on chronic hypoxic respiratory failure secondary to acute COPD exacerbation due to rhinovirus/enterovirus bronchitis Continue Solu-Medrol, duo nebs Discontinued Levaquin The patient still makes urine, stop Lasix IV due to hypotension, strict I's and O's and daily weight Echocardiogram from August 2017 showed ejection fraction of 45%, moderate to severe eccentric mitral regurgitation and moderate pulmonary hypertension (3) Hypoxia Current Visit: No Status: Acute (4) History of coronary artery bypass graft Current Visit: No Status: Chronic (5) HTN (hypertension) Current Visit: No Status: Chronic Qualifiers: Hypertension type: essential hypertension Qualified Code(s): I10 - Essential (primary) hypertension (6) HLD (hyperlipidemia) Current Visit: No Status: Chronic Qualifiers: Hyperlipidemia type: mixed hyperlipidemia Qualified Code(s): E78.2 - Mixed hyperlipidemia (7) Acute and chronic respiratory failure ([id number]) Current Visit: No Status: Acute Qualifiers: Respiratory failure complication: hypoxia Qualified Code(s): J96.21 - Acute and chronic respiratory failure with hypoxia (8) Type 2 diabetes mellitus Current Visit: No Status: Chronic Assessment and plan: Insulin sliding scale Qualifiers: Diabetes mellitus complication status: with circulatory complication Diabetes mellitus complication detail: with other circulatory complications Diabetes mellitus tank terminal gauger insulin use: without custodial use Qualified Code( s): E11.59 - Type 2 diabetes mellitus with other circulatory complications (9) ESRD (end stage renal disease) on dialysis Current Visit: No Status: Chronic Assessment and plan: Follows with Dr. Veras (10) Acute bronchitis due to Rhinovirus Current Visit: No Status: Acute (11) Squamous cell carcinoma of right lung Current Visit: Yes Status: Acute Assessment and plan: He underwent bronch debulking of endobronchial lesions, cryotherapy 12/15 for hemoptysis Started RT and wk 1 taxol (12/18/16) to control symptoms and as definitive Rx Carbo held due to CKD/dialysis. Consolidation Taxol in February 2017. (12) Hypotension Current Visit: Yes Status: Acute Assessment and plan: recenlty treated for PNA last month, Qualifiers: Qualified Code(s): I95.9 - Hypotension, unspecified (13) Lactic acidosis Current Visit: Yes Status: Acute Assessment and plan: Resolved (14) Hyperkalemia Current Visit: No Status: Acute Assessment and plan: Resolved with Kayexalate - Subjective Interval history: Became confused last night. Apparently right upper extremities became weak after receiving a narcotic but recovered. CT was not done. Has no deficits at the moment SOB, hypotensive in the 80s, somnolent, denies CP, no abdominal pain , fever or dysuria ( still makes urine) - Constitutional Vitals: Temp Pulse Resp BP Pulse Ox 98.4 F 110 14 81/57 100 11/12/17 07:37 11/12/17 06:00 11/12/17 06:00 11/12/17 06:00 11/12/17 06:00 General appearance: Present: A&O X 3, no acute distress, answers questions appropriately Exam: - Head Head exam: Present: atraumatic, normocephalic - Eye Eye exam: Present: PERRL, conjuntiva pink, sclera anicteric Pupils: Present: PERRL - Neck Neck exam general surgery: Present: supple, trachea midline. Absent: lymphadenopathy - Respiratory Respiratory exam: Present: CTAB, rales (diffuse crackles). Absent: accessory muscle use, rhonchi, wheezes - Cardiovascular Cardiovascular exam: Present: RRR, +S1, +S2. Tachycardic. Absent: diastolic murmur, gallop, rubs, systolic murmur - GI/Abdominal GI/Abdominal exam: Present: normal bowel sounds, soft, no peritoneal signs. Absent: distended, tenderness - Extremities Exam Extremities exam: Present: warm, radial pulses palpable and symmetrical. Absent : calf tenderness, cyanotic, pedal edema Additional comments: right upper extremity AVFistula - Neurological Exam Neurological exam: Present: CN II-XII intact, oriented X3, no focal deficits. Absent: pronater drift, facial droop, speech deficit - Skin Skin exam: Present: dry, intact Internal Medicine: Result - Labs CBC & Chem 7: 11/12/17 04:28 11/12/17 04:28 Labs: Short CBC 11/11/17 11/11/17 11/12/17 Range/Units 12:07 18:59 04:28 WBC 7.7 D 9.3 8.6 (4.3-11.1) K/mcL Hgb 9.9 L 9.9 L 9.6 L (12.9-16.9) g/dL Hct 34.0 L 33.5 L 31.8 L (37.5-50.1) % Plt Count 156 170 155 (140-400) K/mcL Neutrophils # 8.5 8.1 (1.6-8.9) K/mcL BMP 11/11/17 11/11/17 11/11/17 12:07 18:27 18:59 Sodium 130 L 128 L Potassium 6.0 H 5.6 H 5.8 H Chloride 95 L 93 L Carbon Dioxide 21 L 14 L BUN 84 H 89 H Creatinine 6.08 H 6.36 H Glucose 265 H 307 H Calcium 9.2 8.7 11/12/17 04:28 Sodium 139 D Potassium 4.7 Chloride 94 L Carbon Dioxide 28 BUN 106 H Creatinine 6.94 H Glucose 127 H Calcium 8.5 L Cardiac Enzymes 11/11/17 Range/Units 18:27 Troponin I 0.05 H* (< 0.04) ng/mL - ABG Interpretation ABG results: ABG ABG pH 7.23 pH Units (7.32-7.45) L 11/11/17 18:24 ABG pCO2 39 mmHg (35-45) 11/11/17 18:24 ABG pO2 53 mmHg (85-104) L 11/11/17 18:24 ABG O2 Saturation 80 % (95-98) L 11/11/17 18:24 PT/INR, D-dimer PT 24.3 Seconds (9.4-12.1) H 11/12/17 04:28 - Impressions Impressions Chest CT 11/11/17 11:06 IMPRESSION: Moderate severe emphysema. Architectural distortion and increased density in the right perihilar and posterior right upper lung which is very similar to the prior study 07/10/2017 likely related to prior neoplasm status post radiation treatment. Mild patchy ground-glass opacity within the left lower lobe and lingula, likely infectious pneumonitis. D/ / Eboni Jeffers Cha, MD / Eboni Jeffers Cha, MD Interpreting Provider: Eboni Jeffers Cha, MD - VTE Documentation of Mechanical Device: Graduated compression elastic hosiery Consult Discharge Plan - Plan Referrals: Jeromy Wall MD [Primary Care Provider] -
[2017-11-12] MEDS: Megestrol Acetate 400 MG/10 ML UDC PO SCH (08:07)
[2017-11-12] MEDS: Fluticasone Propionate Nasal 50 MCG/SPRAY BOTTLE NS SCH (08:07)
[2017-11-12] MEDS: *HR* Amiodarone 200 MG TABLET PO SCH (08:08)
[2017-11-12] MEDS: *HR* Acetylcysteine 20% 600 MG/3 ML ORAL SYRINGE PO SCH ×2 (08:08→21:14)
[2017-11-12] MEDS: Calcium Acetate 667 MG CAPSULE PO SCH ×3 (08:08→17:36)
[2017-11-12] MEDS: Aspirin Enteric Coated 81 MG Tablet PO SCH (08:09)
[2017-11-12] MEDS: Famotidine 20 MG TABLET PO SCH (08:09)
[2017-11-12] MEDS: Insulin LISPRO 300 UNITS/3 ML VIAL SQ SCH ×4 (08:09→21:16)
[2017-11-12] MEDS: Gabapentin 100 MG CAPSULE PO SCH ×2 (08:09→21:14)
[2017-11-12] MEDS: Diltiazem CD (24hr) 240 MG CAPSULE PO SCH ×2 (08:44→15:11)
[2017-11-12] MEDS ORDERED: 0.9 % Sodium Chloride 250 ML IVC PRN (08:59)
[2017-11-12] MEDS ORDERED: Albumin 25% 12.5gm/50mL 12.5 GM/50 ML IV.SOLN IVPB PRN (08:59)
[2017-11-12] MEDS ORDERED: 0.9 % Sodium Chloride 1,000 ML PRIME SCH (09:00)
[2017-11-12] MEDS ORDERED: 0.9 % Sodium Chloride 1,000 ML ONE (09:27)
[2017-11-12] MEDS ORDERED: Albumin 25% 12.5gm/50mL 12.5 GM/50 ML IV.SOLN ONE (09:27)
[2017-11-12] MEDS: Budesonide/Formoterol 160/4.5 MDI IH SCH ×2 (10:25→23:13)
--- NOTE | 2017-11-12 11:23 | Nephrology Progress Note ---
Date of Encounter: 11/12/17 Time of Encounter: 11:20 - Assessment and Plan (1) ESRD (end stage renal disease) on dialysis Current Visit: No Status: Acute HD MWF. Renal vitamins. Renal dose medications. Renal diet. Additional dialysis and ultrafiltration as needed. Patient seen while on dialysis. (2) Atrial flutter with rapid ventricular response Current Visit: Yes Status: Acute Cardiology following. Still tachycardic. (3) Dyspnea Current Visit: Yes Status: Acute Improved. Qualifiers: Dyspnea type: unspecified Qualified Code(s): R06.00 - Dyspnea, unspecified (4) Anemia Current Visit: No Status: Acute Hemoglobin stable. No acute bleeding. Qualifiers: Anemia type: due to chronic kidney disease Chronic kidney disease stage: on chronic dialysis Qualified Code(s): N18.6 - End stage renal disease; D63.1 - Anemia in chronic kidney disease; D63.1 - Anemia in chronic kidney disease; Z99.2 - Dependence on renal dialysis; Z99.2 - Dependence on renal dialysis; Z99.2 - Dependence on renal dialysis; Z99.2 - Dependence on renal dialysis (5) Hypertension Current Visit: Yes Status: Acute Titrate antihypertensive medication as needed. Qualifiers: Qualified Code(s): I10 - Essential (primary) hypertension (6) COPD exacerbation Current Visit: No Status: Acute No active wheezing. This seems to be improved compared to yesterday. (7) Foot pain, left Current Visit: Yes Status: Acute Mild discomfort with no erythema and minimal discomfort. Will check uric acid. Per primary team. Subjective Principal diagnosis: ESRD Interval history: Patient seen. Overnight events noted. Patient is now in the ICU. His breathing improved overnight. He denies chest pain. No lightheadedness or dizziness. He does complain of discomfort in his left foot concentrated in the area of his heel. Objective - Vital Signs Vital signs: Vital Signs Temp Pulse Resp BP Pulse Ox 11/12/17 11:15 98/75 11/12/17 11:00 129 22 108/82 100 11/12/17 10:45 126/87 11/12/17 10:30 109/92 11/12/17 10:26 24 100 11/12/17 10:15 106/79 11/12/17 10:00 97.9 F 121 24 110/76 99 11/12/17 09:06 123 23 78/53 97 11/12/17 08:00 128 24 85/61 96 11/12/17 07:37 98.4 F 11/12/17 06:00 110 14 81/57 100 11/12/17 05:03 98 F 11/12/17 05:00 121 20 82/57 99 11/12/17 04:05 20 99 11/12/17 04:00 110 17 86/59 100 11/12/17 03:00 108 17 79/53 98 11/12/17 02:00 118 17 80/61 99 11/12/17 01:00 97 17 90/62 99 11/12/17 00:21 97.9 F 11/12/17 00:00 116 17 93/66 94 11/11/17 23:00 100 17 99/73 99 11/11/17 22:00 105 19 96/77 100 11/11/17 21:43 20 92 11/11/17 21:00 112 16 99/65 91 11/11/17 20:00 98 17 82/45 96 11/11/17 19:00 97 22 85/43 96 11/11/17 18:45 97.4 F L 86 20 82/62 98 11/11/17 16:24 97.6 F 52 17 88/48 100 11/11/17 15:45 16 100 Intake and Output 11/11/17 11/12/17 11/12/17 23:59 07:59 15:59 Intake Total 370 / 370 600 / 600 Output Total 50 / 50 Balance 320 / 320 600 / 600 Intake: IV Fluids 250 / 250 0.9 % Sodium Chloride 250 ML @ 250 / 250 937.5 mls/hr IVC .Q16M ONE Rx#: [id number] Oral 120 / 120 0 / 0 Intake, Rinseback and Flushes 600 / 600 Output: Urine 50 / 50 Other: Stool Size Small Stool Consistency loose Stool Color Brown Weight 61 kg Blood Glucose* 313 155 Hemodialysis Net Fluid Removed 572 (mL) Patient Weight 11/12/17 23:59 Weight 61 kg - General Appearance General appearance: Present: well-developed, well-nourished EENT: Present: ATNC Neck: Present: supple Respiratory: Present: wheezing, course breath sounds, rhonchi Cardiology: Present: no edema Additional Comments: tachycardic, left radial pulse 2+ Dialysis Vascular Access: Arteriovenous Fistula (Right forearm) thrill: Yes bruit: Yes Gastrointestinal: Present: no tenderness Integumentary: Present: warm and dry. Absent: erythema Neurologic: Present: alert and oriented x3 Musculoskeletal: Present: no cyanosis Psychiatric: Present: mood/affect appropriate - Lab 11/12/17 04:28 11/12/17 12:43 Most recent lab results ABG pH 7.23 pH Units (7.32-7.45) L 11/11/17 18:24 ABG pCO2 39 mmHg (35-45) 11/11/17 18:24 ABG pO2 53 mmHg (85-104) L 11/11/17 18:24 ABG HCO3 16 mEq/L (21-27) L 11/11/17 18:24 ABG O2 Saturation 80 % (95-98) L 11/11/17 18:24 Calcium 8.5 mg/dL (8.6-10.3) L 11/12/17 04:28 Phosphorus 3.6 mg/dL (2.7-4.5) 11/10/17 05:25 Magnesium 2.2 mg/dL (1.6-2.6) 11/11/17 18:27 - VTE Documentation of Mechanical Device: Graduated compression elastic hosiery Consult Discharge Plan - Plan Referrals: Jeromy Wall MD [Primary Care Provider] -
[2017-11-12 13:05] LABS: Albumin 3.8 g/dL (3.5-5.7); Albumin/Globulin Ratio 1.1 (1.1-2.2); Bilirubin,Total 0.7 mg/dL (0.3-1.0); Calcium 8.9 mg/dL (8.6-10.3); Globulin 3.5 g/dL (2.4-3.5); Potassium 3.6 mEq/L (3.5-5.1); Total Protein 7.3 g/dL (6.4-8.9)
[2017-11-12] MEDS: Azithromycin 500 MG in D5% in Water 250 ML IVPB SCH (15:16)
--- NOTE | 2017-11-12 15:22 | Electrocardiograph Report ---
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
[2017-11-12] MEDS ORDERED: Cefepime HCl 500 MG in D5% in Water 100 ML IVPB SCH (16:00)
[2017-11-12] MEDS ORDERED: *HR* Warfarin 2 MG TABLET PO ONE (18:00)
[2017-11-12] MEDS ORDERED: Vancomycin 1,000 MG in D5% in Water 250 ML IVPB ONE (20:56)
[2017-11-12] MEDS ORDERED: Famotidine 20 MG TABLET PO SCH (21:00)
[2017-11-13] MEDS: *HR* OxyCODONE Immed Rel 15 MG TABLET PO PRN ×2 (02:15→10:42)
[2017-11-13] MEDS: Levalbuterol Neb 1.25 MG/3 ML IH SCH ×4 (04:05→21:12)
[2017-11-13] MEDS: MethylPREDNISolone 40 MG/ML VIAL IVP SCH ×3 (04:40→20:20)
[2017-11-13 04:54] LABS: Hematocrit 32.1 % (37.5-50.1); Hemoglobin 9.6 g/dL (12.9-16.9); Mean Corpuscular HGB Conc 29.9 g/dL (31.6-35.5); Mean Corpuscular Hemoglobin 29.6 pg (28.0-33.3); Mean Corpuscular Volume 99.1 fL (83.0-100.0); Mean Platelet Volume 11.3 fL (9.4-12.4); Platelet Count 142 K/mcL (140-400); Red Blood Count 3.24 M/mcL (4.19-5.50); Red Cell Distribution Width 18.9 % (11.5-14.5)
[2017-11-13 05:01] LABS: Calcium 8.4 mg/dL (8.6-10.3); Potassium 4.9 mEq/L (3.5-5.1); Uric Acid 5.4 mg/dL (2.3-7.6)
[2017-11-13 06:55] LABS: INR 2.1
[2017-11-13] MEDS ORDERED: *HR* Midazolam HCl 5 MG/5 ML VIAL IVP ONE (07:35)
[2017-11-13] MEDS ORDERED: *HR* Rocuronium Bromide 50 MG/5 ML VIAL IVC ONE (07:35)
[2017-11-13] MEDS: Aspirin Enteric Coated 81 MG Tablet PO SCH (07:59)
[2017-11-13] MEDS: Diltiazem CD (24hr) 240 MG CAPSULE PO SCH (07:59)
[2017-11-13] MEDS: Renal Vitamin 1 MG CAPSULE PO SCH (07:59)
[2017-11-13] MEDS: Gabapentin 100 MG CAPSULE PO SCH ×2 (08:00→20:18)
[2017-11-13] MEDS: Megestrol Acetate 400 MG/10 ML UDC PO SCH (08:00)
[2017-11-13] MEDS: Calcium Acetate 667 MG CAPSULE PO SCH ×3 (08:00→18:45)
[2017-11-13] MEDS: *HR* Amiodarone 200 MG TABLET PO SCH (08:00)
[2017-11-13] MEDS: *HR* Acetylcysteine 20% 600 MG/3 ML ORAL SYRINGE PO SCH ×2 (08:01→20:20)
[2017-11-13] MEDS: Insulin LISPRO 300 UNITS/3 ML VIAL SQ SCH ×4 (08:01→23:44)
[2017-11-13] MEDS ORDERED: *HR* Norepinephrine 4 MG/4 ML VIAL IVC ONE (08:11)
--- NOTE | 2017-11-13 09:15 | Internal Med Progress Note ---
Date of Encounter: 11/13/17 Time of Encounter: 09:13 - Assessment and plan (1) Acute exacerbation of chronic obstructive airways disease Current Visit: No Status: Acute Assessment and plan: Acute on chronic hypoxic respiratory failure secondary to acute COPD exacerbation due to rhinovirus/enterovirus bronchitis Plan: Increase Solu-Medrol dosing to 60 mg every 6, continue inhaled bronchodilators, obtain ABG postintubation. He had hemodialysis today with minimal fluid removal however he was hypotensive and unresponsive post hemodialysis as well as bradycardic and he was given a 250 mL bolus. Echocardiogram from August 2017 showed ejection fraction of 45%, moderate to severe eccentric mitral regurgitation and moderate pulmonary hypertension (2) Community acquired pneumonia Current Visit: No Status: Acute Assessment and plan: Continue with cefepime, azithromycin and vancomycin. We will obtain sputum cultures. Qualifiers: Laterality: right Lung location: unspecified part of lung Qualified Code( s): J18.9 - Pneumonia, unspecified organism (3) HTN (hypertension) Current Visit: No Status: Chronic Assessment and plan: Continue with Coreg as his blood pressure tolerates. Qualifiers: Hypertension type: essential hypertension Qualified Code(s): I10 - Essential (primary) hypertension (4) ESRD (end stage renal disease) on dialysis Current Visit: No Status: Chronic Assessment and plan: Discussed the case with nephrology. They recommended one extra session of hemodialysis today. (5) Atrial flutter Current Visit: No Status: Chronic Qualifiers: Atrial flutter type: typical Qualified Code(s): I48.3 - Typical atrial flutter (6) Cardiomyopathy Current Visit: No Status: Chronic Assessment and plan: Follow-up with cardiology. Qualifiers: Cardiomyopathy type: unspecified Qualified Code(s): I42.9 - Cardiomyopathy , unspecified (7) Acute bronchitis due to Rhinovirus Current Visit: No Status: Acute Assessment and plan: Supportive care. (8) Acute and chronic respiratory failure with hypoxia Current Visit: Yes Status: Acute (9) Metabolic encephalopathy Current Visit: Yes Status: Acute Assessment and plan: Patient was unresponsive, hypotensive and bradycardic as well as hypoxic after hemodialysis. He had agonal breathing. His ABG showed hypoxic and hypercarbic respiratory failure as well as combined metabolic and respiratory acidosis. I decided to emergently intubate the patient for respiratory failure and airway protection. Please see procedure note. Patient will be mechanically ventilated with assist control, tidal volume of 550 , respiratory rate of 14, FiO2 to start at 100% and titrate down as tolerated to maintain saturation above 92%. PEEP of 5. We will obtain a chest x-ray for ET tube placement and repeat ABG. The high probability of emergent and significant clinical decompensation with potential impairment of cardiovascular and respiratory function required my full attention and presence at the bedside. I spent 50 minutes of critical care time which involved decision making of high complexity to assess, manipulate, and support vital organ system, in order to prevent further life threatening deterioration of the patient's condition. The critical care time was spent in the patient's room involved obtaining updated history from the nursing staff, examining the patient, reviewing EKGs, imaging studies and laboratory data, ordering medications and laboratory studies, and reevaluating for clinical response. The time took to perform any procedures was not included in the critical care time stated above and is billed separately. - Subjective Interval history: Patient reports severe shortness of breath with minimal exertion such as sitting up in bed, associated with cough productive of melendez sputum. Denies chest pain, nausea, fever and diaphoresis. Heart rate has been elevated in the 120s at rest and per the patient's primary nurse goes upward exertion. At 4 PM he is afternoon after returning from dialysis the patient was found to be unresponsive, hypotensive and bradycardic. I have reevaluated the patient at the bedside and found to be him to be unresponsive to pain, agonal breathing and bradycardic with heart rates in the 40s. Monitor indicates atrial flutter with slow ventricular response. The blood pressure 90 systolic. Oxygen saturation in the mid 80s. - Constitutional Vitals: Temp Pulse Resp BP Pulse Ox 98.0 F 128 25 91/68 99 11/13/17 07:26 11/13/17 07:36 11/13/17 07:36 11/13/17 07:36 11/13/17 07:36 General appearance: Present: A&O X 3, no acute distress, answers questions appropriately - Eye Eye exam: Present: PERRL, conjuntiva pink, sclera anicteric Pupils: Present: PERRL - Neck Neck exam general surgery: Present: supple, trachea midline. Absent: lymphadenopathy - Respiratory Respiratory exam: Present: rales, rhonchi, wheezes, tachypnea. Absent: accessory muscle use - Cardiovascular Cardiovascular exam: Present: irregular rhythm, +S1, +S2, tachycardia. Absent: diastolic murmur, gallop, rubs, systolic murmur - GI/Abdominal GI/Abdominal exam: Present: normal bowel sounds, soft, no peritoneal signs. Absent: distended, tenderness - Extremities Exam Extremities exam: Present: warm, radial pulses palpable and symmetrical. Absent : calf tenderness, cyanotic, pedal edema - Neurological Exam Neurological exam: Present: CN II-XII intact, oriented X3, no focal deficits. Absent: pronater drift, facial droop, speech deficit - Skin Skin exam: Present: dry, intact Internal Medicine: Result - Labs CBC & Chem 7: 11/13/17 04:35 11/13/17 04:35 Labs: Short CBC 11/13/17 Range/Units 04:35 WBC 8.0 (4.3-11.1) K/mcL Hgb 9.6 L (12.9-16.9) g/dL Hct 32.1 L (37.5-50.1) % Plt Count 142 (140-400) K/mcL BMP 11/12/17 11/13/17 12:43 04:35 Sodium 134 L 136 Potassium 3.6 4.9 D Chloride 95 L 93 L Carbon Dioxide 28 28 BUN 42 H 77 H Creatinine 3.05 H 5.23 H Glucose 158 H 110 H Calcium 8.9 8.4 L Liver Function 11/12/17 Range/Units 12:43 Total Bilirubin 0.7 (0.3-1.0) mg/dL AST 36 (13-39) Units/L ALT 41 (7-52) Units/L Alkaline Phosphatase 138 H (34-104) Units/L Albumin 3.8 (3.5-5.7) g/dL - ABG Interpretation ABG results: ABG ABG pH 7.23 pH Units (7.32-7.45) L 11/11/17 18:24 ABG pCO2 39 mmHg (35-45) 11/11/17 18:24 ABG pO2 53 mmHg (85-104) L 11/11/17 18:24 ABG O2 Saturation 80 % (95-98) L 11/11/17 18:24 PT/INR, D-dimer PT 23.0 Seconds (9.4-12.1) H 11/13/17 06:40 - VTE Documentation of Mechanical Device: Graduated compression elastic hosiery Consult Discharge Plan - Plan Referrals: Jeromy Wall MD [Primary Care Provider] -
[2017-11-13] MEDS: Fluticasone Propionate Nasal 50 MCG/SPRAY BOTTLE NS SCH (09:45)
[2017-11-13] MEDS: Budesonide/Formoterol 160/4.5 MDI IH SCH ×2 (10:31→21:12)
--- NOTE | 2017-11-13 12:28 | Nephrology Progress Note ---
Date of Encounter: 11/13/17 Time of Encounter: 12:28 - Assessment and Plan (1) ESRD (end stage renal disease) on dialysis Current Visit: No Status: Acute HD MWF. Renal vitamins. Renal dose medications. Renal diet. Additional dialysis and ultrafiltration as needed. Will perform UF today secondary to volume overload state with dyspnea. Check vitamin D level. (2) Atrial flutter with rapid ventricular response Current Visit: Yes Status: Acute Cardiology following. Still tachycardic, but heart rate is trending down. (3) Anemia Current Visit: No Status: Acute Hemoglobin stable. Iron stores. Vitamin b12 and folate. No acute bleeding. Qualifiers: Anemia type: due to chronic kidney disease Chronic kidney disease stage: on chronic dialysis Qualified Code(s): N18.6 - End stage renal disease; D63.1 - Anemia in chronic kidney disease; D63.1 - Anemia in chronic kidney disease; Z99.2 - Dependence on renal dialysis; Z99.2 - Dependence on renal dialysis; Z99.2 - Dependence on renal dialysis; Z99.2 - Dependence on renal dialysis (4) Hypertension Current Visit: Yes Status: Acute Titrate antihypertensive medication as needed. Qualifiers: Qualified Code(s): I10 - Essential (primary) hypertension (5) COPD exacerbation Current Visit: No Status: Acute Mild wheezing. Rhinovirus positive. Patient with some pulmonary edema. Per primary team. (6) Foot pain, left Current Visit: Yes Status: Acute Per primary team. Subjective Principal diagnosis: ESRD Interval history: Patient seen this AM. He is sitting up in bed and states he is dyspneic. No other new complaint. Objective - Vital Signs Vital signs: Vital Signs Temp Pulse Resp BP Pulse Ox 11/13/17 11:38 98.5 F 11/13/17 10:32 20 96 11/13/17 09:30 93 24 110/72 97 11/13/17 08:30 128 26 96/68 98 11/13/17 07:36 123 25 91/68 99 11/13/17 07:26 98.0 F 11/13/17 06:00 112 17 84/54 99 11/13/17 05:00 108 15 86/62 95 11/13/17 04:05 24 76/57 97 11/13/17 04:00 108 14 76/57 92 11/13/17 03:00 98.0 F 100 24 87/73 95 11/13/17 02:00 91 28 101/68 99 11/13/17 01:00 96 25 96/69 99 11/13/17 00:53 98.2 F 11/13/17 00:00 81 24 86/62 100 11/12/17 23:23 61 11/12/17 23:00 99 24 92/65 99 11/12/17 22:00 96 18 95/77 100 11/12/17 21:00 96 18 107/71 100 11/12/17 20:27 98.1 F 11/12/17 20:00 105 18 99/70 100 11/12/17 19:00 78 18 95/52 100 11/12/17 18:00 128 23 114/60 100 11/12/17 17:00 121 22 126/92 99 11/12/17 16:00 130 23 119/81 100 11/12/17 15:38 18 99 11/12/17 15:30 97.9 F 11/12/17 14:00 132 23 106/72 100 11/12/17 13:30 109/86 11/12/17 13:15 112/99 11/12/17 13:05 133 23 109/86 100 11/12/17 13:00 131/89 11/12/17 12:45 128/95 11/12/17 12:40 147/52 11/12/17 12:30 119/94 Intake and Output 11/12/17 11/13/17 11/13/17 23:59 07:59 15:59 Intake Total 120 / 120 120 / 120 360 / 360 Output Total 100 / 100 100 / 100 Balance 20 / 20 20 / 20 360 / 360 Intake: Oral 120 / 120 120 / 120 360 / 360 Output: Urine 100 / 100 Catheter 100 / 100 Other: Meal Dinner Breakfast Percent of Meal Consumed 50% 100% Stool Size Large Stool Consistency soft Stool Color Brown # Bowel Movements 1 Weight 64.3 kg Blood Glucose* 297 145 276 Patient Weight 11/13/17 23:59 Weight 64.3 kg - General Appearance General appearance: Present: well-developed, well-nourished, chronically ill Exam: mild respiratory distress EENT: Present: ATNC Neck: Present: supple Respiratory: Present: wheezing (faint), rales, rhonchi Cardiology: Present: edema Additional Comments: Heart rate is tachycardic. Dialysis Vascular Access: Arteriovenous Fistula Integumentary: Present: warm and dry Neurologic: Present: alert and oriented x3 Psychiatric: Present: mood/affect appropriate - Lab 11/13/17 04:35 11/13/17 04:35 Most recent lab results ABG pH 7.23 pH Units (7.32-7.45) L 11/11/17 18:24 ABG pCO2 39 mmHg (35-45) 11/11/17 18:24 ABG pO2 53 mmHg (85-104) L 11/11/17 18:24 ABG HCO3 16 mEq/L (21-27) L 11/11/17 18:24 ABG O2 Saturation 80 % (95-98) L 11/11/17 18:24 Calcium 8.4 mg/dL (8.6-10.3) L 11/13/17 04:35 Phosphorus 3.6 mg/dL (2.7-4.5) 11/10/17 05:25 Magnesium 2.2 mg/dL (1.6-2.6) 11/11/17 18:27 - VTE Documentation of Mechanical Device: Graduated compression elastic hosiery Consult Discharge Plan - Plan Referrals: Jeromy Wall MD [Primary Care Provider] -
--- NOTE | 2017-11-13 12:48 | Cardiology Progress Note ---
Date of Encounter: 11/13/17 Time of Encounter: 12:00 Assessment and Plan (1) Acute exacerbation of chronic obstructive airways disease Current Visit: No Status: Acute Per cardiology: -Admitted with COPD exacerbation. -Rhino virus positive . -Management per primary service. (2) Atrial flutter Current Visit: No Status: Chronic Per cardiology: -KNown a.flutter, RVR on admission. -Currently on coreg 25mg BID and cardizem CD 240mg daily and amio 200 daily. -On coumadin for anticoagulation, of note was subtherapeutic on admission. -Average HR previous 12 hours noted to be 101, atrial flutter. -Of note was hypotensive yesteday and medications were held. -Patient reports previous cardioversion 1 month ago at [place], states was back in a.flutter shortly after. -Will stop coreg. Will start toprol daily to attempt better rate control. -Will continue to monitor. Qualifiers: Qualified Code(s): I48.3 - Typical atrial flutter (3) Cardiomyopathy Current Visit: No Status: Chronic Per cardiology: -Known cardiomyopathy with RUBENS 03/2017 with LVEF 45%. -ON beta blcoker. Had been on joelle inhibitor outpatient. Now held due to hypotension. -Euvolemic on exam. -Chest x-ray with no overt CHF noted. -Patient is at his baseline weight. -Currently net negative 150ml. -Strict i/os, daily weights. Qualifiers: Qualified Code(s): I42.9 - Cardiomyopathy, unspecified (4) Elevated troponin Current Visit: No Status: Chronic Per cardiology: -Troponin 0.07, 0.05 in the setting of CKD, COPD -Has chronically elevated troponins. -Denies chest pain. -ECG with ST segment depression in lateral leads (unchanged from previous ECG when in a.flutter RVR). -KNown history of CAD with [facility] 2014 with * Left Main Coronary Artery The LMCA is angiographically free of disease. * Left Anterior Descending There is a 70% stenosis in the Proximal LAD. The lesion has severely calcification noted. There is a 100% stenosis in the Mid LAD. The lesion has collaterals which feed from left to right and right to left * Circumflex There is a 100% stenosis in the Proximal Circumflex. Distribution supplied by collaterals from FLORES mid LAD and RCA. * Right Coronary Artery There is a 100% stenosis in the Proximal RCA. The lesion has mature collaterals which feed from right to right and right to left feeding the Circumflex. Additional Findings: Grafts * The left internal mammary graft to the Mid LAD is patent. Provides collateralls to OM1 * The saphenous vein graft to the Right PDA is occluded. * The saphenous vein graft to the 1st Marginal is occluded. -On asa, statin, beta corina. -DO not suspect NSTEMI. suspect demand ischemia related to above. No cardaic rehab warranted. (5) CKD (chronic kidney disease) Current Visit: No Status: Chronic Per cardiology: -Known CKD, on HD. -Management per primary and nephrology services. Qualifiers: Qualified Code(s): N18.9 - Chronic kidney disease, unspecified (6) Lung cancer Current Visit: No Status: Chronic Per cardiology: -KNown lung CA. -Management per primary service. Qualifiers: Qualified Code(s): C34.01 - Malignant neoplasm of right main bronchus (7) Severe mitral regurgitation Current Visit: No Status: Chronic Per cardiology: -Known severe MR per RUBENS 03/2017 -Of note, reports at [place] one month ago. Denies any work up for valve at [place]. -Patient has been referred to [place] outpatient for evaluation. Discussion w patient/family: The assessment and plan as outlined above was discussed with the patient who expressed understanding and agreement. All questions were answered. Thank you for involving us in the care of your patient. Please call with any questions. Discussed and reviewed with Subjective Principal diagnosis: ESRD Interval history: Patient states he feels ok today. Denies chest pain, states breathing is ok today. Denies palpitations or fluttering. Objective Vital Signs, Last 4 Hours Temp Pulse Resp BP Pulse Ox 11/13/17 12:30 112 24 95/69 96 11/13/17 11:38 98.5 F 11/13/17 11:30 123 24 100/71 95 11/13/17 10:32 20 96 11/13/17 10:30 108 25 97/61 98 11/13/17 09:30 93 24 110/72 97 General: Conversant, No Apparent Distress HEENT: Atraumatic, Normocephaly, Mucus Membranes Moist Neck: No JVD, Normal carotid pulses Cardiac: Normal S1 and S2, Other (Irregular, Systolic murmur. ) Lungs: Other (Lung sounds coarse throughout. ) Neuro: Alert and responsive, No focal deficits noted Abdomen: Soft, Non-Tender Skin: No rashes noted on visualized skin Musculoskeletal: No Chest Wall Tenderness Extremities: No Clubbing, No Cyanosis, No Edema, Normal Pulses Results 11/13/17 04:35 11/13/17 04:35 Lab Results Active Medications Acetylcysteine (Acetylcysteine 20%) 600 mg PO BID [facility] Stop: 05/12/18 09:01 Last Admin: 11/13/17 08:01 Dose: 600 mg Albuterol Sulfate (Proventil Neb) 2.5 mg IH Q4HR PRN; Protocol PRN Reason: Wheezing Stop: 05/12/18 01:42 Amiodarone HCl (Cordarone) 200 mg PO DAILY [facility] Stop: 05/12/18 15:31 Last Admin: 11/13/17 08:00 Dose: 200 mg Aspirin (Aspirin Ec) 81 mg PO DAILY [facility] Stop: 05/13/18 09:01 Last Admin: 11/13/17 07:59 Dose: 81 mg Atorvastatin Calcium (Lipitor) 40 mg PO HS [facility] Stop: 05/12/18 21:01 Last Admin: 11/12/17 21:15 Dose: 40 mg Budesonide/Formoterol Fumarate (Symbicort) 2 puff IH BIDR [facility] PRN Reason: Protocol Stop: 05/12/18 10:01 Last Admin: 11/13/17 10:31 Dose: 2 puff Calcium Acetate (Phos-Lo) 667 mg PO TIDWM [facility] Stop: 05/12/18 08:01 Last Admin: 11/13/17 12:09 Dose: 667 mg Dextrose/Water (Dextrose 50% (Syg)) 25 ml IVP AD PRN PRN Reason: Hypoglycemia Stop: 05/13/18 11:15 Diltiazem HCl (Cardizem Cd) 240 mg PO DAILY [facility] Stop: 05/12/18 01:45 Last Admin: 11/13/17 07:59 Dose: 240 mg Docusate Sodium (Colace) 100 mg PO DAILY [facility]IDA PRN Reason: Protocol Stop: 05/12/18 09:01 Last Admin: 11/13/17 08:00 Dose: 100 mg Famotidine (Pepcid) 10 mg PO HS LIDA PRN Reason: Protocol Stop: 05/14/18 21:01 Last Admin: 11/12/17 21:14 Dose: 10 mg Fluticasone Propionate (Flonase) 50 mcg NS DAILY LIDA PRN Reason: Protocol Stop: 05/13/18 16:31 Last Admin: 11/12/17 08:07 Dose: 50 mcg Gabapentin (Neurontin) 100 mg PO BID [facility] Stop: 05/14/18 21:01 Last Admin: 11/13/17 08:00 Dose: 100 mg Glucagon (Glucagen) 1 mg IM ONCE PRN PRN Reason: Hypoglycemia Stop: 05/13/18 11:15 Glucose (Gluctose) 15 gm PO ONCE PRN PRN Reason: Hypoglycemia Stop: 05/13/18 11:15 Glucose (Gluctose) 30 gm PO ONCE PRN PRN Reason: Hypoglycemia Stop: 05/13/18 11:15 Guaifenesin (Mucinex) 600 mg PO BID [facility] Stop: 05/12/18 09:01 Last Admin: 11/13/17 07:59 Dose: 600 mg Dextrose (Dextrose 5%) 1,000 mls @ 100 mls/hr IVC .Q10H PRN PRN Reason: HYPOGLYCEMIA Stop: 05/13/18 11:15 Azithromycin 500 mg/ Dextrose 250 mls @ 252 mls/hr IVPB Q24H [facility] Stop: 05/13/18 14:01 Last Admin: 11/12/17 15:16 Dose: 252 mls/hr Sodium Chloride (0.9 % Sodium Chloride) 250 mls @ 937.5 mls/hr IVC .Q16M PRN PRN Reason: Hypotension Stop: 05/14/18 09:00 Albumin Human (Flexbumin) 12.5 gm in 50 mls @ 60 mls/hr IVPB ONCE PRN PRN Reason: Hypotension Stop: 05/14/18 09:00 Sodium Chloride (0.9 % Sodium Chloride) 1,000 mls @ 0 mls/hr PRIME .Q0M LIDA PRN Reason: As Directed Stop: 05/14/18 09:01 Cefepime HCl 500 mg/ Dextrose 100 mls @ 200 mls/hr IVPB Q24H [facility] Stop: 05/14/18 16:01 Last Admin: 11/12/17 16:27 Dose: 200 mls/hr Insulin Human Lispro (Humalog) 0 units SQ TIDAC [facility] PRN Reason: Protocol Stop: 05/13/18 11:31 Last Admin: 11/13/17 12:05 Dose: 8 units Insulin Human Lispro (Humalog) 0 units SQ HS [facility] PRN Reason: Protocol Stop: 05/13/18 21:01 Last Admin: 11/12/17 21:16 Dose: 4 units Levalbuterol HCl (Xopenex) 1.25 mg IH [id number] [facility] Stop: 05/12/18 04:01 Last Admin: 11/13/17 10:31 Dose: 1.25 mg Megestrol Acetate (Megace) 800 mg PO DAILY [facility] PRN Reason: Protocol Stop: 05/12/18 09:01 Last Admin: 11/13/17 08:00 Dose: 800 mg Methylprednisolone (Solu-Medrol) 40 mg IVP Q8H [facility] Stop: 05/12/18 04:01 Last Admin: 11/13/17 12:08 Dose: 40 mg Metoprolol Succinate (Toprol Xl) 25 mg PO DAILY [facility] Stop: 05/16/18 09:01 Naloxone HCl (Narcan) 0.4 mg IVP Q2MIN PRN PRN Reason: Opioid Reversal Stop: 05/12/18 00:47 Ondansetron HCl (Zofran) 4 mg IVP Q6HR PRN PRN Reason: Nausea And Vomiting Stop: 05/12/18 00:47 Oxycodone HCl (Roxicodone) 15 mg PO Q8HR PRN PRN Reason: Pain Stop: 05/12/18 01:42 Last Admin: 11/13/17 10:42 Dose: 15 mg Vancomycin HCl (Vancocin) 0 each IVPB RPHPROT PRN PRN Reason: PULSE DOSING Stop: 05/13/18 23:22 Vitamin B Complex/Vit C/Folic Acid (Renal Caps Softgel) 1 mg PO DAILY [facility] Stop: 05/15/18 09:01 Last Admin: 11/13/17 07:59 Dose: 1 mg Warfarin Sodium (Coumadin Perpt) 1 each PO DAILY@1800 PRN PRN Reason: SEE COMMENTS Stop: 05/12/18 08:01 Warfarin Sodium (Coumadin) 3 mg PO 1800 ONE Stop: 11/13/17 18:01 Laboratory Tests 11/13/17 11/13/17 04:35 04:35 Hgb 9.6 L Potassium 4.9 D Creatinine 5.23 H - Imaging and Cardiology Chest Xray: report reviewed Echo: report reviewed - EKG Interpretation EKG results cardiology: other (Telemetry reviewed with average HR previous 12 hours noted to be 101, atrial flutter. PVCs noted.) - VTE Documentation of Mechanical Device: Graduated compression elastic hosiery Consult Discharge Plan - Plan Referrals: Jeromy Wall MD [Primary Care Provider] -
[2017-11-13] MEDS ORDERED: 0.9 % Sodium Chloride 250 ML IVC PRN (13:08)
[2017-11-13] MEDS ORDERED: Albumin 25% 25gram/100mL 25 GM/100 ML IV.SOLN IVPB ONE (13:13)
[2017-11-13] MEDS: Azithromycin 500 MG in D5% in Water 250 ML IVPB SCH (15:16)
[2017-11-13] MEDS ORDERED: *HR* Atropine Sulfate 1 MG/10 ML SYRINGE ONE (17:01)
[2017-11-13] MEDS: Norepinephrine 4 MG in D5% in Water 250 ML IVC SCH ×2 (17:10→23:47)
[2017-11-13] MEDS ORDERED: *HR* FentaNYL (PF) 100 MCG/2 ML VIAL ONE (17:23)
[2017-11-13 17:37] LABS: ABG Base Excess -11 mEq/L (-2 to 3); ABG HCO3 19 mEq/L (21-27); ABG Oxygen Saturation 89 % (95-98); ABG PCO2 60 mmHg (35-45); ABG PO2 78 mmHg (85-104); ABG TCO2 21 mEq/L (20-26)
[2017-11-13] MEDS ORDERED: *HR* Midazolam HCl 2 MG/2 ML VIAL IV ONE (17:59)
[2017-11-13] MEDS ORDERED: Famotidine 20 MG/2 ML VIAL IVP SCH (18:00)
[2017-11-13] MEDS ORDERED: *HR* FentaNYL (PF) 100 MCG/2 ML VIAL IVP ONE ×2 (18:00→19:25)
[2017-11-13] MEDS ORDERED: Lacri-Lube 3.5 GM TUBE BOTH EYES PRN (18:00)
[2017-11-13] MEDS ORDERED: *HR* Warfarin 3 MG TABLET PO ONE (18:00)
[2017-11-13] MEDS: FentaNYL (PF) 1,000 MCG in 0.9 % Sodium Chloride 80 ML IVC SCH (18:41)
--- NOTE | 2017-11-13 18:52 | Procedure Note ---
<Anshu Sky - Last Filed: 11/13/17 19:10> Date of procedure: 11/13/17 Pre-op diagnosis: hypotension Post-op diagnosis: same Procedure: Central Venous Catheter Placement Date: 11/13/17 Time: Indication: Hemodynamic monitoring/Intravenous access Resident: Anshu Sky Attending: Dr. Hamilton A time-out was completed verifying correct patient, procedure, site, positioning , and special equipment if applicable. The patient was placed in a dependent position appropriate for central line placement based on the vein to be cannulated. The patients left neck was prepped and draped in sterile fashion. 1 % Lidocaine was used to anesthetize the surrounding skin area. A triple lumen 16 english Cordis catheter was introduced into the the internal jugular using the Seldinger technique and under ultrasound guidance. The catheter was threaded smoothly over the guide wire and appropriate blood return was obtained. Each lumen of the catheter was evacuated of air and flushed with sterile saline. The catheter was then sutured in place to the skin and a sterile dressing applied. Perfusion to the extremity distal to the point of catheter insertion was checked and found to be adequate. Dr. Rivers and Dr. Hamilton was present for the entire procedure. Estimated Blood Loss: 4cc The patient tolerated the procedure well and there were no complications. Anesthesia: IV sedation Was there an litigation legal assistant present: Yes Special Technical Operations Officer: Milind Rivers Estimated blood loss (cc): 4 Specimen: n Pathology: none sent Condition: stable Disposition: ICU <Dennis Hamilton - Last Filed: 11/13/17 19:35> Procedure: I examined this patient and my medical decision-making was reviewed with the Resident Physician. I agree with the documentation above. I was present in the room during the procedure. I personally reviewed the chest x-ray which shows the central line terminating at the cavoatrial junction.
--- NOTE | 2017-11-13 19:04 | Event Note ---
Date of Encounter: 11/13/17 Time of Encounter: 17:30 Endotracheal intubation procedure note Date: 11/13/2017 Time: 5:30 PM Indication: Acute hypoxic and epicardiac respiratory failure, unresponsive Attending: Dennis Hamilton MD A time-out was completed verifying correct patient, procedure, site, positioning , and special equipment. The patient was placed in a supine position. Sedation was obtained using <Versed 2mg>, and additionally with fentanyl 50 g. The patient was easily ventilated using an ambu bag. The <[employer]/ MAC 3 BLADE> was used and inserted into the oropharynx at which time there was a Grade 1 view of the vocal cords. A 7.5-cypriot endotracheal tube was inserted and visualized going through the vocal cords. The stylette was removed. Colorimetric change was visualized on the CO2 meter. Breath sounds were heard in both lung hirsch equally. The endotracheal tube was placed at 24 cm, measured at the teeth. A chest x-ray was ordered to assess for pneumothorax and verify endotracheal tube placement. Estimated Blood Loss: 0ml The patient tolerated the procedure well and there were no complications.
[2017-11-13] MEDS ORDERED: *HR* Atropine Sulfate 1 MG/10 ML SYRINGE IVP ONE (19:23)
[2017-11-13] MEDS ORDERED: 0.9 % Sodium Chloride 500 ML ONE (19:44)
--- NOTE | 2017-11-13 20:09 | Procedure Note ---
<Milind Ladd - Last Filed: 11/13/17 20:07> Date of procedure: 11/13/17 Pre-op diagnosis: Hypotension Post-op diagnosis: same Procedure: Arterial line An arrow arterial line kit was utilized for left radial artery arterial line. The patient was positioned in normal fashion. He was cleaned using ChloraPrep with an kit. He was draped in normal fashion. Utilizing ultrasound guidance the pre-packaged arterial line kit was utilized to place a left radial artery line. Immediate blood return was found. A good waveform noted on monitor. Sutured in place utilizing suture from within kit. Patient tolerated procedure well. Sterile dressing placed. Anesthesia: none Was there an assistant manager of operations present: Yes Paralegals: Jeff Rios Estimated blood loss (cc): 5 Specimen: None Pathology: none sent Condition: critical Disposition: ICU <Jeff Riso - Last Filed: 11/14/17 06:11> Procedure: I was present and supervised Dr. Ladd during his placement of an arterial line as it was needed for close hemodynamic monitoring.
[2017-11-13] MEDS: Lacri-Lube 3.5 GM TUBE BOTH EYES SCH ×2 (20:18→23:48)
[2017-11-13] MEDS: Chlorhexidine Rinse 15 ML MOUTHWASH MM SCH (20:19)
[2017-11-13] MEDS ORDERED: Famotidine 20 MG TABLET PO SCH (21:00)
[2017-11-13 21:01] LABS: ABG Base Excess -3 mEq/L (-2 to 3); ABG HCO3 23 mEq/L (21-27); ABG Oxygen Saturation 100 % (95-98); ABG PCO2 41 mmHg (35-45); ABG PH 7.35 pH Units (7.32-7.45); ABG PO2 430 mmHg (85-104); ABG TCO2 24 mEq/L (20-26); Blood Gas Modality PRVC; Blood Gas PEEP 5 cm H2O; Blood Gas Respiration Rate 14; Blood Gas VT 550 cc
[2017-11-14] MEDS ORDERED: Meropenem 500 MG in Water for inj. (sterile) 20 ML 10 ML IVP SCH
[2017-11-14] MEDS ORDERED: Meropenem 1,000 MG in Water for inj. (sterile) 10 ML IVP SCH
[2017-11-14] MEDS: Levalbuterol Neb 1.25 MG/3 ML IH SCH ×4 (03:26→21:35)
[2017-11-14] MEDS: MethylPREDNISolone 40 MG/ML VIAL IVP SCH ×2 (03:28→17:51)
[2017-11-14] MEDS: Lacri-Lube 3.5 GM TUBE BOTH EYES SCH ×2 (03:29→09:32)
[2017-11-14 03:47] LABS: Hematocrit 32.6 % (37.5-50.1); Hemoglobin 9.9 g/dL (12.9-16.9); Immature Granulocytes % 0.5 % (0-4); Lymphocytes # 0.3 K/mcL (0.6-4.6); Lymphocytes % 2.3 %; Mean Corpuscular HGB Conc 30.4 g/dL (31.6-35.5); Mean Corpuscular Hemoglobin 29.3 pg (28.0-33.3); Mean Corpuscular Volume 96.4 fL (83.0-100.0); Monocytes # 0.5 K/mcL (0.0-1.3); Monocytes % 3.8 %; Platelet Count 176 K/mcL (140-400); Red Blood Count 3.38 M/mcL (4.19-5.50); Red Cell Distribution Width 18.6 % (11.5-14.5); Segmented Neutrophils % 93.4 %
[2017-11-14 03:49] LABS: Neutrophils # 12.1 K/mcL (1.6-8.9)
[2017-11-14 04:00] LABS: Calcium 8.2 mg/dL (8.6-10.3); Potassium 4.6 mEq/L (3.5-5.1); Prothrombin Time 21.9 Seconds (9.4-12.1)
[2017-11-14 04:24] LABS: % Iron Saturation 15 % (20-55); Albumin 3.1 g/dL (3.5-5.7); Ferritin > 1350 ng/ml (20-250); Iron 27 mcg/dL (65-175); Phosphorous 9.7 mg/dL (2.7-4.5); Transferrin 127 mg/dL (203-362)
[2017-11-14 04:50] LABS: ABG Base Excess -1 mEq/L (-2 to 3); ABG HCO3 24 mEq/L (21-27); ABG Oxygen Saturation 99 % (95-98); ABG PCO2 38 mmHg (35-45); ABG PO2 118 mmHg (85-104); ABG TCO2 25 mEq/L (20-26); Blood Gas Modality PRVC; Blood Gas PEEP 5 cm H2O; Blood Gas Respiration Rate 14; Blood Gas VT 550 cc
[2017-11-14] MEDS: Famotidine 20 MG/2 ML VIAL IVP SCH ×2 (05:25→17:51)
[2017-11-14] MEDS: Insulin LISPRO 300 UNITS/3 ML VIAL SQ SCH ×4 (06:09→23:50)
--- NOTE | 2017-11-14 06:53 | Pulmonology Consult Note ---
Addendum entered and electronically signed by Anshu Sky DO 11/14/17 10:32: Extubated this morning around 10:30 and is tolerating high flow 4L De-escalated his antibiotic regimen; d/c azithromycin and switched meropenem to Zosyn De-escalated steroids to q12hrs Plan for HD today Original Note: <Anshu Sky - Last Filed: 11/14/17 09:56> Date of Encounter: 11/14/17 Time of Encounter: 06:53 Assessment and Plan (1) Acute and chronic respiratory failure with hypoxia Current Visit: Yes Status: Acute Patient was unresponsive, hypotensive and bradycardic as well as hypoxic after hemodialysis. He had agonal breathing. ABG showed pH 7.10, pCO2 60, pO2 78 and HCO3 19 Did not tolerate BiPAP and was sating in 80s. Emergent intubation was performed for airway protection Patient will was placed on mechanical ventilation with assist control, tidal volume of 550, respiratory rate of 14, FiO2 to start at 40% and titrate down as tolerated to maintain saturation above 92%. PEEP of 5. Chest x-ray confirmed adequate placement for CVC and ET tube. Repeat ABG showed pH 7.40, pCO2 38, pO2 118 and HCO3 24. Sedated on Fentanyl and Profofal. Will attempt to extubate today Patient is high risk and will continue to monitor closely throughout the day. (2) Metabolic encephalopathy Current Visit: Yes Status: Acute See above (3) Hypotension Current Visit: Yes Status: Acute Improving and stable on Levophed at this time (down to 4 per hour) Unclear etiology at this time. Possible vagal response from HD as this has happened in the past vs worsening underlying CAD vs CHF exacerbation Plan: Discontinue Levo and adding Midodrine Will continue to monitor closely Qualifiers: Hypotension type: unspecified hypotension type Qualified Code(s): I95.9 - Hypotension, unspecified (4) Systolic CHF Current Visit: Yes Status: Acute ECHO from August 2017 showed ejection fraction of 45%, moderate to severe eccentric mitral regurgitation and moderate pulmonary hypertension. CXR post-intubation demonstrated cardiomegaly with mild worsening vascular congestion consistent with CHF With the setting of hypotension, bradycardia and CAD s/p CABG 2008 and LHC 2014 , there is a concern for new cardiac etiology Will recheck trop and BNP Holding fluids Plan for HD tomorrow Qualifiers: Congestive heart failure chronicity: chronic Qualified Code(s): I50.22 - Chronic systolic (congestive) heart failure (5) Cardiomyopathy Current Visit: No Status: Chronic Cardiology following - appreciate recommendations History of CAD s/p CABG 2008 [facility] 2014; see cardio note Most recent ECHO from August 2017 showed ejection fraction of 45%, moderate to severe eccentric mitral regurgitation and moderate pulmonary hypertension Continue optimal medical management at this time Qualifiers: Cardiomyopathy type: unspecified Qualified Code(s): I42.9 - Cardiomyopathy , unspecified (6) Acute exacerbation of chronic obstructive airways disease Current Visit: No Status: Acute ABG improving; see above. Continue present regimen with IV Abx, solu-medrol and bronchodilators (7) Community acquired pneumonia Current Visit: No Status: Acute CT showed left lower lung and lingula opacity Now intubated with ventilater support Currently on Vancomycin, Meropenem and Azithromcin for broad coverage Pending sputum cultures Continue Solu-Medrol 40q8 Xopenex q6hrs LIDA Qualifiers: Laterality: right Lung location: unspecified part of lung Qualified Code( s): J18.9 - Pneumonia, unspecified organism (8) HTN (hypertension) Current Visit: No Status: Chronic Qualifiers: Hypertension type: essential hypertension Qualified Code(s): I10 - Essential (primary) hypertension (9) Leukocytosis Current Visit: No Status: Acute WBC bump to 12.9 Likely reactive to recent AMS, bradycardia and hypotension Will continue to follow Qualifiers: Leukocytosis type: unspecified Qualified Code(s): D72.829 - Elevated white blood cell count, unspecified (10) ESRD (end stage renal disease) Current Visit: No Status: Chronic Follows with Dr. Wells as outpatient Discontinued hemodialysis yesterday d/t hypotension, bradycardia and AMS Discussed with Nephro today - plan for HD tomorrow (11) Atrial flutter Current Visit: No Status: Chronic Cardiology and primary team managing HR stable on Toprol 25 qd and Cardizem 240 qd Telemetry Qualifiers: Atrial flutter type: typical Qualified Code(s): I48.3 - Typical atrial flutter (12) Acute bronchitis due to Rhinovirus Current Visit: No Status: Acute Respiratory panel positive for Rhinovirus Continue droplet precautions (13) DVT prophylaxis Current Visit: No Status: Acute Coumadin therapy History of Present Illness Consult date: 11/13/17 Requesting physician: Dennis Hamilton History of present illness: Mr. Guardado is a 61 year old male with PMH of ESRD on HD, squamous cell lung carcinoma (s/p bronch debulking 12/15 and started RT and wk1 Taxol 12/15, held Carbo d/t CKD), COPD on LTOT, Afib on Coumadin, HTN and systolic CHF who was sent to the ER on 11/09/17 for dialysis (MWF) for shortness of breath and palpitations. In the ER pt was reported to be dyspneic and in Aflutter with heart rate in 150s. Pt noted to have diffuse wheezing, was given IV steroids and started on cardizem gtt. Albuterol was not given due to tachycardia. Pt reports of not taking his home medications prior to dialysis including Cardizem , Coreg, and Coumadin. He reports of improvement in his breathing after receiving IV steroids. His rate is better controlled and currently denies any chest pain. He reports of chronic back pain and requests his home medications. Denies any cough, fever, or chills. CT chest demonstrated mild patchy opacity within the left lower lobe and lingula. Patient was subsequently admitted to [facility] for acute respiratory failure secondary to COPD exacerbation and bronchitis due to Rhinovirus. Additionally, he was started on his home dosing of Coreg and Cardizem after HR less than 100 with discontinuation of cardizem gtts for his atrial flutter. He was started on systemic steroids, Xopenex, O2 supplementation and IV Cefepime, Azithromycin and Vancomycin. Home dosing of Coreg and Cardizem was started after HR less than 100 with discontinuation of cardizem gtt. Respiratory panel found Rhinovirus positive and was placed on droplet precautions. Nephrology was consulted for his ESRD on HD and continued HD MWF. Cardiology was brought on as well due his history of CAD, s/p CABG 2008 and LHC 2014 with a mildly elevated troponin 0.05. Most recent ECHO from August 2017 showed ejection fraction of 45%, moderate to severe eccentric mitral regurgitation and moderate pulmonary hypertension. Recommended changing Coreg to Toprol and continue amiodarone for rhythm control. On 11/13/17 patient was unresponsive, hypotensive and bradycardic as well as hypoxic after hemodialysis. He had agonal breathing. His ABG showed pH 7.10, pCO2 60, pO2 78 and HCO3 19 consistent with hypercarbic respiratory failure as well as combined metabolic and respiratory acidosis. Atropine was started with mild improvement and was transitioned to Levophed. Emergent intubation was performed for airway protection and CVC into the left IJV was placed. Patient will was placed on mechanical ventilation with assist control, tidal volume of 550, respiratory rate of 14, FiO2 to start at 100% and titrate down as tolerated to maintain saturation above 92%. PEEP of 5. Chest x-ray confirmed adequate placement for CVC and ET tube. Pulmonary and Critical Care team was consulted for further evaluation and intervention as there is a concern for possible cardiac/pulm/neuro involvement. Repeat ABG showed pH 7.40, pCO2 38, pO2 118 and HCO3 24. EMR review shows additional study for his carotids back in May 2017 showing right proximal ICA has a moderate, 40-59% stenosis and left mid ICA has a severe, 60-79% stenosis. He is hemodyanamically stable at this time on Levophed and sedated on Fentanyl and Profofal. We will continue to follow patient and offer further recommendations. Past Med Surg Social Fam HX - Past Medical History Medical history: arthritis, cancer, CHF, coronary artery disease, diabetes, dialysis, GERD, hyperlipidemia, hypertension, myocardial infarction, peripheral artery disease, renal disease, other Psychiatric history: anxiety, depression - Past Surgical History Surgical History: angioplasty/stent, carotid endarterectomy, coronary bypass ( CABG), orthopedic, other, other - Social History Smoking Status: Former smoker Smokeless Tobacco Status: No (does not smoke) Alcohol use: none Drug use: none - Family History Brother Adopted: No Family Member Ethnicity: Non- Living Status: Hx Family Cardiac Disorders: Yes Hx Family Respiratory Disorders: Yes (dad black lung) Hx Family Cancer: Yes (mother) Hx Family GI Disorders: No Hx Family Endocrine Disorder: Yes (sister) Hx Family Neuromuscular Disorders: No Hx Family Neurologic Disorders: No Hx Family HEENT Disorders: No Hx Family Autoimmune Disorders: No Sister Family Member Ethnicity: Non- Living Status: Still Living Hx Family Cardiac Disorders: Yes (HD) Hx Family Respiratory Disorders: Yes (COPD) Hx Family Endocrine Disorder: Yes (Thyroid disease) Mother Adopted: No Family Member Ethnicity: Non- Living Status: Hx Family Cardiac Disorders: No Hx Family Respiratory Disorders: No Hx Family Cancer: Yes (bone) Hx Family GI Disorders: No Hx Family Endocrine Disorder: No Hx Family Neuromuscular Disorders: No Hx Family Neurologic Disorders: No Hx Family HEENT Disorders: No Hx Family Autoimmune Disorders: No Father Adopted: No Family Member Ethnicity: Non- Living Status: Age at : 70 Hx Family Cardiac Disorders: No Hx Family Respiratory Disorders: Yes Hx Family Cancer: No Hx Family GI Disorders: No Hx Family Endocrine Disorder: No Hx Family Neuromuscular Disorders: No Hx Family Neurologic Disorders: No Hx Family HEENT Disorders: No Hx Family Autoimmune Disorders: No Medications and Allergies Famotidine [Pepcid] 10 mg PO BID #60 tablet 07/03/15 [Rx] Albuterol Sulfate [Albuterol Inhaler] 2 puff IH Q4HR 07/29/15 [History] Budesonide/Formoterol 160/4.5 [Symbicort] 2 puff IH BIDR 07/29/15 [History] Gabapentin [Neurontin] 100 mg PO TID 07/29/15 [History] Calcium Acetate [Phos-LO] 667 mg PO TIDWM #90 capsule 10/02/15 [Rx] Furosemide [Lasix] 40 mg PO DAILY 08/31/16 [History] Oxygen 2.5 l NS AD 08/31/16 [History] Albuterol Neb [Proventil Neb] 2.5 mg IH Q4HR PRN #30 vial.neb 09/03/16 [Rx] Multivitamin [Multivitamins] 1 cap PO DAILY 11/03/16 [History] Magic Mouthwash [Magic Mouthwash BLM] 10 ml PO QID PRN #240 ml 12/18/16 [Rx] Docusate [Colace] 100 mg PO DAILY #20 capsule 03/02/17 [Rx] Megestrol Acetate [Megace] 800 mg PO DAILY #400 mls 04/12/17 [Rx] Acetylcysteine 20% 600 mg PO BID #60 syringe 09/07/17 [Rx] Atorvastatin [Lipitor] 40 mg PO HS #30 tablet 09/07/17 [Rx] Levalbuterol Neb [Xopenex Neb] 1.25 mg IH Q6H PRN #60 vial.neb 09/07/17 [Rx] Lidocaine/Prilocaine CREAM [Emla] 1 gm TP DAILY PRN tube 11/10/17 [Rx] Ondansetron [Zofran ODT] 8 mg SL Q4HR PRN #60 tab.rapdis 09/07/17 [Rx] OxyCODONE Immed Rel [Roxicodone 15 MG] 15 mg PO Q8HR PRN #90 tablet 09/24/17 [Rx ] Carvedilol [Coreg] 25 mg PO BID 11/10/17 [History] Diltiazem CD (24hr) [Cardizem CD] 240 mg PO DAILY 11/10/17 [History] Guaifenesin [Mucinex] 600 mg PO BID 11/10/17 [History] Warfarin [Coumadin] 1 - 2 tab PO DAILY 11/12/17 [History] 3 Allergy/AdvReac Type Severity Reaction Status Date / Time pollen extracts Allergy Itching Verified 11/12/17 11:02 shellfish derived AdvReac Nausea Verified 11/12/17 11:02 IVP DYE Allergy Intermediate Vomiting Uncoded 11/12/17 11:02 ROS unobtainable: due to endotracheal tube All Systems: A 10-system review of systems was performed and is negative for pertinent findings except as documented above in the HPI. Physical Examination Vital Signs: Vital Signs, Last 4 Hours Temp Pulse Resp BP Pulse Ox 11/14/17 06:00 80 16 106/56 98 11/14/17 05:45 17 104/52 99 11/14/17 05:00 62 15 103/52 98 11/14/17 04:00 61 18 110/54 99 11/14/17 03:26 18 109/56 99 11/14/17 03:00 98.1 F 60 16 109/51 99 General appearance: no acute distress (intubated) Eyes: nonicteric ENT: oropharynx dry Neck: supple Effort: normal Inspection: normal Integumentary: normal Extremities: no cyanosis, no edema, no clubbing Musculoskeletal: no deformities unable to assess due to mental status Ventilator Settings Ventilator Settings: Ventilator Settings, Last 8 Hours Ventilator Mode VC+ Ventilator Mode VC+ Ventilator Mode VC+ Ventilator Mode VC+ Ventilator Mode VC+ Ventilator Mode VC+ Ventilator Mode VC+ Ventilator Mode VC+ Ventilator Mode VC+ Ventilator Mode VC+ Ventilator Mode VC+ Ventilator Mode VC+ Ventilator Mode VC+ Ventilator Tidal Volume 550 Setting Ventilator Tidal Volume 550 Setting Ventilator Tidal Volume 550 Setting Ventilator Tidal Volume 550 Setting Ventilator Tidal Volume 550 Setting Ventilator Tidal Volume 550 Setting Ventilator Tidal Volume 550 Setting Ventilator Tidal Volume 550 Setting Ventilator Tidal Volume 550 Setting Ventilator Tidal Volume 550 Setting Ventilator Tidal Volume 550 Setting Ventilator Tidal Volume 550 Setting Ventilator Tidal Volume 550 Setting Ventilator Respiratory Rate 14 Setting Ventilator Respiratory Rate 14 Setting Ventilator Respiratory Rate 14 Setting Ventilator Respiratory Rate 14 Setting Ventilator Respiratory Rate 14 Setting Ventilator Respiratory Rate 14 Setting Ventilator Respiratory Rate 14 Setting Ventilator Respiratory Rate 14 Setting Ventilator Respiratory Rate 14 Setting Ventilator Respiratory Rate 14 Setting Ventilator Respiratory Rate 14 Setting Ventilator Respiratory Rate 14 Setting Ventilator Respiratory Rate 14 Setting Actual Respiratory Rate 18 Actual Respiratory Rate 17 Actual Respiratory Rate 15 Actual Respiratory Rate 18 Actual Respiratory Rate 18 Actual Respiratory Rate 16 Actual Respiratory Rate 14 Actual Respiratory Rate 15 Actual Respiratory Rate 15 Actual Respiratory Rate 15 Actual Respiratory Rate 16 Actual Respiratory Rate 16 Positive End Expiratory 5 Pressure Positive End Expiratory 5 Pressure Positive End Expiratory 5 Pressure Positive End Expiratory 5 Pressure Positive End Expiratory 5 Pressure Positive End Expiratory 5 Pressure Positive End Expiratory 5 Pressure Positive End Expiratory 5 Pressure Positive End Expiratory 5 Pressure Positive End Expiratory 5 Pressure Positive End Expiratory 5 Pressure Positive End Expiratory 5 Pressure Positive End Expiratory 5 Pressure Peak Inspiratory Airway 24 Pressure Peak Inspiratory Airway 28 Pressure Peak Inspiratory Airway 32 Pressure Peak Inspiratory Airway 31 Pressure Peak Inspiratory Airway 30 Pressure Peak Inspiratory Airway 30 Pressure Peak Inspiratory Airway 41 Pressure Peak Inspiratory Airway 39 Pressure Peak Inspiratory Airway 40 Pressure Peak Inspiratory Airway 38 Pressure Peak Inspiratory Airway 39 Pressure Peak Inspiratory Airway 39 Pressure Results - Laboratory Findings CBC and BMP: 11/14/17 03:42 11/14/17 03:42 ABG ABG pH 7.40 pH Units (7.32-7.45) 11/14/17 04:40 ABG pCO2 38 mmHg (35-45) 11/14/17 04:40 ABG pO2 118 mmHg (85-104) H 11/14/17 04:40 ABG O2 Saturation 99 % (95-98) H 11/14/17 04:40 PT/INR, D-dimer PT 21.9 Seconds (9.4-12.1) H 11/14/17 03:42 Abnormal lab findings: Abnormal lab results WBC 12.9 K/mcL (4.3-11.1) H D 11/14/17 03:42 RBC 3.38 M/mcL (4.19-5.50) L 11/14/17 03:42 Hgb 9.9 g/dL (12.9-16.9) L 11/14/17 03:42 Hct 32.6 % (37.5-50.1) L 11/14/17 03:42 MCHC 30.4 g/dL (31.6-35.5) L 11/14/17 03:42 RDW 18.6 % (11.5-14.5) H 11/14/17 03:42 Neutrophils # 12.1 K/mcL (1.6-8.9) H 11/14/17 03:42 Lymphocytes # 0.3 K/mcL (0.6-4.6) L 11/14/17 03:42 PT 21.9 Seconds (9.4-12.1) H 11/14/17 03:42 ABG pO2 118 mmHg (85-104) H 11/14/17 04:40 ABG O2 Saturation 99 % (95-98) H 11/14/17 04:40 Sodium 135 mEq/L (136-145) L 11/14/17 03:42 Chloride 96 mEq/L (98-107) L 11/14/17 03:42 BUN 106 mg/dL (6-20) H 11/14/17 03:42 Creatinine 5.72 mg/dL (0.70-1.30) H 11/14/17 03:42 Est GFR ( Amer) 12 (> 60) L 11/14/17 03:42 Est GFR (Non-Af Amer) 10 (> 60) L 11/14/17 03:42 Glucose 116 mg/dL (70-105) H 11/14/17 03:42 POC Glucose 251 (58-89) H 11/13/17 23:16 Calculated Osmolality 314 (280-300) H 11/14/17 03:42 Calcium 8.2 mg/dL (8.6-10.3) L 11/14/17 03:42 Phosphorus 9.7 mg/dL (2.7-4.5) H 11/14/17 03:42 Iron 27 mcg/dL (65-175) L 11/14/17 03:42 % Saturation 15 % (20-55) L 11/14/17 03:42 Transferrin 127 mg/dL (203-362) L 11/14/17 03:42 Ferritin > 1350 ng/ml (20-250) H 11/14/17 03:42 Alkaline Phosphatase 138 Units/L (34-104) H 11/12/17 12:43 Troponin I 0.05 ng/mL (< 0.04) H* 11/11/17 18:27 Albumin 3.1 g/dL (3.5-5.7) L 11/14/17 03:42 Folate 26.0 ng/mL (3.0-16.0) H 11/14/17 03:42 Hep Bs Antigen Reactive (Nonreactive) H 11/10/17 09:35 Entero/Rhino (PCR) DETECTED (Not Detect) A 11/10/17 04:30 - Microbiology Findings Microbiology Findings: Microbiology, Last 48 Hours 11/13/17 20:30 Sputum Culture - Preliminary Sputum - Diagnostic Findings Chest x-ray: report reviewed - Clinical Findings Intake & Output: Intake & Output 11/13/17 11/13/17 11/14/17 15:59 23:59 07:59 Intake Total 360 / 360 865 / 865 99 / 99 Output Total 317 / 317 185 / 185 Balance 360 / 360 548 / 548 -86 / -86 Consult Discharge Plan - Plan Referrals: Jeromy Wall MD [Primary Care Provider] - <Yamileth Gautam - Last Filed: 11/14/17 11:35> Date of Encounter: 11/14/17 All Systems: A 10-system review of systems was performed and is negative for pertinent findings except as documented above in the HPI. Physical Examination Vital Signs: Vital Signs, Last 4 Hours Temp Pulse Resp BP Pulse Ox 11/14/17 11:05 21 97 11/14/17 11:04 97 11/14/17 10:20 129 25 91/57 99 11/14/17 10:00 129 25 91/57 99 11/14/17 09:59 26 99 11/14/17 09:00 125 20 97/54 98 11/14/17 08:00 99.0 F 93 20 103/57 99 11/14/17 07:39 20 99 Ventilator Settings Ventilator Settings: Ventilator Settings, Last 8 Hours Ventilator Mode VC+ Ventilator Mode CPAP Ventilator Mode VC+ Ventilator Mode VC+ Ventilator Mode VC+ Ventilator Mode VC+ Ventilator Mode VC+ Ventilator Mode VC+ Ventilator Mode VC+ Ventilator Mode VC+ Ventilator Mode VC+ Ventilator Tidal Volume 550 Setting Ventilator Tidal Volume 550 Setting Ventilator Tidal Volume 550 Setting Ventilator Tidal Volume 550 Setting Ventilator Tidal Volume 550 Setting Ventilator Tidal Volume 550 Setting Ventilator Tidal Volume 550 Setting Ventilator Tidal Volume 550 Setting Ventilator Tidal Volume 550 Setting Ventilator Tidal Volume 550 Setting Ventilator Respiratory Rate 14 Setting Ventilator Respiratory Rate 14 Setting Ventilator Respiratory Rate 14 Setting Ventilator Respiratory Rate 14 Setting Ventilator Respiratory Rate 14 Setting Ventilator Respiratory Rate 14 Setting Ventilator Respiratory Rate 14 Setting Ventilator Respiratory Rate 14 Setting Actual Respiratory Rate 25 Actual Respiratory Rate 23 Actual Respiratory Rate 20 Actual Respiratory Rate 20 Actual Respiratory Rate 19 Actual Respiratory Rate 22 Actual Respiratory Rate 18 Actual Respiratory Rate 17 Actual Respiratory Rate 15 Actual Respiratory Rate 18 Positive End Expiratory 5 Pressure Positive End Expiratory 5 Pressure Positive End Expiratory 5 Pressure Positive End Expiratory 5 Pressure Positive End Expiratory 5 Pressure Positive End Expiratory 5 Pressure Positive End Expiratory 5 Pressure Positive End Expiratory 5 Pressure Positive End Expiratory 5 Pressure Positive End Expiratory 5 Pressure Positive End Expiratory 5 Pressure Peak Inspiratory Airway 15 Pressure Peak Inspiratory Airway 15 Pressure Peak Inspiratory Airway 14 Pressure Peak Inspiratory Airway 22 Pressure Peak Inspiratory Airway 19 Pressure Peak Inspiratory Airway 19 Pressure Peak Inspiratory Airway 24 Pressure Peak Inspiratory Airway 28 Pressure Peak Inspiratory Airway 32 Pressure Peak Inspiratory Airway 31 Pressure Results - Laboratory Findings CBC and BMP: 11/14/17 03:42 11/14/17 03:42 ABG ABG pH 7.40 pH Units (7.32-7.45) 11/14/17 04:40 ABG pCO2 38 mmHg (35-45) 11/14/17 04:40 ABG pO2 118 mmHg (85-104) H 11/14/17 04:40 ABG O2 Saturation 99 % (95-98) H 11/14/17 04:40 PT/INR, D-dimer PT 21.9 Seconds (9.4-12.1) H 11/14/17 03:42 Abnormal lab findings: Abnormal lab results WBC 12.9 K/mcL (4.3-11.1) H D 11/14/17 03:42 RBC 3.38 M/mcL (4.19-5.50) L 11/14/17 03:42 Hgb 9.9 g/dL (12.9-16.9) L 11/14/17 03:42 Hct 32.6 % (37.5-50.1) L 11/14/17 03:42 MCHC 30.4 g/dL (31.6-35.5) L 11/14/17 03:42 RDW 18.6 % (11.5-14.5) H 11/14/17 03:42 Neutrophils # 12.1 K/mcL (1.6-8.9) H 11/14/17 03:42 Lymphocytes # 0.3 K/mcL (0.6-4.6) L 11/14/17 03:42 PT 21.9 Seconds (9.4-12.1) H 11/14/17 03:42 ABG pO2 118 mmHg (85-104) H 11/14/17 04:40 ABG O2 Saturation 99 % (95-98) H 11/14/17 04:40 Sodium 135 mEq/L (136-145) L 11/14/17 03:42 Chloride 96 mEq/L (98-107) L 11/14/17 03:42 BUN 106 mg/dL (6-20) H 11/14/17 03:42 Creatinine 5.72 mg/dL (0.70-1.30) H 11/14/17 03:42 Est GFR ( Amer) 12 (> 60) L 11/14/17 03:42 Est GFR (Non-Af Amer) 10 (> 60) L 11/14/17 03:42 Glucose 116 mg/dL (70-105) H 11/14/17 03:42 POC Glucose 251 (58-89) H 11/13/17 23:16 Calculated Osmolality 314 (280-300) H 11/14/17 03:42 Calcium 8.2 mg/dL (8.6-10.3) L 11/14/17 03:42 Phosphorus 9.7 mg/dL (2.7-4.5) H 11/14/17 03:42 Iron 27 mcg/dL (65-175) L 11/14/17 03:42 % Saturation 15 % (20-55) L 11/14/17 03:42 Transferrin 127 mg/dL (203-362) L 11/14/17 03:42 Ferritin > 1350 ng/ml (20-250) H 11/14/17 03:42 Alkaline Phosphatase 138 Units/L (34-104) H 11/12/17 12:43 Troponin I 0.05 ng/mL (< 0.04) H* 11/11/17 18:27 Albumin 3.1 g/dL (3.5-5.7) L 11/14/17 03:42 25-OH Vitamin D Total 28 ng/mL (30-80) L 11/14/17 03:42 Folate 26.0 ng/mL (3.0-16.0) H 11/14/17 03:42 Hep Bs Antigen Reactive (Nonreactive) H 11/10/17 09:35 Entero/Rhino (PCR) DETECTED (Not Detect) A 11/10/17 04:30 - Microbiology Findings Microbiology Findings: Microbiology, Last 48 Hours 11/13/17 20:30 Sputum Culture - Preliminary Sputum - Clinical Findings Intake & Output: Intake & Output 11/13/17 11/14/17 11/14/17 23:59 07:59 15:59 Intake Total 1115 / 1115 99 / 99 275 / 275 Output Total 317 / 317 185 / 185 0 / 0 Balance 798 / 798 -86 / -86 275 / 275 - Attending Attestation I examined this patient and my medical decision-making was reviewed with the Resident Physician. I agree with the documented findings, disposition and treatment plan as described except to the extent set forth below. Patient seen and examined. Labs, radiology, chart personally reviewed. Agree with resident's history and physical, assessment, plan with following comments: REGULAR SENIOR CARE PROVIDER: Patient follows commands, Pulmonary: Acceptable oxygenation and ventilation. I have made changes in the ventilator and was able to extubate patient successfully after the changes. Sedation was lowered. Cardiovascular: Patient was on Levophed and after lowering sedation he was successfully came off sedation. I suspect with his cardiac disease is the main culprit for his recurrent syncopal episode. Cardiology has seen the patient and discussed with the assisted living nursing director to follow up with cardiology. GI: Nutrition per dietary and GI prophylaxis per routine Heme: DVT prophylaxis per routine ID: Continue antibiotics and plan to de-escalation Renal; discussed with the assisted living nursing director and I still feel removing fluid and consider some albumin is needed is important. Endorcine: blood glucose is monitored Lines: all lines checked and no evidence of infections Skin: skin care to prevent pressure ulcers per nursing routine care I spent 40 min of Critical Care time with this patient. It involved decision making of high complexity to assess, manipulate, and support vital organ system failure and/or to prevent further life threatening deterioration of the patient' s condition. The time involved in the performance of separately reportable procedures was not counted toward critical care time.
[2017-11-14] MEDS: FentaNYL (PF) 1,000 MCG in 0.9 % Sodium Chloride 80 ML IVC SCH (09:28)
[2017-11-14] MEDS: *HR* Amiodarone 200 MG TABLET PO SCH (09:30)
[2017-11-14] MEDS: *HR* Acetylcysteine 20% 600 MG/3 ML ORAL SYRINGE PO SCH ×2 (09:30→20:07)
[2017-11-14] MEDS: Megestrol Acetate 400 MG/10 ML UDC PO SCH (09:30)
[2017-11-14] MEDS: Calcium Acetate 667 MG CAPSULE PO SCH ×3 (09:30→17:52)
[2017-11-14] MEDS: Gabapentin 100 MG CAPSULE PO SCH ×2 (09:30→20:09)
[2017-11-14] MEDS: Aspirin Enteric Coated 81 MG Tablet PO SCH (09:31)
[2017-11-14] MEDS: Chlorhexidine Rinse 15 ML MOUTHWASH MM SCH (09:31)
[2017-11-14] MEDS: Diltiazem CD (24hr) 240 MG CAPSULE PO SCH (09:31)
[2017-11-14] MEDS: Fluticasone Propionate Nasal 50 MCG/SPRAY BOTTLE NS SCH (09:32)
[2017-11-14] MEDS: Renal Vitamin 1 MG CAPSULE PO SCH (09:33)
[2017-11-14] MEDS: Metoprolol XL (24 HR) Succ 50 MG TAB.ER.24H PO SCH (09:33)
[2017-11-14] MEDS: Aspirin 81 MG TAB.CHEW PO SCH (09:35)
[2017-11-14] MEDS: Budesonide/Formoterol 160/4.5 MDI IH SCH ×2 (09:58→20:30)
[2017-11-14] MEDS ORDERED: 0.9 % Sodium Chloride 250 ML IVC PRN (10:48)
[2017-11-14] MEDS ORDERED: Albumin 25% 25gram/100mL 25 GM/100 ML IV.SOLN IVPB ONE ×2 (10:50→15:35)
--- NOTE | 2017-11-14 10:56 | Cardiology Progress Note ---
Date of Encounter: 11/14/17 Time of Encounter: 09:00 Assessment and Plan (1) Acute exacerbation of chronic obstructive airways disease Current Visit: No Status: Acute Per cardiology: -Admitted with COPD exacerbation. -Rhino virus positive -Currently intubated. -Management per primary and pulmonary service. (2) Atrial flutter Current Visit: No Status: Chronic Per cardiology: -KNown a.flutter, RVR on admission. -Currently on toprol 25mg daily and cardizem CD 240mg daily and amio 200 daily. -On coumadin for anticoagulation, of note was subtherapeutic on admission. -Average HR previous 12 hours noted to be 67, atrial flutter. At bedside with stimuli, HR 100-110s. -Of note, has been hypotensive and has only been receiving his AV edyta blockers intermittently. -Patient reports previous cardioversion 1 month ago at [place], states was back in a.flutter shortly after. -Will continue to monitor. -Suspect may be tachycardic with medications being held for hypotension. Of note , it appears patient required vasopressors last night and was also administered atropine. Qualifiers: Atrial flutter type: typical Qualified Code(s): I48.3 - Typical atrial flutter (3) Cardiomyopathy Current Visit: No Status: Chronic Per cardiology: -Known cardiomyopathy with RUBENS 03/2017 with LVEF 45%. -ON beta blcoker. Had been on joelle inhibitor outpatient. Now held due to hypotension. -Euvolemic on exam. -Chest x-ray with possible edema versus pneumonia. -Patient is at his baseline weight. -Currently net negative 500ml. ON hemodialysis. -Strict i/os, daily weights. Qualifiers: Cardiomyopathy type: unspecified Qualified Code(s): I42.9 - Cardiomyopathy , unspecified (4) Elevated troponin Current Visit: No Status: Chronic Per cardiology: -Troponin 0.07, 0.05 in the setting of CKD, COPD -Has chronically elevated troponins. -ECG with ST segment depression in lateral leads (unchanged from previous ECG when in a.flutter RVR). -KNown history of CAD with [facility] 2014 with * Left Main Coronary Artery The LMCA is angiographically free of disease. * Left Anterior Descending There is a 70% stenosis in the Proximal LAD. The lesion has severely calcification noted. There is a 100% stenosis in the Mid LAD. The lesion has collaterals which feed from left to right and right to left * Circumflex There is a 100% stenosis in the Proximal Circumflex. Distribution supplied by collaterals from FLORES mid LAD and RCA. * Right Coronary Artery There is a 100% stenosis in the Proximal RCA. The lesion has mature collaterals which feed from right to right and right to left feeding the Circumflex. Additional Findings: Grafts * The left internal mammary graft to the Mid LAD is patent. Provides collateralls to OM1 * The saphenous vein graft to the Right PDA is occluded. * The saphenous vein graft to the 1st Marginal is occluded. -On asa, statin, beta corina. -DO not suspect NSTEMI. suspect demand ischemia related to above. No cardaic rehab warranted. (5) CKD (chronic kidney disease) Current Visit: No Status: Chronic Per cardiology: -Known CKD, on HD. -Management per primary and nephrology services. Qualifiers: Chronic kidney disease stage: unspecified stage Qualified Code(s): N18.9 - Chronic kidney disease, unspecified (6) Lung cancer Current Visit: No Status: Chronic Per cardiology: -KNown lung CA. -Management per primary service. Qualifiers: Laterality: right Lung location: hilum of lung Qualified Code(s): C34.01 - Malignant neoplasm of right main bronchus (7) Severe mitral regurgitation Current Visit: No Status: Chronic Per cardiology: -Known severe MR per RUBENS 03/2017 -Of note, reports at [place] one month ago. Denies any work up for valve at [place]. -Patient has been referred to [place] outpatient for evaluation. Discussion w patient/family: The assessment and plan as outlined above was discussed with the patient who expressed understanding and agreement. All questions were answered. Thank you for involving us in the care of your patient. Please call with any questions. Discussed and reviewed with Subjective Principal diagnosis: ESRD, lung CA, severe MR, a.flutter RVR Interval history: Per review of notes, yesterday patient had epidsode of unresponsiveness and was intubated. Today, patient intubated and sedated. Respond to verbal stimuli. Objective Vital Signs, Last 4 Hours Temp Pulse Resp BP Pulse Ox 11/14/17 10:00 129 25 91/57 99 11/14/17 09:59 26 99 11/14/17 09:00 125 20 97/54 98 11/14/17 08:00 99.0 F 93 20 103/57 99 11/14/17 07:39 20 99 11/14/17 07:00 100 22 109/57 99 General: Other (Intubated and sedated. ) HEENT: Atraumatic, Normocephaly, Mucus Membranes Moist Neck: No JVD, Normal carotid pulses Cardiac: Other (Irregularly irregular. Systolic murmur noted. ) Lungs: Other (Lung sounds coarse throughout. ) Neuro: Other (Sedated. Opens eyes to verbal stimuli. ) Abdomen: Soft Skin: No rashes noted on visualized skin Musculoskeletal: No Chest Wall Tenderness Extremities: No Clubbing, No Cyanosis, No Edema, Normal Pulses Results 11/14/17 03:42 11/14/17 03:42 Lab Results Impressions Chest X-Ray 11/13/17 17:31 IMPRESSION: The endotracheal tube tip 3.6 cm above the gonzales. Chronic scarring in the right suprahilar region with interval improvement in aeration of the lungs. D/ / 11/13/2017 18:00:22 Ashutosh Grubbs MD / renetta Interpreting Provider: Ashutosh Grubbs MD Chest X-Ray 11/13/17 18:39 IMPRESSION: Interval placement of left jugular central venous catheter. No pneumothorax. Overall increased opacity throughout the lungs, increased since CT 11/11/2017, likely edema. Extensive pneumonia could have this appearance as well. D/ / Eboni Jeffers Cha, MD / Eboni Jeffers Cha, MD Interpreting Provider: Eboni Jeffers Cha, MD X-Ray 11/13/17 19:24 IMPRESSION: Enteric catheter in satisfactory position. D/ / Kalen Moody MD / Kalen Moody MD Interpreting Provider: Kalen Moody MD Active Medications Acetylcysteine (Acetylcysteine 20%) 600 mg PO BID LIDA Stop: 05/12/18 09:01 Last Admin: 11/14/17 09:30 Dose: 600 mg Albuterol Sulfate (Proventil Neb) 2.5 mg IH Q4HR PRN; Protocol PRN Reason: Wheezing Stop: 05/12/18 01:42 Amiodarone HCl (Cordarone) 200 mg PO DAILY LIDA Stop: 05/12/18 15:31 Last Admin: 11/14/17 09:30 Dose: 200 mg Artificial Tears (Lacri-Lube) 1 appl BOTH EYES Q4HR LIDA PRN Reason: Protocol Stop: 05/15/18 20:01 Last Admin: 11/14/17 09:32 Dose: 1 appl Artificial Tears (Lacri-Lube) 1 appl BOTH EYES Q2HR PRN; Protocol PRN Reason: Dry Eyes Stop: 05/15/18 18:01 Aspirin (Aspirin) 81 mg PO DAILY LIDA Stop: 05/13/18 09:01 Last Admin: 11/14/17 09:35 Dose: 81 mg Atorvastatin Calcium (Lipitor) 40 mg PO HS LIDA Stop: 05/12/18 21:01 Last Admin: 11/13/17 20:19 Dose: 40 mg Budesonide/Formoterol Fumarate (Symbicort) 2 puff IH BIDR LIDA PRN Reason: Protocol Stop: 05/12/18 10:01 Last Admin: 11/14/17 09:58 Dose: 2 puff Calcium Acetate (Phos-Lo) 667 mg PO TIDWM LIDA Stop: 05/12/18 08:01 Last Admin: 11/14/17 09:30 Dose: 667 mg Chlorhexidine Gluconate (Chlorhexidine Rinse) 15 ml MM BID LIDA Stop: 05/15/18 21:01 Last Admin: 11/14/17 09:31 Dose: 15 ml Dextrose/Water (Dextrose 50% (Syg)) 25 ml IVP AD PRN PRN Reason: Hypoglycemia Stop: 05/13/18 11:15 Diltiazem HCl (Cardizem Cd) 240 mg PO DAILY LIDA Stop: 05/12/18 01:45 Last Admin: 11/14/17 09:31 Dose: Not Given Docusate Sodium (Colace) 100 mg PO DAILY LIDA PRN Reason: Protocol Stop: 05/12/18 09:01 Last Admin: 11/14/17 09:32 Dose: Not Given Famotidine (Pepcid) 10 mg IVP Q12HR LIDA PRN Reason: Protocol Stop: 05/16/18 06:01 Last Admin: 11/14/17 05:25 Dose: Not Given Fluticasone Propionate (Flonase) 50 mcg NS DAILY LIDA PRN Reason: Protocol Stop: 05/13/18 16:31 Last Admin: 11/14/17 09:32 Dose: 50 mcg Gabapentin (Neurontin) 100 mg PO BID LIDA Stop: 05/14/18 21:01 Last Admin: 11/14/17 09:30 Dose: 100 mg Glucagon (Glucagen) 1 mg IM ONCE PRN PRN Reason: Hypoglycemia Stop: 05/13/18 11:15 Glucose (Gluctose) 15 gm PO ONCE PRN PRN Reason: Hypoglycemia Stop: 05/13/18 11:15 Glucose (Gluctose) 30 gm PO ONCE PRN PRN Reason: Hypoglycemia Stop: 05/13/18 11:15 Guaifenesin (Mucinex) 600 mg PO BID LIDA Stop: 05/12/18 09:01 Last Admin: 11/14/17 09:32 Dose: Not Given Dextrose (Dextrose 5%) 1,000 mls @ 100 mls/hr IVC .Q10H PRN PRN Reason: HYPOGLYCEMIA Stop: 05/13/18 11:15 Albumin Human (Flexbumin) 12.5 gm in 50 mls @ 60 mls/hr IVPB ONCE PRN PRN Reason: Hypotension Stop: 05/14/18 09:00 Sodium Chloride (0.9 % Sodium Chloride) 1,000 mls @ 0 mls/hr PRIME .Q0M LIDA PRN Reason: As Directed Stop: 05/14/18 09:01 Sodium Chloride (0.9 % Sodium Chloride) 250 mls @ 937.5 mls/hr IVC .Q16M PRN PRN Reason: Hypotension Stop: 05/15/18 13:09 Fentanyl Citrate 1,000 mcg/ (Sodium Chloride) 100 mls @ 5 mls/hr IVC CONT LIDA; 50 MCG/HR PRN Reason: Protocol Stop: 05/15/18 18:01 Last Titration: 11/14/17 10:00 Dose: 0 mcg/hr, 0 mls/hr Propofol (Diprivan) 1,000 mg in 100 mls @ 1.929 mls/hr IVC .Q24H LIDA; 5 MCG/KG/ MIN PRN Reason: Protocol Stop: 05/15/18 18:01 Last Titration: 11/14/17 08:30 Dose: 0 mcg/kg/min, 0 mls/hr Norepinephrine Bitartrate 4 mg (/ Dextrose) 254 mls @ 19.05 mls/hr IVC CONT ILDA ; 5 MCG/MIN PRN Reason: Protocol Stop: 05/15/18 18:46 Last Titration: 11/14/17 08:30 Dose: 0 mcg/min, 0 mls/hr Piperacillin Sod/Tazobactam (Sod 3.375 gm/ Dextrose) 100 mls @ 25 mls/hr IVPB Q12HR LIDA Stop: 05/16/18 18:01 Sodium Chloride (0.9 % Sodium Chloride) 250 mls @ 937.5 mls/hr IVC .Q16M PRN PRN Reason: Hypotension Stop: 05/16/18 10:49 Albumin Human (Flexbumin) 25 gm in 100 mls @ 60 mls/hr IVPB ONCE ONE Stop: 11/14/17 12:29 Insulin Human Lispro (Humalog) 0 units SQ Q6HR LIDA PRN Reason: Protocol Stop: 05/16/18 00:01 Last Admin: 11/14/17 06:09 Dose: 4 units Levalbuterol HCl (Xopenex) 1.25 mg IH [id number] [facility] Stop: 05/12/18 04:01 Last Admin: 11/14/17 09:58 Dose: 1.25 mg Megestrol Acetate (Megace) 800 mg PO DAILY LIDA PRN Reason: Protocol Stop: 05/12/18 09:01 Last Admin: 11/14/17 09:30 Dose: 800 mg Methylprednisolone (Solu-Medrol) 40 mg IVP Q12HR [facility] Stop: 05/16/18 18:01 Metoprolol Succinate (Toprol Xl) 25 mg PO DAILY [facility] Stop: 05/16/18 09:01 Last Admin: 11/14/17 09:33 Dose: Not Given Midodrine (Proamatine) 2.5 mg PO 0800,1200,1700 [facility] Stop: 05/16/18 12:01 Naloxone HCl (Narcan) 0.4 mg IVP Q2MIN PRN PRN Reason: Opioid Reversal Stop: 05/12/18 00:47 Ondansetron HCl (Zofran) 4 mg IVP Q6HR PRN PRN Reason: Nausea And Vomiting Stop: 05/12/18 00:47 Oxycodone HCl (Roxicodone) 15 mg PO Q8HR PRN PRN Reason: Pain Stop: 05/12/18 01:42 Last Admin: 11/13/17 10:42 Dose: 15 mg Vancomycin HCl (Vancocin) 0 each IVPB RPHPROT PRN PRN Reason: PULSE DOSING Stop: 05/13/18 23:22 Vitamin B Complex/Vit C/Folic Acid (Renal Caps Softgel) 1 mg PO DAILY LIDA Stop: 05/15/18 09:01 Last Admin: 11/14/17 09:33 Dose: Not Given Warfarin Sodium (Coumadin Perpt) 1 each PO DAILY@1800 PRN PRN Reason: SEE COMMENTS Stop: 05/12/18 08:01 Laboratory Tests 11/14/17 11/14/17 03:42 03:42 WBC 12.9 H D Hgb 9.9 L Potassium 4.6 Creatinine 5.72 H - Imaging and Cardiology Chest Xray: report reviewed Echo: report reviewed - EKG Interpretation EKG results cardiology: other (Telemetry reviewed with average HR previous 12 hours noted to be 67, atrial flutter. PVCs noted.) - VTE Documentation of Mechanical Device: Graduated compression elastic hosiery Consult Discharge Plan - Plan Referrals: Jeromy Wall MD [Primary Care Provider] -
[2017-11-14] MEDS: *HR* OxyCODONE Immed Rel 15 MG TABLET PO PRN ×2 (12:32→20:08)
[2017-11-14] MEDS ORDERED: 0.9 % Sodium Chloride 2,000 ML ONE (12:40)
--- NOTE | 2017-11-14 12:48 | Nephrology Progress Note ---
Date of Encounter: 11/14/17 Time of Encounter: 12:41 - Assessment and Plan (1) ESRD (end stage renal disease) on dialysis Current Visit: No Status: Acute HD MWF. Renal vitamins. Renal dose medications. Renal diet. Additional dialysis and ultrafiltration as needed. Will perform UF today secondary to volume overload state. Patient with afib/aflutter with RVR - cardiology following. Patient with COPD, Rhinovirus positive and pumonary edema. Patient intubated overnight and extubated this AM. Will perform UF to optimize respiratory status. Spoke with ICU team. Will give albumin prior to UF to help support his blood pressure. Also found to have vitamin D deficiency - will start 12 weeks of ergocalciferol. (2) Atrial flutter with rapid ventricular response Current Visit: Yes Status: Acute Cardiology following. Still tachycardic. (3) Anemia Current Visit: No Status: Acute Hemoglobin stable. Iron stores low. Vitamin b12 and folate levels within normal limits. No acute bleeding Qualifiers: Anemia type: due to chronic kidney disease Chronic kidney disease stage: on chronic dialysis Qualified Code(s): N18.6 - End stage renal disease; D63.1 - Anemia in chronic kidney disease; D63.1 - Anemia in chronic kidney disease; Z99.2 - Dependence on renal dialysis; Z99.2 - Dependence on renal dialysis; Z99.2 - Dependence on renal dialysis; Z99.2 - Dependence on renal dialysis (4) Hypertension Current Visit: Yes Status: Acute Titrate antihypertensive medication as needed. Blood pressure on the low side. Pressors discontinued this am. Qualifiers: Qualified Code(s): I10 - Essential (primary) hypertension (5) COPD exacerbation Current Visit: No Status: Acute Rhinovirus positive. Patient with some pulmonary edema. Per primary team. Subjective Principal diagnosis: ESRD, lung CA, severe MR, a.flutter RVR Interval history: Patient seen this AM. He is intubated, but awake. Can't answer full review of systems. Objective - Vital Signs Vital signs: Vital Signs Temp Pulse Resp BP Pulse Ox 11/14/17 11:05 21 97 11/14/17 11:04 97 11/14/17 10:20 129 25 91/57 99 11/14/17 10:00 129 25 91/57 99 11/14/17 09:59 26 99 11/14/17 09:00 125 20 97/54 98 11/14/17 08:00 99.0 F 93 20 103/57 99 11/14/17 07:39 20 99 11/14/17 07:00 100 22 109/57 99 11/14/17 06:00 80 16 106/56 98 11/14/17 05:45 17 104/52 99 11/14/17 05:00 62 15 103/52 98 11/14/17 04:00 61 18 110/54 99 11/14/17 03:26 18 109/56 99 11/14/17 03:00 98.1 F 60 16 109/51 99 11/14/17 02:00 60 14 107/53 99 11/14/17 01:27 15 113/54 100 11/14/17 01:00 60 15 114/55 100 11/14/17 00:00 58 15 110/57 100 11/13/17 23:25 16 112/58 100 11/13/17 23:00 96.9 F L 58 16 113/57 100 11/13/17 22:00 57 17 98/50 100 11/13/17 21:12 15 113/54 98 11/13/17 21:00 58 15 113/55 98 11/13/17 20:18 97.9 F 11/13/17 20:00 57 14 112/51 100 11/13/17 19:40 14 99/61 99 11/13/17 19:00 57 14 102/61 98 11/13/17 18:00 85 14 132/69 100 11/13/17 17:35 14 98 11/13/17 17:05 97.8 F 18 94/67 11/13/17 16:55 64/37 11/13/17 16:40 97.8 F 24 109/89 11/13/17 16:30 99 24 101/84 96 11/13/17 16:02 22 96 11/13/17 15:57 97.8 F 11/13/17 15:30 67 24 94/60 96 11/13/17 14:30 84 24 92/56 97 11/13/17 13:30 81 23 91/57 96 Intake and Output 11/13/17 11/14/17 11/14/17 23:59 07:59 15:59 Intake Total 1115 / 1115 99 / 99 275 / 275 Output Total 317 / 317 185 / 185 0 / 0 Balance 798 / 798 -86 / -86 275 / 275 Intake: IV Fluids 515 / 515 99 / 99 275 / 275 FentaNYL (PF) 1,000 MCG In 0.9 105 / 105 % Sodium Chloride 80 ML @ 50 MCG/HR 5 mls/hr IVC CONT LIDA Rx #:[id number] Levophed 4 MG In Dextrose 5% 254 / 254 135 / 135 250 ML @ 5 MCG/MIN 19.05 mls/hr IVC CONT LIDA Rx#:[id number] Diprivan 1,000 mg In 100 ml @ 5 1 / 99 / 99 35 / 35 MCG/KG/MIN 1.929 mls/hr IVC . Q24H LIDA Rx#:[id number] Merrem 500 MG In Water for inj. 10 / 10 (sterile) 10 ML @ 200 mls/hr IVP Q24H LIDA Rx#:[id number] Zithromax 500 mg In Dextrose 5% 250 / 250 250 ML @ 252 mls/hr IVPB Q24H LIDA Rx#:[id number] Oral 0 / 0 Intake, Rinseback and Flushes 600 / 600 Output: Urine 100 / 100 Total Dialysis (HD) Output 162 / 162 Catheter 5 / 5 35 / 35 0 / 0 Gastric Drainage 50 / 50 150 / 150 Other: Stool Size Smear Stool Consistency soft Stool Color Yellow Blood Glucose* 251 183 Hemodialysis Net Fluid Removed 0 (mL) - General Appearance General appearance: Present: well-developed, well-nourished, intubated EENT: Present: ATNC Respiratory: Present: course breath sounds, rhonchi Cardiology: Present: edema Additional Comments: tachycardic. Integumentary: Present: warm and dry Additional Comments: Alert, intubated. Communicates that he want the ET tube removed. Musculoskeletal: Present: no cyanosis - Lab 11/14/17 03:42 11/14/17 03:42 Most recent lab results ABG pH 7.40 pH Units (7.32-7.45) 11/14/17 04:40 ABG pCO2 38 mmHg (35-45) 11/14/17 04:40 ABG pO2 118 mmHg (85-104) H 11/14/17 04:40 ABG HCO3 24 mEq/L (21-27) 11/14/17 04:40 ABG O2 Saturation 99 % (95-98) H 11/14/17 04:40 Calcium 8.2 mg/dL (8.6-10.3) L 11/14/17 03:42 Phosphorus 9.7 mg/dL (2.7-4.5) H 11/14/17 03:42 Magnesium 2.2 mg/dL (1.6-2.6) 11/11/17 18:27 - VTE Documentation of Mechanical Device: Graduated compression elastic hosiery Consult Discharge Plan - Plan Referrals: Jeromy Wall MD [Primary Care Provider] -
[2017-11-14] MEDS ORDERED: Amiodarone Premix 150 MG/100 ML BAG IVPB ONE (14:37)
[2017-11-14] MEDS ORDERED: Amiodarone Premix 360 MG/200 ML BAG IVC ONE (14:37)
[2017-11-14] MEDS ORDERED: *HR* Warfarin 3 MG TABLET PO ONE (18:00)
[2017-11-14] MEDS ORDERED: Vancomycin 500 MG in D5% in Water (Mini-Bag+) 100 ML IVPB ONE (18:00)
[2017-11-14] MEDS ORDERED: Piperacillin/Tazobactam 3.375 GM in D5% in Water (Mini-Bag+) 100 ML IVPB SCH (18:00)
[2017-11-14] MEDS ORDERED: Vancomycin 500 MG in 0.9 % Sodium Chloride Mini Bag 100 ML IVPB ONE (18:15)
[2017-11-14] MEDS: Piperacillin/Tazobactam 3.375 GM/200 ML BAG IVPB SCH (18:32)
[2017-11-14] MEDS ORDERED: Ipratropium/Albuterol Neb 3 ML IH ONE (20:24)
[2017-11-14] MEDS: Amiodarone Premix 360 MG/200 ML BAG IVC SCH (23:44)
[2017-11-15] MEDS: Levalbuterol Neb 1.25 MG/3 ML IH SCH ×4 (03:09→22:32)
[2017-11-15 03:51] LABS: Basophils % 0.1 %; Hematocrit 29.8 % (37.5-50.1); Hemoglobin 9.1 g/dL (12.9-16.9); Immature Granulocytes % 0.8 % (0-4); Lymphocytes # 0.1 K/mcL (0.6-4.6); Lymphocytes % 0.8 %; Mean Corpuscular HGB Conc 30.5 g/dL (31.6-35.5); Mean Corpuscular Hemoglobin 29.3 pg (28.0-33.3); Mean Corpuscular Volume 95.8 fL (83.0-100.0); Mean Platelet Volume 10.5 fL (9.4-12.4); Monocytes # 0.5 K/mcL (0.0-1.3); Monocytes % 4.9 %; Neutrophils # 9.8 K/mcL (1.6-8.9); Nucleated Red Blood Cells 0.4 /100 WBC (0); Platelet Count 114 K/mcL (140-400); Red Blood Count 3.11 M/mcL (4.19-5.50); Red Cell Distribution Width 18.7 % (11.5-14.5); Segmented Neutrophils % 93.4 %
[2017-11-15 03:54] LABS: INR 2.4; Prothrombin Time 25.9 Seconds (9.4-12.1)
[2017-11-15 04:19] LABS: Anisocytosis 1+ (Not Present)
[2017-11-15 04:20] LABS: Macrocytosis Present (Not Present); Platelet Estimate Decreased (Normal); Poikilocytosis 1+ (Not Present); Target Cells 1+ (Not Present)
[2017-11-15 04:21] LABS: Calcium 8.8 mg/dL (8.6-10.3); Potassium 5.2 mEq/L (3.5-5.1)
[2017-11-15] MEDS: Famotidine 20 MG/2 ML VIAL IVP SCH ×2 (05:15→17:29)
[2017-11-15] MEDS: MethylPREDNISolone 40 MG/ML VIAL IVP SCH ×2 (05:16→17:29)
[2017-11-15] MEDS: Piperacillin/Tazobactam 3.375 GM/200 ML BAG IVPB SCH ×2 (05:17→17:32)
[2017-11-15] MEDS: Insulin LISPRO 300 UNITS/3 ML VIAL SQ SCH ×4 (05:21→23:18)
--- NOTE | 2017-11-15 07:04 | Pulmonology Progress Note ---
<Anshu Sky - Last Filed: 11/15/17 15:23> Date of Encounter: 11/15/17 Time of Encounter: 07:04 Assessment and Plan (1) Acute and chronic respiratory failure with hypoxia Current Visit: Yes Status: Acute Patient was extubated yesterday morning Repeat ABG showed pH 7.40, pCO2 38, pO2 118 and HCO3 24. Required BiPAP last night due to worsening dyspnea responded to bronchodilators HD today - 3 kg over 4 hours Patient is high risk and will continue to monitor closely throughout the day Will consult palliative care to evaluate skilled nursing goals with history of multiple intubations (2) Metabolic encephalopathy Current Visit: Yes Status: Resolved Resolving Patient is alert and oriented 3 (3) Hypotension Current Visit: Yes Status: Acute Patient is off pressor support at this time Blood pressure stable Tolerating Midodrine Will continue to monitor closely Qualifiers: Hypotension type: unspecified hypotension type Qualified Code(s): I95.9 - Hypotension, unspecified (4) Systolic CHF Current Visit: Yes Status: Acute ECHO from August 2017 showed ejection fraction of 45%, moderate to severe eccentric mitral regurgitation and moderate pulmonary hypertension. CXR post-intubation demonstrated cardiomegaly with mild worsening vascular congestion consistent with CHF History of CAD s/p CABG 2008 and [facility] 2014 Trop mildly elevated at 0.11, likely demand ischemia Holding fluids Patient underwent 2 kg removal with ultrafiltration yesterday, HD today with 3kg over 4 hours Qualifiers: Congestive heart failure chronicity: chronic Qualified Code(s): I50.22 - Chronic systolic (congestive) heart failure (5) Cardiomyopathy Current Visit: No Status: Chronic Cardiology following - appreciate recommendations History of CAD s/p CABG 2008 [facility] 2014; see cardio note Most recent ECHO from August 2017 showed ejection fraction of 45%, moderate to severe eccentric mitral regurgitation and moderate pulmonary hypertension Continue optimal medical management at this time with aspirin, statin, beta corina Qualifiers: Cardiomyopathy type: unspecified Qualified Code(s): I42.9 - Cardiomyopathy , unspecified (6) Acute exacerbation of chronic obstructive airways disease Current Visit: No Status: Acute Continue present regimen with IV Abx, solu-medrol and bronchodilators (7) Community acquired pneumonia Current Visit: No Status: Acute CT showed left lower lung and lingula opacity Currently on Vancomycin and Zosyn for broad coverage Sputum culture showing few gram-positive cocci Continue Solu-Medrol 40q12 Xopenex q6hrs [facility] Qualifiers: Laterality: right Lung location: unspecified part of lung Qualified Code( s): J18.9 - Pneumonia, unspecified organism (8) HTN (hypertension) Current Visit: No Status: Chronic Qualifiers: Hypertension type: essential hypertension Qualified Code(s): I10 - Essential (primary) hypertension (9) Leukocytosis Current Visit: No Status: Resolved Resolved Qualifiers: Leukocytosis type: unspecified Qualified Code(s): D72.829 - Elevated white blood cell count, unspecified (10) ESRD (end stage renal disease) Current Visit: No Status: Chronic Follows with Dr. Wells as outpatient Creatinine up from 5.72- > 7.22 Had 2 kg off yesterday with ultrafiltration Management per nephrology team HD today - 3kg over 4 hours (11) Atrial flutter Current Visit: No Status: Chronic Cardiology and primary team managing HR stable on Toprol 25 qd and Cardizem 240 qd Heart rate currently in the 120s Cardiology placed amiodarone drip yesterday Qualifiers: Atrial flutter type: typical Qualified Code(s): I48.3 - Typical atrial flutter (12) Acute bronchitis due to Rhinovirus Current Visit: No Status: Acute Respiratory Panel positive for rhinovirus Continued droplet precautions (13) DVT prophylaxis Current Visit: No Status: Acute Coumadin therapy Subjective Principal diagnosis: ESRD, lung CA, severe MR, a.flutter RVR Interval history: Patient is admitted for acute on chronic respiratory failure with hypoxia secondary to COPD exacerbation and pneumonia Extubated yesterday morning Patient is resting comfortably on high flow oxygen She reports required BiPAP last night and tolerated well She has no new concerns at this time Objective PUL Vital signs: Last Vital Signs Temp 98.0 F 11/15/17 04:49 Pulse 114 11/15/17 06:00 Resp 18 11/15/17 06:00 BP 114/78 11/15/17 06:00 Pulse Ox 97 11/15/17 06:00 General appearance: no acute distress Eyes: nonicteric ENT: oropharynx moist Neck: supple Effort: normal Auscultation: bilateral: wheezes, other (crackles) Cardiovascular: other (Atrial flutter) Gastrointestinal: normoactive bowel sounds, non-distended Integumentary: normal Extremities: no cyanosis, no edema, no clubbing Musculoskeletal: no deformities normal mental status, non-focal exam mood appropriate, affect normal Results - Laboratory Findings CBC and BMP: 11/15/17 03:40 11/15/17 03:40 ABG ABG pH 7.40 pH Units (7.32-7.45) 11/14/17 04:40 ABG pCO2 38 mmHg (35-45) 11/14/17 04:40 ABG pO2 118 mmHg (85-104) H 11/14/17 04:40 ABG O2 Saturation 99 % (95-98) H 11/14/17 04:40 PT/INR, D-dimer PT 25.9 Seconds (9.4-12.1) H 11/15/17 03:40 Abnormal lab findings: Abnormal lab results RBC 3.11 M/mcL (4.19-5.50) L 11/15/17 03:40 Hgb 9.1 g/dL (12.9-16.9) L 11/15/17 03:40 Hct 29.8 % (37.5-50.1) L 11/15/17 03:40 MCHC 30.5 g/dL (31.6-35.5) L 11/15/17 03:40 RDW 18.7 % (11.5-14.5) H 11/15/17 03:40 Plt Count 114 K/mcL (140-400) L 11/15/17 03:40 Neutrophils # 9.8 K/mcL (1.6-8.9) H 11/15/17 03:40 Lymphocytes # 0.1 K/mcL (0.6-4.6) L 11/15/17 03:40 Nucleated RBCs/100 WBC 0.4 /100 WBC (0) H 11/15/17 03:40 Platelet Estimate Decreased (Normal) L 11/15/17 03:40 Poikilocytosis 1+ (Not Present) A 11/15/17 03:40 Anisocytosis 1+ (Not Present) A 11/15/17 03:40 Macrocytosis Present (Not Present) A 11/15/17 03:40 Target Cells 1+ (Not Present) A 11/15/17 03:40 PT 25.9 Seconds (9.4-12.1) H 11/15/17 03:40 ABG pO2 118 mmHg (85-104) H 11/14/17 04:40 ABG O2 Saturation 99 % (95-98) H 11/14/17 04:40 Sodium 133 mEq/L (136-145) L 11/15/17 03:40 Potassium 5.2 mEq/L (3.5-5.1) H 11/15/17 03:40 Chloride 92 mEq/L (98-107) L 11/15/17 03:40 Carbon Dioxide 20 mEq/L (23-29) L 11/15/17 03:40 BUN 121 mg/dL (6-20) H 11/15/17 03:40 Creatinine 7.22 mg/dL (0.70-1.30) H 11/15/17 03:40 Est GFR ( Amer) 9 (> 60) L 11/15/17 03:40 Est GFR (Non-Af Amer) 8 (> 60) L 11/15/17 03:40 Glucose 204 mg/dL (70-105) H 11/15/17 03:40 POC Glucose 256 (58-89) H 11/14/17 23:49 Calculated Osmolality 321 (280-300) H 11/15/17 03:40 Phosphorus 9.7 mg/dL (2.7-4.5) H 11/14/17 03:42 Iron 27 mcg/dL (65-175) L 11/14/17 03:42 % Saturation 15 % (20-55) L 11/14/17 03:42 Transferrin 127 mg/dL (203-362) L 11/14/17 03:42 Ferritin > 1350 ng/ml (20-250) H 11/14/17 03:42 Alkaline Phosphatase 138 Units/L (34-104) H 11/12/17 12:43 Troponin I 0.11 ng/mL (< 0.04) H* 11/15/17 03:40 B-Natriuretic Peptide 2051 pg/mL (Less than 100) H 11/15/17 03:40 Albumin 3.1 g/dL (3.5-5.7) L 11/14/17 03:42 25-OH Vitamin D Total 28 ng/mL (30-80) L 11/14/17 03:42 Folate 26.0 ng/mL (3.0-16.0) H 11/14/17 03:42 Hep Bs Antigen Reactive (Nonreactive) H 11/10/17 09:35 Entero/Rhino (PCR) DETECTED (Not Detect) A 11/10/17 04:30 - Microbiology Findings Microbiology Findings: Microbiology, Last 48 Hours 11/13/17 20:30 Sputum Culture - Preliminary Sputum - Clinical Findings Intake & Output: Intake & Output 11/14/17 11/14/17 11/15/17 15:59 23:59 07:59 Intake Total 1455 / 1455 540 / 540 0 / 0 Output Total 37 / 37 2675 / 2675 22 / 22 Balance 1418 / 1418 -2135 / -2135 -22 / -22 Weight 66.8 kg - VTE Documentation of Mechanical Device: Graduated compression elastic hosiery Consult Discharge Plan - Plan Referrals: Jeromy Wall MD [Primary Care Provider] - <Yamileth Gautam - Last Filed: 11/15/17 21:35> Date of Encounter: 11/15/17 Objective PUL Vital signs: Last Vital Signs Temp 97.8 F 11/15/17 17:25 Pulse 130 11/15/17 18:30 Resp 24 11/15/17 18:30 BP 119/77 11/15/17 18:30 Pulse Ox 96 11/15/17 18:30 Results - Laboratory Findings CBC and BMP: 11/15/17 03:40 11/15/17 03:40 ABG ABG pH 7.40 pH Units (7.32-7.45) 11/14/17 04:40 ABG pCO2 38 mmHg (35-45) 11/14/17 04:40 ABG pO2 118 mmHg (85-104) H 11/14/17 04:40 ABG O2 Saturation 99 % (95-98) H 11/14/17 04:40 PT/INR, D-dimer PT 25.9 Seconds (9.4-12.1) H 11/15/17 03:40 Abnormal lab findings: Abnormal lab results RBC 3.11 M/mcL (4.19-5.50) L 11/15/17 03:40 Hgb 9.1 g/dL (12.9-16.9) L 11/15/17 03:40 Hct 29.8 % (37.5-50.1) L 11/15/17 03:40 MCHC 30.5 g/dL (31.6-35.5) L 11/15/17 03:40 RDW 18.7 % (11.5-14.5) H 11/15/17 03:40 Plt Count 114 K/mcL (140-400) L 11/15/17 03:40 Neutrophils # 9.8 K/mcL (1.6-8.9) H 11/15/17 03:40 Lymphocytes # 0.1 K/mcL (0.6-4.6) L 11/15/17 03:40 Nucleated RBCs/100 WBC 0.4 /100 WBC (0) H 11/15/17 03:40 Platelet Estimate Decreased (Normal) L 11/15/17 03:40 Poikilocytosis 1+ (Not Present) A 11/15/17 03:40 Anisocytosis 1+ (Not Present) A 11/15/17 03:40 Macrocytosis Present (Not Present) A 11/15/17 03:40 Target Cells 1+ (Not Present) A 11/15/17 03:40 PT 25.9 Seconds (9.4-12.1) H 11/15/17 03:40 ABG pO2 118 mmHg (85-104) H 11/14/17 04:40 ABG O2 Saturation 99 % (95-98) H 11/14/17 04:40 Sodium 133 mEq/L (136-145) L 11/15/17 03:40 Potassium 5.2 mEq/L (3.5-5.1) H 11/15/17 03:40 Chloride 92 mEq/L (98-107) L 11/15/17 03:40 Carbon Dioxide 20 mEq/L (23-29) L 11/15/17 03:40 BUN 121 mg/dL (6-20) H 11/15/17 03:40 Creatinine 7.22 mg/dL (0.70-1.30) H 11/15/17 03:40 Est GFR ( Amer) 9 (> 60) L 11/15/17 03:40 Est GFR (Non-Af Amer) 8 (> 60) L 11/15/17 03:40 Glucose 204 mg/dL (70-105) H 11/15/17 03:40 POC Glucose 256 (58-89) H 11/14/17 23:49 Calculated Osmolality 321 (280-300) H 11/15/17 03:40 Phosphorus 9.7 mg/dL (2.7-4.5) H 11/14/17 03:42 Iron 27 mcg/dL (65-175) L 11/14/17 03:42 % Saturation 15 % (20-55) L 11/14/17 03:42 Transferrin 127 mg/dL (203-362) L 11/14/17 03:42 Ferritin > 1350 ng/ml (20-250) H 11/14/17 03:42 Alkaline Phosphatase 138 Units/L (34-104) H 11/12/17 12:43 Troponin I 0.11 ng/mL (< 0.04) H* 11/15/17 03:40 B-Natriuretic Peptide 2051 pg/mL (Less than 100) H 11/15/17 03:40 Albumin 3.1 g/dL (3.5-5.7) L 11/14/17 03:42 25-OH Vitamin D Total 28 ng/mL (30-80) L 11/14/17 03:42 Folate 26.0 ng/mL (3.0-16.0) H 11/14/17 03:42 Hep Bs Antigen Reactive (Nonreactive) H 11/10/17 09:35 Entero/Rhino (PCR) DETECTED (Not Detect) A 11/10/17 04:30 - Microbiology Findings Microbiology Findings: Microbiology, Last 48 Hours 11/13/17 20:30 Sputum Culture - Preliminary Sputum - Clinical Findings Intake & Output: Intake & Output 11/15/17 11/15/17 11/15/17 07:59 15:59 23:59 Intake Total 0 / 0 1000 / 1000 Output Total 150 / 150 3600 / 3600 Balance -22 / -22 850 / 850 -3600 / -3600 Weight 66.8 kg - Attending Attestation I examined this patient and my medical decision-making was reviewed with the Resident Physician. I agree with the documented findings, disposition and treatment plan as described except to the extent set forth below. Patient seen and examined. Labs, radiology, chart personally reviewed. 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 Patient is high risk for re-intubation and I suspect this is mainly pulmonary edema from his underlying cardiac and renal problem and complicated with possible pneumonia. Cardiovascular: Discussed with cardiology team for further recommendations regarding his cardiac disease. GI: Nutrition per dietary and GI prophylaxis per routine Heme: DVT prophylaxis per routine ID: Continue antibiotics and plan to de-escalation Renal; nephrology follow up. Endorcine: blood glucose is monitored Lines: all lines checked and no evidence of infections Skin: skin care to prevent pressure ulcers per nursing routine care Palliative care consult.
[2017-11-15] MEDS ORDERED: 0.9 % Sodium Chloride 250 ML IVC PRN (08:14)
[2017-11-15] MEDS ORDERED: 0.9 % Sodium Chloride 1,000 ML PRIME SCH (08:15)
[2017-11-15] MEDS: Gabapentin 100 MG CAPSULE PO SCH ×2 (09:04→20:07)
[2017-11-15] MEDS: Calcium Acetate 667 MG CAPSULE PO SCH ×3 (09:04→17:28)
[2017-11-15] MEDS: Aspirin 81 MG TAB.CHEW PO SCH (09:04)
[2017-11-15] MEDS: *HR* OxyCODONE Immed Rel 15 MG TABLET PO PRN ×2 (09:04→20:07)
[2017-11-15] MEDS: Renal Vitamin 1 MG CAPSULE PO SCH (09:04)
[2017-11-15] MEDS: Megestrol Acetate 400 MG/10 ML UDC PO SCH (09:04)
[2017-11-15] MEDS: *HR* Acetylcysteine 20% 600 MG/3 ML ORAL SYRINGE PO SCH ×2 (09:05→20:07)
[2017-11-15] MEDS: Fluticasone Propionate Nasal 50 MCG/SPRAY BOTTLE NS SCH (09:05)
[2017-11-15] MEDS: Metoprolol XL (24 HR) Succ 50 MG TAB.ER.24H PO SCH (09:11)
[2017-11-15] MEDS: Diltiazem CD (24hr) 240 MG CAPSULE PO SCH ×2 (09:11→17:28)
--- NOTE | 2017-11-15 09:44 | Cardiology Progress Note ---
Date of Encounter: 11/15/17 Time of Encounter: 09:45 Assessment and Plan (1) Lung cancer Current Visit: No Status: Chronic Per cardiology: Known lung CA. Management per primary service. 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 Qualifiers: Laterality: right Lung location: hilum of lung Qualified Code(s): C34.01 - Malignant neoplasm of right main bronchus (2) Acute exacerbation of chronic obstructive airways disease Current Visit: No Status: Acute Per cardiology: Admitted with COPD exacerbation. Rhino virus positive. Currently extubated, but now back on BiPap. Management per primary and pulmonary service. Palliative Care consult pending. (3) Atrial flutter with rapid ventricular response Current Visit: Yes Status: Acute Per Cardiology: Currently a flutter in the 100s to 110s-- noted to have HR tachyardic with extubation, controlled HR while on mechanical ventilation. Suspect pulmonary status driving tachycardia. Will be difficult to control HR given pulmonary issues. Recent cardioversion at [facility] per reports. On amiodarone 200mg PO daily at home, currently [facility] Discussed with Dr. Benítez, will increase home amio dose to 200 mg PO BID. BP low at times and unlikely to tolerate aggressive titration of BB/CCB. If becomes absolutely necessary, repeat cardioversion could be attempted, but unlikely to be successful skilled nursing. On Coumadin for AC. (4) Elevated troponin Current Visit: No Status: Acute Per Cardiology: Troponin 0.07, 0.05 in the setting of CKD, COPD. Has chronically elevated troponins. ECG with ST segment depression in lateral leads (unchanged from previous ECG when in a.flutter RVR). Known history of CAD with [facility] 2015: * Left Main Coronary Artery The LMCA is angiographically free of disease. * Left Anterior Descending There is a 70% stenosis in the Proximal LAD. The lesion has severely calcification noted. There is a 100% stenosis in the Mid LAD. The lesion has collaterals which feed from left to right and right to left * Circumflex There is a 100% stenosis in the Proximal Circumflex. Distribution supplied by collaterals from FLORES mid LAD and RCA. * Right Coronary Artery There is a 100% stenosis in the Proximal RCA. The lesion has mature collaterals which feed from right to right and right to left feeding the Circumflex. Additional Findings: Grafts * The left internal mammary graft to the Mid LAD is patent. Provides collateralls to OM1 * The saphenous vein graft to the Right PDA is occluded. * The saphenous vein graft to the 1st Marginal is occluded. Do not suspect NSTEMI, suspect demand ischemia related to above. No cardaic rehab warranted. On asa, statin, beta corina. (5) Severe mitral regurgitation Current Visit: No Status: Chronic Per cardiology: Known severe MR per [facility] 03/2017. Patient previously referred to [facility] outpatient for evaluation. Of note, reports at [facility] one month ago. Denies any work up for valve at [facility]. (6) Cardiomyopathy Current Visit: No Status: Chronic Per cardiology: Known cardiomyopathy with [facility] 03/2017 with LVEF 45%. On beta corina. Had been on joelle inhibitor outpatient. Now held due to hypotension-- resume when/if able. Euvolemic on exam. Chest x-ray with possible edema versus pneumonia. Patient is at his baseline weight. On hemodialysis. Strict i/os, daily weights. Qualifiers: Cardiomyopathy type: unspecified Qualified Code(s): I42.9 - Cardiomyopathy , unspecified (7) ESRD (end stage renal disease) on dialysis Current Visit: No Status: Acute Per Cardiology: Known ESRD on HD. Nephrology following. Discussion w patient/family: The assessment and plan as outlined above was discussed with the patient who expressed understanding and agreement. All questions were answered. Thank you for involving us in the care of your patient. Please call with any questions. Subjective Principal diagnosis: ESRD, lung CA, severe MR, a.flutter RVR Interval history: Patient seen this morning now wearing BiPAP. He reports source of breath improved with BiPAP. He denies any chest pain, palpitations, dizziness, any swelling to lower extremities. Objective Vital Signs, Last 4 Hours Temp Pulse Resp BP Pulse Ox 11/15/17 08:57 98.4 F 11/15/17 08:00 112 22 114/84 99 11/15/17 06:00 114 18 114/78 97 General: Conversant HEENT: Atraumatic, Normocephaly Cardiac: Other (Irregularly irregular) Lungs: Other (Respirations labored at rest, scattered rhonchi throughout, diminished breath sounds throughout) Neuro: Alert and responsive, No focal deficits noted Abdomen: Soft, Non-Tender Skin: No rashes noted on visualized skin Musculoskeletal: No Chest Wall Tenderness Extremities: No Edema, Normal Pulses Results 11/15/17 03:40 11/15/17 03:40 Lab Results Laboratory Tests 11/09/17 11/09/17 11/11/17 18:36 18:36 18:27 Hgb 10.3 L Hct 35.4 L Plt Count 193 INR Creatinine 2.91 H Est GFR (Non-Af Amer) 22 L Magnesium 2.2 Troponin I B-Natriuretic Peptide 11/11/17 11/15/17 11/15/17 18:27 03:40 03:40 Hgb Hct Plt Count INR Creatinine Est GFR (Non-Af Amer) Magnesium Troponin I 0.05 H* 0.11 H* B-Natriuretic Peptide 2051 H 11/15/17 11/15/17 11/15/17 03:40 03:40 03:40 Hgb 9.1 L Hct 29.8 L Plt Count 114 L INR 2.4 Creatinine 7.22 H Est GFR (Non-Af Amer) 8 L Magnesium Troponin I B-Natriuretic Peptide ITS Impressions Chest X-Ray 11/09/17 18:29 IMPRESSION: 1. Stable chronic scarring/opacity in the right mid and upper lung zone. 2. Nearly resolved airspace opacities elsewhere in the bilateral lung zones. 3. No new cardiopulmonary disease. D/ / 11/09/2017 19:31:56 Agnes Garcia MD / rupal Interpreting Provider: Agnes Garcia MD Chest CT 11/11/17 11:06 IMPRESSION: Moderate severe emphysema. Architectural distortion and increased density in the right perihilar and posterior right upper lung which is very similar to the prior study 07/10/2017 likely related to prior neoplasm status post radiation treatment. Mild patchy ground-glass opacity within the left lower lobe and lingula, likely infectious pneumonitis. D/ / Eboni Jeffers Cha, MD / Eboni Jeffers Cha, MD Interpreting Provider: Eboni Jeffers Cha, MD Chest X-Ray 11/13/17 17:31 IMPRESSION: The endotracheal tube tip 3.6 cm above the gonzales. Chronic scarring in the right suprahilar region with interval improvement in aeration of the lungs. D/ / 11/13/2017 18:00:22 Ashutosh Grubbs MD / renetta Interpreting Provider: Ashutosh Grubbs MD Chest X-Ray 11/13/17 18:39 IMPRESSION: Interval placement of left jugular central venous catheter. No pneumothorax. Overall increased opacity throughout the lungs, increased since CT 11/11/2017, likely edema. Extensive pneumonia could have this appearance as well. D/ / Eboni Jeffers Cha, MD / Eboni Jeffers Cha, MD Interpreting Provider: Eboni Jeffers Cha, MD X-Ray 11/13/17 19:24 IMPRESSION: Enteric catheter in satisfactory position. D/ / Kalen Moody MD / Kalen Moody MD Interpreting Provider: Kalen Moody MD Chest X-Ray 11/15/17 07:20 IMPRESSION: Patient has been extubated, with similar appearing diffuse increased interstitial markings throughout the lungs bilaterally, with an area of architectural distortion of the right perihilar region which has been seen previously as well. A component of underlying interstitial pneumonitis or pulmonary edema is in the differential superimposed on emphysema. D/ / Gerber Gómez MD / Gerber Gómez MD Interpreting Provider: Gerber Gómez MD Active Medications Acetylcysteine (Acetylcysteine 20%) 600 mg PO BID [facility] Stop: 05/12/18 09:01 Last Admin: 11/15/17 09:05 Dose: 600 mg Albuterol Sulfate (Proventil Neb) 2.5 mg IH Q4HR PRN; Protocol PRN Reason: Wheezing Stop: 05/12/18 01:42 Aspirin (Aspirin) 81 mg PO DAILY [facility] Stop: 05/13/18 09:01 Last Admin: 11/15/17 09:04 Dose: 81 mg Atorvastatin Calcium (Lipitor) 40 mg PO HS [facility] Stop: 05/12/18 21:01 Last Admin: 11/14/17 20:08 Dose: 40 mg Budesonide/Formoterol Fumarate (Symbicort) 2 puff IH BIDR [facility] PRN Reason: Protocol Stop: 05/12/18 10:01 Last Admin: 11/14/17 20:30 Dose: 2 puff Calcium Acetate (Phos-Lo) 667 mg PO TIDWM [facility] Stop: 05/12/18 08:01 Last Admin: 11/15/17 09:04 Dose: 667 mg Dextrose/Water (Dextrose 50% (Syg)) 25 ml IVP AD PRN PRN Reason: Hypoglycemia Stop: 05/13/18 11:15 Diltiazem HCl (Cardizem Cd) 240 mg PO DAILY [facility] Stop: 05/12/18 01:45 Last Admin: 11/14/17 09:31 Dose: Not Given Docusate Sodium (Colace) 100 mg PO DAILY [facility] PRN Reason: Protocol Stop: 05/12/18 09:01 Last Admin: 11/15/17 09:06 Dose: Not Given Famotidine (Pepcid) 10 mg IVP Q12HR [facility] PRN Reason: Protocol Stop: 05/16/18 06:01 Last Admin: 11/15/17 05:15 Dose: 10 mg Fluticasone Propionate (Flonase) 50 mcg NS DAILY [facility] PRN Reason: Protocol Stop: 05/13/18 16:31 Last Admin: 11/15/17 09:05 Dose: 50 mcg Gabapentin (Neurontin) 100 mg PO BID [facility] Stop: 05/14/18 21:01 Last Admin: 11/15/17 09:04 Dose: 100 mg Glucagon (Glucagen) 1 mg IM ONCE PRN PRN Reason: Hypoglycemia Stop: 05/13/18 11:15 Glucose (Gluctose) 15 gm PO ONCE PRN PRN Reason: Hypoglycemia Stop: 05/13/18 11:15 Glucose (Gluctose) 30 gm PO ONCE PRN PRN Reason: Hypoglycemia Stop: 05/13/18 11:15 Guaifenesin (Mucinex) 600 mg PO BID [facility] Stop: 05/12/18 09:01 Last Admin: 11/15/17 09:04 Dose: 600 mg Dextrose (Dextrose 5%) 1,000 mls @ 100 mls/hr IVC .Q10H PRN PRN Reason: HYPOGLYCEMIA Stop: 05/13/18 11:15 Albumin Human (Flexbumin) 12.5 gm in 50 mls @ 60 mls/hr IVPB ONCE PRN PRN Reason: Hypotension Stop: 05/14/18 09:00 Sodium Chloride (0.9 % Sodium Chloride) 1,000 mls @ 0 mls/hr PRIME .Q0M [facility] PRN Reason: As Directed Stop: 05/14/18 09:01 Norepinephrine Bitartrate 4 mg (/ Dextrose) 254 mls @ 19.05 mls/hr IVC CONT LIDA ; 5 MCG/MIN PRN Reason: Protocol Stop: 05/15/18 18:46 Last Titration: 11/14/17 08:30 Dose: 0 mcg/min, 0 mls/hr Sodium Chloride (0.9 % Sodium Chloride) 250 mls @ 937.5 mls/hr IVC .Q16M PRN PRN Reason: Hypotension Stop: 05/16/18 10:49 Amiodarone HCl/Dextrose (Amiodarone Drip Premix 360mg/200ml) 360 mg in 200 mls @ 16.667 mls/hr IVC CONT [facility] PRN Reason: 0.5 MG/MIN Stop: 05/16/18 21:01 Last Admin: 11/14/17 23:44 Dose: 0.5 mg/min, 16.667 mls/hr Piperacillin Sod/Tazobactam Sod (Zosyn Premix 3.375 Gm/200 Ml) 3.375 gm in 200 mls @ 50 mls/hr IVPB Q12HR [facility] Stop: 05/16/18 18:01 Last Admin: 11/15/17 05:17 Dose: 50 mls/hr Sodium Chloride (0.9 % Sodium Chloride) 250 mls @ 937.5 mls/hr IVC .Q16M PRN PRN Reason: Hypotension Stop: 05/17/18 08:15 Sodium Chloride (0.9 % Sodium Chloride) 1,000 mls @ 0 mls/hr PRIME .Q0M L[facility] PRN Reason: As Directed Stop: 05/17/18 08:16 Insulin Human Lispro (Humalog) 0 units SQ Q6HR [facility] PRN Reason: Protocol Stop: 05/16/18 00:01 Last Admin: 11/15/17 05:21 Dose: 4 units Levalbuterol HCl (Xopenex) 1.25 mg IH [id number] [facility] Stop: 05/12/18 04:01 Last Admin: 11/15/17 03:09 Dose: 1.25 mg Megestrol Acetate (Megace) 800 mg PO DAILY [facility] PRN Reason: Protocol Stop: 05/12/18 09:01 Last Admin: 11/15/17 09:04 Dose: 800 mg Methylprednisolone (Solu-Medrol) 40 mg IVP Q12HR [facility] Stop: 05/16/18 18:01 Last Admin: 11/15/17 05:16 Dose: 40 mg Metoprolol Succinate (Toprol Xl) 25 mg PO DAILY [facility] Stop: 05/16/18 09:01 Last Admin: 11/14/17 09:33 Dose: Not Given Midodrine (Proamatine) 2.5 mg PO 0800,1200,1700 [facility] Stop: 05/16/18 12:01 Last Admin: 11/15/17 09:04 Dose: 2.5 mg Naloxone HCl (Narcan) 0.4 mg IVP Q2MIN PRN PRN Reason: Opioid Reversal Stop: 05/12/18 00:47 Ondansetron HCl (Zofran) 4 mg IVP Q6HR PRN PRN Reason: Nausea And Vomiting Stop: 05/12/18 00:47 Oxycodone HCl (Roxicodone) 15 mg PO Q8HR PRN PRN Reason: Pain Stop: 05/12/18 01:42 Last Admin: 11/15/17 09:04 Dose: 15 mg Vancomycin HCl (Vancocin) 0 each IVPB RPHPROT PRN PRN Reason: PULSE DOSING Stop: 05/13/18 23:22 Vitamin B Complex/Vit C/Folic Acid (Renal Caps Softgel) 1 mg PO DAILY [facility] Stop: 05/15/18 09:01 Last Admin: 11/15/17 09:04 Dose: 1 mg Warfarin Sodium (Coumadin Perpt) 1 each PO DAILY@1800 PRN PRN Reason: SEE COMMENTS Stop: 05/12/18 08:01 - Imaging and Cardiology Echo: report reviewed - EKG Interpretation EKG results cardiology: other (Telemetry reviewed with temperature rate as 12 hours 112, atrial flutter, currently a flutter in the 110s) - VTE Documentation of Mechanical Device: Graduated compression elastic hosiery Consult Discharge Plan - Plan Referrals: Jeromy Wall MD [Primary Care Provider] -
[2017-11-15] MEDS: Budesonide/Formoterol 160/4.5 MDI IH SCH ×2 (09:53→22:32)
--- NOTE | 2017-11-15 09:54 | Nephrology Progress Note ---
Addendum entered and electronically signed by Emanuel Gallagher MD 11/15/17 21:59: I examined this patient and my medical decision-making was reviewed with TUNG Patel. I agree with the documented findings, disposition and treatment plan as described except to the extent set forth below. Patient seen on dialysis. Respiratory status still poor. Will likely need daily dialysis/UF for now. Original Note: Date of Encounter: 11/15/17 Time of Encounter: 09:51 - Assessment and Plan (1) ESRD (end stage renal disease) on dialysis Current Visit: No Status: Acute Plan for HD today K+ 5.2-continue renal diet Avoid nephrotoxins if possible (2) Acute and chronic respiratory failure with hypoxia Current Visit: Yes Status: Acute On bipap Ultrafiltration yesterday and HD today to optimize respiratory status per pulmonary team (3) Atrial flutter with rapid ventricular response Current Visit: Yes Status: Acute per cardiology team (4) Anemia Current Visit: No Status: Acute Hgb 9.1 stable Goal hgb 10-11 Transfuse per parameters Qualifiers: Anemia type: due to chronic kidney disease Chronic kidney disease stage: on chronic dialysis Qualified Code(s): N18.6 - End stage renal disease; D63.1 - Anemia in chronic kidney disease; D63.1 - Anemia in chronic kidney disease; Z99.2 - Dependence on renal dialysis; Z99.2 - Dependence on renal dialysis; Z99.2 - Dependence on renal dialysis; Z99.2 - Dependence on renal dialysis Subjective Principal diagnosis: ESRD, lung CA, severe MR, a.flutter RVR Interval history: Patient was seen and examined in ICU. Currently on bipap. States he is doing ok. Respirations labored but able to speak in complete short sentences. Objective - Vital Signs Vital signs: Vital Signs Temp Pulse Resp BP Pulse Ox 11/15/17 09:30 115 23 141/84 97 11/15/17 08:57 98.4 F 11/15/17 08:30 112 22 114/84 97 11/15/17 08:00 112 22 114/84 99 11/15/17 06:00 114 18 114/78 97 11/15/17 05:00 113 18 103/73 93 11/15/17 04:49 98.0 F 11/15/17 04:00 114 22 114/74 96 11/15/17 03:09 25 107/71 96 11/15/17 03:00 113 20 107/71 94 11/15/17 02:00 112 20 116/73 95 11/15/17 01:00 113 26 104/70 96 11/15/17 00:07 98.1 F 11/15/17 00:00 112 22 91/72 95 11/14/17 23:00 113 20 102/77 93 11/14/17 22:00 115 25 86/62 96 11/14/17 21:35 20 103/91 97 11/14/17 21:00 116 24 103/91 96 11/14/17 20:33 98.2 F 11/14/17 20:30 33 104/74 99 11/14/17 20:00 115 24 104/74 90 11/14/17 19:00 114 22 91/59 99 11/14/17 18:10 97.7 F 18 114/62 11/14/17 18:00 110 20 101/69 97 11/14/17 17:50 113/60 11/14/17 17:35 114/73 18 17:20 122/69 11/14/17 17:05 128/97 11/14/17 17:00 115 20 102/68 100 18 16:50 116/88 11/14/17 16:35 120/71 18 16:24 20 100 18 16:20 118/69 18 16:05 125/69 18 16:00 97.7 F 115 20 122/87 100 11/14/17 15:50 97.8 F 22 117/64 18 15:00 122 22 118/63 96 11/14/17 14:00 122 22 130/80 96 11/14/17 13:00 122 22 110/75 92 11/14/17 12:00 98.5 F 125 22 105/72 92 11/14/17 11:05 21 97 11/14/17 11:04 97 11/14/17 11:00 123 22 90/61 97 11/14/17 10:20 129 25 91/57 99 11/14/17 10:00 129 25 91/57 99 11/14/17 09:59 26 99 Intake and Output 0111/15/17 11/15/17 23:59 07:59 15:59 Intake Total 540 / 540 0 / 0 Output Total 2675 / 2675 100 / 100 Balance -2135 / -2135 -22 / -22 -100 / -100 Intake: IV Fluids 300 / 300 Amiodarone Premix 150mg/100mL 100 / 100 150 mg In 100 ml @ 300 mls/hr IVPB ONCE ONE Rx#:[id number] Zosyn Premix 3.375 GM/200 ML 3. 200 / 200 375 gm In 200 ml @ 50 mls/hr IVPB Q12HR [facility] Rx#:[id number] Oral 240 / 240 0 / 0 Output: Urine 0 / 0 Total Dialysis (HD) Output 2600 / 2600 Catheter 75 / 75 100 / 100 Other: Weight 66.8 kg Blood Glucose* 256 Hemodialysis Net Fluid Removed 2000 (mL) Patient Weight 11/15/17 23:59 Weight 66.8 kg - General Appearance General appearance: Present: cachectic, chronically ill, frail EENT: Present: ATNC, mucous membranes moist, hearing intact, vision intact Neck: Present: supple Respiratory: Present: course breath sounds, rhonchi Cardiology: Present: no edema, rapid rhythm, irregular rhythm Dialysis Vascular Access: Arteriovenous Fistula Gastrointestinal: Present: no tenderness, no guarding Integumentary: Present: warm and dry Neurologic: Present: alert and oriented x3 Psychiatric: Present: mood/affect appropriate, cooperative - Lab 11/15/17 03:40 11/15/17 03:40 Most recent lab results ABG pH 7.40 pH Units (7.32-7.45) 11/14/17 04:40 ABG pCO2 38 mmHg (35-45) 11/14/17 04:40 ABG pO2 118 mmHg (85-104) H 11/14/17 04:40 ABG HCO3 24 mEq/L (21-27) 11/14/17 04:40 ABG O2 Saturation 99 % (95-98) H 11/14/17 04:40 Calcium 8.8 mg/dL (8.6-10.3) 11/15/17 03:40 Phosphorus 9.7 mg/dL (2.7-4.5) H 11/14/17 03:42 Magnesium 2.2 mg/dL (1.6-2.6) 11/11/17 18:27 - VTE Documentation of Mechanical Device: Graduated compression elastic hosiery Consult Discharge Plan - Plan Referrals: Jeromy Wall MD [Primary Care Provider] -
[2017-11-15] MEDS: Amiodarone Premix 360 MG/200 ML BAG IVC SCH ×2 (10:41→22:15)
--- NOTE | 2017-11-15 15:40 | Palliative - Consult Note ---
Date of Encounter: 11/15/17 Time of Encounter: 14:00 - Assessment and Plan (1) Dyspnea Current Visit: Yes Status: Acute Assessment and plan: Extubated yesterday - remains on bipap support - for dialysis this afternoon. Hoping he will be less short of breath and can tolerate off bipap once more fluid removed. MOnitor Qualifiers: Dyspnea type: unspecified Qualified Code(s): R06.00 - Dyspnea, unspecified (2) Counseling regarding advanced care planning and goals of care Current Visit: Yes Status: Acute Assessment and plan: Attempted to discuss briefly with patient - he can answer yes/no question, but becomes short of breath and difficult to understand while on bipap. He would like his here for conversation. Attempted to contact her via phone - was told she was at [facility] today with son, while he was getting a procedure and not expected back til later today. Left him my contact information and asked that he have Radha call me when she arrives home, - will attempt to scheduled meeting for tomorrow. Update - Radha just returned my call at 1600 and states she will be here tomorrow at 1130 to meet. (3) Acute exacerbation of chronic obstructive airways disease Current Visit: No Status: Acute (4) Systolic heart failure secondary to coronary artery disease Current Visit: No Status: Chronic Assessment and plan: Cardiology following. (5) ESRD (end stage renal disease) on dialysis Current Visit: No Status: Chronic Assessment and plan: Nephrology following Palliative-CN HPI - Data of Consult Consult date: 11/15/17 Requesting Physician: Dennis Hamilton MD Primary Care Provider: Jeromy Wall MD - Consult Narrative History of present illness: Mr. Guardado is a 61 year old male with PMH of ESRD on HD, lung ca, COPD on LTOT, Afib on Coumadin, HTN who was sent to the ER for dialysis for shortness of breath and palpitations. In the ER pt was reported to be dyspneic and in Aflutter with rate in 150s. Pt noted to have diffuse wheezing, was given IV steroids and started on cardizem gtt. . Pt reports of not taking his home medications prior to dialysis including Cardizem, Coreg, and Coumadin. He was treated for COPD exacerbation/afib-flutter and received dialysis. He has had complicated hospital course thus far, and had rapid response called day after admission for mental status change and few days later had agonal breathing and decreased responsiveness in dialysis requiring intubation and transfer to ICU. He was extubated yesterday, but has required bipap to assist with his breathing. Pulmonology, nephrology, and cardiology all following closely. Palliative was consulted to assist with goals of care discussion for this fragile pt with multiple medical comorbid conditions. CC: Dennis Hamilton MD Past Med Surg Social Fam HX - Past Medical History Medical history: arthritis, cancer, CHF, coronary artery disease, diabetes, dialysis, GERD, hyperlipidemia, hypertension, myocardial infarction, peripheral artery disease, renal disease, other Psychiatric history: anxiety, depression - Past Surgical History Surgical History: angioplasty/stent, carotid endarterectomy, coronary bypass ( CABG), orthopedic, other, other - Social History Smoking Status: Former smoker Smokeless Tobacco Status: No (does not smoke) Alcohol use: none Drug use: none - Family History Brother Adopted: No Family Member Ethnicity: Non- Living Status: Hx Family Cardiac Disorders: Yes Hx Family Respiratory Disorders: Yes (dad black lung) Hx Family Cancer: Yes (mother) Hx Family GI Disorders: No Hx Family Endocrine Disorder: Yes (sister) Hx Family Neuromuscular Disorders: No Hx Family Neurologic Disorders: No Hx Family HEENT Disorders: No Hx Family Autoimmune Disorders: No Sister Family Member Ethnicity: Non- Living Status: Still Living Hx Family Cardiac Disorders: Yes (HD) Hx Family Respiratory Disorders: Yes (COPD) Hx Family Endocrine Disorder: Yes (Thyroid disease) Mother Adopted: No Family Member Ethnicity: Non- Living Status: Hx Family Cardiac Disorders: No Hx Family Respiratory Disorders: No Hx Family Cancer: Yes (bone) Hx Family GI Disorders: No Hx Family Endocrine Disorder: No Hx Family Neuromuscular Disorders: No Hx Family Neurologic Disorders: No Hx Family HEENT Disorders: No Hx Family Autoimmune Disorders: No Father Adopted: No Family Member Ethnicity: Non- Living Status: Age at : 70 Hx Family Cardiac Disorders: No Hx Family Respiratory Disorders: Yes Hx Family Cancer: No Hx Family GI Disorders: No Hx Family Endocrine Disorder: No Hx Family Neuromuscular Disorders: No Hx Family Neurologic Disorders: No Hx Family HEENT Disorders: No Hx Family Autoimmune Disorders: No Medications and Allergies Famotidine [Pepcid] 10 mg PO BID #60 tablet 09/05/15 [Rx] Albuterol Sulfate [Albuterol Inhaler] 2 puff IH Q4HR 07/29/15 [History] Budesonide/Formoterol 160/4.5 [Symbicort] 2 puff IH BIDR 07/29/15 [History] Gabapentin [Neurontin] 100 mg PO TID 07/29/15 [History] Calcium Acetate [Phos-LO] 667 mg PO TIDWM #90 capsule 10/02/15 [Rx] Furosemide [Lasix] 40 mg PO DAILY 08/31/16 [History] Oxygen 2.5 l NS AD 08/31/16 [History] Albuterol Neb [Proventil Neb] 2.5 mg IH Q4HR PRN #30 vial.neb 09/03/16 [Rx] Multivitamin [Multivitamins] 1 cap PO DAILY 11/03/16 [History] Magic Mouthwash [Magic Mouthwash BLM] 10 ml PO QID PRN #240 ml 12/18/16 [Rx] Docusate [Colace] 100 mg PO DAILY #20 capsule 03/02/17 [Rx] Megestrol Acetate [Megace] 800 mg PO DAILY #400 mls 04/12/17 [Rx] Acetylcysteine 20% 600 mg PO BID #60 syringe 09/07/17 [Rx] Atorvastatin [Lipitor] 40 mg PO HS #30 tablet 09/07/17 [Rx] Levalbuterol Neb [Xopenex Neb] 1.25 mg IH Q6H PRN #60 vial.neb 09/07/17 [Rx] Lidocaine/Prilocaine CREAM [Emla] 1 gm TP DAILY PRN tube 09/07/17 [Rx] Ondansetron [Zofran ODT] 8 mg SL Q4HR PRN #60 tab.rapdis 09/07/17 [Rx] OxyCODONE Immed Rel [Roxicodone 15 MG] 15 mg PO Q8HR PRN #90 tablet 09/24/17 [Rx ] Carvedilol [Coreg] 25 mg PO BID 11/10/17 [History] Diltiazem CD (24hr) [Cardizem CD] 240 mg PO DAILY 11/10/17 [History] Guaifenesin [Mucinex] 600 mg PO BID 11/10/17 [History] Warfarin [Coumadin] 1 - 2 tab PO DAILY 11/12/17 [History] 3 Allergy/AdvReac Type Severity Reaction Status Date / Time pollen extracts Allergy Itching Verified 11/12/17 11:02 shellfish derived AdvReac Nausea Verified 11/12/17 11:02 IVP DYE Allergy Intermediate Vomiting Uncoded 11/12/17 11:02 All systems: reviewed and no additional remarkable complaints except as stated ( shortness of breath, generalized weakness, unable to elaborate more r/t bipap) Palliative Care-Exam - Constitutional Vitals: Temp Pulse Resp BP Pulse Ox 98.2 F 122 22 106/85 98 11/15/17 13:15 11/15/17 14:30 11/15/17 14:30 11/15/17 15:30 11/15/17 14:30 General appearance: Present: mild distress - Head Head Exam: Present: normal inspection, normocephalic - Eye Eye exam: Present: normal appearance, PERRL - Respiratory Additional comments: Rhonchi throughout anterior chest. Remains on bipap - Cardiovascular Cardiovascular exam: Present: tachycardia - GI/Abdominal Exam GI/Abdominal exam: Present: normal bowel sounds, soft - Extremities Exam Extremities exam: Present: normal capillary refill, normal inspection Additional comments: Left toes cool to touch - Neurological Exam Neurological exam: Present: alert, oriented X3, strengths equal and symetr throughout - Skin Skin exam: Present: dry, warm Internal Medicine - CN: Reslt - Labs CBC & Chem 7: 11/15/17 03:40 11/15/17 03:40 Labs: Short CBC 11/15/17 Range/Units 03:40 WBC 10.5 (4.3-11.1) K/mcL Hgb 9.1 L (12.9-16.9) g/dL Hct 29.8 L (37.5-50.1) % Plt Count 114 L (140-400) K/mcL Neutrophils # 9.8 H (1.6-8.9) K/mcL BMP 11/15/17 03:40 Sodium 133 L Potassium 5.2 H Chloride 92 L Carbon Dioxide 20 L BUN 121 H Creatinine 7.22 H Glucose 204 H Calcium 8.8 Cardiac Enzymes 11/15/17 Range/Units 03:40 Troponin I 0.11 H* (< 0.04) ng/mL - ABG Interpretation ABG results: ABG ABG pH 7.40 pH Units (7.32-7.45) 11/14/17 04:40 ABG pCO2 38 mmHg (35-45) 11/14/17 04:40 ABG pO2 118 mmHg (85-104) H 11/14/17 04:40 ABG O2 Saturation 99 % (95-98) H 11/14/17 04:40 PT/INR, D-dimer PT 25.9 Seconds (9.4-12.1) H 11/15/17 03:40 - Impressions Impressions Chest X-Ray 11/15/17 07:20 IMPRESSION: Patient has been extubated, with similar appearing diffuse increased interstitial markings throughout the lungs bilaterally, with an area of architectural distortion of the right perihilar region which has been seen previously as well. A component of underlying interstitial pneumonitis or pulmonary edema is in the differential superimposed on emphysema. D/ / Gerber Gómez MD / Gerber Gómez MD Interpreting Provider: Gerber Gómez MD Consult Discharge Plan - Plan Referrals: Jeromy Wall MD [Primary Care Provider] - Palliative Quality Palliative Quality: Screen for Code Status: Yes, Screen for Goals of Care: Yes, Screen for Pain: Yes, If Pain Regimen Started, Initiate Bowel Regimen: Yes, Screen for Nausea/Vomitting: Yes
[2017-11-15] MEDS ORDERED: *HR* Warfarin 2 MG TABLET PO ONE (18:00)
[2017-11-15] MEDS: Norepinephrine 4 MG in D5% in Water 250 ML IVC SCH (20:06)
[2017-11-15] MEDS: *HR* Amiodarone 200 MG TABLET PO SCH (20:07)
[2017-11-16] MEDS: Levalbuterol Neb 1.25 MG/3 ML IH SCH ×4 (03:52→21:45)
[2017-11-16] MEDS: *HR* OxyCODONE Immed Rel 15 MG TABLET PO PRN ×3 (04:06→18:00)
[2017-11-16 04:56] LABS: Basophils % 0.1 %; Hematocrit 30.9 % (37.5-50.1); Hemoglobin 9.7 g/dL (12.9-16.9); Immature Granulocytes % 0.4 % (0-4); Lymphocytes # 0.1 K/mcL (0.6-4.6); Lymphocytes % 1.2 %; Mean Corpuscular HGB Conc 31.4 g/dL (31.6-35.5); Mean Corpuscular Hemoglobin 29.7 pg (28.0-33.3); Mean Corpuscular Volume 94.5 fL (83.0-100.0); Mean Platelet Volume 11.4 fL (9.4-12.4); Monocytes # 0.4 K/mcL (0.0-1.3); Neutrophils # 10.2 K/mcL (1.6-8.9); Platelet Count 119 K/mcL (140-400); Red Blood Count 3.27 M/mcL (4.19-5.50); Red Cell Distribution Width 18.9 % (11.5-14.5); Segmented Neutrophils % 94.3 %
[2017-11-16 04:57] LABS: INR 2.5
[2017-11-16 05:16] LABS: Calcium 9.3 mg/dL (8.6-10.3); Potassium 4.2 mEq/L (3.5-5.1)
[2017-11-16 05:55] LABS: Platelet Estimate Slight Decrease (Normal)
[2017-11-16 05:56] LABS: Acanthocytes 2+ (Not Present); Large Platelets Present (Not Present); Ovalocytes 1+ (Not Present); Poikilocytosis 1+ (Not Present)
[2017-11-16 05:57] LABS: Anisocytosis 1+ (Not Present); Macrocytosis Present (Not Present); Microcytosis Present (Not Present); Target Cells 1+ (Not Present)
[2017-11-16 05:58] LABS: Hypochromasia Present (Not Present)
[2017-11-16] MEDS: Famotidine 20 MG/2 ML VIAL IVP SCH ×2 (05:58→18:01)
[2017-11-16] MEDS: MethylPREDNISolone 40 MG/ML VIAL IVP SCH ×2 (05:58→18:01)
[2017-11-16] MEDS: Piperacillin/Tazobactam 3.375 GM/200 ML BAG IVPB SCH ×2 (05:59→18:42)
[2017-11-16 06:04] LABS: ABG Base Excess 1 mEq/L (-2 to 3); ABG HCO3 25 mEq/L (21-27); ABG Oxygen Saturation 95 % (95-98); ABG PCO2 37 mmHg (35-45); ABG PH 7.43 pH Units (7.32-7.45); ABG PO2 73 mmHg (85-104); ABG TCO2 26 mEq/L (20-26); Blood Gas Respiration Rate 12
[2017-11-16] MEDS: Insulin LISPRO 300 UNITS/3 ML VIAL SQ SCH ×3 (06:05→20:08)
--- NOTE | 2017-11-16 06:47 | Pulmonology Progress Note ---
<Anshu Sky - Last Filed: 11/16/17 11:55> Date of Encounter: 11/16/17 Time of Encounter: 09:18 Assessment and Plan (1) Acute and chronic respiratory failure with hypoxia Current Visit: Yes Status: Acute Patient was extubated two days ago Repeat ABG improving pH 7.43, pCO2 37, pO2 73 and HCO3 26. Required BiPAP throughout the day HD yesterday - 3 kg over 4 hours Patient is high risk and will continue to monitor closely throughout the day intermediate manager planning: Spoke with his oncologist; prognosis shows that he had a 15-20% cure rate he completed his entire therapy regimen, though he only completed roughly 50%. Pending disposition with palliative team, nephrology and cardiology meeting with the this morning. (2) Metabolic encephalopathy Current Visit: Yes Status: Resolved Resolving Patient is alert and oriented 3 (3) Hypotension Current Visit: Yes Status: Acute Patient is off pressor support at this time Blood pressure stable Tolerating Midodrine Will continue to monitor closely Qualifiers: Hypotension type: unspecified hypotension type Qualified Code(s): I95.9 - Hypotension, unspecified (4) Systolic CHF Current Visit: Yes Status: Acute ECHO from August 2017 showed ejection fraction of 45%, moderate to severe eccentric mitral regurgitation and moderate pulmonary hypertension. CXR post-intubation demonstrated cardiomegaly with mild worsening vascular congestion consistent with CHF History of CAD s/p CABG 2008 and [facility] 2014 Trop mildly elevated at 0.11, likely demand ischemia Holding fluids Patient underwent 3 kg removal with HD yesterday, plan for HD daily Qualifiers: Congestive heart failure chronicity: chronic Qualified Code(s): I50.22 - Chronic systolic (congestive) heart failure (5) Cardiomyopathy Current Visit: No Status: Chronic Cardiology following - appreciate recommendations History of CAD s/p CABG 2008 [facility] 2014; see cardio note Most recent ECHO from August 2017 showed ejection fraction of 45%, moderate to severe eccentric mitral regurgitation and moderate pulmonary hypertension Continue optimal medical management at this time with aspirin, statin, beta corina Cardiology looked into his case further and found possible consult to a tertiary center for his severe MR. They are considering intervention if indicated pending disposition with palliative care team and this morning with his history of squamous cell lung carcinoma that has a poor prognosis Qualifiers: Cardiomyopathy type: unspecified Qualified Code(s): I42.9 - Cardiomyopathy , unspecified (6) Acute exacerbation of chronic obstructive airways disease Current Visit: No Status: Acute Continue present regimen with IV Abx, solu-medrol and bronchodilators (7) Community acquired pneumonia Current Visit: No Status: Acute CT showed left lower lung and lingula opacity Sputum culture showing staph aureus and fungal elements Currently on Vancomycin and Zosyn for broad coverage Continue Solu-Medrol 40q12 Xopenex q6hrs LIDA Qualifiers: Laterality: right Lung location: unspecified part of lung Qualified Code( s): J18.9 - Pneumonia, unspecified organism (8) HTN (hypertension) Current Visit: No Status: Chronic Qualifiers: Hypertension type: essential hypertension Qualified Code(s): I10 - Essential (primary) hypertension (9) Leukocytosis Current Visit: No Status: Resolved Resolved Qualifiers: Leukocytosis type: unspecified Qualified Code(s): D72.829 - Elevated white blood cell count, unspecified (10) ESRD (end stage renal disease) Current Visit: No Status: Chronic Follows with Dr. Wells as outpatient Creatinine 5.72- > 7.22 -> 4.64 Had 3 kg off yesterday with HD Management per nephrology team Plan for daily hemodialysis (11) Atrial flutter Current Visit: No Status: Chronic Cardiology and primary team managing HR stable on Toprol 25 qd and Cardizem 240 qd Heart rate currently in the 120s Still on amiodarone drip Qualifiers: Atrial flutter type: typical Qualified Code(s): I48.3 - Typical atrial flutter (12) Acute bronchitis due to Rhinovirus Current Visit: No Status: Acute Respiratory Panel positive for rhinovirus Continued droplet precautions (13) DVT prophylaxis Current Visit: No Status: Acute Coumadin therapy, INR 2.5 Subjective Principal diagnosis: ESRD, lung CA, severe MR, a.flutter RVR Interval history: Patient is admitted for acute on chronic respiratory failure with hypoxia secondary to COPD exacerbation and pneumonia Extubated 2 days ago Patient is resting comfortably and tolerating BiPAP He has no new concerns at this time No overnight events Had 3kg off yesterday during HD Plan for palliative care consults with this morning Objective PUL Vital signs: Last Vital Signs Temp 99.1 F 11/16/17 05:15 Pulse 126 11/16/17 05:00 Resp 30 11/16/17 05:00 BP 99/64 11/16/17 05:00 Pulse Ox 93 11/16/17 05:00 General appearance: no acute distress Eyes: nonicteric ENT: oropharynx moist Neck: supple Effort: normal Auscultation: bilateral: wheezes, rales Cardiovascular: irregular rhythm Gastrointestinal: normoactive bowel sounds, non-distended Integumentary: normal Extremities: no cyanosis, no edema, no clubbing Musculoskeletal: no deformities normal mental status, non-focal exam mood appropriate, affect normal Results - Laboratory Findings CBC and BMP: 11/16/17 04:20 11/16/17 04:20 ABG ABG pH 7.43 pH Units (7.32-7.45) 11/16/17 06:01 ABG pCO2 37 mmHg (35-45) 11/16/17 06:01 ABG pO2 73 mmHg (85-104) L 11/16/17 06:01 ABG O2 Saturation 95 % (95-98) 11/16/17 06:01 PT/INR, D-dimer PT 28.0 Seconds (9.4-12.1) H 11/16/17 04:20 Abnormal lab findings: Abnormal lab results RBC 3.27 M/mcL (4.19-5.50) L 11/16/17 04:20 Hgb 9.7 g/dL (12.9-16.9) L 11/16/17 04:20 Hct 30.9 % (37.5-50.1) L 11/16/17 04:20 MCHC 31.4 g/dL (31.6-35.5) L 11/16/17 04:20 RDW 18.9 % (11.5-14.5) H 11/16/17 04:20 Plt Count 119 K/mcL (140-400) L 11/16/17 04:20 Neutrophils # 10.2 K/mcL (1.6-8.9) H 11/16/17 04:20 Lymphocytes # 0.1 K/mcL (0.6-4.6) L 11/16/17 04:20 Nucleated RBCs/100 WBC 0.4 /100 WBC (0) H 11/15/17 03:40 Platelet Estimate Slight Decrease (Normal) L 11/16/17 04:20 Large Platelets Present (Not Present) A 11/16/17 04:20 Hypochromasia Present (Not Present) A 11/16/17 04:20 Poikilocytosis 1+ (Not Present) A 11/16/17 04:20 Anisocytosis 1+ (Not Present) A 11/16/17 04:20 Microcytosis Present (Not Present) A 11/16/17 04:20 Macrocytosis Present (Not Present) A 11/16/17 04:20 Target Cells 1+ (Not Present) A 11/16/17 04:20 Ovalocytes 1+ (Not Present) A 11/16/17 04:20 Acanthocytes (Spur) 2+ (Not Present) A 11/16/17 04:20 PT 28.0 Seconds (9.4-12.1) H 11/16/17 04:20 ABG pO2 73 mmHg (85-104) L 11/16/17 06:01 Chloride 94 mEq/L (98-107) L 11/16/17 04:20 BUN 62 mg/dL (6-20) H 11/16/17 04:20 Creatinine 4.64 mg/dL (0.70-1.30) H 11/16/17 04:20 Est GFR ( Amer) 16 (> 60) L 11/16/17 04:20 Est GFR (Non-Af Amer) 13 (> 60) L 11/16/17 04:20 Glucose 161 mg/dL (70-105) H 11/16/17 04:20 POC Glucose 180 (58-89) H 11/15/17 23:15 Calculated Osmolality 303 (280-300) H 11/16/17 04:20 Phosphorus 9.7 mg/dL (2.7-4.5) H 11/14/17 03:42 Iron 27 mcg/dL (65-175) L 11/14/17 03:42 % Saturation 15 % (20-55) L 11/14/17 03:42 Transferrin 127 mg/dL (203-362) L 11/14/17 03:42 Ferritin > 1350 ng/ml (20-250) H 11/14/17 03:42 Alkaline Phosphatase 138 Units/L (34-104) H 11/12/17 12:43 Troponin I 0.11 ng/mL (< 0.04) H* 11/15/17 03:40 B-Natriuretic Peptide 2051 pg/mL (Less than 100) H 11/15/17 03:40 Albumin 3.1 g/dL (3.5-5.7) L 11/14/17 03:42 25-OH Vitamin D Total 28 ng/mL (30-80) L 11/14/17 03:42 Folate 26.0 ng/mL (3.0-16.0) H 11/14/17 03:42 Hep Bs Antigen Reactive (Nonreactive) H 11/10/17 09:35 Entero/Rhino (PCR) DETECTED (Not Detect) A 11/10/17 04:30 - Microbiology Findings Microbiology Findings: Microbiology, Last 48 Hours 11/13/17 20:30 Sputum Culture - Preliminary Sputum - Clinical Findings Intake & Output: Intake & Output 11/15/17 11/15/17 11/16/17 15:59 23:59 07:59 Intake Total 1000 / 1000 400 / 400 10 / 10 Output Total 150 / 150 3625 / 3625 10 / 10 Balance 850 / 850 -3225 / -3225 0 / 0 - VTE Documentation of Mechanical Device: Graduated compression elastic hosiery Consult Discharge Plan - Plan Referrals: Jeromy Wall MD [Primary Care Provider] - <Yamileth Gautam - Last Filed: 11/16/17 14:17> Date of Encounter: 11/16/17 Objective PUL Vital signs: Last Vital Signs Temp 98.1 F 11/16/17 12:28 Pulse 101 11/16/17 11:00 Resp 25 11/16/17 11:26 BP 108/75 11/16/17 11:00 Pulse Ox 100 11/16/17 11:26 Results - Laboratory Findings CBC and BMP: 11/16/17 04:20 11/16/17 04:20 ABG ABG pH 7.43 pH Units (7.32-7.45) 11/16/17 06:01 ABG pCO2 37 mmHg (35-45) 11/16/17 06:01 ABG pO2 73 mmHg (85-104) L 11/16/17 06:01 ABG O2 Saturation 95 % (95-98) 11/16/17 06:01 PT/INR, D-dimer PT 28.0 Seconds (9.4-12.1) H 11/16/17 04:20 Abnormal lab findings: Abnormal lab results RBC 3.27 M/mcL (4.19-5.50) L 11/16/17 04:20 Hgb 9.7 g/dL (12.9-16.9) L 11/16/17 04:20 Hct 30.9 % (37.5-50.1) L 11/16/17 04:20 MCHC 31.4 g/dL (31.6-35.5) L 11/16/17 04:20 RDW 18.9 % (11.5-14.5) H 11/16/17 04:20 Plt Count 119 K/mcL (140-400) L 11/16/17 04:20 Neutrophils # 10.2 K/mcL (1.6-8.9) H 11/16/17 04:20 Lymphocytes # 0.1 K/mcL (0.6-4.6) L 11/16/17 04:20 Nucleated RBCs/100 WBC 0.4 /100 WBC (0) H 11/15/17 03:40 Platelet Estimate Slight Decrease (Normal) L 11/16/17 04:20 Large Platelets Present (Not Present) A 11/16/17 04:20 Hypochromasia Present (Not Present) A 11/16/17 04:20 Poikilocytosis 1+ (Not Present) A 11/16/17 04:20 Anisocytosis 1+ (Not Present) A 11/16/17 04:20 Microcytosis Present (Not Present) A 11/16/17 04:20 Macrocytosis Present (Not Present) A 11/16/17 04:20 Target Cells 1+ (Not Present) A 11/16/17 04:20 Ovalocytes 1+ (Not Present) A 11/16/17 04:20 Acanthocytes (Spur) 2+ (Not Present) A 11/16/17 04:20 PT 28.0 Seconds (9.4-12.1) H 11/16/17 04:20 ABG pO2 73 mmHg (85-104) L 11/16/17 06:01 Chloride 94 mEq/L (98-107) L 11/16/17 04:20 BUN 62 mg/dL (6-20) H 11/16/17 04:20 Creatinine 4.64 mg/dL (0.70-1.30) H 11/16/17 04:20 Est GFR ( Amer) 16 (> 60) L 11/16/17 04:20 Est GFR (Non-Af Amer) 13 (> 60) L 11/16/17 04:20 Glucose 161 mg/dL (70-105) H 11/16/17 04:20 POC Glucose 180 (58-89) H 11/15/17 23:15 Calculated Osmolality 303 (280-300) H 11/16/17 04:20 Phosphorus 9.7 mg/dL (2.7-4.5) H 11/14/17 03:42 Iron 27 mcg/dL (65-175) L 11/14/17 03:42 % Saturation 15 % (20-55) L 11/14/17 03:42 Transferrin 127 mg/dL (203-362) L 11/14/17 03:42 Ferritin > 1350 ng/ml (20-250) H 11/14/17 03:42 Alkaline Phosphatase 138 Units/L (34-104) H 11/12/17 12:43 Troponin I 0.11 ng/mL (< 0.04) H* 11/15/17 03:40 B-Natriuretic Peptide 2051 pg/mL (Less than 100) H 11/15/17 03:40 Albumin 3.1 g/dL (3.5-5.7) L 11/14/17 03:42 25-OH Vitamin D Total 28 ng/mL (30-80) L 11/14/17 03:42 Folate 26.0 ng/mL (3.0-16.0) H 11/14/17 03:42 Hep Bs Antigen Reactive (Nonreactive) H 11/10/17 09:35 Entero/Rhino (PCR) DETECTED (Not Detect) A 11/10/17 04:30 - Microbiology Findings Microbiology Findings: Microbiology, Last 48 Hours 11/13/17 20:30 Sputum Culture - Preliminary Sputum Staphylococcus aureus Fungal Elements - Clinical Findings Intake & Output: Intake & Output 11/15/17 11/16/17 11/16/17 23:59 07:59 15:59 Intake Total 400 / 400 200 / 200 Output Total 3625 / 3625 50 / 50 Balance -3225 / -3225 0 / 0 150 / 150 - Attending Attestation I examined this patient and my medical decision-making was reviewed with the Resident Physician. I agree with the documented findings, disposition and treatment plan as described except to the extent set forth below. Patient seen and examined. Labs, radiology, chart personally reviewed. Agree with resident's history and physical, assessment, plan with following comments: TAPER/FINISHER: Patient follows commands, Pulmonary: Acceptable oxygenation and ventilation on noninvasive ventilation. I had discussion with patient and also his and I told him in my opinion as long as he has underlying cardiac disease and cannot be repaired then he will have problems especially with his history of lung cancer. Patient remain full code at this time. Cardiovascular: Discussed with cardiology team and appreciate their help in imports. GI: Nutrition per dietary and GI prophylaxis per routine Heme: DVT prophylaxis per routine and discussed with oncology team. ID: Continue antibiotics and plan to de-escalation Renal; discussed with nephrology. Endorcine: blood glucose is monitored Lines: all lines checked and no evidence of infections Skin: skin care to prevent pressure ulcers per nursing routine care Palliative care has seen the patient. Overall prognosis is poor.
[2017-11-16] MEDS: Megestrol Acetate 400 MG/10 ML UDC PO SCH (07:59)
[2017-11-16] MEDS: Metoprolol XL (24 HR) Succ 50 MG TAB.ER.24H PO SCH (08:00)
[2017-11-16] MEDS: Calcium Acetate 667 MG CAPSULE PO SCH ×3 (08:00→18:01)
[2017-11-16] MEDS: *HR* Acetylcysteine 20% 600 MG/3 ML ORAL SYRINGE PO SCH ×2 (08:00→20:16)
[2017-11-16] MEDS: *HR* Amiodarone 200 MG TABLET PO SCH ×2 (08:00→20:16)
[2017-11-16] MEDS: Gabapentin 100 MG CAPSULE PO SCH ×2 (08:01→20:16)
[2017-11-16] MEDS: Renal Vitamin 1 MG CAPSULE PO SCH (08:01)
[2017-11-16] MEDS: Aspirin 81 MG TAB.CHEW PO SCH (08:01)
[2017-11-16] MEDS: Diltiazem CD (24hr) 240 MG CAPSULE PO SCH (08:03)
[2017-11-16] MEDS: Fluticasone Propionate Nasal 50 MCG/SPRAY BOTTLE NS SCH (08:14)
--- NOTE | 2017-11-16 08:24 | Cardiology Progress Note ---
Date of Encounter: 11/16/17 Time of Encounter: 08:20 Assessment and Plan (1) Lung cancer Current Visit: No Status: Chronic Per cardiology: Known lung CA. Last seen by oncology September 2017. Management per primary service. Palliative care following. Recommend consult oncology for evaluation and recommendations regarding long-term prognosis-- will have impact on cardiology recommendations. Discussed with Ryann Mayers CNP. Qualifiers: Laterality: right Lung location: hilum of lung Qualified Code(s): C34.01 - Malignant neoplasm of right main bronchus (2) Acute exacerbation of chronic obstructive airways disease Current Visit: No Status: Acute Per cardiology: Admitted with COPD exacerbation. Rhino virus positive. Currently extubated, on BiPap. Management per pulmonary service. (3) Atrial flutter with rapid ventricular response Current Visit: Yes Status: Acute Per Cardiology: Currently afib 90's - 100's-- noted to have HR tachyardic with extubation, controlled HR while was on mechanical ventilation. Suspect pulmonary status driving tachycardia. Will be difficult to control HR given pulmonary issues. S/ p amio IV load, now on Amio 200mg PO BID, remains on amio gtt-- discussed with Dr. Grant, will continue for now, on Cardizem CD 240mg PO daily and Toprol XL 25mg PO daily. Discussed with Juanita Carrillo and Dr. Benítez, can consider possible RUBENS/DCCV, but lung cancer prognosis would be helpful. Suspect low-likelihood of conversion with maintaining SR. Would not recommend RUBENS/DCCV today since dependant on BiPap. Further recs pending family/multidisciplinary meeting today. On Coumadin for AC. INR 2.5. (4) Elevated troponin Current Visit: No Status: Acute Per Cardiology: Troponin 0.07, 0.05 in the setting of CKD, COPD. Has chronically elevated troponins. ECG with ST segment depression in lateral leads (unchanged from previous ECG when in a.flutter RVR). Known history of CAD with [facility] 2014: * Left Main Coronary Artery The LMCA is angiographically free of disease. * Left Anterior Descending There is a 70% stenosis in the Proximal LAD. The lesion has severely calcification noted. There is a 100% stenosis in the Mid LAD. The lesion has collaterals which feed from left to right and right to left * Circumflex There is a 100% stenosis in the Proximal Circumflex. Distribution supplied by collaterals from FLORES mid LAD and RCA. * Right Coronary Artery There is a 100% stenosis in the Proximal RCA. The lesion has mature collaterals which feed from right to right and right to left feeding the Circumflex. Additional Findings: Grafts * The left internal mammary graft to the Mid LAD is patent. Provides collateralls to OM1 * The saphenous vein graft to the Right PDA is occluded. * The saphenous vein graft to the 1st Marginal is occluded. CP free. Do not suspect NSTEMI, suspect demand ischemia related to above. On asa , statin, beta corina. Has Shellfish allergy. (5) Severe mitral regurgitation Current Visit: No Status: Chronic Per cardiology: Known severe MR per RUBENS 03/2017. Patient previously referred to [facility] outpatient for evaluation by Dr. Esteban 03/2017 for mitralclip per review of records. Of note, reports at [facility] one month ago. Denies any work up for valve at [facility]. Lung Cancer prognosis will be helpful in determining if potential mitral valve clipping/surgery would be clinically appropriate. (6) Cardiomyopathy Current Visit: No Status: Chronic Per cardiology: Known cardiomyopathy LVEF 45% on echo 08/2017. On beta corina. Had been on joelle inhibitor outpatient. Now held due to hypotension-- resume when/if able. Euvolemic on exam. Net I&O -2104ml. Chest x-ray with possible edema versus pneumonia. Patient is at his baseline weight. On hemodialysis. Strict I&Os, daily weights, continue HD per nephrology. Qualifiers: Cardiomyopathy type: unspecified Qualified Code(s): I42.9 - Cardiomyopathy , unspecified (7) ESRD (end stage renal disease) on dialysis Current Visit: No Status: Chronic Per Cardiology: Known ESRD on HD. Nephrology following. Discussion w patient/family: The assessment and plan as outlined above was discussed with the patient who expressed understanding and agreement. All questions were answered. Thank you for involving us in the care of your patient. Please call with any questions. Subjective Principal diagnosis: ESRD, lung CA, severe MR, a.flutter RVR Interval history: Patient denies any CP. Reports still having SOB and mild palps. Reports has not seen [facility] for eval for Mitral Valve repair/surgery. No available at bedside yet-- has pending meeting with palliative care at 1130. Objective Vital Signs, Last 4 Hours Temp Pulse Resp BP Pulse Ox 11/16/17 08:20 98.3 F 11/16/17 06:00 129 16 104/79 95 11/16/17 05:15 99.1 F 11/16/17 05:00 126 30 99/64 93 General: Conversant HEENT: Atraumatic, Normocephaly Cardiac: Other (Irregularly irregular, grade III/ murmur noted) Lungs: Other (Course scattered rhonchi throughout, respirations labored at rest , diminished breath sounds throughout, on BiPAP) Neuro: Alert and responsive, No focal deficits noted Abdomen: Soft, Non-Tender Skin: No rashes noted on visualized skin Musculoskeletal: No Chest Wall Tenderness Extremities: No Edema Results 11/16/17 04:20 11/16/17 04:20 Lab Results Laboratory Tests 11/16/17 11/16/17 11/16/17 04:20 04:20 04:20 WBC 10.8 Hgb 9.7 L Hct 30.9 L Plt Count 119 L INR 2.5 O2 Delivery Device Creatinine 4.64 H Est GFR (Non-Af Amer) 13 L 11/16/17 06:01 WBC Hgb Hct Plt Count INR O2 Delivery Device BiPAP Creatinine Est GFR (Non-Af Amer) Intake & Output 11/13/17 11/14/17 11/15/17 11/16/17 23:59 23:59 23:59 23:59 Intake Total 1595 / 1595 2094 / 2094 1400 / 1400 10 Output Total 417 / 417 2897 / 2897 3797 / 3797 Balance 1178 / 1178 -803 / -803 -2397 / -2397 0 / 0 Weight 64.3 kg 66.8 kg Active Medications Acetylcysteine (Acetylcysteine 20%) 600 mg PO BID LIDA Stop: 05/12/18 09:01 Last Admin: 11/16/17 08:00 Dose: 600 mg Albuterol Sulfate (Proventil Neb) 2.5 mg IH Q4HR PRN; Protocol PRN Reason: Wheezing Stop: 05/12/18 01:42 Amiodarone HCl (Cordarone) 200 mg PO BID LIDA Stop: 05/17/18 21:01 Last Admin: 11/16/17 08:00 Dose: 200 mg Aspirin (Aspirin) 81 mg PO DAILY LIDA Stop: 05/13/18 09:01 Last Admin: 11/16/17 08:01 Dose: 81 mg Atorvastatin Calcium (Lipitor) 40 mg PO HS [facility] Stop: 05/12/18 21:01 Last Admin: 11/15/17 20:08 Dose: 40 mg Budesonide/Formoterol Fumarate (Symbicort) 2 puff IH BIDR [facility] PRN Reason: Protocol Stop: 05/12/18 10:01 Last Admin: 11/15/17 22:32 Dose: 2 puff Calcium Acetate (Phos-Lo) 667 mg PO TIDWM [facility] Stop: 05/12/18 08:01 Last Admin: 11/16/17 08:00 Dose: 667 mg Dextrose/Water (Dextrose 50% (Syg)) 25 ml IVP AD PRN PRN Reason: Hypoglycemia Stop: 05/13/18 11:15 Diltiazem HCl (Cardizem Cd) 240 mg PO DAILY [facility] Stop: 05/12/18 01:45 Last Admin: 11/16/17 08:03 Dose: 240 mg Docusate Sodium (Colace) 100 mg PO DAILY [facility] PRN Reason: Protocol Stop: 05/12/18 09:01 Last Admin: 11/16/17 08:03 Dose: 100 mg Famotidine (Pepcid) 10 mg IVP Q12HR [facility] PRN Reason: Protocol Stop: 05/16/18 06:01 Last Admin: 11/16/17 05:58 Dose: 10 mg Fluticasone Propionate (Flonase) 50 mcg NS DAILY [facility] PRN Reason: Protocol Stop: 05/13/18 16:31 Last Admin: 11/16/17 08:14 Dose: 50 mcg Gabapentin (Neurontin) 100 mg PO BID [facility] Stop: 05/14/18 21:01 Last Admin: 11/16/17 08:01 Dose: 100 mg Glucagon (Glucagen) 1 mg IM ONCE PRN PRN Reason: Hypoglycemia Stop: 05/13/18 11:15 Glucose (Gluctose) 15 gm PO ONCE PRN PRN Reason: Hypoglycemia Stop: 05/13/18 11:15 Glucose (Gluctose) 30 gm PO ONCE PRN PRN Reason: Hypoglycemia Stop: 05/13/18 11:15 Guaifenesin (Mucinex) 600 mg PO BID [facility] Stop: 05/12/18 09:01 Last Admin: 11/16/17 08:01 Dose: 600 mg Dextrose (Dextrose 5%) 1,000 mls @ 100 mls/hr IVC .Q10H PRN PRN Reason: HYPOGLYCEMIA Stop: 05/13/18 11:15 Albumin Human (Flexbumin) 12.5 gm in 50 mls @ 60 mls/hr IVPB ONCE PRN PRN Reason: Hypotension Stop: 05/14/18 09:00 Norepinephrine Bitartrate 4 mg (/ Dextrose) 254 mls @ 19.05 mls/hr IVC CONT LIDA ; 5 MCG/MIN PRN Reason: Protocol Stop: 05/15/18 18:46 Last Admin: 11/15/17 20:06 Dose: Not Given Amiodarone HCl/Dextrose (Amiodarone Drip Premix 360mg/200ml) 360 mg in 200 mls @ 16.667 mls/hr IVC CONT LIDA PRN Reason: 0.5 MG/MIN Stop: 05/16/18 21:01 Last Admin: 11/15/17 22:15 Dose: 0.5 mg/min, 16.667 mls/hr Piperacillin Sod/Tazobactam Sod (Zosyn Premix 3.375 Gm/200 Ml) 3.375 gm in 200 mls @ 50 mls/hr IVPB Q12HR [facility] Stop: 05/16/18 18:01 Last Admin: 11/16/17 05:59 Dose: 50 mls/hr Sodium Chloride (0.9 % Sodium Chloride) 250 mls @ 937.5 mls/hr IVC .Q16M PRN PRN Reason: Hypotension Stop: 05/17/18 08:15 Sodium Chloride (0.9 % Sodium Chloride) 1,000 mls @ 0 mls/hr PRIME .Q0M LIDA PRN Reason: As Directed Stop: 05/17/18 08:16 Insulin Human Lispro (Humalog) 0 units SQ Q6HR LIDA PRN Reason: Protocol Stop: 05/16/18 00:01 Last Admin: 11/16/17 06:05 Dose: 2 units Levalbuterol HCl (Xopenex) 1.25 mg IH [id number] L[facility] Stop: 05/12/18 04:01 Last Admin: 11/16/17 03:52 Dose: 1.25 mg Megestrol Acetate (Megace) 800 mg PO DAILY [facility]IDA PRN Reason: Protocol Stop: 05/12/18 09:01 Last Admin: 11/16/17 07:59 Dose: 800 mg Methylprednisolone (Solu-Medrol) 40 mg IVP Q12HR LIDA Stop: 05/16/18 18:01 Last Admin: 11/16/17 05:58 Dose: 40 mg Metoprolol Succinate (Toprol Xl) 25 mg PO DAILY [facility] Stop: 05/16/18 09:01 Last Admin: 11/16/17 08:00 Dose: 25 mg Midodrine (Proamatine) 2.5 mg PO 0800,1200,1700 L[facility] Stop: 05/16/18 12:01 Last Admin: 11/16/17 08:01 Dose: 2.5 mg Naloxone HCl (Narcan) 0.4 mg IVP Q2MIN PRN PRN Reason: Opioid Reversal Stop: 05/12/18 00:47 Ondansetron HCl (Zofran) 4 mg IVP Q6HR PRN PRN Reason: Nausea And Vomiting Stop: 05/12/18 00:47 Oxycodone HCl (Roxicodone) 15 mg PO Q8HR PRN PRN Reason: Pain Stop: 05/12/18 01:42 Last Admin: 11/16/17 04:06 Dose: 15 mg Vancomycin HCl (Vancocin) 0 each IVPB RPHPROT PRN PRN Reason: PULSE DOSING Stop: 05/13/18 23:22 Vitamin B Complex/Vit C/Folic Acid (Renal Caps Softgel) 1 mg PO DAILY [facility] Stop: 05/15/18 09:01 Last Admin: 11/16/17 08:01 Dose: 1 mg Warfarin Sodium (Coumadin Perpt) 1 each PO DAILY@1800 PRN PRN Reason: SEE COMMENTS Stop: 05/12/18 08:01 - EKG Interpretation EKG results cardiology: other (Telemetry reviewed with average heart rate last 12 hours 100, currently A. fib in the 90s to 100s) - VTE Documentation of Mechanical Device: Graduated compression elastic hosiery Consult Discharge Plan - Plan Referrals: Jeromy Wall MD [Primary Care Provider] -
--- NOTE | 2017-11-16 09:11 | Nephrology Progress Note ---
Date of Encounter: 11/16/17 Time of Encounter: 08:45 - Assessment and Plan (1) ESRD (end stage renal disease) on dialysis Current Visit: No Status: Chronic HD recommended today to resume his schedule and to help with further UF which may help improve his respiratory status indirectly. With his lung Ca hx and frequent hospitalizations plus the sum of his other comorbidities, I counseled him about the options for palliation. Agree with Palliative Care consult. Discussed with the ICU team. (2) Hypertension Current Visit: Yes Status: Chronic CCC Qualifiers: Hypertension type: essential hypertension Qualified Code(s): I10 - Essential (primary) hypertension (3) Pneumonia Current Visit: No Status: Acute Appreciate the ICU team. Qualifiers: Pneumonia type: due to unspecified organism Laterality: right Lung location: upper lobe of lung Qualified Code(s): J18.1 - Lobar pneumonia, unspecified organism (4) Shortness of breath Current Visit: No Status: Acute See above (5) Anemia in CKD (chronic kidney disease) Current Visit: No Status: Chronic Goal Hgb is 10-11; IV iron and/or FREDIS as needed Qualifiers: Chronic kidney disease stage: on chronic dialysis Qualified Code(s): N18.6 - End stage renal disease; D63.1 - Anemia in chronic kidney disease; D63.1 - Anemia in chronic kidney disease; Z99.2 - Dependence on renal dialysis; Z99.2 - Dependence on renal dialysis; Z99.2 - Dependence on renal dialysis; Z99.2 - Dependence on renal dialysis (6) Atrial flutter Current Visit: No Status: Chronic Cardio following. Also has MR Qualifiers: Atrial flutter type: typical Qualified Code(s): I48.3 - Typical atrial flutter (7) Lung cancer Current Visit: No Status: Chronic Appreciate Oncology's input Qualifiers: Laterality: right Lung location: hilum of lung Qualified Code(s): C34.01 - Malignant neoplasm of right main bronchus Subjective Principal diagnosis: ESRD, lung CA, severe MR, a.flutter RVR Interval history: Pt was seen/examined this AM. He did not affirm N/V/D. He dialyzed yesterday per report. Objective - Vital Signs Vital signs: Vital Signs Temp Pulse Resp BP Pulse Ox 11/16/17 08:20 98.3 F 11/16/17 08:00 129 24 110/84 100 18 07:00 129 22 108/71 97 18 06:00 129 16 104/79 95 18 05:15 99.1 F 18 05:00 126 30 99/64 93 18 04:00 129 24 112/75 98 18 03:52 22 112/73 98 11/16/17 03:00 128 24 131/88 97 18 02:00 129 27 117/79 99 18 01:00 125 26 108/79 95 11/16/17 00:00 99.4 F 121 22 105/77 97 11/15/17 23:00 117 26 102/78 98 11/15/17 22:32 24 141/78 97 18 22:00 121 24 120/77 96 11/15/17 21:00 120 28 122/78 94 11/15/18 20:43 98.2 F 11/15/17 20:00 118 28 129/71 93 11/15/17 19:00 120 24 106/84 96 18 18:30 130 24 119/77 96 18 17:30 130 23 133/80 94 18 17:25 97.8 F 14 133/80 18 17:15 125/81 18 17:00 110/89 18 16:45 124/89 11/15/18 16:30 131 24 115/80 98 18 16:15 121/82 18 16:00 131/91 18 15:57 23 98 18/18 15:47 97.8 F 18 15:45 112/79 18/18 15:30 115 23 106/85 97 1818 15:15 131/76 18 15:00 128/92 18 14:45 121/90 1818 14:30 122 22 117/88 98 18 14:15 136/89 18 14:00 127/95 18 13:45 108/86 18 13:30 118 21 100/86 94 11/15/17 13:15 98.2 F 16 120/86 11/15/17 12:30 112 22 114/63 95 11/15/17 12:17 97.2 F L 11/15/17 11:30 113 23 111/69 95 11/15/17 10:30 113 22 139/72 94 11/15/17 09:53 24 95 11/15/17 09:30 115 23 141/84 97 Intake and Output 11/15/17 11/16/17 11/16/17 23:59 07:59 15:59 Intake Total 400 / 400 Output Total 3625 / 3625 Balance -3225 / -3225 0 / 0 Intake: IV Fluids 400 / 400 Amiodarone Drip Premix 360mg/ 200 / 200 200mL 360 mg In 200 ml @ 0.5 MG /MIN 16.667 mls/hr IVC CONT LIDA Rx#:[id number] Zosyn Premix 3.375 GM/200 ML 3. 200 / 200 375 gm In 200 ml @ 50 mls/hr IVPB Q12HR L[facility] Rx#:[id number] Oral Output: Urine 0 / 0 Total Dialysis (HD) Output 3600 / 3600 Catheter 25 Other: Blood Glucose* 148 178 150 Hemodialysis Net Fluid Removed 3000 (mL) - General Appearance General appearance: Present: cachectic, chronically ill, fatigue, frail EENT: Present: ATNC, PERRL, mucous membranes moist Neck: Present: supple Respiratory: Present: wheezing, course breath sounds, rhonchi Cardiology: Present: holosystolic murmur, no edema, irregular rhythm, normal S1 , normal S2 Dialysis Vascular Access: Arteriovenous Fistula thrill: Yes bruit: Yes Gastrointestinal: Present: normoactive bowel sounds, no tenderness, no guarding Integumentary: Present: warm and dry, ecchymotic Neurologic: Present: no focal deficit, no asterixis, alert and oriented x3 Musculoskeletal: Present: no erythema, no cyanosis, no clubbing Psychiatric: Present: mood/affect appropriate, cooperative - Lab 11/16/17 04:20 11/16/17 04:20 Most recent lab results ABG pH 7.43 pH Units (7.32-7.45) 11/16/17 06:01 ABG pCO2 37 mmHg (35-45) 11/16/17 06:01 ABG pO2 73 mmHg (85-104) L 11/16/17 06:01 ABG HCO3 25 mEq/L (21-27) 11/16/17 06:01 ABG O2 Saturation 95 % (95-98) 11/16/17 06:01 Calcium 9.3 mg/dL (8.6-10.3) 11/16/17 04:20 Phosphorus 9.7 mg/dL (2.7-4.5) H 11/14/17 03:42 Magnesium 2.2 mg/dL (1.6-2.6) 11/11/17 18:27 - VTE Documentation of Mechanical Device: Graduated compression elastic hosiery Consult Discharge Plan - Plan Referrals: Jeromy Wall MD [Primary Care Provider] -
[2017-11-16] MEDS ORDERED: 0.9 % Sodium Chloride 250 ML IVC PRN (10:06)
[2017-11-16] MEDS: Amiodarone Premix 360 MG/200 ML BAG IVC SCH ×2 (10:15→21:00)
[2017-11-16] MEDS: Budesonide/Formoterol 160/4.5 MDI IH SCH ×2 (11:26→21:45)
--- NOTE | 2017-11-16 12:31 | Event Note ---
Date of Encounter: 11/16/17 Time of Encounter: 12:00 - Cardiology Event Note Lengthy meeting had with patient, , [id number] regarding plan of care with staff development coordinator, Dr. Grant, Ryann Mayers CNP and myself. reports seen at [facility] and told by cardiology not deemed a candidate for mitral valve clipping. Will attempt to obtain medical records for evaluation. Oncology consult pending for long-term recommendations on prognosis for lung cancer. Patient and currently desire to remain full code. Discussed with Dr. Westfall as well.
--- NOTE | 2017-11-16 13:21 | Palliative Progress Note ---
Date of Encounter: 11/16/17 Time of Encounter: 12:20 - Assessment and plan (1) Dyspnea Current Visit: Yes Status: Acute Assessment and plan: Remains bipap dependent. Monitor Qualifiers: Dyspnea type: unspecified Qualified Code(s): R06.00 - Dyspnea, unspecified (2) Counseling regarding advanced care planning and goals of care Current Visit: Yes Status: Acute Assessment and plan: Meeting with Chip Leon, RADIO TECHNICIAN., Dr. Grant, myself and pt primary nurse re: goals of care. Cardiology discussing complicating clinical picture. Patient was apparently told from [place] he was not a candidate for valve clipping. Cardiology requesting oncology input r/t prognosis - spoke with Cari Bishop, who contacted Dr. Calero, who will be seeing patient. After initial meeting, Dr. Gautam attended as well and discussed poor overall prognosis. Pt/ still desire to continue aggressive care and desire everything done. Will continue to follow. (3) Acute exacerbation of chronic obstructive airways disease Current Visit: No Status: Acute (4) Systolic heart failure secondary to coronary artery disease Current Visit: No Status: Chronic (5) ESRD (end stage renal disease) on dialysis Current Visit: No Status: Chronic - Time Spent With Patient Total time spent is greater than 50% in coordination of care (as documented) at patient's floor/unit and/or counseling patient: 25 - 35 minutes - Subjective Interval history: Patient continues to require bipap support and cannot tolerate being off of this for more than a few minutes. Unable to take in po r/t bipap. Denies pain/ discomfort. Awaiting family to arrive for meeting. - Constitutional Vitals: Abnormal lab results RBC 3.27 M/mcL (4.19-5.50) L 11/16/17 04:20 Hgb 9.7 g/dL (12.9-16.9) L 11/16/17 04:20 Hct 30.9 % (37.5-50.1) L 11/16/17 04:20 MCHC 31.4 g/dL (31.6-35.5) L 11/16/17 04:20 RDW 18.9 % (11.5-14.5) H 11/16/17 04:20 Plt Count 119 K/mcL (140-400) L 11/16/17 04:20 Neutrophils # 10.2 K/mcL (1.6-8.9) H 11/16/17 04:20 Lymphocytes # 0.1 K/mcL (0.6-4.6) L 11/16/17 04:20 Nucleated RBCs/100 WBC 0.4 /100 WBC (0) H 11/15/17 03:40 Platelet Estimate Slight Decrease (Normal) L 11/16/17 04:20 Large Platelets Present (Not Present) A 11/16/17 04:20 Hypochromasia Present (Not Present) A 11/16/17 04:20 Poikilocytosis 1+ (Not Present) A 11/16/17 04:20 Anisocytosis 1+ (Not Present) A 11/16/17 04:20 Microcytosis Present (Not Present) A 11/16/17 04:20 Macrocytosis Present (Not Present) A 11/16/17 04:20 Target Cells 1+ (Not Present) A 11/16/17 04:20 Ovalocytes 1+ (Not Present) A 11/16/17 04:20 Acanthocytes (Spur) 2+ (Not Present) A 11/16/17 04:20 PT 28.0 Seconds (9.4-12.1) H 11/16/17 04:20 ABG pO2 73 mmHg (85-104) L 11/16/17 06:01 Chloride 94 mEq/L (98-107) L 11/16/17 04:20 BUN 62 mg/dL (6-20) H 11/16/17 04:20 Creatinine 4.64 mg/dL (0.70-1.30) H 11/16/17 04:20 Est GFR ( Amer) 16 (> 60) L 11/16/17 04:20 Est GFR (Non-Af Amer) 13 (> 60) L 11/16/17 04:20 Glucose 161 mg/dL (70-105) H 11/16/17 04:20 POC Glucose 180 (58-89) H 11/15/17 23:15 Calculated Osmolality 303 (280-300) H 11/16/17 04:20 Phosphorus 9.7 mg/dL (2.7-4.5) H 11/14/17 03:42 Iron 27 mcg/dL (65-175) L 11/14/17 03:42 % Saturation 15 % (20-55) L 11/14/17 03:42 Transferrin 127 mg/dL (203-362) L 11/14/17 03:42 Ferritin > 1350 ng/ml (20-250) H 11/14/17 03:42 Alkaline Phosphatase 138 Units/L (34-104) H 11/12/17 12:43 Troponin I 0.11 ng/mL (< 0.04) H* 11/15/17 03:40 B-Natriuretic Peptide 2051 pg/mL (Less than 100) H 11/15/17 03:40 Albumin 3.1 g/dL (3.5-5.7) L 11/14/17 03:42 25-OH Vitamin D Total 28 ng/mL (30-80) L 11/14/17 03:42 Folate 26.0 ng/mL (3.0-16.0) H 11/14/17 03:42 Hep Bs Antigen Reactive (Nonreactive) H 11/10/17 09:35 Entero/Rhino (PCR) DETECTED (Not Detect) A 11/10/17 04:30 General appearance: Present: mild distress - Respiratory Additional comments: Coarse rhonchi throughout all lung hirsch. - Cardiovascular Cardiovascular exam: Present: tachycardia - GI/Abdominal GI/Abdominal exam: Present: distended, soft - Extremities Exam Extremities exam: Present: normal capillary refill, normal inspection - Neurological Exam Neurological exam: Present: alert, oriented X3, strengths equal and symetr throughout - Skin Skin exam: Present: dry, pallor, warm Palliative Quality Palliative Quality: Screen for Code Status: Yes, Screen for Goals of Care: Yes, Screen for Pain: Yes, If Pain Regimen Started, Initiate Bowel Regimen: Yes, Screen for Nausea/Vomitting: Yes - Labs CBC & Chem 7: 11/16/17 04:20 11/16/17 04:20 Labs: Laboratory Results - last 24 hr 11/15/17 11/15/17 11/15/17 05:12 11:01 15:05 WBC RBC Hgb Hct MCV MCH MCHC RDW Plt Count MPV Immature Gran % Seg Neutrophils % Lymphocytes % Monocytes % Eosinophils % Basophils % Neutrophils # Lymphocytes # Monocytes # Eosinophils # Basophils # Platelet Estimate Large Platelets Hypochromasia Poikilocytosis Anisocytosis Microcytosis Macrocytosis Target Cells Ovalocytes Acanthocytes (Spur) PT INR ABG pH ABG pCO2 ABG pO2 ABG HCO3 ABG Total CO2 ABG O2 Saturation ABG Base Excess Respiration Rate O2 Delivery Device Inspired O2 Sodium Potassium Chloride Carbon Dioxide BUN Creatinine Est GFR ( Amer) Est GFR (Non-Af Amer) BUN/Creatinine Ratio Glucose POC Glucose 197 H 148 H 116 H Calculated Osmolality Calcium Vancomycin Trough 11/15/17 11/15/17 11/16/17 20:05 23:15 04:20 WBC RBC Hgb Hct MCV MCH MCHC RDW Plt Count MPV Immature Gran % Seg Neutrophils % Lymphocytes % Monocytes % Eosinophils % Basophils % Neutrophils # Lymphocytes # Monocytes # Eosinophils # Basophils # Platelet Estimate Large Platelets Hypochromasia Poikilocytosis Anisocytosis Microcytosis Macrocytosis Target Cells Ovalocytes Acanthocytes (Spur) PT 28.0 H INR 2.5 ABG pH ABG pCO2 ABG pO2 ABG HCO3 ABG Total CO2 ABG O2 Saturation ABG Base Excess Respiration Rate O2 Delivery Device Inspired O2 Sodium Potassium Chloride Carbon Dioxide BUN Creatinine Est GFR ( Amer) Est GFR (Non-Af Amer) BUN/Creatinine Ratio Glucose POC Glucose 148 H 180 H Calculated Osmolality Calcium Vancomycin Trough 11/16/17 11/16/17 11/16/17 04:20 04:20 04:20 WBC 10.8 RBC 3.27 L Hgb 9.7 L Hct 30.9 L MCV 94.5 MCH 29.7 MCHC 31.4 L RDW 18.9 H Plt Count 119 L MPV 11.4 Immature Gran % 0.4 Seg Neutrophils % 94.3 Lymphocytes % 1.2 Monocytes % 4.0 Eosinophils % 0.0 Basophils % 0.1 Neutrophils # 10.2 H Lymphocytes # 0.1 L Monocytes # 0.4 Eosinophils # 0.0 Basophils # 0.0 Platelet Estimate Slight Decrease L Large Platelets Present A Hypochromasia Present A Poikilocytosis 1+ A Anisocytosis 1+ A Microcytosis Present A Macrocytosis Present A Target Cells 1+ A Ovalocytes 1+ A Acanthocytes (Spur) 2+ A PT INR ABG pH ABG pCO2 ABG pO2 ABG HCO3 ABG Total CO2 ABG O2 Saturation ABG Base Excess Respiration Rate O2 Delivery Device Inspired O2 Sodium 136 Potassium 4.2 Chloride 94 L Carbon Dioxide 25 BUN 62 H Creatinine 4.64 H Est GFR ( Amer) 16 L Est GFR (Non-Af Amer) 13 L BUN/Creatinine Ratio 13 Glucose 161 H POC Glucose Calculated Osmolality 303 H Calcium 9.3 Vancomycin Trough 17.0 11/16/17 06:01 WBC RBC Hgb Hct MCV MCH MCHC RDW Plt Count MPV Immature Gran % Seg Neutrophils % Lymphocytes % Monocytes % Eosinophils % Basophils % Neutrophils # Lymphocytes # Monocytes # Eosinophils # Basophils # Platelet Estimate Large Platelets Hypochromasia Poikilocytosis Anisocytosis Microcytosis Macrocytosis Target Cells Ovalocytes Acanthocytes (Spur) PT INR ABG pH 7.43 ABG pCO2 37 ABG pO2 73 L ABG HCO3 25 ABG Total CO2 26 ABG O2 Saturation 95 ABG Base Excess 1 Respiration Rate 12 O2 Delivery Device BiPAP Inspired O2 30.0 Sodium Potassium Chloride Carbon Dioxide BUN Creatinine Est GFR ( Amer) Est GFR (Non-Af Amer) BUN/Creatinine Ratio Glucose POC Glucose Calculated Osmolality Calcium Vancomycin Trough - ABG Interpretation ABG results: ABG ABG pH 7.43 pH Units (7.32-7.45) 11/16/17 06:01 ABG pCO2 37 mmHg (35-45) 11/16/17 06:01 ABG pO2 73 mmHg (85-104) L 11/16/17 06:01 ABG O2 Saturation 95 % (95-98) 11/16/17 06:01 PT/INR, D-dimer PT 28.0 Seconds (9.4-12.1) H 11/16/17 04:20 Consult Discharge Plan - Plan Referrals: Jeromy Wall MD [Primary Care Provider] -
[2017-11-16] MEDS ORDERED: Albumin 25% 25gram/100mL 25 GM/100 ML IV.SOLN IVPB ONE (14:46)
[2017-11-16] MEDS ORDERED: 0.9 % Sodium Chloride 1,000 ML ONE (16:00)
--- NOTE | 2017-11-16 16:39 | Oncology Inp Consult Note ---
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 fib and flutter tachycardia rate uncontrolled and respiratory insufficiency needing BiPAP. Patient will need valvular procedure for rate control, oncology is consulted to give an estimated on his prognosis. With regards to his lung cancer treatment patient had received a suboptimal treatment due to his kidney disease, (single agent treatment with Taxol with radiation therapy without barrow), therefore for his stage of disease, expected long-term outcome could be somewhere around 20% or so with median survival of around 25 months or so. Considering patient's co-morbidities these estimates change and may be considerably less. From imaging standpoint his disease status appears to be stable and not progressive. However we can pursue with w/u including CT abd and brain imaging to be upto date with staging once he is relatively stable. Risks of further treatment if there is progression of cancer will outweigh benefits due to his general condition and will not be recommended in the future. All of the above were discussed bedside with patient, family and palliative care encouraged.. - Data of Consult Requesting Physician: Dennis Hamilton MD Primary Care Provider: Jeromy Wall MD - Consult Narrative Reason for consult: lung cancer, discuss prognosis History of present illness: Mr. Guardado is a 61 year old male with hx ESRD on dialysis, CHF, CAD, GERD, hyperlipidemia, hypertension, COPD, hx lung cancer diagnosis when he was hospitalized 11/14 with cough/pneumonia. A CT chest 11/02/16 shows increased consolidation rt lung mass/pneumonia. Bronchoscopy-- on 10/31/16--showed a completely obstructing fungating friable lesion in the right upper lobe bronchus which was biopsied final path consistent with squamous cell carcinoma of the lung. He underwent bronch debulking of endobronchial lesions, cryotherapy 12/15 for hemoptysis Started RT and wk 1 taxol (12/18/16) to control symptoms and as definitive Rx [facility] held due to CKD/dialysis. Consolidation Taxol in February 2017. Imaging in March 2017 showed increase size and density of perihilar consolidation in the right upper lobe, worsening reticular groundglass opacification in the right upper lobe postobstructive pneumonitis / inflammation changes. Resolution of intermittent changes in the lingula. She had undergone repeat bronchoscopy procedure and pathology in March 2017 did not show any malignant cells. Reimaging studies shown-increased right perihilar density confluent with increased density and architectural distortion in the posterior right upper lobe likely post radiation changes, Ct wo contrast. No mediastinal adenopathy--11/11/17 He has severe MR, cardiomyopathy, A fib RVR, dependant on BiPap, COPD exacerbation and rhinoviral infection. Procedural intervention for MR sought by cardiology for controlling heart rate, and requestd status on his lumng cancer traetment and senior living prognosis. Past Med Surg Social Fam HX - Past Medical History Medical history: arthritis, cancer, CHF, coronary artery disease, diabetes, dialysis, GERD, hyperlipidemia, hypertension, myocardial infarction, peripheral artery disease, renal disease, other Psychiatric history: anxiety, depression - Past Surgical History Surgical History: angioplasty/stent, carotid endarterectomy, coronary bypass ( CABG), orthopedic, other, other - Social History Smoking Status: Former smoker Smokeless Tobacco Status: No (does not smoke) Alcohol use: none Drug use: none - Family History Brother Adopted: No Family Member Ethnicity: Non- Living Status: Hx Family Cardiac Disorders: Yes Hx Family Respiratory Disorders: Yes (dad black lung) Hx Family Cancer: Yes (mother) Hx Family GI Disorders: No Hx Family Endocrine Disorder: Yes (sister) Hx Family Neuromuscular Disorders: No Hx Family Neurologic Disorders: No Hx Family HEENT Disorders: No Hx Family Autoimmune Disorders: No Sister Family Member Ethnicity: Non- Living Status: Still Living Hx Family Cardiac Disorders: Yes (HD) Hx Family Respiratory Disorders: Yes (COPD) Hx Family Endocrine Disorder: Yes (Thyroid disease) Mother Adopted: No Family Member Ethnicity: Non- Living Status: Hx Family Cardiac Disorders: No Hx Family Respiratory Disorders: No Hx Family Cancer: Yes (bone) Hx Family GI Disorders: No Hx Family Endocrine Disorder: No Hx Family Neuromuscular Disorders: No Hx Family Neurologic Disorders: No Hx Family HEENT Disorders: No Hx Family Autoimmune Disorders: No Father Adopted: No Family Member Ethnicity: Non- Living Status: Age at : 70 Hx Family Cardiac Disorders: No Hx Family Respiratory Disorders: Yes Hx Family Cancer: No Hx Family GI Disorders: No Hx Family Endocrine Disorder: No Hx Family Neuromuscular Disorders: No Hx Family Neurologic Disorders: No Hx Family HEENT Disorders: No Hx Family Autoimmune Disorders: No Medications and Allergies Famotidine [Pepcid] 10 mg PO BID #60 tablet 07/03/15 [Rx] Albuterol Sulfate [Albuterol Inhaler] 2 puff IH Q4HR 07/29/15 [History] Budesonide/Formoterol 160/4.5 [Symbicort] 2 puff IH BIDR 07/29/15 [History] Gabapentin [Neurontin] 100 mg PO TID 07/29/15 [History] Calcium Acetate [Phos-LO] 667 mg PO TIDWM #90 capsule 10/02/15 [Rx] Furosemide [Lasix] 40 mg PO DAILY 08/31/16 [History] Oxygen 2.5 l NS AD 08/31/16 [History] Albuterol Neb [Proventil Neb] 2.5 mg IH Q4HR PRN #30 vial.neb 09/03/16 [Rx] Multivitamin [Multivitamins] 1 cap PO DAILY 11/03/16 [History] Magic Mouthwash [Magic Mouthwash BLM] 10 ml PO QID PRN #240 ml 12/18/16 [Rx] Docusate [Colace] 100 mg PO DAILY #20 capsule 03/02/17 [Rx] Megestrol Acetate [Megace] 800 mg PO DAILY #400 mls 04/12/17 [Rx] Acetylcysteine 20% 600 mg PO BID #60 syringe 09/07/17 [Rx] Atorvastatin [Lipitor] 40 mg PO HS #30 tablet 09/07/17 [Rx] Levalbuterol Neb [Xopenex Neb] 1.25 mg IH Q6H PRN #60 vial.neb 09/07/17 [Rx] Lidocaine/Prilocaine CREAM [Emla] 1 gm TP DAILY PRN tube 09/07/17 [Rx] Ondansetron [Zofran ODT] 8 mg SL Q4HR PRN #60 tab.rapdis 09/07/17 [Rx] OxyCODONE Immed Rel [Roxicodone 15 MG] 15 mg PO Q8HR PRN #90 tablet 09/24/17 [Rx ] Carvedilol [Coreg] 25 mg PO BID 11/10/17 [History] Diltiazem CD (24hr) [Cardizem CD] 240 mg PO DAILY 11/10/17 [History] Guaifenesin [Mucinex] 600 mg PO BID 11/10/17 [History] Warfarin [Coumadin] 1 - 2 tab PO DAILY 11/12/17 [History] 3 Allergy/AdvReac Type Severity Reaction Status Date / Time pollen extracts Allergy Itching Verified 11/12/17 11:02 shellfish derived AdvReac Nausea Verified 11/12/17 11:02 IVP DYE Allergy Intermediate Vomiting Uncoded 11/12/17 11:02 Review of systems: Patient is significantly SOB and in discomfort. Rest of ROS per family Oncology - Exam - Constitutional Vitals: Temp Pulse Resp BP Pulse Ox 98.3 F 110 20 107/90 95 11/16/17 15:25 11/16/17 15:00 11/16/17 15:25 11/16/17 16:25 11/16/17 15:00 General appearance: severe distress, thin - Head Head exam: Present: atraumatic, normal inspection - Eye Eye exam: Present: sclera anicteric - ENT ENT exam: Present: mucous membranes moist - Neck Neck exam: Present: full ROM, normal inspection - Respiratory Respiratory exam: Present: CTAB - Cardiovascular Cardiovascular exam: Present: irregular rhythm, +S1, +S2, tachycardia - GI/Abdominal GI/Abdominal exam: Present: normal bowel sounds, soft - Extremities Exam Extremities exam: Present: full ROM, normal inspection - Back Exam Back exam: Present: normal inspection - Neurological Exam Neurological exam: Present: alert, CN II-XII intact - Psychiatric Psychiatric exam: Present: agitated - Skin Skin exam: Present: dry Oncology - Results Labs: Short CBC 11/16/17 Range/Units 04:20 WBC 10.8 (4.3-11.1) K/mcL Hgb 9.7 L (12.9-16.9) g/dL Hct 30.9 L (37.5-50.1) % Plt Count 119 L (140-400) K/mcL Neutrophils # 10.2 H (1.6-8.9) K/mcL BMP 11/16/17 04:20 Sodium 136 Potassium 4.2 Chloride 94 L Carbon Dioxide 25 BUN 62 H Creatinine 4.64 H Glucose 161 H Calcium 9.3 Consult Discharge Plan - Plan Referrals: Jeromy Wall MD [Primary Care Provider] -
--- NOTE | 2017-11-16 17:39 | Event Note ---
Date of Encounter: 11/16/17 Time of Encounter: 17:45 - Cardiology Event Note Medical records received from [facility] from August 2017. RUBENS performed and did show severe MR. No records noted regarding cardiology or CT surgery recommendations regarding valve. No family at bedside presently. Now on HD. We' ll continue to follow.
[2017-11-16] MEDS ORDERED: Vancomycin 500 MG in D5% in Water (Mini-Bag+) 100 ML IVPB ONE (18:00)
[2017-11-16] MEDS ORDERED: *HR* Warfarin 2 MG TABLET PO ONE (18:00)
[2017-11-16] MEDS ORDERED: Vancomycin 500 MG in 0.9 % Sodium Chloride Mini Bag 100 ML IVPB ONE (19:00)
[2017-11-16] MEDS: Norepinephrine 4 MG in D5% in Water 250 ML IVC SCH (20:08)
[2017-11-17] MEDS: *HR* OxyCODONE Immed Rel 15 MG TABLET PO PRN ×3 (00:30→18:31)
[2017-11-17] MEDS: Insulin LISPRO 300 UNITS/3 ML VIAL SQ SCH ×5 (00:31→23:31)
[2017-11-17] MEDS: Levalbuterol Neb 1.25 MG/3 ML IH SCH ×4 (04:08→22:22)
[2017-11-17 05:31] LABS: Hemoglobin 8.9 g/dL (12.9-16.9); Immature Granulocytes % 0.3 % (0-4); Lymphocytes # 0.2 K/mcL (0.6-4.6); Lymphocytes % 1.9 %; Mean Corpuscular HGB Conc 30.7 g/dL (31.6-35.5); Mean Corpuscular Hemoglobin 29.6 pg (28.0-33.3); Mean Corpuscular Volume 96.3 fL (83.0-100.0); Mean Platelet Volume 11.5 fL (9.4-12.4); Monocytes # 0.3 K/mcL (0.0-1.3); Monocytes % 2.9 %; Neutrophils # 9.7 K/mcL (1.6-8.9); Platelet Count 115 K/mcL (140-400); Red Blood Count 3.01 M/mcL (4.19-5.50); Segmented Neutrophils % 94.9 %
[2017-11-17 05:36] LABS: INR 2.5; Prothrombin Time 27.7 Seconds (9.4-12.1)
[2017-11-17 05:48] LABS: Calcium 9.2 mg/dL (8.6-10.3); Potassium 4.3 mEq/L (3.5-5.1)
[2017-11-17 05:57] LABS: Anisocytosis 1+ (Not Present); Hypochromasia Present (Not Present); Microcytosis Present (Not Present); Ovalocytes 1+ (Not Present); Platelet Estimate Slight Decrease (Normal); Tear Drop Cells 1+ (Not Present)
[2017-11-17 05:58] LABS: Target Cells 1+ (Not Present)
[2017-11-17 05:59] LABS: Poikilocytosis 1+ (Not Present)
[2017-11-17] MEDS: Famotidine 20 MG/2 ML VIAL IVP SCH ×2 (06:10→18:31)
[2017-11-17] MEDS: MethylPREDNISolone 40 MG/ML VIAL IVP SCH ×2 (06:11→18:32)
[2017-11-17] MEDS: Piperacillin/Tazobactam 3.375 GM/200 ML BAG IVPB SCH ×2 (06:12→18:32)
--- NOTE | 2017-11-17 07:41 | Palliative Progress Note ---
Date of Encounter: 11/17/17 Time of Encounter: 07:10 - Assessment and plan (1) Acute exacerbation of chronic obstructive airways disease Current Visit: No Status: Acute Assessment and plan: Remains BiPAP dependent, however he is tolerating it well this morning. (2) Goals of care, counseling/discussion Current Visit: Yes Status: Acute Assessment and plan: Full code, still desiring aggressive care including dialysis. (3) Dyspnea Current Visit: Yes Status: Acute Assessment and plan: Tolerating BiPAP well at this time Qualifiers: Dyspnea type: unspecified Qualified Code(s): R06.00 - Dyspnea, unspecified (4) ESRD (end stage renal disease) on dialysis Current Visit: No Status: Chronic Assessment and plan: Continues on dialysis. Dialysis yesterday unknown if any more dialysis today or not. (5) History of lung cancer Current Visit: No Status: Chronic Assessment and plan: Followed by oncology. Overall prognosis is poor. This is primarily due to the underlying lung disease as well as disease and kidney disease. - Time Spent With Patient Total time spent is greater than 50% in coordination of care (as documented) at patient's floor/unit and/or counseling patient: - Subjective Interval history: On BiPAP, sitting on edge of bed tolerating BiPAP very well. No complaints of this morning, states she did have pain earlier was given medication that has been very effective. He does not know if he will get additional fluid removed today via dialysis or not. - Constitutional Vitals: Abnormal lab results RBC 3.01 M/mcL (4.19-5.50) L 11/17/17 05:20 Hgb 8.9 g/dL (12.9-16.9) L 11/17/17 05:20 Hct 29.0 % (37.5-50.1) L 11/17/17 05:20 MCHC 30.7 g/dL (31.6-35.5) L 11/17/17 05:20 RDW 19.0 % (11.5-14.5) H 11/17/17 05:20 Plt Count 115 K/mcL (140-400) L 11/17/17 05:20 Neutrophils # 9.7 K/mcL (1.6-8.9) H 11/17/17 05:20 Lymphocytes # 0.2 K/mcL (0.6-4.6) L 11/17/17 05:20 Nucleated RBCs/100 WBC 0.4 /100 WBC (0) H 11/15/17 03:40 Platelet Estimate Slight Decrease (Normal) L 11/17/17 05:20 Large Platelets Present (Not Present) A 11/16/17 04:20 Hypochromasia Present (Not Present) A 11/17/17 05:20 Poikilocytosis 1+ (Not Present) A 11/17/17 05:20 Anisocytosis 1+ (Not Present) A 11/17/17 05:20 Microcytosis Present (Not Present) A 11/17/17 05:20 Macrocytosis Present (Not Present) A 11/16/17 04:20 Target Cells 1+ (Not Present) A 11/17/17 05:20 Tear Drop Cells 1+ (Not Present) A 11/17/17 05:20 Ovalocytes 1+ (Not Present) A 11/17/17 05:20 Acanthocytes (Spur) 2+ (Not Present) A 11/16/17 04:20 PT 27.7 Seconds (9.4-12.1) H 11/17/17 05:20 ABG pO2 73 mmHg (85-104) L 11/16/17 06:01 Chloride 96 mEq/L (98-107) L 11/17/17 05:20 BUN 47 mg/dL (6-20) H 11/17/17 05:20 Creatinine 3.60 mg/dL (0.70-1.30) H 11/17/17 05:20 Est GFR ( Amer) 21 (> 60) L 11/17/17 05:20 Est GFR (Non-Af Amer) 17 (> 60) L 11/17/17 05:20 POC Glucose 197 (58-89) H 11/16/17 23:56 Phosphorus 9.7 mg/dL (2.7-4.5) H 11/14/17 03:42 Iron 27 mcg/dL (65-175) L 11/14/17 03:42 % Saturation 15 % (20-55) L 11/14/17 03:42 Transferrin 127 mg/dL (203-362) L 11/14/17 03:42 Ferritin > 1350 ng/ml (20-250) H 11/14/17 03:42 Alkaline Phosphatase 138 Units/L (34-104) H 11/12/17 12:43 Troponin I 0.20 ng/mL (< 0.04) H* 11/17/17 02:30 B-Natriuretic Peptide 2051 pg/mL (Less than 100) H 11/15/17 03:40 Albumin 3.1 g/dL (3.5-5.7) L 11/14/17 03:42 25-OH Vitamin D Total 28 ng/mL (30-80) L 11/14/17 03:42 Folate 26.0 ng/mL (3.0-16.0) H 11/14/17 03:42 Hep Bs Antigen Reactive (Nonreactive) H 11/10/17 09:35 Entero/Rhino (PCR) DETECTED (Not Detect) A 11/10/17 04:30 General appearance: Present: no acute distress - Head Head exam: Present: atraumatic, normal inspection - Eye Eye exam: Present: normal appearance - Neck Neck exam: Present: normal inspection - Respiratory Respiratory exam: Present: decreased breath sounds - Cardiovascular Cardiovascular exam: Present: tachycardia - GI/Abdominal GI/Abdominal exam: Present: normal bowel sounds, soft. Absent: tenderness - Extremities Exam Extremities exam: Absent: tenderness - Neurological Exam Neurological exam: Present: alert - Psychiatric Psychiatric exam: Absent: agitated, anxious - Skin Skin exam: Present: dry, warm Palliative Quality Palliative Quality: Screen for Code Status: Yes, Screen for Goals of Care: Yes, Screen for Pain: Yes, If Pain Regimen Started, Initiate Bowel Regimen: Yes, Screen for Nausea/Vomitting: Yes - Labs CBC & Chem 7: 11/17/17 05:20 11/17/17 05:20 Labs: Laboratory Results - last 24 hr 11/16/17 11/16/17 11/16/17 05:49 07:19 12:22 WBC RBC Hgb Hct MCV MCH MCHC RDW Plt Count MPV Immature Gran % Seg Neutrophils % Lymphocytes % Monocytes % Eosinophils % Basophils % Neutrophils # Lymphocytes # Monocytes # Eosinophils # Basophils # Platelet Estimate Hypochromasia Poikilocytosis Anisocytosis Microcytosis Target Cells Tear Drop Cells Ovalocytes PT INR Sodium Potassium Chloride Carbon Dioxide BUN Creatinine Est GFR ( Amer) Est GFR (Non-Af Amer) BUN/Creatinine Ratio Glucose POC Glucose 178 H 150 H 125 H Calculated Osmolality Calcium Troponin I 11/16/17 11/16/17 11/16/17 18:57 19:00 23:56 WBC RBC Hgb Hct MCV MCH MCHC RDW Plt Count MPV Immature Gran % Seg Neutrophils % Lymphocytes % Monocytes % Eosinophils % Basophils % Neutrophils # Lymphocytes # Monocytes # Eosinophils # Basophils # Platelet Estimate Hypochromasia Poikilocytosis Anisocytosis Microcytosis Target Cells Tear Drop Cells Ovalocytes PT INR Sodium Potassium Chloride Carbon Dioxide BUN Creatinine Est GFR ( Amer) Est GFR (Non-Af Amer) BUN/Creatinine Ratio Glucose POC Glucose 112 H 197 H Calculated Osmolality Calcium Troponin I 0.22 H* 11/17/17 11/17/17 11/17/17 02:30 05:20 05:20 WBC 10.2 RBC 3.01 L Hgb 8.9 L Hct 29.0 L MCV 96.3 MCH 29.6 MCHC 30.7 L RDW 19.0 H Plt Count 115 L MPV 11.5 Immature Gran % 0.3 Seg Neutrophils % 94.9 Lymphocytes % 1.9 Monocytes % 2.9 Eosinophils % 0.0 Basophils % 0.0 Neutrophils # 9.7 H Lymphocytes # 0.2 L Monocytes # 0.3 Eosinophils # 0.0 Basophils # 0.0 Platelet Estimate Slight Decrease L Hypochromasia Present A Poikilocytosis 1+ A Anisocytosis 1+ A Microcytosis Present A Target Cells 1+ A Tear Drop Cells 1+ A Ovalocytes 1+ A PT 27.7 H INR 2.5 Sodium Potassium Chloride Carbon Dioxide BUN Creatinine Est GFR ( Amer) Est GFR (Non-Af Amer) BUN/Creatinine Ratio Glucose POC Glucose Calculated Osmolality Calcium Troponin I 0.20 H* 11/17/17 05:20 WBC RBC Hgb Hct MCV MCH MCHC RDW Plt Count MPV Immature Gran % Seg Neutrophils % Lymphocytes % Monocytes % Eosinophils % Basophils % Neutrophils # Lymphocytes # Monocytes # Eosinophils # Basophils # Platelet Estimate Hypochromasia Poikilocytosis Anisocytosis Microcytosis Target Cells Tear Drop Cells Ovalocytes PT INR Sodium 138 Potassium 4.3 Chloride 96 L Carbon Dioxide 29 BUN 47 H Creatinine 3.60 H Est GFR ( Amer) 21 L Est GFR (Non-Af Amer) 17 L BUN/Creatinine Ratio 13 Glucose 70 POC Glucose Calculated Osmolality 297 Calcium 9.2 Troponin I - ABG Interpretation ABG results: ABG ABG pH 7.43 pH Units (7.32-7.45) 11/16/17 06:01 ABG pCO2 37 mmHg (35-45) 11/16/17 06:01 ABG pO2 73 mmHg (85-104) L 11/16/17 06:01 ABG O2 Saturation 95 % (95-98) 11/16/17 06:01 PT/INR, D-dimer PT 27.7 Seconds (9.4-12.1) H 11/17/17 05:20 Consult Discharge Plan - Plan Referrals: Jeromy Wall MD [Primary Care Provider] -
--- NOTE | 2017-11-17 07:48 | Cardiology Progress Note ---
Date of Encounter: 11/17/17 Time of Encounter: 07:45 Assessment and Plan (1) Lung cancer Current Visit: No Status: Chronic Per cardiology: Known lung CA. Oncology following. Appreciate palliative care assistance, it appears currently patient and family desire to remain full code. Qualifiers: Laterality: right Lung location: hilum of lung Qualified Code(s): C34.01 - Malignant neoplasm of right main bronchus (2) Acute exacerbation of chronic obstructive airways disease Current Visit: No Status: Acute Per cardiology: Admitted with COPD exacerbation. Rhino virus positive. Currently extubated, on BiPap. Management per pulmonary service. Appears stable, however resp status tenuous---requires constant BiPap. (3) Atrial flutter with rapid ventricular response Current Visit: Yes Status: Acute Per Cardiology: Currently aflutter 120's-- noted to have HR tachyardic with extubation, controlled HR while was on mechanical ventilation. Suspect pulmonary status driving tachycardia. Will be difficult to control HR given pulmonary issues. S/ p amio IV load, now on Amio 200mg PO BID, remains on amio gtt-- discussed with Dr. Grant and will stop gtt now (minimal impact on HR) on Cardizem CD 240mg PO daily and Toprol XL 25mg PO daily. Can consider RUBENS (has had low INR in past 30 days) and possible attempt at DCCV if resp status improves. On Coumadin for AC. INR 2.5. H&H downward trend, monitor closely. (4) Elevated troponin Current Visit: No Status: Acute Per Cardiology: Peak trop 0.22 in the setting of CKD, COPD, afib RVR. Has chronically elevated troponins. ECG with ST segment depression in lateral leads (unchanged from previous ECG when in a.flutter RVR). Known history of CAD with [facility] 2015: * Left Main Coronary Artery The LMCA is angiographically free of disease. * Left Anterior Descending There is a 70% stenosis in the Proximal LAD. The lesion has severely calcification noted. There is a 100% stenosis in the Mid LAD. The lesion has collaterals which feed from left to right and right to left * Circumflex There is a 100% stenosis in the Proximal Circumflex. Distribution supplied by collaterals from FLORES mid LAD and RCA. * Right Coronary Artery There is a 100% stenosis in the Proximal RCA. The lesion has mature collaterals which feed from right to right and right to left feeding the Circumflex. Additional Findings: Grafts * The left internal mammary graft to the Mid LAD is patent. Provides collateralls to OM1 * The saphenous vein graft to the Right PDA is occluded. * The saphenous vein graft to the 1st Marginal is occluded. CP free. Do not suspect NSTEMI, suspect demand ischemia related to above. On asa , statin, beta corina. Has Shellfish allergy. (5) Severe mitral regurgitation Current Visit: No Status: Chronic Per cardiology: Known severe MR per RUBENS 03/2017. Patient previously referred to [facility] outpatient for evaluation by Dr. Esteban 03/2017 for mitralclip per review of records. Medical records received from [facility] from August 2017. RUBENS performed and did show severe MR. No records noted regarding cardiology or CT surgery recommendations regarding valve. Discussed with Dr. Grant, can consider referral to [facility] for eval if patient family desire. It appears has been deemed not a candidate, however no records received to confirm. Patient and family not 100% certain. Will attempt to obtain any specific Cardiology or CT surgery records from [facility] if able. Current prognosis appears poor. (6) Cardiomyopathy Current Visit: No Status: Chronic Per cardiology: Known cardiomyopathy LVEF 45% on echo 08/2017. On beta corina. Had been on joelle inhibitor outpatient. Now held due to hypotension-- resume when/if able. Euvolemic on exam. Net I&O -2104ml. Chest x-ray with possible edema versus pneumonia. Patient is at his baseline weight. On hemodialysis. Strict I&Os, daily weights, continue HD per nephrology. Qualifiers: Cardiomyopathy type: unspecified Qualified Code(s): I42.9 - Cardiomyopathy , unspecified (7) ESRD (end stage renal disease) on dialysis Current Visit: No Status: Chronic Per Cardiology: Known ESRD on HD. Nephrology following. Discussion w patient/family: The assessment and plan as outlined above was discussed with the patient who expressed understanding and agreement. All questions were answered. Thank you for involving us in the care of your patient. Please call with any questions. Subjective Principal diagnosis: ESRD, lung CA, severe MR, a.flutter RVR Interval history: Patient denies any new concerns or complaints overnight. Reports continues to experience shortness of breath worse with removal of BiPAP. He denies any chest pain or palpitations. No family at bedside today. Objective Vital Signs, Last 4 Hours Pulse Resp BP Pulse Ox 11/17/17 06:00 129 22 107/76 97 11/17/17 05:00 130 23 83/62 97 11/17/17 04:09 34 94/67 98 11/17/17 04:00 129 22 94/67 98 General: Conversant HEENT: Atraumatic, Normocephaly Cardiac: Other (Irregularly irregular) Lungs: Other (Course scattered rhonchi throughout, on BiPAP, conversational dyspnea) Neuro: Alert and responsive, No focal deficits noted Abdomen: Non-Tender Skin: No rashes noted on visualized skin Musculoskeletal: No Chest Wall Tenderness Extremities: No Edema, Normal Pulses Results 11/17/17 05:20 11/17/17 05:20 Lab Results Laboratory Tests 11/09/17 11/15/17 11/16/17 18:36 03:40 19:00 Hgb 10.3 L Hct 35.4 L Plt Count 193 INR Creatinine Est GFR (Non-Af Amer) Troponin I 0.11 H* 0.22 H* 11/17/17 11/17/17 11/17/17 02:30 05:20 05:20 Hgb 8.9 L Hct 29.0 L Plt Count 115 L INR 2.5 Creatinine Est GFR (Non-Af Amer) Troponin I 0.20 H* 11/17/17 05:20 Hgb Hct Plt Count INR Creatinine 3.60 H Est GFR (Non-Af Amer) 17 L Troponin I Intake & Output 11/14/17 11/15/17 11/16/17 11/17/17 23:59 23:59 23:59 23:59 Intake Total 2094 / 2094 1400 / 1400 1660 / 1660 Output Total 2897 / 2897 3797 / 3797 2210 / 2210 Balance -803 / -803 -2397 / -2397 -550 / -550 - Weight 66.8 kg 63 kg Active Medications Acetylcysteine (Acetylcysteine 20%) 600 mg PO BID [facility] Stop: 05/12/18 09:01 Last Admin: 11/16/17 20:16 Dose: 600 mg Albuterol Sulfate (Proventil Neb) 2.5 mg IH Q4HR PRN; Protocol PRN Reason: Wheezing Stop: 05/12/18 01:42 Amiodarone HCl (Cordarone) 200 mg PO BID [facility] Stop: 05/17/18 21:01 Last Admin: 11/16/17 20:16 Dose: 200 mg Aspirin (Aspirin) 81 mg PO DAILY [facility] Stop: 05/13/18 09:01 Last Admin: 11/16/17 08:01 Dose: 81 mg Atorvastatin Calcium (Lipitor) 40 mg PO HS [facility] Stop: 05/12/18 21:01 Last Admin: 11/16/17 20:16 Dose: 40 mg Budesonide/Formoterol Fumarate (Symbicort) 2 puff IH BIDR [facility] PRN Reason: Protocol Stop: 05/12/18 10:01 Last Admin: 11/16/17 21:45 Dose: 2 puff Calcium Acetate (Phos-Lo) 667 mg PO TIDWM [facility] Stop: 05/12/18 08:01 Last Admin: 11/16/17 18:01 Dose: 667 mg Dextrose/Water (Dextrose 50% (Syg)) 25 ml IVP AD PRN PRN Reason: Hypoglycemia Stop: 05/13/18 11:15 Diltiazem HCl (Cardizem Cd) 240 mg PO DAILY [facility] Stop: 05/12/18 01:45 Last Admin: 11/16/17 08:03 Dose: 240 mg Docusate Sodium (Colace) 100 mg PO DAILY [facility] PRN Reason: Protocol Stop: 05/12/18 09:01 Last Admin: 11/16/17 08:03 Dose: 100 mg Famotidine (Pepcid) 10 mg IVP Q12HR [facility] PRN Reason: Protocol Stop: 05/16/18 06:01 Last Admin: 11/17/17 06:10 Dose: 10 mg Fluticasone Propionate (Flonase) 50 mcg NS DAILY [facility] PRN Reason: Protocol Stop: 05/13/18 16:31 Last Admin: 11/16/17 08:14 Dose: 50 mcg Gabapentin (Neurontin) 100 mg PO BID [facility] Stop: 05/14/18 21:01 Last Admin: 11/16/17 20:16 Dose: 100 mg Glucagon (Glucagen) 1 mg IM ONCE PRN PRN Reason: Hypoglycemia Stop: 05/13/18 11:15 Glucose (Gluctose) 15 gm PO ONCE PRN PRN Reason: Hypoglycemia Stop: 05/13/18 11:15 Glucose (Gluctose) 30 gm PO ONCE PRN PRN Reason: Hypoglycemia Stop: 05/13/18 11:15 Guaifenesin (Mucinex) 600 mg PO BID [facility] Stop: 05/12/18 09:01 Last Admin: 11/16/17 20:16 Dose: 600 mg Dextrose (Dextrose 5%) 1,000 mls @ 100 mls/hr IVC .Q10H PRN PRN Reason: HYPOGLYCEMIA Stop: 05/13/18 11:15 Albumin Human (Flexbumin) 12.5 gm in 50 mls @ 60 mls/hr IVPB ONCE PRN PRN Reason: Hypotension Stop: 05/14/18 09:00 Norepinephrine Bitartrate 4 mg (/ Dextrose) 254 mls @ 19.05 mls/hr IVC CONT [facility] ; 5 MCG/MIN PRN Reason: Protocol Stop: 05/15/18 18:46 Last Admin: 11/16/17 20:08 Dose: Not Given Amiodarone HCl/Dextrose (Amiodarone Drip Premix 360mg/200ml) 360 mg in 200 mls @ 16.667 mls/hr IVC CONT [facility] PRN Reason: 0.5 MG/MIN Stop: 05/16/18 21:01 Last Admin: 11/16/17 21:00 Dose: 0.5 mg/min, 16.667 mls/hr Piperacillin Sod/Tazobactam Sod (Zosyn Premix 3.375 Gm/200 Ml) 3.375 gm in 200 mls @ 50 mls/hr IVPB Q12HR [facility] Stop: 05/16/18 18:01 Last Admin: 11/17/17 06:12 Dose: 50 mls/hr Sodium Chloride (0.9 % Sodium Chloride) 1,000 mls @ 0 mls/hr PRIME .Q0M [facility] PRN Reason: As Directed Stop: 05/17/18 08:16 Sodium Chloride (0.9 % Sodium Chloride) 250 mls @ 937.5 mls/hr IVC .Q16M PRN PRN Reason: Hypotension Stop: 05/18/18 10:07 Insulin Human Lispro (Humalog) 0 units SQ Q6HR [facility] PRN Reason: Protocol Stop: 05/16/18 00:01 Last Admin: 11/17/17 06:02 Dose: Not Given Levalbuterol HCl (Xopenex) 1.25 mg IH [id number] [facility] Stop: 05/12/18 04:01 Last Admin: 11/17/17 04:08 Dose: 1.25 mg Megestrol Acetate (Megace) 800 mg PO DAILY [facility] PRN Reason: Protocol Stop: 05/12/18 09:01 Last Admin: 11/16/17 07:59 Dose: 800 mg Methylprednisolone (Solu-Medrol) 40 mg IVP Q12HR [facility] Stop: 05/16/18 18:01 Last Admin: 11/17/17 06:11 Dose: 40 mg Metoprolol Succinate (Toprol Xl) 25 mg PO DAILY [facility] Stop: 05/16/18 09:01 Last Admin: 11/16/17 08:00 Dose: 25 mg Midodrine (Proamatine) 2.5 mg PO 0800,1200,1700 [facility] Stop: 05/16/18 12:01 Last Admin: 11/16/17 18:00 Dose: 2.5 mg Naloxone HCl (Narcan) 0.4 mg IVP Q2MIN PRN PRN Reason: Opioid Reversal Stop: 05/12/18 00:47 Ondansetron HCl (Zofran) 4 mg IVP Q6HR PRN PRN Reason: Nausea And Vomiting Stop: 05/12/18 00:47 Oxycodone HCl (Roxicodone) 15 mg PO Q6HR PRN PRN Reason: Pain Stop: 05/18/18 17:53 Last Admin: 11/17/17 06:09 Dose: 15 mg Vancomycin HCl (Vancocin) 0 each IVPB RPHPROT PRN PRN Reason: PULSE DOSING Stop: 05/13/18 23:22 Vitamin B Complex/Vit C/Folic Acid (Renal Caps Softgel) 1 mg PO DAILY [facility] Stop: 05/15/18 09:01 Last Admin: 11/16/17 08:01 Dose: 1 mg Warfarin Sodium (Coumadin Perpt) 1 each PO DAILY@1800 PRN PRN Reason: SEE COMMENTS Stop: 05/12/18 08:01 - EKG Interpretation EKG results cardiology: other (Tele shows avg HR past 12 hrs 128, currently 120' s, aflutter) - VTE Documentation of Mechanical Device: Graduated compression elastic hosiery Consult Discharge Plan - Plan Referrals: Jeromy Wall MD [Primary Care Provider] -
[2017-11-17] MEDS ORDERED: 0.9 % Sodium Chloride 250 ML IVC PRN (08:35)
[2017-11-17] MEDS ORDERED: 0.9 % Sodium Chloride 2,000 ML ONE (08:36)
[2017-11-17] MEDS ORDERED: Albumin 25% 25gram/100mL 25 GM/100 ML IV.SOLN IVPB ONE (08:48)
[2017-11-17] MEDS: Renal Vitamin 1 MG CAPSULE PO SCH (08:51)
[2017-11-17] MEDS: Calcium Acetate 667 MG CAPSULE PO SCH ×3 (08:51→18:31)
[2017-11-17] MEDS: *HR* Amiodarone 200 MG TABLET PO SCH ×2 (08:51→19:41)
[2017-11-17] MEDS: Aspirin 81 MG TAB.CHEW PO SCH (08:52)
[2017-11-17] MEDS: Gabapentin 100 MG CAPSULE PO SCH ×2 (08:52→19:41)
[2017-11-17] MEDS: Diltiazem CD (24hr) 240 MG CAPSULE PO SCH (08:52)
[2017-11-17] MEDS: Metoprolol XL (24 HR) Succ 50 MG TAB.ER.24H PO SCH (08:52)
--- NOTE | 2017-11-17 08:52 | Nephrology Progress Note ---
Date of Encounter: 11/17/17 Time of Encounter: 08:20 - Assessment and Plan (1) ESRD (end stage renal disease) on dialysis Status: Chronic Will continue to gently challenge his dry weight by recommending UF today for a goal of 1-2 kg of fluid removal. Will also provide 25gm Albumin to help reduce the risk of dropping his BPs, montez in light of his MV disease. Counseled the pt to consider more palliative options, but he expressed that he desires to continue dialysis as a full code. Discussed with ICU team. (2) Hypertension Status: Chronic CCC Qualifiers: Hypertension type: essential hypertension Qualified Code(s): I10 - Essential (primary) hypertension (3) Pneumonia Status: Acute Appreciate the ICU team. Qualifiers: Pneumonia type: due to unspecified organism Laterality: right Lung location: upper lobe of lung Qualified Code(s): J18.1 - Lobar pneumonia, unspecified organism (4) Shortness of breath Status: Acute See above (5) Anemia in CKD (chronic kidney disease) Status: Chronic Goal Hgb is 10-11; IV iron and/or FREDIS as needed Qualifiers: Chronic kidney disease stage: on chronic dialysis Qualified Code(s): N18.6 - End stage renal disease; D63.1 - Anemia in chronic kidney disease; D63.1 - Anemia in chronic kidney disease; Z99.2 - Dependence on renal dialysis; Z99.2 - Dependence on renal dialysis; Z99.2 - Dependence on renal dialysis; Z99.2 - Dependence on renal dialysis (6) Atrial flutter Status: Chronic Cardio following. Also has MR Qualifiers: Atrial flutter type: typical Qualified Code(s): I48.3 - Typical atrial flutter (7) Lung cancer Status: Chronic Appreciate Oncology's input Qualifiers: Laterality: right Lung location: hilum of lung Qualified Code(s): C34.01 - Malignant neoplasm of right main bronchus Subjective Principal diagnosis: ESRD, lung CA, severe MR, a.flutter RVR Interval history: Pt was seen/examined this AM. He did not affirm N/V/D. Objective - Vital Signs Vital signs: Vital Signs Temp Pulse Resp BP Pulse Ox 11/17/17 08:44 97.4 F L 11/17/17 08:00 128 30 108/64 96 11/17/17 07:00 130 27 92/77 99 01/20/18 06:00 129 22 107/76 97 11/17/17 05:00 130 23 83/62 97 11/17/17 04:09 34 94/67 98 11/17/17 04:00 129 22 94/67 98 18 03:35 99.3 F 11/17/17 03:00 128 24 92/71 97 11/17/17 02:00 128 20 109/86 95 11/17/17 01:00 128 22 96/77 95 11/17/17 00:00 129 24 109/68 97 11/16/17 23:55 28 93/62 100 11/16/17 23:54 99.5 F 11/16/17 23:00 129 26 101/61 98 11/16/17 22:00 128 28 93/72 99 11/16/17 21:45 26 101/74 94 11/16/17 21:00 129 22 101/74 99 11/16/17 20:00 128 28 98/67 100 11/16/17 19:15 98.1 F 11/16/17 19:00 129 22 114/72 99 11/16/17 18:40 98.0 F 17 128/75 18 18:25 126/99 18 18:10 114/85 18 18:00 125 26 120/84 96 11/16/17 17:55 120/83 18 17:40 124/83 18 17:25 124/83 18 17:10 118/77 18 17:00 129 25 118/77 95 18 16:55 107/84 18 16:40 119/76 18 16:30 129 16 114/69 95 18 16:25 107/90 18 16:10 114/69 18 15:55 100/70 18 15:40 95/65 18 15:25 98.3 F 20 98/63 18 15:20 21 87/68 96 18 15:00 110 24 95/57 95 18 14:00 106 20 90/56 100 11/16/17 13:00 125 26 112/81 100 11/16/17 12:28 98.1 F 11/16/17 12:00 129 23 114/78 100 11/16/17 11:26 25 100 11/16/17 11:00 101 26 108/75 97 11/16/17 10:00 125 25 109/77 100 11/16/17 09:00 125 20 100/73 98 Intake and Output 11/16/17 11/17/17 11/17/17 23:59 07:59 15:59 Intake Total 550 / 550 Output Total 2150 / 2150 Balance -1600 / -1600 - Intake: IV Fluids 400 / 400 Amiodarone Drip Premix 360mg/ 200 / 200 200mL 360 mg In 200 ml @ 0.5 MG /MIN 16.667 mls/hr IVC CONT [facility] Rx#:[id number] Zosyn Premix 3.375 GM/200 ML 3. 200 / 200 375 gm In 200 ml @ 50 mls/hr IVPB Q12HR [facility] Rx#:[id number] Oral 150 / 150 Output: Urine 0 / 0 Total Dialysis (HD) Output 2100 / 2100 Catheter 50 / 50 Other: Meal dustin cracker x2 Weight 63 kg Blood Glucose* 197 68 Hemodialysis Net Fluid Removed 1500 (mL) Patient Weight 11/17/17 23:59 Weight 63 kg - General Appearance Exam: General appearance: Present: cachectic, chronically ill, fatigue, frail EENT: Present: ATNC, PERRL, mucous membranes moist Neck: Present: supple Respiratory: Present: wheezing, course breath sounds, rhonchi Cardiology: Present: holosystolic murmur, no edema, irregular rhythm, normal S1 , normal S2 Dialysis Vascular Access: Arteriovenous Fistula thrill: Yes bruit: Yes Gastrointestinal: Present: normoactive bowel sounds, no tenderness, no guarding Integumentary: Present: warm and dry, ecchymotic Neurologic: Present: no focal deficit, no asterixis, alert and oriented x3 Musculoskeletal: Present: no erythema, no cyanosis, no clubbing Psychiatric: Present: mood/affect appropriate, cooperative - Lab 11/19/17 03:50 11/19/17 03:50 Most recent lab results ABG pH 7.43 pH Units (7.32-7.45) 11/16/17 06:01 ABG pCO2 37 mmHg (35-45) 11/16/17 06:01 ABG pO2 73 mmHg (85-104) L 11/16/17 06:01 ABG HCO3 25 mEq/L (21-27) 11/16/17 06:01 ABG O2 Saturation 95 % (95-98) 11/16/17 06:01 Calcium 9.2 mg/dL (8.6-10.3) 11/17/17 05:20 Phosphorus 9.7 mg/dL (2.7-4.5) H 11/14/17 03:42 Magnesium 2.2 mg/dL (1.6-2.6) 11/11/17 18:27 - VTE Documentation of Mechanical Device: Graduated compression elastic hosiery Consult Discharge Plan - Plan Instructions: Mitral Regurgitation (DC), Bacterial Pneumonia (DC), End-Stage Kidney Disease (DC) Additional Instructions: Nephrology recommended dialysis at least Sunday with ultrafiltration as needed to improve his respiratory status. Referrals: Jeromy Wall MD [Primary Care Provider] -
[2017-11-17] MEDS: *HR* Acetylcysteine 20% 600 MG/3 ML ORAL SYRINGE PO SCH ×2 (08:53→19:41)
[2017-11-17] MEDS: Megestrol Acetate 400 MG/10 ML UDC PO SCH (08:53)
[2017-11-17] MEDS: Fluticasone Propionate Nasal 50 MCG/SPRAY BOTTLE NS SCH (08:54)
[2017-11-17] MEDS: Amiodarone Premix 360 MG/200 ML BAG IVC SCH (08:55)
[2017-11-17] MEDS: Budesonide/Formoterol 160/4.5 MDI IH SCH ×2 (09:19→22:23)
--- NOTE | 2017-11-17 10:32 | Pulmonology Progress Note ---
Date of Encounter: 11/17/17 Time of Encounter: 07:40 Assessment and Plan (1) Acute and chronic respiratory failure ([id number]) Current Visit: No Status: Acute This is a very complicated case with respiratory failure which is multifactorial due to his underlying chronic lung disease as well as mitral valve disease and end-stage renal disease with history of lung cancer. Patient CODE STATUS remains full and this was discussed with patient as well as his by all the services cardiology, nephrology, palliative care as well as ICU/ pulmonary. I personally suspect overall prognosis is very poor due to whatever mentioned above. We will continue supportive care with noninvasive ventilation and patient would have ultrafiltration with dialysis service and cardiology is following up as well. Patient to stay in ICU for now for close monitoring. Qualifiers: Respiratory failure complication: hypoxia Qualified Code(s): J96.21 - Acute and chronic respiratory failure with hypoxia (2) HCAP (healthcare-associated pneumonia) Current Visit: No Status: Acute Patient on broad-spectrum antibiotics and I suspect fungal element is contamination. Will consider infectious disease recommendation. (3) CHF (congestive heart failure) Current Visit: No Status: Chronic Qualifiers: Congestive heart failure type: unspecified congestive heart failure type Congestive heart failure chronicity: acute on chronic Qualified Code(s): I50.9 - Heart failure, unspecified (4) COPD (chronic obstructive pulmonary disease) Current Visit: No Status: Chronic Qualifiers: COPD type: COPD with acute exacerbation Qualified Code(s): J44.1 - Chronic obstructive pulmonary disease with (acute) exacerbation (5) ESRD (end stage renal disease) Current Visit: No Status: Chronic Subjective Principal diagnosis: ESRD, lung CA, severe MR, a.flutter RVR Interval history: Patient is not able to stay off noninvasive ventilation mainly due to work of breathing and hypoxia. Otherwise he denies any significant changes from yesterday. Objective PUL Vital signs: Last Vital Signs Temp 97.4 F L 11/17/17 08:44 Pulse 129 11/17/17 09:00 Resp 31 11/17/17 09:00 BP 115/81 11/17/17 09:00 Pulse Ox 99 11/17/17 09:00 General appearance: appears uncomfortable Eyes: nonicteric ENT: oropharynx dry Neck: supple, JVD Effort: mildly labored Auscultation: bilateral: rales Percussion: bilateral: not dull Cardiovascular: irregular rhythm, murmur noted Gastrointestinal: normoactive bowel sounds, non-distended Extremities: no cyanosis, edema normal mental status, non-focal exam mood appropriate Results - Laboratory Findings CBC and BMP: 11/17/17 05:20 11/17/17 05:20 ABG ABG pH 7.43 pH Units (7.32-7.45) 11/16/17 06:01 ABG pCO2 37 mmHg (35-45) 11/16/17 06:01 ABG pO2 73 mmHg (85-104) L 11/16/17 06:01 ABG O2 Saturation 95 % (95-98) 11/16/17 06:01 PT/INR, D-dimer PT 27.7 Seconds (9.4-12.1) H 11/17/17 05:20 Abnormal lab findings: Abnormal lab results RBC 3.01 M/mcL (4.19-5.50) L 11/17/17 05:20 Hgb 8.9 g/dL (12.9-16.9) L 11/17/17 05:20 Hct 29.0 % (37.5-50.1) L 11/17/17 05:20 MCHC 30.7 g/dL (31.6-35.5) L 11/17/17 05:20 RDW 19.0 % (11.5-14.5) H 11/17/17 05:20 Plt Count 115 K/mcL (140-400) L 11/17/17 05:20 Neutrophils # 9.7 K/mcL (1.6-8.9) H 11/17/17 05:20 Lymphocytes # 0.2 K/mcL (0.6-4.6) L 11/17/17 05:20 Nucleated RBCs/100 WBC 0.4 /100 WBC (0) H 11/15/17 03:40 Platelet Estimate Slight Decrease (Normal) L 11/17/17 05:20 Large Platelets Present (Not Present) A 11/16/17 04:20 Hypochromasia Present (Not Present) A 11/17/17 05:20 Poikilocytosis 1+ (Not Present) A 11/17/17 05:20 Anisocytosis 1+ (Not Present) A 11/17/17 05:20 Microcytosis Present (Not Present) A 11/17/17 05:20 Macrocytosis Present (Not Present) A 11/16/17 04:20 Target Cells 1+ (Not Present) A 11/17/17 05:20 Tear Drop Cells 1+ (Not Present) A 11/17/17 05:20 Ovalocytes 1+ (Not Present) A 11/17/17 05:20 Acanthocytes (Spur) 2+ (Not Present) A 11/16/17 04:20 PT 27.7 Seconds (9.4-12.1) H 11/17/17 05:20 ABG pO2 73 mmHg (85-104) L 11/16/17 06:01 Chloride 96 mEq/L (98-107) L 11/17/17 05:20 BUN 47 mg/dL (6-20) H 11/17/17 05:20 Creatinine 3.60 mg/dL (0.70-1.30) H 11/17/17 05:20 Est GFR ( Amer) 21 (> 60) L 11/17/17 05:20 Est GFR (Non-Af Amer) 17 (> 60) L 11/17/17 05:20 POC Glucose 197 (58-89) H 11/16/17 23:56 Phosphorus 9.7 mg/dL (2.7-4.5) H 11/14/17 03:42 Iron 27 mcg/dL (65-175) L 11/14/17 03:42 % Saturation 15 % (20-55) L 11/14/17 03:42 Transferrin 127 mg/dL (203-362) L 11/14/17 03:42 Ferritin > 1350 ng/ml (20-250) H 11/14/17 03:42 Alkaline Phosphatase 138 Units/L (34-104) H 11/12/17 12:43 Troponin I 0.21 ng/mL (< 0.04) H* 11/17/17 07:48 B-Natriuretic Peptide 2051 pg/mL (Less than 100) H 11/15/17 03:40 Albumin 3.1 g/dL (3.5-5.7) L 11/14/17 03:42 25-OH Vitamin D Total 28 ng/mL (30-80) L 11/14/17 03:42 Folate 26.0 ng/mL (3.0-16.0) H 11/14/17 03:42 Hep Bs Antigen Reactive (Nonreactive) H 11/10/17 09:35 Entero/Rhino (PCR) DETECTED (Not Detect) A 11/10/17 04:30 - Microbiology Findings Microbiology Findings: Microbiology, Last 48 Hours 11/13/17 20:30 Sputum Culture - Preliminary Sputum Methicillin Resistant S.aureus Fungal Elements - Clinical Findings Intake & Output: Intake & Output 11/16/17 11/17/17 11/17/17 23:59 07:59 15:59 Intake Total 550 / 550 200 / 200 Output Total 2150 / 2150 Balance -1600 / -1600 -20 / -20 200 / 200 Weight 63 kg - VTE Documentation of Mechanical Device: Graduated compression elastic hosiery Consult Discharge Plan - Plan Referrals: Jeromy Wall MD [Primary Care Provider] -
[2017-11-17] MEDS ORDERED: *HR* Warfarin 2 MG TABLET PO ONE (18:00)
[2017-11-17] MEDS ORDERED: 0.9 % Sodium Chloride 250 ML ONE (21:55)
[2017-11-17] MEDS: Dexmedetomidine HCl 400 MCG/100 ML MLS IVC SCH (21:58)
[2017-11-17 22:29] LABS: ABG Base Excess 0 mEq/L (-2 to 3); ABG HCO3 25 mEq/L (21-27); ABG Oxygen Saturation 95 % (95-98); ABG PCO2 40 mmHg (35-45); ABG PO2 76 mmHg (85-104); ABG TCO2 26 mEq/L (20-26); Blood Gas PEEP 8 cm H2O
[2017-11-17 22:50] LABS: Basophils % 0.1 %; Hematocrit 31.5 % (37.5-50.1); Hemoglobin 9.5 g/dL (12.9-16.9); Immature Granulocytes % 0.7 % (0-4); Immature Platelets 10.2 % (1.1-6.1); Lymphocytes # 0.1 K/mcL (0.6-4.6); Lymphocytes % 1.4 %; Mean Corpuscular HGB Conc 30.2 g/dL (31.6-35.5); Mean Corpuscular Hemoglobin 29.1 pg (28.0-33.3); Mean Corpuscular Volume 96.6 fL (83.0-100.0); Mean Platelet Volume 12.4 fL (9.4-12.4); Monocytes % 2.5 %; Neutrophils # 9.3 K/mcL (1.6-8.9); Platelet Count 133 K/mcL (140-400); Red Blood Count 3.26 M/mcL (4.19-5.50); Red Cell Distribution Width 18.8 % (11.5-14.5); Segmented Neutrophils % 95.3 %
[2017-11-17 23:00] LABS: Monocytes # 0.3 K/mcL (0.0-1.3)
[2017-11-17 23:05] LABS: Calcium 9.5 mg/dL (8.6-10.3); Potassium 4.6 mEq/L (3.5-5.1)
[2017-11-17 23:15] LABS: Anisocytosis 1+ (Not Present); Hypochromasia Present (Not Present); Large Platelets Present (Not Present); Ovalocytes 1+ (Not Present); Platelet Estimate Normal (Normal); Poikilocytosis 2+ (Not Present); Target Cells 1+ (Not Present)
[2017-11-18] MEDS: D10% in Water 500 ML IVC SCH ×2 (00:14→19:29)
[2017-11-18] MEDS: Norepinephrine 4 MG in D5% in Water 250 ML IVC SCH ×3 (01:50→23:23)
[2017-11-18] MEDS: Levalbuterol Neb 1.25 MG/3 ML IH SCH ×5 (04:10→21:16)
[2017-11-18 04:43] LABS: Calcium 9.2 mg/dL (8.6-10.3); Potassium 5.4 mEq/L (3.5-5.1)
[2017-11-18 04:47] LABS: Basophils % 0.1 %; Hematocrit 29.7 % (37.5-50.1); Hemoglobin 9.2 g/dL (12.9-16.9); Immature Granulocytes % 0.7 % (0-4); Lymphocytes # 0.2 K/mcL (0.6-4.6); Lymphocytes % 1.5 %; Mean Corpuscular Hemoglobin 29.4 pg (28.0-33.3); Mean Corpuscular Volume 94.9 fL (83.0-100.0); Mean Platelet Volume 12.5 fL (9.4-12.4); Monocytes # 0.3 K/mcL (0.0-1.3); Monocytes % 2.3 %; Neutrophils # 10.7 K/mcL (1.6-8.9); Platelet Count 161 K/mcL (140-400); Red Blood Count 3.13 M/mcL (4.19-5.50); Red Cell Distribution Width 18.8 % (11.5-14.5); Segmented Neutrophils % 95.4 %
[2017-11-18 05:38] LABS: Platelet Estimate Normal (Normal)
[2017-11-18 05:39] LABS: Anisocytosis 1+ (Not Present)
[2017-11-18] MEDS: Insulin LISPRO 300 UNITS/3 ML VIAL SQ SCH ×4 (05:47→23:22)
[2017-11-18] MEDS: Famotidine 20 MG/2 ML VIAL IVP SCH ×2 (05:47→18:14)
[2017-11-18] MEDS: MethylPREDNISolone 40 MG/ML VIAL IVP SCH ×2 (05:48→18:14)
[2017-11-18] MEDS: Piperacillin/Tazobactam 3.375 GM/200 ML BAG IVPB SCH ×2 (05:50→18:14)
--- NOTE | 2017-11-18 08:04 | Palliative Progress Note ---
Date of Encounter: 11/18/17 Time of Encounter: 07:20 - Assessment and plan (1) Acute exacerbation of chronic obstructive airways disease Current Visit: No Status: Acute Assessment and plan: Remains BiPAP dependent, however he is tolerating it well this morning. This continues today, patient has now expressed desire not to be intubated. CODE STATUS was changed. (2) Goals of care, counseling/discussion Current Visit: Yes Status: Acute Assessment and plan: The patient is clear that he still wishes to have dialysis and aggressive care, however he does not want to be back on the vent his exact "was I do not want no vent"I explained to him about his heart stopping and he did not wish to be resuscitated in the event of cardiac arrest as he does not wish to be back on a vent. I have encouraged him to discuss this further with his his it trainee and with his family. I will change the CODE STATUS as the patient has requested that I do so, this was done with the night nurse in the day nurse Jacky in attendance please see the nurse's notes. (3) Dyspnea Current Visit: Yes Status: Acute Assessment and plan: Tolerating BiPAP well at this time Qualifiers: Dyspnea type: unspecified Qualified Code(s): R06.00 - Dyspnea, unspecified (4) ESRD (end stage renal disease) on dialysis Current Visit: No Status: Chronic Assessment and plan: Continues on dialysis. Wishes to continue dialysis. However he did rest request changing CODE STATUS. (5) History of lung cancer Current Visit: No Status: Chronic - Time Spent With Patient Total time spent is greater than 50% in coordination of care (as documented) at patient's floor/unit and/or counseling patient: - Subjective Interval history: On BiPAP, tolerating it well. Events of night noted. Patient is at this time awake alert and oriented. Patient has told the nurse during the night that he "do not want no vent" this is in direct contradiction to what he had told Dr. Diallo yesterday. I spoke to him at length about that this morning and this is present he said he did not wish to be intubated in the in the event of cardiac arrest where just keep him comfortable. Please see the assessment and plan. He is tolerating the BiPAP quite well at this time and has no complaints of pain at this time. - Constitutional Vitals: Abnormal lab results WBC 11.2 K/mcL (4.3-11.1) H 11/18/17 04:10 RBC 3.13 M/mcL (4.19-5.50) L 11/18/17 04:10 Hgb 9.2 g/dL (12.9-16.9) L 11/18/17 04:10 Hct 29.7 % (37.5-50.1) L 11/18/17 04:10 MCHC 31.0 g/dL (31.6-35.5) L 11/18/17 04:10 RDW 18.8 % (11.5-14.5) H 11/18/17 04:10 MPV 12.5 fL (9.4-12.4) H 11/18/17 04:10 Neutrophils # 10.7 K/mcL (1.6-8.9) H 11/18/17 04:10 Lymphocytes # 0.2 K/mcL (0.6-4.6) L 11/18/17 04:10 Nucleated RBCs/100 WBC 0.4 /100 WBC (0) H 11/15/17 03:40 Large Platelets Present (Not Present) A 11/17/17 22:32 Immature Plt Fraction 10.2 % (1.1-6.1) H 11/17/17 22:32 Hypochromasia Present (Not Present) A 11/17/17 22:32 Poikilocytosis 2+ (Not Present) A 11/17/17 22:32 Anisocytosis 1+ (Not Present) A 11/18/17 04:10 Microcytosis Present (Not Present) A 11/17/17 05:20 Macrocytosis Present (Not Present) A 11/16/17 04:20 Target Cells 1+ (Not Present) A 11/17/17 22:32 Tear Drop Cells 1+ (Not Present) A 11/17/17 05:20 Ovalocytes 1+ (Not Present) A 11/17/17 22:32 Acanthocytes (Spur) 2+ (Not Present) A 11/16/17 04:20 PT 27.7 Seconds (9.4-12.1) H 11/17/17 05:20 ABG pO2 76 mmHg (85-104) L 11/17/17 22:24 Potassium 5.4 mEq/L (3.5-5.1) H 11/18/17 04:10 Chloride 93 mEq/L (98-107) L 11/18/17 04:10 BUN 81 mg/dL (6-20) H 11/18/17 04:10 Creatinine 5.04 mg/dL (0.70-1.30) H 11/18/17 04:10 Est GFR ( Amer) 14 (> 60) L 11/18/17 04:10 Est GFR (Non-Af Amer) 12 (> 60) L 11/18/17 04:10 Glucose 168 mg/dL (70-105) H 11/18/17 04:10 POC Glucose 149 (58-89) H 11/18/17 01:16 Calculated Osmolality 314 (280-300) H 11/18/17 04:10 Phosphorus 9.7 mg/dL (2.7-4.5) H 11/14/17 03:42 Iron 27 mcg/dL (65-175) L 11/14/17 03:42 % Saturation 15 % (20-55) L 11/14/17 03:42 Transferrin 127 mg/dL (203-362) L 11/14/17 03:42 Ferritin > 1350 ng/ml (20-250) H 11/14/17 03:42 Alkaline Phosphatase 138 Units/L (34-104) H 11/12/17 12:43 Troponin I 0.21 ng/mL (< 0.04) H* 11/17/17 07:48 B-Natriuretic Peptide 2051 pg/mL (Less than 100) H 11/15/17 03:40 Albumin 3.1 g/dL (3.5-5.7) L 11/14/17 03:42 25-OH Vitamin D Total 28 ng/mL (30-80) L 11/14/17 03:42 Folate 26.0 ng/mL (3.0-16.0) H 11/14/17 03:42 Hep Bs Antigen Reactive (Nonreactive) H 11/10/17 09:35 Entero/Rhino (PCR) DETECTED (Not Detect) A 11/10/17 04:30 General appearance: Present: no acute distress - Eye Eye exam: Present: normal appearance - Respiratory Respiratory exam: Present: decreased breath sounds, wheezes - Cardiovascular Cardiovascular exam: Present: tachycardia - Extremities Exam Extremities exam: Absent: pedal edema, tenderness - Neurological Exam Neurological exam: Present: alert, oriented X3 - Psychiatric Psychiatric exam: Absent: agitated, anxious - Skin Skin exam: Present: dry, warm Palliative Quality Palliative Quality: Screen for Code Status: Yes, Screen for Goals of Care: Yes, Screen for Pain: Yes, If Pain Regimen Started, Initiate Bowel Regimen: Yes, Screen for Nausea/Vomitting: Yes - Labs CBC & Chem 7: 11/18/17 04:10 11/18/17 04:10 Labs: Laboratory Results - last 24 hr 11/17/17 11/17/17 11/17/17 06:02 07:48 12:53 WBC RBC Hgb Hct MCV MCH MCHC RDW Plt Count MPV Immature Gran % Seg Neutrophils % Lymphocytes % Monocytes % Eosinophils % Basophils % Neutrophils # Lymphocytes # Monocytes # Eosinophils # Basophils # Platelet Estimate Large Platelets Immature Plt Fraction Hypochromasia Poikilocytosis Anisocytosis Target Cells Ovalocytes ABG pH ABG pCO2 ABG pO2 ABG HCO3 ABG Total CO2 ABG O2 Saturation ABG Base Excess O2 Delivery Device Inspired O2 PEEP Sodium Potassium Chloride Carbon Dioxide BUN Creatinine Est GFR ( Amer) Est GFR (Non-Af Amer) BUN/Creatinine Ratio Glucose POC Glucose 68 132 H Calculated Osmolality Calcium Troponin I 0.21 H* 11/17/17 11/17/17 11/17/17 19:12 22:24 22:32 WBC 9.8 RBC 3.26 L Hgb 9.5 L Hct 31.5 L MCV 96.6 MCH 29.1 MCHC 30.2 L RDW 18.8 H Plt Count 133 L MPV 12.4 Immature Gran % 0.7 Seg Neutrophils % 95.3 Lymphocytes % 1.4 Monocytes % 2.5 Eosinophils % 0.0 Basophils % 0.1 Neutrophils # 9.3 H Lymphocytes # 0.1 L Monocytes # 0.3 Eosinophils # 0.0 Basophils # 0.0 Platelet Estimate Normal Large Platelets Present A Immature Plt Fraction 10.2 H Hypochromasia Present A Poikilocytosis 2+ A Anisocytosis 1+ A Target Cells 1+ A Ovalocytes 1+ A ABG pH 7.40 ABG pCO2 40 ABG pO2 76 L ABG HCO3 25 ABG Total CO2 26 ABG O2 Saturation 95 ABG Base Excess 0 O2 Delivery Device BiPAP Inspired O2 30.0 PEEP 8 Sodium Potassium Chloride Carbon Dioxide BUN Creatinine Est GFR ( Amer) Est GFR (Non-Af Amer) BUN/Creatinine Ratio Glucose POC Glucose 275 H Calculated Osmolality Calcium Troponin I 11/17/17 11/17/17 11/17/17 22:32 23:19 23:20 WBC RBC Hgb Hct MCV MCH MCHC RDW Plt Count MPV Immature Gran % Seg Neutrophils % Lymphocytes % Monocytes % Eosinophils % Basophils % Neutrophils # Lymphocytes # Monocytes # Eosinophils # Basophils # Platelet Estimate Large Platelets Immature Plt Fraction Hypochromasia Poikilocytosis Anisocytosis Target Cells Ovalocytes ABG pH ABG pCO2 ABG pO2 ABG HCO3 ABG Total CO2 ABG O2 Saturation ABG Base Excess O2 Delivery Device Inspired O2 PEEP Sodium 138 Potassium 4.6 Chloride 94 L Carbon Dioxide 24 BUN 71 H Creatinine 4.40 H Est GFR ( Amer) 17 L Est GFR (Non-Af Amer) 14 L BUN/Creatinine Ratio 16 Glucose 52 L POC Glucose 47 L* 45 L* Calculated Osmolality 304 H Calcium 9.5 Troponin I 11/17/17 11/18/17 11/18/17 23:50 01:16 04:10 WBC 11.2 H RBC 3.13 L Hgb 9.2 L Hct 29.7 L MCV 94.9 MCH 29.4 MCHC 31.0 L RDW 18.8 H Plt Count 161 MPV 12.5 H Immature Gran % 0.7 Seg Neutrophils % 95.4 Lymphocytes % 1.5 Monocytes % 2.3 Eosinophils % 0.0 Basophils % 0.1 Neutrophils # 10.7 H Lymphocytes # 0.2 L Monocytes # 0.3 Eosinophils # 0.0 Basophils # 0.0 Platelet Estimate Normal Large Platelets Immature Plt Fraction Hypochromasia Poikilocytosis Anisocytosis 1+ A Target Cells Ovalocytes ABG pH ABG pCO2 ABG pO2 ABG HCO3 ABG Total CO2 ABG O2 Saturation ABG Base Excess O2 Delivery Device Inspired O2 PEEP Sodium Potassium Chloride Carbon Dioxide BUN Creatinine Est GFR ( Amer) Est GFR (Non-Af Amer) BUN/Creatinine Ratio Glucose POC Glucose 140 H 149 H Calculated Osmolality Calcium Troponin I 11/18/17 04:10 WBC RBC Hgb Hct MCV MCH MCHC RDW Plt Count MPV Immature Gran % Seg Neutrophils % Lymphocytes % Monocytes % Eosinophils % Basophils % Neutrophils # Lymphocytes # Monocytes # Eosinophils # Basophils # Platelet Estimate Large Platelets Immature Plt Fraction Hypochromasia Poikilocytosis Anisocytosis Target Cells Ovalocytes ABG pH ABG pCO2 ABG pO2 ABG HCO3 ABG Total CO2 ABG O2 Saturation ABG Base Excess O2 Delivery Device Inspired O2 PEEP Sodium 138 Potassium 5.4 H Chloride 93 L Carbon Dioxide 23 BUN 81 H Creatinine 5.04 H Est GFR ( Amer) 14 L Est GFR (Non-Af Amer) 12 L BUN/Creatinine Ratio 16 Glucose 168 H POC Glucose Calculated Osmolality 314 H Calcium 9.2 Troponin I - ABG Interpretation ABG results: ABG ABG pH 7.40 pH Units (7.32-7.45) 11/17/17 22:24 ABG pCO2 40 mmHg (35-45) 11/17/17 22:24 ABG pO2 76 mmHg (85-104) L 11/17/17 22:24 ABG O2 Saturation 95 % (95-98) 11/17/17 22:24 PT/INR, D-dimer PT 27.7 Seconds (9.4-12.1) H 11/17/17 05:20 Consult Discharge Plan - Plan Referrals: Jeromy Wall MD [Primary Care Provider] -
--- NOTE | 2017-11-18 10:09 | Pulmonology Progress Note ---
<Yamileth Gautam M - Last Filed: 11/18/17 10:14> Date of Encounter: 11/18/17 Assessment and Plan (1) Acute and chronic respiratory failure ([id number]) Current Visit: No Status: Acute Qualifiers: Respiratory failure complication: hypoxia Qualified Code(s): J96.21 - Acute and chronic respiratory failure with hypoxia (2) HCAP (healthcare-associated pneumonia) Current Visit: No Status: Acute (3) CHF (congestive heart failure) Current Visit: No Status: Chronic Qualifiers: Congestive heart failure type: unspecified congestive heart failure type Congestive heart failure chronicity: acute on chronic Qualified Code(s): I50.9 - Heart failure, unspecified (4) COPD (chronic obstructive pulmonary disease) Current Visit: No Status: Chronic Qualifiers: COPD type: COPD with acute exacerbation Qualified Code(s): J44.1 - Chronic obstructive pulmonary disease with (acute) exacerbation (5) ESRD (end stage renal disease) Current Visit: No Status: Chronic Objective PUL Vital signs: Last Vital Signs Temp 98.4 F 11/18/17 07:25 Pulse 94 11/18/17 09:00 Resp 22 11/18/17 09:00 BP 77/58 11/18/17 09:00 Pulse Ox 94 11/18/17 09:00 Results - Laboratory Findings CBC and BMP: 11/18/17 04:10 11/18/17 04:10 ABG ABG pH 7.40 pH Units (7.32-7.45) 11/17/17 22:24 ABG pCO2 40 mmHg (35-45) 11/17/17 22:24 ABG pO2 76 mmHg (85-104) L 11/17/17 22:24 ABG O2 Saturation 95 % (95-98) 11/17/17 22:24 PT/INR, D-dimer PT 27.7 Seconds (9.4-12.1) H 11/17/17 05:20 Abnormal lab findings: Abnormal lab results WBC 11.2 K/mcL (4.3-11.1) H 11/18/17 04:10 RBC 3.13 M/mcL (4.19-5.50) L 11/18/17 04:10 Hgb 9.2 g/dL (12.9-16.9) L 11/18/17 04:10 Hct 29.7 % (37.5-50.1) L 11/18/17 04:10 MCHC 31.0 g/dL (31.6-35.5) L 11/18/17 04:10 RDW 18.8 % (11.5-14.5) H 11/18/17 04:10 MPV 12.5 fL (9.4-12.4) H 11/18/17 04:10 Neutrophils # 10.7 K/mcL (1.6-8.9) H 11/18/17 04:10 Lymphocytes # 0.2 K/mcL (0.6-4.6) L 11/18/17 04:10 Nucleated RBCs/100 WBC 0.4 /100 WBC (0) H 11/15/17 03:40 Large Platelets Present (Not Present) A 11/17/17 22:32 Immature Plt Fraction 10.2 % (1.1-6.1) H 11/17/17 22:32 Hypochromasia Present (Not Present) A 11/17/17 22:32 Poikilocytosis 2+ (Not Present) A 11/17/17 22:32 Anisocytosis 1+ (Not Present) A 11/18/17 04:10 Microcytosis Present (Not Present) A 11/17/17 05:20 Macrocytosis Present (Not Present) A 11/16/17 04:20 Target Cells 1+ (Not Present) A 11/17/17 22:32 Tear Drop Cells 1+ (Not Present) A 11/17/17 05:20 Ovalocytes 1+ (Not Present) A 11/17/17 22:32 Acanthocytes (Spur) 2+ (Not Present) A 11/16/17 04:20 PT 27.7 Seconds (9.4-12.1) H 11/17/17 05:20 ABG pO2 76 mmHg (85-104) L 11/17/17 22:24 Potassium 5.4 mEq/L (3.5-5.1) H 11/18/17 04:10 Chloride 93 mEq/L (98-107) L 11/18/17 04:10 BUN 81 mg/dL (6-20) H 11/18/17 04:10 Creatinine 5.04 mg/dL (0.70-1.30) H 11/18/17 04:10 Est GFR ( Amer) 14 (> 60) L 11/18/17 04:10 Est GFR (Non-Af Amer) 12 (> 60) L 11/18/17 04:10 Glucose 168 mg/dL (70-105) H 11/18/17 04:10 POC Glucose 149 (58-89) H 11/18/17 01:16 Calculated Osmolality 314 (280-300) H 11/18/17 04:10 Phosphorus 9.7 mg/dL (2.7-4.5) H 11/14/17 03:42 Iron 27 mcg/dL (65-175) L 11/14/17 03:42 % Saturation 15 % (20-55) L 11/14/17 03:42 Transferrin 127 mg/dL (203-362) L 11/14/17 03:42 Ferritin > 1350 ng/ml (20-250) H 11/14/17 03:42 Alkaline Phosphatase 138 Units/L (34-104) H 11/12/17 12:43 Troponin I 0.21 ng/mL (< 0.04) H* 11/17/17 07:48 B-Natriuretic Peptide 2051 pg/mL (Less than 100) H 11/15/17 03:40 Albumin 3.1 g/dL (3.5-5.7) L 11/14/17 03:42 25-OH Vitamin D Total 28 ng/mL (30-80) L 11/14/17 03:42 Folate 26.0 ng/mL (3.0-16.0) H 11/14/17 03:42 Hep Bs Antigen Reactive (Nonreactive) H 11/10/17 09:35 Entero/Rhino (PCR) DETECTED (Not Detect) A 11/10/17 04:30 - Microbiology Findings Microbiology Findings: Microbiology, Last 48 Hours 11/13/17 20:30 Sputum Culture - Preliminary Sputum Methicillin Resistant S.aureus Fungal Elements - Clinical Findings Intake & Output: Intake & Output 11/17/17 11/18/17 11/18/17 23:59 07:59 15:59 Intake Total 404 / 404 273.7 / 273.7 Output Total 35 / 35 0 / 0 Balance 369 / 369 273.7 / 273.7 Weight 58.4 kg Consult Discharge Plan - Plan Referrals: Jeromy Wall MD [Primary Care Provider] - - Attending Attestation I examined this patient and my medical decision-making was reviewed with the Resident Physician. I agree with the documented findings, disposition and treatment plan as described except to the extent set forth below. Patient seen and examined. Labs, radiology, chart personally reviewed. Agree with resident's history and physical, assessment, plan with following comments: PARKING ASSISTANT: Patient follows commands, Pulmonary: Acceptable oxygenation and ventilation on noninvasive ventilation. Cardiovascular: stable and cardiology follow-up GI: Nutrition per dietary and GI prophylaxis per routine. Patient nutrition has been an issue since his barely able to come off BiPAP. Heme: DVT prophylaxis per routine. Oncology has seen the patient. ID: Continue antibiotics and plan to de-escalation Renal; urine out put and renal funtion reviewed Endorcine: blood glucose is monitored Lines: all lines checked and no evidence of infections Skin: skin care to prevent pressure ulcers per nursing routine care Appreciate palliative care assistance and his CODE STATUS appropriately was changed. Overall prognosis is poor. <Nando Sumner - Last Filed: 11/18/17 10:39> Date of Encounter: 11/18/17 Time of Encounter: 10:00 Assessment and Plan (1) Acute and chronic respiratory failure ([id number]) Current Visit: No Status: Acute Multifactorial respiratory failure -Currently on BiPAP -Poor prognosis; CODE STATUS has been updated to DNR CCA DNI Qualifiers: Respiratory failure complication: hypoxia Qualified Code(s): J96.21 - Acute and chronic respiratory failure with hypoxia (2) CHF (congestive heart failure) Current Visit: No Status: Chronic Known history of CHF Qualifiers: Congestive heart failure type: unspecified congestive heart failure type Congestive heart failure chronicity: acute on chronic Qualified Code(s): I50.9 - Heart failure, unspecified (3) COPD (chronic obstructive pulmonary disease) Current Visit: No Status: Chronic Qualifiers: COPD type: COPD with acute exacerbation Qualified Code(s): J44.1 - Chronic obstructive pulmonary disease with (acute) exacerbation (4) ESRD (end stage renal disease) Current Visit: No Status: Chronic (5) HCAP (healthcare-associated pneumonia) Current Visit: No Status: Acute Continue broad spectrum abx Subjective Principal diagnosis: ESRD, lung CA, severe MR, a.flutter RVR Interval history: Patient was seen and examined at bedside this morning. Patient is currently on BiPAP. Does not appear to be in any acute distress. Denies having any complaints at this time. Objective PUL Vital signs: Last Vital Signs Temp 98.4 F 11/18/17 07:25 Pulse 94 11/18/17 09:00 Resp 22 11/18/17 09:00 BP 77/58 11/18/17 09:00 Pulse Ox 94 11/18/17 09:00 General appearance: no acute distress Eyes: nonicteric ENT: oropharynx moist Auscultation: bilateral: wheezes, rales, rhonchi Cardiovascular: other (tachycardic) normal mental status Results - Laboratory Findings CBC and BMP: 11/18/17 04:10 11/18/17 04:10 ABG ABG pH 7.40 pH Units (7.32-7.45) 11/17/17 22:24 ABG pCO2 40 mmHg (35-45) 11/17/17 22:24 ABG pO2 76 mmHg (85-104) L 11/17/17 22:24 ABG O2 Saturation 95 % (95-98) 11/17/17 22:24 PT/INR, D-dimer PT 27.7 Seconds (9.4-12.1) H 11/17/17 05:20 Abnormal lab findings: Abnormal lab results WBC 11.2 K/mcL (4.3-11.1) H 11/18/17 04:10 RBC 3.13 M/mcL (4.19-5.50) L 11/18/17 04:10 Hgb 9.2 g/dL (12.9-16.9) L 11/18/17 04:10 Hct 29.7 % (37.5-50.1) L 11/18/17 04:10 MCHC 31.0 g/dL (31.6-35.5) L 11/18/17 04:10 RDW 18.8 % (11.5-14.5) H 11/18/17 04:10 MPV 12.5 fL (9.4-12.4) H 11/18/17 04:10 Neutrophils # 10.7 K/mcL (1.6-8.9) H 11/18/17 04:10 Lymphocytes # 0.2 K/mcL (0.6-4.6) L 11/18/17 04:10 Nucleated RBCs/100 WBC 0.4 /100 WBC (0) H 11/15/17 03:40 Large Platelets Present (Not Present) A 11/17/17 22:32 Immature Plt Fraction 10.2 % (1.1-6.1) H 11/17/17 22:32 Hypochromasia Present (Not Present) A 11/17/17 22:32 Poikilocytosis 2+ (Not Present) A 11/17/17 22:32 Anisocytosis 1+ (Not Present) A 11/18/17 04:10 Microcytosis Present (Not Present) A 11/17/17 05:20 Macrocytosis Present (Not Present) A 11/16/17 04:20 Target Cells 1+ (Not Present) A 11/17/17 22:32 Tear Drop Cells 1+ (Not Present) A 11/17/17 05:20 Ovalocytes 1+ (Not Present) A 11/17/17 22:32 Acanthocytes (Spur) 2+ (Not Present) A 11/16/17 04:20 PT 27.7 Seconds (9.4-12.1) H 11/17/17 05:20 ABG pO2 76 mmHg (85-104) L 11/17/17 22:24 Potassium 5.4 mEq/L (3.5-5.1) H 11/18/17 04:10 Chloride 93 mEq/L (98-107) L 11/18/17 04:10 BUN 81 mg/dL (6-20) H 11/18/17 04:10 Creatinine 5.04 mg/dL (0.70-1.30) H 11/18/17 04:10 Est GFR ( Amer) 14 (> 60) L 11/18/17 04:10 Est GFR (Non-Af Amer) 12 (> 60) L 11/18/17 04:10 Glucose 168 mg/dL (70-105) H 11/18/17 04:10 POC Glucose 149 (58-89) H 11/18/17 01:16 Calculated Osmolality 314 (280-300) H 11/18/17 04:10 Phosphorus 9.7 mg/dL (2.7-4.5) H 11/14/17 03:42 Iron 27 mcg/dL (65-175) L 11/14/17 03:42 % Saturation 15 % (20-55) L 11/14/17 03:42 Transferrin 127 mg/dL (203-362) L 11/14/17 03:42 Ferritin > 1350 ng/ml (20-250) H 11/14/17 03:42 Alkaline Phosphatase 138 Units/L (34-104) H 11/12/17 12:43 Troponin I 0.21 ng/mL (< 0.04) H* 11/17/17 07:48 B-Natriuretic Peptide 2051 pg/mL (Less than 100) H 11/15/17 03:40 Albumin 3.1 g/dL (3.5-5.7) L 11/14/17 03:42 25-OH Vitamin D Total 28 ng/mL (30-80) L 11/14/17 03:42 Folate 26.0 ng/mL (3.0-16.0) H 11/14/17 03:42 Hep Bs Antigen Reactive (Nonreactive) H 11/10/17 09:35 Entero/Rhino (PCR) DETECTED (Not Detect) A 11/10/17 04:30 - Microbiology Findings Microbiology Findings: Microbiology, Last 48 Hours 11/13/17 20:30 Sputum Culture - Preliminary Sputum Methicillin Resistant S.aureus Fungal Elements - Clinical Findings Intake & Output: Intake & Output 11/17/17 11/18/17 11/18/17 23:59 07:59 15:59 Intake Total 404 / 404 273.7 / 273.7 Output Total 35 / 35 0 / 0 Balance 369 / 369 273.7 / 273.7 Weight 58.4 kg - VTE Documentation of Mechanical Device: Graduated compression elastic hosiery
[2017-11-18] MEDS: Budesonide/Formoterol 160/4.5 MDI IH SCH ×2 (10:10→21:16)
--- NOTE | 2017-11-18 10:26 | Cardiology Progress Note ---
Date of Encounter: 11/18/17 Time of Encounter: 10:00 Assessment and Plan (1) Lung cancer Current Visit: No Status: Chronic Per cardiology: Known lung CA. Oncology following. Appreciate palliative care assistance. Now DNR/DNI/CCA. Qualifiers: Qualified Code(s): C34.01 - Malignant neoplasm of right main bronchus (2) Acute exacerbation of chronic obstructive airways disease Current Visit: No Status: Acute Per cardiology: Admitted with COPD exacerbation. Rhino virus positive. Currently extubated, on BiPap. Management per pulmonary service. Appears stable, however resp status tenuous---requires constant BiPap. (3) Atrial flutter with rapid ventricular response Current Visit: Yes Status: Acute Per Cardiology: Currently afib 90's-110's. Appears slightly improved with dialysis and amio. Suspect pulmonary status driving tachycardia. Will be difficult to control HR given pulmonary issues. S/p amio IV load, now on Amio 200mg PO BID, Cardizem CD 240mg PO daily and Toprol XL 25mg PO daily. On Coumadin for AC. INR 2.5. H&H downward trend, monitor closely. Discussed with Dr. Grant, will s/o, re-consult PRN. All questions answered. (4) Elevated troponin Current Visit: No Status: Acute Per Cardiology: Peak trop 0.22 in the setting of CKD, COPD, afib RVR. Has chronically elevated troponins. ECG with ST segment depression in lateral leads (unchanged from previous ECG when in a.flutter RVR). Known history of CAD with [facility] 2015: * Left Main Coronary Artery The LMCA is angiographically free of disease. * Left Anterior Descending There is a 70% stenosis in the Proximal LAD. The lesion has severely calcification noted. There is a 100% stenosis in the Mid LAD. The lesion has collaterals which feed from left to right and right to left * Circumflex There is a 100% stenosis in the Proximal Circumflex. Distribution supplied by collaterals from FLORES mid LAD and RCA. * Right Coronary Artery There is a 100% stenosis in the Proximal RCA. The lesion has mature collaterals which feed from right to right and right to left feeding the Circumflex. Additional Findings: Grafts * The left internal mammary graft to the Mid LAD is patent. Provides collateralls to OM1 * The saphenous vein graft to the Right PDA is occluded. * The saphenous vein graft to the 1st Marginal is occluded. CP free. Do not suspect NSTEMI, suspect demand ischemia related to above. On asa , statin, beta corina. Has Shellfish allergy. (5) Severe mitral regurgitation Current Visit: No Status: Chronic Per cardiology: Known severe MR per RBUENS 03/2017. Patient previously referred to [place] outpatient for evaluation by Dr. Esteban 03/2017 for mitralclip per review of records. Medical records received from [place] from August 2017. RUBENS performed and did show severe MR. No records noted regarding cardiology or CT surgery recommendations regarding valve. Patient has decided to become DNR/DNI/ CCA. (6) Cardiomyopathy Current Visit: No Status: Chronic Per cardiology: Known cardiomyopathy LVEF 45% on echo 08/2017. On beta corina. Had been on joelle inhibitor outpatient. Now held due to hypotension-- resume when/if able. Euvolemic on exam. Net I&O -3946ml. On hemodialysis. Strict I&Os, daily weights , continue HD per nephrology. Qualifiers: Qualified Code(s): I42.9 - Cardiomyopathy, unspecified (7) ESRD (end stage renal disease) on dialysis Current Visit: No Status: Chronic Per Cardiology: Known ESRD on HD. Nephrology following. Discussion w patient/family: The assessment and plan as outlined above was discussed with the patient who expressed understanding and agreement. All questions were answered. Thank you for involving us in the care of your patient. Please call with any questions. Subjective Principal diagnosis: ESRD, lung CA, severe MR, a.flutter RVR Interval history: Patient denies any new concerns or complaints overnight. Reports continues to experience shortness of breath worse with removal of BiPAP. He denies any chest pain or palpitations. No family at bedside today. He confirms his wishes to be DNR/DNI/Comfort Care arrest. He reports and family aware as well. Objective Vital Signs, Last 4 Hours Temp Pulse Resp BP Pulse Ox 11/18/17 10:00 101 24 87/60 93 11/18/17 09:00 94 22 77/58 94 11/18/17 08:00 103 22 86/59 96 11/18/17 07:39 115 11/18/17 07:25 98.4 F 11/18/17 07:00 115 22 92/65 96 General: Conversant HEENT: Atraumatic, Normocephaly Cardiac: Other (Irregularly irregular) Lungs: Other (Course scattered rhonchi throughout, conversational dyspnea noted , respirations mildly labored at rest) Neuro: Alert and responsive, No focal deficits noted Skin: No rashes noted on visualized skin Extremities: No Edema Results 11/18/17 04:10 11/18/17 04:10 Lab Results - EKG Interpretation EKG results cardiology: other (Remains A. fib with RVR with average heart rate on telemetry the past 12 hours = 107, currently afib 90's-110's) - VTE Documentation of Mechanical Device: Graduated compression elastic hosiery Consult Discharge Plan - Plan Referrals: Jeromy Wall MD [Primary Care Provider] -
--- NOTE | 2017-11-18 10:47 | Nephrology Progress Note ---
Date of Encounter: 11/18/17 Time of Encounter: 10:00 - Assessment and Plan (1) ESRD (end stage renal disease) on dialysis Status: Chronic Will hold off on HD today (Sunday), given his relative hypotension, though MAPs are near 60. Mild hyperkalemia noted and initially had ordered a low dose of Kayexalate, however upon reconsidering his recent vasovagal episodes of hypotension with every bowel movement, I informed the HEALTHCARE LIAISON to cancel the kayexalate. Low K+ diet; pt was reportedly eating [place] yesterday. (2) Hypertension Status: Chronic Episodes of hypotension have limited use of antihypertensive agents, plus this has limited UF from HD. Qualifiers: Hypertension type: essential hypertension Qualified Code(s): I10 - Essential (primary) hypertension (3) Pneumonia Status: Acute Appreciate the ICU team. Qualifiers: Pneumonia type: due to unspecified organism Laterality: right Lung location: upper lobe of lung Qualified Code(s): J18.1 - Lobar pneumonia, unspecified organism (4) Shortness of breath Status: Acute See above (5) Anemia in CKD (chronic kidney disease) Status: Chronic Goal Hgb is 10-11; IV iron and/or FREDIS as needed Qualifiers: Chronic kidney disease stage: on chronic dialysis Qualified Code(s): N18.6 - End stage renal disease; D63.1 - Anemia in chronic kidney disease; D63.1 - Anemia in chronic kidney disease; Z99.2 - Dependence on renal dialysis; Z99.2 - Dependence on renal dialysis; Z99.2 - Dependence on renal dialysis; Z99.2 - Dependence on renal dialysis (6) Atrial flutter Status: Chronic Cardio following. Also has MR Qualifiers: Atrial flutter type: typical Qualified Code(s): I48.3 - Typical atrial flutter (7) Lung cancer Status: Chronic Appreciate Oncology's input Qualifiers: Laterality: right Lung location: hilum of lung Qualified Code(s): C34.01 - Malignant neoplasm of right main bronchus Subjective Principal diagnosis: ESRD, lung CA, severe MR, a.flutter RVR Interval history: Pt was seen/examined this AM. He did not affirm N/V/D. Objective - Vital Signs Vital signs: Vital Signs Temp Pulse Resp BP Pulse Ox 11/18/17 10:00 101 24 87/60 93 11/18/17 09:00 94 22 77/58 94 11/18/17 08:00 103 22 86/59 96 11/18/17 07:39 115 11/18/17 07:25 98.4 F 11/18/17 07:00 115 22 92/65 96 11/18/17 06:00 121 24 108/72 97 11/18/17 05:00 123 22 98/72 98 11/18/17 04:10 26 125/71 93 11/18/17 04:00 123 32 125/71 98 11/18/17 03:36 98.2 F 11/18/17 03:00 97 24 99/55 92 11/18/17 02:00 112 20 75/44 97 11/18/17 01:00 87 14 71/52 98 11/18/17 00:00 95 20 81/46 95 11/17/17 23:19 98.7 F 11/17/17 23:00 105 16 100/54 100 11/17/17 22:23 24 117/74 93 11/17/17 22:00 121 26 98/70 93 11/17/17 21:00 120 28 92/61 99 11/17/17 20:00 104 18 89/60 100 11/17/17 19:00 118 24 96/63 97 11/17/17 18:50 98.7 F 11/17/17 18:00 120 31 88/56 99 11/17/17 17:00 97.7 F 118 26 80/59 97 11/17/17 16:03 97.7 F 11/17/17 16:00 97.7 F 118 26 96/60 97 18 15:49 24 88/56 97 11/17/17 15:00 120 26 83/44 97 11/17/17 14:00 105 22 87/54 99 11/17/17 13:00 98 20 84/68 99 11/17/17 12:25 97.7 F 25 110/81 18 12:05 94/74 11/17/17 12:00 98.4 F 116 26 98/73 97 18 11:50 112/72 11/17/17 11:46 124 11/17/17 11:35 105/73 11/17/17 11:20 108/85 01/20/18 11:05 112/71 11/17/17 11:00 124 21 112/71 98 11/17/17 10:50 110/83 Intake and Output 11/17/17 11/18/17 11/18/17 23:59 07:59 15:59 Intake Total 404 / 404 273.7 / 273.7 Output Total 35 / 35 0 / 0 Balance 369 / 369 273.7 / 273.7 Intake: IV Fluids 404 / 404 273.7 / 273.7 Amiodarone Drip Premix 360mg/ 200 / 200 200mL 360 mg In 200 ml @ 0.5 MG /MIN 16.667 mls/hr IVC CONT [facility] Rx#:[id number] Dextrose 10% Water 500 Ml Ivbag 175 / 175 500 ML @ 25 mls/hr IVC .Q20H [facility] Rx#:[id number] PRECEDEX Premix 400 mcg In 100 4 / 4 12.7 / 12.7 ml @ 0.2 MCG/KG/HR 3.15 mls/hr IVC .Q24H [facility] Rx#:[id number] Levophed 4 MG In Dextrose 5% 36 / 36 250 ML @ 5 MCG/MIN 19.05 mls/hr IVC CONT [facility] Rx#:[id number] Flexbumin 12.5 gm In 50 ml @ 60 50 / 50 mls/hr IVPB ONCE PRN Rx#: [id number] Zosyn Premix 3.375 GM/200 ML 3. 200 / 200 375 gm In 200 ml @ 50 mls/hr IVPB Q12HR [facility] Rx#:[id number] Oral 0 / 0 Output: Urine 0 / 0 0 / 0 Catheter / 35 Other: Weight 58.4 kg Blood Glucose* 140 196 Patient Weight 11/18/17 23:59 Weight 58.4 kg - General Appearance Exam: General appearance: Present: cachectic, chronically ill, fatigue, frail EENT: Present: ATNC, wearing BiPAP mask Neck: Present: supple Respiratory: Present: wheezing, course breath sounds, rhonchi Cardiology: Present: holosystolic murmur, no edema, irregular rhythm, normal S1 , normal S2 Dialysis Vascular Access: Arteriovenous Fistula thrill: Yes bruit: Yes Gastrointestinal: Present: normoactive bowel sounds, no tenderness, no guarding Integumentary: Present: warm and dry, ecchymotic Neurologic: Present: no focal deficit, no asterixis, alert and oriented x3 Musculoskeletal: Present: no erythema, no cyanosis, no clubbing Psychiatric: Present: mood/affect appropriate, cooperative - Lab 11/19/17 03:50 11/19/17 03:50 Most recent lab results ABG pH 7.40 pH Units (7.32-7.45) 11/17/17 22:24 ABG pCO2 40 mmHg (35-45) 11/17/17 22:24 ABG pO2 76 mmHg (85-104) L 11/17/17 22:24 ABG HCO3 25 mEq/L (21-27) 11/17/17 22:24 ABG O2 Saturation 95 % (95-98) 11/17/17 22:24 Calcium 9.2 mg/dL (8.6-10.3) 11/18/17 04:10 Phosphorus 9.7 mg/dL (2.7-4.5) H 11/14/17 03:42 Magnesium 2.2 mg/dL (1.6-2.6) 11/11/17 18:27 - VTE Documentation of Mechanical Device: Graduated compression elastic hosiery Consult Discharge Plan - Plan Instructions: Mitral Regurgitation (DC), Bacterial Pneumonia (DC), End-Stage Kidney Disease (DC) Additional Instructions: Nephrology recommended dialysis at least Sunday with ultrafiltration as needed to improve his respiratory status. Referrals: Jeromy Wall MD [Primary Care Provider] -
[2017-11-18] MEDS: *HR* Acetylcysteine 20% 600 MG/3 ML ORAL SYRINGE PO SCH ×2 (11:51→19:50)
[2017-11-18] MEDS: Calcium Acetate 667 MG CAPSULE PO SCH ×3 (11:51→17:19)
[2017-11-18] MEDS: Metoprolol XL (24 HR) Succ 50 MG TAB.ER.24H PO SCH (11:52)
[2017-11-18] MEDS: Megestrol Acetate 400 MG/10 ML UDC PO SCH (12:03)
[2017-11-18] MEDS: Diltiazem CD (24hr) 240 MG CAPSULE PO SCH (12:03)
[2017-11-18] MEDS: Gabapentin 100 MG CAPSULE PO SCH ×2 (12:04→19:50)
[2017-11-18] MEDS: Renal Vitamin 1 MG CAPSULE PO SCH (12:04)
[2017-11-18] MEDS: *HR* Amiodarone 200 MG TABLET PO SCH ×2 (12:05→19:50)
[2017-11-18 15:09] LABS: Prothrombin Time 49.1 Seconds (9.4-12.1)
[2017-11-18 15:10] LABS: INR 4.4
[2017-11-18 16:16] LABS: INR 4.3; Prothrombin Time 48.1 Seconds (9.4-12.1)
[2017-11-18] MEDS: Fluticasone Propionate Nasal 50 MCG/SPRAY BOTTLE NS SCH (17:19)
[2017-11-18] MEDS: Aspirin 81 MG TAB.CHEW PO SCH (17:19)
[2017-11-18] MEDS: Dexmedetomidine HCl 400 MCG/100 ML MLS IVC SCH (19:55)
[2017-11-18 23:07] LABS: Hematocrit 27.5 % (37.5-50.1); Hemoglobin 8.4 g/dL (12.9-16.9)
[2017-11-19] MEDS: Levalbuterol Neb 1.25 MG/3 ML IH SCH ×3 (03:51→16:34)
[2017-11-19 04:08] LABS: Hemoglobin 8.6 g/dL (12.9-16.9); Immature Granulocytes % 0.6 % (0-4); Lymphocytes # 0.1 K/mcL (0.6-4.6); Mean Corpuscular HGB Conc 30.7 g/dL (31.6-35.5); Mean Corpuscular Volume 94.3 fL (83.0-100.0); Mean Platelet Volume 12.2 fL (9.4-12.4); Monocytes # 0.3 K/mcL (0.0-1.3); Monocytes % 3.9 %; Neutrophils # 6.5 K/mcL (1.6-8.9); Platelet Count 132 K/mcL (140-400); Red Blood Count 2.97 M/mcL (4.19-5.50); Red Cell Distribution Width 18.6 % (11.5-14.5); Segmented Neutrophils % 93.5 %
[2017-11-19 04:21] LABS: Calcium 8.6 mg/dL (8.6-10.3); Potassium 5.4 mEq/L (3.5-5.1)
[2017-11-19] MEDS ORDERED: 0.9 % Sodium Chloride 250 ML ONE ×2 (04:34→12:39)
[2017-11-19] MEDS: Insulin LISPRO 300 UNITS/3 ML VIAL SQ SCH ×3 (04:35→18:07)
[2017-11-19] MEDS: *HR* OxyCODONE Immed Rel 15 MG TABLET PO PRN ×2 (04:36→16:48)
[2017-11-19 05:17] LABS: INR 5.4; Prothrombin Time 59.8 Seconds (9.4-12.1)
[2017-11-19] MEDS: Famotidine 20 MG/2 ML VIAL IVP SCH ×2 (06:36→16:21)
[2017-11-19] MEDS: MethylPREDNISolone 40 MG/ML VIAL IVP SCH (06:36)
[2017-11-19] MEDS: Piperacillin/Tazobactam 3.375 GM/200 ML BAG IVPB SCH ×2 (06:37→18:07)
[2017-11-19] MEDS ORDERED: 0.9 % Sodium Chloride 250 ML IVC PRN (06:52)
[2017-11-19] MEDS ORDERED: Vancomycin 500 MG in 0.9 % Sodium Chloride Mini Bag 100 ML IVPB ONE ×2 (07:00→18:30)
[2017-11-19] MEDS ORDERED: Vancomycin 500 MG in D5% in Water 100 ML IVPB ONE (07:00)
--- NOTE | 2017-11-19 07:12 | Pulmonology Progress Note ---
<Anshu Sky - Last Filed: 11/19/17 11:46> Date of Encounter: 11/19/17 Time of Encounter: 07:12 Assessment and Plan (1) Acute and chronic respiratory failure with hypoxia Current Visit: Yes Status: Acute Patient was extubated 5 days ago Required BiPAP throughout the day with precedex Did not receive HD over the weekend with hypotension Nephro to plan for HD today Repeat CXR relatively unchanged with mild increase in opacity in left lower lobe Lactic acid pending Patient is high risk and will continue to monitor closely throughout the day penitentiary planning: After discussion with and son at bedside, they agree to continue aggressive intervention and push for transfer to [place] pending availability (2) Hypotension Current Visit: Yes Status: Acute Blood pressure dropping Back on Levo @5 Increasing Midodrine to 5 TID Will continue to monitor closely Qualifiers: Hypotension type: unspecified hypotension type Qualified Code(s): I95.9 - Hypotension, unspecified (3) Systolic CHF Current Visit: Yes Status: Acute ECHO from August 2017 showed ejection fraction of 45%, moderate to severe eccentric mitral regurgitation and moderate pulmonary hypertension. CXR post-intubation demonstrated cardiomegaly with mild worsening vascular congestion consistent with CHF History of CAD s/p CABG 2008 and [facility] 2014 Holding fluids Will need HD today - per Nephro Qualifiers: Congestive heart failure chronicity: chronic Qualified Code(s): I50.22 - Chronic systolic (congestive) heart failure (4) Cardiomyopathy Current Visit: No Status: Chronic Cardiology following - appreciate recommendations History of CAD s/p CABG 2008 [facility] 2014; see cardio note Most recent ECHO from August 2017 showed ejection fraction of 45%, moderate to severe eccentric mitral regurgitation and moderate pulmonary hypertension Continue optimal medical management at this time with aspirin, statin, beta corina Cardiology looked into his case further and found possible consult to a tertiary center for his severe MR but unknown disposition from [place] for possible treatment options for his severe MR. Qualifiers: Cardiomyopathy type: unspecified Qualified Code(s): I42.9 - Cardiomyopathy , unspecified (5) Acute exacerbation of chronic obstructive airways disease Current Visit: No Status: Acute Continue present regimen with IV Abx, solu-medrol (decreasing to q24) and bronchodilators (6) Community acquired pneumonia Current Visit: No Status: Acute CT showed left lower lung and lingula opacity Sputum culture showing staph aureus and fungal elements Currently on Vancomycin and Zosyn for broad coverage Continue Solu-Medrol 40q12 Xopenex q6hrs LIDA Qualifiers: Laterality: right Lung location: unspecified part of lung Qualified Code( s): J18.9 - Pneumonia, unspecified organism (7) HTN (hypertension) Current Visit: No Status: Chronic Qualifiers: Hypertension type: essential hypertension Qualified Code(s): I10 - Essential (primary) hypertension (8) Leukocytosis Current Visit: No Status: Resolved Resolved Qualifiers: Leukocytosis type: unspecified Qualified Code(s): D72.829 - Elevated white blood cell count, unspecified (9) ESRD (end stage renal disease) Current Visit: No Status: Chronic Follows with Dr. Wells as outpatient Creatinine 5.04 - > 6.3 Management per nephrology team HD today (10) Atrial flutter Current Visit: No Status: Chronic Cardiology and primary team managing HR stable on Toprol 25 qd and Cardizem 240 qd Heart rate currently in the 120s Transtioned Amio to PO over the weekend Qualifiers: Atrial flutter type: typical Qualified Code(s): I48.3 - Typical atrial flutter (11) Acute bronchitis due to Rhinovirus Current Visit: No Status: Acute Respiratory Panel positive for rhinovirus Continued droplet precautions (12) DVT prophylaxis Current Visit: No Status: Acute Holding coumadin, INR 5.4 Subjective Principal diagnosis: ESRD, lung CA, severe MR, a.flutter RVR Interval history: Patient is admitted for acute on chronic respiratory failure with hypoxia secondary to COPD exacerbation and pneumonia Extubated 5 days ago Patient is resting comfortably and tolerating BiPAP He has no new concerns at this time No overnight events Had 1-2kg of UF Sunday and no nephro intervention yesterday Code status and disposition for possible transfer discussion with today Objective PUL Vital signs: Last Vital Signs Temp 97.5 F L 11/19/17 04:43 Pulse 118 11/19/17 06:00 Resp 20 11/19/17 06:00 BP 91/69 11/19/17 06:00 Pulse Ox 92 11/19/17 06:00 General appearance: no acute distress Eyes: nonicteric ENT: oropharynx dry Neck: supple Effort: normal Auscultation: bilateral: diminished breath sounds (crackles) Cardiovascular: irregular rhythm Gastrointestinal: normoactive bowel sounds, non-distended Integumentary: normal Extremities: no cyanosis, no edema, no clubbing Musculoskeletal: no deformities normal mental status, non-focal exam mood appropriate, affect normal Results - Laboratory Findings CBC and BMP: 11/19/17 03:50 11/19/17 03:50 ABG ABG pH 7.40 pH Units (7.32-7.45) 11/17/17 22:24 ABG pCO2 40 mmHg (35-45) 11/17/17 22:24 ABG pO2 76 mmHg (85-104) L 11/17/17 22:24 ABG O2 Saturation 95 % (95-98) 11/17/17 22:24 PT/INR, D-dimer PT 59.8 Seconds (9.4-12.1) H* 11/19/17 04:52 Abnormal lab findings: Abnormal lab results RBC 2.97 M/mcL (4.19-5.50) L 11/19/17 03:50 Hgb 8.6 g/dL (12.9-16.9) L 11/19/17 03:50 Hct 28.0 % (37.5-50.1) L 11/19/17 03:50 MCHC 30.7 g/dL (31.6-35.5) L 11/19/17 03:50 RDW 18.6 % (11.5-14.5) H 11/19/17 03:50 Plt Count 132 K/mcL (140-400) L 11/19/17 03:50 Lymphocytes # 0.1 K/mcL (0.6-4.6) L 11/19/17 03:50 Nucleated RBCs/100 WBC 0.4 /100 WBC (0) H 11/15/17 03:40 Large Platelets Present (Not Present) A 11/17/17 22:32 Immature Plt Fraction 10.2 % (1.1-6.1) H 11/17/17 22:32 Hypochromasia Present (Not Present) A 11/17/17 22:32 Poikilocytosis 2+ (Not Present) A 11/17/17 22:32 Anisocytosis 1+ (Not Present) A 11/18/17 04:10 Microcytosis Present (Not Present) A 11/17/17 05:20 Macrocytosis Present (Not Present) A 11/16/17 04:20 Target Cells 1+ (Not Present) A 11/17/17 22:32 Tear Drop Cells 1+ (Not Present) A 11/17/17 05:20 Ovalocytes 1+ (Not Present) A 11/17/17 22:32 Acanthocytes (Spur) 2+ (Not Present) A 11/16/17 04:20 PT 59.8 Seconds (9.4-12.1) H* 11/19/17 04:52 INR 5.4 H* 11/19/17 04:52 ABG pO2 76 mmHg (85-104) L 11/17/17 22:24 Potassium 5.4 mEq/L (3.5-5.1) H 11/19/17 03:50 Chloride 95 mEq/L (98-107) L 11/19/17 03:50 Carbon Dioxide 22 mEq/L (23-29) L 11/19/17 03:50 BUN 102 mg/dL (6-20) H 11/19/17 03:50 Creatinine 6.30 mg/dL (0.70-1.30) H 11/19/17 03:50 Est GFR ( Amer) 11 (> 60) L 11/19/17 03:50 Est GFR (Non-Af Amer) 9 (> 60) L 11/19/17 03:50 Glucose 124 mg/dL (70-105) H 11/19/17 03:50 POC Glucose 251 (58-89) H 11/18/17 23:21 Calculated Osmolality 315 (280-300) H 11/19/17 03:50 Phosphorus 9.7 mg/dL (2.7-4.5) H 11/14/17 03:42 Iron 27 mcg/dL (65-175) L 11/14/17 03:42 % Saturation 15 % (20-55) L 11/14/17 03:42 Transferrin 127 mg/dL (203-362) L 11/14/17 03:42 Ferritin > 1350 ng/ml (20-250) H 11/14/17 03:42 Alkaline Phosphatase 138 Units/L (34-104) H 11/12/17 12:43 Troponin I 0.21 ng/mL (< 0.04) H* 11/17/17 07:48 B-Natriuretic Peptide 2051 pg/mL (Less than 100) H 11/15/17 03:40 Albumin 3.1 g/dL (3.5-5.7) L 11/14/17 03:42 25-OH Vitamin D Total 28 ng/mL (30-80) L 11/14/17 03:42 Folate 26.0 ng/mL (3.0-16.0) H 11/14/17 03:42 Hep Bs Antigen Reactive (Nonreactive) H 11/10/17 09:35 Entero/Rhino (PCR) DETECTED (Not Detect) A 11/10/17 04:30 - Microbiology Findings Microbiology Findings: Microbiology, Last 48 Hours 11/13/17 20:30 Sputum Culture - Preliminary Sputum Methicillin Resistant S.aureus Fungal Elements - Clinical Findings Intake & Output: Intake & Output 11/18/17 11/18/17 11/19/17 15:59 23:59 07:59 Intake Total 250 / 250 873.3 / 873.3 550 / 550 Output Total 0 / 0 Balance 250 / 250 873.3 / 873.3 550 / 550 Weight 61 kg - VTE Documentation of Mechanical Device: Graduated compression elastic hosiery Consult Discharge Plan - Plan Referrals: Jeromy Wall MD [Primary Care Provider] - <Ezequiel Perla W - Last Filed: 11/19/17 11:54> Date of Encounter: 11/19/17 Objective PUL Vital signs: Last Vital Signs Temp 98.3 F 11/19/17 07:00 Pulse 122 11/19/17 09:00 Resp 24 11/19/17 09:00 BP 90/53 11/19/17 09:00 Pulse Ox 98 11/19/17 09:00 Results - Laboratory Findings CBC and BMP: 11/19/17 03:50 11/19/17 03:50 ABG ABG pH 7.40 pH Units (7.32-7.45) 11/17/17 22:24 ABG pCO2 40 mmHg (35-45) 11/17/17 22:24 ABG pO2 76 mmHg (85-104) L 11/17/17 22:24 ABG O2 Saturation 95 % (95-98) 11/17/17 22:24 PT/INR, D-dimer PT 59.8 Seconds (9.4-12.1) H* 11/19/17 04:52 Abnormal lab findings: Abnormal lab results RBC 2.97 M/mcL (4.19-5.50) L 11/19/17 03:50 Hgb 8.6 g/dL (12.9-16.9) L 11/19/17 03:50 Hct 28.0 % (37.5-50.1) L 11/19/17 03:50 MCHC 30.7 g/dL (31.6-35.5) L 11/19/17 03:50 RDW 18.6 % (11.5-14.5) H 11/19/17 03:50 Plt Count 132 K/mcL (140-400) L 11/19/17 03:50 Lymphocytes # 0.1 K/mcL (0.6-4.6) L 11/19/17 03:50 Nucleated RBCs/100 WBC 0.4 /100 WBC (0) H 11/15/17 03:40 Large Platelets Present (Not Present) A 11/17/17 22:32 Immature Plt Fraction 10.2 % (1.1-6.1) H 11/17/17 22:32 Hypochromasia Present (Not Present) A 11/17/17 22:32 Poikilocytosis 2+ (Not Present) A 11/17/17 22:32 Anisocytosis 1+ (Not Present) A 11/18/17 04:10 Microcytosis Present (Not Present) A 11/17/17 05:20 Macrocytosis Present (Not Present) A 11/16/17 04:20 Target Cells 1+ (Not Present) A 11/17/17 22:32 Tear Drop Cells 1+ (Not Present) A 11/17/17 05:20 Ovalocytes 1+ (Not Present) A 11/17/17 22:32 Acanthocytes (Spur) 2+ (Not Present) A 11/16/17 04:20 PT 59.8 Seconds (9.4-12.1) H* 11/19/17 04:52 INR 5.4 H* 11/19/17 04:52 ABG pO2 76 mmHg (85-104) L 11/17/17 22:24 Potassium 5.4 mEq/L (3.5-5.1) H 11/19/17 03:50 Chloride 95 mEq/L (98-107) L 11/19/17 03:50 Carbon Dioxide 22 mEq/L (23-29) L 11/19/17 03:50 BUN 102 mg/dL (6-20) H 11/19/17 03:50 Creatinine 6.30 mg/dL (0.70-1.30) H 11/19/17 03:50 Est GFR ( Amer) 11 (> 60) L 11/19/17 03:50 Est GFR (Non-Af Amer) 9 (> 60) L 11/19/17 03:50 Glucose 124 mg/dL (70-105) H 11/19/17 03:50 POC Glucose 251 (58-89) H 11/18/17 23:21 Calculated Osmolality 315 (280-300) H 11/19/17 03:50 Phosphorus 9.7 mg/dL (2.7-4.5) H 11/14/17 03:42 Iron 27 mcg/dL (65-175) L 11/14/17 03:42 % Saturation 15 % (20-55) L 11/14/17 03:42 Transferrin 127 mg/dL (203-362) L 11/14/17 03:42 Ferritin > 1350 ng/ml (20-250) H 11/14/17 03:42 Alkaline Phosphatase 138 Units/L (34-104) H 11/12/17 12:43 Troponin I 0.21 ng/mL (< 0.04) H* 11/17/17 07:48 B-Natriuretic Peptide 2051 pg/mL (Less than 100) H 11/15/17 03:40 Albumin 3.1 g/dL (3.5-5.7) L 11/14/17 03:42 25-OH Vitamin D Total 28 ng/mL (30-80) L 11/14/17 03:42 Folate 26.0 ng/mL (3.0-16.0) H 11/14/17 03:42 Hep Bs Antigen Reactive (Nonreactive) H 11/10/17 09:35 Entero/Rhino (PCR) DETECTED (Not Detect) A 11/10/17 04:30 - Microbiology Findings Microbiology Findings: Microbiology, Last 48 Hours 11/13/17 20:30 Sputum Culture - Preliminary Sputum Methicillin Resistant S.aureus Fungal Elements - Clinical Findings Intake & Output: Intake & Output 11/18/17 11/19/17 11/19/17 23:59 07:59 15:59 Intake Total 873.3 / 873.3 550 / 550 250 / 250 Output Total 0 / 0 Balance 873.3 / 873.3 550 / 550 250 / 250 Weight 61 kg - Attending Attestation I examined this patient and my medical decision-making was reviewed with the Resident Physician. I agree with the documented findings, disposition and treatment plan as described except to the extent set forth below. We independently had [id number] contact with the patient I spent 33min of Critical Care time with this patient. It involved decision making of high complexity to assess, manipulate, and support vital organ system failure and/or to prevent further life threatening deterioration of the patient' s condition. The time involved in the performance of separately reportable procedures was not counted toward critical care time. Patient seen and examined at bedside Labs, radiology, chart personally reviewed. Management was reviewed during multidisciplinary critical care rounds. [employer]:Awake and alert. High risk for delirium cont to monitor and avoid [employer] depressants and sensory deprivation. Pulm: Acute on Chronic Rspiratory failure requring NIPPV. Acceptable gas exchange today. Cards: Chronic Heart failure complicated by CAD and CHF with Mitral valve disease. AFIB rate controlled cont amiodarone. Cardiology following. Chronic Hypotension multifactorial levophed as needed to to keep MAP around 60. Check Lactate. FEN-GI:NPO for now on Bipap. Renal:ESRD dialysis today. Cont midodinre ID: Treating for PNA including Heme/Onc: High INR today holding warfarin for afib. H/H stable. History of advanced Lung CA Endo: Glucose Monitored Integ/MSK: Skin Care per routine ICU Nursing Protocol to prevent ulcers. Lines: All lines examined without evidence of infection : Dispo: Remain in ICU CODE:Full Code Palliative care following. I met at the patient's bedside with his and son ICU nurse and resident physician present. And had a candid discussion about overall prognosis and goals of care. From his 's (and POA ) perspective which was echoed by the patient they want to "beat this" when I tried to discuss further with this meant a said they want to get him the hospital return home to quality of life prior to his admission. I explained all of her goals were to get him as good as possible with the understanding that he has multiple medical comorbidities that are impairing that and his overall prognosis remains poor. They had a much more sanguine overview of his chronic health conditions and were under the impression that he had "beat his cancer" check explained it appeared to be a temporary remission without radiographic progression but that overall prognosis from this was still poor per oncology note. They again brought up the possibility of valve repair for his severe mitral valve regurgitation I explained that while there is no doubt my mind that if he was a candidate for this this would improve his overall medical state however I did not think that this and of itself would dramatically improve his overall prognosis and in the short-term could likely not be amenable to repair. The had requested a second opinion in [place] either at [facility] or at [facility] both of which I have contacted to facilitate this however I was very clear that I did not think that transfer was absolutely necessary and that there may be a limitation on what could be provided at any facility.
[2017-11-19] MEDS: Megestrol Acetate 400 MG/10 ML UDC PO SCH (08:08)
[2017-11-19] MEDS: Renal Vitamin 1 MG CAPSULE PO SCH (08:09)
[2017-11-19] MEDS: Calcium Acetate 667 MG CAPSULE PO SCH ×3 (08:09→16:22)
[2017-11-19] MEDS: Aspirin 81 MG TAB.CHEW PO SCH (08:09)
[2017-11-19] MEDS: *HR* Amiodarone 200 MG TABLET PO SCH (08:09)
[2017-11-19] MEDS: *HR* Acetylcysteine 20% 600 MG/3 ML ORAL SYRINGE PO SCH (08:14)
[2017-11-19] MEDS: Gabapentin 100 MG CAPSULE PO SCH (08:28)
[2017-11-19] MEDS: Fluticasone Propionate Nasal 50 MCG/SPRAY BOTTLE NS SCH (08:28)
[2017-11-19] MEDS: Diltiazem CD (24hr) 240 MG CAPSULE PO SCH (08:28)
[2017-11-19] MEDS: Metoprolol XL (24 HR) Succ 50 MG TAB.ER.24H PO SCH (08:28)
[2017-11-19] MEDS: Budesonide/Formoterol 160/4.5 MDI IH SCH (09:56)
--- NOTE | 2017-11-19 12:01 | Nephrology Progress Note ---
Date of Encounter: 11/19/17 Time of Encounter: 08:40 - Assessment and Plan (1) ESRD (end stage renal disease) on dialysis Status: Chronic HD recommended today (Sunday) with further UF which may help improve his respiratory status indirectly. With his lung Ca hx and frequent hospitalizations plus the sum of his other comorbidities (Mv disease, intrinsic coagulopathy, etc), I counseled him about the options for palliation. Agree with Palliative Care consult. Discussed with the ICU team. (2) Pneumonia Status: Acute Appreciate the ICU team. Qualifiers: Pneumonia type: due to unspecified organism Laterality: right Lung location: upper lobe of lung Qualified Code(s): J18.1 - Lobar pneumonia, unspecified organism (3) Shortness of breath Status: Acute See above (4) Anemia in CKD (chronic kidney disease) Status: Chronic Goal Hgb is 10-11; IV iron and/or FREDIS as needed Qualifiers: Chronic kidney disease stage: on chronic dialysis Qualified Code(s): N18.6 - End stage renal disease; D63.1 - Anemia in chronic kidney disease; D63.1 - Anemia in chronic kidney disease; Z99.2 - Dependence on renal dialysis; Z99.2 - Dependence on renal dialysis; Z99.2 - Dependence on renal dialysis; Z99.2 - Dependence on renal dialysis (5) Atrial flutter Status: Chronic Cardio following. Also has MR Qualifiers: Atrial flutter type: typical Qualified Code(s): I48.3 - Typical atrial flutter (6) Lung cancer Status: Chronic Appreciate Oncology's input Qualifiers: Laterality: right Lung location: hilum of lung Qualified Code(s): C34.01 - Malignant neoplasm of right main bronchus Subjective Principal diagnosis: ESRD, lung CA, severe MR, a.flutter RVR Interval history: Pt was seen/examined this AM. He did not affirm N/V/D. Per report his wants him to remain a full code and is requesting more surgerical options of his mitral valve. Objective - Vital Signs Vital signs: Vital Signs Temp Pulse Resp BP Pulse Ox 11/19/17 11:46 107 11/19/17 11:00 107 24 100/62 94 11/19/17 10:15 121 22 105/70 95 11/19/17 09:56 24 90/53 92 11/19/17 09:00 122 24 90/53 98 11/19/17 08:00 123 22 101/69 99 11/19/17 07:57 123 11/19/17 07:00 98.3 F 120 20 98/75 93 11/19/17 06:00 118 20 91/69 92 11/19/17 05:00 108 18 89/59 92 11/19/17 04:43 97.5 F L 11/19/17 04:00 123 23 103/71 100 11/19/17 03:52 39 96 11/19/17 03:00 118 20 89/69 98 11/19/17 02:00 96 20 91/64 97 11/19/17 01:00 105 18 104/56 96 11/19/17 00:00 98.4 F 106 24 88/65 93 11/18/17 23:43 19 94 11/18/17 23:00 105 26 85/68 94 11/18/17 22:00 105 16 94/64 96 11/18/17 21:17 26 99 11/18/17 21:00 118 30 91/65 97 11/18/17 20:12 98 F 11/18/17 20:00 120 24 103/67 97 11/18/17 19:00 121 22 86/58 99 11/18/17 18:00 86 24 79/59 92 11/18/17 17:16 25 73/60 95 11/18/17 17:00 95 26 73/60 99 11/18/17 16:00 118 24 94/58 99 11/18/17 15:00 98.5 F 120 24 86/66 99 11/18/17 14:00 115 24 87/62 99 11/18/17 13:00 115 24 104/39 95 11/18/17 12:41 98.9 F Intake and Output 11/18/17 11/19/17 11/19/17 23:59 07:59 15:59 Intake Total 873.3 / 873.3 550 / 550 700 / 700 Output Total 0 / 0 0 / 0 Balance 873.3 / 873.3 550 / 550 700 / 700 Intake: IV Fluids 283.3 / 283.3 250 / 250 200 / 200 PRECEDEX Premix 400 mcg In 100 83.3 / 83.3 ml @ 0.2 MCG/KG/HR 3.15 mls/hr IVC .Q24H [facility] Rx#:[id number] Levophed 4 MG In Dextrose 5% 0 / 0 250 ML @ 5 MCG/MIN 19.05 mls/hr IVC CONT [facility] Rx#:[id number] Zosyn Premix 3.375 GM/200 ML 3. 200 / 200 200 / 200 375 gm In 200 ml @ 50 mls/hr IVPB Q12HR [facility] Rx#:[id number] Oral 590 / 590 300 / 300 500 / 500 Output: Urine 0 / 0 0 / 0 Other: Meal Michael Qureshi Weight 61 kg 61 kg Blood Glucose* 276 251 148 Patient Weight 11/19/17 23:59 Weight 61 kg - General Appearance Exam: General appearance: Present: cachectic, chronically ill, fatigue, frail EENT: Present: ATNC, wearing O2 face mask Neck: Present: supple Respiratory: Present: wheezing, course breath sounds, rhonchi Cardiology: Present: holosystolic murmur, no edema, irregular rhythm, normal S1 , normal S2 Dialysis Vascular Access: Arteriovenous Fistula thrill: Yes bruit: Yes Gastrointestinal: Present: normoactive bowel sounds, no tenderness, no guarding Integumentary: Present: warm and dry, ecchymotic Neurologic: Present: no focal deficit, no asterixis, alert and oriented x3 Musculoskeletal: Present: no erythema, no cyanosis, no clubbing Psychiatric: Present: mood/affect appropriate, cooperative - Lab 11/19/17 03:50 11/19/17 03:50 Most recent lab results ABG pH 7.40 pH Units (7.32-7.45) 11/17/17 22:24 ABG pCO2 40 mmHg (35-45) 11/17/17 22:24 ABG pO2 76 mmHg (85-104) L 11/17/17 22:24 ABG HCO3 25 mEq/L (21-27) 11/17/17 22:24 ABG O2 Saturation 95 % (95-98) 11/17/17 22:24 Calcium 8.6 mg/dL (8.6-10.3) 11/19/17 03:50 Phosphorus 9.7 mg/dL (2.7-4.5) H 11/14/17 03:42 Magnesium 2.2 mg/dL (1.6-2.6) 11/11/17 18:27 - VTE Documentation of Mechanical Device: Graduated compression elastic hosiery Consult Discharge Plan - Plan Instructions: Mitral Regurgitation (DC), Bacterial Pneumonia (DC), End-Stage Kidney Disease (DC) Additional Instructions: Nephrology recommended dialysis at least Sunday with ultrafiltration as needed to improve his respiratory status. Referrals: Jeromy Wall MD [Primary Care Provider] -
--- NOTE | 2017-11-19 13:01 | Discharge Summary ---
<Anshu Sky - Last Filed: 11/19/17 13:29> Date of Encounter: 11/19/17 Time of Encounter: 12:55 - Discharge Diagnosis (1) Acute and chronic respiratory failure with hypoxia Priority: Primary Status: Acute (2) Hypotension Priority: Primary Status: Acute Qualifiers: Hypotension type: unspecified hypotension type Qualified Code(s): I95.9 - Hypotension, unspecified (3) Systolic CHF Priority: Primary Status: Acute Qualifiers: Congestive heart failure chronicity: chronic Qualified Code(s): I50.22 - Chronic systolic (congestive) heart failure (4) Cardiomyopathy Priority: Secondary Status: Chronic Qualifiers: Cardiomyopathy type: unspecified Qualified Code(s): I42.9 - Cardiomyopathy , unspecified (5) Acute exacerbation of chronic obstructive airways disease Priority: Primary Status: Acute (6) Community acquired pneumonia Priority: Primary Status: Acute Qualifiers: Laterality: right Lung location: unspecified part of lung Qualified Code( s): J18.9 - Pneumonia, unspecified organism (7) HTN (hypertension) Priority: Secondary Status: Chronic Qualifiers: Hypertension type: essential hypertension Qualified Code(s): I10 - Essential (primary) hypertension (8) Leukocytosis Priority: Secondary Status: Resolved Qualifiers: Leukocytosis type: unspecified Qualified Code(s): D72.829 - Elevated white blood cell count, unspecified (9) ESRD (end stage renal disease) Priority: Primary Status: Chronic (10) Atrial flutter Priority: Secondary Status: Chronic Qualifiers: Atrial flutter type: typical Qualified Code(s): I48.3 - Typical atrial flutter (11) Acute bronchitis due to Rhinovirus Priority: Primary Status: Acute (12) DVT prophylaxis Priority: Secondary Status: Acute - Discharge Medications Home Medications: Famotidine [Pepcid] 10 mg PO BID #60 tablet 07/03/15 [Rx] Albuterol Sulfate [Albuterol Inhaler] 2 puff IH Q4HR 07/29/15 [History] Budesonide/Formoterol 160/4.5 [Symbicort] 2 puff IH BIDR 07/29/15 [History] Gabapentin [Neurontin] 100 mg PO TID 07/29/15 [History] Calcium Acetate [Phos-LO] 667 mg PO TIDWM #90 capsule 10/02/15 [Rx] Furosemide [Lasix] 40 mg PO DAILY 08/31/16 [History] Oxygen 2.5 l NS AD 08/31/16 [History] Albuterol Neb [Proventil Neb] 2.5 mg IH Q4HR PRN #30 vial.neb 09/03/16 [Rx] Multivitamin [Multivitamins] 1 cap PO DAILY 11/03/16 [History] Magic Mouthwash [Magic Mouthwash BLM] 10 ml PO QID PRN #240 ml 12/18/16 [Rx] Docusate [Colace] 100 mg PO DAILY #20 capsule 03/02/17 [Rx] Megestrol Acetate [Megace] 800 mg PO DAILY #400 mls 04/12/17 [Rx] Acetylcysteine 20% 600 mg PO BID #60 syringe 09/07/17 [Rx] Atorvastatin [Lipitor] 40 mg PO HS #30 tablet 09/07/17 [Rx] Levalbuterol Neb [Xopenex Neb] 1.25 mg IH Q6H PRN #60 vial.neb 09/07/17 [Rx] Lidocaine/Prilocaine CREAM [Emla] 1 gm TP DAILY PRN tube 09/07/17 [Rx] Ondansetron [Zofran ODT] 8 mg SL Q4HR PRN #60 tab.rapdis 09/07/17 [Rx] OxyCODONE Immed Rel [Roxicodone 15 MG] 15 mg PO Q8HR PRN #90 tablet 09/24/17 [Rx ] Diltiazem CD (24hr) [Cardizem CD] 240 mg PO DAILY 11/10/17 [History] Guaifenesin [Mucinex] 600 mg PO BID 11/10/17 [History] Amiodarone [Cordarone] 200 mg PO BID tablet 11/19/17 [Rx] Aspirin 81 mg PO DAILY tab.chew 11/19/17 [Rx] Levalbuterol Neb [Xopenex Neb] 1.25 mg IH [id number] vial.neb 11/19/17 [Rx] Metoprolol XL (24 HR) Succ [Toprol Xl] 25 mg PO DAILY tab.er.24h 11/19/17 [Rx] Midodrine [ProAmatine] 5 mg PO 0800,1200,1700 tablet 11/19/17 [Rx] Vancomycin [Vancocin] 0 each IVPB RPHPROT PRN vial 11/19/17 [Rx] methylPREDNISolone [Solu-MEDROL] 40 mg IVP DAILY vial 11/19/17 [Rx] Allergies/Adverse Reactions: 3 Allergy/AdvReac Type Severity Reaction Status Date / Time pollen extracts Allergy Itching Verified 11/12/17 11:02 shellfish derived AdvReac Nausea Verified 11/12/17 11:02 IVP DYE Allergy Intermediate Vomiting Uncoded 11/12/17 11:02 Labs on day of discharge: Labs from last 24 hours 11/19/17 11/19/17 11/19/17 11:19 04:52 03:50 WBC RBC Hgb Hct MCV MCH MCHC RDW Plt Count MPV Immature Gran % Seg Neutrophils % Lymphocytes % Monocytes % Eosinophils % Basophils % Neutrophils # Lymphocytes # Monocytes # Eosinophils # Basophils # PT 59.8 H* INR 5.4 H* Sodium Potassium [place] Carbon Dioxide BUN Creatinine Est GFR ( Amer) Est GFR (Non-Af Amer) BUN/Creatinine Ratio Glucose POC Glucose Calculated Osmolality Lactic Acid 0.6 Calcium Vancomycin Trough 16.0 11/19/17 11/19/17 11/19/17 03:50 03:50 03:50 WBC 6.9 RBC 2.97 L Hgb 8.6 L Hct 28.0 L MCV 94.3 MCH 29.0 MCHC 30.7 L RDW 18.6 H Plt Count 132 L MPV 12.2 Immature Gran % 0.6 Seg Neutrophils % 93.5 Lymphocytes % 2.0 Monocytes % 3.9 Eosinophils % 0.0 Basophils % 0.0 Neutrophils # 6.5 Lymphocytes # 0.1 L Monocytes # 0.3 Eosinophils # 0.0 Basophils # 0.0 PT TNP INR TNP Sodium 136 Potassium 5.4 H [place] 95 L Carbon Dioxide 22 L BUN 102 H Creatinine 6.30 H Est GFR ( Amer) 11 L Est GFR (Non-Af Amer) 9 L BUN/Creatinine Ratio 16 Glucose 124 H POC Glucose Calculated Osmolality 315 H Lactic Acid Calcium 8.6 Vancomycin Trough 11/18/17 11/18/17 11/18/17 23:21 23:00 20:00 WBC RBC Hgb 8.4 L Hct 27.5 L MCV MCH MCHC RDW Plt Count MPV Immature Gran % Seg Neutrophils % Lymphocytes % Monocytes % Eosinophils % Basophils % Neutrophils # Lymphocytes # Monocytes # Eosinophils # Basophils # PT INR Sodium Potassium [place] Carbon Dioxide BUN Creatinine Est GFR ( Amer) Est GFR (Non-Af Amer) BUN/Creatinine Ratio Glucose POC Glucose 251 H 276 H Calculated Osmolality Lactic Acid Calcium Vancomycin Trough 11/18/17 11/18/17 11/18/17 17:36 15:48 14:58 WBC RBC Hgb Hct MCV MCH MCHC RDW Plt Count MPV Immature Gran % Seg Neutrophils % Lymphocytes % Monocytes % Eosinophils % Basophils % Neutrophils # Lymphocytes # Monocytes # Eosinophils # Basophils # PT 48.1 H* 49.1 H* D INR 4.3 4.4 H* D Sodium Potassium [place] Carbon Dioxide BUN Creatinine Est GFR ( Amer) Est GFR (Non-Af Amer) BUN/Creatinine Ratio Glucose POC Glucose 227 H Calculated Osmolality Lactic Acid Calcium Vancomycin Trough 11/18/17 11/18/17 11/18/17 11:48 07:28 05:36 WBC RBC Hgb Hct MCV MCH MCHC RDW Plt Count MPV Immature Gran % Seg Neutrophils % Lymphocytes % Monocytes % Eosinophils % Basophils % Neutrophils # Lymphocytes # Monocytes # Eosinophils # Basophils # PT INR Sodium Potassium [place] Carbon Dioxide BUN Creatinine Est GFR ( Amer) Est GFR (Non-Af Amer) BUN/Creatinine Ratio Glucose POC Glucose 204 H 196 H 162 H Calculated Osmolality Lactic Acid Calcium Vancomycin Trough 11/18/17 03:39 WBC RBC Hgb Hct MCV MCH MCHC RDW Plt Count MPV Immature Gran % Seg Neutrophils % Lymphocytes % Monocytes % Eosinophils % Basophils % Neutrophils # Lymphocytes # Monocytes # Eosinophils # Basophils # PT INR Sodium Potassium [place] Carbon Dioxide BUN Creatinine Est GFR ( Amer) Est GFR (Non-Af Amer) BUN/Creatinine Ratio Glucose POC Glucose 142 H Calculated Osmolality Lactic Acid Calcium Vancomycin Trough Preliminary micro results at discharge 11/13/17 20:30 Sputum Culture - Preliminary Sputum Methicillin Resistant S.aureus Fungal Elements - Impressions ITS Impressions Chest CT 11/11/17 11:06 IMPRESSION: Moderate severe emphysema. Architectural distortion and increased density in the right perihilar and posterior right upper lung which is very similar to the prior study 07/10/2017 likely related to prior neoplasm status post radiation treatment. Mild patchy ground-glass opacity within the left lower lobe and lingula, likely infectious pneumonitis. D/ / Eboni Jeffers Cha, MD / Eboni Jeffers Cha, MD Interpreting Provider: Eboni Jeffers Cha, MD Chest X-Ray 11/13/17 17:31 IMPRESSION: The endotracheal tube tip 3.6 cm above the gonzales. Chronic scarring in the right suprahilar region with interval improvement in aeration of the lungs. D/ / 11/13/2017 18:00:22 Ashutosh Grubbs MD / renetta Interpreting Provider: Ashutosh Grubbs MD Chest X-Ray 11/13/17 18:39 IMPRESSION: Interval placement of left jugular central venous catheter. No pneumothorax. Overall increased opacity throughout the lungs, increased since CT 11/11/2017, likely edema. Extensive pneumonia could have this appearance as well. D/ / Eboni Jeffers Cha, MD / Eboni Jeffers Cha, MD Interpreting Provider: Eboni Jeffers Cha, MD X-Ray 11/13/17 19:24 IMPRESSION: Enteric catheter in satisfactory position. D/ / Kalen Moody MD / Kalen Moody MD Interpreting Provider: Kalen Moody MD Chest X-Ray 11/15/17 07:20 IMPRESSION: Patient has been extubated, with similar appearing diffuse increased interstitial markings throughout the lungs bilaterally, with an area of architectural distortion of the right perihilar region which has been seen previously as well. A component of underlying interstitial pneumonitis or pulmonary edema is in the differential superimposed on emphysema. D/ / Gerber Gómez MD / Gerber Gómez MD Interpreting Provider: Gerber Gómez MD Chest X-Ray 11/19/17 08:29 IMPRESSION: Overall stable examination demonstrating cardiomegaly, diffuse interstitial changes, and ill-defined superimposed airspace opacities within the left mid to lower lung. No evidence for pneumothorax. D/ / Jesse Rosa MD / Jesse Rosa MD Interpreting Provider: Jesse Rosa MD Date of admission: 11/10/17 12:11 Primary care physician: Jeromy Wall MD Consults: 11/12/17 09:00 Consult to Dialysis [CONS] ONCE 11/13/17 09:11 Consult to Cardiology [CONS] Routine Comment: Consulting Provider: Cardiology [place] Reason for Consult: sustained Aflutter RVR Time Notified: 09:12 Call Completed: Yes 11/13/17 13:15 Consult to Dialysis [CONS] ONCE 11/13/17 18:43 Consult to Pulmonology [CONS] Routine Consulting Provider: [facility] [place] Reason for Consult: Acute respiratory failure, altered mental status, hypotensive postdialysis Call Completed: Yes 11/14/17 11:00 Consult to Dialysis [CONS] ONCE 11/15/17 08:15 Consult to Dialysis [CONS] ONCE 11/15/17 08:31 Consult to Palliative Care [CONS] Routine Comment: Consulting Provider: [facility] [place] Reason for Consult: longterm goals, ESRD on HD, lung CA, COPD, AFib, possible code status change Call Completed: Yes 11/16/17 10:15 Consult to Dialysis [CONS] ONCE 11/17/17 08:45 Consult to Dialysis [CONS] ONCE 11/19/17 07:00 Consult to Dialysis [CONS] ONCE Discharging clinician: Ezequiel Perla Anticipated date of discharge: 11/19/17 - Patient Status Disposition: Transfer Critical Access Hosp Condition: Fair Overall status at discharge: patient is not back to baseline - Discharge Instructions Instructions: Mitral Regurgitation (DC), Bacterial Pneumonia (DC), End-Stage Kidney Disease (DC) Follow Up With: Jeromy Wall MD [Primary Care Provider] - Additional Instructions: Nephrology recommended dialysis at least Sunday with ultrafiltration as needed to improve his respiratory status. - Diet and Activity Activity: as per physical therapy Diet: other (Renal) - Hospital Course Hospital course: Mr. Guardado is a 61 year old male with PMH of ESRD on HD, squamous cell lung carcinoma (s/p bronch debulking 12/15 and started RT and wk1 Taxol 12/15, held Carbo d/t CKD), COPD on LTOT, Afib on Coumadin, HTN and systolic CHF who was sent to the ER on 11/09/17 for dialysis (MWF) for shortness of breath and palpitations. In the ER pt was reported to be dyspneic and in Aflutter with heart rate in 150s. Pt noted to have diffuse wheezing, was given IV steroids and started on cardizem gtt. Albuterol was not given due to tachycardia. Pt reports of not taking his home medications prior to dialysis including Cardizem , Coreg, and Coumadin. He reports of improvement in his breathing after receiving IV steroids. His rate is better controlled and currently denies any chest pain. He reports of chronic back pain and requests his home medications. Denies any cough, fever, or chills. CT chest demonstrated mild patchy opacity within the left lower lobe and lingula. Patient was subsequently admitted to [facility] for acute respiratory failure secondary to COPD exacerbation and bronchitis due to Rhinovirus. Additionally, he was started on his home dosing of Coreg and Cardizem after HR less than 100 with discontinuation of cardizem gtts for his atrial flutter. He was started on systemic steroids, Xopenex, O2 supplementation and IV Cefepime, Azithromycin and Vancomycin. Home dosing of Coreg and Cardizem was started after HR less than 100 with discontinuation of cardizem gtt. Respiratory panel found Rhinovirus positive and was placed on droplet precautions. Nephrology was consulted for his ESRD on HD and continued HD MWF. Cardiology was brought on as well due his history of CAD, s/p CABG 2008 and C 2014 with a mildly elevated troponin 0.05. Most recent ECHO from August 2017 showed ejection fraction of 45%, moderate to severe eccentric mitral regurgitation and moderate pulmonary hypertension. Recommended changing Coreg to Toprol and continue amiodarone gtt for rhythm control. On 11/13/17 patient was unresponsive, hypotensive and bradycardic as well as hypoxic after hemodialysis. He had agonal breathing. His ABG showed pH 7.10, pCO2 60, pO2 78 and HCO3 19 consistent with hypercarbic respiratory failure as well as combined metabolic and respiratory acidosis. Atropine was started with mild improvement and was transitioned to Levophed. Emergent intubation was performed for airway protection and CVC into the left IJV was placed. Patient will was placed on mechanical ventilation with assist control, tidal volume of 550, respiratory rate of 14, FiO2 to start at 100% and titrate down as tolerated to maintain saturation above 92%. PEEP of 5. Chest x-ray confirmed adequate placement for CVC and ET tube. Pulmonary and Critical Care team was consulted for further evaluation and intervention as there is a concern for possible cardiac/pulm/neuro involvement. Repeat ABG showed pH 7.40, pCO2 38, pO2 118 and HCO3 24. EMR review shows additional study for his carotids back in May 2017 showing right proximal ICA has a moderate, 40-59% stenosis and left mid ICA has a severe, 60-79% stenosis. He is hemodynamically stable at this time on Levophed and sedated on Fentanyl and Profofal. Patient was successfully extubated the following morning he is a Precedex and was weaned off pressure support. Midodrine was started 3 times a day with toleration. Most recent ABG on 11/17/17 shows pH 7.40 , PCO2 40, PaO2 76 and HCO3 25. Over the next 5 days, patient received 3 rounds of hemodialysis and one round of ultrafiltration. Patient eventually showed a decrease in his appetite and required BiPAP at 16/8 with 30% throughout the day. Blood pressures trending down and Levophed was started again at 5 with midodrine increased to 5 mg 3 times a day. Patient is currently on vancomycin and Zosyn. In total, patient has received 2 days of Levaquin, 3 days of azithromycin, 3 days of cefepime, 6 days of Zosyn and 9 days of vancomycin. A total of 9 days of IV steroids were administered and is currently on 40 mg IV once a day. Sputum culture came back positive for MRSA. INR daja to 5.4 and amiodarone was switched to by mouth for possible drug interaction. Oncology was consulted for his history of squamous cell lung carcinoma and reiterated his prognosis to be poor with a 20% median survival rate at 25 months. Palliative team, nephrology, cardiology, internal medicine and ICU team collectively met with family and patient to discuss long-term disposition. Patient and are in agreement to continue aggressive therapy and was to be transferred to [place] for further cardiac interventions if recommended. Case was discussed with cardiology team and they accept the patient for transfer today. Patient did receive hemodialysis on the day of discharge and last known blood work demonstrates WBC 6.9, hemoglobin 8.6, hematocrit 28, platelets 132, PT is 59.8. INR 5.4, sodium 136, potassium 5.4, chloride 95, monoxide 22, BUN 102, creatinine 6.3 and glucose 124. Lactic acid did drop to 0.6. Chest x-ray performed on 11/19/17 is relatively unchanged in previous with a small opacity seen in the left lower lobe. Patient was discharged in stable condition to [facility] on 11/19/2017. All questions and concerns were addressed. - Time Spent with Patient Total time spent providing and/or coordinating discharge services: Physical Examination Vital Signs: Vital Signs, Last 4 Hours Pulse Resp BP Pulse Ox 11/19/17 12:00 100 24 126/74 98 11/19/17 11:46 107 11/19/17 11:00 107 24 100/62 94 11/19/17 10:15 121 22 105/70 95 11/19/17 09:56 24 90/53 92 11/19/17 09:00 122 24 90/53 98 General appearance: no acute distress Eyes: nonicteric ENT: oropharynx moist Neck: supple Effort: normal Inspection: normal Auscultation: bilateral: diminished breath sounds (crackles) Cardiovascular: irregular rhythm Gastrointestinal: normoactive bowel sounds, non-distended Integumentary: normal Extremities: no cyanosis, no edema, no clubbing Musculoskeletal: no deformities normal mental status, non-focal exam mood appropriate, affect normal - VTE Documentation of Mechanical Device: Graduated compression elastic hosiery <Ezequiel Perla - Last Filed: 11/20/17 07:23> Date of Encounter: 11/20/17 Labs on day of discharge: Labs from last 24 hours 11/19/17 11/19/17 11/19/17 12:27 11:19 07:26 POC Glucose 148 H Lactic Acid 0.6 Blood Type O POSITIVE Antibody Screen POSITIVE A Antibody Identification Known Anti-Fya Preliminary micro results at discharge 11/13/17 20:30 Sputum Culture - Preliminary Sputum Methicillin Resistant S.aureus Fungal Elements - Impressions ITS Impressions Chest CT 11/11/17 11:06 IMPRESSION: Moderate severe emphysema. Architectural distortion and increased density in the right perihilar and posterior right upper lung which is very similar to the prior study 07/10/2017 likely related to prior neoplasm status post radiation treatment. Mild patchy ground-glass opacity within the left lower lobe and lingula, likely infectious pneumonitis. D/ / Eboni Jeffers Cha, MD / Eboni Jeffers Cha, MD Interpreting Provider: Eboni Jeffers Cha, MD Chest X-Ray 11/13/17 17:31 IMPRESSION: The endotracheal tube tip 3.6 cm above the gonzales. Chronic scarring in the right suprahilar region with interval improvement in aeration of the lungs. D/ / 11/13/2017 18:00:22 Ashutosh Grubbs MD / renetta Interpreting Provider: Ashutosh Grubbs MD Chest X-Ray 11/13/17 18:39 IMPRESSION: Interval placement of left jugular central venous catheter. No pneumothorax. Overall increased opacity throughout the lungs, increased since CT 11/11/2017, likely edema. Extensive pneumonia could have this appearance as well. D/ / Eboni Jeffers Cha, MD / Eboni Jeffers Cha, MD Interpreting Provider: Eboni Jeffers Cha, MD X-Ray 11/13/17 19:24 IMPRESSION: Enteric catheter in satisfactory position. D/ / Kalen Moody MD / Kalen Moody MD Interpreting Provider: Kalen Moody MD Chest X-Ray 11/15/17 07:20 IMPRESSION: Patient has been extubated, with similar appearing diffuse increased interstitial markings throughout the lungs bilaterally, with an area of architectural distortion of the right perihilar region which has been seen previously as well. A component of underlying interstitial pneumonitis or pulmonary edema is in the differential superimposed on emphysema. D/ / Gerber Gómez MD / Gerber Gómez MD Interpreting Provider: Gerber Gómez MD Chest X-Ray 11/19/17 08:29 IMPRESSION: Overall stable examination demonstrating cardiomegaly, diffuse interstitial changes, and ill-defined superimposed airspace opacities within the left mid to lower lung. No evidence for pneumothorax. D/ / Jesse Rosa MD / Jesse Rosa MD Interpreting Provider: Jesse Rosa MD Date of admission: 11/10/17 12:11 Primary care physician: Jeromy Wall MD Consults: 11/12/17 09:00 Consult to Dialysis [CONS] ONCE 11/13/17 09:11 Consult to Cardiology [CONS] Routine Comment: Consulting Provider: Cardiology [place] Reason for Consult: sustained Aflutter RVR Time Notified: 09:12 Call Completed: Yes 11/13/17 13:15 Consult to Dialysis [CONS] ONCE 11/13/17 18:43 Consult to Pulmonology [CONS] Routine Consulting Provider: [facility] [place] Reason for Consult: Acute respiratory failure, altered mental status, hypotensive postdialysis Call Completed: Yes 11/14/17 11:00 Consult to Dialysis [CONS] ONCE 11/15/17 08:15 Consult to Dialysis [CONS] ONCE 11/15/17 08:31 Consult to Palliative Care [CONS] Routine Comment: Consulting Provider: [facility] [place] Reason for Consult: longterm goals, ESRD on HD, lung CA, COPD, AFib, possible code status change Call Completed: Yes 11/16/17 10:15 Consult to Dialysis [CONS] ONCE 11/17/17 08:45 Consult to Dialysis [CONS] ONCE 11/19/17 07:00 Consult to Dialysis [CONS] ONCE - Hospital Course Hospital course: Mr. Guardado is a 61 year old male - Time Spent with Patient Total time spent providing and/or coordinating discharge services: - Attending Attestation I examined this patient and my medical decision-making was reviewed with the Resident Physician. I agree with the documented findings, disposition and treatment plan as described except to the extent set forth below. We independently had [id number] contact with the patient
--- NOTE | 2017-11-19 13:02 | Event Note ---
Date of Encounter: 11/19/17 Time of Encounter: 13:00 Events of weekend noted - pt awaiting transfer to [facility]. D/W Dr. Perla who met with this am. Palliative will follow clinical course at a distance. Please call if needed.
--- NOTE | 2017-11-19 14:10 | Event Note ---
Date of Encounter: 11/19/17 Time of Encounter: 09:45 - Cardiology Event Note Patient seen this morning and overall reports shortness of breath has improved. He continues to deny chest pain or palpitations. is not currently at bedside. He confirms after discussions with her, he has now rescinded his DNR status that he implemented over the weekend and now desires to be full code. Discussed with primary service and apparently and patient agreeable to transfer to [place] for further evaluation of severe mitral regurgitation. Discharge in process and transfer pending. I attempted to reconnect with again this afternoon, however currently not at bedside. Again, no medical records received from [place] to indicate any indications regarding surgical candidacy for his severe mitral regurgitation. Discussed and reviewed with with Dr. Smith. Laboratory Tests 11/18/17 11/18/17 11/19/17 04:10 04:10 03:50 Hgb 9.2 L 8.6 L Hct 29.7 L 28.0 L INR Creatinine 5.04 H Est GFR (Non-Af Amer) 12 L 11/19/17 03:50 Hgb Hct INR TNP Creatinine Est GFR (Non-Af Amer)
[2017-11-19] MEDS ORDERED: Vancomycin 500 MG in D5% in Water (Mini-Bag+) 100 ML IVPB ONE (18:00)
[2017-11-19 18:03] VITALS: BP 113/78
[2017-11-19] MEDS ORDERED: 0.9 % Sodium Chloride 2,000 ML ONE (18:06)
[2017-11-19] MEDS: D10% in Water 500 ML IVC SCH (18:08)
[2017-11-19] MEDS: Dexmedetomidine HCl 400 MCG/100 ML MLS IVC SCH (18:46)
[2017-11-19] MEDS ORDERED: Aminoglycoside Consult 1 EACH MC ONE (19:32)
--- NOTE | 2017-11-20 06:55 | Electrocardiograph Report ---
[address] [address] Test Date: 2017-11-16 Pat Name: Dario Guardado Department: [id number] Room: 03 Gender: M Barman: : 1955 Requested By: Dennis Hamilton Order Number: [id number] Reading MD: Bonifacio Esteban MD Measurements Intervals [place] Rate: 129 P: OR: 0 QRS: 26 QRSD: 113 T: -56 QT: 323 QTc: 399 Interpretive Statements ATRIAL FIBRILLATION WITH RAPID VENTRICULAR RESPONSE WITH ABERRANT CONDUCTION OR VENTRICULAR PREMATURE COMPLEXES INDETERMINATE AXIS INCOMPLETE RIGHT BUNDLE BRANCH BLOCK Poor R wave progression Electronically Signed On 11-20-2017 6:53:46 EST by Bonifacio Esteban MD
[2017-11-20] MEDS ORDERED: MethylPREDNISolone 40 MG/ML VIAL IVP SCH (09:00)
--- NOTE | 2017-11-22 14:15 | Event Note ---
Date of Encounter: 11/22/17 Time of Encounter: 14:14 patient discharged to [facility] on appropriate ATB therapy
== END 2017-11-19 19:33 | disposition critical access hospital (66) | DRG 208 ==
LOC: 2ANU 18:07 → EMEROO 18:07 → 2ANU 21:29 → SUATTDRO 11-10 12:11 → ICNU 11-11 18:49
PROVIDERS: ADMIT Internal Medicine Hematology & Oncology; ATTEND Internal Medicine